=== PATIENT | female | born 1960 | race Caucasian/White ===

== ENCOUNTER → 2017-03-08 11:37 | Day surgery (SDC) | payer MEDICARE, MEDICAID, SELFPAY ==
[2017-03-08 12:03] VITALS: BP 99/57; PULSE 83; RESP 18; TEMP 36.5; O2SAT 96
[2017-03-08 12:10] VITALS: BP 124/67; PULSE 81; RESP 18
[2017-03-08 12:12] VITALS: BP 135/95; PULSE 90; RESP 20
--- NOTE | 2017-03-08 12:16 | P.PCN_ITS ---
- Procedure Date: 03/08/17 Time: 12:14 Anesthesiologist:: Dada Harman CRNA Complications:: None Pre-procedure Diagnosis:: Bilateral sacroiliitis Post-procedure Diagnosis:: Same Indications for Procedure:: Very pleasant 56-year-old white female that comes to our procedure clinic today for bilateral SI joint injections. Patient has extreme point tenderness over the bilateral SI joints. She has responded well to these injections in the past Procedure Details:: Procedure: Bilateral sacroiliac joint injections under fluoroscopy Informed consent was obtained and the risks and benefits of the procedure were explained to the patient.~ The patient was taken to the procedure room and noninvasive monitors were placed including a noninvasive blood pressure cuff and pulse oximeter.~ The patient was placed prone on the procedure table. Both hips were cleansed using Betadine as a cleansing solution. C-arm fluoroscopy was used to view the right sacroiliac joint.~ The skin and subcutaneous tissues were anesthetized using lidocaine 1.5% and a 25-gauge needle.~ After this, a 22- gauge spinal needle was inserted under fluoroscopic guidance into the inferior aspect of the right sacroiliac joint.~ Omnipaque dye was injected and good spread was seen throughout the joint.~ After this, approximately 5 mL of bupivacaine, 0.25% and Depo-Medrol, 40 mg was incrementally injected into the right sacroiliac joint. We then moved to the left sacroiliac joint.~ The skin and subcutaneous tissues were anesthetized using lidocaine 1.5% and a 25-gauge needle.~ After this, a 22- gauge spinal needle was inserted under fluoroscopic guidance into the inferior aspect of the left sacroiliac joint.~ Omnipaque dye was injected and good spread was seen throughout the joint. After this, approximately 5 mL of bupivacaine, 0.25% and Depo-Medrol, 40 mg was incrementally injected into the left sacroiliac joint.~ The patient tolerated the procedure well with no complications. The patient was observed in the Pain Clinic and then was discharged home neurologically intact. Plan and Disposition:: Patient was reevaluated 10 minutes post procedure. She is doing very well. She will return to see us in the clinic for further evaluation.
[2017-03-08 12:21] VITALS: BP 110/64; PULSE 83; RESP 20
== END ==
PROVIDERS: Family Provider Nurse Practitioner Family; PCP Nurse Practitioner Family; Visit Provider Nurse Anesthetist, Certified Registered
DX: M46.1 Sacroiliitis, not elsewhere classified (principal)
CPT/HCPCS: 27096; G0260; J1040

== ENCOUNTER → 2017-04-25 10:08 | Outpatient (POV) | payer MEDICARE, MEDICAID, SELFPAY ==
[2017-04-25 10:21] VITALS: BP 120/55; PULSE 104; RESP 20; O2SAT 96; BMI 23.3
--- NOTE | 2017-04-25 12:39 | HMH.PAINSOAP ---
[facility] Pain Management SOAP Note Subjective:: Patient is a pleasant 56-year-old white female who we are treating in our pain clinic for chronic sacroiliitis bilaterally. Patient has done very well after her last injection. She reports 80-90% relief for several weeks. However she has recently had an increase in pain on the right side. She is also having piriformis pain. She is describes the pain as shocking and radiating down her leg to her knee. States that sitting or standing does relieve it somewhat. Patient has been less active due to this. Patient is interested in injective therapy to help with this situation. Patient has tried and failed anti-inflammatories, physical therapy, medications. ROS General: no recent weight change, no fever, no sleep disturbances Respiratory: no cough, no shortness of air, no recurring pulmonary infections Cardiovascular/Peripheral Vascular: No chest pain, No palpitations, no edema, no shortness of breath. Gastrointestinal: no incontinence, normal bowel movements reported Genitourinary: no incontinence Musculoskeletal: Lumbar back pain, bilateral sacroiliitis, right piriformis syndrome Psychiatric: normal mood/ affect, Neurological: [denies weakness in extremities], [denies balance issues] Objective:: Physical Exam General: Alert and oriented x3, no acute distress, pleasant and cooperative, [on room air] Lungs: Resps E/U, Symmetrical chest expansion, Eyes: PERRL Musculoskeletal: Flexion and extension of lumbar spine somewhat guarded secondary to pain, deep tendon reflexes normal, strength in upper and lower extremities [5/5], [abnormal gait noted], positive Rosa's test on the right side. Extreme point tenderness over the right SI and right piriformis. 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 twice daily for 5 days we will also give her 1 week worth of tramadol 50 mg p.o. twice daily. I discussed this with Dr. Mata and he has reviewed her chart and agrees. Her CAMILLE #[id number] reviewed. I discussed with the patient that this would be a one-time thing. We will also schedule a right SI joint injection along with a right piriformis injection. I believe given the efficacy of the injections in the past that this will be very beneficial for her. Patient has tried and failed anti-inflammatories, physical therapy, medications. This note was dictated using voice recognition software and may contain errors or omissions
--- NOTE | 2017-04-25 12:43 | P.CONS_ITS ---
[facility] Pain Management SOAP Note Subjective:: Patient is a pleasant 56-year-old white female who we are treating in our pain clinic for chronic sacroiliitis bilaterally. Patient has done very well after her last injection. She reports 80-90% relief for several weeks. However she has recently had an increase in pain on the right side. She is also having piriformis pain. She is describes the pain as shocking and radiating down her leg to her knee. States that sitting or standing does relieve it somewhat. Patient has been less active due to this. Patient is interested in injective therapy to help with this situation. Patient has tried and failed anti- inflammatories, physical therapy, medications. ROS General: no recent weight change, no fever, no sleep disturbances Respiratory: no cough, no shortness of air, no recurring pulmonary infections Cardiovascular/Peripheral Vascular: No chest pain, No palpitations, no edema, no shortness of breath. Gastrointestinal: no incontinence, normal bowel movements reported Genitourinary: no incontinence Musculoskeletal: Lumbar back pain, bilateral sacroiliitis, right piriformis syndrome Psychiatric: normal mood/ affect, Neurological: [denies weakness in extremities], [denies balance issues] Objective:: Physical Exam General: Alert and oriented x3, no acute distress, pleasant and cooperative, [ on room air] Lungs: Resps E/U, Symmetrical chest expansion, Eyes: PERRL Musculoskeletal: Flexion and extension of lumbar spine somewhat guarded secondary to pain, deep tendon reflexes normal, strength in upper and lower extremities [5/5], [abnormal gait noted], positive Rosa's test on the right side. Extreme point tenderness over the right SI and right piriformis. 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 twice daily for 5 days we will also give her 1 week worth of tramadol 50 mg p.o. twice daily. I discussed this with Dr. Mata and he has reviewed her chart and agrees. Her CAMILLE #[id number] reviewed. I discussed with the patient that this would be a one-time thing. We will also schedule a right SI joint injection along with a right piriformis injection. I believe given the efficacy of the injections in the past that this will be very beneficial for her. Patient has tried and failed anti-inflammatories, physical therapy, medications. This note was dictated using voice recognition software and may contain errors or omissions
--- NOTE | 2017-04-27 08:09 | PC.PHONENOTE ---
04/25/17-called in Rx for Prednisone 20mg BID x5 days and Tramadol 50mg TID x7 days to pt's pharmacy
== END ==
PROVIDERS: Family Provider Nurse Practitioner Family; PCP Nurse Practitioner Family; Visit Provider Clinical Nurse Specialist Family Health
DX: M46.1 Sacroiliitis, not elsewhere classified (principal)
CPT/HCPCS: 99212

== ENCOUNTER 2017-05-02 09:34 | Day surgery (SDC) | payer MEDICARE, MEDICAID, SELFPAY ==
[2017-04-26 15:18] VITALS: BMI 23.3
[2017-05-02] VITALS (7 sets, daily range): BP systolic 75–109; BP diastolic 49–75; PULSE 63–74; RESP 8–18; TEMP 36.5–36.6; O2SAT 92–98
--- NOTE | 2017-05-02 11:05 | P.PN_ITS ---
[facility] Anesthesia Checklist - Patient Identification Patient Identification: Arm Band, Verbal (Name & ) - Structural Data Admitted From: Home Planned Operative Procedure/s: colonoscopy Consent for Planned Operative Procedure(s) Verified: Yes Verified Documents: Surgical Consent - NPO Status Verified Time NPO: 00:00 - Additional verifications Patient : No Anesthesia Reactions: No Hx Blood Transfusions: No Blood Transfusion Reaction: No Cephalosporin Allergy: No Previous Colonoscopy: No - Cardiovascular Assessment Heart Sounds: S1 & S2 Pulse Strength: Baseline Pulse Rhythm: Regular Peripheral Edema: No - Airway Assessment C-Spine Mobility Assessed: Yes TMJ Mobility Assessed: Yes Dentition: Good Dentition - Neurological Assessment Level of Consciousness: Awake, Alert, Appropriate Hx Seizures: No Numbness or tingling in extremities: No - Anesthesia Plan Anesthesia Risk discussed: Yes Anesthesia Plan: Verified ASA Class: II Anesthesia Type: MAC [facility] Anesthesia HX I have reviewed the patient's past medical history: Yes Medical History: Reports:: Lung Disease (sleep apnea-does not use cpap) Denies:: Cancer, Diabetes Mellitus Type 1, Diabetes Mellitus Type 2, Internal Pacemaker, MRSA, Seizures Other Medical History: Reports: Arthritis, Fibromyalgia, Sinus Problems. Denies : Blood Transfusion Reaction Laterality Cases: Bilateral: Tonsillectomy Other Surgeries: Yes: Appendectomy. No: Pacemaker Amputation: No Fractures: No *Family Hx:: No significant family history
--- NOTE | 2017-05-02 12:00 | HMH.PROC ---
[facility] Procedure Note Procedure Note:: Colonoscopy Procedure Report: Colonoscopy with cold snare polypectomy Endoscopist: Mahad Quiñones II, MD Referring physician: Rosendo PADRON [facility] (obstetrics/gynecology) Date of Procedure: May 02, 2017 Equipment: Olympus 180 Variable Stiffness Pediatric Colonoscope Sedation: MAC sedation Indication: Mrs. Foreman is a 56-year-old female who is here for initial screening colonoscopy. She reports no abdominal pain, weight loss, change in her bowel habits or rectal bleeding. She reports no family history of colon cancer. Procedure: Prior to the procedure, a history and physical exam was performed, and patient's medications and allergies were reviewed. The risks, benefits and alternatives of the sedation and procedure were discussed with the patient. All questions were answered and informed consent was obtained. The patient was brought to the procedure room. Patient identification and proposed procedure were verified by the physician and the nurse. The patient was placed in a left lateral decubitus position and the scope was passed under direct vision. Throughout the procedure, the patient's blood pressure, pulse, and oxygen saturations were monitored continuously. The colonoscopy was accomplished without difficulty. The patient tolerated the procedure well. Findings: On digital rectal examination there was normal rectal tone. There were no external hemorrhoids. The colonoscope was introduced through the anal canal to the rectum and advanced to the cecum. The ileocecal valve and appendiceal orifice were identified. The scope was advanced a short distance into the ileum which appeared grossly normal. The scope was then withdrawn into the colon. The cecum, ascending and transverse colon and mucosa were grossly normal. There were scattered diverticuli throughout the descending and sigmoid colon (LEFT colon). There was a 7-8 mm polyp in the rectosigmoid removed via cold snare polypectomy. The rectum itself was normal. Upon retroflexion within the rectum there were grade 1 internal hemorrhoids. Impression: 1. Rectosigmoid polyp (7-8 mm) 2. Left-sided diverticulosis 3. Grade 1 internal hemorrhoids Plan: I will follow up the polyp pathology and recommend repeat colonoscopy again in 5 years based upon the polyp histology. I would encourage fiber supplementation on a long-term daily maintenance basis.
--- NOTE | 2017-05-02 12:05 | P.PCN_ITS ---
[facility] Procedure Note Procedure Note:: Colonoscopy Procedure Report: Colonoscopy with cold snare polypectomy Endoscopist: Mahad Quiñones II, MD Referring physician: Rosendo PADRON [facility] (obstetrics/ gynecology) Date of Procedure: May 02, 2017 Equipment: Olympus 180 Variable Stiffness Pediatric Colonoscope Sedation: MAC sedation Indication: Mrs. Foreman is a 56-year-old female who is here for initial screening colonoscopy. She reports no abdominal pain, weight loss, change in her bowel habits or rectal bleeding. She reports no family history of colon cancer. Procedure: Prior to the procedure, a history and physical exam was performed, and patient' s medications and allergies were reviewed. The risks, benefits and alternatives of the sedation and procedure were discussed with the patient. All questions were answered and informed consent was obtained. The patient was brought to the procedure room. Patient identification and proposed procedure were verified by the physician and the nurse. The patient was placed in a left lateral decubitus position and the scope was passed under direct vision. Throughout the procedure, the patient's blood pressure, pulse, and oxygen saturations were monitored continuously. The colonoscopy was accomplished without difficulty. The patient tolerated the procedure well. Findings: On digital rectal examination there was normal rectal tone. There were no external hemorrhoids. The colonoscope was introduced through the anal canal to the rectum and advanced to the cecum. The ileocecal valve and appendiceal orifice were identified. The scope was advanced a short distance into the ileum which appeared grossly normal. The scope was then withdrawn into the colon. The cecum, ascending and transverse colon and mucosa were grossly normal. There were scattered diverticuli throughout the descending and sigmoid colon (LEFT colon). There was a 7-8 mm polyp in the rectosigmoid removed via cold snare polypectomy. The rectum itself was normal. Upon retroflexion within the rectum there were grade 1 internal hemorrhoids. Impression: 1. Rectosigmoid polyp (7-8 mm) 2. Left-sided diverticulosis 3. Grade 1 internal hemorrhoids Plan: I will follow up the polyp pathology and recommend repeat colonoscopy again in 5 years based upon the polyp histology. I would encourage fiber supplementation on a long-term daily maintenance basis.
== END 2017-05-02 13:10 | disposition home or self-care (01) ==
LOC: OUTP 09:36
PROVIDERS: Family Provider Nurse Practitioner Family; PCP Nurse Practitioner Family; Visit Provider Internal Medicine Gastroenterology
PROC: 0DJD8ZZ Inspection of Lower Intestinal Tract, Via Natural or Artificial Opening Endoscopic (ICD-10-PCS; CPT 45378; principal; 2017-05-02 11:00)
DX: Z12.11 Encounter for screening for malignant neoplasm of colon (principal); K63.5 Polyp of colon; K57.30 Diverticulosis of large intestine without perforation or abscess without bleeding; K64.0 First degree hemorrhoids
CPT/HCPCS: 45380; 88305

== ENCOUNTER 2017-05-20 15:24 | Day surgery (SDC) | payer MEDICARE, MEDICAID, SELFPAY ==
[2017-05-20 16:11] VITALS: BP 96/56; PULSE 80; RESP 16; TEMP 36.8; O2SAT 98; BMI 23.0
[2017-05-20 16:39] VITALS: BP 127/58; PULSE 85; RESP 20
[2017-05-20 16:41] VITALS: BP 129/74; PULSE 95; RESP 20
--- NOTE | 2017-05-20 16:44 | HMH.PMPROC ---
- Procedure Date: 05/20/17 Time: 16:44 Anesthesiologist:: Yong Mata MD Complications:: None Pre-procedure Diagnosis:: Sacroiliitis and piriformis syndrome/sciatica Post-procedure Diagnosis:: Same Indications for Procedure:: Patient is a pleasant 56-year-old white female who we are treating for right sided hip pain. She is tender over the right SI joint. She has a positive Rosa's test on the right side. She also has right-sided sciatica and is tender over the right piriformis muscle. We will do a right SI joint injection and a right piriformis muscle/sciatic nerve block today. Procedure Details:: Right SI joint injection under fluoroscopy Informed consent was obtained and the risks and benefits of the procedure was going to the patient. Patient was taken to the procedure room. Patient was placed prone on the procedure table. The right hip was prepped using ChloraPrep. The skin and subcutaneous tissues were anesthetized using lidocaine. I placed a 22-gauge spinal needle into the inferior aspect of the right SI joint. Needle placement was confirmed with dye. After this we injected 5 mL bupivacaine 0.25% and Depo-Medrol 40 mg into the right SI joint. The patient tolerated the procedure well with no complication. Right piriformis muscle/sciatic nerve block The right buttock was prepped using ChloraPrep. A 25-gauge needle was used after palpation of the piriformis muscle. We injected 10 mL's of bupivacaine 0.25% and Depo-Medrol 40 mg into the area of the right piriformis muscle and sciatic nerve. Patient tolerated the procedure well with no complications. Plan and Disposition:: We will follow-up with this patient in 2 weeks. We will reevaluate her symptoms at this time
[2017-05-20 16:45] VITALS: BP 125/70; PULSE 91; RESP 18; O2SAT 98
== END 2017-05-20 16:50 | disposition home or self-care (01) ==
LOC: SC.PAINP 15:27
PROVIDERS: Family Provider Nurse Practitioner Family; PCP Nurse Practitioner Family; Visit Provider Anesthesiology
DX: M46.1 Sacroiliitis, not elsewhere classified (principal); M54.31 Sciatica, right side
CPT/HCPCS: 27096; 64445; G0260; J1030

== ENCOUNTER → 2017-06-13 13:31 | Outpatient (POV) | payer MEDICARE, SELFPAY ==
[2017-06-13 13:48] VITALS: BMI 23.0
--- NOTE | 2017-06-13 16:24 | HMH.PAINSOAP ---
[facility] Pain Management SOAP Note Subjective:: Patient is a pleasant 56-year-old white female who we are following up with after right piriformis nerve block and a right SI joint injection. Patient is doing much better however she is suffering from a sinus infection. Patient currently on a Z-Jackson, steroids, cough syrup. Patient states her piriformis pain is completely gone she does still have some bilateral SI joint pain. Patient is interested in doing a bilateral SI joint injection after her sinus infection heals. Patient rates her pain a 6 out of 10 today. ROS General: no recent weight change, no fever, no sleep disturbances Respiratory: no cough, no shortness of air, no recurring pulmonary infections Cardiovascular/Peripheral Vascular: No chest pain, No palpitations, no edema, no shortness of breath. Gastrointestinal: no incontinence, normal bowel movements reported Genitourinary: no incontinence Musculoskeletal: SI joint pain Psychiatric: normal mood/ affect Neurological: [denies weakness in extremities], [denies balance issues] Objective:: Physical Exam General: Alert and oriented x3, no acute distress, pleasant and cooperative, [on room air] Lungs: Resps E/U, Symmetrical chest expansion, Eyes: PERRL Musculoskeletal: Flexion and extension of lumbar spine somewhat guarded secondary to pain, deep tendon reflexes normal, strength in upper and lower extremities [5/5], slightly antalgic gait noted, positive Rosa's test bilaterally Neurological: speech clear, 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 Patient is still having relief from her previous injections. Patient's tried and failed medications, anti-inflammatories, physical therapy. Patient has had good relief with injections in the past and I believe that this would be beneficial in the future. This note was dictated using voice recognition software and may contain errors or omissions
--- NOTE | 2017-06-13 16:28 | P.CONS_ITS ---
[facility] Pain Management SOAP Note Subjective:: Patient is a pleasant 56-year-old white female who we are following up with after right piriformis nerve block and a right SI joint injection. Patient is doing much better however she is suffering from a sinus infection. Patient currently on a Z-Jackson, steroids, cough syrup. Patient states her piriformis pain is completely gone she does still have some bilateral SI joint pain. Patient is interested in doing a bilateral SI joint injection after her sinus infection heals. Patient rates her pain a 6 out of 10 today. ROS General: no recent weight change, no fever, no sleep disturbances Respiratory: no cough, no shortness of air, no recurring pulmonary infections Cardiovascular/Peripheral Vascular: No chest pain, No palpitations, no edema, no shortness of breath. Gastrointestinal: no incontinence, normal bowel movements reported Genitourinary: no incontinence Musculoskeletal: SI joint pain Psychiatric: normal mood/ affect Neurological: [denies weakness in extremities], [denies balance issues] Objective:: Physical Exam General: Alert and oriented x3, no acute distress, pleasant and cooperative, [ on room air] Lungs: Resps E/U, Symmetrical chest expansion, Eyes: PERRL Musculoskeletal: Flexion and extension of lumbar spine somewhat guarded secondary to pain, deep tendon reflexes normal, strength in upper and lower extremities [5/5], slightly antalgic gait noted, positive Rosa's test bilaterally Neurological: 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 Patient is still having relief from her previous injections. Patient's tried and failed medications, anti-inflammatories, physical therapy. Patient has had good relief with injections in the past and I believe that this would be beneficial in the future. This note was dictated using voice recognition software and may contain errors or omissions
== END ==
PROVIDERS: Family Provider Nurse Practitioner Family; PCP Nurse Practitioner Family; Visit Provider Clinical Nurse Specialist Family Health
DX: M46.1 Sacroiliitis, not elsewhere classified (principal)
CPT/HCPCS: 99212

== ENCOUNTER → 2017-09-08 09:49 | Outpatient (CLI) | payer MEDICARE, MEDICAID, SELFPAY ==
--- NOTE | 2017-09-08 09:53 | XR_ITS ---
XR DEXA axial skeleton HISTORY: ITS.REASON: POST MENOPAUSAL ORDERING PHYSICIAN: Radha ESTRADA Young PATIENT AGE: 56 years COMPARISON: None FINDINGS: The BMD measured at the left femoral neck is 0.595 g/cm squared with a T score of -3.2. This is considered Osteoporotic according to the World Health Organization criteria. Fracture risk is High. Treatment is advised. L1 L4 density has a T score of -2.1 IMPRESSION: Osteoporosis with high fracture risk. Pharmacological treatment suggested. Recommend follow-up exam August 2018
--- NOTE | 2017-09-08 09:54 | MM_ITS ---
MM Dig screening mamm BI w/CAD CAD Screening COMPARISON: Digital mammograms with CAD 08/17/2016 and follow-up additional views right breast 09/02/2016 INDICATION: There is a history of breast cancer patient maternal grandmother and maternal great-grandmother both after menopause. TECHNIQUE: Standard CC and MLO images were obtained. R2 CAD reviewed. FINDINGS: Scattered fibroglandular densities are seen in the central portions of both breasts and the findings are bilateral and symmetrical. There is no new or suspicious lesion in either breast and there are no suspicious microcalcifications. IMPRESSION: Fibrofatty parenchyma no suspicious lesion seen BI-RADS Category: 1 Negative RECOMMENDED FOLLOW-UP: 1YR - 1 YEAR FOLLOW-UP (A letter has been sent to the patient regarding results of the study.)
== END ==
PROVIDERS: Family Provider Nurse Practitioner Family; PCP Nurse Practitioner Family; Visit Provider Nurse Practitioner Family
DX: Z12.31 Encounter for screening mammogram for malignant neoplasm of breast (principal); Z78.0 Asymptomatic menopausal state
CPT/HCPCS: 77067; 77080

== ENCOUNTER → 2017-09-13 09:24 | Outpatient (POV) | payer MEDICARE, MEDICAID, SELFPAY ==
--- NOTE | 2017-09-13 09:40 | HMH.PAINSOAP ---
[facility] Pain Management SOAP Note Subjective:: She is a pleasant 56-year-old white female who presents today for follow-up after bilateral SI joint injections. Patient did have some relief right after however she did not have any long-term relief with it. Patient states that her pain is in her mid back at this time. She states that rotation makes the pain worse. Patient has no radicular symptoms. Patient rates her pain a 7 out of 10 today. Patient and failed medications anti-inflammatories and physical therapy. Patient is continuing to do home stretching regimen. Patient does have an MRI showing facet arthropathy at her L3-L4 L4-L5 levels. Patient has never had any kind of injection other than an SI joint injection. I believe a facet joint injection/medial branch block may be beneficial. ROS General: no recent weight change, no fever, no sleep disturbances Respiratory: no cough, no shortness of air, no recurring pulmonary infections Cardiovascular/Peripheral Vascular: No chest pain, No palpitations, no edema, no shortness of breath. Gastrointestinal: no incontinence, normal bowel movements reported Genitourinary: no incontinence Musculoskeletal: Back pain Psychiatric: normal mood/ affect Neurological: [denies weakness in extremities], [denies balance issues] Objective:: Physical Exam General: Alert and oriented x3, no acute distress, pleasant and cooperative, [on room air] Lungs: Resps E/U, Symmetrical chest expansion, Eyes: PERRL Musculoskeletal: Flexion and extension of lumbar spine somewhat guarded secondary to pain, deep tendon reflexes normal, strength in upper and lower extremities [5/5], slightly antalgic gait noted, positive at loading of the lumbar spine bilaterally. 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 I will follow-up with the patient 2 weeks after her injection. Patient's tried and failed other therapies along with her last set of SI joint injections. Patient is continuing to try to stay active. Patient is not on any anticoagulation therapy. I will also call in 2 weeks of tramadol 50 mg 1 p.o. twice daily. This will be a one-time prescription. This note was dictated using voice recognition software and may contain errors or omissions
[2017-09-13 09:41] VITALS: BP 107/55; PULSE 91; RESP 18; O2SAT 98; BMI 23.8
--- NOTE | 2017-09-13 09:44 | P.CONS_ITS ---
[facility] Pain Management SOAP Note Subjective:: She is a pleasant 56-year-old white female who presents today for follow-up after bilateral SI joint injections. Patient did have some relief right after however she did not have any long-term relief with it. Patient states that her pain is in her mid back at this time. She states that rotation makes the pain worse. Patient has no radicular symptoms. Patient rates her pain a 7 out of 10 today. Patient and failed medications anti-inflammatories and physical therapy. Patient is continuing to do home stretching regimen. Patient does have an MRI showing facet arthropathy at her L3-L4 L4-L5 levels. Patient has never had any kind of injection other than an SI joint injection. I believe a facet joint injection/medial branch block may be beneficial. ROS General: no recent weight change, no fever, no sleep disturbances Respiratory: no cough, no shortness of air, no recurring pulmonary infections Cardiovascular/Peripheral Vascular: No chest pain, No palpitations, no edema, no shortness of breath. Gastrointestinal: no incontinence, normal bowel movements reported Genitourinary: no incontinence Musculoskeletal: Back pain Psychiatric: normal mood/ affect Neurological: [denies weakness in extremities], [denies balance issues] Objective:: Physical Exam General: Alert and oriented x3, no acute distress, pleasant and cooperative, [ on room air] Lungs: Resps E/U, Symmetrical chest expansion, Eyes: PERRL Musculoskeletal: Flexion and extension of lumbar spine somewhat guarded secondary to pain, deep tendon reflexes normal, strength in upper and lower extremities [5/5], slightly antalgic gait noted, positive at loading of the lumbar spine bilaterally. Neurological: speech clear, label sewer equal, no gross sensory deficits Assessment:: Sacroiliitis, degenerative disc disease of the lumbar spine, facet arthropathy of the lumbar spine Plan:: We will schedule an L3-L4 L4-L5 lumbar facet joint injection/medial branch block. I will follow-up with the patient 2 weeks after her injection. Patient' s tried and failed other therapies along with her last set of SI joint injections. Patient is continuing to try to stay active. Patient is not on any anticoagulation therapy. I will also call in 2 weeks of tramadol 50 mg 1 p.o. twice daily. This will be a one-time prescription. This note was dictated using voice recognition software and may contain errors or omissions
== END ==
PROVIDERS: Family Provider Nurse Practitioner Family; PCP Nurse Practitioner Family; Visit Provider Clinical Nurse Specialist Family Health
DX: M46.1 Sacroiliitis, not elsewhere classified (principal)
CPT/HCPCS: 99212

== ENCOUNTER → 2017-10-18 09:05 | Outpatient (POV) | payer MEDICARE, SELFPAY ==
[2017-10-18 09:19] VITALS: BP 105/72; PULSE 90; RESP 18; O2SAT 98; BMI 23.3
--- NOTE | 2017-10-18 09:30 | HMH.PAINSOAP ---
[facility] Pain Management SOAP Note Subjective:: Patient is a pleasant 56-year-old white female who we are treating for back pain and lumbar spondylosis and facet arthropathy. Patient status post lumbar medial branch block. Patient did not get any relief from this. Patient states most of her pain is axial in nature and in her low back. Patient states she has been using a Lidoderm patch and that has been helpful for her. We also started her on a low dose of tramadol as needed. Patient denies side effects to this. Patient's CAMILLE #[id number] reviewed and appropriate. Patient and I had a discussion about neuro stimulation. Patient would like to take the information home and review it. ROS General: no recent weight change, no fever, no sleep disturbances Respiratory: no cough, no shortness of air, no recurring pulmonary infections Cardiovascular/Peripheral Vascular: No chest pain, No palpitations, no edema, no shortness of breath. Gastrointestinal: no incontinence, normal bowel movements reported Genitourinary: no incontinence Musculoskeletal: Back pain Psychiatric: normal mood/ affect Neurological: [denies weakness in extremities], [denies balance issues] Objective:: Physical Exam General: Alert and oriented x3, no acute distress, pleasant and cooperative, [on room air] Lungs: Resps E/U, Symmetrical chest expansion, Eyes: PERRL Musculoskeletal: Flexion and extension of lumbar spine somewhat guarded secondary to pain, deep tendon reflexes normal, strength in upper and lower extremities [5/5], slightly antalgic gait noted Neurological: 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 twice daily dispensing 60 for 1 month. We will also call in Lidoderm patches for the patient. If the patient does not get these approved for her insurance we will call in Lidoderm cream. Patient is continuing to work. I gave the patient information in regards to neuro stimulation. I will follow-up with the patient in 1 month. This note was dictated using voice recognition software and may contain errors or omissions
--- NOTE | 2017-10-18 09:33 | P.CONS_ITS ---
[facility] Pain Management SOAP Note Subjective:: Patient is a pleasant 56-year-old white female who we are treating for back pain and lumbar spondylosis and facet arthropathy. Patient status post lumbar medial branch block. Patient did not get any relief from this. Patient states most of her pain is axial in nature and in her low back. Patient states she has been using a Lidoderm patch and that has been helpful for her. We also started her on a low dose of tramadol as needed. Patient denies side effects to this. Patient's CAMILLE #[id number] reviewed and appropriate. Patient and I had a discussion about neuro stimulation. Patient would like to take the information home and review it. ROS General: no recent weight change, no fever, no sleep disturbances Respiratory: no cough, no shortness of air, no recurring pulmonary infections Cardiovascular/Peripheral Vascular: No chest pain, No palpitations, no edema, no shortness of breath. Gastrointestinal: no incontinence, normal bowel movements reported Genitourinary: no incontinence Musculoskeletal: Back pain Psychiatric: normal mood/ affect Neurological: [denies weakness in extremities], [denies balance issues] Objective:: Physical Exam General: Alert and oriented x3, no acute distress, pleasant and cooperative, [ on room air] Lungs: Resps E/U, Symmetrical chest expansion, Eyes: PERRL Musculoskeletal: Flexion and extension of lumbar spine somewhat guarded secondary to pain, deep tendon reflexes normal, strength in upper and lower extremities [5/5], slightly antalgic gait noted Neurological: speech clear, care partner equal, no gross sensory deficits Assessment:: Degenerative disc disease of lumbar spine with lumbar spondylosis and facet arthropathy Plan:: I will call in some tramadol 50 mg 1 p.o. twice daily dispensing 60 for 1 month. We will also call in Lidoderm patches for the patient. If the patient does not get these approved for her insurance we will call in Lidoderm cream. Patient is continuing to work. I gave the patient information in regards to neuro stimulation. I will follow-up with the patient in 1 month. This note was dictated using voice recognition software and may contain errors or omissions
== END ==
PROVIDERS: Family Provider Nurse Practitioner Family; PCP Nurse Practitioner Family; Visit Provider Clinical Nurse Specialist Family Health
DX: M47.896 Other spondylosis, lumbar region (principal); M51.36 Other intervertebral disc degeneration, lumbar region; M54.06 Panniculitis affecting regions of neck and back, lumbar region
CPT/HCPCS: 99213

== ENCOUNTER → 2017-11-07 14:32 | Outpatient (POV) | payer MEDICARE, SELFPAY ==
[2017-11-07 15:04] VITALS: BP 94/61; PULSE 86; RESP 18; O2SAT 98; BMI 23.3
--- NOTE | 2017-11-07 16:13 | HMH.PAINSOAP ---
[facility] Pain Management SOAP Note Subjective:: She is a pleasant 56-year-old white female who we are treating for low back pain and lumbar spondylosis with facet arthropathy. Patient has had medial branch blocks however she did not get any relief it months was her pain is axial in nature. Patient has been using a Lidoderm patch. Patient is here today to discuss using lidocaine cream. We started her on low-dose tramadol. Patient states that she does not have any pills left however she just filled her prescription 2 weeks ago. I called the pharmacy and they had record of her signing for the prescription on 10/21/2017. Patient states that she does not remember where she put the pills. I discussed with her that this is an issue. Patient would like to move forward with neuro stimulation. I do believe it would be beneficial for her. Patient has a psychological evaluation scheduled for the of this month. ROS General: no recent weight change, no fever, no sleep disturbances Respiratory: no cough, no shortness of air, no recurring pulmonary infections Cardiovascular/Peripheral Vascular: No chest pain, No palpitations, no edema, no shortness of breath. Gastrointestinal: no incontinence, normal bowel movements reported Genitourinary: no incontinence Musculoskeletal: Back pain Psychiatric: normal mood/ affect Neurological: [denies weakness in extremities], [denies balance issues] Objective:: Physical Exam General: Alert and oriented x3, no acute distress, pleasant and cooperative, [on room air] Lungs: Resps E/U, Symmetrical chest expansion, Eyes: PERRL Musculoskeletal: Flexion and extension of lumbar spine somewhat guarded secondary to pain, deep tendon reflexes normal, strength in upper and lower extremities [5/5], [abnormal gait noted] Neurological: speech clear, director investor relations equal, no gross sensory deficits Assessment:: Degenerative disc disease lumbar spine with lumbar spondylosis and facet arthropathy Plan:: We will call in some lidocaine cream for the patient. We will also move forward with neuro stimulation trial. Patient is scheduled for psychological evaluation. I also encouraged her to look for the medication that she feels that she must have misplaced. I discussed with her we would not be prescribing any more medication.. This note was dictated using voice recognition software and may contain errors or omissions
== END ==
PROVIDERS: Family Provider Nurse Practitioner Family; PCP Nurse Practitioner Family; Visit Provider Clinical Nurse Specialist Family Health
DX: M51.36 Other intervertebral disc degeneration, lumbar region (principal); M46.86 Other specified inflammatory spondylopathies, lumbar region
CPT/HCPCS: 99213

== ENCOUNTER → 2018-03-14 09:48 | Outpatient (POV) | payer MEDICARE, SELFPAY ==
[2018-03-14 10:11] VITALS: BP 105/66; PULSE 85; RESP 18; O2SAT 98; BMI 23.0
--- NOTE | 2018-03-14 10:41 | HMH.PAINSOAP ---
[facility] Pain Management SOAP Note Subjective:: Patient is a pleasant 57-year-old white female who presents today for follow-up. Patient is awaiting her neurostimulator implant. Patient states that during her trial she got up to 80% relief of her back pain. Patient states she was much more functional. Patient is currently taking tramadol 50 mg 1 p.o. twice daily. Patient would like to extend this for the duration of her wait time. She denies side effects the medication. [place] is appropriate. She rates her pain an 8 out of 10 today. ROS General: no recent weight change, no fever, no sleep disturbances Respiratory: no cough, no shortness of air, no recurring pulmonary infections Cardiovascular/Peripheral Vascular: No chest pain, No palpitations, no edema, no shortness of breath. Gastrointestinal: no incontinence, normal bowel movements reported Genitourinary: no incontinence Musculoskeletal: Back pain, leg pain Psychiatric: normal mood/ affect Neurological: [denies weakness in extremities], [denies balance issues] Objective:: Physical Exam General: Alert and oriented x3, no acute distress, pleasant and cooperative, [on room air] Lungs: Resps E/U, Symmetrical chest expansion, Eyes: PERRL Musculoskeletal: Flexion and extension of lumbar spine somewhat guarded secondary to pain, deep tendon reflexes normal, strength in upper and lower extremities [5/5], [abnormal gait noted] Neurological: speech clear, supervisor compounding and finishing equal, no gross sensory deficits Assessment:: Degenerative disc disease lumbar spine with lumbar radiculopathy symptoms, lumbar spondylosis and facet arthropathy Plan:: We will refill her tramadol 50 mg 1 p.o. twice daily give her 1 month with 1 refill. Patient is scheduled to have her neurostimulator implanted on the of this month. This note was dictated using voice recognition software and may contain errors or omissions
== END ==
PROVIDERS: PCP Nurse Practitioner Family; Visit Provider Clinical Nurse Specialist Family Health
DX: M51.16 Intervertebral disc disorders with radiculopathy, lumbar region (principal); M47.896 Other spondylosis, lumbar region; M54.06 Panniculitis affecting regions of neck and back, lumbar region
CPT/HCPCS: 99213

== ENCOUNTER → 2018-04-17 13:03 | Outpatient (POV) | payer MEDICARE, SELFPAY ==
[2018-04-17 13:24] VITALS: BP 124/82; PULSE 85; RESP 18; O2SAT 98; BMI 22.8
--- NOTE | 2018-04-17 13:37 | HMH.PAINSOAP ---
[facility] Pain Management SOAP Note Subjective:: Is a very pleasant 57-year-old white female who presents today for follow-up after her neurostimulator. Patient's neurostimulator battery is at this time she has not been able to charge it. We will help her with this today. Patient stitches have been removed the sites have healed she is got no sign symptoms of infection. Patient rates her pain a 2 out of 3. Patient states she was doing very well prior to her battery dying. ROS General: no recent weight change, no fever, no sleep disturbances Respiratory: no cough, no shortness of air, no recurring pulmonary infections Cardiovascular/Peripheral Vascular: No chest pain, No palpitations, no edema, no shortness of breath. Gastrointestinal: no incontinence, normal bowel movements reported Genitourinary: no incontinence Musculoskeletal: Back pain leg pain Psychiatric: normal mood/ affect Neurological: [denies weakness in extremities], [denies balance issues] Objective:: Physical Exam General: Alert and oriented x3, no acute distress, pleasant and cooperative, [on room air] Lungs: Resps E/U, Symmetrical chest expansion, Eyes: PERRL Musculoskeletal: Flexion and extension of lumbar spine somewhat guarded secondary to pain, deep tendon reflexes normal, strength in upper and lower extremities [5/5], antalgic gait noted Neurological: speech clear, household refrigerator mechanic equal, no gross sensory deficits Assessment:: Degenerative disc disease lumbar spine with lumbar radiculopathy and lumbar spondylosis Plan:: We will see the patient back in 1 month and reassess her symptoms at that time. Patient will be shown how to recharge her battery prior to leaving today. She is been instructed to call the office if she has any issues prior to her next appointment. Dr. Mata has reviewed this note and agrees with this plan of care. This note was dictated using voice recognition software and may contain errors or omissions
== END ==
PROVIDERS: PCP Nurse Practitioner Family; Visit Provider Clinical Nurse Specialist Family Health
DX: M51.16 Intervertebral disc disorders with radiculopathy, lumbar region (principal); M47.816 Spondylosis without myelopathy or radiculopathy, lumbar region
CPT/HCPCS: 99213

== ENCOUNTER → 2018-04-25 14:50 | Outpatient (CLI) | payer MEDICARE, SELFPAY ==
[2018-04-25 15:49] LABS: Basophils # 0.1 K/mm3 (0-0.2); Basophils % 0.6 % (0.1-2.0); Eosinophils # 0.3 K/mm3 (0.0-0.4); Eosinophils % 2.4 % (0.1-12.0); Hematocrit 40.7 % (37.0-47.0); Hemoglobin 13.3 g/dL (12.2-16.2); Lymphocytes # 4.1 K/mm3 (0.7-4.5); Mean Corpuscular HGB Conc 32.8 g/dL (31.8-35.4); Mean Corpuscular Hemoglobin 33.1 pg (27.0-31.2); Mean Platelet Volume 8.4 fl (7.4-10.4); Monocytes # 0.3 K/mm3 (0.1-1.0); Monocytes % 2.6 % (1.7-9.3); Neutrophils % 59.5 % (37.0-80.0); Platelet Count 282 K/mm3 (142-424); Red Blood Count 4.03 M/mm3 (4.20-5.40); Red Cell Distribution Width 13.5 % (11.5-17.5); White Blood Count 11.8 K/mm3 (4.8-10.8)
[2018-04-25 16:32] LABS: Alanine Aminotransferase 22 U/L (12-78); Albumin Level 3.6 gm/dL (3.4-5.0); Albumin/Globulin Ratio 1.2 (1.1-1.8); Alkaline Phosphatase 83 U/L (46-116); Amylase 55 U/L (25-115); Aspartate Amino Transferase 9 U/L (15-37); Bilirubin,Total 0.2 mg/dL (0.2-1.0); Blood Urea Nitrogen 8 mg/dL (7-18); Calcium 8.6 mg/dL (8.5-10.1); Carbon Dioxide 30 mmol/L (21.0-32.0); Chloride 106 mmol/L (98-107); Creatinine,Serum 0.84 mg/dL (0.55-1.02); Estimated Glomerular Filt Rate 70 ml/min (>60); GFR (African American) 85 ML/MIN (>60); Globulin 3.1 gm/dl (1.3-3.2); Glucose 69 mg/dL (74-106); Lipase 188 u/L (73-393); Sodium 142 mmol/L (136-145); Total Protein,Serum 6.7 gm/dL (6.4-8.2)
== END ==
PROVIDERS: Visit Provider Nurse Practitioner Family
DX: R11.0 Nausea (principal)
CPT/HCPCS: 36415; 80053; 82150; 83690; 85025

== ENCOUNTER → 2018-04-27 12:14 | Outpatient (CLI) | payer MEDICARE, SELFPAY ==
[2018-04-28 12:38] LABS: H. pylori Breath Test Negative (Negative)
== END ==
PROVIDERS: Visit Provider Nurse Practitioner Family
DX: R11.0 Nausea (principal)
CPT/HCPCS: 83013

== ENCOUNTER → 2018-05-04 08:46 | Outpatient (CLI) | payer MEDICARE, SELFPAY ==
--- NOTE | 2018-05-04 08:50 | CT_ITS ---
CT abdomen pelvis w con INDICATION: Mid Abdominal pain 3 months. Nodule .: ABD PAIN prior appendectomy ORDERING PHYSICIAN: Naya Goodwin PATIENT AGE: 57 years COMPARISON: No prior CT abdomen CT chest 05/08/2009 includes uppermost abdomen TECHNIQUE: 75 cc Optiray 350. Along with Redicat oral contrast Axial images obtained with sagittal and coronal reformats. All CT scans at the facility use one or more dose reduction, viz: automated exposure control, ma/kV adjustment per patient size (including targeted exams where dose is matched to indication, i.e. head), or iterative reconstruction technique. FINDINGS: Lung bases, no active disease. Abdomen/pelvis Liver, spleen, pancreas appears satisfactory. Unremarkable. Stable. Adrenals unremarkable Gallbladder. Upper normal wall thickness. Suspect partially calcified Gallstone posterior gallbladder on axial image 39 sagittal 29.. Suggest gallbladder ultrasound to further evaluate given these symptoms. No biliary ductal dilatation. Kidneys. TRACT . Right kidney. Extrarenal pelvis on right but no hydronephrosis. No dilatation ureter otherwise. Left kidney. Unremarkable. No calculi nor obstruction. Ureters unremarkable. PELVIS mild diffuse urinary bladder wall thickening. Warrants correlation urinalysis. Possible cystitis, UTI Small postmenopausal uterus, anteverted. Generous venous structures about the uterus. Reflect mild pelvic congestion but nonspecific. (Axial image 89.) No adnexal masses. Normal size ovaries. No free fluid abdomen or pelvis GI TRACT . Upper normal wall thickness at GE junction. Stomach unremarkable. Duodenal loop appears satisfactory. Upper normal wall thickness. Small bowel appears normal throughout. Terminal ileum unremarkable. Appendix removed. Large bowel. There is some liquid stool with air-fluid levels and contrast at the right colon, and transverse colon. Could partly be related to the oral contrast to reflect some developing loose stool, diarrhea. Correlation required. There are few diverticuli sigmoid colon but no good evidence of diverticulitis. Facet hypertrophy lower L-spine. Lumbar vertebral bodies intact. Mild grade 1 spinal listhesis of L4 on L5 at to manage hypertrophic facet changes at this level. . Stimulator device overlying the right back, with stimulator lead entering the thecal sac posteriorly at T11/12 level. IMPRESSION 1. No discrete acute findings abdomen nor pelvis 2. . Gallbladder. Suspect gallstone..- Suggest gallbladder ultrasound. Upper normal wall thickness gallbladder. . 3. Diffuse wall thickening at urinary bladder.-Possible cystitis.. Warrants correlation urinalysis 4. Extrarenal pelvis on right kidney but No hydronephrosis nor urinary tract obstruction. But no urinary tract calculi. 5. Diverticulosis sigmoid colon but no diverticulitis. 6. Trace degenerative anterolisthesis L4 on L5.- Mainly due to Prominent degenerative facet changes at this level. 7. Stimulator device overlying the lower back with lead entering at lower T-spine and passing superiorly
== END ==
PROVIDERS: PCP Nurse Practitioner Family; Visit Provider Nurse Practitioner Family
DX: R10.84 Generalized abdominal pain (principal)
CPT/HCPCS: 74177; Q9967

== ENCOUNTER 2018-05-06 12:02 | Observation (INO) ==
--- NOTE | 2018-05-06 12:23 | Emergency Department Note ---
ED Disposition Clinical Impression: Chronic pain syndrome, UTI (urinary tract infection), Cholelithiasis, Acute cholecystitis Disposition: Still a Patient Condition on Discharge: Fair - Critical Care Critical Care Time: No Attestation: On , the high probability of a clinically significant, sudden or life threatening deterioration of the following system(s) required my full and direct attention, intervention and personal management. The time I documented below is in addition to time spent performing reported procedures but includes the following listed in this critical care notation. Medical Decision Making - [place] Inquiry Pt receiving controlled substance: No [place] was queried for this patient: No Vital Signs: 05/06/18 12:30 05/06/18 14:22 05/06/18 14:30 Temperature 98.5 F Temperature Source Oral Pulse Rate [Left Radial] 94 H 86 84 Respiratory Rate 18 Blood Pressure [Right Arm] 112/66 121/58 L Blood Pressure Mean [Right Arm] 81 79 Blood Pressure Source [Right Arm] Automatic Cuff Blood Pressure Position [Right Arm] Sitting 02 Sat by Pulse Oximetry 97 98 97 Oxygen Delivery Method Room Air - Lab Data Lab Results 05/06/18 12:40: WBC 7.5, RBC 4.11 L, Hgb 13.6, Hct 40.4, MCV 98.3, MCH 33.1 H, MCHC 33.6, RDW 13.6, Plt Count 273, MPV 8.3, Neut % (Auto) 64.4, Lymph % (Auto) 28.2, [place] % (Auto) 4.2, Eos % (Auto) 2.4, Baso % (Auto) 0.7, Neut # (Auto) 4.8, Lymph # (Auto) 2.1, [place] # (Auto) 0.3, Eos # (Auto) 0.2, Baso # (Auto) 0.1 05/06/18 12:40: Sodium 145, Potassium 3.5, Chloride 107, Carbon Dioxide 29, Anion Gap 12.5, BUN 6 L, Creatinine 0.75, Estimated Creat Clear 73, Estimated GFR 80, Est GFR ( Amer) 97, Glucose 90, Calcium 8.9, Total Bilirubin 0.3, AST 8 L, ALT 18, Alkaline Phosphatase 84, Troponin I < 0.02, Total Protein 7.2, Albumin 3.4, Globulin 3.8 H, Albumin/Globulin Ratio 0.9 L, Lipase 119 05/06/18 12:43: Urine Color Yellow, Urine Appearance Clear, Urine pH 6.5, Ur Specific [place] <= 1.005, Urine Protein Negative, Urine Glucose (UA) Negative, Urine Ketones Negative, Urine Blood 1+, Urine Nitrate Negative, Urine Bilirubin Negative, Urine Urobilinogen 0.2, Ur Leukocyte Esterase 2+ A, Urine RBC Occasional, Urine WBC 10-20, Ur Squamous Epith Cells Occasional, Urine Bacteria Trace 05/06/18 12:43: Urine Opiates Screen Negative, Urine Methadone Screen Negative, Ur Barbituates Screen Negative, Ur Phencyclidine Scrn Negative, Ur Amphetamines Screen Negative, U Benzodiazepines Scrn Negative, Urine Cocaine Screen Negative, U Marijuana (THC) Screen Negative Result diagrams: 05/06/18 12:40 05/06/18 12:40 Orders (Tests/Meds): ED MEDICATIONS Discontinued Medications Generic Name Dose Route Start Last Admin Trade Name Freq PRN Reason Stop Dose Admin Famotidine 20 mg 05/06/18 12:28 05/06/18 14:13 Pepcid 20mg/2ml Vial IV 05/06/18 12:29 20 mg ONCE ONE Administration Ioversol 75 ml 05/06/18 14:23 05/06/18 14:25 Rad-Optiray 350 100ml Vial IV 05/06/18 14:24 75 ml ONCE ONE Administration Ketorolac Tromethamine 30 mg 05/06/18 12:28 05/06/18 14:13 Toradol 30mg/Ml Vial IV 05/06/18 12:29 30 mg ONCE ONE Administration Promethazine HCl 12.5 mg 05/06/18 12:28 05/06/18 14:13 Phenergan 25mg/Ml 1ml Vial IV 05/06/18 12:29 12.5 mg ONCE ONE Administration Sodium Chloride 25 ml 05/06/18 12:28 05/06/18 14:13 Sod Chlor 0.9% 25ml Bag IV 05/06/18 12:29 25 ml ONCE ONE Administration Sodium Chloride 10 ml 05/06/18 14:23 05/06/18 14:25 Rad-Saline Flush 10ml Syringe IV 05/06/18 14:24 10 ml ONCE ONE Administration ORDERS Category Date Time Status Urine Culture Stat Micro 05/06/18 12:43 Received - CT Data CT Scan: Abdomen, Pelvis Time Received: 15:[address] Reviewed: Yes: I have viewed the radiologist's interpretation Preliminary Findings: Abnormal Findings Narrative: MPRESSION: 1. Gallstones again noted-within nondilated noninflamed appearing gallbladder . No biliary ductal dilatation. & No stones within the common duct evident by CT. 2.. Diffuse wall thickening urinary bladder. Warrants correlation with urinalysis. Could reflect cystitis 3. On today's study note slight increased fluid with scattered small air-fluid levels throughout small bowel.-Very nonspecific, & unimpressive but could reflect reflect Mild ileus, or early enteritis possibly Also upper normal low-density wall thickness seen throughout the colon nonspecific.. More likely reflecting some mild chronic changes and lack of distention. Less likely Early colitis.. Colonic diverticulosis most evident sigmoid colon. No diverticulitis - US Data US Images: Gallbladder ED US Reviewed: Yes: I have viewed radiologist's interpretation Findings Narrative: MPRESSION: ......... 1. Gallstones.. Borderline gallbladder wall thickening 2. Common duct normal. 3. Liver, pancreas, and right kidney otherwise unremarkable. Medical Decision Narrative: The patient's ultrasound was positive for gallbladder stones, common bile duct was upper limit of normal of 4.5 mm. I spoke with Dr. Alfredo who agreed to see her in consultation. I contacted Dr. Bass for admission. MPRESSION: 1. Gallstones again noted-within nondilated noninflamed appearing gallbladder . No biliary ductal dilatation. & No stones within the common duct evident by CT. 2.. Diffuse wall thickening urinary bladder. Warrants correlation with urinalysis. Could reflect cystitis 3. On today's study note slight increased fluid with scattered small air-fluid levels throughout small bowel.-Very nonspecific, & unimpressive but could reflect reflect Mild ileus, or early enteritis possibly Also upper normal low-density wall thickness seen throughout the colon nonspecific.. More likely reflecting some mild chronic changes and lack of distention. Less likely Early colitis.. Colonic diverticulosis most evident sigmoid colon. No diverticulitis Abdominal Pain HPI - General Stated Complaint: sick at stomach,weakness Time Seen by Provider: 05/06/18 12:21 - History of Present Illness HPI narrative: 57 years old white female status post appendectomy. For the past 3-week she has been experiencing right upper quadrant pain seen by her primary care physician underwent a CT scan with p.o. and IV contrast with the finding of enlarged gallbladder. She underwent a breath urea test that was negative for H. pylori. The patient is unable to tolerate food including broth with a loss of 8 pounds. The patient presents to the ED today with an ongoing right upper quadrant pain that is rated a 7/10 sharp/crampy radiating to the epigastric region with no hematemesis coffee-ground emesis melanotic stool or bleeding per rectum. The patient denies having dysuria hematuria or frequency. The patient is a status post pain stimulator placement on March [address] Mata. I was informed by her daughter was in the bedside that she continues a nonprescription pain medication MD complaint: abdominal pain Onset (ago): week(s) (3 weeks.) Location: RUQ Severity: moderate Severity scale (1-10): 7 Quality: cramping Radiation: epigastric Relieving factors: nothing Exacerbating factors: eating Associated symptoms: nausea - Related Data Home Medications Medication Instructions Recorded Confirmed Cyclobenzaprine HCl 10 mg PO NEEDED PRN 04/26/17 03/29/18 [Cyclobenzaprine 10mg Tab] Diclofenac Potassium [Diclofenac 50 mg PO DAILY 04/26/17 03/29/18 50mg Tab] Pregabalin [Lyrica 150mg Cap] 3 tab PO DAILY 04/26/17 03/29/18 Tramadol HCl [Ultram] 50 mg PO BID 04/26/17 03/29/18 clonazePAM [Klonopin 0.5mg tablet] 0.5 mg PO NEEDED PRN 04/26/17 03/29/18 bupropion HCl XL 300 mg 24 hr 300 mg PO DAILY 30 Days 06/11/17 03/29/18 tablet, extended release Loratadine [Allergy Relief] 10 mg PO ONCE 08/23/17 03/29/18 Allergies Allergy/AdvReac Type Severity Reaction Status Date / Time Penicillins [PENICILLINS] Allergy Unknown Verified 06/11/17 16:49 sulfamethoxazole AdvReac Verified 03/30/18 09:51 [From Bactrim] trimethoprim [From Bactrim] AdvReac Verified 03/30/18 09:51 [facility] History - Hepatitis A Screen Attestation statement:: This patient has been screened for Hepatitis A risk factors. I have reviewed the patient's past medical history: Yes Medical History: Reports:: Depression Denies:: Cancer, Diabetes Mellitus Type 1, Diabetes Mellitus Type 2, Internal Pacemaker, MRSA, Seizures Other Medical History: Reports: Arthritis, Fibromyalgia, Sinus Problems. Denies: Blood Transfusion Reaction Comment: Illnesses-chronic back pain, depression, neuropathy, cigarette smoking Laterality Cases: Bilateral: Tonsillectomy Other Surgeries: Yes: Appendectomy, Other (Dental extraction). No: Pacemaker Amputation: No Fractures: No Comment: Operations-appendectomy TNA, tooth extraction - Social History Smoking Status: Current every day smoker Tobacco Type: cigarettes # Packs/Day (cigarettes): 1 Alcohol Intake: never Occupational Status: disabled Housing: house Household Members: significant other - Psychiatric History Pschychiatric History:: Reports:: Depression Family Hx:: Cancer, Coronary Artery Disease, Diabetes, Thyroid Disorder ROS Obtained: Yes All systems reviewed & no additional complaints Physical Exam - General General appearance: alert, in no apparent distress - Head Head exam: atraumatic, normocephalic, normal inspection - Eye Eye exam: Present: normal appearance, PERRL, EOMI. Absent: scleral icterus, ny stagmus - ENT ENT exam: Present: normal exam, normal oropharynx, mucous membranes moist, TM's normal bilaterally, normal external ear exam - Neck Neck exam: Present: normal inspection, full ROM, trachea midline. Absent: t enderness, meningismus, lymphadenopathy - Chest Chest inspection: Present: normal inspection, symmetric chest wall rise. Absent: tenderness - Respiratory Respiratory exam: Present: normal lung sounds bilaterally. Absent: respiratory distress, wheezes - Cardiovascular Cardiovascular exam: Present: regular rate, normal rhythm, normal heart sounds. Absent: JVD - Abdominal Exam Abdominal exam: Present: soft, tenderness, normal bowel sounds, Segovia's sign. Absent: distention, guarding, rebound, rigidity, tenderness at McBurney's Point Abdominal tenderness: Present: RUQ - External exam: Present: normal external exam - Extremities Exam Extremities exam: Present: normal inspection, full ROM, normal capillary refill, other (Equal bilateral femoral pulse. ). Absent: tenderness, pedal edema, joint swelling, calf tenderness - Back Exam Back exam: Present: normal inspection, other (We will healed incision for back pain stimulator on the left lumbar region. ). Absent: full ROM, tenderness, CVA tenderness (R), CVA tenderness (L), paraspinal tenderness, vertebral tenderness - Neurological Exam Neurological exam: Present: alert, oriented X3, CN II-XII intact, motor sensory deficit, reflexes normal - Psychiatric Psychiatric exam: Present: normal affect, normal mood - Skin Skin exam: Present: warm, dry, intact, normal color - Lymphatic Lymphatic Findings: no adenopathy
[2018-05-06 12:56] LABS: Microscopic, Urine URINE MICROSCOPIC (MICROSCOPIC)
[2018-05-06 13:04] LABS: Appearance,Urine CLEAR (Clear); Bilirubin,Urine Negative (Negative); Blood, Urine 1+ (Negative); Color,Urine YELLOW (Yellow); Glucose,Urine (UA) Negative (Negative); Ketones,Urine Negative (Negative); Leukocyte Esterase,Urine 2+ (Negative); PH,Urine 6.5 (5.0-8.5); Protein,Urine Negative (Negative); Specific Gravity, Urine <= 1.005 (1.005-1.030); Urobilinogen,Urine 0.2 EU/dl (0.2)
[2018-05-06 13:08] LABS: Basophils # 0.1 K/mm3 (0-0.2); Basophils % 0.7 % (0.1-2.0); Eosinophils # 0.2 K/mm3 (0.0-0.4); Eosinophils % 2.4 % (0.1-12.0); Hematocrit 40.4 % (37.0-47.0); Hemoglobin 13.6 g/dL (12.2-16.2); Lymphocytes # 2.1 K/mm3 (0.7-4.5); Lymphocytes % 28.2 % (10-50); Mean Corpuscular HGB Conc 33.6 g/dL (31.8-35.4); Mean Corpuscular Hemoglobin 33.1 pg (27.0-31.2); Mean Corpuscular Volume 98.3 fl (81-99); Mean Platelet Volume 8.3 fl (7.4-10.4); Monocytes # 0.3 K/mm3 (0.1-1.0); Monocytes % 4.2 % (1.7-9.3); Neutrophils # 4.8 K/mm3 (1.8-7.8); Neutrophils % 64.4 % (37.0-80.0); Platelet Count 273 K/mm3 (142-424); Red Blood Count 4.11 M/mm3 (4.20-5.40); Red Cell Distribution Width 13.6 % (11.5-17.5); White Blood Count 7.5 K/mm3 (4.8-10.8)
[2018-05-06 13:12] LABS: Bacteria,Urine Trace /lpf; RBC,Urine Occasional #/hpf (0-3); Squamous Epithelial Cell,Urine Occasional #/hpf (0-5)
[2018-05-06 13:13] LABS: Amphetamine/Metha Screen,Urine Negative ng/mL (<1000); Barbiturates Screen,Urine Negative ng/mL (<200); Benzodiazepines Screen,Urine Negative ng/mL (<200); Cannabinoid Screen,Urine Negative ng/mL (<50); Cocaine Screen,Urine Negative ng/mL (<300); Methadone Screen,Urine Negative ng/mL (<300); Opiate Screen,Urine Negative ng/mL (<300); Phencyclidine Screen,Urine Negative ng/mL (<25)
[2018-05-06 13:32] LABS: Alanine Aminotransferase 18 U/L (12-78); Albumin Level 3.4 gm/dL (3.4-5.0); Albumin/Globulin Ratio 0.9 (1.1-1.8); Alkaline Phosphatase 84 U/L (46-116); Anion Gap 12.5 mEq/L (5-15); Aspartate Amino Transferase 8 U/L (15-37); Bilirubin,Total 0.3 mg/dL (0.2-1.0); Blood Urea Nitrogen 6 mg/dL (7-18); Calcium 8.9 mg/dL (8.5-10.1); Carbon Dioxide 29 mmol/L (21.0-32.0); Chloride 107 mmol/L (98-107); Globulin 3.8 gm/dl (1.3-3.2); Glucose 90 mg/dL (74-106); Lipase 119 u/L (73-393); Potassium 3.5 mmoL/L (3.5-5.1); Sodium 145 mmol/L (136-145); Total Protein,Serum 7.2 gm/dL (6.4-8.2)
--- NOTE | 2018-05-06 16:52 | History & Physical Report ---
*Admission Date: 05/06/18 *Chief complaint: Abdominal pain *History of present illness: This 57-year-old white female was admitted to the emergency room with abdominal pain. she had a CT scan that revealed gallstones. She has had GI distress for 3 weeks. She has had pain and nausea. She has not had vomiting. She is a patient of NATALIE Goodwin. She was seen in the emergency room at [facility] and admitted. Dr. ahuja spoke to Dr. Alfredo who will be seeing her in consultation for possible cholecystectomy. Significant in the family history is gallbladder disease in her father. Also significant in the past history is chronic back pain for which she has received a spinal cord stimulator that was placed March 29, [address] Mata at [facility]. [facility] History Medical History: Reports:: Depression (Has received bupropion) Denies:: Cancer, Diabetes Mellitus Type 1, Diabetes Mellitus Type 2, Internal Pacemaker, MRSA, Seizures *Have you ever received a pneumonia vaccine?: No *Have you received a flu vaccine this season?: Yes ( Current flu shot. Hepatitis A vacc. No pneumonia vacc.) Other Medical History: Reports: Arthritis, Fibromyalgia, Sinus Problems. Denies: Blood Transfusion Reaction Comment:: No travel outside [facility] Laterality Cases: Bilateral: Tonsillectomy, Other (Dental surgery. Nasal surgery) Other Surgeries: Yes: Appendectomy, Other (Dental extraction). No: Pacemaker Amputation: No Fractures: No - *Social History Educational Level: Completed High School Smoking Status: Current every day smoker Tobacco Type: cigarettes # Packs/Day (cigarettes): 1 Alcohol Intake: never Alcohol Intake Frequency:: holidays/special occasions only *Occupational Status:: disabled Housing: house Household Members: significant other *Travel in the last 8 weeks: None - Psychiatric History Expresses thoughts of harming self/others: None Suicide Plan Description: No Plan Pschychiatric History:: Reports:: Depression Family Hx:: Cancer, Coronary Artery Disease, Diabetes, Thyroid Disorder Comment: Her father had gallbladder disease. Her mother was diabetic and had heart disease lung disease and high blood pressure. Patient has no siblings. She has 1 son and 1 daughter and 1 stepdaughter. Her stepdaughter has 3 children. : 2 Para: 2 LMP comments: post menopausal Review of Systems - Constitutional Denies body ache(s), Denies chills - Eyes Denies loss of vision - *Cardiovascular Denies chest pain, Denies chest pain with activity, Denies shortness of breath, Denies irregular heart rhythm - *Respiratory Denies chest congestion - *Gastrointestinal Reports abdominal pain, Reports cramping, Reports loose stools (After her first CT scan) - *Genitourinary Denies abnormal vaginal bleeding - *Musculoskeletal Reports back pain, Denies joint pain - Integumentary/Breasts Denies bleeding lesions, Denies unusual bruising - *Neurologic Denies memory loss, Denies other visual disturbances, Denies seizure-like activity - Psychiatric Reports depression - Hematologic/Lymphatic Denies easy bleeding Meds Home Medications Medication Instructions Recorded Confirmed Type Cyclobenzaprine HCl 10 mg PO NEEDED PRN 04/26/17 03/29/18 History [Cyclobenzaprine 10mg Tab] Diclofenac Potassium [Diclofenac 50 mg PO DAILY 04/26/17 03/29/18 History 50mg Tab] Pregabalin [Lyrica 150mg Cap] 3 tab PO DAILY 04/26/17 03/29/18 History Tramadol HCl [Ultram] 50 mg PO BID 04/26/17 03/29/18 History clonazePAM [Klonopin 0.5mg tablet] 0.5 mg PO NEEDED PRN 04/26/17 03/29/18 History bupropion HCl XL 300 mg 24 hr 300 mg PO DAILY 30 Days 06/11/17 03/29/18 History tablet, extended release Loratadine [Allergy Relief] 10 mg PO ONCE 08/23/17 03/29/18 History Allergies Allergy/AdvReac Type Severity Reaction Status Date / Time Penicillins [PENICILLINS] Allergy Unknown Verified 06/11/17 16:49 sulfamethoxazole AdvReac Verified 03/30/18 09:51 [From Bactrim] trimethoprim [From Bactrim] AdvReac Verified 03/30/18 09:51 Exam Vital signs and Labs for Last 24 Hours: Temp Pulse Resp BP Pulse Ox 98.3 F 76 16 103/68 L 95 05/06/18 16:25 05/06/18 16:25 05/06/18 16:25 05/06/18 16:25 05/06/18 16:25 Laboratory Results - last 24 hr 05/06/18 12:40: WBC 7.5, RBC 4.11 L, Hgb 13.6, Hct 40.4, MCV 98.3, MCH 33.1 H, MCHC 33.6, RDW 13.6, Plt Count 273, MPV 8.3, Neut % (Auto) 64.4, Lymph % (Auto) 28.2, [place] % (Auto) 4.2, Eos % (Auto) 2.4, Baso % (Auto) 0.7, Neut # (Auto) 4.8, Lymph # (Auto) 2.1, [place] # (Auto) 0.3, Eos # (Auto) 0.2, Baso # (Auto) 0.1 05/06/18 12:40: Sodium 145, Potassium 3.5, Chloride 107, Carbon Dioxide 29, Anion Gap 12.5, BUN 6 L, Creatinine 0.75, Estimated Creat Clear 73, Estimated GFR 80, Est GFR ( Amer) 97, Glucose 90, Calcium 8.9, Total Bilirubin 0.3, AST 8 L, ALT 18, Alkaline Phosphatase 84, Troponin I < 0.02, Total Protein 7.2, Albumin 3.4, Globulin 3.8 H, Albumin/Globulin Ratio 0.9 L, Lipase 119 05/06/18 12:43: Urine Color Yellow, Urine Appearance Clear, Urine pH 6.5, Ur Specific [place] <= 1.005, Urine Protein Negative, Urine Glucose (UA) Negative, Urine Ketones Negative, Urine Blood 1+, Urine Nitrate Negative, Urine Bilirubin Negative, Urine Urobilinogen 0.2, Ur Leukocyte Esterase 2+ A, Urine RBC Occasional, Urine WBC 10-20, Ur Squamous Epith Cells Occasional, Urine Bacteria Trace 05/06/18 12:43: Urine Opiates Screen Negative, Urine Methadone Screen Negative, Ur Barbituates Screen Negative, Ur Phencyclidine Scrn Negative, Ur Amphetamines Screen Negative, U Benzodiazepines Scrn Negative, Urine Cocaine Screen Negative, U Marijuana (THC) Screen Negative I & O for Last 24 hours: Intake & Output 05/04/18 05/05/18 05/06/18 05/07/18 11:59 11:59 11:59 12:59 Weight 133 lb 4.989 oz - Constitutional no acute distress - *Routine HEENT Exam Head: Present: normocephalic Eye: Present: PERRL ENT: Present: mucous membranes dry, external ear normal. Absent: dentition normal (Edentulous at maxilla) - *Routine Neck Exam Present: full ROM - Routine Chest/Breast/Axilla Exam Chest wall: Absent: tenderness - *Routine Respiratory Exam Present: decreased breath sounds, rales (Fine rales at the left base more than the right) - *Routine Cardiovascular Exam Present: RRR - *Routine Abdominal Exam Present: soft, tenderness (Right upper quadrant) - *Routine Rectal Exam Comments: Not performed - *Routine Extremities Exam Absent: edema - *Routine Skin Exam Present: intact, dry - *Routine Neurological Exam Present: alert, oriented X3. Absent: motor deficit, altered mental status Assessment and Plan (1) Acute cholecystitis Current visit: Yes Status: Acute Category: Medical Code(s): K81.0 - Acute cholecystitis (2) Ileus, gallstone Current visit: Yes Status: Acute Category: Medical Code(s): K56.3 - Gallstone ileus (3) Cholelithiasis Current visit: Yes Status: Acute Category: Medical Code(s): K80.20 - Calculus of gallbladder without cholecystitis without obstruction (4) Tobacco abuse Current visit: Yes Status: Acute Category: Medical Code(s): Z72.0 - Tobacco use (5) Lumbosacral disc disease Current visit: Yes Status: Acute Category: Medical Code(s): M51.9 - Unspecified thoracic, thoracolumbar and lumbosacral intervertebral disc disorder - Assessment and plan all Dx Assessment and Plan for all problems:: See orders. Surgical consultation has been requested.
--- NOTE | 2018-05-06 18:57 | History & Physical Report ---
HPI HPI: Ms. Foreman is a 57-year-old female that presents to [facility] with abdominal pain. Secondary onset of nausea and emesis. Difficulty with oral intake. Patient reports that she has not felt well for approximately 3 weeks. Has had nausea with oral intake. Occasional vomiting. Pain has been located in the right midabdomen without radiation. No alleviating or aggravating factors. Presents without prior episode. Most recently had spinal cord stimulator placed on March 29, 2018. No other significant events in the past 3-6 months. Presented to [facility] based on persistent pain. No fever or chills. No weight loss. [facility] History I have reviewed the patient's past medical history: Yes Medical History: Reports:: Depression Denies:: Cancer, Diabetes Mellitus Type 1, Diabetes Mellitus Type 2, Internal Pacemaker, MRSA, Seizures *Have you ever received a pneumonia vaccine?: No *Have you received a flu vaccine this season?: Yes ( Current flu shot. Hepatitis A vacc. No pneumonia vacc.) Other Medical History: Reports: Arthritis, Fibromyalgia, Sinus Problems. Denies: Blood Transfusion Reaction Laterality Cases: Bilateral: Tonsillectomy, Other (Dental surgery. Nasal surgery) Other Surgeries: Yes: Appendectomy, Other (Dental extraction). No: Pacemaker Amputation: No Fractures: No - *Social History Educational Level: Completed High School Smoking Status: Current every day smoker Tobacco Type: cigarettes # Packs/Day (cigarettes): 1 Alcohol Intake: never Alcohol Intake Frequency:: holidays/special occasions only *Occupational Status:: disabled Housing: house Household Members: significant other *Travel in the last 8 weeks: None - Psychiatric History Expresses thoughts of harming self/others: None Suicide Plan Description: No Plan Pschychiatric History:: Reports:: Depression Family Hx:: Cancer, Coronary Artery Disease, Diabetes, Thyroid Disorder Para: 2 LMP comments: post menopausal Review of Systems - Review of Systems Review of systems:: pertinent systems reviewed and negative unless documented below - *Neurologic Denies loss of vision, Denies memory loss, Denies other visual disturbances, Denies seizure-like activity Meds Home Medications Medication Instructions Recorded Confirmed Type Cyclobenzaprine HCl 10 mg PO NEEDED PRN 04/26/17 05/06/18 History [Cyclobenzaprine 10mg Tab] Diclofenac Potassium [Diclofenac 50 mg PO DAILY 04/26/17 05/06/18 History 50mg Tab] Pregabalin [Lyrica 150mg Cap] 3 tab PO DAILY 04/26/17 05/06/18 History Tramadol HCl [Ultram] 50 mg PO BID 04/26/17 05/06/18 History clonazePAM [Klonopin 0.5mg tablet] 0.5 mg PO NEEDED PRN 04/26/17 05/06/18 History bupropion HCl XL 300 mg 24 hr 300 mg PO DAILY 30 Days 06/11/17 05/06/18 History tablet, extended release Loratadine [Allergy Relief] 10 mg PO ONCE 08/23/17 05/06/18 History Allergies Allergy/AdvReac Type Severity Reaction Status Date / Time Penicillins [PENICILLINS] Allergy Unknown Verified 06/11/17 16:49 sulfamethoxazole AdvReac Verified 03/30/18 09:51 [From Bactrim] trimethoprim [From Bactrim] AdvReac Verified 03/30/18 09:51 Exam Vital signs and Labs for Last 24 Hours: Temp Pulse Resp BP Pulse Ox 98.3 F 76 16 103/68 L 95 05/06/18 16:25 05/06/18 16:25 05/06/18 16:25 05/06/18 16:25 05/06/18 16:25 Laboratory Results - last 24 hr 05/06/18 12:40: WBC 7.5, RBC 4.11 L, Hgb 13.6, Hct 40.4, MCV 98.3, MCH 33.1 H, MCHC 33.6, RDW 13.6, Plt Count 273, MPV 8.3, Neut % (Auto) 64.4, Lymph % (Auto) 28.2, [place] % (Auto) 4.2, Eos % (Auto) 2.4, Baso % (Auto) 0.7, Neut # (Auto) 4.8, Lymph # (Auto) 2.1, [place] # (Auto) 0.3, Eos # (Auto) 0.2, Baso # (Auto) 0.1 05/06/18 12:40: Sodium 145, Potassium 3.5, Chloride 107, Carbon Dioxide 29, Anion Gap 12.5, BUN 6 L, Creatinine 0.75, Estimated Creat Clear 73, Estimated GFR 80, Est GFR ( Amer) 97, Glucose 90, Calcium 8.9, Total Bilirubin 0.3, AST 8 L, ALT 18, Alkaline Phosphatase 84, Troponin I < 0.02, Total Protein 7.2, Albumin 3.4, Globulin 3.8 H, Albumin/Globulin Ratio 0.9 L, Lipase 119 05/06/18 12:43: Urine Color Yellow, Urine Appearance Clear, Urine pH 6.5, Ur Specific [place] <= 1.005, Urine Protein Negative, Urine Glucose (UA) Negative, Urine Ketones Negative, Urine Blood 1+, Urine Nitrate Negative, Urine Bilirubin Negative, Urine Urobilinogen 0.2, Ur Leukocyte Esterase 2+ A, Urine RBC Occasional, Urine WBC 10-20, Ur Squamous Epith Cells Occasional, Urine Bacteria Trace 05/06/18 12:43: Urine Opiates Screen Negative, Urine Methadone Screen Negative, Ur Barbituates Screen Negative, Ur Phencyclidine Scrn Negative, Ur Amphetamines Screen Negative, U Benzodiazepines Scrn Negative, Urine Cocaine Screen Negative, U Marijuana (THC) Screen Negative I & O for Last 24 hours: Intake & Output 05/04/18 05/05/18 05/06/18 05/07/18 11:59 11:59 11:59 12:59 Weight 60.469 kg - Constitutional no acute distress, average body habitus - *Routine Neck Exam Present: supple - *Routine Respiratory Exam Present: CTA bilaterally - *Routine Cardiovascular Exam Present: RRR - *Routine Abdominal Exam Present: soft, tenderness. Absent: distended Comments: Tender right mid abdomen. No peritonitis. No guarding. Results - Results Lab Results Last 24 Hours:: Laboratory Results - last 24 hr 05/06/18 12:40: WBC 7.5, RBC 4.11 L, Hgb 13.6, Hct 40.4, MCV 98.3, MCH 33.1 H, MCHC 33.6, RDW 13.6, Plt Count 273, MPV 8.3, Neut % (Auto) 64.4, Lymph % (Auto) 28.2, [place] % (Auto) 4.2, Eos % (Auto) 2.4, Baso % (Auto) 0.7, Neut # (Auto) 4.8, Lymph # (Auto) 2.1, [place] # (Auto) 0.3, Eos # (Auto) 0.2, Baso # (Auto) 0.1 05/06/18 12:40: Sodium 145, Potassium 3.5, Chloride 107, Carbon Dioxide 29, Anion Gap 12.5, BUN 6 L, Creatinine 0.75, Estimated Creat Clear 73, Estimated GFR 80, Est GFR ( Amer) 97, Glucose 90, Calcium 8.9, Total Bilirubin 0.3, AST 8 L, ALT 18, Alkaline Phosphatase 84, Troponin I < 0.02, Total Protein 7.2, Albumin 3.4, Globulin 3.8 H, Albumin/Globulin Ratio 0.9 L, Lipase 119 05/06/18 12:43: Urine Color Yellow, Urine Appearance Clear, Urine pH 6.5, Ur Specific [place] <= 1.005, Urine Protein Negative, Urine Glucose (UA) Negative, Urine Ketones Negative, Urine Blood 1+, Urine Nitrate Negative, Urine Bilirubin Negative, Urine Urobilinogen 0.2, Ur Leukocyte Esterase 2+ A, Urine RBC Occasional, Urine WBC 10-20, Ur Squamous Epith Cells Occasional, Urine Bacteria Trace 05/06/18 12:43: Urine Opiates Screen Negative, Urine Methadone Screen Negative, Ur Barbituates Screen Negative, Ur Phencyclidine Scrn Negative, Ur Amphetamines Screen Negative, U Benzodiazepines Scrn Negative, Urine Cocaine Screen Negative, U Marijuana (THC) Screen Negative CT scan - abdomen: report reviewed, image reviewed CT scan - pelvis: report reviewed, image reviewed US - abdomen: report reviewed, image reviewed Assessment and Plan (1) Acute cholecystitis Current visit: Yes Status: Acute Category: Medical Code(s): K81.0 - Acute cholecystitis (2) Ileus, gallstone Current visit: Yes Status: Acute Category: Medical Code(s): K56.3 - Gallstone ileus (3) Cholelithiasis Current visit: Yes Status: Acute Category: Medical Code(s): K80.20 - Calculus of gallbladder without cholecystitis without obstruction (4) Tobacco abuse Current visit: Yes Status: Acute Category: Medical Code(s): Z72.0 - Tobacco use (5) Lumbosacral disc disease Current visit: Yes Status: Acute Category: Medical Code(s): M51.9 - Unspecified thoracic, thoracolumbar and lumbosacral intervertebral disc disorder - Assessment and plan all Dx Assessment and Plan for all problems:: Ms. Foreman presents with right mid abdominal pain and CT/ultrasound findings consistent with gallstones. No gallbladder wall thickening. No pericholecystic fluid. Gallbladder does not appear inflamed. Multiple small stones are noted without ductal dilation. Pain has been persistent for over 3 weeks. Associated with nausea and occasional emesis. Patient reports that she was evaluated for peptic ulcer disease earlier this year; reportedly normal. Findings are not consistent with acute cholecystitis. WBC normal. LFTs normal. Lipase normal. Perhaps has symptomatic cholelithiasis. Clinical abdominal examination without significant abnormality although mild tenderness is noted in the right upper quadrant. Recommend brief office observation with attempt at oral diet. IV fluids. Pain control. If pain improves and diet is tolerated, plan for 23-hour observation and follow-up as outpatient. If pain is precipitated with oral intake or not well controlled with current medication regimen, continue inpatient admission and proceed with cholecystectomy on May 08, 2018. HIDA scan may be requested, although low utility in consideration of clinical history and findings of gallstones on imaging.
[2018-05-07 06:13] LABS: Basophils # 0.1 K/mm3 (0-0.2); Basophils % 0.8 % (0.1-2.0); Eosinophils # 0.2 K/mm3 (0.0-0.4); Hematocrit 34.3 % (37.0-47.0); Lymphocytes # 2.6 K/mm3 (0.7-4.5); Lymphocytes % 48.2 % (10-50); Mean Corpuscular HGB Conc 33.2 g/dL (31.8-35.4); Mean Corpuscular Hemoglobin 33.1 pg (27.0-31.2); Mean Corpuscular Volume 99.9 fl (81-99); Mean Platelet Volume 8.5 fl (7.4-10.4); Monocytes # 0.3 K/mm3 (0.1-1.0); Monocytes % 5.4 % (1.7-9.3); Neutrophils # 2.3 K/mm3 (1.8-7.8); Neutrophils % 41.6 % (37.0-80.0); Platelet Count 226 K/mm3 (142-424); Red Blood Count 3.44 M/mm3 (4.20-5.40); Red Cell Distribution Width 13.7 % (11.5-17.5); White Blood Count 5.4 K/mm3 (4.8-10.8)
[2018-05-07 06:24] LABS: Hemoglobin 11.4 g/dL (12.2-16.2)
[2018-05-07 06:25] LABS: Anion Gap 10.5 mEq/L (5-15); Calcium 8.3 mg/dL (8.5-10.1); Potassium 3.5 mmoL/L (3.5-5.1)
--- NOTE | 2018-05-07 11:13 | Progress Note ---
Subjective Narrative: Ms. Foreman is a 57-year-old female admitted for symptomatic cholelithiasis. Attempted diet last evening. Followed by nausea. Continued pain this morning. Nontoxic. Nonseptic. No emesis over the past 24 hours. Laboratory evaluation today shows continued normal WBC. Mild anemia is noted; unexplained. Exam Vital signs and Labs for Last 24 Hours: Temp Pulse Resp BP Pulse Ox 97.8 F 62 18 83/42 L 94 L 05/07/18 08:00 05/07/18 08:00 05/07/18 08:00 05/07/18 08:00 05/07/18 08:00 Laboratory Results - last 24 hr 05/06/18 12:40: WBC 7.5, RBC 4.11 L, Hgb 13.6, Hct 40.4, MCV 98.3, MCH 33.1 H, MCHC 33.6, RDW 13.6, Plt Count 273, MPV 8.3, Neut % (Auto) 64.4, Lymph % (Auto) 28.2, [place] % (Auto) 4.2, Eos % (Auto) 2.4, Baso % (Auto) 0.7, Neut # (Auto) 4.8, Lymph # (Auto) 2.1, [place] # (Auto) 0.3, Eos # (Auto) 0.2, Baso # (Auto) 0.1 05/06/18 12:40: Sodium 145, Potassium 3.5, Chloride 107, Carbon Dioxide 29, Anion Gap 12.5, BUN 6 L, Creatinine 0.75, Estimated Creat Clear 73, Estimated GFR 80, Est GFR ( Amer) 97, Glucose 90, Calcium 8.9, Total Bilirubin 0.3, AST 8 L, ALT 18, Alkaline Phosphatase 84, Troponin I < 0.02, Total Protein 7.2, Albumin 3.4, Globulin 3.8 H, Albumin/Globulin Ratio 0.9 L, Lipase 119 05/06/18 12:43: Urine Color Yellow, Urine Appearance Clear, Urine pH 6.5, Ur Specific [place] <= 1.005, Urine Protein Negative, Urine Glucose (UA) Negative, Urine Ketones Negative, Urine Blood 1+, Urine Nitrate Negative, Urine Bilirubin Negative, Urine Urobilinogen 0.2, Ur Leukocyte Esterase 2+ A, Urine RBC Occasional, Urine WBC 10-20, Ur Squamous Epith Cells Occasional, Urine Bacteria Trace 05/06/18 12:43: Urine Opiates Screen Negative, Urine Methadone Screen Negative, Ur Barbituates Screen Negative, Ur Phencyclidine Scrn Negative, Ur Amphetamines Screen Negative, U Benzodiazepines Scrn Negative, Urine Cocaine Screen Negative, U Marijuana (THC) Screen Negative 05/06/18 18:40: Lactate 0.6 05/07/18 05:50: WBC 5.4 D, RBC 3.44 L, Hgb 11.4 L D, Hct 34.3 L, MCV 99.9 H, MCH 33.1 H, MCHC 33.2, RDW 13.7, Plt Count 226, MPV 8.5, Neut % (Auto) 41.6, Lymph % (Auto) 48.2, [place] % (Auto) 5.4, Eos % (Auto) 4.0, Baso % (Auto) 0.8, Neut # (Auto) 2.3, Lymph # (Auto) 2.6, [place] # (Auto) 0.3, Eos # (Auto) 0.2, Baso # (Auto) 0.1 05/07/18 05:50: Sodium 144, Potassium 3.5, Chloride 107, Carbon Dioxide 30, Anion Gap 10.5, BUN 10 D, Creatinine 0.87, Estimated Creat Clear 70, Estimated GFR 68, Est GFR ( Amer) 82, Glucose 110 H D, Calcium 8.3 L I & O for Last 24 hours: Intake & Output 05/04/18 05/05/18 05/06/18 05/07/18 11:59 11:59 11:59 12:59 Intake Total 580 / 580 Balance 580 / 580 Weight 60.469 kg - Constitutional Comments: No acute distress. Nontoxic. Nonseptic. - *Routine Abdominal Exam Comments: Soft. Nondistended. Tender right upper quadrant. Progress Note: A&P (1) Acute cholecystitis Status: Acute Current Visit: Yes (2) Ileus, gallstone Status: Acute Current Visit: Yes (3) Cholelithiasis Status: Acute Current Visit: Yes (4) Tobacco abuse Status: Acute Current Visit: Yes (5) Lumbosacral disc disease Status: Acute Current Visit: Yes Assessment and Plan for All Diagnoses:: Symptomatic cholelithiasis. Gallstone(s) noted on CT imaging and ultrasound. Attempted diet was relatively unsuccessful. Continued pain. Reduce diet to clear liquids only today. Continue antibiotics; prophylactic. Endoscopy and HIDA scan considered though thought to be of low utility at this point with assistance of right upper quadrant abdominal pain and clinical history. NPO after midnight.
--- NOTE | 2018-05-07 14:15 | Pharmacy Consult Notes ---
[facility] Pharmacy VTE Monitoring - Patient Demographics Admission date: 05/07/18 Report Date: 05/07/18 Time: 14:15 Allergies/Adverse Reactions: Patient Allergies Penicillins [PENICILLINS] Allergy (Unknown, Verified 06/11/17 16:49) sulfamethoxazole [From Bactrim] Adverse Reaction (Verified 03/30/18 09:51) trimethoprim [From Bactrim] Adverse Reaction (Verified 03/30/18 09:51) Height: 1.57 m Weight: 60.469 kg Patient Problems: Current Active Problems Chronic pain syndrome (Acute) UTI (urinary tract infection) (Acute) Cholelithiasis (Acute) Acute cholecystitis (Acute) Ileus, gallstone (Acute) Lumbosacral disc disease (Acute) Tobacco abuse (Acute) - VTE Risk Labs: VTE Related Lab Results Hgb 11.4 g/dL (12.2-16.2) L D 05/07/18 05:50 Hct 34.3 % (37.0-47.0) L 05/07/18 05:50 Plt Count 226 K/mm3 (142-424) 05/07/18 05:50 BUN 10 mg/dL (7-18) D 05/07/18 05:50 Creatinine 0.87 mg/dL (0.55-1.02) 05/07/18 05:50 Estimated Creat Clear 70 mL/min (50-200) 05/07/18 05:50 VTE Score: 1 - Prophylaxis Types of VTE Prophylaxis: TEDS Knee High (BRITTANY HOSE ORDER PLACED)
--- NOTE | 2018-05-08 08:06 | Progress Note ---
Subjective Narrative: Patient is a 57-year-old white female from [place]. She has chronic pain and had a pain pump placed at the end of February. She states that for about 3 weeks she has been "sick". She describes ongoing nausea. She has had some general abdominal bloating. She denies any focal significant abdominal pain but some generalized abdominal discomfort. She was undergoing outpatient workup and had a CT scan as an outpatient last week. She presented to the emergency department this weekend due to ongoing symptoms and was admitted to the general surgical service. She had a gallbladder ultrasound done yesterday which revealed gallstones without any sonographic evidence of acute cholecystitis. Patient states that she still feels nauseated and bloated. She has upper abdominal pain. Exam Vital signs and Labs for Last 24 Hours: Temp Pulse Resp BP Pulse Ox 97.9 F 73 19 98/52 L 90 L 05/08/18 04:00 05/08/18 04:00 05/08/18 04:00 05/08/18 04:00 05/08/18 04:00 I & O for Last 24 hours: Intake & Output 05/05/18 05/06/18 05/07/18 05/08/18 10:59 10:59 11:59 11:59 Intake Total 1976 Balance 1976 Weight 133 lb 4.989 oz Microbiology Reports for the Last 24 Hours: Microbiology 05/06/18 12:43 Urine,Clean Catch Urine Culture - Final Multiple organisms, suggests contamination. - Constitutional no acute distress - *Routine Abdominal Exam Present: soft Comments: Minimal abdominal discomfort Progress Note: A&P (1) Acute cholecystitis Status: Acute Current Visit: Yes (2) Ileus, gallstone Status: Acute Current Visit: Yes (3) Cholelithiasis Status: Acute Current Visit: Yes (4) Tobacco abuse Status: Acute Current Visit: Yes (5) Lumbosacral disc disease Status: Acute Current Visit: Yes Assessment and Plan for All Diagnoses:: Probable symptomatic gallstones with cholecystitis refractory to outpatient management. Likely will need cholecystectomy during this admission.
[2018-05-08 09:19] LABS: Albumin Level 2.6 gm/dL (3.4-5.0); Albumin/Globulin Ratio 0.9 (1.1-1.8); Anion Gap 9.6 mEq/L (5-15); Bilirubin,Total 0.2 mg/dL (0.2-1.0); Calcium 7.9 mg/dL (8.5-10.1); Globulin 2.8 gm/dl (1.3-3.2); Potassium 3.6 mmoL/L (3.5-5.1); Total Protein,Serum 5.4 gm/dL (6.4-8.2)
--- NOTE | 2018-05-08 09:38 | Progress Note ---
Internal Medicine - PN: Subj Interval history: Patient states she just wants her gallbladder out. She is only been able to tolerate liquids. She has persistent nausea. She has not vomited. Bowels moved a few days ago. She would like something for her hemorrhoids. She has been seen by Dr. Mcclelland with plans for cholecystectomy Exam Vital signs and Labs for Last 24 Hours: Temp Pulse Resp BP Pulse Ox 98.5 F 79 18 86/50 L 90 L 05/08/18 08:00 05/08/18 08:00 05/08/18 08:00 05/08/18 08:00 05/08/18 08:00 Laboratory Results - last 24 hr 05/08/18 08:58: Sodium 147 H, Potassium 3.6, Chloride 112 H, Carbon Dioxide 29, Anion Gap 9.6, BUN 7 D, Creatinine 0.73, Estimated Creat Clear 83, Estimated GFR 83, Est GFR ( Amer) 100 D, Glucose 86, Calcium 7.9 L, Total Bilirubin 0.2, AST 10 L, ALT 13 D, Alkaline Phosphatase 60, Total Protein 5.4 L , Albumin 2.6 L, Globulin 2.8, Albumin/Globulin Ratio 0.9 L, Amylase 35 I & O for Last 24 hours: Intake & Output 05/05/18 05/06/18 05/07/18 05/08/18 10:59 10:59 11:59 11:59 Intake Total 2076 Balance 2076 Weight 133 lb 4.989 oz Microbiology Reports for the Last 24 Hours: Microbiology 05/06/18 12:43 Urine,Clean Catch Urine Culture - Final Multiple organisms, suggests contamination. - Constitutional no acute distress - *Routine Respiratory Exam Present: CTA bilaterally (Anteriorly and posteriorly) - *Routine Cardiovascular Exam Present: RRR - *Routine Abdominal Exam Present: soft, normoactive bowel sounds, tenderness (Positive Segovia's). Absent: distended - *Routine Extremities Exam Absent: edema, calf tenderness - *Routine Neurological Exam Present: alert, oriented X3 Assessment and Plan (1) Acute cholecystitis Current visit: Yes Status: Acute Category: Medical Code(s): K81.0 - Acute cholecystitis (2) Ileus, gallstone Current visit: Yes Status: Acute Category: Medical Code(s): K56.3 - Gallstone ileus (3) Cholelithiasis Current visit: Yes Status: Acute Category: Medical Code(s): K80.20 - Calculus of gallbladder without cholecystitis without obstruction (4) Tobacco abuse Current visit: Yes Status: Acute Category: Medical Code(s): Z72.0 - Tobacco use (5) Lumbosacral disc disease Current visit: Yes Status: Acute Category: Medical Code(s): M51.9 - Unspecified thoracic, thoracolumbar and lumbosacral intervertebral disc disorder - Assessment and plan all Dx Assessment and Plan for all problems:: To have cholecystectomy.
--- NOTE | 2018-05-08 10:20 | Progress Note ---
[facility] Anesthesia Checklist - Patient Identification Patient Identification: Arm Band - Structural Data Admitted From: Inpatient Planned Operative Procedure/s: lap buddy Consent for Planned Operative Procedure(s) Verified: Yes Verified Documents: Surgical Consent, History and Physical - NPO Status Verified Time NPO: 00:00 - Additional verifications Anesthesia Reactions: No - Airway Assessment C-Spine Mobility Assessed: Yes (mp2) TMJ Mobility Assessed: Yes Dentition: Poor Dentition (very few teeth left, only on bottom. Dental risks explained. Pt agrees) - Neurological Assessment Level of Consciousness: Awake, Alert - Anesthesia Plan Anesthesia Risk discussed: Yes Anesthesia Plan: Verified ASA Class: II Anesthesia Type: General [facility] History I have reviewed the patient's past medical history: Yes Medical History: Reports:: Anxiety, Depression, Gastroesophageal Reflux Disease(GERD) Denies:: Cancer, Diabetes Mellitus Type 1, Diabetes Mellitus Type 2, Internal Pacemaker, MRSA, Seizures *Have you ever received a pneumonia vaccine?: No *Have you received a flu vaccine this season?: Yes ( Current flu shot. Hepatitis A vacc. No pneumonia vacc.) Other Medical History: Reports: Arthritis, Fibromyalgia, Sinus Problems, Other (questionable JODI). Denies: Blood Transfusion Reaction Laterality Cases: Bilateral: Tonsillectomy, Other (Dental surgery. Nasal surgery) Other Surgeries: Yes: Appendectomy, Other (Dental extraction). No: Pacemaker Amputation: No Fractures: No - *Social History Educational Level: Completed High School Smoking Status: Current every day smoker Tobacco Type: cigarettes # Packs/Day (cigarettes): 1 Alcohol Intake: never Alcohol Intake Frequency:: holidays/special occasions only *Occupational Status:: disabled Housing: house Household Members: significant other *Travel in the last 8 weeks: None - Psychiatric History Expresses thoughts of harming self/others: None Suicide Plan Description: No Plan Pschychiatric History:: Reports:: Depression Family Hx:: Cancer, Coronary Artery Disease, Diabetes, Thyroid Disorder Para: 2 LMP comments: post menopausal
[2018-05-08 10:27] LABS: Basophils % 0.6 % (0.1-2.0); Eosinophils # 0.2 K/mm3 (0.0-0.4); Eosinophils % 3.5 % (0.1-12.0); Hematocrit 32.7 % (37.0-47.0); Hemoglobin 10.8 g/dL (12.2-16.2); Lymphocytes # 2.6 K/mm3 (0.7-4.5); Lymphocytes % 47.8 % (10-50); Mean Corpuscular HGB Conc 32.9 g/dL (31.8-35.4); Mean Corpuscular Hemoglobin 32.8 pg (27.0-31.2); Mean Corpuscular Volume 99.8 fl (81-99); Mean Platelet Volume 8.3 fl (7.4-10.4); Monocytes # 0.2 K/mm3 (0.1-1.0); Monocytes % 3.8 % (1.7-9.3); Neutrophils # 2.4 K/mm3 (1.8-7.8); Neutrophils % 44.2 % (37.0-80.0); Platelet Count 209 K/mm3 (142-424); Red Blood Count 3.28 M/mm3 (4.20-5.40); Red Cell Distribution Width 13.7 % (11.5-17.5); White Blood Count 5.4 K/mm3 (4.8-10.8)
--- NOTE | 2018-05-08 12:34 | Operative Note ---
Date of procedure: 05/08/18 Pre-op Diagnosis:: Cholelithiasis Post-op Diagnosis:: Same Liver cyst Procedure performed:: 1. Laparoscopic cholecystectomy 2. Biopsy of liver cyst Surgeon:: Marc Mcclelland MD DIST[employer]BUTION [employer]PERATION SUPERVISOR:: Cricket [employer] Anesthesia: GETTad Estimated blood loss (mL): 15 Clinical Note:: Patient is a 57-year-old white female with a 3-week history of nausea. She has had some diffuse somewhat nondescript abdominal pain. She had been undergoing outpatient workup. Her symptoms have been progressive and persistent and she presented this weekend to [facility] emergency department. She had a noncontrast CT scan performed which was suggestive of possible gallbladder disease. She had an ultrasound revealing gallstones. Patient's symptoms persisted and therefore plan was made to proceed with cholecystectomy. Operative findings:: She had a somewhat distended gallbladder. Adjacent to the gallbladder there is a benign-appearing hepatic cyst which was biopsied. Operative note:: Consent was obtained and patient was taken to the operating room. She was positioned in a supine position. General anesthesia was induced. Her abdomen was prepped and draped in the standard surgical fashion. Infraumbilical skin incision was made and dissection was carried down to the fascia. While performing abdominal wall lift Veress needle was inserted. CO2 pneumoperitoneum was achieved to 15 mmHg. 11 mm optical trocar was inserted the umbilicus and intraperitoneal contents were visualized. She was positioned in a reverse Trendelenburg left side down position. A couple of 5 mm trochars were inserted in the right upper abdomen. 10 mm trocar was inserted in the epigastrium. Ga llbladder was grasped retracted anteriorly and superiorly over the dome of the liver. There were a few adhesions of omentum and duodenum to the gallbladder which was dissected free. Infundibulum/Love's pouch of the gallbladder was retracted anterior laterally. Visceral peritoneum was incised using electrocautery along the right lateral edge and the cystic structures were dissected free. Cystic duct and cystic artery were clearly identified and isolated. Cystic duct was multiply clipped and then divided. Cystic artery was carefully coagulated with DWAYNE ultrasonic harmonic kelly and divided. The gallbladder was dissected free from the liver in a retrograde fashion using DWAYNE ultrasonic harmonic kelly. The gallbladder was placed within an Endo Catch retrieval device and removed from the peritoneal cavity via the umbilical trocar site. There was noted to be a small benign-appearing liver cyst adjacent to the gallbladder measuring about 8 mm. This was grasped and the cyst wall was excised using blunt dissection and sent off as liver cyst biopsy. Limited use of electrocautery was used at this biopsy site and on the liver for good hemostasis. Irrigation of the gallbladder fossa and perihepatic space was performed and aspirated until clear. Trochars were removed and CO2 pneumoperitoneum was evacuated. Fascia at the umbilicus was closed with 0 Vicryl [id number] suture. Local anesthetic was infiltrated. Skin incisions were closed with 4-0 Monocryl in a subcuticular fashion. Steri-Strips and dressings were applied. Condition: stable Disposition: PACU Specimens:: GallBladder Liver cyst Complications:: None immediately apparent
--- NOTE | 2018-05-08 12:41 | Progress Note ---
[facility] Anesthesia Record Part II Discharge Time: 13:05 Destination: 2nd floor PACU nurse assessment reviewed?: Yes Patient Condition:: Good Anesthesia Complications:: None Swallowing reflex intact?: Yes Cyanosis?: No
--- NOTE | 2018-05-08 12:41 | Progress Note ---
[facility] Anesthesia Record Part I Intake, IV Amount: 700 Estimated blood loss (mL): 10 Urine output (mL): 0 Blood Pressure: 92/55 SaO2: 95 Pulse Rate: 72 Respiratory Rate: 16 Temperature: 98 F Patient is:: Drowsy, Stable Stable to PACU at:: 12:35
--- NOTE | 2018-05-09 07:13 | Progress Note ---
Subjective Narrative: Resting Exam Vital signs and Labs for Last 24 Hours: Temp Pulse Resp BP Pulse Ox 97.9 F 79 18 106/54 L 95 05/09/18 04:00 05/09/18 04:00 05/09/18 04:00 05/09/18 04:00 05/09/18 04:00 Laboratory Results - last 24 hr 05/08/18 08:58: WBC 5.4, RBC 3.28 L, Hgb 10.8 L, Hct 32.7 L, MCV 99.8 H, MCH 32.8 H, MCHC 32.9, RDW 13.7, Plt Count 209, MPV 8.3, Neut % (Auto) 44.2, Lymph % (Auto) 47.8, [place] % (Auto) 3.8, Eos % (Auto) 3.5, Baso % (Auto) 0.6, Neut # (Auto) 2.4, Lymph # (Auto) 2.6, [place] # (Auto) 0.2, Eos # (Auto) 0.2, Baso # (Auto) 0.0 05/08/18 08:58: Sodium 147 H, Potassium 3.6, Chloride 112 H, Carbon Dioxide 29, Anion Gap 9.6, BUN 7 D, Creatinine 0.73, Estimated Creat Clear 83, Estimated GFR 83, Est GFR ( Amer) 100 D, Glucose 86, Calcium 7.9 L, Total Bilirubin 0.2, AST 10 L, ALT 13 D, Alkaline Phosphatase 60, Total Protein 5.4 L , Albumin 2.6 L, Globulin 2.8, Albumin/Globulin Ratio 0.9 L, Amylase 35 05/08/18 08:58: Lipase 93 I & O for Last 24 hours: Intake & Output 05/06/18 05/07/18 05/08/18 05/09/18 10:59 11:59 11:59 11:59 Intake Total 2327 / 2327 1040 / 1040 Balance 2327 / 2327 1040 / 1040 Weight 133 lb 4.989 oz Microbiology Reports for the Last 24 Hours: Microbiology 05/06/18 18:40 Blood Blood Culture - Preliminary NO GROWTH AFTER 48 HOURS 05/06/18 18:49 Blood Blood Culture - Preliminary NO GROWTH AFTER 48 HOURS 05/06/18 12:43 Urine,Clean Catch Urine Culture - Final Multiple organisms, suggests contamination. - Constitutional no acute distress Progress Note: A&P (1) Acute cholecystitis Status: Acute Current Visit: Yes (2) Ileus, gallstone Status: Acute Current Visit: Yes (3) Cholelithiasis Status: Acute Current Visit: Yes (4) Tobacco abuse Status: Acute Current Visit: Yes (5) Lumbosacral disc disease Status: Acute Current Visit: Yes Assessment and Plan for All Diagnoses:: Probable discharge.
--- NOTE | 2018-05-09 09:11 | Progress Note ---
Internal Medicine - PN: Subj *Date: 05/09/18 *Time: 09:02 Interval history: Patient is ready to go home. She states she feels well. She is ambulated in the hallway. She has tolerated food. Bowels have not moved. She is voiding QS. She denies chest pain and shortness of breath. She has had some right upper quadrant discomfort relieved with heat. Exam Vital signs and Labs for Last 24 Hours: Temp Pulse Resp BP Pulse Ox 98.7 F 85 17 124/58 L 92 L 05/09/18 08:00 05/09/18 08:00 05/09/18 08:00 05/09/18 08:00 05/09/18 08:00 Laboratory Results - last 24 hr 05/08/18 08:58: WBC 5.4, RBC 3.28 L, Hgb 10.8 L, Hct 32.7 L, MCV 99.8 H, MCH 32.8 H, MCHC 32.9, RDW 13.7, Plt Count 209, MPV 8.3, Neut % (Auto) 44.2, Lymph % (Auto) 47.8, [place] % (Auto) 3.8, Eos % (Auto) 3.5, Baso % (Auto) 0.6, Neut # (Auto) 2.4, Lymph # (Auto) 2.6, [place] # (Auto) 0.2, Eos # (Auto) 0.2, Baso # (Auto) 0.0 05/08/18 08:58: Sodium 147 H, Potassium 3.6, Chloride 112 H, Carbon Dioxide 29, Anion Gap 9.6, BUN 7 D, Creatinine 0.73, Estimated Creat Clear 83, Estimated GFR 83, Est GFR ( Amer) 100 D, Glucose 86, Calcium 7.9 L, Total Bilirubin 0.2, AST 10 L, ALT 13 D, Alkaline Phosphatase 60, Total Protein 5.4 L , Albumin 2.6 L, Globulin 2.8, Albumin/Globulin Ratio 0.9 L, Amylase 35 05/08/18 08:58: Lipase 93 I & O for Last 24 hours: Intake & Output 05/06/18 05/07/18 05/08/18 05/09/18 10:59 11:59 11:59 11:59 Intake Total 2327 / 2327 1640 / 1640 Balance 2327 / 2327 1640 / 1640 Weight 133 lb 4.989 oz Microbiology Reports for the Last 24 Hours: Microbiology 05/06/18 18:40 Blood Blood Culture - Preliminary NO GROWTH AFTER 48 HOURS 05/06/18 18:49 Blood Blood Culture - Preliminary NO GROWTH AFTER 48 HOURS 05/06/18 12:43 Urine,Clean Catch Urine Culture - Final Multiple organisms, suggests contamination. - Constitutional no acute distress Comments: Sitting up in the chair at the bedside and appears very comfortable. - *Routine Respiratory Exam Present: CTA bilaterally (Anteriorly and posteriorly) - *Routine Cardiovascular Exam Present: RRR - *Routine Abdominal Exam Present: soft, normoactive bowel sounds, distended (Slightly) Comments: Abdominal dressings are clean and dry.. Postop tenderness - *Routine Extremities Exam Absent: edema, calf tenderness - *Routine Neurological Exam Present: alert, oriented X3 Assessment and Plan (1) Acute cholecystitis Current visit: Yes Status: Acute Category: Medical Code(s): K81.0 - Acute cholecystitis (2) Ileus, gallstone Current visit: Yes Status: Acute Category: Medical Code(s): K56.3 - Gallstone ileus (3) Cholelithiasis Current visit: Yes Status: Acute Category: Medical Code(s): K80.20 - Calculus of gallbladder without cholecystitis without obstruction (4) Tobacco abuse Current visit: Yes Status: Acute Category: Medical Code(s): Z72.0 - Tobacco use (5) Lumbosacral disc disease Current visit: Yes Status: Acute Category: Medical Code(s): M51.9 - Unspecified thoracic, thoracolumbar and lumbosacral intervertebral disc disorder - Assessment and plan all Dx Assessment and Plan for all problems:: Patient will be discharged home after being seen by Dr. Mcclelland and Dr. Kang.
--- NOTE | 2018-05-09 09:58 | Progress Note ---
Subjective Narrative: Patient is alert and awake at this time. She has been tolerating a diet without difficulty. She has been ambulating. Exam Vital signs and Labs for Last 24 Hours: Temp Pulse Resp BP Pulse Ox 98.7 F 85 17 124/58 L 92 L 05/09/18 08:00 05/09/18 08:00 05/09/18 08:00 05/09/18 08:00 05/09/18 08:00 Laboratory Results - last 24 hr 05/08/18 08:58: WBC 5.4, RBC 3.28 L, Hgb 10.8 L, Hct 32.7 L, MCV 99.8 H, MCH 32.8 H, MCHC 32.9, RDW 13.7, Plt Count 209, MPV 8.3, Neut % (Auto) 44.2, Lymph % (Auto) 47.8, [place] % (Auto) 3.8, Eos % (Auto) 3.5, Baso % (Auto) 0.6, Neut # (Auto) 2.4, Lymph # (Auto) 2.6, [place] # (Auto) 0.2, Eos # (Auto) 0.2, Baso # (Auto) 0.0 05/08/18 08:58: Lipase 93 I & O for Last 24 hours: Intake & Output 05/06/18 05/07/18 05/08/18 05/09/18 10:59 11:59 11:59 11:59 Intake Total 2327 / 2327 1740 / 1740 Balance 2327 / 2327 1740 / 1740 Weight 133 lb 4.989 oz Microbiology Reports for the Last 24 Hours: Microbiology 05/06/18 18:40 Blood Blood Culture - Preliminary NO GROWTH AFTER 48 HOURS 05/06/18 18:49 Blood Blood Culture - Preliminary NO GROWTH AFTER 48 HOURS 05/06/18 12:43 Urine,Clean Catch Urine Culture - Final Multiple organisms, suggests contamination. - *Routine Abdominal Exam Present: soft. Absent: tenderness Progress Note: A&P (1) Acute cholecystitis Status: Acute Current Visit: Yes (2) Ileus, gallstone Status: Acute Current Visit: Yes (3) Cholelithiasis Status: Acute Current Visit: Yes (4) Tobacco abuse Status: Acute Current Visit: Yes (5) Lumbosacral disc disease Status: Acute Current Visit: Yes Assessment and Plan for All Diagnoses:: Plan for discharge today. I will give a prescription for a few hydrocodone for immediate postoperative pain. I will see her in the office in about 2 weeks.
--- NOTE | 2018-05-09 21:39 | Discharge Summary ---
General - General Admission date:: 05/06/18 Discharge date: 05/09/18 HPI HPI: This 57-year-old white female was admitted to the emergency room with abdominal pain. she had a CT scan that revealed gallstones. She has had GI distress for 3 weeks. She has had pain and nausea. She has not had vomiting. She is a patient of NATALIE Goodwin. She was seen in the emergency room at [facility] and admitted. Dr. Grace spoke to Dr. Alfredo who will be seeing her in consultation for possible cholecystectomy. Significant in the family history is gallbladder disease in her father. Also significant in the past history is chronic back pain for which she has received a spinal cord stimulator that was placed March 29, [address] Mata at [facility]. Hospital Course Hospital Course: The patient's abdominal CT showed gallstones but no biliary ductal dilatation. There was diffuse wall thickening of the urinary bladder which was possibly reflective of cystitis. Her urine culture showed mixed organisms. There was also some scattered air-fluid levels throughout the small bowel suggesting a mild ileus or early enteritis. She had a gallbladder ultrasound showing gallstones and borderline gallbladder wall thickening. Dr. Alfredo was consulted. He did not feel the patient had acute cholecystitis but did feel she had symptomatic cholelithiasis. He recommended brief observation with an attempted at an oral diet as well as IV fluids and pain control. He felt if her pain improved and a diet was tolerated, she could be followed up as an outpatient. If the pain was precipitated with oral intake, then he would proceed with cholecystectomy. The patient attempted to eat a diet and this was followed by nausea and continued pain. She was continued on antibiotics prophylactically. Dr. Mcclelland saw the patient and performed a laparoscopic cholecystectomy. The patient tolerated the procedure well and was able to tolerate a diet and ambulate in the hallway. Dr. Mcclelland felt she could be discharged and he wrote a prescription for a few hydrocodone for immediate postoperative pain. He will follow up with her in the office in 2 weeks. Objective Vital signs: Temp Pulse Resp BP Pulse Ox 98.7 F 85 17 124/58 L 92 L 05/09/18 08:00 05/09/18 08:00 05/09/18 08:00 05/09/18 08:00 05/09/18 08:00 Narrative: - Constitutional no acute distress - *Routine HEENT Exam Head: Present: normocephalic Eye: Present: PERRL ENT: Present: mucous membranes dry, external ear normal. Absent: dentition normal (Edentulous at maxilla) - *Routine Neck Exam Present: full ROM - Routine Chest/Breast/Axilla Exam Chest wall: Absent: tenderness - *Routine Respiratory Exam Present: decreased breath sounds, rales (Fine rales at the left base more than the right) - *Routine Cardiovascular Exam Present: RRR - *Routine Abdominal Exam Present: soft, tenderness (Right upper quadrant) - *Routine Rectal Exam Comments: Not performed - *Routine Extremities Exam Absent: edema - *Routine Skin Exam Present: intact, dry - *Routine Neurological Exam Present: alert, oriented X3. Absent: motor deficit, altered mental status Results Labs on day of discharge: Preliminary micro results at discharge 05/06/18 18:40 Blood Culture - Preliminary Blood NO GROWTH AFTER 48 HOURS 05/06/18 18:49 Blood Culture - Preliminary Blood NO GROWTH AFTER 48 HOURS DS: Diagnosis - Discharge Diagnosis (1) Acute cholecystitis Status: Acute (2) Ileus, gallstone Status: Acute (3) Cholelithiasis Status: Acute (4) Tobacco abuse Status: Acute (5) Lumbosacral disc disease Status: Acute Discharge Plan - Patient Discharge Instructions ACTIVITY: Limited activity DIET: low fat, low cholesterol Patient Instructions: DI for Gallstones, DI for Urinary Tract Infection (UTI), DI for Acute Abdomen, DI for Cholecystitis - Follow up Plan Follow up with: Marc Mcclelland MD [Staff Physician] - Lolly Kang MD [Staff Physician] - 2 weeks Disposition: Home, Self-Nursing Home Medications: Home Medications Medication Instructions Recorded Confirmed Type Diclofenac Potassium [Diclofenac 50 mg PO DAILY 04/26/17 05/06/18 History 50mg Tab] Pregabalin [Lyrica 150mg Cap] 1 tab PO TID 04/26/17 05/07/18 History clonazePAM [Klonopin 0.5mg tablet] 0.5 mg PO BIDP PRN 04/26/17 05/07/18 History bupropion HCl XL 300 mg 24 hr 300 mg PO DAILY 30 Days 06/11/17 05/06/18 History tablet, extended release Loratadine [Allergy Relief] 10 mg PO ONCE 08/23/17 05/06/18 History Pantoprazole Sodium [Protonix 40mg 40 mg PO HS 05/07/18 05/07/18 History tablet] Tramadol HCl [Tramadol 50mg 50 mg PO BID 05/07/18 05/07/18 History Tab] Hydrocod/Acet 5/325 mg [[place] 1 - 2 tab PO Q6HP PRN #17 tab 05/09/18 Rx 5/325mg tablet] Hyoscyamine Sulfate [Levsin 0.125 mg PO QIDP PRN #60 tab.rapdis 05/09/18 Rx 0.125mg tablet] Prescriptions/Medication Reconciliation: New Hyoscyamine Sulfate [Levsin 0.125mg tablet] 0.125 mg PO QIDP PRN #60 tab.rapdis PRN Reason: Cramping Hydrocod/Acet 5/325 mg [[place] 5/325mg tablet] 1 - 2 tab PO Q6HP PRN #17 tab PRN Reason: Moderate Pain Continue bupropion HCl XL 300 mg 24 hr tablet, extended release 300 mg PO DAILY 30 Days Pregabalin [Lyrica 150mg Cap] 1 tab PO TID Diclofenac Potassium [Diclofenac 50mg Tab] 50 mg PO DAILY clonazePAM [Klonopin 0.5mg tablet] 0.5 mg PO BIDP PRN PRN Reason: Anxiety Loratadine [Allergy Relief] 10 mg PO ONCE Tramadol HCl [Tramadol 50mg Tab] 50 mg PO BID Pantoprazole Sodium [Protonix 40mg tablet] 40 mg PO HS
== END 2018-05-09 10:50 | disposition home or self-care (01) ==
LOC: 2ND 12:02 → ER 12:02 → 2ND 15:59
PROVIDERS: ADMIT Family Medicine; ATTEND Family Medicine
DX: Z88.8 Allergy status to other drugs, medicaments and biological substances; Z72.0 Tobacco use; K80.00 Calculus of gallbladder with acute cholecystitis without obstruction; Z88.0 Allergy status to penicillin; N95.9 Unspecified menopausal and perimenopausal disorder; Z79.899 Other long term (current) drug therapy; M51.9 Unspecified thoracic, thoracolumbar and lumbosacral intervertebral disc disorder; Z98.890 Other specified postprocedural states; R53.1 Weakness; N39.0 Urinary tract infection, site not specified; Z88.2 Allergy status to sulfonamides; K66.0 Peritoneal adhesions (postprocedural) (postinfection); R69 Illness, unspecified; G89.4 Chronic pain syndrome
CPT/HCPCS: 36415; 74177; 76705; 80048; 80053; 80305; 81001; 82150; 83605; 83690; 84484; 85025; 87040; 87086; 88304; 88307; 88313; 99282; G0378; J1956; J2405; J2710; Q9967; S0077

== ENCOUNTER → 2018-05-22 10:32 | Outpatient (POV) | payer MEDICARE, SELFPAY ==
[2018-05-22 11:07] VITALS: BP 107/56; PULSE 104; RESP 18; O2SAT 98; BMI 23.3
--- NOTE | 2018-05-23 08:48 | HMH.PAINSOAP ---
[facility] [place] Pain Management SOAP Note Subjective:: Is a pleasant 57-year-old white female who presents today for follow-up. Patient has a neurostimulator and is doing extremely well. She did have her gallbladder taken out recently and she is having some illness secondary to that however she states that she is not having any back pain and is able to do her activities of daily living. ROS General: no recent weight change, no fever, no sleep disturbances Respiratory: no cough, no shortness of air, no recurring pulmonary infections Cardiovascular/Peripheral Vascular: No chest pain, No palpitations, no edema, no shortness of breath. Gastrointestinal: no incontinence, normal bowel movements reported Genitourinary: no incontinence Musculoskeletal: Back pain, leg pain Psychiatric: normal mood/ affect Neurological: [denies weakness in extremities], [denies balance issues] Objective:: Physical Exam General: Alert and oriented x3, no acute distress, pleasant and cooperative, [on room air] Lungs: Resps E/U, Symmetrical chest expansion, Eyes: PERRL Musculoskeletal: Flexion and extension of lumbar spine somewhat guarded secondary to pain, deep tendon reflexes normal, strength in upper and lower extremities [5/5], slightly antalgic gait noted Neurological: speech clear, livestock counter equal, no gross sensory deficits Assessment:: 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 She is been instructed to call the office if she has any issues prior to her next appointment. Dr. Mata has reviewed this note and agrees with this plan of care. This note was dictated using voice recognition software and may contain errors or omissions
== END ==
PROVIDERS: PCP Nurse Practitioner Family; Visit Provider Clinical Nurse Specialist Family Health
DX: M47.896 Other spondylosis, lumbar region (principal); M51.16 Intervertebral disc disorders with radiculopathy, lumbar region
CPT/HCPCS: 99213

== ENCOUNTER → 2018-08-27 15:30 | Outpatient (CLI) | payer MEDICARE, SELFPAY ==
[2018-08-27 16:04] LABS: Adenovirus F 40/41, stool Not Detected (NotDetected); Astrovirus Not Detected (NotDetected); Campylobacter Not Detected (NotDetected); Clostridium Difficile A/B, PCR Not Detected (NotDetected); Cryptosporidium Not Detected (NotDetected); Cyclospora Cayetanesis Not Detected (NotDetected); Entamoeba histolytica Not Detected (NotDetected); Enteroaggregative E coli Not Detected (NotDetected); Enteropathogenic E coli Not Detected (NotDetected); Enterotoxigenic E coli Not Detected (NotDetected); Giardia lamblia Not Detected (NotDetected); Norovirus Not Detected (NotDetected); Plesimonas Shigalloides, PCR Not Detected (NotDetected); Rotavirus A Not Detected (NotDetected); Salmonella, PCR Not Detected (NotDetected); Sapovirus Not Detected (NotDetected); Shiga-like toxin E coli Not Detected (NotDetected); Shigella Enterovasive E coli Not Detected (NotDetected); Vibrio Cholerae Not Detected (NotDetected); Vibrio, PCR Not Detected (NotDetected); Yersinia Entercolitica, PCR Not Detected (NotDetected)
== END ==
PROVIDERS: PCP Nurse Practitioner Family; Visit Provider Emergency Medicine
DX: R19.7 Diarrhea, unspecified (principal)
CPT/HCPCS: 87507

== ENCOUNTER → 2018-09-18 14:24 | Outpatient (POV) | payer MEDICARE, SELFPAY ==
--- NOTE | 2018-09-18 14:49 | HMH.PAINSOAP ---
[facility] Pain Management SOAP Note Subjective:: Patient is an extremely pleasant 57-year-old white female who presents today for follow-up. Patient is doing extremely well with her neurostimulator and is not having any pain today. Patient would like to just follow-up in 6 months to be reassessed then. Patient understands that if she needs anything or any additional screening to call our office or the claims representative. ROS General: no recent weight change, no fever, no sleep disturbances Respiratory: no cough, no shortness of air, no recurring pulmonary infections Cardiovascular/Peripheral Vascular: No chest pain, No palpitations, no edema, no shortness of breath. Gastrointestinal: no incontinence, normal bowel movements reported Genitourinary: no incontinence Musculoskeletal: Back pain and leg pain at times Psychiatric: normal mood/ affect, [denies depression], [denies anxiety] Neurological: [denies weakness in extremities], [denies balance issues] Objective:: Physical Exam General: Alert and oriented x3, no acute distress, pleasant and cooperative, [on room air] Lungs: Resps E/U, Symmetrical chest expansion, Eyes: PERRL Musculoskeletal: Flexion and extension of lumbar spine somewhat guarded secondary to pain, deep tendon reflexes normal, strength in upper and lower extremities [5/5], slightly antalgic gait noted Neurological: speech clear, trademark paralegal equal, no gross sensory deficits Assessment:: Degenerative disc disease lumbar spine with lumbar radiculopathy and lumbar spondylosis Plan:: We will see the patient back in 6 months unless she needs us prior to that. She is been instructed to call our office if any issue arises she needs to be seen for prior to her next appointment. Overall patient is doing well. Dr. Mata has reviewed this note and agrees with this plan of care. This note was dictated using voice recognition software and may contain errors or omissions
--- NOTE | 2018-09-18 14:52 | P.CONS_ITS ---
[facility] Pain Management SOAP Note Subjective:: Patient is an extremely pleasant 57-year-old white female who presents today for follow-up. Patient is doing extremely well with her neurostimulator and is not having any pain today. Patient would like to just follow-up in 6 months to be reassessed then. Patient understands that if she needs anything or any additional screening to call our office or the volunteer patient representative. ROS General: no recent weight change, no fever, no sleep disturbances Respiratory: no cough, no shortness of air, no recurring pulmonary infections Cardiovascular/Peripheral Vascular: No chest pain, No palpitations, no edema, no shortness of breath. Gastrointestinal: no incontinence, normal bowel movements reported Genitourinary: no incontinence Musculoskeletal: Back pain and leg pain at times Psychiatric: normal mood/ affect, [denies depression], [denies anxiety] Neurological: [denies weakness in extremities], [denies balance issues] Objective:: Physical Exam General: Alert and oriented x3, no acute distress, pleasant and cooperative, [on room air] Lungs: Resps E/U, Symmetrical chest expansion, Eyes: PERRL Musculoskeletal: Flexion and extension of lumbar spine somewhat guarded secondary to pain, deep tendon reflexes normal, strength in upper and lower extremities [5/5], slightly antalgic gait noted Neurological: speech clear, graphic design teacher equal, no gross sensory deficits Assessment:: Degenerative disc disease lumbar spine with lumbar radiculopathy and lumbar spondylosis Plan:: We will see the patient back in 6 months unless she needs us prior to that. She is been instructed to call our office if any issue arises she needs to be seen for prior to her next appointment. Overall patient is doing well. Dr. Mata has reviewed this note and agrees with this plan of care. This note was dictated using voice recognition software and may contain errors or omissions
[2018-09-18 14:59] VITALS: BP 91/55; PULSE 92; RESP 18; O2SAT 98; BMI 23.3
== END ==
PROVIDERS: PCP Nurse Practitioner Family; Visit Provider Clinical Nurse Specialist Family Health
DX: M51.16 Intervertebral disc disorders with radiculopathy, lumbar region (principal); M47.816 Spondylosis without myelopathy or radiculopathy, lumbar region
CPT/HCPCS: 99212

== ENCOUNTER → 2018-09-18 16:26 | Outpatient (POV) | payer MEDICARE, SELFPAY | PROVIDERS: PCP Nurse Practitioner Family; Referring Provider Nurse Practitioner Family; Visit Provider Nurse Practitioner Family | DX: Z00.00 Encounter for general adult medical examination without abnormal findings (principal) ==

== ENCOUNTER → 2018-10-04 10:18 | Outpatient (CLI) | payer MEDICARE, SELFPAY ==
--- NOTE | 2018-10-04 10:20 | MM_ITS ---
MM Dig screening mamm BI w/CAD CAD Screening COMPARISON: Digital mammograms with CAD 09/08/2017 and 08/17/2016 INDICATION: There is a history of breast cancer patient maternal grandmother and maternal great grandmother both after menopause. TECHNIQUE: Standard CC and MLO images were obtained. R2 CAD reviewed. FINDINGS: Moderate scattered fibroglandular densities are seen throughout both breasts. There are few benign-appearing microcalcifications just deep to the nipple left breast. There is no suspicious lesion and there are no suspicious microcalcifications. IMPRESSION: Fibrofatty parenchyma with no suspicious lesion seen BI-RADS Category: 2 Benign Finding(s) RECOMMENDED FOLLOW-UP: 1YR - 1 YEAR FOLLOW-UP (A letter has been sent to the patient regarding results of the study.)
== END ==
PROVIDERS: PCP Nurse Practitioner Family; Visit Provider Nurse Practitioner Family
DX: Z12.31 Encounter for screening mammogram for malignant neoplasm of breast (principal)
CPT/HCPCS: 77067

== ENCOUNTER → 2018-10-16 08:35 | Outpatient (POV) | payer MEDICARE, SELFPAY | PROVIDERS: PCP Nurse Practitioner Family; Visit Provider Nurse Practitioner Family | DX: Z00.00 Encounter for general adult medical examination without abnormal findings (principal) ==

== ENCOUNTER → 2019-01-08 14:59 | Outpatient (POV) | payer MEDICARE, SELFPAY ==
[2019-01-08 15:24] VITALS: BP 114/60; PULSE 79; RESP 18; O2SAT 98; BMI 23.8
--- NOTE | 2019-01-09 08:25 | HMH.PAINSOAP ---
[facility] Pain Management SOAP Note Subjective:: Patient is a pleasant 58-year-old white female who presents today for follow-up. Patient had a SI joint injection which was beneficial however her pain is beginning to return. She would like to repeat this. She rates her pain a 8 out of 10. Patient is not on any anti-inflammatories at this time. Patient is continuing a home stretching program. She has a neurostimulator which is working well for her back and leg pain. Patient has a positive Jaxson sign Dada sign and SI joint compression on the left side ROS General: no recent weight change, no fever, no sleep disturbances Respiratory: no cough, no shortness of air, no recurring pulmonary infections Cardiovascular/Peripheral Vascular: No chest pain, No palpitations, no edema, no shortness of breath. Gastrointestinal: no new onset incontinence, normal bowel movements reported Genitourinary: no new onset incontinence Musculoskeletal: SI joint pain Psychiatric: normal mood/ affect Neurological: [denies new onset weakness in extremities], [denies new onset balance issues] Objective:: Physical Exam General: Alert and oriented x3, no acute distress, pleasant and cooperative, [on room air] Lungs: Resps E/U, Symmetrical chest expansion, Eyes: PERRL Musculoskeletal: Flexion and extension of lumbar spine somewhat guarded secondary to pain, deep tendon reflexes normal, strength in upper and lower extremities [5/5], [abnormal gait noted] Neurological: speech clear, household manager equal, no gross sensory deficits Assessment:: Sacroiliitis Plan:: We will schedule left SI joint injection repeat for the patient. I believe it would be beneficial given the symptomology. We will also start her on diclofenac 75 mg 1 p.o. twice daily. Follow-up with her after injection reassess her symptoms at that time she is been instructed to call the office if she has any issues prior to her next appointment. Dr. Mata has reviewed this note and agrees with this plan of care. This note was dictated using voice recognition software and may contain errors or omissions [facility] History I have reviewed the patient's past medical history: Yes Medical History: Reports:: Anxiety, Depression, Gastroesophageal Reflux Disease(GERD), Lung Disease (sleep apnea-does not use cpap) Denies:: Cancer, Diabetes Mellitus Type 1, Diabetes Mellitus Type 2, Internal Pacemaker, MRSA, Seizures *Have you ever received a pneumonia vaccine?: Yes *Have you received a flu vaccine this season?: Yes Other Medical History: Reports: Arthritis, Fibromyalgia, Sinus Problems, Other. Denies: Blood Transfusion Reaction Laterality Cases: Bilateral: Tonsillectomy, Other Other Surgeries: Yes: Appendectomy, Other (Dental extraction). No: Pacemaker Amputation: No Fractures: No - *Social History Smoking Status: Current every day smoker Tobacco Type: cigarettes # Packs/Day (cigarettes): 1 Alcohol Intake: never Alcohol Intake Frequency:: holidays/special occasions only *Occupational Status:: other Housing: house Household Members: significant other *Travel in the last 8 weeks: None - Psychiatric History Pschychiatric History:: Reports:: Anxiety, Depression Family Hx:: Cancer, Coronary Artery Disease, Diabetes, Thyroid Disorder
--- NOTE | 2019-01-09 08:28 | P.CONS_ITS ---
[facility] Pain Management SOAP Note Subjective:: Patient is a pleasant 58-year-old white female who presents today for follow-up. Patient had a SI joint injection which was beneficial however her pain is beginning to return. She would like to repeat this. She rates her pain a 8 out of 10. Patient is not on any anti-inflammatories at this time. Patient is continuing a home stretching program. She has a neurostimulator which is working well for her back and leg pain. Patient has a positive Jaxson sign Dada sign and SI joint compression on the left side ROS General: no recent weight change, no fever, no sleep disturbances Respiratory: no cough, no shortness of air, no recurring pulmonary infections Cardiovascular/Peripheral Vascular: No chest pain, No palpitations, no edema, no shortness of breath. Gastrointestinal: no new onset incontinence, normal bowel movements reported Genitourinary: no new onset incontinence Musculoskeletal: SI joint pain Psychiatric: normal mood/ affect Neurological: [denies new onset weakness in extremities], [denies new onset balance issues] Objective:: Physical Exam General: Alert and oriented x3, no acute distress, pleasant and cooperative, [on room air] Lungs: Resps E/U, Symmetrical chest expansion, Eyes: PERRL Musculoskeletal: Flexion and extension of lumbar spine somewhat guarded secondary to pain, deep tendon reflexes normal, strength in upper and lower extremities [5/5], [abnormal gait noted] Neurological: speech clear, baby counselor equal, no gross sensory deficits Assessment:: Sacroiliitis Plan:: We will schedule left SI joint injection repeat for the patient. I believe it would be beneficial given the symptomology. We will also start her on diclofenac 75 mg 1 p.o. twice daily. Follow-up with her after injection reassess her symptoms at that time she is been instructed to call the office if she has any issues prior to her next appointment. Dr. Mata has reviewed this note and agrees with this plan of care. This note was dictated using voice recognition software and may contain errors or omissions [facility] History I have reviewed the patient's past medical history: Yes Medical History: Reports:: Anxiety, Depression, Gastroesophageal Reflux Disease(GERD), Lung Disease (sleep apnea-does not use cpap) Denies:: Cancer, Diabetes Mellitus Type 1, Diabetes Mellitus Type 2, Internal Pacemaker, MRSA, Seizures *Have you ever received a pneumonia vaccine?: Yes *Have you received a flu vaccine this season?: Yes Other Medical History: Reports: Arthritis, Fibromyalgia, Sinus Problems, Other. Denies: Blood Transfusion Reaction Laterality Cases: Bilateral: Tonsillectomy, Other Other Surgeries: Yes: Appendectomy, Other (Dental extraction). No: Pacemaker Amputation: No Fractures: No - *Social History Smoking Status: Current every day smoker Tobacco Type: cigarettes # Packs/Day (cigarettes): 1 Alcohol Intake: never Alcohol Intake Frequency:: holidays/special occasions only *Occupational Status:: other Housing: house Household Members: significant other *Travel in the last 8 weeks: None - Psychiatric History Pschychiatric History:: Reports:: Anxiety, Depression Family Hx:: Cancer, Coronary Artery Disease, Diabetes, Thyroid Disorder
== END ==
PROVIDERS: PCP Nurse Practitioner Family; Visit Provider Clinical Nurse Specialist Family Health
DX: M46.1 Sacroiliitis, not elsewhere classified (principal)
CPT/HCPCS: 99212

== ENCOUNTER → 2019-02-19 12:19 | Outpatient (POV) | payer MEDICARE, SELFPAY ==
[2019-02-19 13:21] VITALS: BP 109/62; PULSE 91; RESP 18; O2SAT 99; BMI 23.3
--- NOTE | 2019-02-21 12:38 | HMH.PAINSOAP ---
[facility] Pain Management SOAP Note Subjective:: Patient is a very pleasant 58-year-old white female who presents today for follow-up after SI joint injection. Patient is still having quite a bit of pain rating it a 7 out of 10 mostly in her low back it is now radiating all down her leg. Patient does have a neurostimulator which is beneficial and states that it is still working however this is an increased flare in her pain. Patient and I discussed an epidural injection she would like to move forward with this. Patient's pain is mainly in her low back radiating in her bilateral legs. Patient is not on any anticoagulation therapy. She is continuing her anti-inflammatories. ROS General: no recent weight change, no fever, no sleep disturbances Respiratory: no cough, no shortness of air, no recurring pulmonary infections Cardiovascular/Peripheral Vascular: No chest pain, No palpitations, no edema, no shortness of breath. Gastrointestinal: no new onset incontinence, normal bowel movements reported Genitourinary: no new onset incontinence Musculoskeletal: Back pain, leg pain Psychiatric: normal mood/ affect Neurological: [denies new onset weakness in extremities], [denies new onset balance issues] Objective:: Physical Exam General: Alert and oriented x3, no acute distress, pleasant and cooperative, [on room air] Lungs: Resps E/U, Symmetrical chest expansion, Eyes: PERRL Musculoskeletal: Flexion and extension of lumbar spine somewhat guarded secondary to pain, deep tendon reflexes normal, strength in upper and lower extremities [5/5], [abnormal gait noted] Neurological: speech clear, heat treat puller equal, no gross sensory deficits Assessment:: Degenerative disc disease lumbar spine with lumbar radiculopathy Plan:: We will schedule an L4-L5 lumbar epidural steroid injection to see if this is beneficial for the patient. I do believe that she is just having an exacerbation of her typical pain. Patient is still doing all right with her neurostimulator. I will follow-up with her after this reassess her symptoms at that time she is been instructed to call the office if she has any issues prior to her next appointment. Patient is continuing a home stretching program and is not on any anticoagulation therapy. Dr. Mata has reviewed this note and agrees with this plan of care. This note was dictated using voice recognition software and may contain errors or omissions [facility] History I have reviewed the patient's past medical history: Yes Medical History: Reports:: Anxiety, Depression, Gastroesophageal Reflux Disease(GERD), Lung Disease (sleep apnea-does not use cpap) Denies:: Cancer, Diabetes Mellitus Type 1, Diabetes Mellitus Type 2, Internal Pacemaker, MRSA, Seizures *Have you ever received a pneumonia vaccine?: Yes *Have you received a flu vaccine this season?: Yes Other Medical History: Reports: Arthritis, Fibromyalgia, Sinus Problems, Other. Denies: Blood Transfusion Reaction Laterality Cases: Bilateral: Tonsillectomy, Other Other Surgeries: Yes: Appendectomy, Cholecystectomy, Other (Dental extraction). No: Pacemaker Amputation: No Fractures: No - *Social History Smoking Status: Current every day smoker Tobacco Type: cigarettes # Packs/Day (cigarettes): 1 Alcohol Intake: never Alcohol Intake Frequency:: holidays/special occasions only *Occupational Status:: other Housing: house Household Members: none *Travel in the last 8 weeks: None - Psychiatric History Pschychiatric History:: Reports:: Anxiety, Depression Family Hx:: Cancer
== END ==
PROVIDERS: PCP Nurse Practitioner Family; Visit Provider Clinical Nurse Specialist Family Health
DX: M51.16 Intervertebral disc disorders with radiculopathy, lumbar region (principal)
CPT/HCPCS: 99212

== ENCOUNTER → 2019-03-13 10:50 | Outpatient (POV) | payer MEDICARE, SELFPAY ==
--- NOTE | 2019-03-13 11:32 | P.CONS_ITS ---
[facility] Pain Management SOAP Note Subjective:: Patient is a pleasant 58-year-old white female who presents today for follow-up after lumbar epidural steroid injection. She did get some relief with this. Patient rates her pain today a 6 out of 10. Patient has a new Vectra stimulator and is unable to have an MRI so we will order a CT scan of her lumbar spine. Patient is having worsening pain. I would like to send her to Dr. Watters however we cannot do this until we get some diagnostic imaging of her lower lumbar spine. Patient's had pain for over 6 months. She is tried and failed injection therapy along with medications. She is currently on tramadol 50 mg 1 p.o. 3 times daily. She denies side effects to this. ROS General: no recent weight change, no fever, no sleep disturbances Respiratory: no cough, no shortness of air, no recurring pulmonary infections Cardiovascular/Peripheral Vascular: No chest pain, No palpitations, no edema, no shortness of breath. Gastrointestinal: no new onset incontinence, normal bowel movements reported Genitourinary: no new onset incontinence Musculoskeletal: Back pain, leg pain Psychiatric: normal mood/ affect Neurological: [denies new onset weakness in extremities], [denies new onset balance issues] Objective:: Physical Exam General: Alert and oriented x3, no acute distress, pleasant and cooperative, [on room air] Lungs: Resps E/U, Symmetrical chest expansion, Eyes: PERRL Musculoskeletal: Flexion and extension of lumbar spine somewhat guarded s econdary to pain, deep tendon reflexes normal, strength in upper and lower extremities [5/5], [abnormal gait noted] Neurological: speech clear, hand buffer equal, no gross sensory deficits Assessment:: Degenerative disc disease lumbar spine with lumbar radiculopathy Plan:: We will refill her tramadol 50 mg 1 p.o. 3 times daily will give herWe will get a CT scan of her lumbar spine and send her to Dr. Watters for evaluation. She is been instructed to call the office if she has any issues prior to her next appointment. Dr. Mata has reviewed this note and agrees with this plan of care. This note was dictated using voice recognition software and may contain errors or omissions [facility] History I have reviewed the patient's past medical history: Yes Medical History: Reports:: Anxiety, Depression, Gastroesophageal Reflux Disease(GERD), Lung Disease (sleep apnea-does not use cpap) Denies:: Cancer, Diabetes Mellitus Type 1, Diabetes Mellitus Type 2, Internal Pacemaker, MRSA, Seizures *Have you ever received a pneumonia vaccine?: No *Have you received a flu vaccine this season?: No Other Medical History: Reports: Arthritis, Fibromyalgia, Sinus Problems, Other. Denies: Blood Transfusion Reaction Laterality Cases: Bilateral: Tonsillectomy, Other Other Surgeries: Yes: Appendectomy, Cholecystectomy, Other (Dental extraction). No: Pacemaker Amputation: No Fractures: No - *Social History Smoking Status: Current every day smoker Tobacco Type: cigarettes # Packs/Day (cigarettes): 1 Alcohol Intake: never Alcohol Intake Frequency:: holidays/special occasions only *Occupational Status:: other Housing: house Household Members: none *Travel in the last 8 weeks: None - Psychiatric History Pschychiatric History:: Reports:: Anxiety, Depression Family Hx:: Cancer
[2019-03-13 12:14] VITALS: BP 98/59; PULSE 89; RESP 18; O2SAT 99; BMI 23.3
== END ==
PROVIDERS: PCP Nurse Practitioner Family; Visit Provider Clinical Nurse Specialist Family Health
DX: M51.16 Intervertebral disc disorders with radiculopathy, lumbar region (principal); F32.9 Major depressive disorder, single episode, unspecified; F41.9 Anxiety disorder, unspecified; K21.9 Gastro-esophageal reflux disease without esophagitis; M19.90 Unspecified osteoarthritis, unspecified site; Z72.0 Tobacco use
CPT/HCPCS: 99212

== ENCOUNTER → 2019-03-21 13:35 | Outpatient (CLI) | payer MEDICARE, SELFPAY ==
--- NOTE | 2019-03-21 13:39 | CT_ITS ---
PROCEDURE: CT LUMBAR SPINE WO CON CLINICAL HISTORY: BACK PAIN COMPARISON: No exams were available for comparison TECHNIQUE: Axial images obtained with sagittal and coronal reformats. All CT scans at the facility use one or more dose reduction, viz: automated exposure control, ma/kV adjustment per patient size (including targeted exams where dose is matched to indication, i.e. head), or iterative reconstruction technique. FINDINGS: Spinal stimulator apparatus is noted with electrodes entering the posterior central spinal canal at the T12 level traveling superiorly along the posterior central spinal canal projecting off of the field of view. There is no acute fracture dislocation or destructive lesion. There is approximately 3 millimeters anterior subluxation of L4 on L5. There is no other malalignment. At T12-L1 there is right paracentral disc bulge containing some dystrophic calcification. Minimal mass effect on the thecal sac is apparent. At L1-2 there is disc bulge eccentric to the right of midline with some dystrophic calcification. At L2-3 there is mild disc bulge with mild mass effect on the thecal sac. At L3-4 there is hypertrophic facet disease without significant degenerative disc disease. At L4-5 there is moderate hypertrophic facet disease with disc bulge and marginal osteophyte with central spinal canal stenosis and bilateral foraminal stenosis. Impingement of bilateral L4 nerve root sleeve should be considered clinically. At L5-S1 there is hypertrophic facet disease not appearing to contribute significantly to neural impingement. Mild sclerosis of both sacroiliac joints without ankylosis compatible with bilateral sacroiliitis is noted. IMPRESSION: Multilevel degenerative disc and facet disease as described with greatest neural impingement appearing to be central canal stenosis and bilateral foraminal stenosis L4-5 where there is anterior subluxation of L4 on L5. Bilateral sacroiliitis. Spinal stimulator apparatus is noted. Dictated by: Sterling Ramirez 03/21/2019 14:19 Electronically signed by Sterling Ramirez in [place] 03/21/2019 14:19
== END ==
PROVIDERS: PCP Nurse Practitioner Family; Visit Provider Clinical Nurse Specialist Family Health
DX: M54.5 Low back pain (principal)
CPT/HCPCS: 72131

== ENCOUNTER → 2019-04-10 10:12 | Outpatient (POV) | payer MEDICARE, SELFPAY ==
[2019-04-10 10:20] VITALS: BP 101/55; PULSE 80; RESP 18; O2SAT 98; BMI 23.0
--- NOTE | 2019-04-10 10:37 | P.CONS_ITS ---
[facility] Pain Management SOAP Note Subjective:: Patient is a pleasant 58-year-old white female who presents today for follow-up. She rates her pain a 4 out of 10. However again last week it was excruciating. Patient had a recent CT scan done due to the fact that she has an implantable neurostimulator and is unable to do an MRI. Patient has an L4-L5 bilateral impingement on her nerve root. Patient would like to try epidural injections prior to making any decisions in regards to surgical consultation. He is not on any anticoagulation therapy. She is continuing anti-inflammatories. ROS General: no recent weight change, no fever, no sleep disturbances Respiratory: no cough, no shortness of air, no recurring pulmonary infections Cardiovascular/Peripheral Vascular: No chest pain, No palpitations, no edema, no shortness of breath. Gastrointestinal: no new onset incontinence, normal bowel movements reported Genitourinary: no new onset incontinence Musculoskeletal: Leg pain, back pain Psychiatric: normal mood/ affect Neurological: [denies new onset weakness in extremities], [denies new onset balance issues] Objective:: Physical Exam General: Alert and oriented x3, no acute distress, pleasant and cooperative, [on room air] Lungs: Resps E/U, Symmetrical chest expansion, Eyes: PERRL Musculoskeletal: Flexion and extension of lumbar spine somewhat guarded secondary to pain, deep tendon reflexes normal, strength in upper and lower extremities [5/5], slightly antalgic gait noted Neurological: speech clear, cold roll inspector equal, no gross sensory deficits Assessment:: Degenerative disc disease lumbar spine with lumbar radiculopathy along with nerve impingement of the L4 nerve root Plan:: We will set her up for a series of 3 epidural steroid injections all 2 weeks apart. I will follow-up with her after the third 1 reassess her symptoms at that time she has been instructed to call the office if she has any issues prior to her next appointment. At that time depending on her success with her epidurals we will determine if she needs to go for a surgical consultation. Dr. Mata has reviewed this note and agrees with this plan of care. This note was dictated using voice recognition software and may contain errors or omissions [facility] History I have reviewed the patient's past medical history: Yes Medical History: Reports:: Anxiety, Depression, Gastroesophageal Reflux Dis ease(GERD), Lung Disease (sleep apnea-does not use cpap) Denies:: Cancer, Diabetes Mellitus Type 1, Diabetes Mellitus Type 2, Internal Pacemaker, MRSA, Seizures *Have you ever received a pneumonia vaccine?: Yes *Have you received a flu vaccine this season?: Yes Other Medical History: Reports: Arthritis, Fibromyalgia, Sinus Problems, Other. Denies: Blood Transfusion Reaction Laterality Cases: Bilateral: Tonsillectomy, Other Other Surgeries: Yes: Appendectomy, Cholecystectomy, Other (Dental extraction). No: Pacemaker Amputation: No Fractures: No - *Social History Smoking Status: Current every day smoker Tobacco Type: cigarettes # Packs/Day (cigarettes): 1 Alcohol Intake: never Alcohol Intake Frequency:: holidays/special occasions only *Occupational Status:: other Housing: house Household Members: none *Travel in the last 8 weeks: None - Psychiatric History Pschychiatric History:: Reports:: Anxiety, Depression Family Hx:: Cancer
== END ==
PROVIDERS: PCP Nurse Practitioner Family; Visit Provider Clinical Nurse Specialist Family Health
DX: M51.16 Intervertebral disc disorders with radiculopathy, lumbar region (principal); M25.80 Other specified joint disorders, unspecified joint
CPT/HCPCS: 99212

== ENCOUNTER → 2019-07-04 10:31 | Outpatient (CLI) | payer MEDICARE, SELFPAY ==
[2019-07-05 14:59] LABS: Covid-19 Nasal PCR Sendout Lex NOT DETECTED
== END ==
PROVIDERS: Visit Provider Internal Medicine Gastroenterology
DX: Z03.818 Encounter for observation for suspected exposure to other biological agents ruled out (principal)
CPT/HCPCS: U0003

== ENCOUNTER 2019-07-06 07:49 | Day surgery (SDC) | payer MEDICARE, SELFPAY ==
--- NOTE | 2019-07-03 10:50 | SUR.PREOP ---
07/03/19 @ 1050--PHONE CALL MADE TO PATIENT. PATIENT UNDERSTANDS THAT LAB WORK AND COVID TESTING NEEDS TO BE COMPLETED @ 1030 ON 07/04/19. PATIENT UNDERSTANDS IF LAB WORK AND COVID-19 TESTS ARE NOT COMPLETED BY 12PM ON THAT DATE, THE SURGERY SCHEDULED WILL BE CANCELLED AND RESCHEDULED FOR ANOTHER TIME.
[2019-07-03 12:15] VITALS: BMI 23.3
[2019-07-06] VITALS (8 sets, daily range): BP systolic 95–118; BP diastolic 51–69; PULSE 62–72; RESP 16–18; TEMP 36.6–36.7; O2SAT 95–98
--- NOTE | 2019-07-06 09:40 | HMH.ANESCL ---
[facility] Anesthesia Checklist - Structural Data Admitted From: Home Planned Operative Procedure/s: egd Consent for Planned Operative Procedure(s) Verified: Yes - Additional verifications Anesthesia Reactions: No Hx Blood Transfusions: No Blood Transfusion Reaction: No - Airway Assessment C-Spine Mobility Assessed: Yes TMJ Mobility Assessed: Yes Dentition: Poor Dentition - Neurological Assessment Level of Consciousness: Awake, Alert, Appropriate - Anesthesia Plan Anesthesia Risk discussed: Yes Anesthesia Plan: Verified ASA Class: III Anesthesia Type: MAC [facility] History I have reviewed the patient's past medical history: Yes Medical History: Reports:: Anxiety, Depression, Gastroesophageal Reflux Disease(GERD), Lung Disease (sleep apnea-does not use cpap) Denies:: Cancer, Diabetes Mellitus Type 1, Diabetes Mellitus Type 2, Internal Pacemaker, MRSA, Seizures *Have you ever received a pneumonia vaccine?: Yes *Have you received a flu vaccine this season?: Yes Other Medical History: Reports: Arthritis, Fibromyalgia, Sinus Problems, Other. Denies: Blood Transfusion Reaction Anesthesia experience/problems:: none Laterality Cases: Bilateral: Tonsillectomy, Other Other Surgeries: Yes: Appendectomy, Cholecystectomy, Other (Dental extraction). No: Pacemaker Amputation: No Fractures: No - *Social History Educational Level: Attended College Smoking Status: Current every day smoker Tobacco Type: cigarettes # Packs/Day (cigarettes): 1 Alcohol Intake: never Alcohol Intake Frequency:: holidays/special occasions only Substance Use Type: denies use *Occupational Status:: employed Housing: house Household Members: none *Travel in the last 8 weeks: None - Psychiatric History Pschychiatric History:: Reports:: Anxiety, Depression Family Hx:: Cancer, Diabetes, Hypertension, Stroke
--- NOTE | 2019-07-06 09:48 | P.PCN_ITS ---
[facility] Procedure Note Procedure Note:: Upper Endoscopy Procedure Report: Esophagogastroduodenoscopy with cold biopsies and TTS balloon dilation Endoscopost: Mahad Quiñones II, MD Referring Physician: NEREIDA Bergman Date of Procedure: July 06, 2019 Equipment: Olympus GIF 180 standard upper endoscope Sedation: MAC sedation Indications: Mrs. Foreman is a 58-year-old female with a history of chronic dyspepsia. The patient does report some epigastric abdominal pain and nausea. She has had bloating and some belching. She reports some early satiety and intermittent globus sensation. She has had prior laparoscopic cholecystectomy. She was an inpatient in April 2018 at which time she had gallbladder removal. At that time she had a CAT scan of the abdomen and pelvis that showed some colonic wall thickening and possibly early colitis. Her colonoscopy with me in April 2017 showed a single tubular adenoma and left-sided diverticulosis. The patient has used Xifaxan in the past. This is her first upper endoscopy. Procedure: Prior to the procedure, a history and physical exam was performed, and patient's medications and allergies were reviewed. The risks, benefits and alternatives of the sedation and procedure were discussed with the patient. All questions were answered and informed consent was obtained. The patient was brought to the procedure room. Patient identification and proposed procedure were verified by the physician and the nurse. The patient was placed in a left lateral decubitus position and the scope was passed under direct vision. Throughout the procedure, the patient's blood pressure, pulse, and oxygen saturations were monitored continuously. The upper GI endoscopy was accomplished without difficu lty. The patient tolerated the procedure well. Findings: The scope was passed directly into the upper esophagus and advanced to the third portion of the duodenum. The post bulbar duodenum and duodenal bulb were normal with normal mucosa and conniventes. Cold biopsies were taken from the post bulbar duodenum to rule out celiac disease. The scope was withdrawn through a normal duodenal bulb and pylorus into the stomach. There was moderate bile reflux with moderate linear reactive gastropathy of the antrum and body of the stomach. The remainder of the antrum, body and fundus of the stomach were grossly normal. Upon retroflexion there was no hiatal hernia. 2 biopsies were taken in the antrum and along the lesser curvature for histology to rule out gastritis and/or H pylori. The scope was then withdrawn into the esophagus. There was a single island of (2 mm) salmon-colored mucosa that was biopsied at the GE junction to rule out short segment Terrazas's. There were tertiary contractions and evidence of mild dysmotility. There was no evidence of reflux esophagitis or Schatzki's ring. The entire esophagus was dilated to 60 Portuguese/20 mm with a TTS hydrostatic balloon. There was mild resistance at the cricopharyngeus. The remainder of the esophageal mucosa was normal. Impression: 1. Nonerosive GERD with mild esophageal dysmotility 2. Bile reflux with moderate linear reactive gastropathy Plan: I will follow-up the biopsies. We will discuss additional dietary measures and treatment options for her functional dyspepsia and nausea.
== END 2019-07-06 10:50 | disposition home or self-care (01) ==
LOC: OUTP 07:50
PROVIDERS: PCP Nurse Practitioner Family; Visit Provider Internal Medicine Gastroenterology
PROC: 0DJ08ZZ Inspection of Upper Intestinal Tract, Via Natural or Artificial Opening Endoscopic (ICD-10-PCS; CPT 43235; principal; 2019-07-06 09:00)
DX: R10.13 Epigastric pain (principal); K22.2 Esophageal obstruction; K21.9 Gastro-esophageal reflux disease without esophagitis; K31.9 Disease of stomach and duodenum, unspecified; Z79.899 Other long term (current) drug therapy; Z88.1 Allergy status to other antibiotic agents
CPT/HCPCS: 43239; 43249; 88305; C1726

== ENCOUNTER → 2019-09-20 09:49 | Outpatient (POV) | payer MEDICARE, SELFPAY ==
--- NOTE | 2019-09-20 10:24 | HMH.PAINSOAP ---
[facility] Pain Management SOAP Note Subjective:: Patient is a 58-year-old white female who presents today for low back pain. Patient says that she underwent a lumbar epidural steroid injection at L4-L5. Patient reports when coronavirus increased, she was reluctant to come into the clinic. She says that she also underwent surgery for HPV. She says that she has been of antibiotics for greater than a month now. She also has a new Vectra spinal cord stimulator in place. It is working well at this point. Most of her pain is in her low back radiating into her left leg. Her pain a 5 out of 10. She has tried physical therapy in the past along with a continued home stretching program and anti-inflammatories. The patient is not on any anticoagulation therapy. Review of Systems General: No recent weight changes, no fever, no sleep disturbances Respiratory: No cough, no shortness of air, no recurring pulmonary infections Cardiovascular/peripheral vascular: No chest pain, no palpitations, no edema, no shortness of breath Gastrointestinal: No new onset incontinence, normal bowel movements reported Genitourinary: No new onset incontinence Musculoskeletal: Low back pain, left leg and left hip pain Psychiatric: Normal mood/affect Neurological: [Denies weakness in extremities], [denies balance issues] Objective:: Physical exam General: Alert and oriented x3, no acute distress, pleasant and cooperative, [on room air] Lungs: Respirations even and unlabored, symmetrical chest expansion Eyes: PERRL Musculoskeletal: Flexion and extension of lumbar spine somewhat guarded secondary to pain, deep tendon reflexes normal, strength in upper and lower extremities [5/5], [abnormal gait noted] Neurological: Speech clear, executive officer equal, no gross sensory deficit Assessment:: Degenerative disc disease lumbar spine with lumbar radiculopathy symptoms Plan:: We will schedule the patient for repeat lumbar epidural steroid injection at L4-L5. The patient did get up to 80% relief with her previous injection for approximately 2 months. We will see her back in the clinic after her injection to reassess her symptoms. She is not on anticoagulation therapy. She has been instructed to contact the clinic if she has any concerns before her next appointment. The patient and I specifically discussed risk factors for COVID19. These risks include, but are not limited to age greater than 60, heart or lung disease, diabetes, immunosuppression, and travel. We also discussed NSAIDs may worsen COVID19 infection or symptoms. Patient should not use NSAIDs to treat COVID19 signs or symptoms. Patient was also informed that any type of corticosteroid of any form (oral or injection) will decrease the patient's immune system response and may increase the likelihood of COVID19 infection [address] symptoms[address]. Mata has reviewed this note and agrees with this plan of care. This note was dictated using voice recognition software and make contain errors or omissions. [facility] History Medical History: Reports:: Anxiety, Depression, Gastroesophageal Reflux Disease(GERD), Lung Disease (sleep apnea-does not use cpap) Denies:: Cancer, Diabetes Mellitus Type 1, Diabetes Mellitus Type 2, Internal Pacemaker, MRSA, Seizures *Have you ever received a pneumonia vaccine?: Yes *Have you received a flu vaccine this season?: Yes Other Medical History: Reports: Arthritis, Fibromyalgia, Sinus Problems, Other. Denies: Blood Transfusion Reaction Laterality Cases: Bilateral: Tonsillectomy, Other Other Surgeries: Yes: Appendectomy, Cholecystectomy, Other (Dental extraction). No: Pacemaker Amputation: No Fractures: No - *Social History Smoking Status: Current every day smoker Tobacco Type: cigarettes # Packs/Day (cigarettes): 1 Alcohol Intake: never Alcohol Intake Frequency:: holidays/special occasions only Substance Use Type: denies use *Occupational Status:: employed Housing: house Household Members: none *T
[2019-09-20 10:34] VITALS: BP 132/85; PULSE 88; RESP 18; TEMP 36.6; O2SAT 99; BMI 23.3
== END ==
PROVIDERS: PCP Nurse Practitioner Family; Visit Provider Clinical Nurse Specialist Family Health
DX: M51.16 Intervertebral disc disorders with radiculopathy, lumbar region (principal)
CPT/HCPCS: 99212

== ENCOUNTER 2019-09-28 13:35 | Day surgery (SDC) | payer MEDICARE, SELFPAY ==
[2019-09-28 13:55] VITALS: BP 102/40; PULSE 88; RESP 18; TEMP 37; O2SAT 98; BMI 23.3
[2019-09-28 14:19] VITALS: BP 142/89; PULSE 85; RESP 18; O2SAT 98
[2019-09-28 14:20] VITALS: BP 148/88; PULSE 89; RESP 18; O2SAT 98
--- NOTE | 2019-09-28 14:24 | P.PCN_ITS ---
- Procedure Date: 09/28/19 Time: 14:24 Anesthesiologist:: Yong Mata MD Complications:: None Pre-procedure Diagnosis:: Degenerative disc disease of lumbar spine with lumbar radiculopathy symptoms Post-procedure Diagnosis:: Same Indications for Procedure:: This patient is a pleasant 58-year-old white female who we have been treating for low back pain with lumbar radiculopathy symptoms. She does have a Nuvectra core stimulator in place. Her stimulator is working very well. He does have some pain in her back and down her legs. We will do a lumbar epidural steroid injection today to help with her pain symptoms. Procedure Details:: Lumbar epidural steroid injection under fluoroscopy Informed consent was obtained and the risk and benefits of the procedure was explained to the patient. The patient was taken to the procedure room. The patient was placed prone on the procedure table. The patient was prepped and draped in sterile fashion. C-arm fluoroscopy was used to view the lumbar spine. Skin and subcutaneous tissues were anesthetized using lidocaine. I placed an 18-gauge epidural needle and advanced into the L4-L5 interspace using fluoros copic guidance and [id number] to air. After confirmation of needle placement in the epidural space with dye I injected 2 mL of lidocaine 1.5% with Depo-Medrol 80 mg. Patient tolerated the procedure well with no complications. Plan and Disposition:: We will follow-up with her in 2 weeks. Will reevaluate her symptoms and plan on repeat lumbar epidural steroid injection under fluoroscopy if needed.
[2019-09-28 14:40] VITALS: BP 102/51; PULSE 85; RESP 18; O2SAT 98
== END 2019-09-28 14:40 | disposition home or self-care (01) ==
LOC: SC.PAINP 13:35
PROVIDERS: PCP Nurse Practitioner Family; Visit Provider Anesthesiology
DX: M51.16 Intervertebral disc disorders with radiculopathy, lumbar region (principal); Z82.49 Family history of ischemic heart disease and other diseases of the circulatory system; G43.909 Migraine, unspecified, not intractable, without status migrainosus; Z90.89 Acquired absence of other organs; Z96.82 Presence of neurostimulator; Z88.0 Allergy status to penicillin; Z88.1 Allergy status to other antibiotic agents; Z79.899 Other long term (current) drug therapy; Z72.0 Tobacco use
CPT/HCPCS: 62323; J1040; Q9966

== ENCOUNTER → 2019-10-08 15:30 | Outpatient (CLI) | payer MEDICARE, SELFPAY ==
--- NOTE | 2019-10-08 15:37 | MM_ITS ---
PROCEDURE: MM DIG SCREENING MAMM BI W/CAD Digital Breast Tomosynthesis Included CLINICAL INDICATION: SCREENING There is a history of breast cancer patient's maternal grandmother and maternal great grandmother. COMPARISON: MG [id number] DIG MAMM-DX UNI A/VW-RT W/CAD from 09/02/2016 MG SCBI MM Dig screening mamm BI w/CAD from 09/08/2017 MG DIG MAMM-SCREEN LETTY from 10/04/2018 TECHNIQUE: Standard CC and MLO images and 3D Tomosynthesis was obtained. R2 CAD reviewed. FINDINGS: Moderate diffuse fibroglandular densities are seen throughout both breasts and the findings are fairly symmetrical bilaterally. There is no suspicious lesion in either breast and no suspicious microcalcifications. IMPRESSION: Fibrofatty parenchyma with no suspicious lesions seen BI-RAD Category: 1 Negative FOLLOW-UP: 1YR 1 Year Follow-up (A letter has been sent to the patient regarding results of the study.) Dictated Dr. Sergio Huff MD 10/09/2019 11:52 Dr. Sergio Hylton MD in [place] 10/09/2019 11:52
== END ==
PROVIDERS: PCP Nurse Practitioner Family; Visit Provider Nurse Practitioner Family
DX: Z12.31 Encounter for screening mammogram for malignant neoplasm of breast (principal)
CPT/HCPCS: 77063; 77067

== ENCOUNTER 2019-10-12 14:43 | Day surgery (SDC) | payer MEDICARE, MEDICAID, SELFPAY ==
[2019-10-12 15:15] VITALS: BP 94/54; PULSE 73; RESP 18; TEMP 36.7; O2SAT 97; BMI 23.3
--- NOTE | 2019-10-12 15:54 | HMH.PMPROC ---
- Procedure Date: 10/12/19 Time: 15:54 Anesthesiologist:: Yong Mata MD Complications:: None Pre-procedure Diagnosis:: Degenerative disc disease of lumbar spine with lumbar radiculopathy symptoms Post-procedure Diagnosis:: Same Indications for Procedure:: Patient is a pleasant 58-year-old white female who been treating for low back pain with lumbar radiculopathy symptoms. She did well with her last lumbar epidural steroid injection she did have some increasing pain down her left leg after the injection which lasted a few days. Overall though she is better we will do a repeat lumbar epidural steroid injection today to help her with her pain symptoms. Procedure Details:: Lumbar epidural steroid injection under fluoroscopy Informed consent was obtained and the risk and benefits of the procedure was explained to the patient. The patient was taken to the procedure room. The patient was placed prone on the procedure table. The patient was prepped and draped in sterile fashion. C-arm fluoroscopy was used to view the lumbar spine. Skin and subcutaneous tissues were anesthetized using lidocaine. I placed an 18-gauge epidural needle and advanced into the L4-L5 interspace using fluoroscopic guidance and [id number] to air. After confirmation of needle placement in the epidural space with dye I injected 2 mL of lidocaine 1.5% with Depo-Medrol 80 mg. Patient tolerated the procedure well with no complications. Plan and Disposition:: We will follow-up with her in 2 weeks. Will reevaluate symptoms at that time.
[2019-10-12 15:55] VITALS: BP 118/78; PULSE 89; RESP 18; O2SAT 99
[2019-10-12 15:57] VITALS: BP 120/78; PULSE 85; RESP 18; O2SAT 98
[2019-10-12 16:04] VITALS: BP 103/59; PULSE 75; RESP 18; O2SAT 97
== END 2019-10-12 16:04 | disposition home or self-care (01) ==
LOC: SC.PAINP 14:45
PROVIDERS: PCP Nurse Practitioner Family; Visit Provider Anesthesiology
DX: M51.16 Intervertebral disc disorders with radiculopathy, lumbar region (principal); G62.9 Polyneuropathy, unspecified; F41.9 Anxiety disorder, unspecified; F32.9 Major depressive disorder, single episode, unspecified; Z90.89 Acquired absence of other organs; Z88.2 Allergy status to sulfonamides; Z88.0 Allergy status to penicillin; Z79.899 Other long term (current) drug therapy; Z96.82 Presence of neurostimulator
CPT/HCPCS: 62323; J1040; Q9966

== ENCOUNTER → 2019-10-15 13:56 | Outpatient (POV) | payer MEDICARE, MEDICAID, SELFPAY | PROVIDERS: Visit Provider Nurse Practitioner Family | DX: Z00.00 Encounter for general adult medical examination without abnormal findings (principal) ==

== ENCOUNTER → 2019-10-29 09:38 | Outpatient (POV) | payer MEDICARE, MEDICAID, SELFPAY ==
[2019-10-29 09:50] VITALS: BP 122/74; PULSE 74; RESP 18; O2SAT 98; BMI 23.0
--- NOTE | 2019-10-29 09:53 | HMH.PAINSOAP ---
[facility] Pain Management SOAP Note Subjective:: Very pleasant 58-year-old white female who presents today for follow-up after lumbar epidural steroid injections. Patient is doing much better. Patient rates her pain a 4-10. Her symptomology is improved 80%. Her only complaint is right-sided radicular pain. Patient does have numbness tingling and pain shooting down through her right side down her leg into her ankle. Patient states that this is constant. Patient I discussed a right transforaminal epidural steroid injection. She like to move forward with this. She is still active continuing a home stretching program. She is also on anti-inflammatories. She is not on any anticoagulation therapy. She still has a neurostimulator which is very beneficial for her. Patient utilizes this regularly. ROS General: no recent weight change, no fever, no sleep disturbances Respiratory: no cough, no shortness of air, no recurring pulmonary infections Cardiovascular/Peripheral Vascular: No chest pain, No palpitations, no edema, no shortness of breath. Gastrointestinal: no new onset incontinence, normal bowel movements reported Genitourinary: no new onset incontinence Musculoskeletal: Back pain, right leg pain Psychiatric: normal mood/ affect Neurological: [denies new onset weakness in extremities], [denies new onset balance issues] Objective:: Physical Exam General: Alert and oriented x3, no acute distress, pleasant and cooperative, [on room air] Lungs: Resps E/U, Symmetrical chest expansion, Eyes: PERRL Musculoskeletal: Flexion and extension of lumbar spine somewhat guarded secondary to pain, deep tendon reflexes normal, strength in upper and lower extremities [5/5], slightly antalgic gait noted Neurological: speech clear, tool and die manager equal, no gross sensory deficits Assessment:: Degenerative disc disease lumbar spine lumbar radiculopathy Plan:: A right transforaminal L4-L5 lumbar epidural steroid injection. I will follow-up with her afterwards reassess her symptoms at that time she has been instructed to call the office if she has any issues prior to her next appointment. Dr. Mata has reviewed this note and agrees with this plan of care. This note was dictated using voice recognition software and may contain errors or omissions [facility] History I have reviewed the patient's past medical history: Yes Medical History: Reports:: Anxiety, Depression, Gastroesophageal Reflux Disease(GERD), Lung Disease (sleep apnea-does not use cpap) Denies:: Cancer, Diabetes Mellitus Type 1, Diabetes Mellitus Type 2, Internal Pacemaker, MRSA, Seizures *Have you ever received a pneumonia vaccine?: Yes *Have you received a flu vaccine this season?: Yes Other Medical History: Reports: Arthritis, Fibromyalgia, Sinus Problems, Other. Denies: Blood Transfusion Reaction Laterality Cases: Bilateral: Tonsillectomy, Other Other Surgeries: Yes: Appendectomy, Cholecystectomy, Other (Dental extraction). No: Pacemaker Amputation: No Fractures: No - *Social History Smoking Status: Current every day smoker Tobacco Type: cigarettes # Packs/Day (cigarettes): 1 Alcohol Intake: never Alcohol Intake Frequency:: holidays/special occasions only Substance Use Type: denies use *Occupational Status:: other Housing: house Household Members: none *Travel in the last 8 weeks: None - Psychiatric History Pschychiatric History:: Reports:: Anxiety, Depression Family Hx:: Cancer, Diabetes, Hypertension, Stroke
== END ==
PROVIDERS: PCP Nurse Practitioner Family; Visit Provider Clinical Nurse Specialist Family Health
DX: M51.16 Intervertebral disc disorders with radiculopathy, lumbar region (principal)
CPT/HCPCS: 99212

== ENCOUNTER → 2019-12-10 09:25 | Outpatient (POV) | payer MEDICARE, MEDICAID, SELFPAY ==
[2019-12-10 09:31] VITALS: BP 125/74; PULSE 74; RESP 18; TEMP 36.8; O2SAT 98; BMI 23.0
--- NOTE | 2019-12-10 09:48 | HMH.PAINSOAP ---
[facility] Pain Management SOAP Note Subjective:: Patient is a pleasant 59-year-old white female who presents today for follow-up. Patient currently rating her pain a 4 out of 10 mostly in her back and down her legs. Patient has pain radiating down her left leg. Patient's not on any anticoagulation therapy. Patient does well with epidural steroid injections getting up to 80% relief for 3 months. Patient is interested in repeating this given the efficacy of it. Patient still active continuing a home stretching program. She is also on anti-inflammatories. Patient has a neurostimulator which is very beneficial for her and she utilizes it regularly. ROS General: no recent weight change, no fever, no sleep disturbances Respiratory: no cough, no shortness of air, no recurring pulmonary infections Cardiovascular/Peripheral Vascular: No chest pain, No palpitations, no edema, no shortness of breath. Gastrointestinal: no new onset incontinence, normal bowel movements reported Genitourinary: no new onset incontinence Musculoskeletal: Back pain, leg pain Psychiatric: normal mood/ affect Neurological: [denies new onset weakness in extremities], [denies new onset balance issues] Objective:: Physical Exam General: Alert and oriented x3, no acute distress, pleasant and cooperative, [on room air] Lungs: Resps E/U, Symmetrical chest expansion, Eyes: PERRL Musculoskeletal: Flexion and extension of lumbar spine somewhat guarded secondary to pain, deep tendon reflexes normal, strength in upper and lower extremities [5/5], slightly antalgic gait noted Neurological: speech clear, river crossing supervisor equal, no gross sensory deficits Assessment:: Degenerative disc disease lumbar spine with lumbar radiculopathy Plan:: We will set her up for L4-L5 lumbar epidural steroid injection given the efficacy of this in the past I do believe it would benefit her. I will follow-up with her after her injection reassess her symptoms at that time she has been instructed to call the office if she has any issues prior to her next appointment. Dr. Mata has reviewed this note and agrees with this plan of care. This note was dictated using voice recognition software and may contain errors or omissions [facility] History I have reviewed the patient's past medical history: Yes Medical History: Reports:: Anxiety, Depression, Gastroesophageal Reflux Disease(GERD), Lung Disease (sleep apnea-does not use cpap) Denies:: Cancer, Diabetes Mellitus Type 1, Diabetes Mellitus Type 2, Internal Pacemaker, MRSA, Seizures *Have you ever received a pneumonia vaccine?: Yes *Have you received a flu vaccine this season?: Yes Other Medical History: Reports: Arthritis, Fibromyalgia, Sinus Problems, Other. Denies: Blood Transfusion Reaction Laterality Cases: Bilateral: Tonsillectomy, Other Other Surgeries: Yes: Appendectomy, Cholecystectomy, Other (Dental extraction). No: Pacemaker Amputation: No Fractures: No - *Social History Smoking Status: Current every day smoker Tobacco Type: cigarettes # Packs/Day (cigarettes): 1 Alcohol Intake: never Alcohol Intake Frequency:: holidays/special occasions only Substance Use Type: denies use *Occupational Status:: other Housing: house Household Members: none *Travel in the last 8 weeks: None - Psychiatric History Pschychiatric History:: Reports:: Anxiety, Depression Family Hx:: Cancer, Diabetes, Hypertension, Stroke
== END ==
PROVIDERS: PCP Nurse Practitioner Family; Visit Provider Clinical Nurse Specialist Family Health
DX: M51.16 Intervertebral disc disorders with radiculopathy, lumbar region (principal)
CPT/HCPCS: 99212

== ENCOUNTER 2019-12-21 14:05 | Day surgery (SDC) | payer MEDICARE, MEDICAID, SELFPAY ==
[2019-12-21 15:54] VITALS: BP 113/40; PULSE 77; RESP 18; TEMP 36.4; O2SAT 99; BMI 23.3
[2019-12-21 16:09] VITALS: BP 135/85; PULSE 85; RESP 18; O2SAT 98
[2019-12-21 16:10] VITALS: BP 139/74; PULSE 85; RESP 18; O2SAT 98
[2019-12-21 16:20] VITALS: BP 120/72; PULSE 79; RESP 18; O2SAT 99
--- NOTE | 2019-12-21 16:37 | HMH.PMPROC ---
- Procedure Date: 12/21/19 Time: 16:38 Anesthesiologist:: Yong Mata MD Complications:: None Pre-procedure Diagnosis:: Degenerative disease of lumbar spine with lumbar radiculopathy symptoms Post-procedure Diagnosis:: Same Indications for Procedure:: Patient is a pleasant 59-year-old white female who we are treating for low back pain with lumbar radiculopathy symptoms. She has increasing pain in her back and down her legs. She does have increasing pain in her back. She does have a spinal cord stimulator in place this is helping with her leg pain. She has gotten good benefit from injections in the past. We will do repeat lumbar pleural steroid injection under fluoroscopy today. Procedure Details:: Lumbar epidural steroid injection under fluoroscopy Informed consent was obtained and the risk and benefits of the procedure was explained to the patient. The patient was taken to the procedure room. The patient was placed prone on the procedure table. The patient was prepped and draped in sterile fashion. C-arm fluoroscopy was used to view the lumbar spine. Skin and subcutaneous tissues were anesthetized using lidocaine. I placed an 18-gauge epidural needle and advanced into the L4-L5 interspace using fluoroscopic guidance and [id number] to air. After confirmation of needle placement in the epidural space with dye I injected 2 mL of lidocaine 1.5% with Depo-Medrol 80 mg. Patient tolerated the procedure well with no complications. Plan and Disposition:: We will follow-up with her in 2 weeks. Will reevaluate symptoms at that time.
== END 2019-12-21 16:21 | disposition home or self-care (01) ==
LOC: SC.PAINP 14:06
PROVIDERS: PCP Nurse Practitioner Family; Visit Provider Anesthesiology
DX: M51.16 Intervertebral disc disorders with radiculopathy, lumbar region (principal); K21.9 Gastro-esophageal reflux disease without esophagitis; F32.9 Major depressive disorder, single episode, unspecified; Z72.0 Tobacco use; F41.9 Anxiety disorder, unspecified
CPT/HCPCS: 62323; J1040; Q9966

== ENCOUNTER → 2020-01-17 14:30 | Outpatient (POV) | payer MEDICARE, MEDICAID, SELFPAY ==
[2020-01-17 14:39] VITALS: BP 121/87; PULSE 85; RESP 18; TEMP 36.4; O2SAT 98; BMI 23.3
--- NOTE | 2020-01-17 14:55 | HMH.PAINSOAP ---
[facility] Pain Management SOAP Note Subjective:: You can patient is a 59-year-old white female who presents today for follow-up after a lumbar epidural steroid injection. She has been treated for chronic low back pain with lumbar radiculopathy symptoms. Patient recently underwent an injection and says that she got about 80% relief. Her pain is a 2 out of 10 today. She also has a spinal cord stimulator in place. Patient says she is having pain around the incision site. She also gets tramadol. She says she does not take it daily, however, she takes it as needed. She would like a refill on her medication today. She would also like some medication for the incisional pain. Review of Systems General: No recent weight changes, no fever, no sleep disturbances Respiratory: No cough, no shortness of air, no recurring pulmonary infections Cardiovascular/peripheral vascular: No chest pain, no palpitations, no edema, no shortness of breath Gastrointestinal: No new onset incontinence, normal bowel movements reported Genitourinary: No new onset incontinence Musculoskeletal: Low back pain Psychiatric: Normal mood/affect Neurological: [Denies weakness in extremities], [denies balance issues] Objective:: Physical exam General: Alert and oriented x3, no acute distress, pleasant and cooperative, [on room air] Lungs: Respirations even and unlabored, symmetrical chest expansion Eyes: PERRL Musculoskeletal: Flexion and extension of lumbar spine somewhat guarded secondary to pain, deep tendon reflexes normal, strength in upper and lower extremities [5/5], [abnormal gait noted] Neurological: Speech clear, mold designer equal, no gross sensory deficit Assessment:: Degenerative disc disease lumbar spine with lumbar radiculopathy symptoms Plan:: We will refill the patient's tramadol 50 mg 1 tablet p.o. 3 times daily. We will give her 3 months of medication. We will also order the patient compounding cream for her incisional pain. We will plan to see her back in 3 months to reassess her symptoms. She has been instructed to contact clinic if she has any concerns before next appointment. The patient and I specifically discussed risk factors for COVID19. These risks include, but are not limited to age greater than 60, heart or lung disease, diabetes, immunosuppression, and travel. We also discussed NSAIDs may worsen COVID19 infection or symptoms. Patient should not use NSAIDs to treat COVID19 signs or symptoms. Patient was also informed that any type of corticosteroid of any form (oral or injection) will decrease the patient's immune system response and may increase the likelihood of COVID19 infection [address] Mata has reviewed this note and agrees with this plan of care. This note was dictated using voice recognition software and make contain errors or omissions. Patient has been prescribed a controlled substance after being counseled on the medication, medication safety, and possible side effects. [facility] report has been obtained and reviewed prior to prescription and found to be appropriate. Opioid contract was reviewed and signed by the patient, and that they have agreed to all of the terms set forth by our compliance program. [facility] History I have reviewed the patient's past medical history: Yes Medical History: Reports:: Anxiety, Depression, Gastroesophageal Reflux Disease(GERD), Lung Disease (sleep apnea-does not use cpap) Denies:: Cancer, Diabetes Mellitus Type 1, Diabetes Mellitus Type 2, Internal Pacemaker, MRSA, Seizures *Have you ever received a pneumonia vaccine?: Yes *Have you received a flu vaccine this season?: Yes Other Medical History: Reports: Arthritis, Fibromyalgia, Sinus Problems, Other. Denies: Blood Transfusion Reaction Laterality Cases: Bilateral: Tonsillectomy, Other Other Surgeries: Yes: Appendectomy, Cholecystectomy, Colostomy, Sinus Surgery, Other (Dental extraction). No: Pacemaker Amputation: No Fractures: No - *Social
== END ==
PROVIDERS: PCP Nurse Practitioner Family; Visit Provider Clinical Nurse Specialist Family Health
DX: M51.16 Intervertebral disc disorders with radiculopathy, lumbar region (principal)
CPT/HCPCS: 99212

== ENCOUNTER → 2020-05-08 11:22 | Outpatient (POV) | payer MEDICARE, MEDICAID, SELFPAY ==
[2020-05-08 12:05] VITALS: BP 125/71; PULSE 88; RESP 18; O2SAT 98; BMI 23.0
--- NOTE | 2020-05-08 12:34 | HMH.PAINSOAP ---
[facility] Pain Management SOAP Note Subjective:: Is a pleasant 59-year-old white female who presents today for follow-up. Patient is requesting a lumbar epidural steroid injection. She had one several months ago. She gets 80% relief up to 3 months with these injection she would like to repeat this her pain is beginning to return she rates it a 7 out of 10. She is also on tramadol 50 mg 1 p.o. 3 times daily. She denies any side effects to this. She she takes it only as needed. [facility] #[id number] reviewed and appropriate. Patient's not on any anticoagulation therapy. ROS General: no recent weight change, no fever, no sleep disturbances Respiratory: no cough, no shortness of air, no recurring pulmonary infections Cardiovascular/Peripheral Vascular: No chest pain, No palpitations, no edema, no shortness of breath. Gastrointestinal: no new onset incontinence, normal bowel movements reported Genitourinary: no new onset incontinence Musculoskeletal: Back pain, leg pain Psychiatric: normal mood/ affect, Neurological: [denies new onset weakness in extremities], [denies new onset balance issues] Objective:: Physical Exam General: Alert and oriented x3, no acute distress, pleasant and cooperative, [on room air] Lungs: Resps E/U, Symmetrical chest expansion, Eyes: PERRL Musculoskeletal: Flexion and extension of lumbar spine somewhat guarded secondary to pain, deep tendon reflexes normal, strength in upper and lower extremities [5/5], [abnormal gait noted] Neurological: speech clear, iron melter equal, no gross sensory deficits Assessment:: Degenerative disc disease lumbar spine lumbar radiculopathy, back pain Plan:: We will set the patient up for an L4-L5 lumbar epidural steroid injection given the efficacy of this in the past I do believe it would benefit her. I will follow-up with her reassess her symptoms after this. She has been instructed to call the office if she has any issues prior to her next appointment we will continue her tramadol 50 mg 1 p.o. [address] times daily as needed. Dr. Mata has reviewed this note and agrees with this plan of care. This note was dictated using voice recognition software and may contain errors or omissions [facility] History I have reviewed the patient's past medical history: Yes Medical History: Reports:: Anxiety, Depression, Gastroesophageal Reflux Disease(GERD), Lung Disease (sleep apnea-does not use cpap) Denies:: Cancer, Diabetes Mellitus Type 1, Diabetes Mellitus Type 2, Internal Pacemaker, MRSA, Seizures *Have you ever received a pneumonia vaccine?: Yes *Have you received a flu vaccine this season?: Yes Other Medical History: Reports: Arthritis, Fibromyalgia, Sinus Problems, Other. Denies: Blood Transfusion Reaction Laterality Cases: Bilateral: Tonsillectomy, Other Other Surgeries: Yes: Appendectomy, Cholecystectomy, Colostomy, Sinus Surgery, Other (Dental extraction). No: Pacemaker Amputation: No Fractures: No - *Social History Smoking Status: Current every day smoker Tobacco Type: cigarettes # Packs/Day (cigarettes): 1 Alcohol Intake: never Alcohol Intake Frequency:: holidays/special occasions only Substance Use Type: denies use *Occupational Status:: other Housing: house Household Members: none *Travel in the last 8 weeks: None - Psychiatric History Pschychiatric History:: Reports:: Anxiety, Depression Family Hx:: Cancer, Diabetes, Hypertension, Stroke
== END ==
PROVIDERS: PCP Nurse Practitioner Family; Visit Provider Clinical Nurse Specialist Family Health
DX: M51.16 Intervertebral disc disorders with radiculopathy, lumbar region (principal)
CPT/HCPCS: 99212; G0463

== ENCOUNTER 2020-05-16 10:16 | Day surgery (SDC) | payer MEDICARE, MEDICAID, SELFPAY ==
[2020-05-16 10:48] VITALS: BP 124/39; PULSE 80; RESP 18; TEMP 36.6; O2SAT 98; BMI 23.0
[2020-05-16 11:45] VITALS: BP 122/78; PULSE 79; RESP 18
[2020-05-16 11:46] VITALS: BP 125/79; PULSE 89; RESP 18; O2SAT 99
--- NOTE | 2020-05-16 11:52 | HMH.PMPROC ---
- Procedure Date: 05/16/20 Time: 11:52 Anesthesiologist:: Yong Mata MD Complications:: None Pre-procedure Diagnosis:: Degenerative disc disease of lumbar spine with lumbar radiculopathy symptoms Post-procedure Diagnosis:: Same Indications for Procedure:: This patient is a pleasant 59-year-old white female who we are treating for low back pain with lumbar radiculopathy symptoms. She is done very well with previous lumbar epidural steroid injections. She is doing well with her spinal cord stimulator. Her last injection was approximately 5 months ago. Pain is just now starting to return in her back and legs. She presents for lumbar epidural steroid injection today. Procedure Details:: Lumbar epidural steroid injection under fluoroscopy Informed consent was obtained and the risk and benefits of the procedure was explained to the patient. The patient was taken to the procedure room. The patient was placed prone on the procedure table. The patient was prepped and draped in sterile fashion. C-arm fluoroscopy was used to view the lumbar spine. Skin and subcutaneous tissues were anesthetized using lidocaine. I placed an 18-gauge epidural needle and advanced into the L4-L5 interspace using fluoroscopic guidance and [id number] to air. After confirmation of needle placement in the epidural space with dye I injected 2 mL of lidocaine 1.5% with Depo-Medrol 80 mg. Patient tolerated the procedure well with no complications. Plan and Disposition:: We will follow-up with her in 2 weeks. Will reevaluate symptoms at that time.
[2020-05-16 12:01] VITALS: BP 120/40; PULSE 75; RESP 18; O2SAT 98
== END 2020-05-16 12:07 | disposition home or self-care (01) ==
LOC: SC.PAINP 10:17
PROVIDERS: PCP Nurse Practitioner Family; Visit Provider Anesthesiology
DX: M51.16 Intervertebral disc disorders with radiculopathy, lumbar region (principal); I10 Essential (primary) hypertension; Z88.0 Allergy status to penicillin; Z88.2 Allergy status to sulfonamides; K21.9 Gastro-esophageal reflux disease without esophagitis; F41.9 Anxiety disorder, unspecified; F32.9 Major depressive disorder, single episode, unspecified; G43.909 Migraine, unspecified, not intractable, without status migrainosus
CPT/HCPCS: 62323; J1040; Q9966

== ENCOUNTER → 2020-06-12 11:27 | Outpatient (POV) | payer MEDICARE, MEDICAID, SELFPAY ==
[2020-06-12 11:55] VITALS: BP 121/62; PULSE 62; RESP 18; O2SAT 98; BMI 23.0
--- NOTE | 2020-06-12 12:31 | P.CONS_ITS ---
[facility] Pain Management SOAP Note Subjective:: Patient is a pleasant 59-year-old white female who presents today for follow-up after lumbar epidural steroid injection she is gotten over 80% relief of her symptomology overall doing well. Patient has about 3 months relief with these injections. She would like to repeat this in July. She rates her pain today a 2 out of 10. ROS General: no recent weight change, no fever, no sleep disturbances Respiratory: no cough, no shortness of air, no recurring pulmonary infections Cardiovascular/Peripheral Vascular: No chest pain, No palpitations, no edema, no shortness of breath. Gastrointestinal: no new onset incontinence, normal bowel movements reported Genitourinary: no new onset incontinence Musculoskeletal: Back pain, leg pain Psychiatric: normal mood/ affect Neurological: [denies new onset weakness in extremities], [denies new onset balance issues] Objective:: Physical Exam General: Alert and oriented x3, no acute distress, pleasant and cooperative, [on room air] Lungs: Resps E/U, Symmetrical chest expansion, Eyes: PERRL Musculoskeletal: Flexion and extension of lumbar spine somewhat guarded secondary to pain, deep tendon reflexes normal, strength in upper and lower extremities [5/5], slightly antalgic gait noted Neurological: speech clear, building and construction manager equal, no gross sensory deficits Assessment:: Degenerative disc disease lumbar spine lumbar radiculopathy, back pain Plan:: we will schedule the patient for another L4-L5 lumbar epidural steroid injection in several months. She has been instructed to call the office if she has any issues prior to her next appointment.Dr. Mata has reviewed this note and agrees with this plan of care. This note was dictated using voice recognition software and may contain errors or omissions [facility] History I have reviewed the patient's past medical history: Yes Medical History: Reports:: Anxiety, Depression, Gastroesophageal Reflux Disease(GERD), Lung Disease (sleep apnea-does not use cpap) Denies:: Cancer, Diabetes Mellitus Type 1, Diabetes Mellitus Type 2, Internal Pacemaker, MRSA, Seizures *Have you ever received a pneumonia vaccine?: Yes *Have you received a flu vaccine this season?: Yes Other Medical History: Reports: Arthritis, Fibromyalgia, Sinus Problems, Other. Denies: Blood Transfusion Reaction Laterality Cases: Bilateral: Tonsillectomy, Other Other Surgeries: Yes: Appendectomy, Cholecystectomy, Colostomy, Hysterectomy- Total, Sinus Surgery, Other (Dental extraction). No: Pacemaker Amputation: No Fractures: No - *Social History Smoking Status: Former smoker Tobacco Type: cigarettes # Packs/Day (cigarettes): 1 Alcohol Intake: never Alcohol Intake Frequency:: holidays/special occasions only Substance Use Type: denies use *Occupational Status:: other Housing: house Household Members: none *Travel in the last 8 weeks: None - Psychiatric History Pschychiatric History:: Reports:: Anxiety, Depression Family Hx:: Cancer, Diabetes, Hypertension, Stroke
== END ==
PROVIDERS: PCP Nurse Practitioner Family; Visit Provider Clinical Nurse Specialist Family Health
DX: M51.16 Intervertebral disc disorders with radiculopathy, lumbar region (principal)
CPT/HCPCS: 99212; G0463

== ENCOUNTER 2020-07-15 15:53 | Emergency (ER) | payer MEDICARE, MEDICAID, SELFPAY ==
[2020-07-15 15:54] VITALS: BP 119/83; PULSE 107; RESP 18; TEMP 36.5; O2SAT 96; BMI 23.0
--- NOTE | 2020-07-15 15:57 | HMH.EDGENADL ---
ED Disposition Clinical Impression: Acute exacerbation of chronic low back pain, Lumbar back pain Disposition: Home, Self-Care Condition on Discharge: Fair Additional Instructions: You have been evaluated for back pain. Please take your home medications as prescribed. Take Robaxin for muscle spasms, you cannot drive when using this medication. Take prednisone. Try MiraLAX or fiber for constipation. Follow-up with Dr. Mata in 2 days as scheduled. Return to the emergency department at once if you have any new or worsening pain, fevers, vomiting, dysuria. Prescriptions: methocarbamoL [Methocarbamol] 500 mg PO Q8 PRN 4 Days #12 tab PRN Reason: Muscle Spasm Transmission Status: Pending to [facility] predniSONE [Prednisone 20mg Tab] 20 mg PO DAILY #5 tab Transmission Status: Pending to [facility] Referrals: Naya Goodwin [Primary Care Provider] - Time of Disposition: 16:14 - Critical Care Critical Care Time: No Attestation: On , the high probability of a clinically significant, sudden or life threatening deterioration of the following system(s) required my full and direct attention, intervention and personal management. The time I documented below is in addition to time spent performing reported procedures but includes the following listed in this critical care notation. Medical Decision Making - Medical Records Medical records reviewed: Yes: I reviewed the patient's medical records. - [place] Inquiry Pt receiving controlled substance: No Orders (Tests/Meds): ED MEDICATIONS Discontinued Medications Generic Name Dose Route Start Last Admin Trade Name Freq PRN Reason Stop Dose Admin Methocarbamol 500 mg 07/15/20 16:04 Methocarbamol 500mg Tablet PO 07/15/20 16:05 ONCE ONE Oxycodone HCl 5 mg 07/15/20 16:04 Oxycodone 5mg Immediate Release Tablet PO 07/15/20 16:05 ONCE ONE Medical Decision Narrative: In summary this is a 59-year-old female with history of severe lumbar disc disease presenting to the emergency department with back pain. Patient clinically stable on arrival. Vital signs within normal limits. She is very reasonable. Simply states her back feels so stiff that it is difficult to walk, sit, lie down with comfort. No red flag symptoms for cord compression like urinary symptoms or numbness in the genital area. Plan to treat her symptoms in the emergency department. Patient given 500 mg Robaxin [address] 02/2019 IMPRESSION: Multilevel degenerative disc and facet disease as described with greatest neural impingement appearing to be central canal stenosis and bilateral foraminal stenosis L4-5 where there is anterior subluxation of L4 on L5. Bilateral sacroiliitis. Spinal stimulator apparatus is noted. On reassessment, after medication she was feeling somewhat better. Continued to have pain, but not nearly as bad as when she presented. Counseled her that I do not think that a narcotic prescription is the best idea at this time. She has a pain contract, I worry that she will be fired from a contract. She was agreeable with plan for prescriptions for Robaxin and 5 days of prednisone. She will follow-up in [address] Mata. Given strict return precautions. Stable for discharge. General Adult HPI - General Stated complaint: back pain Time Seen by Provider: 07/15/20 16:07 - History of Present Illness HPI narrative: 59-year-old female presenting to the emergency department with back pain. Pain is located in the mid low lumbar spine. It is described as a tightness, squeezing sensation. Feels like her low back is frozen. She having difficulty bending and twisting. Has been constipated. Has not had a bowel movement since Tuesday. This is abnormal for her. No fevers or chills. No numbness, weakness, tingling in her genital area. No lower extremity numbness or weakness. She suffers from left-sided sciatica. This is the same
[2020-07-15 16:11] VITALS: PULSE 92; O2SAT 96
[2020-07-15 16:30] VITALS: BP 106/77; PULSE 99; RESP 18; O2SAT 96
[2020-07-15 16:56] VITALS: BP 97/73; PULSE 89; O2SAT 96
[2020-07-15 18:03] VITALS: BP 111/71; PULSE 86; RESP 16; TEMP 37.1; O2SAT 96
== END 2020-07-15 18:06 | disposition home or self-care (01) ==
PROVIDERS: Emergency Provider Emergency Medicine; PCP Nurse Practitioner Family
DX: M54.5 Low back pain (principal); K21.9 Gastro-esophageal reflux disease without esophagitis; M79.7 Fibromyalgia; Z87.891 Personal history of nicotine dependence; Z79.899 Other long term (current) drug therapy
CPT/HCPCS: 99281

== ENCOUNTER → 2020-07-17 10:34 | Outpatient (POV) | payer MEDICARE, MEDICAID, SELFPAY ==
--- NOTE | 2020-07-17 12:44 | P.CONS_ITS ---
[facility] Pain Management SOAP Note Subjective:: Patient is a pleasant 59-year-old white female who presents today for follow-up. Patient is having a flare in her pain rating it a 10 out of 10. She did have to go to the emergency room where she received prednisone 20 mg daily and methocarbamol this has not helped. Patient states her pain is in her low back she is mostly complaining of pain on the left side. ROS General: no recent weight change, no fever, no sleep disturbances Respiratory: no cough, no shortness of air, no recurring pulmonary infections Cardiovascular/Peripheral Vascular: No chest pain, No palpitations, no edema, no shortness of breath. Gastrointestinal: no new onset incontinence, normal bowel movements reported Genitourinary: no new onset incontinence Musculoskeletal: Back pain Psychiatric: normal mood/ affect Neurological: [denies new onset weakness in extremities], [denies new onset balance issues] Objective:: Physical Exam General: Alert and oriented x3, no acute distress, pleasant and cooperative, [on room air] Lungs: Resps E/U, Symmetrical chest expansion, [CTA bilateral] Eyes: PERRL Musculoskeletal: Flexion and extension of lumbar spine somewhat guarded secondary to pain, deep tendon reflexes normal, strength in upper and lower extremities [5/5], [abnormal gait noted] Neurological: speech clear, manufacturer's representative equal, no gross sensory deficits Assessment:: Degenerative disc disease lumbar spine lumbar radiculopathy and back pain Plan:: We will follow up with the patient on Tuesday and reassess her symptoms at that time we will increase her prednisone to 40 mg/day. We will also prescribe her [place] 5 mg 1 p.o. 3 times daily as needed 20 pills. She has been instructed to call the office if she has any issues prior to her next appointment. Dr. Mata has reviewed this note and agrees with this plan of care. This note was dictated using voice recognition software and may contain errors or omissions dispensing [facility] History I have reviewed the patient's past medical history: Yes Medical History: Reports:: Anxiety, Depression, Gastroesophageal Reflux Disease(GERD), Lung Disease (sleep apnea-does not use cpap) Denies:: Cancer, Diabetes Mellitus Type 1, Diabetes Mellitus Type 2, Internal Pacemaker, MRSA, Seizures *Have you ever received a pneumonia vaccine?: No *Have you received a flu vaccine this season?: No Other Medical History: Reports: Arthritis, Fibromyalgia, Sinus Problems, Other. Denies: Blood Transfusion Reaction Laterality Cases: Bilateral: Tonsillectomy, Other Other Surgeries: Yes: Appendectomy, Cholecystectomy, Colostomy, Hysterectomy- Total, Sinus Surgery, Other (Dental extraction). No: Pacemaker Amputation: No Fractures: No - *Social History Smoking Status: Former smoker Tobacco Type: cigarettes # Packs/Day (cigarettes): 1 Alcohol Intake: never Alcohol Intake Frequency:: holidays/special occasions only Substance Use Type: denies use *Occupational Status:: other Housing: house Household Members: none *Travel in the last 8 weeks: None - Psychiatric History Pschychiatric History:: Reports:: Anxiety, Depression Family Hx:: Cancer, Diabetes, Hypertension, Stroke
== END ==
PROVIDERS: Visit Provider Clinical Nurse Specialist Family Health
DX: M51.16 Intervertebral disc disorders with radiculopathy, lumbar region (principal)
CPT/HCPCS: 99212; G0463

== ENCOUNTER → 2020-07-21 09:13 | Outpatient (POV) | payer MEDICARE, MEDICAID, SELFPAY ==
[2020-07-21 09:20] VITALS: BP 137/73; PULSE 94; RESP 18; O2SAT 97; BMI 23.0
--- NOTE | 2020-07-21 09:28 | HMH.PAINSOAP ---
[facility] Pain Management SOAP Note Subjective:: Is a pleasant 59-year-old white female who presents today for follow-up. Patient is doing better at this time rating her pain a 4 out of 10. She still having low back and leg pain. She is interested in an epidural steroid injection she has had these in the past with good relief. Patient gets up to 80% relief for 3 months. She would like to repeat that she is not on any anticoagulation therapy. ROS General: no recent weight change, no fever, no sleep disturbances Respiratory: no cough, no shortness of air, no recurring pulmonary infections Cardiovascular/Peripheral Vascular: No chest pain, No palpitations, no edema, no shortness of breath. Gastrointestinal: no new onset incontinence, normal bowel movements reported Genitourinary: no new onset incontinence Musculoskeletal: Back pain, leg pain Psychiatric: normal mood/ affect Neurological: [denies new onset weakness in extremities], [denies new onset balance issues] Objective:: Physical Exam General: Alert and oriented x3, no acute distress, pleasant and cooperative, [on room air] Lungs: Resps E/U, Symmetrical chest expansion, Eyes: PERRL Musculoskeletal: Flexion and extension of lumbar spine somewhat guarded secondary to pain, deep tendon reflexes normal, strength in upper and lower extremities [5/5], antalgic gait noted Neurological: speech clear, agent equal, no gross sensory deficits Assessment:: Degenerative disc disease lumbar spine lumbar radiculopathy and back pain Plan:: We will follow up with the patient and set her up for an L4-L5 lumbar epidural steroid injection. Patient's been instructed to call the office if she has any issues prior to her next appointment. I will follow up with her afterwards reassess her symptoms at that time. Dr. Mata has reviewed this note and agrees with this plan of care. This note was dictated using voice recognition software and may contain errors or omissions [facility] History I have reviewed the patient's past medical history: Yes Medical History: Reports:: Anxiety, Depression, Gastroesophageal Reflux Disease(GERD), Lung Disease (sleep apnea-does not use cpap) Denies:: Cancer, Diabetes Mellitus Type 1, Diabetes Mellitus Type 2, Internal Pacemaker, MRSA, Seizures *Have you ever received a pneumonia vaccine?: No *Have you received a flu vaccine this season?: Yes Other Medical History: Reports: Arthritis, Fibromyalgia, Sinus Problems, Other. Denies: Blood Transfusion Reaction Laterality Cases: Bilateral: Tonsillectomy, Other Other Surgeries: Yes: Appendectomy, Cholecystectomy, Colostomy, Hysterectomy-Total, Sinus Surgery, Other (Dental extraction). No: Pacemaker Amputation: No Fractures: No - *Social History Smoking Status: Former smoker Tobacco Type: cigarettes # Packs/Day (cigarettes): 1 Alcohol Intake: never Alcohol Intake Frequency:: holidays/special occasions only Substance Use Type: denies use *Occupational Status:: employed Housing: house Household Members: none *Travel in the last 8 weeks: None - Psychiatric History Pschychiatric History:: Reports:: Anxiety, Depression Family Hx:: Cancer, Diabetes, Hypertension, Stroke
== END ==
PROVIDERS: Visit Provider Clinical Nurse Specialist Family Health
DX: M51.16 Intervertebral disc disorders with radiculopathy, lumbar region (principal)
CPT/HCPCS: 99212; G0463

== ENCOUNTER → 2020-08-01 14:07 | Outpatient (POV) | payer MEDICARE, MEDICAID, SELFPAY ==
[2020-08-01 14:23] VITALS: BP 113/65; PULSE 84; RESP 18; O2SAT 98; BMI 23.8
--- NOTE | 2020-08-01 14:43 | HMH.PAINSOAP ---
[facility] Pain Management SOAP Note Subjective:: Patient is a pleasant 59-year-old white female who we are treating for low back pain with lumbar radicular symptoms. She has been denied for lumbar epidural steroid injection. She has had 4 in the last 12 months. They have given her at least 2 to 3 months relief. Her pain is back now. Most of her pain is in the back. She has primarily axial pain. She does not have much in the way of radicular symptoms. She is currently on [place] 5 mg 1 tablet 3 times a day. This is helping significantly however is not long-lasting. She has failed all previous conservative therapy to give her long-term relief including injections, oral medications and physical therapy. I do believe she would be a good candidate for intrathecal therapy. We will seek approval for intrathecal pump trial. We will also get her an appointment with Dr. Moraes for neurosurgical evaluation. Objective:: Alert and oriented x3 no acute distress. Patient does have an antalgic gait. Motor strength of lower extremities is 5/5. There is no gross sensory deficit. She has tenderness over the lower lumbar spine. Assessment:: Degenerative disc disease of lumbar spine with lumbar radiculopathy symptoms Plan:: We will have her see Dr. Moraes for neurosurgical evaluation. We will keep her on her [place] 5 mg 1 tablet 3 times a day. This will be temporary until we get definitive injective treatment. We will seek approval for intrathecal pump trial. Prior to pump trial we will wean her off her [place]. [facility] History Medical History: Reports:: Anxiety, Depression, Gastroesophageal Reflux Disease(GERD), Lung Disease (sleep apnea-does not use cpap) Denies:: Cancer, Diabetes Mellitus Type 1, Diabetes Mellitus Type 2, Internal Pacemaker, MRSA, Seizures *Have you ever received a pneumonia vaccine?: No *Have you received a flu vaccine this season?: Yes Other Medical History: Reports: Arthritis, Fibromyalgia, Sinus Problems, Other. Denies: Blood Transfusion Reaction Laterality Cases: Bilateral: Tonsillectomy, Other Other Surgeries: Yes: Appendectomy, Cholecystectomy, Colostomy, Hysterectomy-Total, Sinus Surgery, Other (Dental extraction). No: Pacemaker Amputation: No Fractures: No - *Social History Smoking Status: Former smoker Tobacco Type: cigarettes # Packs/Day (cigarettes): 1 Alcohol Intake: never Alcohol Intake Frequency:: holidays/special occasions only Substance Use Type: denies use *Occupational Status:: other Housing: house Household Members: none *Travel in the last 8 weeks: None - Psychiatric History Pschychiatric History:: Reports:: Anxiety, Depression Family Hx:: Cancer, Diabetes, Hypertension, Stroke
== END ==
PROVIDERS: PCP Nurse Practitioner Family; Visit Provider Anesthesiology
DX: M51.16 Intervertebral disc disorders with radiculopathy, lumbar region (principal)
CPT/HCPCS: 99212; G0463

== ENCOUNTER → 2020-09-25 11:48 | Outpatient (POV) | payer MEDICARE, MEDICAID, SELFPAY ==
[2020-09-25 12:02] VITALS: BP 105/56; PULSE 74; RESP 18; O2SAT 98; BMI 22.8
--- NOTE | 2020-09-25 12:12 | HMH.PAINSOAP ---
[facility] Pain Management SOAP Note Subjective:: Patient is a pleasant 59-year-old white female who presents today for follow-up. The patient is seen in our clinic for degenerative disc disease lumbar spine with lumbar radiculopathy symptoms. She does have a history of bulging disks. She has undergone injective therapy in our clinic in the past with lumbar epidural steroid injections and gets between 3 to 4 months of relief. The patient also has a spinal cord stimulator for her radicular pain. She is having pain in her low back area with radiation into her lower extremities. The pain is worse with sitting and standing. Patient is doing home stretching with little to no relief. She is also trying anti-inflammatories and has undergone physical therapy for greater than 6 weeks in the past. She has not gotten any significant relief. Her injections are primarily performed at the L4-L5 area. Her pain has changed somewhat. Her pain has now lower in near her coccygeal area. She says that this pain is somewhat different. She does have radicular pain into her posterior thigh area. She is also having pain in her calf area. We discussed undergoing a lumbar epidural steroid injection at L5-S1 area. She gets excellent relief from a 10 out of 10 pain to a 0 out of 10 pain for 3 to 4 months in conjunction with her epidural and her spinal cord stimulator. Her spinal cord stimulator has been reprogrammed. She is not on any anticoagulation therapy. Review of Systems General: No recent weight changes, no fever, no sleep disturbances Respiratory: No cough, no shortness of air, no recurring pulmonary infections Cardiovascular/peripheral vascular: No chest pain, no palpitations, [no edema], no shortness of breath Gastrointestinal: No new onset incontinence, normal bowel movements reported Genitourinary: No new onset incontinence Musculoskeletal: [] Low back pain with radiation into legs and calves, coccygeal pain Psychiatric: [Normal mood/affect] Neurological: [Denies weakness in extremities], [denies balance issues] Objective:: Physical exam General: Alert and oriented x3, no acute distress, pleasant and cooperative, [on room air] Lungs: Respirations even and unlabored, symmetrical chest expansion Eyes: PERRL Musculoskeletal: Flexion and extension of [] lumbar [spine] and coccyx somewhat guarded secondary to pain, strength in upper and lower extremities [5/5], [antalgic gait noted] Neurological: Speech clear, [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 Her previous injections were performed at the L4-L5 area. Her pain is changed somewhat. Her pain has radiated into the coccygeal area as well as into her calves. She is continue with home stretching and anti-inflammatories. She is not on any anticoagulation therapy. We will see her back in the clinic after her injection for reevaluation of symptoms. Patient has been instructed to contact clinic if she has any concerns before next appointment. Risks and benefits of the procedure have been explained to the patient. Patient would like to proceed with the procedure. Possible side effects of corticosteroids have been discussed with the patient. Patient has been instructed to contact the clinic with any concerns before the next appointment. Dr. Mata has reviewed this note and agrees with this plan of care. This note was dictated using voice recognition software and make contain errors or omissions. [facility] History I have reviewed the patient's past medical history: Yes Medical History: Reports:: Anxiety, Depression, Gastroesophageal Reflux Disease(GERD), Lung Disease (sleep apnea-does not use cpap) Denies:: Cancer, Diabetes Mellitus Type 1, Diabetes Mellitus Type 2, Internal Pacemaker, MRSA, Seizures *Have you
== END ==
PROVIDERS: PCP Nurse Practitioner Family; Visit Provider Clinical Nurse Specialist Family Health
DX: M51.16 Intervertebral disc disorders with radiculopathy, lumbar region (principal); M53.3 Sacrococcygeal disorders, not elsewhere classified
CPT/HCPCS: 99212; G0463

== ENCOUNTER → 2020-10-08 13:00 | Outpatient (CLI) | payer MEDICARE, MEDICAID, SELFPAY ==
--- NOTE | 2020-10-08 13:04 | MM_ITS ---
PROCEDURE: MM DIG SCREENING MAMM BI W/CAD Digital Breast Tomosynthesis Included CLINICAL INDICATION: SCREENING COMPARISON: [facility] MM Dig screening mamm BI w/CAD from 09/08/2017 MG MM DIG SCREENING MAMM BI W/CAD from 10/04/2018 MG MM DIG SCREENING MAMM BI W/CAD from 10/08/2019 TECHNIQUE: Standard CC and MLO images and 3D Tomosynthesis was obtained. R2 CAD reviewed. FINDINGS: Average fibroglandular tissue. No suspicious appearing mass, malignant-appearing microcalcification, architectural distortion, or skin thickening. No significant change IMPRESSION: Negative BI-RAD Category: 1 Negative FOLLOW-UP: 1 YR 1 Year Follow-up (A letter has been sent to the patient regarding results of the study.) Dictated by: Magdaleno Buchanan MD 10/15/2020 19:20 Magdaleno Buchanan MD in [place] 10/15/2020 19:20
== END ==
PROVIDERS: PCP Nurse Practitioner Family; Visit Provider Nurse Practitioner Family
DX: Z12.31 Encounter for screening mammogram for malignant neoplasm of breast (principal)
CPT/HCPCS: 77063; 77067

== ENCOUNTER 2020-10-10 10:10 | Day surgery (SDC) | payer MEDICARE, MEDICAID, SELFPAY ==
[2020-10-10 10:32] VITALS: BP 116/38; PULSE 79; RESP 18; TEMP 36.3; O2SAT 98; BMI 23.3
[2020-10-10 10:44] VITALS: BP 130/63; PULSE 72; RESP 18; O2SAT 98
[2020-10-10 10:47] VITALS: BP 134/68; PULSE 83; RESP 18; O2SAT 96
[2020-10-10 10:56] VITALS: BP 117/70; PULSE 71; RESP 18; O2SAT 98
--- NOTE | 2020-10-10 11:06 | HMH.PMPROC ---
- Procedure Date: 10/10/20 Time: 11:06 Anesthesiologist:: Yong Mata MD Complications:: None Pre-procedure Diagnosis:: Degenerative disc disease of lumbar spine with lumbar radiculopathy symptoms Post-procedure Diagnosis:: Same Indications for Procedure:: This patient is a pleasant 59-year-old white female who we are treating for low back pain with lumbar radiculopathy symptoms. She has some increasing pain in her back rating down both legs. She has benefited from these injections prior which have given her several months pain relief. Pain is now back so we will do a repeat lumbar epidural steroid injection under fluoroscopy. Procedure Details:: Informed consent was obtained and the risk and benefits of the procedure was explained to the patient. The patient was taken to the procedure room. The patient was placed prone on the procedure table. The patient was prepped and draped in sterile fashion. C-arm fluoroscopy was used to view the lumbar spine. Skin and subcutaneous tissues were anesthetized using lidocaine. I placed an 18-gauge epidural needle and advanced into the L4-L5 interspace using fluoroscopic guidance and [id number] to air. After confirmation of needle placement in the epidural space with dye I injected 2 mL of lidocaine 1.5% with Depo-Medrol 80 mg. Patient tolerated the procedure well with no complications. Plan and Disposition:: Follow-up with her in 2 weeks. Will reevaluate her symptoms at that time.
== END 2020-10-10 10:57 | disposition home or self-care (01) ==
LOC: SC.PAINP 10:12
PROVIDERS: PCP Nurse Practitioner Family; Visit Provider Anesthesiology
DX: M51.16 Intervertebral disc disorders with radiculopathy, lumbar region (principal); G47.33 Obstructive sleep apnea (adult) (pediatric); K21.9 Gastro-esophageal reflux disease without esophagitis; M79.18 Myalgia, other site; M19.90 Unspecified osteoarthritis, unspecified site; F41.9 Anxiety disorder, unspecified; F32.9 Major depressive disorder, single episode, unspecified; Z88.0 Allergy status to penicillin; Z88.8 Allergy status to other drugs, medicaments and biological substances
CPT/HCPCS: 62323; J1040; Q9966

== ENCOUNTER → 2020-10-31 06:46 | Outpatient (CLI) | payer MEDICARE, MEDICAID, SELFPAY ==
--- NOTE | 2020-10-31 06:53 | CT_ITS ---
PROCEDURE: CT LUMBAR SPINE WO CON CLINICAL HISTORY: BACK PAIN And left leg pain COMPARISON: [facility] [employer]/O MRI-L-SPINE W/O from 12/13/[address] LUMBAR SPINE WO CON from 03/21/2019 TECHNIQUE: Axial images obtained with sagittal and coronal reformats. All CT scans at the facility use one or more dose reduction, viz: automated exposure control, ma/kV adjustment per patient size (including targeted exams where dose is matched to indication, i.e. head), or iterative reconstruction technique. FINDINGS: Overall curvature and alignment appears normal except for minor 2-3 mm anterior listhesis L4 on L5 and this was noted previously. There is mild generalized osteopenia. There are moderate hypertrophic facet changes at L4-5 and L5-S1. Willard device again seen just to the right the L1 level with electrode extending superiorly at least to midthoracic spine but off of the field of view on this exam. Three 4 level causing mild neural foraminal compromise the left side at this level. There is a broad-based partially calcified disc bulge the L4-5 causing prominent neural foraminal narrowing bilaterally compounded by the fact that there is hypertrophic facet changes at this level. There is a central left paracentral disc protrusion L5-S1 almost totally occluding the left neural foramen that this level. IMPRESSION: Multilevel disc protrusions and prominent hypertrophic facet changes at L 4 5 and L5-S1 all likely the cause of the patient's current symptoms, no significant interval progression of the changes since the previous exam 03/21/2019 Dictated by: Dr. Sergio Hylton MD 10/31/2020 08:01 Dr. Sergio Hylton MD in [place] 10/31/2020 08:01
== END ==
PROVIDERS: PCP Nurse Practitioner Family; Visit Provider Clinical Nurse Specialist Family Health
DX: M54.5 Low back pain (principal)
CPT/HCPCS: 72131

== ENCOUNTER → 2020-11-14 08:52 | Day surgery (SDC) | payer MEDICARE, MEDICAID, SELFPAY ==
[2020-11-14 09:15] VITALS: BP 106/63; PULSE 65; RESP 20; O2SAT 95; BMI 23.6
--- NOTE | 2020-11-14 09:26 | HMH.PAINSOAP ---
[facility] Pain Management SOAP Note Subjective:: This patient is a pleasant 59-year-old white female who been treating for low back pain with lumbar radiculopathy symptoms. She does have increasing pain radiating down both legs. She does get 50 to 60% relief for 2 to 3 months after epidural steroid injections. She is taking a trip and has had one lumbar epidural steroid injection she is 60 to 70% better. She still has some residual pain. We are seeking approval for repeat lumbar epidural steroid injection prior to her trip. Objective:: Alert and oriented x3 no acute distress. Patient is an antalgic gait. Motor strength of lower extremities is 5/5. There is no gross sensory deficit. Assessment:: Degenerative disc disease of lumbar spine with lumbar radiculopathy symptoms with bulging disc and facet hypertrophy throughout Plan:: We will seek approval for a repeat lumbar epidural steroid injection. She is 60 to 70% better and usually gets 50 to 60% relief for 2 to 3 months. She has residual pain and is taking a trip in November. We are seeking approval for repeat lumbar epidural steroid injection under fluoroscopy prior to her trip. [facility] History Medical History: Reports:: Anxiety, Depression, Gastroesophageal Reflux Disease(GERD), Lung Disease (sleep apnea-does not use cpap) Denies:: Cancer, Diabetes Mellitus Type 1, Diabetes Mellitus Type 2, Internal Pacemaker, MRSA, Seizures *Have you ever received a pneumonia vaccine?: No *Have you received a flu vaccine this season?: Yes Other Medical History: Reports: Arthritis, Fibromyalgia, Sinus Problems, Other. Denies: Blood Transfusion Reaction Laterality Cases: Bilateral: Tonsillectomy, Other Other Surgeries: Yes: Appendectomy, Cholecystectomy, Colostomy, Hysterectomy-Total, Sinus Surgery, Other (Dental extraction). No: Pacemaker Amputation: No Fractures: No - *Social History Smoking Status: Former smoker Tobacco Type: cigarettes # Packs/Day (cigarettes): 1 Alcohol Intake: never Alcohol Intake Frequency:: holidays/special occasions only Substance Use Type: denies use *Occupational Status:: disabled Housing: house Household Members: none *Travel in the last 8 weeks: None - Psychiatric History Pschychiatric History:: Reports:: Anxiety, Depression Family Hx:: Cancer, Diabetes, Hypertension, Stroke
== END ==
PROVIDERS: PCP Nurse Practitioner Family; Visit Provider Anesthesiology
DX: M51.16 Intervertebral disc disorders with radiculopathy, lumbar region (principal); M24.28 Disorder of ligament, vertebrae
CPT/HCPCS: 99212; G0463

== ENCOUNTER 2021-01-30 12:29 | Day surgery (SDC) | payer MEDICARE, MEDICAID, SELFPAY ==
[2021-01-30 12:36] VITALS: BP 114/53; PULSE 80; RESP 18; TEMP 36.6; O2SAT 99; BMI 23.3
[2021-01-30 12:46] VITALS: BP 128/97; PULSE 95; RESP 18; O2SAT 98
[2021-01-30 12:48] VITALS: PULSE 88; RESP 18; O2SAT 99
[2021-01-30 13:07] VITALS: BP 125/68; PULSE 68; RESP 20; O2SAT 97
--- NOTE | 2021-02-06 13:14 | P.PCN_ITS ---
- Procedure Date: 01/30/21 Time: 13:30 Anesthesiologist:: Yong Mata MD Complications:: None Pre-procedure Diagnosis:: Degenerative disc disease of lumbar spine with lumbar radiculopathy symptoms Post-procedure Diagnosis:: Same Indications for Procedure:: Patient is a pleasant 60-year-old white female who we are treating for low back pain with lumbar radiculopathy symptoms. She does have a nonfunctional spinal cord stimulator system in place. She does have increasing back pain and leg pain. We will plan on lumbar epidural steroid injection today to see if this helps with her pain symptoms. Procedure Details:: Informed consent was obtained and the risk and benefits of the procedure was explained to the patient. The patient was taken to the procedure room. The patient was placed prone on the procedure table. The patient was prepped and draped in sterile fashion. C-arm fluoroscopy was used to view the lumbar spine. Skin and subcutaneous tissues were anesthetized using lidocaine. I placed an 18-gauge epidural needle and advanced into the L4-L5 interspace using fluoroscopic guidance and [id number] to air. After confirmation of ne edle placement in the epidural space with dye I injected 2 mL of lidocaine 1.5% with Depo-Medrol 80 mg. Patient tolerated the procedure well with no complications. Plan and Disposition:: We will follow-up with her in 2 weeks. Will reevaluate symptoms at that time. We will also seek approval for changing of her nonfunctional Nuvectra spinal cord stimulator system to a [employer] spinal cord stimulator system. Her battery in the Nuvectra system is currently .
== END 2021-01-30 13:08 | disposition home or self-care (01) ==
LOC: SC.PAINP 12:30
PROVIDERS: PCP Nurse Practitioner Family; Visit Provider Anesthesiology
DX: M51.16 Intervertebral disc disorders with radiculopathy, lumbar region (principal); T85.192D Other mechanical complication of implanted electronic neurostimulator of spinal cord electrode (lead), subsequent encounter; G47.33 Obstructive sleep apnea (adult) (pediatric); K21.9 Gastro-esophageal reflux disease without esophagitis; M79.7 Fibromyalgia; M19.90 Unspecified osteoarthritis, unspecified site; F41.9 Anxiety disorder, unspecified; F32.A Depression, unspecified; Z87.891 Personal history of nicotine dependence; G43.909 Migraine, unspecified, not intractable, without status migrainosus; Z90.49 Acquired absence of other specified parts of digestive tract; Z88.0 Allergy status to penicillin; Z88.2 Allergy status to sulfonamides
CPT/HCPCS: 62323; J1040; Q9966

== ENCOUNTER → 2021-02-23 09:12 | Outpatient (POV) | payer MEDICARE, MEDICAID, SELFPAY ==
[2021-02-23 09:26] VITALS: BP 137/72; PULSE 74; RESP 18; O2SAT 97; BMI 23.3
--- NOTE | 2021-02-23 09:55 | HMH.PAINSOAP ---
[facility] Pain Management SOAP Note Subjective:: Patient is a pleasant 52-year-old female who comes in today for follow-up after a lumbar epidural steroid injection on 01/30/2021. Patient is currently being treated for degenerative disc disease of the lumbar spine with lumbar radiculopathy symptoms. After the procedure, patient states that she had about 80 to 90% relief. Patient has had success of this procedure before and she was getting it almost every 3 months but she is now limited by insurance. Patient denies any issues after these procedures. Patient would like to schedule another injection in February since she has been having increasing pain. We have discussed previously that she is a good candidate for a change up of her [employer] stimulator to [employer]. We will get a scheduled this change in February. However, the patient wants to see a back surgeon first in March 04, 2021 to see other options. We will schedule the patient for a lumbar epidural steroid injection after March 04. Then, we will discuss if the patient is wanting to move forward with the change in March. Patient says that she has a trip in the first week of March, she would like to hold off any surgeries until after then. Her Zion number is [phone] with an active morphine equivalent of 0. Drug screens have been appropriate. General: No recent weight changes, no fever, no sleep disturbances Respiratory: No cough, no shortness of air, no recurring pulmonary infections Cardiovascular/peripheral vascular: No chest pain, no palpitations, no edema, no shortness of breath Gastrointestinal: No new onset incontinence, normal bowel movements reported Genitourinary: No new onset incontinence Musculoskeletal: low back pain Psychiatric: [Normal mood/affect] Neurological: [Denies weakness in extremities], [denies balance issues] Objective:: General: Alert and oriented x3, no acute distress, pleasant and cooperative, [on room air] Lungs: Respirations even and unlabored, symmetrical chest expansion Eyes: PERRL Musculoskeletal: Flexion and extension of [lumbar] [spine] somewhat guarded secondary to pain, [antalgic gait noted] Neurological: Speech clear, no gross sensory deficit Assessment:: Degenerative disease of the lumbar spine with lumbosacral of the symptoms Plan:: Patient has tried and failed conservative therapy such as oral medication, physical therapy, and at home exercise return in 6 weeks. We will schedule the patient for a lumbar epidural steroid injection level of L4-L5. Risks and benefits of the procedure have been explained to the patient. Patient would like to proceed with the procedure. During the lumbar epidural steroid injection in February, we will discuss with the patient if she is wanting to move forward breathing change to [employer] stimulator. Patient has been instructed to contact the clinic with any concerns before the next appointment. Dr. Mata has reviewed this note and agrees with this plan of care. This note was dictated using voice recognition software and make contain errors or omissions. [facility] History Medical History: Reports:: Anxiety, Depression, Gastroesophageal Reflux Disease(GERD), Lung Disease (sleep apnea-does not use cpap) Denies:: Cancer, Diabetes Mellitus Type 1, Diabetes Mellitus Type 2, Internal Pacemaker, MRSA, Seizures *Have you ever received a pneumonia vaccine?: Yes *Have you received a flu vaccine this season?: Yes Other Medical History: Reports: Arthritis, Fibromyalgia, Sinus Problems, Other. Denies: Blood Transfusion Reaction Laterality Cases: Bilateral: Tonsillectomy, Other Other Surgeries: Yes: Appendectomy, Cholecystectomy, Colostomy, Hysterectomy-Total, Sinus Surgery, Other (Dental extraction). No: Pacemaker Amputation: No Fractures: No - *Social History Smoking Status: Former smoker Tobacco Type: cigarettes # Packs/Day (cigarettes): 1 Alcohol Intake: never Alcohol Intake Philip
== END ==
PROVIDERS: Visit Provider Family Medicine
DX: M51.16 Intervertebral disc disorders with radiculopathy, lumbar region (principal)
CPT/HCPCS: 99212; G0463

== ENCOUNTER → 2021-04-17 07:16 | Outpatient (CLI) | payer MEDICARE, MEDICAID, SELFPAY ==
--- NOTE | 2021-04-17 07:22 | CT_ITS ---
FINAL REPORT CLINICAL HISTORY: DIZZINESS AND GIDDINESS FINDINGS: Axial images of the head were obtained without contrast. Coronal reformatted images were also obtained.This study was performed with techniques to keep radiation doses as low as reasonably achievable (ALARA). Individualized dose reduction techniques using automated exposure control or adjustment of mA and/or kV according to the patient's size were employed. There is no evidence of intracranial hemorrhage or mass. The ventricular size is within normal limits. There is no evidence of shift of the midline structures. No abnormal extra axial fluid collection is identified. No skull abnormality is seen on the bone window images. There is postoperative change of the sinuses. IMPRESSION: No acute intracranial abnormality. Reviewed, Interpreted and Dictated by Marc Shin III, MD Transcribed by Ezequiel Ellison Authenticated by Marc Shin III, MD on 04/17/2021 08:27:40 AM [facility]
== END ==
PROVIDERS: PCP Nurse Practitioner Family; Visit Provider Nurse Practitioner Family
DX: R42 Dizziness and giddiness (principal)
CPT/HCPCS: 70450

== ENCOUNTER 2021-06-29 08:00 | Outpatient (RCR) | payer MEDICARE, MEDICAID, SELFPAY | END 2021-06-30 09:44 | disposition home or self-care (01) | LOC: PT.CARL 08:00 | PROVIDERS: PCP Nurse Practitioner Family; Visit Provider Registered Nurse Critical Care Medicine | DX: M51.26 Other intervertebral disc displacement, lumbar region (principal); M54.42 Lumbago with sciatica, left side; G89.29 Other chronic pain | CPT/HCPCS: 20561; 97010; 97014; 97110; 97140; 97163; 97164; G0283 ==

== ENCOUNTER 2021-08-01 12:38 | Emergency (ER) | payer MEDICARE, MEDICAID, SELFPAY ==
[2021-08-01] VITALS (10 sets, daily range): BP systolic 91–114; BP diastolic 54–70; PULSE 74–95; RESP 15–16; TEMP 36.6–37.2; O2SAT 94–98; BMI 24.1
--- NOTE | 2021-08-01 12:46 | HMH.EDGENADL ---
ED Disposition Clinical Impression: Epigastric abdominal pain Disposition: Home, Self-Care Condition on Discharge: Good Additional Instructions: Recommend bland diet with no spicy or fatty foods and use the Carafate as instructed as well as starting acid reduction therapy with either famotidine or omeprazole. Prescriptions: Sucralfate [Carafate 1gm Tab] 1 gm PO TID #15 tab Transmission Status: Pending to [facility] Referrals: Naya Goodwin [Primary Care Provider] - Time of Disposition: 15:35 - Critical Care Critical Care Time: No Attestation: On , the high probability of a clinically significant, sudden or life threatening deterioration of the following system(s) required my full and direct attention, intervention and personal management. The time I documented below is in addition to time spent performing reported procedures but includes the following listed in this critical care notation. Medical Decision Making - Medical Records Medical records reviewed: Yes: I reviewed the patient's medical records. - Zion Inquiry Pt receiving controlled substance: No Vital Signs: 08/01/21 12:41 08/01/21 12:59 08/01/21 13:19 Temperature 99 F Temperature Source Oral Pulse Rate 93 H 82 Pulse Rate [Radial] 74 Respiratory Rate 16 16 15 Blood Pressure 114/67 110/66 Blood Pressure [Right Arm] 100/70 L Blood Pressure Mean 77 80 Blood Pressure Mean [Right Arm] 80 Blood Pressure Position [Right Arm] Sitting 02 Sat by Pulse Oximetry 98 98 96 Oxygen Delivery Method Room Air Room Air 08/01/21 13:29 08/01/21 13:49 08/01/21 14:09 Temperature Temperature Source Pulse Rate 89 89 89 Pulse Rate [Radial] Respiratory Rate 16 15 16 Blood Pressure 104/68 L 91/61 L 107/56 L Blood Pressure [Right Arm] Blood Pressure Mean 77 68 67 Blood Pressure Mean [Right Arm] Blood Pressure Position [Right Arm] 02 Sat by Pulse Oximetry 96 96 96 Oxygen Delivery Method 08/01/21 14:19 08/01/21 14:29 08/01/21 14:39 Temperature Temperature Source Pulse Rate 89 95 H 93 H Pulse Rate [Radial] Respiratory Rate 15 Blood Pressure 91/56 L 97/54 L 104/64 L Blood Pressure [Right Arm] Blood Pressure Mean 62 Blood Pressure Mean [Right Arm] Blood Pressure Position [Right Arm] 02 Sat by Pulse Oximetry 97 95 94 L Oxygen Delivery Method - Lab Data Lab results reviewed: Yes: I reviewed the patient's lab results. Lab Results 08/01/21 13:52: Troponin I < 0.01 08/01/21 13:52: WBC 3.3 L, RBC 3.84 L, Hgb 12.7, Hct 37.8, MCV 98.3, MCH 33.0 H, MCHC 33.5, RDW 13.2, Plt Count 114 L, MPV 10.2, Neut % (Auto) 71.6, Lymph % (Auto) 24.2, [place]as % (Auto) 2.8, Eos % (Auto) 0.1, Baso % (Auto) 1.4, Neut # (Auto) 2.3, Lymph # (Auto) 0.8, [place] # (Auto) 0.1, Eos # (Auto) 0.0, Baso # (Auto) 0.0 08/01/21 13:52: Sodium 135 L, Potassium 3.4 L, Chloride 104, Carbon Dioxide 25, Anion Gap 9.4, BUN 10, Creatinine 0.70, Estimated Creat Clear 83, Estimated GFR 86, Est GFR ( Amer) 104, Glucose 102 H, Calcium 8.3 L, Total Bilirubin 0.6, AST 185 H, ALT 237 H, Alkaline Phosphatase 208 H, Total Protein 5.9 L, Albumin 3.3 L, Globulin 2.6, Albumin/Globulin Ratio 1.3, Lipase 82 08/01/21 14:50: Urine Color Yellow, Urine Appearance Clear, Urine pH 5.5, Ur Specific Grant >= 1.030, Urine Protein 1+, Urine Glucose (UA) Negative, Urine Ketones 2+, Urine Blood 3+, Urine Nitrate Negative, Urine Bilirubin 1+ A, Urine Urobilinogen 1.0, Ur Leukocyte Esterase Negative Result diagrams: 08/01/21 13:52 08/01/21 13:52 Orders (Tests/Meds): ED MEDICATIONS Discontinued Medications Generic Name Dose Route Start Last Admin Trade Name Freq PRN Reason Stop Dose Admin Belladonna Alkaloids 60 ml 08/01/21 12:52 08/01/21 13:06 Gi Cocktail 60ml Udc PO 08/01/21 12:53 60 ml ONCE ONE Administration Dicyclomine HCl 20 mg 08/01/21 12:52 08/01/21 13:07 Dicyclomine 10mg Capsule PO 08/01/21 12:53 20 mg ONC
--- NOTE | 2021-08-01 12:47 | ECG_ITS ---
APPROVED REPORT Exam: Resting ECG HR:82 bpm ECG Measurements Heart Rate 82 AXES SD 159 P 76 QRSd 88 QRS 62 QT 361 T 46 QTc 399 Conclusion SINUS RHYTHM POSSIBLE RIGHT VENTRICULAR CONDUCTION DELAY [RSR (QR) IN V1/V2] BORDERLINE ECG UNCONFIRMED REPORT Electronically signed by : Nixon Avelar MD 08/01/2021 17:22:33
--- NOTE | 2021-08-01 12:52 | XR_ITS ---
PROCEDURE INFORMATION: Exam: XR Chest Exam date and time: 08/01/2021 1:02 PM Age: 60 years old Clinical indication: Pain; Other: Epigastric; Additional info: Epigastric lower chest pain TECHNIQUE: Imaging protocol: XR of the chest. Views: 1 view. COMPARISON: CR CXR CHEST(2 VIEWS-NOT PORTABLE) 09/11/2015 1:09 PM FINDINGS: Tubes, catheters and devices: An intraspinal neurostimulator device is now demonstrated . The leads are at different positions. Left lead extending into the cervical spine. Right lead at the level of the T8-9 disc space. Clinically correlate. Lungs: See Heart/Mediastinum finding. Pleural spaces: Unremarkable. No pleural effusion. No pneumothorax. Heart/Mediastinum: Calcified left perihilar lymph node. Bones/joints: See Tubes, catheters and devices finding. IMPRESSION: 1. No evidence of acute cardiopulmonary disease. 2. Evidence of prior granulomatous disease. 3. Clinically correlate regarding neurostimulator device placement.
--- NOTE | 2021-08-01 13:11 | PC.NURSE ---
radiology bedside doing chest x-ray.
[2021-08-01 14:06] LABS: Basophils % 1.4 % (0.1-2.0); Eosinophils % 0.1 % (0.1-12.0); Hematocrit 37.8 % (37.0-47.0); Hemoglobin 12.7 g/dL (12.2-16.2); Lymphocytes # 0.8 K/mm3 (0.7-4.5); Lymphocytes % 24.2 % (10-50); Mean Corpuscular HGB Conc 33.5 g/dL (31.8-35.4); Mean Corpuscular Volume 98.3 fl (81-99); Mean Platelet Volume 10.2 fl (7.4-10.4); Monocytes # 0.1 K/mm3 (0.1-1.0); Monocytes % 2.8 % (1.7-9.3); Neutrophils # 2.3 K/mm3 (1.8-7.8); Neutrophils % 71.6 % (37.0-80.0); Platelet Count 114 K/mm3 (142-424); Red Blood Count 3.84 M/mm3 (4.20-5.40); Red Cell Distribution Width 13.2 % (11.5-17.5); White Blood Count 3.3 K/mm3 (4.8-10.8)
[2021-08-01 14:08] LABS: Chloride 104 mmol/L (98-107); Potassium 3.4 mmoL/L (3.5-5.1); Sodium 135 mmol/L (136-145)
[2021-08-01 14:10] LABS: Alanine Aminotransferase 237 U/L (12-78); Alkaline Phosphatase 208 U/L (38-126); Aspartate Amino Transferase 185 U/L (14-36); Bilirubin,Total 0.6 mg/dl (0.2-1.3); Blood Urea Nitrogen 10 mg/dl (7-17); Creatinine Clearance Estimated 83 mL/min (50-200); Estimated Glomerular Filt Rate 86 ml/min (>60); GFR (African American) 104 ML/MIN (>60)
[2021-08-01 14:11] LABS: Albumin Level 3.3 g/dl (3.5-5.0); Albumin/Globulin Ratio 1.3 (1.1-1.8); Anion Gap 9.4 mEq/L (5-15); Calcium 8.3 mg/dl (8.4-10.2); Carbon Dioxide 25 mmol/L (22.0-30.0); Globulin 2.6 g/dL (1.3-3.2); Glucose 102 mg/dl (74-100); Lipase 82 U/L (23-300); Total Protein,Serum 5.9 g/dl (6.3-8.2)
[2021-08-01 14:26] LABS: Troponin I < 0.01 ng/ml (0.00-0.034)
[2021-08-01 15:08] LABS: Microscopic, Urine URINE MICROSCOPIC (MICROSCOPIC)
[2021-08-01 15:11] LABS: Appearance,Urine CLEAR (Clear); Blood, Urine 3+ (Negative); Color,Urine YELLOW (Yellow); Glucose,Urine (UA) Negative (Negative); Ketones,Urine 2+ (Negative); Leukocyte Esterase,Urine Negative (Negative); Nitrate,Urine Negative (Negative); PH,Urine 5.5 (5.0-8.5); Protein,Urine 1+ (Negative); Specific Gravity, Urine >= 1.030 (1.005-1.030)
[2021-08-01 15:16] LABS: Bilirubin,Urine 1+ (Negative)
[2021-08-01 15:27] LABS: Bacteria,Urine Trace /lpf; WBC,Urine Occasional #/hpf (0-3)
[2021-08-01 16:10] LABS: Troponin I < 0.01 ng/ml (0.00-0.034)
== END 2021-08-01 17:34 | disposition home or self-care (01) ==
PROVIDERS: Emergency Provider Student in an Organized Health Care Education/Training Program; PCP Nurse Practitioner Family
DX: R10.13 Epigastric pain (principal); Z88.0 Allergy status to penicillin; Z88.2 Allergy status to sulfonamides; F41.9 Anxiety disorder, unspecified; F32.A Depression, unspecified; K21.9 Gastro-esophageal reflux disease without esophagitis; G47.33 Obstructive sleep apnea (adult) (pediatric); M19.90 Unspecified osteoarthritis, unspecified site; Z87.891 Personal history of nicotine dependence
CPT/HCPCS: 36415; 71045; 80053; 81001; 83690; 84484; 85025; 99283; J2405

== ENCOUNTER 2021-08-04 23:19 | Emergency (ER) | payer MEDICARE, MEDICAID, SELFPAY ==
[2021-08-05] VITALS (8 sets, daily range): BP systolic 91–114; BP diastolic 42–64; PULSE 70–111; RESP 16; TEMP 37.1–38.8; O2SAT 93–98; BMI 23.8
--- NOTE | 2021-08-05 01:24 | CT_ITS ---
PROCEDURE INFORMATION: Exam: CT Abdomen And Pelvis Without Contrast Exam date and time: 08/05/2021 1:36 AM Age: 60 years old Clinical indication: Abdominal pain; Localized; Upper; Prior surgery; Surgery date: 6+ months; Surgery type: Cholecystectomy TECHNIQUE: Imaging protocol: Computed tomography of the abdomen and pelvis without contrast. Radiation optimization: All CT scans at this facility use at least one of these dose optimization techniques: automated exposure control; mA and/or kV adjustment per patient size (includes targeted exams where dose is matched to clinical indication); or iterative reconstruction. COMPARISON: ABDPELW CT abdomen pelvis w con 08/25/2018 2:46 PM FINDINGS: Tubes, catheters and devices: Right posterior flank generator noted with spinal electrodes extending superiorly. Liver: Normal. No mass. Gallbladder and bile ducts: Exam demonstrates features of prior cholecystectomy. No biliary tree dilation or high-density retained stones appreciated. Pancreas: Normal. No ductal dilation. Spleen: Normal. No splenomegaly. Adrenal glands: Normal. No mass. Kidneys and ureters: Kidneys are symmetric without evidence of obstruction. Stomach and bowel: Postprandial stomach. Normal caliber small bowel. Distal colonic diverticulosis without evidence of acute diverticulitis. Appendix: No evidence of appendicitis. Intraperitoneal space: Unremarkable. No free air. No significant fluid collection. Vasculature: Unremarkable. No abdominal aortic aneurysm. Lymph nodes: Unremarkable. No enlarged lymph nodes. Urinary bladder: Unremarkable as visualized. Reproductive: Features of prior hysterectomy noted. No evidence of vaginal cuff or adnexal mass. Bones/joints: Moderate lower lumbar facet arthropathy. There is mild degenerative anterolisthesis of L4 on L5 with mild canal and bilateral neural foraminal stenosis. Minimal sacroiliac osteoarthritis. Soft tissues: There is a tiny fat containing supraumbilical ventral hernia. No regional inflammation appreciated. IMPRESSION: No acute abnormality identified to explain patient's upper abdomen pain.
[2021-08-05 01:46] LABS: Microscopic, Urine URINE MICROSCOPIC (MICROSCOPIC)
[2021-08-05 01:47] LABS: Appearance,Urine CLEAR (Clear); Bilirubin,Urine Negative (Negative); Blood, Urine TRACE-I (Negative); Color,Urine YELLOW (Yellow); Glucose,Urine (UA) Negative (Negative); Ketones,Urine Negative (Negative); Leukocyte Esterase,Urine Negative (Negative); Nitrate,Urine Negative (Negative); Protein,Urine Negative (Negative); Specific Gravity, Urine <= 1.005 (1.005-1.030)
[2021-08-05 02:03] LABS: Basophils # 0.1 K/mm3 (0-0.2); Basophils % 1.5 % (0.1-2.0); Eosinophils % 0.3 % (0.1-12.0); Hematocrit 39.2 % (37.0-47.0); Hemoglobin 12.7 g/dL (12.2-16.2); Lymphocytes # 1.6 K/mm3 (0.7-4.5); Lymphocytes % 17.5 % (10-50); Mean Corpuscular HGB Conc 32.3 g/dL (31.8-35.4); Mean Corpuscular Hemoglobin 31.9 pg (27.0-31.2); Mean Corpuscular Volume 98.6 fl (81-99); Mean Platelet Volume 9.9 fl (7.4-10.4); Monocytes # 0.2 K/mm3 (0.1-1.0); Monocytes % 2.1 % (1.7-9.3); Neutrophils # 7.2 K/mm3 (1.8-7.8); Neutrophils % 78.7 % (37.0-80.0); Platelet Count 192 K/mm3 (142-424); Red Blood Count 3.98 M/mm3 (4.20-5.40); Red Cell Distribution Width 13.4 % (11.5-17.5); White Blood Count 9.1 K/mm3 (4.8-10.8)
[2021-08-05 02:10] LABS: Coronavirus 19, PCR Not Detected (NotDetected); Influenza A, PCR Not Detected (NotDetected); Influenza B, PCR Not Detected (NotDetected)
[2021-08-05 02:16] LABS: Alanine Aminotransferase 88 U/L (12-78); Albumin Level 3.4 g/dl (3.5-5.0); Albumin/Globulin Ratio 1.1 (1.1-1.8); Alkaline Phosphatase 148 U/L (38-126); Amylase 53 U/L (30-110); Anion Gap 6.3 mEq/L (5-15); Aspartate Amino Transferase 47 U/L (14-36); Bilirubin,Total 0.4 mg/dl (0.2-1.3); Blood Urea Nitrogen 9 mg/dl (7-17); Calcium 8.4 mg/dl (8.4-10.2); Carbon Dioxide 36 mmol/L (22.0-30.0); Chloride 97 mmol/L (98-107); Creatinine Clearance Estimated 71 mL/min (50-200); Estimated Glomerular Filt Rate 74 ml/min (>60); GFR (African American) 89 ML/MIN (>60); Globulin 3.1 g/dL (1.3-3.2); Glucose 106 mg/dl (74-100); Lipase 92 U/L (23-300); Potassium 3.3 mmoL/L (3.5-5.1); Sodium 136 mmol/L (136-145); Total Protein,Serum 6.5 g/dl (6.3-8.2)
[2021-08-05 02:21] LABS: C-Reactive Protein 215.6 mg/L (0-4)
--- NOTE | 2021-08-05 02:41 | PC.NURSE ---
pt resting in bed. Updated on POC. No new needs
[2021-08-05 03:05] LABS: Erythrocyte Sedimentation Rate 120 mm/hr (0-30)
--- NOTE | 2021-08-05 03:14 | HMH.EDFEV ---
ED Disposition Clinical Impression: Acute febrile illness, Elevated erythrocyte sedimentation rate, Elevated C-reactive protein (CRP) Disposition: Home, Self-Care Condition on Discharge: Good Instructions: DI for Fever (Symptom) -- Adult Additional Instructions: fluids and see pcp for follow up this week Referrals: Naya Goodwin [Primary Care Provider] - - Critical Care Critical Care Time: No Attestation: On 08/04/21, the high probability of a clinically significant, sudden or life threatening deterioration of the following system(s) required my full and direct attention, intervention and personal management. The time I documented below is in addition to time spent performing reported procedures but includes the following listed in this critical care notation. Medical Decision Making - Medical Records Medical records reviewed: Yes: I reviewed the patient's medical records. - [place] Inquiry Pt receiving controlled substance: No Vital Signs: 08/05/21 01:15 08/05/21 02:42 08/05/21 03:40 Temperature 100.3 F H Temperature Source Oral Pulse Rate 70 108 H Pulse Rate [Right Brachial] 88 Respiratory Rate 16 16 Blood Pressure 111/55 L 114/63 Blood Pressure [Right Arm] 91/42 L Blood Pressure Mean [Right Arm] 58 Blood Pressure Source Automatic Cuff Blood Pressure Source [Right Arm] Manual Cuff/ Doppler Blood Pressure Position Sitting Blood Pressure Position [Right Arm] Sitting 02 Sat by Pulse Oximetry 97 95 97 Oxygen Delivery Method Room Air Room Air Room Air 08/05/21 03:45 08/05/21 04:00 08/05/21 06:09 Temperature 101.9 F H 99.5 F Temperature Source Oral Pulse Rate 111 H 107 H 96 H Pulse Rate [Right Brachial] Respiratory Rate 16 Blood Pressure 114/63 97/58 L 93/57 L Blood Pressure [Right Arm] Blood Pressure Mean [Right Arm] Blood Pressure Source Automatic Cuff Blood Pressure Source [Right Arm] Blood Pressure Position Sitting Blood Pressure Position [Right Arm] 02 Sat by Pulse Oximetry 96 95 93 L Oxygen Delivery Method Room Air Room Air Room Air 08/05/21 06:38 Temperature Temperature Source Pulse Rate 80 Pulse Rate [Right Brachial] Respiratory Rate 16 Blood Pressure 93/54 L Blood Pressure [Right Arm] Blood Pressure Mean [Right Arm] Blood Pressure Source Automatic Cuff Blood Pressure Source [Right Arm] Blood Pressure Position Sitting Blood Pressure Position [Right Arm] 02 Sat by Pulse Oximetry 95 Oxygen Delivery Method Room Air - Lab Data Lab results reviewed: Yes: I reviewed the patient's lab results. Lab Results 08/05/21 01:35: Urine Color Yellow, Urine Appearance Clear, Urine pH 6.0, Ur Specific [place] <= 1.005, Urine Protein Negative, Urine Glucose (UA) Negative, Urine Ketones Negative, Urine Blood Trace-i, Urine Nitrate Negative, Urine Bilirubin Negative, Urine Urobilinogen 1.0, Ur Leukocyte Esterase Negative, Urine RBC 5-10, Urine WBC 3-5, Ur Squamous Epith Cells 5-10, Urine Bacteria None 08/05/21 01:35: WBC 9.1, RBC 3.98 L, Hgb 12.7, Hct 39.2, MCV 98.6, MCH 31.9 H, MCHC 32.3, RDW 13.4, Plt Count 192 D, MPV 9.9, Neut % (Auto) 78.7, Lymph % (Auto) 17.5, [place] % (Auto) 2.1, Eos % (Auto) 0.3, Baso % (Auto) 1.5, Neut # (Auto) 7.2, Lymph # (Auto) 1.6, [place] # (Auto) 0.2, Eos # (Auto) 0.0, Baso # (Auto) 0.1, ESR 120 H 08/05/21 01:35: Sodium 136, Potassium 3.3 L, Chloride 97 L, Carbon Dioxide 36 H, Anion Gap 6.3, BUN 9, Creatinine 0.80, Estimated Creat Clear 71, Estimated GFR 74, Est GFR ( Amer) 89, Glucose 106 H, Calcium 8.4, Total Bilirubin 0.4, AST 47 H, ALT 88 H, Alkaline Phosphatase 148 H, C-Reactive Protein 215.6 H, Total Protein 6.5, Albumin 3.4 L, Globulin 3.1, Albumin/Globulin Ratio 1.1, Amylase 53, Lipase 92 08/05/21 01:35: Lactate 1.0 08/05/21 02:00: SARS-CoV-2 (PCR) Not detected, Influenza A Untype (PCR) Not detected, Influenza Type B (PCR) Not detected Result diagrams: 08/05/21 01:35 08/05/21 01:35 Orders (Tests/Meds): ED Alina
--- NOTE | 2021-08-05 04:00 | PC.NURSE ---
pt sleeping. no new needs
--- NOTE | 2021-08-05 04:28 | XR_ITS ---
PROCEDURE INFORMATION: Exam: XR Chest Exam date and time: 08/05/2021 4:27 AM Age: 60 years old Clinical indication: Fever; Prior surgery TECHNIQUE: Imaging protocol: XR of the chest. Views: 2 views. COMPARISON: CR XR CHEST PORTABLE 08/01/2021 1:02 PM FINDINGS: Tubes, catheters and devices: Spinal electrodes are in place. Lungs: Left upper lung calcified granuloma. Pleural spaces: Unremarkable. No pleural effusion. No pneumothorax. Heart/Mediastinum: Unremarkable. No cardiomegaly. Bones/joints: Unremarkable. IMPRESSION: No acute cardiopulmonary abnormality.
--- NOTE | 2021-08-05 06:14 | PC.NURSE ---
pt resting in bed, A&O times 3. Updated on POC. Provided drink at this time. PT had no other needs
[2021-08-16 20:45] LABS: Hep A Ab, IgM NEGATIVE; Hepatitis B Core Antibody IgM NEGATIVE; Hepatitis B Surface Antigen NEGATIVE; Hepatitis C Antibody <0.1
== END 2021-08-05 08:14 | disposition home or self-care (01) ==
PROVIDERS: Emergency Provider Emergency Medicine; PCP Nurse Practitioner Family
DX: R50.9 Fever, unspecified (principal); R70.0 Elevated erythrocyte sedimentation rate; R79.82 Elevated C-reactive protein (CRP); F41.9 Anxiety disorder, unspecified; F32.A Depression, unspecified; Z88.0 Allergy status to penicillin; Z88.2 Allergy status to sulfonamides; Z80.9 Family history of malignant neoplasm, unspecified; Z83.3 Family history of diabetes mellitus; Z82.3 Family history of stroke; Z82.49 Family history of ischemic heart disease and other diseases of the circulatory system
CPT/HCPCS: 71046; 74176; 80053; 80074; 81001; 82150; 83605; 83690; 85025; 85651; 86140; 87040; 96365; 96375; 99284; C9803; J2405; U0003; U0005

== ENCOUNTER → 2021-08-24 09:36 | Outpatient (POV) | payer MEDICARE, MEDICAID, SELFPAY ==
[2021-08-24 11:15] VITALS: BP 93/41; PULSE 77; RESP 17; TEMP 36.6; O2SAT 97; BMI 23.8
--- NOTE | 2021-08-24 12:38 | HMH.PAINSOAP ---
[facility] Pain Management SOAP Note Subjective:: Patient is a pleasant 52-year-old female who presents today for follow-up. Patient is coming treated for degenerative disc disease of lumbar spine with lumbar radiculopathy symptoms. We have been managing this patient with injective therapy. She typically gets more than 3 months of relief after each lumbar epidural steroid injection. Her last epidural injection was on January 30, 2021. Today, patient states that she has been having worsening low back pain that radiates to bilateral lower extremities. She had tried to go to get a repeat lumbar epidural steroid injection in the last 2 to 3 months however this was denied by insurance. She is wanting to know if we can try to get her scheduled again. Denies any recent falls or traumas. Patient did state that she was just at recently for a week for a Tick related issue. Patient is also being managed with a NuUbitricitytra stimulator that is still working. Rates her pain today as 6 out of 10. Review of Systems: General: No recent weight changes, no fever, no sleep disturbances Respiratory: No cough, no shortness of air, no recurring pulmonary infections Cardiovascular/peripheral vascular: No chest pain, no palpitations, no edema, no shortness of breath Gastrointestinal: No new onset incontinence, normal bowel movements reported Genitourinary: No new onset incontinence Musculoskeletal: Low back pain Psychiatric: [Normal mood/affect] Neurological: [Denies weakness in extremities], [denies balance issues] Objective:: Physical Exam: General: Alert and oriented x3, no acute distress, pleasant and cooperative Lungs: Respirations even and unlabored, symmetrical chest expansion Eyes: PERRL Musculoskeletal: Flexion and extension of lumbar [spine] somewhat guarded secondary to pain, [antalgic gait noted] Neurological: Speech clear, no gross sensory deficit Assessment:: Degenerative disc disease of lumbar spine with lumbar radiculopathy symptoms Plan:: Patient presents today with worsening low back pain that radiates to bilateral lower extremities. She typically gets lumbar epidural steroid injection for this. She gets more than 3 months of relief after each epidural steroid injection. She is wanting to reschedule a repeat injection. Patient has tried and failed conservative therapy such as oral medication, physical therapy, and home exercises for her in 6 weeks. We will schedule the patient for a lumbar epidural steroid injection at L4-L5. Risk and benefits have been discussed with the patient. Patient would like to proceed with this procedure. Patient is not on any blood thinners. Patient has been instructed to contact the clinic with any concerns before the next appointment. Dr. Mata has reviewed this note and agrees with this plan of care. This note was dictated using voice recognition software and make contain errors or omissions. [facility] History Medical History: Reports:: Anxiety, Depression, Gastroesophageal Reflux Disease(GERD), Lung Disease (sleep apnea-does not use cpap) Denies:: Cancer, Diabetes Mellitus Type 1, Diabetes Mellitus Type 2, Internal Pacemaker, MRSA, Seizures *Have you ever received a pneumonia vaccine?: No *Have you received a flu vaccine this season?: Yes Other Medical History: Reports: Arthritis, Fibromyalgia, Sinus Problems, Other. Denies: Blood Transfusion Reaction Laterality Cases: Bilateral: Tonsillectomy, Other Other Surgeries: Yes: Appendectomy, Cholecystectomy, Colostomy, Hysterectomy-Total, Sinus Surgery, Other (Dental extraction). No: Pacemaker Amputation: No Fractures: No - *Social History Smoking Status: Former smoker Tobacco Type: cigarettes # Packs/Day (cigarettes): 1 Alcohol Intake: never Alcohol Intake Frequency:: holidays/special occasions only Substance Use Type: denies use *Occupational Status:: other Housing: house Household Members: none *Travel in the last 8 weeks: None - Psychiatric History Pschychiatric
== END ==
PROVIDERS: Visit Provider Student in an Organized Health Care Education/Training Program
DX: M51.16 Intervertebral disc disorders with radiculopathy, lumbar region (principal)
CPT/HCPCS: 99212; G0463

== ENCOUNTER → 2021-10-16 07:55 | Outpatient (CLI) | payer MEDICARE, MEDICAID, SELFPAY ==
--- NOTE | 2021-10-16 07:58 | MM_ITS ---
PROCEDURE INFORMATION: Exam: MG Bilateral Screening 3D Mammography Exam date and time: 10/16/2021 7:53 AM Age: 60 years old Clinical indication: Screening examination TECHNIQUE: Imaging protocol: Bilateral Screening tomosynthesis and 2D mammography including computer-aided detection (CAD) when performed. COMPARISON: 1. MG MM DIG SCREENING MAMM BI W/CAD 10/08/2020 1:01 PM 2. MG MM DIG SCREENING MAMM BI W/CAD 10/08/2019 4:01 PM FINDINGS: MAMMOGRAPHY: Breast composition: There are scattered areas of fibroglandular density. Mass: None. Architectural distortion: None. Calcifications: No suspicious calcifications. Asymmetric density: None. Skin thickening: None. Axillary adenopathy: None. IMPRESSION: No mammographic evidence of malignancy. Annual screening is recommended unless otherwise clinically indicated. ASSESSMENT: BI-RADS Category 1: Negative
== END ==
PROVIDERS: PCP Nurse Practitioner Family; Visit Provider Nurse Practitioner Family
DX: Z12.31 Encounter for screening mammogram for malignant neoplasm of breast (principal)
CPT/HCPCS: 77063; 77067

== ENCOUNTER 2021-11-14 11:12 | Emergency (ER) | payer MEDICARE, MEDICAID, SELFPAY ==
[2021-11-14 11:13] VITALS: BP 122/63; PULSE 78; RESP 16; TEMP 37.1; O2SAT 98; BMI 23.0
[2021-11-14 11:30] VITALS: BP 125/53; PULSE 94; O2SAT 95
[2021-11-14 11:36] LABS: Microscopic, Urine URINE MICROSCOPIC (MICROSCOPIC)
[2021-11-14 11:37] LABS: Appearance,Urine CLEAR (Clear); Blood, Urine 3+ (Negative); Color,Urine YELLOW (Yellow); Glucose,Urine (UA) Negative (Negative); Ketones,Urine 1+ (Negative); Leukocyte Esterase,Urine Negative (Negative); Nitrate,Urine Negative (Negative); Protein,Urine 1+ (Negative); Specific Gravity, Urine >= 1.030 (1.005-1.030); Urobilinogen,Urine 0.2 EU/dl (0.2)
[2021-11-14 11:40] LABS: Bilirubin,Urine 1+ (Negative)
--- NOTE | 2021-11-14 11:40 | HMH.EDGENADL ---
Discharge Plan Disposition Patient Disposition: Home, Self-Care Condition: Good Prescriptions Prescriptions: New ondansetron 4 mg tablet,disintegrating 4 mg PO Q6HP PRN (Reason: nausea and vomiting) Qty: 12 0RF No Action loratadine 10 MG tablet 20 mg PO ONCE tramadol 50 MG tablet 50 mg PO TIDP PRN (Reason: PAIN) buspirone 10 MG tablet 10 mg PO BID methocarbamol 500 MG tablet 500 mg PO Q8 PRN (Reason: Muscle Spasm) 4 Days Qty: 12 0RF pregabalin 150 MG capsule 1 tab PO TID Label Comments: L.acidoph, paracasei,B. lactis 1 EACH capsule 1 each PO DAILY pantoprazole 40 MG tablet,delayed release (DR/EC) 40 mg PO DAILY colestipol 5 GM packet 5 gm PO NEEDED PRN (Reason: bloating) hydrocodone-acetaminophen 1 TAB tablet 1 tab PO BID ondansetron 4 MG tablet,disintegrating 4 mg PO TIDP PRN (Reason: Nausea) 3 Days Qty: 9 0RF sucralfate 1 GM tablet 1 gm PO TID Referrals Follow up/Referrals: Naya Goodwin [Primary Care Provider] - See instructions Activity Restrictions/Add. Instructions Additional Instructions/Restrictions: Take Zofran as prescribed. If you have any other concerning signs or symptoms, return to the emergency department or your primary care doctor for further evaluation. Clinical Impressions Clinical Impression: Gastritis Instructions Patient Instructions: DI for Diarrhea and Traveler's Diarrhea -- Adult, DI for Diarrhea and Traveler's Diarrhea -- Child, DI for Nausea -- Adult, DI for Nausea -- Child Discharge ED Provider: Kalyan Nance General Adult HPI General Chief complaint: Nausea/Vomiting/Diarrhea Stated complaint: Vomitting, weakness, BA, Chills Time Seen by Provider: 11/14/21 11:20 Mode of Arrival: Wheelchair Source of Information: Patient Limitations: No Limitations Description of Symptoms (Recalled from ER Triage Doc. by RN): to ed per pvt car with c/o nausea, vomiting, abd pain starting lastnight. pt denies fever,chills, diarrhea. History of Present Illness HPI narrative: This is a 60-year-old female with history of gastritis presenting with vomiting. Patient states that she has acute on chronic back pain, was taking her tramadol in 1 day prior to arrival began vomiting. She tried taking home Phenergan, but vomited that up as well. Vomiting is nonbloody, nonbilious and she is thrown up 2-3 times since 11/13 evening. Nothing in particular makes the vomiting worse. Vomiting is associated with fevers and chills, but denies rash, recent travel, diarrhea, abdominal pain, dysuria, hematuria, cough, shortness of breath, chest pain, or any other concerning history. Related Data Home Medications Medication Instructions Recorded Confirmed pregabalin 150 mg capsule 1 tab PO TID NEUROPATHIC PAIN 04/26/17 08/24/21 loratadine 10 mg tablet 20 mg PO ONCE allergies 08/23/17 08/24/21 L.acidoph, paracraouliB. lactis 10 1 each PO DAILY bowel health 12/08/18 08/24/21 billion cell capsule tramadol 50 mg tablet 50 mg PO TIDP PRN PAIN 05/04/19 08/24/21 pantoprazole 40 mg tablet,delayed 40 mg PO DAILY stomach 07/03/19 08/24/21 release colestipol 5 gram oral packet 5 gm PO NEEDED PRN bloating 07/06/19 08/24/21 buspirone 10 mg tablet 10 mg PO BID stomach 09/28/19 08/24/21 hydrocodone 5 mg-acetaminophen 325 1 tab PO BID Pain 01/30/21 08/24/21 mg tablet sucralfate 1 gram tablet 1 gm PO TID . 08/24/21 08/24/21 Previous Rx's Medication Instructions Recorded methocarbamol 500 mg tablet 500 mg PO Q8 PRN Muscle Spasm 4 07/15/20 days #12 tabs ondansetron 4 mg disintegrating 4 mg PO TIDP PRN Nausea 3 days #9 08/01/21 tablet tabs ondansetron 4 mg disintegrating 4 mg PO Q6HP PRN nausea and 11/14/21 tablet vomiting #12 tabs Allergies Allergy/AdvReac Type Severity Reaction Status Date / Time Penicillins [PENICILLINS] Allergy Unknown Verified 01/30/21 12:42 sulfamethoxazole AdvReac Verified 01/30/21 12:42 [From B
[2021-11-14 11:50] LABS: RBC,Urine 20-50 #/hpf (0-3)
[2021-11-14 11:57] LABS: Basophils # 0.1 K/mm3 (0-0.2); Eosinophils % 0.2 % (0.1-12.0); Hematocrit 46.7 % (37.0-47.0); Hemoglobin 15.6 g/dL (12.2-16.2); Lymphocytes # 1.1 K/mm3 (0.7-4.5); Lymphocytes % 13.8 % (10-50); Mean Corpuscular HGB Conc 33.5 g/dL (31.8-35.4); Mean Corpuscular Hemoglobin 32.6 pg (27.0-31.2); Mean Corpuscular Volume 97.2 fl (81-99); Mean Platelet Volume 8.7 fl (7.4-10.4); Monocytes # 0.3 K/mm3 (0.1-1.0); Monocytes % 3.9 % (1.7-9.3); Neutrophils # 6.5 K/mm3 (1.8-7.8); Neutrophils % 81.1 % (37.0-80.0); Platelet Count 248 K/mm3 (142-424); Red Cell Distribution Width 14.1 % (11.5-17.5)
[2021-11-14 12:00] VITALS: BP 132/54; PULSE 91; O2SAT 97
[2021-11-14 12:02] LABS: Chloride 100 mmol/L (98-107)
[2021-11-14 12:03] LABS: Potassium 4.1 mmoL/L (3.5-5.1); Sodium 143 mmol/L (136-145)
[2021-11-14 12:05] LABS: Alanine Aminotransferase 29 U/L (12-78); Aspartate Amino Transferase 32 U/L (14-36); Blood Urea Nitrogen 10 mg/dl (7-17); Creatinine Clearance Estimated 82 mL/min (50-200); Estimated Glomerular Filt Rate 86 ml/min (>60); GFR (African American) 104 ML/MIN (>60); Lipase 68 U/L (23-300)
[2021-11-14 12:06] LABS: Albumin Level 4.7 g/dl (3.5-5.0); Albumin/Globulin Ratio 1.4 (1.1-1.8); Alkaline Phosphatase 143 U/L (38-126); Anion Gap 17.1 mEq/L (5-15); Bilirubin,Total 0.6 mg/dl (0.2-1.3); Calcium 9.4 mg/dl (8.4-10.2); Carbon Dioxide 30 mmol/L (22.0-30.0); Globulin 3.3 g/dL (1.3-3.2); Glucose 119 mg/dl (74-100)
[2021-11-14 12:30] VITALS: BP 125/67; PULSE 102; RESP 18; O2SAT 98
[2021-11-14 13:01] VITALS: BP 119/66; PULSE 99; RESP 20; O2SAT 98
[2021-11-14 13:02] LABS: Coronavirus 19, PCR Not Detected (NotDetected); Influenza A, PCR Not Detected (NotDetected); Influenza B, PCR Not Detected (NotDetected)
[2021-11-14 16:26] VITALS: BP 132/74; PULSE 78; RESP 16; TEMP 36.6; O2SAT 98
== END 2021-11-14 16:29 | disposition home or self-care (01) ==
PROVIDERS: Emergency Provider Emergency Medicine; PCP Nurse Practitioner Family
DX: K29.70 Gastritis, unspecified, without bleeding (principal); R53.1 Weakness; M54.9 Dorsalgia, unspecified; G89.29 Other chronic pain; Z20.822 Contact with and (suspected) exposure to COVID-19; Z79.1 Long term (current) use of non-steroidal anti-inflammatories (NSAID); Z79.899 Other long term (current) drug therapy; Z88.0 Allergy status to penicillin; Z88.5 Allergy status to narcotic agent; Z88.8 Allergy status to other drugs, medicaments and biological substances
CPT/HCPCS: 80053; 81001; 83690; 85025; 96360; 99284; C9803; J2405; U0003; U0005

== ENCOUNTER → 2021-11-18 12:26 | Outpatient (CLI) | payer MEDICARE, MEDICAID, SELFPAY ==
--- NOTE | 2021-11-18 12:40 | CT_ITS ---
FINAL REPORT TECHNIQUE: After the administration of intravenous contrast, axial images were obtained through the abdomen and pelvis by computed tomography. This study was performed with technique to keep radiation doses as low as reasonably achievable, (ALARA). Individualized dose reduction techniques using automated exposure control or adjustment of the MA and/or KV according to the patient's size were employed. CLINICAL HISTORY: ABD PAIN,LT LOWER QUAD PAIN COMPARISON: 08/05/2021 FINDINGS: Abdomen: The lung bases are clear. The liver is normal in size and attenuation. Patient is status post cholecystectomy. The spleen is unremarkable. The adrenals are normal. The pancreas is unremarkable. The kidneys enhance appropriately. The aorta is normal in caliber. There is no free fluid or adenopathy. Pelvis: There is streak artifact arising from spinal stimulator. There is moderate diverticulosis. Abnormal mucosal thickening is seen throughout the distal descending and sigmoid colon with pericolonic inflammation. Findings could be related to acute or infectious descending and sigmoid colitis. The appendix is not identified. The urinary bladder is unremarkable. There is no free fluid or adenopathy. IMPRESSION: Moderate diverticulosis with abnormal mucosal thickening throughout the distal descending and sigmoid colon and pericolonic inflammation. Findings could be related to acute or infectious descending and sigmoid colitis. Reviewed, Interpreted and Dictated by Agustin Hood MD Transcribed by Glory Jnoes Authenticated and [facility]
== END ==
PROVIDERS: PCP Nurse Practitioner Family; Visit Provider Nurse Practitioner Family
DX: R10.32 Left lower quadrant pain (principal)
CPT/HCPCS: 74177; Q9967

== ENCOUNTER 2021-12-01 19:38 | Emergency (ER) | payer MEDICARE, MEDICAID, SELFPAY ==
[2021-12-01] VITALS (9 sets, daily range): BP systolic 114–128; BP diastolic 48–65; PULSE 85–98; RESP 16; TEMP 36.6–36.9; O2SAT 94–99; BMI 23.3
--- NOTE | 2021-12-01 20:08 | PC.NURSE ---
Step daughter Shawna called and requests that we call when we know if she will be discharged since stepdaughter lives one hour away and will be responsible for driving her home. [phone].
--- NOTE | 2021-12-01 20:40 | CT_ITS ---
PROCEDURE INFORMATION: Exam: CT Abdomen And Pelvis With Contrast Exam date and time: 12/01/2021 9:28 PM Age: 61 years old Clinical indication: Abdominal pain; Localized; Left lower quadrant (llq); Additional info: Llq abd pain TECHNIQUE: Imaging protocol: Computed tomography of the abdomen and pelvis with contrast. Radiation optimization: All CT scans at this facility use at least one of these dose optimization techniques: automated exposure control; mA and/or kV adjustment per patient size (includes targeted exams where dose is matched to clinical indication); or iterative reconstruction. Contrast material: ISOVUE; Contrast volume: 75 ml; Contrast route: IV; COMPARISON: CT ABDOMEN PELVIS W CON 11/18/2021 12:55 PM FINDINGS: Tubes, catheters and devices: Thoracic spinal device. Liver: Mild fatty infiltration of the liver along the falciform ligament. Gallbladder and bile ducts: Mild post cholecystectomy ectasia. Gallbladder is absent. Pancreas: Normal. No ductal dilation. Spleen: Normal. No splenomegaly. Adrenal glands: Normal. No mass. Kidneys and ureters: Normal. No hydronephrosis. Stomach and bowel: Moderate sigmoid diverticulosis without diverticulitis. Duodenal diverticula. Small gastric varices. Appendix: No evidence of appendicitis. Intraperitoneal space: Unremarkable. No free air. No significant fluid collection. Vasculature: The arteries demonstrate moderate atherosclerotic disease. Lymph nodes: Unremarkable. No enlarged lymph nodes. Urinary bladder: Unremarkable as visualized. Reproductive: Status post hysterectomy. Bones/joints: Unremarkable. No acute fracture. Soft tissues: Tiny fat containing umbilical hernia. IMPRESSION: No acute findings.
[2021-12-01 20:49] LABS: Basophils # 0.1 K/mm3 (0-0.2); Basophils % 1.5 % (0.1-2.0); Eosinophils # 0.1 K/mm3 (0.0-0.4); Eosinophils % 1.8 % (0.1-12.0); Hematocrit 45.5 % (37.0-47.0); Hemoglobin 14.6 g/dL (12.2-16.2); Lymphocytes # 2.6 K/mm3 (0.7-4.5); Lymphocytes % 33.1 % (10-50); Mean Corpuscular HGB Conc 32.1 g/dL (31.8-35.4); Mean Corpuscular Hemoglobin 32.1 pg (27.0-31.2); Mean Platelet Volume 8.7 fl (7.4-10.4); Monocytes # 0.4 K/mm3 (0.1-1.0); Monocytes % 4.9 % (1.7-9.3); Neutrophils # 4.7 K/mm3 (1.8-7.8); Neutrophils % 58.7 % (37.0-80.0); Platelet Count 295 K/mm3 (142-424); Red Blood Count 4.55 M/mm3 (4.20-5.40); Red Cell Distribution Width 14.1 % (11.5-17.5)
[2021-12-01 20:53] LABS: Alanine Aminotransferase 21 U/L (12-78); Albumin Level 3.8 g/dl (3.5-5.0); Albumin/Globulin Ratio 1.2 (1.1-1.8); Alkaline Phosphatase 89 U/L (38-126); Aspartate Amino Transferase 28 U/L (14-36); Bilirubin,Total 0.2 mg/dl (0.2-1.3); Blood Urea Nitrogen 9 mg/dl (7-17); Calcium 8.8 mg/dl (8.4-10.2); Carbon Dioxide 30 mmol/L (22.0-30.0); Chloride 104 mmol/L (98-107); Creatinine Clearance Estimated 93 mL/min (50-200); Estimated Glomerular Filt Rate 102 ml/min (>60); GFR (African American) 124 ML/MIN (>60); Globulin 3.1 g/dL (1.3-3.2); Glucose 100 mg/dl (74-100); Sodium 139 mmol/L (136-145); Total Protein,Serum 6.9 g/dl (6.3-8.2)
--- NOTE | 2021-12-01 21:04 | HMH.EDABDPAI ---
Discharge Plan Disposition Patient Disposition: Home, Self-Care Chief Complaint: Abdominal Pain Prescriptions Prescriptions: No Action loratadine 10 MG tablet 20 mg PO ONCE buspirone 10 MG tablet 10 mg PO BID methocarbamol 500 MG tablet 500 mg PO Q8 PRN (Reason: Muscle Spasm) 4 Days Qty: 12 0RF pregabalin 150 MG capsule 1 tab PO TID Label Comments: Marcy paracasei,B. lactis 1 EACH capsule 1 each PO DAILY pantoprazole 40 MG tablet,delayed release (DR/EC) 40 mg PO DAILY ondansetron 4 mg tablet,disintegrating 4 mg PO Q6HP PRN (Reason: nausea and vomiting) Qty: 12 0RF Referrals Follow up/Referrals: Naya Goodwin [Primary Care Provider] - See instructions Clinical Impressions Clinical Impression: Abdominal pain Instructions Patient Instructions: DI for Acute Abdominal Pain Discharge ED Provider: Mejia Vinson Abdominal Pain HPI General Chief Complaint: Abdominal Pain Stated Complaint: V&D Abd Pain Time Seen by Provider: 12/01/21 21:04 Mode of Arrival: Ambulatory Source of Information: Patient and Medical Record Limitations: No Limitations Description of Symptoms (Recalled from ER Triage Doc. by RN): PT DX WITH DIVERTICULITIS VS COLITIS. PT STATES SHE COMPLETED HER ANTIBIOTICS TODAY BUT CONTINUES TO HAVE ABDOMINAL PAIN IN LEFT LOWER QUAD. PT ALSO REPORTS N/V/D. History of Present Illness HPI narrative: this is a pt who has crampy abd pain with diarrhea who reports being treated for colitis and has finished abx - no blood in stool - no fever MD complaint: abdominal pain Onset (ago): day(s) Consistency: intermittent Location: LLQ Severity: moderate Quality: aching Radiation: LLQ Context: history of similar episodes Related Data Home Medications Medication Instructions Recorded Confirmed pregabalin 150 mg capsule 1 tab PO TID NEUROPATHIC PAIN 04/26/17 12/01/21 loratadine 10 mg tablet 20 mg PO ONCE allergies 08/23/17 12/01/21 LYosefacidoph, paracasei,B. lactis 10 1 each PO DAILY bowel health 12/08/18 12/01/21 billion cell capsule pantoprazole 40 mg tablet,delayed 40 mg PO DAILY stomach 07/03/19 12/01/21 release buspirone 10 mg tablet 10 mg PO BID stomach 09/28/19 12/01/21 Previous Rx's Medication Instructions Recorded methocarbamol 500 mg tablet 500 mg PO Q8 PRN Muscle Spasm 4 07/15/20 days #12 tabs ondansetron 4 mg disintegrating 4 mg PO Q6HP PRN nausea and 11/14/21 tablet vomiting #12 tabs Allergies Allergy/AdvReac Type Severity Reaction Status Date / Time Penicillins [PENICILLINS] Allergy Unknown Verified 01/30/21 12:42 sulfamethoxazole AdvReac Verified 01/30/21 12:42 [From Bactrim] trimethoprim [From Bactrim] AdvReac Verified 01/30/21 12:42 PFSH PFSH Social History Smoking Status: Former smoker second hand exposure: Yes alcohol intake: never substance use type: denies use current occupational status: other Travel in the last 8 weeks: None household members: none housing: house current occupational exposures/hazards: No caffeine: Yes ROS Obtained: Yes All systems reviewed & no additional complaints except as documented Physical Exam General General appearance: alert Head Head exam: normocephalic Eye Eye exam: Present PERRL and EOMI ENT ENT exam: Present mucous membranes moist Neck Neck exam: Present trachea midline Respiratory Respiratory exam: Absent respiratory distress Cardiovascular Cardiovascular exam: Present regular rate Abdominal Exam Abdominal exam: Present soft and tenderness; Absent guarding, rebound or rigidity Abdominal tenderness: Present LLQ and moderate Extremities Exam Extremities exam: Present full ROM Neurological Exam Neurological exam: Present alert, oriented X3 and CN II-XII intact Psychiatric Psychiatric exam: Present normal affect Skin Skin exam: Absent rash Medical Decision Making Medical Records Medical records reviewed: Yes I reviewed the
[2021-12-01 21:26] LABS: Erythrocyte Sedimentation Rate 20 mm/hr (0-30)
[2021-12-01 21:27] LABS: Anion Gap 8.8 mEq/L (5-15); Lipase 90 U/L (23-300); Potassium 3.8 mmoL/L (3.5-5.1)
--- NOTE | 2021-12-01 21:31 | PC.NURSE ---
PT GOING TO CT
--- NOTE | 2021-12-01 22:01 | PC.NURSE ---
PT AMBULATED TO BATHROOM. URINE COLLECTED. NO COMPLAINTS VOICED. NO ACUTE DISTRESS NOTED.
[2021-12-01 22:08] LABS: Microscopic, Urine URINE MICROSCOPIC (MICROSCOPIC)
[2021-12-01 22:09] LABS: Appearance,Urine CLEAR (Clear); Bilirubin,Urine Negative (Negative); Blood, Urine Negative (Negative); Color,Urine YELLOW (Yellow); Glucose,Urine (UA) Negative (Negative); Ketones,Urine Negative (Negative); Leukocyte Esterase,Urine Negative (Negative); Nitrate,Urine Negative (Negative); PH,Urine 6.5 (5.0-8.5); Protein,Urine Negative (Negative); Urobilinogen,Urine 0.2 EU/dl (0.2)
[2021-12-01 22:30] LABS: WBC,Urine Occasional #/hpf (0-3)
[2021-12-01 22:31] LABS: Bacteria,Urine Trace /lpf
--- NOTE | 2021-12-01 22:46 | PC.NURSE ---
Notified Shawna, stepdaughter, that mother will be discharged home and she can make her way to the hospital.
--- NOTE | 2021-12-01 23:36 | PC.NURSE ---
ordered outpatient diarrhea panel for patient. Patient and family were given order form, collection container for toilet and a specimen cup with instructions on how to return the specimen. Patient and family were also advised to use soap and water to wash their hands and to use bleach wipes for cleaning up until her specimen results.
== END 2021-12-01 23:31 | disposition home or self-care (01) ==
PROVIDERS: Emergency Provider Emergency Medicine; PCP Nurse Practitioner Family
DX: R10.9 Unspecified abdominal pain (principal); Z79.899 Other long term (current) drug therapy; Z88.0 Allergy status to penicillin; Z88.1 Allergy status to other antibiotic agents; Z87.891 Personal history of nicotine dependence; Z87.19 Personal history of other diseases of the digestive system
CPT/HCPCS: 74177; 80053; 81001; 83690; 85025; 85651; 86140; 96365; 96375; 99284; J2405; Q9967

== ENCOUNTER → 2021-12-02 12:05 | Outpatient (CLI) | payer MEDICARE, MEDICAID, SELFPAY | PROVIDERS: Visit Provider Emergency Medicine | DX: R10.9 Unspecified abdominal pain (principal); R19.7 Diarrhea, unspecified ==

== ENCOUNTER → 2021-12-03 11:34 | Outpatient (CLI) | payer MEDICARE, MEDICAID, SELFPAY ==
[2021-12-03 11:40] LABS: Adenovirus F 40/41, stool Not Detected (NotDetected); Astrovirus Not Detected (NotDetected); Campylobacter Not Detected (NotDetected); Clostridium Difficile A/B, PCR Not Detected (NotDetected); Cryptosporidium Not Detected (NotDetected); Cyclospora Cayetanesis Not Detected (NotDetected); Entamoeba histolytica Not Detected (NotDetected); Enteroaggregative E coli Not Detected (NotDetected); Enteropathogenic E coli Not Detected (NotDetected); Enterotoxigenic E coli Not Detected (NotDetected); Giardia lamblia Not Detected (NotDetected); Norovirus Not Detected (NotDetected); Plesimonas Shigalloides, PCR Not Detected (NotDetected); Rotavirus A Not Detected (NotDetected); Salmonella, PCR Not Detected (NotDetected); Sapovirus Not Detected (NotDetected); Shiga-like toxin E coli Not Detected (NotDetected); Shigella Enterovasive E coli Not Detected (NotDetected); Vibrio Cholerae Not Detected (NotDetected); Vibrio, PCR Not Detected (NotDetected); Yersinia Entercolitica, PCR Not Detected (NotDetected)
== END ==
PROVIDERS: PCP Emergency Medicine; Visit Provider Emergency Medicine
DX: R19.7 Diarrhea, unspecified (principal); R10.9 Unspecified abdominal pain
CPT/HCPCS: 87506

== ENCOUNTER → 2022-01-04 08:03 | Outpatient (CLI) | payer MEDICARE, MEDICAID, SELFPAY ==
[2022-01-07 00:07] LABS: Pancreatic Elastase, Fecal 473 (>200)
== END ==
PROVIDERS: PCP Nurse Practitioner Family; Visit Provider Internal Medicine Gastroenterology
DX: R10.32 Left lower quadrant pain (principal); R14.0 Abdominal distension (gaseous); R11.0 Nausea; R15.2 Fecal urgency; K57.92 Diverticulitis of intestine, part unspecified, without perforation or abscess without bleeding
CPT/HCPCS: 82656

== ENCOUNTER → 2022-01-26 11:34 | Outpatient (CLI) | payer MEDICARE, MEDICAID, SELFPAY ==
[2022-01-26 13:45] VITALS: BMI 23.9
== END ==
PROVIDERS: PCP Nurse Practitioner Family; Visit Provider Nurse Practitioner Family
DX: Z71.3 Dietary counseling and surveillance (principal); K58.8 Other irritable bowel syndrome
CPT/HCPCS: 97802

== ENCOUNTER 2022-07-26 11:46 | Emergency (ER) | payer MEDICARE, MEDICAID, SELFPAY ==
[2022-07-26] VITALS (7 sets, daily range): BP systolic 96–131; BP diastolic 46–89; PULSE 64–91; RESP 16–17; TEMP 36.5; O2SAT 92–99; BMI 23.3
--- NOTE | 2022-07-26 12:08 | PC.NURSE ---
DR PITT AT BEDSIDE
--- NOTE | 2022-07-26 12:13 | CT_ITS ---
PROCEDURE INFORMATION: Exam: CT Abdomen And Pelvis With Contrast Exam date and time: 07/26/2022 1:10 PM Age: 61 years old Clinical indication: Abdominal pain; Generalized; Additional info: Abd pain TECHNIQUE: Imaging protocol: Computed tomography of the abdomen and pelvis with contrast. Radiation optimization: All CT scans at this facility use at least one of these dose optimization techniques: automated exposure control; mA and/or kV adjustment per patient size (includes targeted exams where dose is matched to clinical indication); or iterative reconstruction. Contrast material: ISOVUE; Contrast volume: 75 ml; Contrast route: IV; REPORTING DATA: Count of CT and Cardiac NM exams in prior 12 months: This patient has received 3 known CTs and 0 known cardiac nuclear medicine studies in the 12 months prior to the current study. COMPARISON: CT ABDOMEN PELVIS W CON 12/01/2021 9:28 PM FINDINGS: Tubes, catheters and devices: There is an electronic neural stimulatory device with the paddle implanted within the right posterior flank and electrode tips extending above the field of view within the thoracic spinal canal. Lungs: Mild hypoventilatory changes at the lung bases which are otherwise clear. Liver: Normal. No mass. Gallbladder and bile ducts: Gallbladder has been removed. There is mild-moderate dilatation of the bile ducts, stable. Pancreas: Pancreas is unremarkable. There is minimal dilatation of main pancreatic duct, stable in presumed longstanding. Spleen: Normal. No splenomegaly. Adrenal glands: Normal. No mass. Kidneys and ureters: Normal. No hydronephrosis. Stomach and bowel: 3 cm duodenal diverticulum arising from the 3rd portion duodenal sweep unchanged. Multiple diverticuli descending and sigmoid colon. No evidence of acute diverticulitis. Appendix: No evidence of appendicitis. Intraperitoneal space: Unremarkable. No free air. No significant fluid collection. Vasculature: Scattered atherosclerotic changes of the abdominal aorta and iliac vessels. No aortic aneurysm. Lymph nodes: Unremarkable. No enlarged lymph nodes. Urinary bladder: There is mild diffuse bladder wall thickening on the current study not evident previously that may in part be due to inadequate bladder distention but should be correlated for possible cystitis. Reproductive: Uterus has been removed. Bones/joints: Mild degenerative spondylolisthesis L4-L5 contributing to some degree of spinal stenosis. Soft tissues: Unremarkable. IMPRESSION: 1. Mild diffuse bladder wall thickening not evident previously. Please correlate for possible cystitis. 2. Multiple chronic findings as above.
--- NOTE | 2022-07-26 12:16 | HMH.EDGENADL ---
Discharge Plan Disposition Patient Disposition: Home, Self-Care Condition: Good Prescriptions Prescriptions: New cephalexin 500 mg capsule 500 mg PO Q6 3 Days Qty: 12 0RF No Action loratadine 10 MG tablet 20 mg PO ONCE buspirone 10 MG tablet 10 mg PO BID methocarbamol 500 MG tablet 500 mg PO Q8 PRN (Reason: Muscle Spasm) 4 Days Qty: 12 0RF pregabalin 150 MG capsule 1 tab PO TID Label Comments: L.acidoph, paracasei,B. lactis 1 EACH capsule 1 each PO DAILY pantoprazole 40 MG tablet,delayed release (DR/EC) 40 mg PO DAILY ondansetron 4 mg tablet,disintegrating 4 mg PO Q6HP PRN (Reason: nausea and vomiting) Qty: 12 0RF Referrals Follow up/Referrals: Naya Goodwin [Primary Care Provider] - See instructions Activity Restrictions/Add. 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 For the next 5 to 7 days increase your pantoprazole to twice daily. Clinical Impressions Clinical Impression: Gastritis, UTI (urinary tract infection) Instructions Patient Instructions: DI for Acute Abdominal Pain Discharge ED Provider: Kalyan Tong General Adult HPI General Chief complaint: Abdominal Pain Stated complaint: abd pain, diarrhea, nausea Time Seen by Provider: 07/26/22 12:08 Mode of Arrival: Ambulatory Limitations: No Limitations Description of Symptoms (Recalled from ER Triage Doc. by RN): PT WITH C/O GENERALIZED ABDOMINAL PAIN SINCE TUESDAY. PT C/O VOMITING THAT STARTED ON TUESDAY. History of Present Illness HPI narrative: Patient presents with 4 days of nausea vomiting diarrhea and abdominal discomfort. He had similar symptoms since having had her gallbladder removed few years ago but not of the severity. She denies fever today she presently describes the pain is in the upper abdomen and severe. Related Data Home Medications Medication Instructions Recorded Confirmed pregabalin 150 mg capsule 1 tab PO TID NEUROPATHIC PAIN 04/26/17 12/01/21 loratadine 10 mg tablet 20 mg PO ONCE allergies 08/23/17 12/01/21 L.acidoph, paracasei,B. lactis 10 1 each PO DAILY bowel health 12/08/18 12/01/21 billion cell capsule pantoprazole 40 mg tablet,delayed 40 mg PO DAILY stomach 07/03/19 12/01/21 release buspirone 10 mg tablet 10 mg PO BID stomach 09/28/19 12/01/21 Previous Rx's Medication Instructions Recorded methocarbamol 500 mg tablet 500 mg PO Q8 PRN Muscle Spasm 4 07/15/20 days #12 tabs ondansetron 4 mg disintegrating 4 mg PO Q6HP PRN nausea and 11/14/21 tablet vomiting #12 tabs cephalexin 500 mg capsule 500 mg PO Q6 3 days #12 caps 07/26/22 Allergies Allergy/AdvReac Type Severity Reaction Status Date / Time Penicillins [PENICILLINS] Allergy Unknown Verified 01/30/21 12:42 sulfamethoxazole AdvReac Verified 01/30/21 12:42 [From Bactrim] trimethoprim [From Bactrim] AdvReac Verified 01/30/21 12:42 PFSH PFS Disclaimer: The information contained in this section may have been updated after the patient was seen, as this information can be updated by other users. Social History Smoking Status: Former smoker second hand exposure: Yes alcohol intake: never substance use type: denies use current occupational status: other Travel in the last 8 weeks: None household members: none housing: house current occupational exposures/hazards: No caffeine: Yes ROS Obtained: Yes All systems reviewed & no additional complaints except as documented Physical Exam General General appearance: alert and in no apparent distress Head Head exam: atraumatic, normocephalic and normal inspection Eye Eye exam: Present normal appearance, PERRL and EOMI ENT ENT exam: Present normal exam, normal oropharynx, mucous membranes moist, TM's normal bilaterally and normal external ear exam Ne
[2022-07-26 12:18] LABS: Microscopic, Urine URINE MICROSCOPIC (MICROSCOPIC)
[2022-07-26 12:20] LABS: Appearance,Urine CLEAR (Clear); Blood, Urine TRACE-I (Negative); Color,Urine YELLOW (Yellow); Glucose,Urine (UA) Negative (Negative); Ketones,Urine Negative (Negative); Leukocyte Esterase,Urine Negative (Negative); Nitrate,Urine Negative (Negative); Protein,Urine Negative (Negative); Specific Gravity, Urine 1.025 (1.005-1.030); Urobilinogen,Urine 0.2 EU/dl (0.2)
[2022-07-26 12:24] LABS: Bilirubin,Urine 1+ (Negative)
[2022-07-26 12:37] LABS: Bacteria,Urine Trace /lpf; RBC,Urine Occasional #/hpf (0-3); Squamous Epithelial Cell,Urine Occasional #/hpf (0-5)
[2022-07-26 12:39] LABS: Basophils # 0.1 K/mm3 (0-0.2); Basophils % 1.2 % (0.1-2.0); Eosinophils # 0.1 K/mm3 (0.0-0.4); Hematocrit 43.9 % (37.0-47.0); Hemoglobin 14.2 g/dL (12.2-16.2); Lymphocytes # 1.7 K/mm3 (0.7-4.5); Mean Corpuscular HGB Conc 32.3 g/dL (31.8-35.4); Mean Corpuscular Hemoglobin 31.7 pg (27.0-31.2); Mean Corpuscular Volume 98.1 fl (81-99); Mean Platelet Volume 8.8 fl (7.4-10.4); Monocytes # 0.3 K/mm3 (0.1-1.0); Monocytes % 5.1 % (1.7-9.3); Neutrophils # 4.1 K/mm3 (1.8-7.8); Neutrophils % 65.6 % (37.0-80.0); Platelet Count 229 K/mm3 (142-424); Red Blood Count 4.48 M/mm3 (4.20-5.40); White Blood Count 6.2 K/mm3 (4.8-10.8)
[2022-07-26 12:44] LABS: Chloride 105 mmol/L (98-107)
[2022-07-26 12:45] LABS: Potassium 3.2 mmoL/L (3.5-5.1); Sodium 144 mmol/L (136-145)
--- NOTE | 2022-07-26 12:45 | PC.NURSE ---
PT REQUESTING PAIN MEDICATION, ED MD AT BEDSIDE
[2022-07-26 12:47] LABS: Alanine Aminotransferase 23 U/L (12-78); Alkaline Phosphatase 94 U/L (38-126); Anion Gap 9.2 mEq/L (5-15); Aspartate Amino Transferase 26 U/L (14-36); Bilirubin,Total 0.3 mg/dl (0.2-1.3); Blood Urea Nitrogen 7 mg/dl (7-17); Carbon Dioxide 33 mmol/L (22.0-30.0); Creatinine Clearance Estimated 79 mL/min (50-200); Estimated Glomerular Filt Rate 86 ml/min (>60); GFR (African American) 104 ML/MIN (>60); Lipase 66 U/L (23-300)
[2022-07-26 12:48] LABS: Albumin Level 3.8 g/dl (3.5-5.0); Albumin/Globulin Ratio 1.4 (1.1-1.8); Calcium 8.8 mg/dl (8.4-10.2); Globulin 2.7 g/dL (1.3-3.2); Glucose 91 mg/dl (74-100); Total Protein,Serum 6.5 g/dl (6.3-8.2)
--- NOTE | 2022-07-26 13:05 | PC.NURSE ---
pt to CT via wheelchair
--- NOTE | 2022-07-26 13:06 | PC.NURSE ---
PT TO CT
--- NOTE | 2022-07-26 14:40 | PC.NURSE ---
dr goldstein at bedside to update pt and family
--- NOTE | 2022-07-26 14:44 | PC.NURSE ---
rounded on room. Pt ahd no needs at this time
== END 2022-07-26 15:12 | disposition home or self-care (01) ==
PROVIDERS: Emergency Provider Emergency Medicine; PCP Nurse Practitioner Family
DX: K29.70 Gastritis, unspecified, without bleeding (principal); N39.0 Urinary tract infection, site not specified; Z87.891 Personal history of nicotine dependence
CPT/HCPCS: 74177; 80053; 81001; 83690; 85025; 96361; 96374; 96375; 99285; J2405; Q9967

== ENCOUNTER 2022-09-16 11:57 | Emergency (ER) | payer MEDICARE, MEDICAID, SELFPAY ==
[2022-09-16] VITALS (8 sets, daily range): BP systolic 84–125; BP diastolic 31–85; PULSE 76–110; RESP 18–19; TEMP 36.6–36.7; O2SAT 95–96; BMI 23.3
--- NOTE | 2022-09-16 12:06 | HMH.EDGENADL ---
Discharge Plan Disposition Patient Disposition: Home, Self-Care Condition: Good Prescriptions Prescriptions: New naproxen 500 mg tablet 500 mg PO BID 5 Days Qty: 10 0RF oxycodone 5 mg tablet 5 mg PO Q8H PRN (Reason: pain) Qty: 12 0RF ondansetron 4 mg tablet,disintegrating 4 mg PO Q8H PRN (Reason: nausea and vomiting) 4 Days Qty: 12 0RF No Action loratadine 10 MG tablet 20 mg PO ONCE buspirone 10 MG tablet 10 mg PO BID methocarbamol 500 MG tablet 500 mg PO Q8 PRN (Reason: Muscle Spasm) 4 Days Qty: 12 0RF cephalexin 500 mg capsule 500 mg PO Q6 3 Days Qty: 12 0RF pregabalin 150 MG capsule 1 tab PO TID Patient Comments: L.acidoph, paracaseiB. lactis 1 EACH capsule 1 each PO DAILY pantoprazole 40 MG tablet,delayed release (DR/EC) 40 mg PO DAILY ondansetron 4 mg tablet,disintegrating 4 mg PO Q6HP PRN (Reason: nausea and vomiting) Qty: 12 0RF Referrals Follow up/Referrals: Naya Goodwin [Primary Care Provider] - See instructions Activity Restrictions/Add. Instructions Additional Instructions/Restrictions: You were evaluated in the emergency department today. Please shrimp picker your prescriptions to the pharmacy. Take them as prescribed. Follow-up with your primary care provider over the next 48 hours for reassessment. Return to the emergency department for any new or worsening symptoms. Encourage liquid diet and bowel rest is much as possible until your symptoms have resolved. Clinical Impressions Clinical Impression: Colitis, Acute epigastric pain Instructions Patient Instructions: Acute Abdominal Pain, DI for Colitis Discharge ED Provider: Ilana Oglesby General Adult HPI <Justus Martin MD - Last Filed: 09/16/22 15:06> General Chief complaint: Abdominal Pain Stated complaint: Nausea, vomiting, poss dehydration, upper abd pain Time Seen by Provider: 09/16/22 12:00 History of Present Illness HPI narrative: Patient is a 61-year-old female with past medical history of previous diverticulitis, previous cholecystectomy, previous appendectomy who presents emergency department for evaluation of epigastric pain. History is obtained by patient at bedside. Over the last few days patient has been tearing out a house where she presented to PCP with increased stuffiness and was diagnosed with sinusitis and discharged with a course of azithromycin for which she has taken 2 doses. 40 this morning patient had epigastric pain that is moderate to severe in intensity, associated nausea, no vomiting. Due to persistent symptoms she presents here for continued evaluation. Patient denies significant cough, dysuria. No other acute complaints at this time. Related Data Home Medications Medication Instructions Recorded Confirmed pregabalin 150 mg capsule 1 tab PO TID NEUROPATHIC PAIN 04/26/17 12/01/21 loratadine 10 mg tablet 20 mg PO ONCE allergies 08/23/17 12/01/21 L.acidoph, paracasei,B. lactis 10 1 each PO DAILY bowel health 12/08/18 12/01/21 billion cell capsule pantoprazole 40 mg tablet,delayed 40 mg PO DAILY stomach 07/03/19 12/01/21 release buspirone 10 mg tablet 10 mg PO BID stomach 09/28/19 12/01/21 Previous Rx's Medication Instructions Recorded methocarbamol 500 mg tablet 500 mg PO Q8 PRN Muscle Spasm 4 07/15/20 days #12 tabs ondansetron 4 mg disintegrating 4 mg PO Q6HP PRN nausea and 11/14/21 tablet vomiting #12 tabs cephalexin 500 mg capsule 500 mg PO Q6 3 days #12 caps 07/26/22 naproxen 500 mg tablet 500 mg PO BID 5 days #10 tabs 09/16/22 ondansetron 4 mg disintegrating 4 mg PO Q8H PRN nausea and 09/16/22 tablet vomiting 4 days #12 tabs oxycodone 5 mg tablet 5 mg PO Q8H PRN pain #12 tabs 09/16/22 Allergies Allergy/AdvReac Type Severity Reaction Status Date / Time Penicillins [PENICILLINS] Allergy Unknown Verified 01/30/21 12:42 sulfamethoxazole AdvReac Verified 01/30/21 12:42 [From Bactrim] trimethoprim [From Ba
--- NOTE | 2022-09-16 12:07 | CT_ITS ---
FINAL REPORT TECHNIQUE: Thin section axial images are obtained through the abdomen and pelvis after intravenous contrast. Reconstruction images were obtained from the axial data. Exam was performed using dose reduction techniques. CLINICAL HISTORY: LUQ epigastric pain COMPARISON: 07/26/2022 FINDINGS: LUNG BASES: Lung bases are clear. Heart size is normal. LIVER: Homogeneous. No focal lesion. GALLBLADDER/BILIARY SYSTEM: The gallbladder is surgically absent. No biliary dilatation. SPLEEN: Unremarkable. PANCREAS: Unremarkable. ADRENALS: Unremarkable. SYSTEM: No hydronephrosis, renal mass, or renal stone. Unremarkable urinary bladder. Pelvic organs are unremarkable for age. GI TRACT: There is a large duodenal diverticula once again seen and unchanged in appearance since the prior exam. The appendix is not well visualized. There are no secondary signs of appendicitis. There is a long segment of distal colonic wall thickening with mild pericolonic inflammatory change consistent with colitis. There is diverticulosis of the sigmoid colon without evidence of diverticulitis. LYMPH NODES/RETROPERITONEUM/MESENTERY: No lymphadenopathy. No abdominal aortic aneurysm. OTHER: No ascites. Remaining soft tissues without acute abnormality. The uterus has been surgically removed. BONES: No acute osseous abnormality. IMPRESSION: Long segment distal colonic wall thickening with mild pericolic inflammatory change consistent with colitis. Sigmoid diverticulosis without diverticulitis. Large duodenal diverticulum unchanged since prior exam. Reviewed, Interpreted and Dictated by Dena Morocho MD Transcribed by Elida Dallas Authenticated and . [facility]
--- NOTE | 2022-09-16 12:24 | ECG_ITS ---
APPROVED REPORT Exam: Resting ECG HR:100 bpm ECG Measurements Heart Rate 100 AXES AK 161 P 83 QRSd 82 QRS 71 QT 345 T 70 QTc 402 Conclusion SINUS TACHYCARDIA POSSIBLE RIGHT ATRIAL ENLARGEMENT [0.25mV P-WAVE] ABNORMAL RHYTHM ECG UNCONFIRMED REPORT Electronically signed by : Nixon Avelar MD 09/16/2022 21:23:15
[2022-09-16 12:33] LABS: Alanine Aminotransferase 26 U/L (12-78); Albumin Level 4.5 g/dl (3.5-5.0); Albumin/Globulin Ratio 1.6 (1.1-1.8); Alkaline Phosphatase 127 U/L (38-126); Aspartate Amino Transferase 29 U/L (14-36); Bilirubin,Total 0.6 mg/dl (0.2-1.3); Blood Urea Nitrogen 12 mg/dl (7-17); Calcium 9.4 mg/dl (8.4-10.2); Carbon Dioxide 29 mmol/L (22.0-30.0); Chloride 105 mmol/L (98-107); Creatinine Clearance Estimated 62 mL/min (50-200); Estimated Glomerular Filt Rate 64 ml/min (>60); GFR (African American) 78 ML/MIN (>60); Globulin 2.9 g/dL (1.3-3.2); Glucose 109 mg/dl (74-100); Lipase 78 U/L (23-300); Sodium 142 mmol/L (136-145); Total Protein,Serum 7.4 g/dl (6.3-8.2)
--- NOTE | 2022-09-16 12:41 | PC.NURSE ---
PT TO CT
--- NOTE | 2022-09-16 12:46 | PC.NURSE ---
PT RETURNED FROM CT
[2022-09-16 12:47] LABS: Troponin I < 0.01 ng/ml (0.00-0.034)
--- NOTE | 2022-09-16 12:58 | PC.NURSE ---
rounded on patient, no needs at this time
--- NOTE | 2022-09-16 13:21 | PC.NURSE ---
Pt requesting PO fluids. Okay by . Ice water provided.
--- NOTE | 2022-09-16 13:42 | ECG_ITS ---
APPROVED REPORT Exam: Resting ECG HR:65 bpm ECG Measurements Heart Rate 65 AXES MA 167 P 83 QRSd 85 QRS 74 QT 402 T 72 QTc 413 Conclusion SINUS RHYTHM NORMAL ECG UNCONFIRMED REPORT Electronically signed by : Nixon Avelar MD 09/16/2022 21:23:08
--- NOTE | 2022-09-16 13:49 | PC.NURSE ---
DR STRINGER AT BEDSIDE, PT C/O INCREASED CHEST PAIN
[2022-09-16 14:59] LABS: White Blood Count 7.3 K/mm3 (4.8-10.8)
[2022-09-16 15:00] LABS: Hematocrit 42.6 % (37.0-47.0); Hemoglobin 14.3 g/dL (12.2-16.2); Mean Corpuscular HGB Conc 33.6 g/dL (31.8-35.4); Mean Corpuscular Hemoglobin 32.2 pg (27.0-31.2); Mean Corpuscular Volume 95.9 fl (81-99); Mean Platelet Volume 11.9 fl (7.4-10.4); Platelet Count 226 K/mm3 (142-424); Red Blood Count 4.44 M/mm3 (4.20-5.40); Red Cell Distribution Width 12.5 % (11.5-17.5)
[2022-09-16 15:01] LABS: Basophils % 0.5 % (0.1-2.0); Eosinophils % 0.3 % (0.1-12.0); Lymphocytes # 1.7 K/mm3 (0.7-4.5); Lymphocytes % 23.4 % (10-50); Monocytes # 0.2 K/mm3 (0.1-1.0); Neutrophils # 5.3 K/mm3 (1.8-7.8); Neutrophils % 72.8 % (37.0-80.0)
== END 2022-09-16 17:04 | disposition home or self-care (01) ==
PROVIDERS: Emergency Medicine; Emergency Provider Emergency Medicine; PCP Nurse Practitioner Family
DX: R10.13 Epigastric pain (principal); Z87.891 Personal history of nicotine dependence
CPT/HCPCS: 74177; 80053; 83690; 84484; 85025; 93005; 96361; 96374; 96375; 99285; J2405; Q9967

== ENCOUNTER 2022-11-07 09:23 | Emergency (ER) | payer MEDICARE, MEDICAID, SELFPAY ==
[2022-11-07 09:45] VITALS: BP 132/72; PULSE 79; RESP 18; TEMP 36.7; O2SAT 95; BMI 23.3
[2022-11-07 09:50] LABS: Microscopic, Urine URINE MICROSCOPIC (MICROSCOPIC)
[2022-11-07 09:53] LABS: Appearance,Urine SL CLOUDY (Clear); Blood, Urine TRACE-I (Negative); Color,Urine ORANGE (Yellow); Glucose,Urine (UA) 1+ (Negative); Ketones,Urine TRACE (Negative); Leukocyte Esterase,Urine 3+ (Negative); Nitrate,Urine POSITIVE (Negative); PH,Urine 6.5 (5.0-8.5); Protein,Urine 2+ (Negative); Specific Gravity, Urine 1.015 (1.005-1.030); Urobilinogen,Urine >=8.0 EU/dl (0.2)
[2022-11-07 09:55] LABS: Bilirubin,Urine 2+ (Negative)
--- NOTE | 2022-11-07 10:01 | EXP.UTC ---
Discharge Plan Disposition Patient Disposition: Home, Self-Care Condition: Good Prescriptions Prescriptions: New phenazopyridine [Pyridium] 200 mg tablet 200 mg PO Q8H 2 Days Qty: 6 0RF ciprofloxacin HCl [Cipro] 500 mg tablet 500 mg PO BID 7 Days Qty: 14 0RF ondansetron 4 mg Tablet,Disintegrating 4 mg PO Q8H PRN (Reason: Nausea) Qty: 12 0RF No Action loratadine 10 MG tablet 20 mg PO ONCE buspirone 10 MG tablet 10 mg PO BID methocarbamol 500 MG tablet 500 mg PO Q8 PRN (Reason: Muscle Spasm) 4 Days Qty: 12 0RF pregabalin 150 MG capsule 1 tab PO TID Patient Comments: L.acidoph, paracasei,B. lactis 1 EACH capsule 1 each PO DAILY pantoprazole 40 MG tablet,delayed release (DR/EC) 40 mg PO DAILY naproxen 500 mg tablet 500 mg PO BID 5 Days Qty: 10 0RF oxycodone 5 mg tablet 5 mg PO Q8H PRN (Reason: pain) Qty: 12 0RF Referrals Follow up/Referrals: Naya Goodwin [Primary Care Provider] - See instructions Activity Restrictions/Add. Instructions Additional Instructions/Restrictions: Drink plenty of fluids. Take tylenol or ibuprofen for pain or fever. Take the medications as directed. Follow up with your regular doctor. GO TO THE ER FOR ANY WORSENING SYMPTOMS The pyridium will make your urine turn orange, this is an expected side effect. It will stain your clothes if it comes into contact with them. We will culture the urine. That will tell what bacteria is causing your infection and which antibiotics will treat it best. Sometimes the first antibiotic we prescribe turns out to not work against different bacteria. So, make sure you follow up within 3 days if you are not getting better. Clinical Impressions Clinical Impression: UTI (urinary tract infection) Instructions Patient Instructions: Urinary Tract Infection, Urine Culture, DI for Urinary Tract Infection (UTI), Phenazopyridine Discharge ED Provider: Avni José [facility] General Stated complaint: jiang when urinates Mode of Arrival: Ambulatory Source of Information: Patient Limitations: No Limitations Time Seen by Provider: 11/07/22 10:01 Description of Symptoms (Recalled from Triage Doc. by RN): Pt states that 11/06/2022 started with burning when she urinates, and feels pressure. HEENT Symptoms (Recalled from RN notes): No Resp Symptoms (Recalled from RN notes): No Skin Symptoms (Recalled from RN notes): No MS Symptoms (Recalled from RN notes): No Functional Status (Recalled from RN notes): n/a History of Present Illness Provider Complaint: She states that for the past 2 days she has had low back pain and dysuria. Related Data Home Medications Medication Instructions Recorded Confirmed pregabalin 150 mg capsule 1 tab PO TID NEUROPATHIC PAIN 04/26/17 11/07/22 loratadine 10 mg tablet 20 mg PO ONCE allergies 08/23/17 12/01/21 L.acidoph, paracasei,B. lactis 10 1 each PO DAILY bowel health 12/08/18 12/01/21 billion cell capsule pantoprazole 40 mg tablet,delayed 40 mg PO DAILY stomach 07/03/19 11/07/22 release buspirone 10 mg tablet 10 mg PO BID stomach 09/28/19 12/01/21 Previous Rx's Medication Instructions Recorded methocarbamol 500 mg tablet 500 mg PO Q8 PRN Muscle Spasm 4 07/15/20 days #12 tabs naproxen 500 mg tablet 500 mg PO BID 5 days #10 tabs 09/16/22 oxycodone 5 mg tablet 5 mg PO Q8H PRN pain #12 tabs 09/16/22 ciprofloxacin HCl 500 mg tablet 500 mg PO BID 7 days #14 tabs 11/07/22 (Cipro) ondansetron 4 mg disintegrating 4 mg PO Q8H PRN Nausea #12 tabs 11/07/22 tablet phenazopyridine 200 mg tablet 200 mg PO Q8H 2 days #6 tabs 11/07/22 (Pyridium) Allergies Allergy/AdvReac Type Severity Reaction Status Date / Time Penicillins [PENICILLINS] Allergy Unknown Verified 11/07/22 10:01 Sulfa (Sulfonamide AdvReac Verified 11/07/22 10:04 Antibiotics) sulfamethoxazole AdvReac Verified 11/07/22 10:01 [From Bactrim] trimethoprim [Fro
[2022-11-07 10:06] LABS: WBC,Urine 50-100 #/hpf (0-3)
[2022-11-07 10:07] LABS: Bacteria,Urine 2+ /lpf
[2022-11-07 10:44] VITALS: BP 132/72; PULSE 79; RESP 18; TEMP 36.7; O2SAT 95
== END 2022-11-07 10:44 | disposition home or self-care (01) ==
PROVIDERS: Emergency Provider Nurse Practitioner Family; PCP Nurse Practitioner Family
DX: N39.0 Urinary tract infection, site not specified (principal); B96.89 Other specified bacterial agents as the cause of diseases classified elsewhere; M54.59 Other low back pain; Z87.891 Personal history of nicotine dependence
CPT/HCPCS: 81001; 87086; 87088; 87186; 99204; 99212; G0463

== ENCOUNTER → 2022-12-31 14:27 | Outpatient (CLI) | payer MEDICARE, MEDICAID, SELFPAY ==
--- NOTE | 2022-12-31 14:32 | XR_ITS ---
FINAL REPORT TECHNIQUE: Right hip 2 views CLINICAL HISTORY: INFLAMMATION OF SI JOINTS COMPARISON: None FINDINGS: RIGHT HIP: No evidence of fracture or dislocation is identified. There is mild degenerative change identified in both hips as well as the sacroiliac joints. No acute bony abnormality is present. IMPRESSION: Mild degenerative change in both hips as well as the sacroiliac joints. Reviewed, Interpreted and Dictated by Marc Shin III, MD Transcribed by Elida Dallas Authenticated and [facility]
--- NOTE | 2022-12-31 14:32 | XR_ITS ---
FINAL REPORT TECHNIQUE: Left hip 2 views CLINICAL HISTORY: INFLAMMATION OF SI JOINTS COMPARISON: None FINDINGS: LEFT HIP: 2 views of the left hip failed to reveal any evidence of fracture or dislocation. There is mild degenerative change of both hips noted on the pelvic film, as well as the sacroiliac joints. No acute bony abnormality is identified. IMPRESSION: Mild degenerative change bilateral hips and sacroiliac joints. Reviewed, Interpreted and Dictated by Lolly Navarrete MD Transcribed by Elida Dallas Authenticated and [facility]
== END ==
PROVIDERS: PCP Nurse Practitioner Family; Visit Provider Anesthesiology
DX: M46.1 Sacroiliitis, not elsewhere classified (principal)
CPT/HCPCS: 73502

== ENCOUNTER 2023-03-06 11:16 | Emergency (ER) | payer MEDICARE, MEDICAID, SELFPAY ==
[2023-03-06 12:35] VITALS: BP 121/86; PULSE 90; RESP 19; TEMP 37; O2SAT 100; BMI 20.6
--- NOTE | 2023-03-06 12:59 | ED_ITS ---
Discharge Plan Disposition Patient Disposition: Home, Self-Care Condition: Good Prescriptions Prescriptions: New doxycycline hyclate 100 mg capsule 100 mg PO BID 7 Days Qty: 14 0RF prednisone [prednisone] 20 mg tablet 20 mg PO BID 5 Days Qty: 10 0RF No Action famotidine 40 mg tablet 40 mg PO DAILY Patient Comments: Take 1 tablet every day by oral route. hydrocodone-acetaminophen 7.5-325 mg tablet 1 tab PO DAILY buspirone 10 mg tablet 10 mg PO DAILY lorazepam 1 mg tablet 1 mg PO DAILY fluticasone propionate 50 mcg/actuation spray,suspension 2 spray INTRANASAL DAILY Patient Comments: inhale 1 spray (50 mcg) in each nostril by intranasal route 2 times per day Referrals Follow up/Referrals: Naya Goodwin [Primary Care Provider] - See instructions Activity Restrictions/Add. Instructions Additional Instructions/Restrictions: Take medication as prescribed Follow up with your Family Doctor if no improvement or any worsening of symptoms Taking a probiotic may help to keep the medication from upsetting your stomach Straight to ER if any life threatening sympotms Clinical Impressions Clinical Impression: Sinusitis Qualifiers: Sinusitis location: unspecified location Chronicity: unspecified Qualified Code(s): J32.9 - Chronic sinusitis, unspecified Instructions Patient Instructions: DI for Sinusitis, Sinusitis, DI for Ear Pain-Adult Discharge ED Provider: Gwendolyn Noe [facility] General Stated complaint: right ear ache and body aches Mode of Arrival: Ambulatory Source of Information: Patient Limitations: No Limitations Time Seen by Provider: 03/06/23 12:59 Description of Symptoms (Recalled from Triage Doc. by RN): PATIENT C/O RIGHT EAR PAIN AND BODY ACHES X 1 WEEK HEENT Symptoms (Recalled from RN notes): Yes Resp Symptoms (Recalled from RN notes): No Skin Symptoms (Recalled from RN notes): No MS Symptoms (Recalled from RN notes): No Functional Status (Recalled from RN notes): WNL History of Present Illness Provider Complaint: Patient states that for the last week she has been having sinus congestion and pressure and pain in her right ear for well over a week States that she has tried OTC medication but nothing has helped States that she has to be careful of what she takes because she has a bad stomach so she came in to get checked Related Data Home Medications Medication Instructions Recorded Confirmed buspirone 10 mg tablet 10 mg PO DAILY 03/06/23 03/06/23 famotidine 40 mg tablet 40 mg PO DAILY 03/06/23 03/06/23 fluticasone propionate 50 2 spray intranasal DAILY 03/06/23 03/06/23 mcg/actuation nasal spray,suspension hydrocodone 7.5 mg-acetaminophen 1 tab PO DAILY 03/06/23 03/06/23 325 mg tablet lorazepam 1 mg tablet 1 mg PO DAILY 03/06/23 03/06/23 Previous Rx's Medication Instructions Recorded doxycycline hyclate 100 mg capsule 100 mg PO BID 7 days #14 caps 03/06/23 prednisone 20 mg tablet 20 mg PO BID 5 days #10 tabs 03/06/23 Allergies Allergy/AdvReac Type Severity Reaction Status Date / Time Penicillins [PENICILLINS] Allergy Unknown Verified 11/07/22 10:01 Sulfa (Sulfonamide AdvReac Verified 11/07/22 10:04 Antibiotics) sulfamethoxazole AdvReac Verified 11/07/22 10:01 [From Bactrim] trimethoprim [From Bactrim] AdvReac Verified 11/07/22 10:01 Worker's Comp Is this a Worker's Comp case?: No [facility] Disclaimer: The information contained in this section may have been updated after the patient was seen, as this information can be updated by other users. Social History Smoking Status: Former smoker tobacco type: cigarettes packs per day: 1 second hand exposure: Yes alcohol intake: never substance use type: denies use current occupational status: other Travel in the last 8 weeks: None household members: none housing: house current occupational exposures/hazards: No caffeine: Yes ROS Obtained: Yes All systems reviewed & no additional complaints except as documented and Yes Systems reviewed as appropriate & no additional complaints except as documented Constitutional Constitutional: Reports system reviewed and no additional complaints, except as documented, Reports as per HPI and Reports headache(s) ENT Ears, Nose, Mouth, and Throat: Reports system reviewed and no additional complaints, except as documented, Reports as per HPI, Reports otalgia, Reports headache(s), Reports sinus pain and Reports sinus pressure Cardiovascular Cardiovascular: Reports system reviewed and no additional complaints, except as documented and Reports as per HPI Respiratory Respiratory: Reports system reviewed and no additional complaints, except as documented and Reports as per HPI Gastrointestinal Gastrointestingal: Reports system reviewed and no additional complaints, except as documented and as per HPI Neurologic Neurologic: Reports headache(s) Physical Exam General General appearance: alert and in no apparent distress ENT ENT exam: Present mucous membranes moist Expanded ENT Exam TM/Canal exam: Bilateral TM: bulging (mild redness noted) Nose exam: Present sinus tenderness Respiratory Respiratory exam: Present normal lung sounds bilaterally; Absent respiratory distress or wheezes Cardiovascular Cardiovascular exam: Present regular rate, normal rhythm and normal heart sounds Neurological Exam Neurological exam: Present alert, oriented X3 and normal gait Medical Decision Making Zion Inquiry Pt receiving controlled substance: No Zion was queried for this patient: No Vital Signs: 03/06/23 12:35 Temperature 98.6 F Temperature Source Oral Pulse Rate [Left Brachial] 90 Respiratory Rate 19 Blood Pressure [Left Arm] 121/86 Blood Pressure Mean [Left Arm] 97 Blood Pressure Source [Left Arm] Automatic Cuff Blood Pressure Position [Left Arm] Sitting 02 Sat by Pulse Oximetry 100 Oxygen Delivery Method Room Air Medical Decision Narrative: Medication discussed with pharmacy
[2023-03-06 13:13] VITALS: BP 121/86; PULSE 90; RESP 19; TEMP 37; O2SAT 100
== END 2023-03-06 13:16 | disposition home or self-care (01) ==
PROVIDERS: Emergency Provider Nurse Practitioner; PCP Nurse Practitioner Family
DX: J01.90 Acute sinusitis, unspecified (principal); R51.9 Headache, unspecified; H92.01 Otalgia, right ear; R09.81 Nasal congestion; M79.18 Myalgia, other site
CPT/HCPCS: 99212; 99214; G0463

== ENCOUNTER 2023-04-02 16:39 | Emergency (ER) | payer MEDICARE, MEDICAID, SELFPAY ==
[2023-04-02 16:41] VITALS: BP 108/55; PULSE 94; RESP 15; TEMP 36.7; O2SAT 98; BMI 21.9
[2023-04-02 17:33] LABS: Microscopic, Urine URINE MICROSCOPIC (MICROSCOPIC)
--- NOTE | 2023-04-02 17:38 | HMH.EDGENADL ---
Discharge Plan Disposition Patient Disposition: Home, Self-Care Prescriptions Prescriptions: New cefdinir 300 mg capsule 300 mg PO BID 7 Days Qty: 14 0RF fluconazole 150 mg tablet 150 mg PO Q3D Qty: 2 0RF estradiol 10 mcg tablet 10 mcg vaginal DAILY 14 Days Qty: 14 0RF No Action famotidine 40 mg tablet 40 mg PO DAILY Patient Comments: Take 1 tablet every day by oral route. hydrocodone-acetaminophen 7.5-325 mg tablet 1 tab PO DAILY buspirone 10 mg tablet 10 mg PO DAILY lorazepam 1 mg tablet 1 mg PO DAILY fluticasone propionate 50 mcg/actuation spray,suspension 2 spray INTRANASAL DAILY Patient Comments: inhale 1 spray (50 mcg) in each nostril by intranasal route 2 times per day doxycycline hyclate 100 mg capsule 100 mg PO BID 7 Days Qty: 14 0RF prednisone [prednisone] 20 mg tablet 20 mg PO BID 5 Days Qty: 10 0RF Referrals Follow up/Referrals: Naya Goodwin [Primary Care Provider] - See instructions Activity Restrictions/Add. Instructions Additional Instructions/Restrictions: Call your family doctor to establish care for this visit to the emergency department and schedule follow-up within 48 hours to ensure improvement. If you have any worsening of your condition or any other concerning signs or symptoms, return to the emergency department or your primary care doctor for further evaluation. Antibiotic twice daily for 7 days. Vaginal estrogen tablet every night just before bed for 2 weeks. Diflucan has been sent to the pharmacy in case you develop yeast infection. Clinical Impressions Clinical Impression: UTI (urinary tract infection), Vaginal burning, Vaginal candidiasis Instructions Patient Instructions: DI for Urinary Tract Infection (UTI), DI for Urinary Tract Infection in Children Discharge ED Provider: Kalyan Nance General Adult HPI General Chief complaint: Urogenital-Female Stated complaint: vaginal burning Time Seen by Provider: 04/02/23 16:45 Mode of Arrival: Ambulatory Source of Information: Patient Limitations: No Limitations Description of Symptoms (Recalled from ER Triage Doc. by RN): pt presents to ED with c/o dsyuria. symptoms began . History of Present Illness HPI narrative: 62-year-old female history of chronic UTIs, antibiotic induced vaginal candidiasis presenting with lower abdominal pain. Patient states she has been having burning and lower abdominal cramping for the past couple of days, getting worsening to the point where she is constantly in pain, worse when she is urinating. Denies hematuria, diarrhea or constipation, but patient is having whitish/yellow thick vaginal discharge. She has recently been on antibiotic for UTI, developed the symptoms since that point. Has not been on Diflucan since. Related Data Home Medications Medication Instructions Recorded Confirmed buspirone 10 mg tablet 10 mg PO DAILY 03/06/23 03/06/23 famotidine 40 mg tablet 40 mg PO DAILY 03/06/23 03/06/23 fluticasone propionate 50 2 spray intranasal DAILY 03/06/23 03/06/23 mcg/actuation nasal spray,suspension hydrocodone 7.5 mg-acetaminophen 1 tab PO DAILY 03/06/23 03/06/23 325 mg tablet lorazepam 1 mg tablet 1 mg PO DAILY 03/06/23 03/06/23 Previous Rx's Medication Instructions Recorded doxycycline hyclate 100 mg capsule 100 mg PO BID 7 days #14 caps 03/06/23 prednisone 20 mg tablet 20 mg PO BID 5 days #10 tabs 03/06/23 cefdinir 300 mg capsule 300 mg PO BID 7 days #14 caps 04/02/23 estradiol 10 mcg vaginal tablet 10 mcg vaginal DAILY 2 weeks #14 04/02/23 tabs fluconazole 150 mg tablet 150 mg PO Q3D 2 doses #2 tabs 04/02/23 Allergies Allergy/AdvReac Type Severity Reaction Status Date / Time Penicillins [PENICILLINS] Allergy Unknown Verified 11/07/22 10:01 Sulfa (Sulfonamide AdvReac Verified 11/07/22 10:04 Antibiotics) sulfamethoxazole AdvReac Verified 11/07/22 10:01 [From Bactrim] trimethoprim [From Bactrim] AdvReac Verified 11/07/22 10:01 [facility] Disclaimer: The information contained in this section may have been updated after the patient was seen, as this information can be updated by other users. Social History Smoking Status: Former smoker tobacco type: cigarettes packs per day: 1 second hand exposure: Yes alcohol intake: never substance use type: denies use current occupational status: other Travel in the last 8 weeks: None household members: none housing: house current occupational exposures/hazards: No caffeine: Yes ROS Obtained: Yes All systems reviewed & no additional complaints except as documented Physical Exam General General appearance: alert and in no apparent distress Head Head exam: atraumatic and normocephalic Eye Eye exam: Present normal appearance, PERRL and EOMI ENT ENT exam: Present mucous membranes moist Neck Neck exam: Present normal inspection, full ROM and trachea midline Respiratory Respiratory exam: Absent respiratory distress, wheezes, stridor, accessory muscle use or prolonged expiratory phase Cardiovascular Cardiovascular exam: Present normal rhythm Abdominal Exam Abdominal exam: Present soft; Absent distention, tenderness, guarding, rebound or rigidity Extremities Exam Extremities exam: Absent edema Neurological Exam Neurological exam: Present alert, oriented X3, CN II-XII intact and normal gait; Absent motor sensory deficit Skin Skin exam: Present warm and dry; Absent diaphoresis or erythema Medical Decision Making Medical Records Medical records reviewed: Yes I reviewed the patient's medical records. Zion Inquiry Pt receiving controlled substance: No Zion was queried for this patient: No Vital Signs: 04/02/23 16:41 04/02/23 18:22 Temperature 98.0 F Temperature Source Oral Pulse Rate 85 Pulse Rate [Left Radial] 94 H Respiratory Rate 15 Blood Pressure 99/47 L Blood Pressure [Right Arm] 108/55 L Blood Pressure Mean [Right Arm] 72 02 Sat by Pulse Oximetry 98 95 Oxygen Delivery Method Room Air Room Air Lab Data Lab Results 04/02/23 16:57: Urine Color [place], Urine Appearance Clear, Urine pH 5.5, Ur Specific Delta 1.020, Urine Protein 1+, Urine Glucose (UA) Trace, Urine Ketones Trace, Urine Blood Negative, Urine Nitrate Positive, Urine Bilirubin 2+ A, Urine Urobilinogen 4.0, Ur Leukocyte Esterase Negative, Urine RBC None, Urine WBC None, Ur Squamous Epith Cells Occasional, Urine Bacteria 3+ Orders (Tests/Meds): ED MEDICATIONS Discontinued Medications Generic Name Dose Route Start Last Admin Trade Name Freq PRN Reason Stop Dose Admin Cefdinir 300 mg 04/02/23 18:07 04/02/23 18:17 Cefdinir 300mg Capsule PO 04/02/23 18:08 300 mg ONCE ONE Administration Fluconazole 200 mg 04/02/23 17:33 04/02/23 17:48 Fluconazole 200mg Tablet PO 04/02/23 17:34 200 mg ONCE ONE Administration ORDERS Category Date Time Status UA [Urinalysis and Microscopic] Stat Lab 04/02/23 16:57 Completed Urine Culture Stat Micro 04/02/23 16:57 Received Medical Decision Narrative: 62-year-old female history of chronic UTIs, antibiotic induced vaginal candidiasis presenting with lower abdominal pain. Patient states she has been having burning and lower abdominal cramping for the past couple of days, getting worsening to the point where she is constantly in pain, worse when she is urinating. Denies hematuria, diarrhea or constipation, but patient is having whitish/yellow thick vaginal discharge. She has recently been on antibiotic for UTI, developed the symptoms since that point. Has not been on Diflucan since. History was obtained via conversation with patient. On arrival, patient hemodynamically stable, alert, oriented x4, appropriate, GCS 15, moving all extremities spontaneously, pupils equal and reactive to light. Full physical exam performed and significant for well-appearing woman in no acute distress. Abdominal tenderness not elicited on my exam. No evidence of peritonitis. No flank tenderness. Differential includes vaginal candidiasis, UTI, among others. Patient was given Diflucan p.o. for symptomatic management and correction of underlying abnormalities. Workup independently interpreted and significant for urinary tract infection with bacteria, ketones, protein, nitrates. On reevaluation, patient given cefdinir.Given patient presentation, workup, history, this most likely represents urinary tract infection with concurrent yeast infection. Because patient at baseline without signs or symptoms of clinical decompensation, deemed appropriate for discharge. Results were relayed to patient who voiced understanding and were agreeable to outpatient management and follow up. At the time of discharge the patient was hemodynamically stable, tolerating PO, and mobilizing appropriately. Because patient taking Macrobid, but now has protein in her urine, she was changed from Macrobid to cefdinir. Patient was given 2 doses of Diflucan sent to pharmacy of choice in case she develops yeast infection in the future. She was told to stop taking Macrobid. Also given estrogen cream for intravaginal use for burning. Critical Care Critical Care Time Critical Care Time: No
[2023-04-02 17:46] LABS: Appearance,Urine CLEAR (Clear); Blood, Urine Negative (Negative); Color,Urine ORANGE (Yellow); Glucose,Urine (UA) TRACE (Negative); Ketones,Urine TRACE (Negative); Leukocyte Esterase,Urine Negative (Negative); Nitrate,Urine POSITIVE (Negative); PH,Urine 5.5 (5.0-8.5); Protein,Urine 1+ (Negative)
[2023-04-02] MEDS: FLUCONAZOLE 200MG TABLET 200 MG PO (17:48)
[2023-04-02 17:55] LABS: Bilirubin,Urine 2+ (Negative)
[2023-04-02 18:04] LABS: Bacteria,Urine 3+ /lpf; Squamous Epithelial Cell,Urine Occasional #/hpf (0-5)
[2023-04-02] MEDS: CEFDINIR 300MG CAPSULE 300 MG PO (18:17)
[2023-04-02 18:22] VITALS: BP 99/47; PULSE 85; O2SAT 95
[2023-04-02 18:40] VITALS: BP 120/80; PULSE 72; RESP 16; TEMP 36.7; O2SAT 97
== END 2023-04-02 18:41 | disposition home or self-care (01) ==
PROVIDERS: Emergency Provider Emergency Medicine; PCP Nurse Practitioner Family
DX: B37.31 Acute candidiasis of vulva and vagina (principal); N39.0 Urinary tract infection, site not specified; R10.30 Lower abdominal pain, unspecified; Z87.891 Personal history of nicotine dependence
CPT/HCPCS: 81001; 87086; 99283

== ENCOUNTER 2023-05-10 08:57 | Outpatient (CLI) | payer MEDICARE, MEDICAID, SELFPAY ==
--- NOTE | 2023-05-10 09:00 | XR_ITS ---
FINAL REPORT TECHNIQUE: Bone densitometry calculations of the lumbar spine and left hip were obtained. CLINICAL HISTORY: POST MENOPAUSAL COMPARISON: None FINDINGS: Using L1-4, the bone mineral density of the spine is 1.12 g/cm2, corresponding to T-score of 0.7. However, this may be artificially elevated by the severe facet osteoarthropathy and bony spurs at this level. Using the left hip, the bone mineral density of the femoral neck is 0.495 g/cm2, corresponding to a T-score of -3.2. NOTE: T-score: Standard deviation compared with peak bone mass of young adult mean. *Following the recommendations of the International Society of Bone Densitometry, classification of hip BMD is based on the lower of two T-scores; total hip or femoral neck. IMPRESSION: Osteoporosis: Lowest T-score is at or below -2.5. This patient's T-score meets the World Health Organization criteria for osteoporosis. Reviewed, Interpreted and Dictated by Marc Shin III, MD Transcribed by Elida Dallas Authenticated and [facility]
== END 2023-05-10 23:59 ==
LOC: RAD 08:58
PROVIDERS: PCP Nurse Practitioner Family; Visit Provider Orthopaedic Surgery Orthopaedic Surgery of the Spine
DX: Z78.0 Asymptomatic menopausal state (principal); Z13.820 Encounter for screening for osteoporosis
CPT/HCPCS: 77080

== ENCOUNTER 2023-06-03 10:40 | Outpatient (CLI) | payer MEDICARE, MEDICAID, SELFPAY ==
[2023-06-03 11:21] LABS: Collection Time,Urine 24 hours; Total Volume,Urine 1550 mL (600-1600)
[2023-06-03 11:25] LABS: Creatinine 24 Hour,Urine 930 mg/24hr (630-2500)
[2023-06-03 11:27] LABS: Creatinine,Urine Random 60 mg/dL (Not Estab.)
[2023-06-07 09:20] LABS: Calcium, Urine 5.2 mg/dL (Not Estab.); Calcium, Urine 24hr 78 mg/24 hr (0-320)
== END 2023-06-03 23:59 ==
LOC: LAB.DROPOF 10:41
PROVIDERS: PCP Nurse Practitioner Family; Visit Provider Nurse Practitioner
DX: R79.89 Other specified abnormal findings of blood chemistry (principal)
CPT/HCPCS: 82340; 82570

== ENCOUNTER 2023-06-22 13:36 | Outpatient (CLI) | payer MEDICARE, MEDICAID, SELFPAY ==
--- NOTE | 2023-06-22 13:41 | US_ITS ---
FINAL REPORT CLINICAL HISTORY: RECURRENT UTI COMPARISON: None FINDINGS: RENAL ULTRASOUND Ultrasound images of the kidneys were obtained. The right kidney measures 9.7 cm in length. There is a 1.2 cm hypoechoic focus in the right kidney which may represent a parapelvic cyst. There is no hydronephrosis. The left kidney measures 8.7 cm in length. There is a small echogenic shadowing focus in the collecting system probably due to small stones. There is no hydronephrosis. IMPRESSION: Right parapelvic cyst. Probable small stones on the left. No hydronephrosis. Reviewed, Interpreted and Dictated by Agustin Hood MD Transcribed by Krystyna Mendoza Authenticated and [facility]
== END 2023-06-22 23:59 | disposition home or self-care (01) ==
LOC: RAD 13:37
PROVIDERS: PCP Nurse Practitioner Family; Visit Provider Internal Medicine
DX: N39.0 Urinary tract infection, site not specified (principal); R39.89 Other symptoms and signs involving the genitourinary system
CPT/HCPCS: 76770

== ENCOUNTER 2023-08-29 13:07 | Outpatient (CLI) | payer MEDICARE, MEDICAID, SELFPAY ==
[2023-08-29] MEDS: ROMOSOZUMAB AQQG 210 MG/2.34 ML SQ (13:41)
[2023-08-29 13:57] VITALS: BP 130/67; PULSE 81; RESP 18; TEMP 36.7; O2SAT 97
== END 2023-08-29 13:57 | disposition home or self-care (01) ==
LOC: INF 13:08
PROVIDERS: PCP Nurse Practitioner Family; Visit Provider Internal Medicine
DX: M81.0 Age-related osteoporosis without current pathological fracture (principal); Z79.899 Other long term (current) drug therapy
CPT/HCPCS: 96372; J3111

== ENCOUNTER 2023-11-01 14:42 | Outpatient (CLI) | payer MEDICARE, MEDICAID, SELFPAY ==
--- NOTE | 2023-11-01 14:47 | MM_ITS ---
PROCEDURE INFORMATION: Exam: MG Bilateral Screening 3D Mammography Exam date and time: 11/01/2023 2:49 PM Age: 62 years old Clinical indication: Screening examination TECHNIQUE: Imaging protocol: Bilateral Screening tomosynthesis and 2D mammography including computer-aided detection (CAD) when performed. COMPARISON: 1. MG MM DIG SCREENING MAMM BI W/CAD 10/16/2021 7:53 AM 2. MG MM DIG SCREENING MAMM BI W/CAD 10/08/2020 1:01 PM FINDINGS: MAMMOGRAPHY: Breast composition: There are scattered areas of fibroglandular density. Mass: None. Architectural distortion: None. Calcifications: No suspicious calcifications. Asymmetric density: None. Skin thickening: None. Axillary adenopathy: None. IMPRESSION: No mammographic evidence of malignancy. Annual screening is recommended unless otherwise clinically indicated. ASSESSMENT: BI-RADS Category 1: Negative
== END 2023-11-01 23:59 | disposition home or self-care (01) ==
LOC: RAD 14:43
PROVIDERS: PCP Nurse Practitioner Family; Visit Provider Nurse Practitioner Family
DX: Z12.31 Encounter for screening mammogram for malignant neoplasm of breast (principal)
CPT/HCPCS: 77063; 77067

== ENCOUNTER 2023-11-21 14:02 | Outpatient (CLI) | payer MEDICARE, MEDICAID, SELFPAY ==
[2023-11-21 14:19] VITALS: BP 126/67; PULSE 88; RESP 16; TEMP 36.6; O2SAT 99
[2023-11-21] MEDS: ROMOSOZUMAB AQQG 210 MG/2.34 ML SQ (14:19)
[2023-11-21 14:35] VITALS: BP 122/63; PULSE 85; RESP 16; TEMP 36.6; O2SAT 98
== END 2023-11-21 14:40 | disposition home or self-care (01) ==
LOC: INF 14:03
PROVIDERS: PCP Nurse Practitioner Family; Visit Provider Internal Medicine
DX: M81.0 Age-related osteoporosis without current pathological fracture (principal)
CPT/HCPCS: 96372; J3111

== ENCOUNTER 2023-12-22 13:42 | Outpatient (CLI) | payer MEDICARE, MEDICAID, SELFPAY ==
[2023-12-22 13:56] VITALS: BP 138/75; PULSE 88; RESP 18; O2SAT 97
[2023-12-22] MEDS: ROMOSOZUMAB AQQG 210 MG/2.34 ML SUBCUT (13:56)
== END 2023-12-22 13:58 | disposition home or self-care (01) ==
LOC: INF 13:42
PROVIDERS: PCP Nurse Practitioner Family; Visit Provider Internal Medicine
DX: M81.0 Age-related osteoporosis without current pathological fracture (principal)
CPT/HCPCS: 96372; J3111

== ENCOUNTER 2024-01-19 13:35 | Outpatient (CLI) | payer MEDICARE, MEDICAID, SELFPAY ==
[2024-01-19 13:46] VITALS: BP 122/65; PULSE 70; RESP 18; O2SAT 93
[2024-01-19] MEDS: ROMOSOZUMAB AQQG 210 MG/2.34 ML SUBCUT (14:00)
[2024-01-19 14:05] VITALS: BMI 21.9
[2024-01-19 14:24] LABS: Albumin Level 3.8 g/dl (3.5-5.0); Chloride 107 mmol/L (98-107); Sodium 140 mmol/L (136-145)
[2024-01-19 14:28] LABS: Blood Urea Nitrogen 10 mg/dl (7-17); Calcium 8.3 mg/dl (8.4-10.2); Carbon Dioxide 30 mmol/L (22.0-30.0); Creatinine Clearance Estimated 51 mL/min (50-200); Estimated Glomerular Filt Rate 64 ml/min (>60); GFR (African American) 77 ML/MIN (>60); Glucose 104 mg/dl (74-100); Phosphorous 2.9 mg/dl (2.5-4.5)
[2024-01-19 14:49] LABS: 25-OH Vitamin D, Total 39.6 ng/mL (30-100)
== END 2024-01-19 14:00 | disposition home or self-care (01) ==
LOC: INF 13:42
PROVIDERS: PCP Nurse Practitioner Family; Visit Provider Internal Medicine
DX: M81.8 Other osteoporosis without current pathological fracture (principal)
CPT/HCPCS: 36415; 80069; 82306; 82523; 84080; 96372; J3111

== ENCOUNTER 2024-02-16 14:33 | Outpatient (CLI) | payer MEDICARE, MEDICAID, SELFPAY ==
[2024-02-16] MEDS: ROMOSOZUMAB AQQG 210 MG/2.34 ML SUBCUT (14:49)
[2024-02-16 14:53] VITALS: BP 102/58; PULSE 72; RESP 18; TEMP 36.9; O2SAT 98
== END 2024-02-16 14:58 | disposition home or self-care (01) ==
LOC: INF 14:34
PROVIDERS: PCP Nurse Practitioner Family; Visit Provider Internal Medicine
DX: M81.0 Age-related osteoporosis without current pathological fracture (principal)
CPT/HCPCS: 96372; J3111

== ENCOUNTER 2024-03-16 13:51 | Outpatient (CLI) | payer MEDICARE, MEDICAID, SELFPAY ==
[2024-03-16 14:00] VITALS: BP 84/52; PULSE 59; RESP 20; TEMP 36.7; O2SAT 95
[2024-03-16] MEDS: ROMOSOZUMAB AQQG 210 MG/2.34 ML SUBCUT (14:00)
== END 2024-03-16 14:26 | disposition home or self-care (01) ==
LOC: INF 13:53
PROVIDERS: PCP Nurse Practitioner Family; Visit Provider Internal Medicine
DX: M81.0 Age-related osteoporosis without current pathological fracture (principal)
CPT/HCPCS: 96372; J3111

== ENCOUNTER 2024-04-19 13:47 | Outpatient (CLI) | payer MEDICARE, MEDICAID, SELFPAY ==
[2024-04-19 14:00] VITALS: BP 94/70; PULSE 83; RESP 17; O2SAT 96
[2024-04-19] MEDS: ROMOSOZUMAB AQQG 210 MG/2.34 ML SUBCUT (14:00)
== END 2024-04-19 14:15 | disposition home or self-care (01) ==
LOC: INF 13:48
PROVIDERS: PCP Nurse Practitioner Family; Visit Provider Internal Medicine
DX: M81.0 Age-related osteoporosis without current pathological fracture (principal)
CPT/HCPCS: 96372; J3111

== ENCOUNTER 2024-05-18 14:31 | Outpatient (CLI) | payer MEDICARE, MEDICAID, SELFPAY ==
[2024-05-18 14:50] VITALS: BP 109/75; PULSE 89; RESP 18; TEMP 36.8; O2SAT 95
[2024-05-18] MEDS: ROMOSOZUMAB AQQG 210 MG/2.34 ML SUBCUT (14:51)
== END 2024-05-18 14:50 | disposition home or self-care (01) ==
LOC: INF 14:32
PROVIDERS: PCP Nurse Practitioner Family; Visit Provider Internal Medicine
DX: K52.9 Noninfective gastroenteritis and colitis, unspecified (principal)
CPT/HCPCS: 96372; J3111

== ENCOUNTER 2024-05-24 13:30 | Outpatient (CLI) | payer MEDICARE, MEDICAID, SELFPAY ==
[2024-05-24 15:05] LABS: Albumin Level 4.1 g/dl (3.5-5.0); Alkaline Phosphatase 101 U/L (38-126); Anion Gap 11.1 mEq/L (5-15); Blood Urea Nitrogen 7 mg/dl (7-17); Carbon Dioxide 32 mmol/L (22.0-30.0); Chloride 101 mmol/L (98-107); Estimated Glomerular Filt Rate 73 ml/min (>60); GFR (African American) 88 ML/MIN (>60); Glucose 81 mg/dl (74-100); Phosphorous 3.5 mg/dl (2.5-4.5); Potassium 4.1 mmoL/L (3.5-5.1); Sodium 140 mmol/L (136-145)
[2024-05-24 15:08] LABS: Creatinine,Urine Random 69 mg/dL (Not Estab.)
[2024-05-24 15:16] LABS: Intact Parathyroid Hormone 164.1 pg/mL (7.5-53.5)
[2024-05-24 15:21] LABS: 25-OH Vitamin D, Total 42.9 ng/mL (30-100)
[2024-05-25 11:21] LABS: Calcium, Urine <0.8 mg/dL (Not Estab.)
[2024-05-30 14:11] LABS: Osteocalcin 44.8 ng/mL (5.0-29.5)
[2024-06-04 03:01] LABS: C-Telopeptide Serum 981 pg/mL (.)
[2024-06-08 17:10] LABS: Creatinine, Urine 64.8 mg/dL (Not Estab.); N-Telo/Creat. Ratio 53 (0-89); N-Telopeptide 303 nmol BCE (Not Estab.)
== END 2024-05-24 23:59 | disposition home or self-care (01) ==
LOC: LAB 13:32
PROVIDERS: PCP Nurse Practitioner Family; Visit Provider Internal Medicine
DX: M81.0 Age-related osteoporosis without current pathological fracture (principal)
CPT/HCPCS: 36415; 80069; 82306; 82340; 82523; 82570; 83937; 83970; 84075; 84080

== ENCOUNTER 2024-06-11 14:00 | Outpatient (CLI) | payer MEDICARE, MEDICAID, SELFPAY ==
[2024-06-11] MEDS: ROMOSOZUMAB AQQG 210 MG/2.34 ML SUBCUT (14:25)
[2024-06-11 14:30] VITALS: BP 125/73; PULSE 93; RESP 18; O2SAT 96
== END 2024-06-11 14:30 | disposition home or self-care (01) ==
LOC: INF 14:00
PROVIDERS: PCP Nurse Practitioner Family; Visit Provider Internal Medicine
DX: M81.0 Age-related osteoporosis without current pathological fracture (principal)
CPT/HCPCS: 96372; J3111

== ENCOUNTER 2024-06-26 13:47 | Outpatient (RCR) | payer MEDICARE, MEDICAID, SELFPAY | END 2024-06-26 23:59 | disposition home or self-care (01) | LOC: PT 13:47 | PROVIDERS: PCP Nurse Practitioner Family; Visit Provider Orthopaedic Surgery Orthopaedic Surgery of the Spine | DX: M43.26 Fusion of spine, lumbar region (principal) | CPT/HCPCS: 97163 ==

== ENCOUNTER 2024-07-16 14:56 | Outpatient (CLI) | payer MEDICARE, MEDICAID, SELFPAY ==
--- OUTSIDE RECORDS SUMMARY | 2024-07-16 14:59 | XMS_ITS | Continuity of Care Document ---
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 Today patient is rating her pain as 7 out of 10, this is no change from her last visit. Of note patient did undergo L4-L5 fusion performed by Dr. Sandie butts in March, she has been doing well following this intervention. She had restarted physical therapy and is having some increased pain with the weather changes. She describes her pain as axial in nature localized to the lumbar spine, the symptoms are aggravated with flexion, extension and twisting. She denies associated radicular symptoms. She did undergo RFA back in October with 80 to 90% pain relief for over 6 months. She is requesting to undergo repeat procedure. We are currently prescribing patient gabapentin 300 mg 3 times daily, oxycodone 7.5 mg 3 times daily and lidocaine 5% topical patches. Patient denies any side effects associate with these medications. She is requiring refills today. [facility] #[id number], drug screen from 03/07/2024 was reviewed and is appropriate. Imaging: Previous CT scan of the lumbar spine from 2021 reveals L2-3 mild right and trace left facet arthropathy mild flattening of the posterior lateral spinal canal likely from facet arthropathy and thickening of ligamentum flavum. L3-4 mild to moderate bilateral facet arthropathy no spinal or bony neural neural foraminal stenosis. L4-5 uncovering of the disc severe bilateral facet arthropathy. L5-S1 severe facet arthropathy no spinal canal or foraminal stenosis Plan: I am scheduling patient for lumbar radiofrequency ablation to bilateral L4-L5. Patient last underwent this procedure in September 2023, she did have 80 to 90% pain relief that lasted for over 6 months. Patient does complain of return of axial lumbar pain worse with flexion, extension and twisting of the lumbar spine with radicular symptoms. Patient does have CT findings of facet arthropathy at these levels. She does continue with the symptoms despite conservative measures including physical therapy, a physician guided home stretching exercise program, oral medications, heat/ice application and massage. Patient is not prescribed chronic anticoagulation. The risk benefits of the procedure were discussed Lyng with patient today and she is wishing move forward. This will be done at a continuous burn of 80 ??C under local anesthetic only with fluoroscopy guidance. I am also refilling patient's prescriptions for Percocet 7.5 mg 3 times daily, gabapentin 300 mg 3 times daily and lidocaine 5% patches. I will provide patient with a 1 month supply of these medications. We will see patient back in office for her RFA, patient was instructed to contact us if she had any further questions or concerns. Dr. Mata has reviewed this chart and agrees with this plan of care. This note was dictated with voice recognition software and may contain errors or omission this visit reflects the ongoing, longitudinal relationship and complexity of managing the patient's chronic pain condition, including continuous coordination of care, treatment planning, and monitoring over time as part of a comprehensive pain management strategy. [email or web address] Not available 07/12/2024 15:01:52 Plan of Treatment Reminders Order Date Submit Date Provider Last Modified By Organization Details Last Modified Time Details Appointments RFA 2024 01:20P Alina Mata MD Not available Not available Not available Lab None recorded. Referral None recorded. Procedures lumbar radiofreq uency ablation (PROC) 2024 025 [email or web address] Not available 07/13/2024 10:33:00 Surgeries None recorded. Imaging None recorded. Medication Orders lidocaine 5 % topical patch 2024 025 [facility], [address] [place], [address], 07/12/2024 16:52:54 gabapenti n 300 mg capsule 2024 025 [facility], [address] [place], [address], 07/13/2024 12:26:43 oxycodone -acetamin ophen 7.5 mg-325 mg tablet 2024 025 [place] [facility], [address] [place], [address], 07/13/2024 12:32:46 Patient TargetsNo targets recorded. Patient InstructionsNo instructions recorded. Reason for Referral None Reported. Problems Name Problem SNOMED Code Status Onset Date Resolution Date Notes Provider Name and Address Organization Details Recorded Time Lumbar spondylosis 568414424 Active 2023 Yong Mata MD [address] [facility],[address], [address], [place] [facility] 4 14:41:57 Arthropathy of lumbar facet joint 573063061 Active 2023 Yong Mata MD [address] [facility],[address], [address], [place] [facility] 4 14:41:58 Long-term drug therapy Active 2024 TIFFANY CHASE [address] [facility],[address], [address], [place] [facility] 5 10:10:41 Continuous opioid dependence 970233792 Active 2024 TIFFANY CHASE [address], [address], [place] [facility] 5 10:10:42 Degeneration of lumbar intervertebral disc 72793793 Active 2021 Yong Mata MD [address] [facility],[address], [address], [place] [facility] 2 14:44:06 Lumbar radiculopathy 121812404 Active 2021 Yong Mata MD [address] [facility],[address], [address], [place] [facility] 2 14:44:07 Inflammation of sacroiliac joint 27270183 Active 2022 Yong Mata MD [address], [address], [place] [facility] 3 18:31:00 Chronic pain syndrome 279255437 Active 2023 Ilana Bagley NP [address], [address], [place] [facility] 4 12:23:47 Problem Notes None recorded. Procedures Surgical History Date Name Laterality Status Provider Name and Address Organization Details Recorded Time 11/10/19 BILAT 1 level LUMBAR RFA completed Yong Mata MD [address], [address], [place] [facility] 11/10/2023 14:55:16 09/15/19 24 Diagnostic Lumbar MBB: 1 Level Bilateral completed Yong Mata MD [address] [facility],[address], [address], [place] [facility] 09/15/2023 16:58:24 07/14/19 24 Diagnostic Lumbar MBB: 1 Level Bilateral completed Yong Mata MD [address] [facility],[address], [address], [place] [facility] 07/14/2023 14:39:57 12/16/19 23 Diagnostic SI Joint Injection Under Fluoroscopy completed Yong Mata MD [address] [facility],[address], [address], [place] [facility] 12/15/2022 10:33:10 11/05/19 23 Diagnostic SI Joint Injection Under Fluoroscopy completed Yong Mata MD [address], [address], [place] [facility] 11/04/2022 17:01:56 10/09/19 Lumbar JULIAN: Interlaminar completed Yong Mata MD [address] [facility],[address], [address], [place] [facility] 10/09/2022 01:37:24 05/14/19 23 Lumbar JULIAN: Interlaminar completed Yong Mata MD [address] ,LETICIA [address] [place] [address], [address], [place] [facility] 05/13/2022 12:33:53 03/30/19 23 Lumbar JULIAN: Interlaminar completed Yong Mata MD [address] [facility] [address], [address], [place] [facility] 03/30/2022 16:32:14 02/03/20 22 Lumbar UJLIAN: Interlaminar completed Yong Mata MD [address], [address], [place] [facility] 02/11/2022 09:52:26 10/28/19 22 Lumbar JULIAN: Interlaminar completed Yong Mata MD [address] [facility],[address], [address], [place] [facility] 10/27/2021 14:42:25 Imaging Results None recorded. Procedure Notes None recorded. Medical Equipment None Reported. Allergies Allergen ID Allergen Name Allergen Category Reaction Reaction Severity Criticality Documentation Date Start Date Code Code System Note Provider Name and Address Organization Details Recorded Time 2174 Product containin g penicilli n (product) medicatio n Not available Not available Not available 01/19/2022 93883 8001 SNOMED Mackenzie paigeer null, [place] [facility] 2 08:42:19 2176 Substance with sulfonami de structure and antibacte rial mechanism of action (substanc e) medicatio n Not available Not available Not available 01/19/2022 24017 8003 SNOMED Mackenzie stamper null, [place] [facility] 2 08:42:23 Medications Name Sig Start Date Stop Date Status Note LastModified by Organization Details LastModified Time RX ALTERNATIVE S GENERAL PAIN CREAM 90 gm Apply 1 to 2 g to the affected area 3-4 times daily 2023 active Not Available Not Available Not Avai lable fluconazole 100 mg tablet TAKE 1 TABLET EVERY DAY BY ORAL ROUTE while taking antibioit ics active Not Available Not Available No t Available methocarbam ol 500 mg tablet active Not Available Not Available Not Available bupropion HCl SR 150 mg tablet,12 hr sustained-r elease 01/19 completed Not Available Not Available Not Available venlafaxine ER 75 mg capsule,ext ended release 24 hr 08/18 completed Not Available Not Available Not Available doxycycline hyclate 100 mg capsule TAKE 1 CAPSULE BY MOUTH TWICE DAILY FOR 7 DAYS 03/29 completed Not Available Not Available Not Available azithromyci n 250 mg tablet take 2 tablets (500 mg) by oral route once daily for 1 day then 1 tablet (250 mg) by oral route once daily for 4 days active Not Available Not Available No t Available fluconazole 150 mg tablet TAKE ONE TABLET BY MOUTH every week active Not Available Not Available No t Available fluconazole 200 mg tablet Take 1 tablet every day by mouth for 3 days. active Not Available Not Available No t Available sucralfate 1 gram tablet TAKE 1 TABLET BY MOUTH THREE TIMES DAILY 08/18 completed Not Available Not Available Not Available promethazin e 12.5 mg tablet TAKE ONE TABLET BY MOUTH EVERY 8 HOURS NEEDED FOR NAUSEA active Not Available Not Available No t Available phenazopyri dine 200 mg tablet Take 1 tablet 3 times a day by oral route as needed for 3 days. 04/20 completed Not Available Not Available Not Available ondansetron HCl 4 mg tablet 04/20 completed Not Available Not Available Not Available famotidine 40 mg tablet TAKE ONE TABLET BY MOUTH EVERY DAY active Not Available Not Available No t Available prednisone 20 mg tablet Take 1 tablet twice a day by oral route for 5 days. active Not Available Not Available No t Available clonazepam 0.5 mg tablet 12/14 completed Not Available Not Available Not Available midodrine 5 mg tablet 08/18 completed Not Available Not Available Not Available metronidazo le 500 mg tablet 01/19 completed Not Available Not Available Not Available tretinoin 0.05 % topical cream APPLY CREAM TOPICALLY TO AFFECTED AREA AT BEDTIME active Not Available Not Available No t Available ciprofloxac in 500 mg tablet Take 1 tablet twice a day by oral route for 10 days. 03/29 completed Not Available Not Available Not Available sulfamethox azole 800 mg-trimetho prim 160 mg tablet 01/19 completed Not Available Not Available Not Available tramadol 50 mg tablet active Not Available Not Available No t Available nystatin-tr iamcinolone 100,000 unit/gram-0 .1 % topical ointment active Not Available Not Available Not Available dicyclomine 20 mg tablet 08/18 completed Not Available Not Available Not Available phenazopyri dine 100 mg tablet Take 1 tablet 3 times a day by oral route for 2 days. 04/20 completed Not Available Not Available Not Available hydrocodone 7.5 mg-acetamin ophen 325 mg tablet Take 1 tablet 3 times a day by oral route for 30 days. 06/22 completed Not Available Not Available Not Available cephalexin 500 mg capsule 09/06 completed Not Available Not Available Not Available pantoprazol e 40 mg tablet,carlos yed release TAKE ONE TABLET BY MOUTH ONCE DAILY active Not Available Not Available No t Available nitrofurant oin macrocrysta l 100 mg capsule Take 1 capsule twice a day by oral route with meal(s) for 10 days, for UTI. active Not Available Not Available No t Available nystatin 100,000 unit/gram topical cream active Not Available Not Available Not Available buspirone 10 mg tablet TAKE 4 TABLETS BY MOUTH EVERY MORNING for IBS active Not Available Not Available No t Available clotrimazol e-betametha sone 1 %-0.05 % topical cream 08/18 completed Not Available Not Available Not Available lidocaine 5 % topical patch active Not Available Not Available Not Available promethazin e 25 mg tablet 09/06 completed Not Available Not Available Not Available ibuprofen 400 mg tablet active Not Available Not Available Not Available gabapentin 300 mg capsule Take 1 capsule 3 times a day by oral route. 2024 active Not Available Not Available Not Avai lable sertraline 25 mg tablet 08/18 completed Not Available Not Available Not Available diclofenac sodium 75 mg tablet,carlos yed release Take 1 tablet twice a day by oral route. 12/14 completed Not Available Not Available Not Available hydrocortis one 2.5 % topical cream active Not Available Not Available Not Available estradiol 0.5 mg tablet active Not Available Not Available Not Available lorazepam 1 mg tablet active Not Available Not Available No t Available ibuprofen 600 mg tablet 12/14 completed Not Available Not Available Not Available oxycodone-a cetaminophe n 7.5 mg-325 mg tablet TAKE 1 TABLET 3 TIMES A DAY BY ORAL ROUTE. 2024 active Not Available Not Available Not Avai lable methylpredn isolone 4 mg tablets in a dose pack TAKE BY ORAL ROUTE DIRECTED PER PACKAGE INSTRUCTI ONS 01/19 completed Not Available Not Available Not Available albuterol sulfate HFA 90 mcg/actuati on aerosol inhaler active Not Available Not Available Not Available ondansetron 4 mg disintegrat ing tablet 4 mg orally every 8 hours As Needed for nausea and vomiting for 4 days active Not Available Not Available No t Available cefdinir 300 mg capsule TAKE 1 CAPSULE BY MOUTH TWICE DAILY FOR 7 DAYS 04/20 completed Not Available Not Available Not Available fluticasone propionate 50 mcg/actuati on nasal spray,suspe nsion INSTILL ONE SPRAY IN EACH NOSTRIL TWICE DAILY active Not Available Not Available No t Available colestipol 1 gram tablet 08/18 completed Not Available Not Available Not Available doxycycline hyclate 100 mg tablet 08/18 completed Not Available Not Available Not Available calcitriol 0.25 mcg capsule active Not Available Not Available Not Available Tums 200 mg (as calcium carbonate 500 mg) chewable tablet Take by oral route. active Not Available Not Available No t Available naproxen 500 mg tablet 500 mg orally twice a day for 5 days 12/14 completed Not Available Not Available Not Available diazepam 5 mg tablet active Not Available Not Available No t Available oxycodone 5 mg tablet active Not Available Not Available No t Available hydroxyzine pamoate 25 mg capsule 08/18 completed Not Available Not Available Not Available escitalopra m 10 mg tablet Take 1 tablet every day by oral route. active Not Available Not Available No t Available escitalopra m 20 mg tablet TAKE ONE TABLET BY MOUTH ONCE DAILY active Not Available Not Available No t Available Premarin 0.625 mg/gram vaginal cream active Not Available Not Available Not Available nitrofurant oin monohydrate /macrocryst als 100 mg capsule Take 1 capsule every 12 hours by oral route for 7 days. 04/20 completed Not Available Not Available Not Available pregabalin 150 mg capsule take 1 capsule by mouth 3 times a day 04/20 completed Not Available Not Available Not Available Xifaxan 550 mg tablet Take 1 tablet 3 times a day by oral route for 14 days. 08/18 completed Not Available Not Available Not Available Suprep Bowel Prep Kit 17.5 gram-3.13 gram-1.6 gram oral solution 08/18 completed Not Available Not Available Not Available Glydo 2 % mucosal jelly in applicator INSERT 1 APPLICATI ON INTO THE URETHRA IF NEEDED FOR MILD PAIN. PLEASE USE FOR VULVAR DISCOMFOR T NEEDED. active Not Available Not Available No t Available Yuvafem 10 mcg vaginal tablet INSERT 1 TABLET VAGINALLY ONCE DAILY FOR 14 DAYS 04/20 completed Not Available Not Available Not Available Paxlovid 300 mg (150 mg x 2)-100 mg tablets in a dose pack TAKE THREE TABLETS BY MOUTH TWICE DAILY FOR 5 DAYS 01/19 completed Not Available Not Available Not Available Vitals Date Recorded Body height Body mass index (BMI) Body weight Heart rate Oxygen saturation Oxygen saturation in Arterial blood by Pulse oximetry Systolic blood pressure Diastolic blood pressure Provider Name and Address Organization Details Last Updated DateTime 5 157.48 cm 23.8 kg/m2 72870.0 1 g 86 /min 98 % 98 % 126 mm[Hg] 86 mm[Hg] GIL GUARDADO [place] [facility] 5 14:49:00 Social History Question Answer Notes LastModified by [employer] Details LastModified Time Tobacco Smoking Status Never Smoker Mackenzie tonia dunn [place] [facility] 01/19/2022 08:42:54 In The 14 Days Before Symptom Onset, Have You Had Close Contact With A Laboratory-confirm ed COVID-19 While That Case Was Ill? No [email or web address] Information n ot available 08/18/2022 In The 14 Days Before Symptom Onset, Have You Had Close Contact With A Person Who Is Under Investigation For COVID-19 While That Person Was Ill? No [email or web address] Information not available 08/18/2022 Have You Been To An Area Known To Be High Risk For COVID-19? No [email or web address] Information not available 08/18/2022 Sex: Unknown Functional Status Question Answer Note LastModified by [employer] Details LastModified Time Do you use any illicit or recreational drugs? No Information not available 01/19/2022 Do you or have you ever used any other forms of tobacco or nicotine? No Information not available 01/19/2022 What is your level of alcohol consumption? None [email or web address] Information not available 08/18/2022 Are you currently employed? No [email or web address] Information not available 12/20/2022 Mental Status None recorded. Family History Nothing Reported. Medical History Condition Response Coronary Artery Disease N Gout N Head Trauma/Injury N Hernia N Thyroid Problems N Depression N COPD N Anemia N Ulcers N Heart Attack (SC) N Diabetes N Anxiety Disorder N Bleeding Disorder N Arthritis N Tuberculosis N AIDS/HIV N Acid Reflux (GERD) N Cancer N Stroke N Asthma N Substance Abuse N Back Injury N High Cholesterol N Hepatitis N Liver Disease N Heart Disease N Fibromyalgia N Headaches N Hypertension N Osteoporosis N Kidney Disease N Gynecological HistoryNo gynecological history recorded. Obstetrics History GPAL:G 0 P 0 0 0 0 Past Encounters Encounter ID Performer Location Encounter Start Date Encounter Closed Date Diagnosis/Indication Diagnosis SNOMED-CT Code Diagnosis ICD10 Code Diagnosis Note [id number] Yong Mata MD [address] [place] [address] 06/14/2024 14:26:45 06/14/2024 15:19:36 Lumbar radiculopathy 408737379 M54.16 Continuous opioid dependence 451158906 F11.20 Lumbar spondylosis 79018 0009 M47.896 Degenerati on of lumbar intervertebral disc 26521290 M51.369 Long-term drug therapy 062700080 Z79.891 Chronic pain syndrome 37 7793036 G89.4 Chronic pain 80781383 G8 9.29 Arthropath y of lumbar facet joint 555117399 M47.816 Inflammati on of sacroiliac joint 48949493 M46.1 Myofascial pain 82340250 9 M79.18 [id number] [place] [address] 07/12/2024 14:30:09 07/12/2024 15:04:02 Lumbar radiculopathy 550871383 M54.16 Continuous opioid dependence 357672577 F11.20 Lumbar spondylosis 71907 0009 M47.896 Degenerati on of lumbar intervertebral disc 15229253 M51.369 Myofascial pain 99780263 9 M79.18 Polyneuropathy 05004645 G62.9 Health Concerns Section Related Observation LastModified by Organization Detai ls LastModified Time None Recorded Concern Status LastModified by Organization Details LastModified Time None Recorded Payers Encounter Date Sequence Insurance Name Policy Number Policy Rhodes Covered Member ID Rhodes Member ID Guarantor Name 07/12/2024 1 [place]MEDICARE REPLACEMENT REGIONAL PPO) [id number] Luna Tiffanie Kellen [id number] Lunamay[address] Foreman Notes Date Note Type Note Provider Name and Address Organization Details Recorded Time 07/12/2024 text/html Follow-up (meds & injections)Reporte d bypatient.Improvem ent:Pain is the same as compared to last visit. Pain Scores:Average pain- 7/10; Current pain- 8/10 Activities of Daily Living (ADL):Living independently.; Able to bathe/groom without assistance.; Able to complete transition coach.; Walking without assistance. Adverse Reactions:No nausea.; No vomiting.; No constipation.; No itching.; No sedation.; No respiratory depression.; No sexual dysfunction. Physical Therapy:Completed course in the past- Recent Injections:Epidura l steroid injection: 80%}}; Pain relief from injections- 80% lasting for ; 05/13/2022 (Thera) ILESI L4/5 85% pain relief TIFFANY CHASE [address], [address], [place] [facility] 07/13/2024 10:33:03 OBGyn Episode No OBEpisode recorded.
--- OUTSIDE RECORDS SUMMARY | 2024-07-16 14:59 | XMS_ITS | Continuity of Care Document ---
Author Organization [facility] KALEIGH Dawson [place] Address [address] [facility] [[email or web address] [address] Care Team Providers Care Asbestos Abatement Technician Name Role Phone LIDYADELLALALO Holden Pecan Sheller Assessment No assessment recorded. Plan of Treatment Reminders Order Date Submit Date Provider Last Modified By Organization Details Last Modified Time Details Appointments None recorded. Lab None recorded. Referral None recorded. Procedures None recorded. Surgeries None recorded. Imaging None recorded. Medication Orders Retin-A 0.05 % topical cream 025 025 [facility] #[id number], [address], [phone], 5 11:39:45 Patient TargetsNo targets recorded. Patient InstructionsNo instructions recorded. Reason for Referral None Reported. Procedures Surgical History Date Name Laterality Status Provider Name and Address Organization Details Recorded Time operation on vertebra completed Lanette Vargas [facility] 06/25/2024 11:24:36 Imaging Results None recorded. Procedure Notes None recorded. Medical Equipment None Reported. Allergies Allergen ID Allergen Name Allergen Category Reaction Reaction Severity Criticality Documentation Date Start Date Code Code System Note Provider Name and Address Organization Details Recorded Time 639798 Product containin g penicilli n (product) medicatio n Not available Not available Not available 01/23/20162012 93933 8001 SNOMED Comme nt: Creat ed By: Lidia Greenwood;Judy fountain Date: 2012 11:16 :28 AM; Not Available [facility] 6 03:21:26 Medications Name Sig Start Date Stop Date Status Note LastModified by Organization Details LastModified Time Retin-A 0.05 % topical cream APPLY TO THE AFFECTED AREA(S) BY TOPICAL ROUTE ONCE DAILY AT BEDTIME 2024 active pt requested different pharmacy Not Available Not Available Not Available Lidoderm 5 % topical patch active Medicatio n Descripti on: lidocaine topical; Route:top ical; refills:0 Not Available Not Available Not Available Prozac 10 mg tablet Daily active Frequency : daily;Med ication Descripti on: fluoxetin e; Dosage:1; Route:ora l; refills:0 ; Quantity: 30 Not Available Not Available Not Available Lortab 5 mg-500 mg tablet As Directed active Frequency : as direct.;A lt Frequency : prn;Medic ation Descripti on: acetamino phen-hydr ocodone; Dosage:1; Route:ora l; refills:0 ; Quantity: 45 tablet Not Available Not Available Not Available Lyrica 100 mg capsule Daily active Frequency : daily;Med ication Descripti on: pregabali n; Dosage:8; Route:ora l; refills:0 Not Available Not Available Not Available BuSpar active Not Available Not Availa ble Not Available gabapentin active Not Available Not Av ailable Not Available Vitals None Recorded Social History Question Answer Notes LastModified by Organizat ion Details LastModified Time Sunscreen Use? Yes [email or web address] Informatio n not available 06/25/2024 Tanning Bed Use No [email or web address] Informati on not available 06/25/2024 What Was The Date Of Your Most Recent Tobacco Screening? 06/25/2024 [email or web address] Information not available 06/25/2024 Sex: Unknown Functional Status None recorded. Mental Status None recorded. Family History Nothing Reported. Medical History No medical history recorded. Gynecological HistoryNo gynecological history recorded. Obstetrics History GPAL:G 0 P 0 0 0 0 Past Encounters Encounter ID Performer Location Encounter Start Date Encounter Closed Date Diagnosis/Indication Diagnosis SNOMED-CT Code Diagnosis ICD10 Code Diagnosis Note [id number] TIFFANY CARDOSO [address] [place] [address] 06/25/2024 11:13:34 06/25/2024 12:56:28 Multiple benign melanocytic nevi 524404108 L81.4 L82.1 The benign nature of keratoses and lentigines was discussed with the patient. Sun protection with SPF 30 broad spectrum sunscreen and protective gear discussed. Look for physical casey sunscreens with at least SPF 30 containing zinc oxide or titanium dioxide as active ingredient . Recommend monthly self examinatio ns and yearly full skin examinatio n with a dermatolog y provider. Recommend yearly eye exam. Recommend OTC Vitamin D supplement . Patient instructed to call if any suspicious lesions are noted. Wrinkled skin 351409337 L98.8 The nature of the diagnosis was discussed. Rx prescribed for Rx Retin-A 0.05% topical cream, QHS. SE reviewed.U se goodrx to pickling grader Rx. Seborrheic keratosis 394 610182 L82.1 The nature of the diagnosis was discussed. Benign appearing lesions.Si nce bothersome , will tx w/ LN2 (No charge).Le sions tx'ed today may persist. Milia 162800917 L72.0 The nature of the diagnosis was discussed. Benign clogged pore.Acne surgery performed. Hold off on retin-a for 1 wk. Health Concerns Section Related Observation LastModified by Organization Detai ls LastModified Time None Recorded Concern Status LastModified by Organization Details LastModified Time None Recorded Payers Encounter Date Sequence Insurance Name Policy Number Policy Rhodes Covered Member ID Rhodes Member ID Guarantor Name 06/25/2024 1 [place] BC[employer] OF [facility] MEDIBLUE PLUS (MEDICARE REPLACEMENT HMO) [id number] Luna Foreman [id number] Luna Foreman Notes Date Note Type Note Provider Name and Address Organization Details Recorded Time 06/25/2024 text/html face and neck ex amlast seen: 10/2022hx:nonereports: multiple concernsdeclined fbse TIFFANY CARDOSO [address], [place], [address], [place] [facility] 06/25/2024 12:12:32 OBGyn Episode No OBEpisode recorded.
--- OUTSIDE RECORDS SUMMARY | 2024-07-16 14:59 | XMS_ITS | Data Portability ---
Author Organization [facility] GAYATHRI Dawson LOVE[place] CLOSED Address [address] [place] [address] Care Team Providers Care Occupational Therapy Director Name Role Phone LALO REYNOLDS Portrait Consultant Assessment No assessment recorded. Plan of Treatment Reminders Order Date Submit Date Provider Last Modified By Organization Details Last Modified Time Details Appointments None recorded. Lab None recorded. Referral None recorded. Procedures None recorded. Surgeries None recorded. Imaging None recorded. Medication Orders Retin-A 0.05 % topical cream 025 025 [facility] #[id number], [address], [phone], 5 11:39:45 Patient TargetsNo targets recorded. Patient InstructionsNo instructions recorded. Reason for Referral None Reported. Procedures Surgical History Date Name Laterality Status Provider Name and Address Organization Details Recorded Time operation on vertebra completed Lanette Vargas [facility] 06/25/2024 11:24:36 Imaging Results None recorded. Procedure Notes None recorded. Medical Equipment None Reported. Allergies Allergen ID Allergen Name Allergen Category Reaction Reaction Severity Criticality Documentation Date Start Date Code Code System Note Provider Name and Address Organization Details Recorded Time 610091 Product containin g penicilli n (product) medicatio n Not available Not available Not available 01/23/20162012 39692 8001 SNOMED Comme nt: Creat ed By: [...] ion Details LastModified Time Sunscreen Use? Yes [email or web address] Informatio n not available 06/25/2024 Tanning Bed Use No [email or web address] Informati on not available 06/25/2024 What Was The Date Of Your Most Recent Tobacco Screening? 06/25/2024 [email or web address] Information not available 06/25/2024 Sex: Unknown Functional Status None recorded. Mental Status None recorded. Family History Nothing Reported. Medical History No medical history recorded. Gynecological HistoryNo gynecological history recorded. Obstetrics History GPAL:G 0 P 0 0 0 0 Past Encounters Encounter ID Performer Location Encounter Start Date Encounter Closed Date Diagnosis/Indication Diagnosis SNOMED-CT Code Diagnosis ICD10 Code Diagnosis Note [id number] TIFFANY CARDOSO [place] [address] [place] [address] 06/25/2024 11:13:34 06/25/2024 12:56:28 Multiple benign melanocytic nevi 038890116 L81.4 L82.1 The benign nature of keratoses [...] any suspicious lesions are noted. Wrinkled skin 063285246 L98.8 The nature of the diagnosis was discussed. Rx prescribed for Rx Retin-A 0.05% topical cream, QHS. SE reviewed.U se goodrx to pickler helper Rx. Seborrheic keratosis 394 024113 L82.1 The nature of the diagnosis was discussed. Benign appearing lesions.Si nce bothersome , will tx w/ LN2 (No charge).Le sions tx'ed today may persist. Milia 831593368 L72.0 The nature of the diagnosis was discussed. Benign clogged pore.Acne surgery performed. Hold off on retin-a for 1 wk. Health Concerns Section Related Observation LastModified by Organization Detai ls LastModified Time None Recorded Concern Status LastModified by Organization Details LastModified Time None Recorded Advance Directives Directive None Recorded Payers Insurance Date Sequence Insurance Name Policy Number Policy Rhodes Covered Member ID Rhodes Member ID Guarantor Name 06/25/2024 1 [place] (MEDICARE REPLACEMENT HMO) [id number] Luna Foreman [id number] Luna Foreman 06/25/2024 1 *SELF PAY* Ca romero Foreman Notes Date Note Type Note Provider Name and Address Organization Details Recorded Time 06/25/2024 text/html face and neck ex amlast seen: 10/2022hx:nonereports: multiple concernsdeclined fbse TIFFANY CARDOSO [address], [place], [address], [facility] 06/25/2024 12:12:32 OBGyn Episode No OBEpisode recorded.
--- OUTSIDE RECORDS SUMMARY | 2024-07-16 14:59 | XMS_ITS | Data Portability ---
Author Organization [facility] Address [address] [place] [address] Care Team Providers Care Programming Internship Name Role Phone ADRREN GUTIERREZ Primary Care Provider DARREN GUTIERREZ Referring Provider [phone] Assessment Encounter Date Assessment Date Assessment LastModified by Organization Details LastModified Time 03/07/2024 03/07/2024 This is a pleasant 63-year-old female that presents today for prescription refill and follow-up. We are currently treating her for degenerative disc disease of the lumbar spine with radiculopathy. Today patient is rating her pain a 9 out of 10, this is increased from her last visit with a pain level of 8 out of 10. During her last visit we did start patient on gabapentin, she states that this medication has been helpful in alleviating her radicular symptoms. She does share that she has a preoperative appointment on the 6 for her surgery on April [address] Hooper. She is requesting to see Dr. Mata during her next appointment as she has some questions regarding this procedure. We are currently prescribing her gabapentin 300 mg 3 times daily and Percocet 7.5 mg 3 times daily, patient denies any side effects associate with these medications. She is requiring refills today. [facility] #[id number], drug screen from 12/08/2023 was reviewed and was positive for THC. We will continue to monitor this. Urine drug screen is needed to verify patient's compliance with the pain contract, this will be ordered due to treatments of chronic pain with a potentially abused medication. Plan: I am refilling patient's prescription for gabapentin 300 mg 3 times daily and Percocet 7.5 mg 3 times daily, I will provide the patient with a 1 month supply of these medications. We will see her back in office in 1 month for prescription refill and follow-up, patient was instructed to contact us if she has any further questions or concerns. Dr. Mata has reviewed this chart and agrees with this plan of care. This note was dictated with voice recognition software and may contain errors or omission Not available 03/07/2024 15:09:06 04/05/2024 04/05/2024 This is a pleasant 63-year-old female that presents today for prescription refill. We are currently treating her for degenerative disc disease of the lumbar spine with radiculopathy. Today patient is rating her pain a 10 out of 10, this is increased from her last visit with a pain level of 10 out of 10. She does describe her pain is increased due to the weather changes and driving. She does have occasional radiation of pain down her left leg but a majority of her pain does stay in the lumbar spine. She does share that she is scheduled for L4-L5 fusion to be performed by Dr. Hooper at neurosurgery on April 23. Although she is not excited to have surgery she is looking forward to possible pain relief. Otherwise patient is doing very well with her current medication regimen, she denies changes to location or intensity of her pain. She denies any new injury or hospitalization. We are currently prescribing her gabapentin 300 mg 3 times daily and Percocet 7.5 mg 3 times daily, patient denies any side effects associated with these medications. Again she is requiring refills. [facility] #[id number], drug screen from 03/07/2024 was reviewed and was appropriate. Plan: I am refilling patient's prescriptions for gabapentin 300 mg 3 times daily and Percocet 7.5 mg 3 times daily. I will provide her with 1 month supply of this medication. I did discuss that if Dr. Hooper is going to prescribe her postoperative pain medications she must stop our oral medications until she completes her postoperative medications. She was understanding and agreement with this plan. We will see her back in office in 1 month for prescription refill follow-up, patient was instructed to contact us if she has any further questions or concerns. Dr. Mata has reviewed this chart and agrees with this plan of care. This note was dictated with voice recognition software and may contain errors or omission Not available 04/05/2024 16:52:48 05/08/2024 05/08/2024 This is a pleasant 63-year-old female who presents today for prescription refill and follow-up. We are currently treating patient for degenerative disc disease of the lumbar spine with radiculopathy. Today patient is rating her pain a 10 out of 10, no change from her last visit. Since we last saw patient she did undergo L4-L5 fusion performed by Dr. Ibarra at neurosurgery, patient has been doing very well following this intervention. She does complain of some postsurgical pain but is otherwise doing well. She is able to ambulate without a cane or walker. She has continued with walking as exercise. She did follow with today before her appointment here for a wound check, her surgical incision has been healing well. She is scheduled to follow back up with them next month. Otherwise patient is doing well, she is requesting we send in a prescription for lidocaine patches as she has been purchasing the [id number] patches with great relief in symptoms. We are currently managing her with gabapentin 300 mg 3 times daily and Percocet 7.5 mg 3 times daily. Patient denies any side effects associated with these medications, she is requiring refills today. [facility] #[id number], drug screen from 03/07/2024 was reviewed and is appropriate. Plan: I am refilling patient's prescriptions for gabapentin 300 mg 3 times daily and Percocet 7.5 mg 3 times daily, I will provide the patient with 1 month supply of these medications. I am also sending in a prescription for lidocaine 5% patches, I will provide her with 30 patches to be worn up to once every 12 hours. We will see patient back in office in 1 month for prescription refill and follow-up, patient was instructed to contact us if she has any further questions or concerns. Dr. Mata has reviewed this chart and agrees with this plan of care. This note was dictated with voice recognition software and may contain errors or omission Not available 05/08/2024 14:01:53 06/14/2024 06/14/2024 This is a pleasant 63-year-old female that presents today for prescription refill and follow-up. Since we last saw patient she did undergo L4-L5 fusion performed by Dr. Ibarra. Patient states she has been doing very well following this intervention, she has had some sciatic type pain. She was hoping to undergo an injection with our clinic, Dr. Hooper said she must wait longer since she is still in her postoperative period. Today patient is rating her pain a 7 out of 10, this is improvement from her last visit with a pain level of 10 out of 10. She continues with some surgical site soreness. She presents today for prescription refills. We are currently prescribing her Percocet 7.5 mg 3 times daily, gabapentin 300 mg 3 times daily and lidocaine 5% topical patches. Patient denies any side effects associated with these medications. She is requiring refills again. [facility] #[id number], drug screen from 03/07/2024 was reviewed and was appropriate. Plan: I am refilling patient's prescriptions for Percocet 7.5 mg 3 times daily, gabapentin 300 mg 3 times daily and lidocaine 5% topical patches. I will provide the patient with a 1 month supply of these medications. We will see patient back in office in 1 month for prescription refill and follow-up. At this time we may schedule her for an injection if her pain still persist. Dr. Mata has reviewed this chart and agrees with this plan of care. This note was dictated with voice recognition software and may contain errors or omission this visit reflects the ongoing, longitudinal relationship and complexity of managing the patient's chronic pain condition, including continuous coordination of care, treatment planning, and monitoring over time as part of a comprehensive pain management strategy. Not available 06/14/2024 16:00:28 07/12/2024 07/12/2024 This is a pleasant 63-year-old female that presents today for prescription refill and follow-up. Today patient is rating her pain as 7 out of 10, this is no change from her last visit. Of note patient did undergo L4-L5 fusion performed by Dr. Hooper back in March, she has been doing well [...] these medications. She is requiring refills today. [facility] #[id number], drug screen from 03/07/2024 was reviewed and [...] part of a comprehensive pain management strategy. Not available 07/12/2024 15:01:52 Plan of Treatment [...] 5 % topical patch 2024 025 [facility], [address], [place], [address], 07/12/2024 16:52:54 gabapenti n 300 mg capsule 2024 025 [facility], [address], [place], [address], 07/13/2024 12:26:43 oxycodone -acetamin ophen 7.5 mg-325 mg tablet 2024 025 [facility], [address] [place], [address], 07/13/2024 12:32:46 gabapenti n 300 mg capsule 2024 025 [facility], [address], [place], [address], 06/15/2024 12:04:10 lidocaine 5 % topical patch 2024 025 [facility], [address] [place], [address], 06/14/2024 22:16:21 oxycodone -acetamin ophen 7.5 mg-325 mg tablet 2024 025 [facility], [address] [place], [address], 06/15/2024 12:04:09 gabapenti n 300 mg capsule 2024 025 [facility], [address] [place], [address], 05/11/2024 11:37:22 oxycodone -acetamin ophen 7.5 mg-325 mg tablet 2024 025 [facility], [address], [place], [address], 05/11/2024 11:37:21 lidocaine 5 % topical patch 2024 025 [facility], [address], [place], [address], 05/08/2024 19:47:48 gabapenti n 300 mg capsule 2024 025 [employer] [facility], [address], [place], [address], 04/06/2024 08:52:37 oxycodone -acetamin ophen 7.5 mg-325 mg tablet 2024 025 [employer] [facility], [address], [place], [address], 04/06/2024 08:52:37 gabapenti n 300 mg capsule 2024 025 [facility], [address], [place], [address], 03/08/2024 13:03:30 oxycodone -acetamin ophen 7.5 mg-325 mg tablet 2024 025 [facility], [address] , [place], [address], 03/08/2024 13:03:32 Patient TargetsNo targets recorded. Patient InstructionsNo instructions recorded. Reason for Referral None Reported. Results Created Date Observation Date Name Description Value Unit Range Abnormal Flag Note LastModifiedBy Organization Detail LastModifiedTime Result Notes None recorded. Problems Name Problem SNOMED Code Status Onset Date Resolution Date Notes Provider Name and Address Organization Details Recorded Time Lumbar spondylosis 351902166 Active 2023 Yong Mata MD [address] [facility],[address], [address], [place] [facility] 4 14:41:57 Arthropathy of lumbar facet joint 155362566 Active 2023 Yong Mata MD [address], [address], [place] [facility] 4 14:41:58 Long-term drug therapy Active [address], [address], [place] [facility] 5 10:10:41 Continuous opioid dependence 066730135 Active 2024 [facility] [address], [address], [place] [facility] 5 10:10:42 Degeneration of lumbar intervertebral disc 91644464 Active 2021 Yong Mata MD [address], [address], [place] [facility] 2 14:44:06 Lumbar radiculopathy 253812675 Active 2021 Yong Mata MD [address] [place] [address], [address], [place] [facility] 2 14:44:07 Inflammation of sacroiliac joint 67706971 Active 2022 Yong Mata MD [address], [address], [place] [facility] 3 18:31:00 Chronic pain syndrome 680928912 Active 2023 Ilana Bagley NP [address], [address], [place] [facility] 4 12:23:47 Problem Notes None recorded. Procedures Surgical History Date Name Laterality Status Provider Name and Address Organization Details Recorded Time 11/10/19 24 BILAT 1 level LUMBAR RFA completed Yong Mata MD [address] [place] [address] [place], [address], [place] [facility] 11/10/2023 14:55:16 09/15/19 24 Diagnostic Lumbar MBB: 1 Level Bilateral completed Yong Mata MD [address],[place] [address] [place] [address], [address], [place] [facility] 09/15/2023 16:58:24 07/14/19 24 Diagnostic Lumbar MBB: 1 Level Bilateral completed Yong Mata MD [address], [address], [place] [facility] 07/14/2023 14:39:57 12/16/19 23 Diagnostic SI Joint Injection Under Fluoroscopy completed Yong Mata MD [address] [facility],[address], [address], [place] [facility] 12/15/2022 10:33:10 11/05/19 23 Diagnostic SI Joint Injection Under Fluoroscopy completed Yong Mata MD [address] [facility] [address], [address], [place] [facility] 11/04/2022 17:01:56 10/09/19 23 Lumbar JULIAN: Interlaminar completed Yong Mata MD [address], [address], [place] [facility] 10/09/2022 01:37:24 05/14/19 23 Lumbar JULIAN: Interlaminar completed Yong Mata MD [address], [address], [place] [facility] 05/13/2022 12:33:53 03/30/19 23 Lumbar JULIAN: Interlaminar completed Yong Mata MD [address], [address], [place] [facility] 03/30/2022 16:32:14 02/03/20 22 Lumbar JULIAN: Interlaminar completed Yong Mata MD [address],[place] [address] [place] [address], [address], [place] [facility] 02/11/2022 09:52:26 10/28/19 22 Lumbar JULIAN: Interlaminar completed Yong Mata MD [address] [facility], [place], [address], [place] [facility] 10/27/2021 14:42:25 Imaging Results None recorded. Procedure Notes None recorded. Medical Equipment None Reported. Allergies Allergen ID Allergen Name Allergen Category Reaction Reaction Severity Criticality Documentation Date Start Date Code Code System Note Provider Name and Address Organization Details Recorded Time 2174 Product containin g penicilli n (product) medicatio n Not available Not available Not available 01/19/2022 33368 8001 SNOMED Mackenzie stamper null, [place] - [facility] 2 08:42:19 2175 Substance with sulfonami de structure and antibacte rial mechanism of action (substanc e) medicatio n Not available Not available Not available 01/19/2022 15111 8003 SNOMED Mackenzie stamper null, [place] [facility] 08:42:23 Medications Name Sig Start Date Stop [...] height Body mass index (BMI) Body weight Oxygen saturation Oxygen saturation in Arterial blood by Pulse oximetry Heart rate Systolic blood pressure Diastolic blood pressure Provider Name and Address Organization Details Last Updated DateTime 5 157.48 cm 23.8 kg/m2 96922.0 1 g 98 % 98 % 88 /min 124 mm[Hg] 86 mm[Hg] GIL GUARDADO [place] [facility] 5 14:41:28 Date Recorded Body height Provider Name an d Address Organization Details Last Updated DateTime 04/05/2024 157.48 cm Radha Taylordonado [place] [facility] 04/05/2024 14:10:00 Date Recorded Body height Heart rate Respiratory rate Body mass index (BMI) Body weight Oxygen saturation Oxygen saturation in Arterial blood by Pulse oximetry Systolic blood pressure Diastolic blood pressure Provider Name and Address Organization Details Last Updated DateTime 5 157.48 cm 88 /min 18 /min 23.8 kg/m2 09314.0 1 g 98 % 98 % 124 mm[Hg] 86 mm[Hg] Madelyn Bautista [place] [facility] 5 13:38:28 Date Recorded Body height Heart rate Respiratory rate Body mass index (BMI) Body weight Heart rate Oxygen saturation Oxygen saturation in Arterial blood by Pulse oximetry Systolic blood pressure Diastolic blood pressure Provider Name and Address Organization Details Last Updated DateTime 5 157.48 cm 88 /min 18 /min 23.8 kg/m2 10935.0 1 g 90 /min 98 % 98 % 124 mm[Hg] 86 mm[Hg] Madelyn Bautista [place] [facility] 5 14:35:18 Date Recorded Body height Body mass index (BMI) Body weight Heart rate Oxygen saturation Oxygen saturation in Arterial blood by Pulse oximetry Systolic blood pressure Diastolic blood pressure Provider Name and Address Organization Details Last Updated DateTime 5 157.48 cm 23.8 kg/m2 38791.0 1 g 86 /min 98 % 98 % 126 mm[Hg] 86 mm[Hg] GIL GUARDADO [place] [facility] 5 14:49:00 Social History Question Answer Notes LastModified by Organizat ion Details LastModified Time Tobacco Smoking Status Never Smoker Mackenzie dunn [place] [facility] 01/19/2022 08:42:54 In The 14 Days Before Symptom Onset, Have You Had Close Contact With A Laboratory-confirm ed COVID-19 While That Case Was Ill? No [email or web address] Information n ot available 08/18/2022 In The 14 Days Before Symptom Onset, Have You Had Close Contact With A Person Who Is Under Investigation For COVID-19 While That Person Was Ill? No [email or web address] Information not available 08/18/2022 Have You Been To An Area Known To Be High Risk For COVID-19? No Information not available 08/18/2022 Sex: Unknown Functional Status Question Answer Note LastModified by Organizat ion Details LastModified Time Do you use any illicit or recreational drugs? No Information not available 01/19/2022 Do you or have you ever used any other forms of tobacco or nicotine? No Information not available 01/19/2022 What is your level of alcohol consumption? None [email or web address] Information not available 08/18/2022 Are you currently employed? No [email or web address] Information not available 12/20/2022 Mental Status None recorded. Family History Nothing Reported. Medical History Condition Response Coronary Artery Disease N Gout N Hernia N Head Trauma/Injury N Thyroid Problems N Depression N COPD N Anemia N Heart Attack (HI) N Ulcers N Diabetes N Anxiety Disorder N Bleeding Disorder N Arthritis N Tuberculosis N AIDS/HIV N Acid Reflux (GERD) N Cancer N Stroke N Asthma N Substance Abuse N Back Injury N High Cholesterol N Hepatitis N Liver Disease N Heart Disease N Headaches N Fibromyalgia N Hypertension N Osteoporosis N Kidney Disease N Gynecological HistoryNo gynecological history recorded. Obstetrics History GPAL:G 0 P 0 0 0 0 Past Encounters Encounter ID Performer Location Encounter Start Date Encounter Closed Date Diagnosis/Indication Diagnosis SNOMED-CT Code Diagnosis ICD10 Code Diagnosis Note [id number] Yong Mata MD [facility] [address] [facility] [address] [place] [address] 10/27/2021 13:06:17 10/27/2021 14:14:54 Degeneration of lumbar intervertebral disc 03380732 M51.36 Lumbar radiculopathy 128 391181 M54.16 [id number] Yong Mata MD [facility] [address] [facility] [address] [place] [address] 01/19/2022 08:33:14 01/19/2022 09:26:52 Degeneration of lumbar intervertebral disc 91926106 M51.36 Lumbar radiculopathy 128 016347 M54.16 [id number] Yong Mata MD [facility] [address] [place] [address],[place] [address] 02/02/2022 12:48:00 02/02/2022 13:28:11 Degeneration of lumbar intervertebral disc 92201495 M51.36 Lumbar radiculopathy 128 158079 M54.16 [id number] Yong Mata MD [facility] [address] [place] [address],[place] [address] 03/30/2022 14:26:17 03/30/2022 16:03:59 Degeneration of lumbar intervertebral disc 12995754 M51.36 Lumbar radiculopathy 128 589516 M54.16 [id number] Peter Christi [address] 6 04/27/2022 11:03:58 04/27/2022 11:27:12 Degeneration of lumbar intervertebral disc 42038994 M51.36 Lumbar radiculopathy 128 287444 M54.16 [id number] Yong Mata MD [facility] [place] [facility] [address] [place] [address],[place] [address] 05/13/2022 10:32:29 05/13/2022 11:14:06 Degeneration of lumbar intervertebral disc 20760337 M51.36 Lumbar radiculopathy 128 365968 M54.16 [id number],[place] [address] 06/03/2022 10:04:40 06/03/2022 10:21:21 Lumbar radiculopathy 176725192 M54.16 Degenerati on of lumbar intervertebral disc 86077778 M51.36 [id number] Yong Mata MD [address] [facility] [address] [place] [address] 10/08/2022 13:46:10 10/08/2022 15:08:50 Lumbar radiculopathy 216363264 M54.16 Degenerati on of lumbar intervertebral disc 61037629 M51.36 [id number] Peter Barraza [address] [place] [address] 3 09/06/2022 13:43:35 09/06/2022 14:19:34 Lumbar radiculopathy 601622391 M54.16 Degenerati on of lumbar intervertebral disc 53324763 M51.36 [id number] Yong Mata MD [address] [place] [address] 3 10/21/2022 15:02:03 10/21/2022 16:07:23 Lumbar radiculopathy 576848755 M54.16 Degenerati on of lumbar intervertebral disc 29747123 M51.36 Inflammati on of sacroiliac joint 30241287 M46.1 [id number] Yong Mata MD [address] [place] [address] 3 11/04/2022 14:13:12 11/04/2022 14:39:38 Degeneration of lumbar intervertebral disc 03034109 M51.36 Inflammati on of sacroiliac joint 31763330 M46.1 Lumbar radiculopathy 128 872612 M54.16 [id number] Yong Mata MD [address] [place] [address] 3 11/25/2022 14:27:36 11/25/2022 14:58:12 Degeneration of lumbar intervertebral disc 03950995 M51.36 Inflammati on of sacroiliac joint 83776193 M46.1 Lumbar radiculopathy 128 123570 M54.16 [id number] Yong Mata MD [address] [place] [address] 3 12/15/2022 09:31:04 12/15/2022 10:30:53 Low back pain 609940955 M54.50 Degenerati on of lumbar intervertebral disc 09414940 M51.36 Inflammati on of sacroiliac joint 52528582 M46.1 Lumbar radiculopathy 128 619553 M54.16 [id number] Ilana Bagley NP [address] [place] [address] 3 12/24/2022 13:44:17 12/24/2022 14:40:02 Lumbar radiculopathy 288708755 M54.16 Degenerati on of lumbar intervertebral disc 19823596 M51.36 Inflammati on of sacroiliac joint 03897771 M46.1 Pain in coccyx 38067104 M53.3 [id number] Yong Mata MD [address] [place] [address] 3 01/10/2023 13:28:15 01/10/2023 14:10:05 Degeneration of lumbar intervertebral disc 42937614 M51.36 Inflammati on of sacroiliac joint 20846060 M46.1 Lumbar radiculopathy 128 975485 M54.16 [id number] Yong Mata MD [address] [place] [address] 3 02/03/2023 13:37:47 02/04/2023 11:58:24 Degeneration of lumbar intervertebral disc 59265635 M51.36 Inflammati on of sacroiliac joint 54191017 M46.1 Lumbar radiculopathy 128 774486 M54.16 [id number] Ilana Bagley NP [address] [place] [address] 3 03/29/2023 11:05:58 03/29/2023 12:12:07 Lumbar radiculopathy 391307997 M54.16 Degenerati on of lumbar intervertebral disc 80528596 M51.36 Inflammati on of sacroiliac joint 44720623 M46.1 Chronic pain syndrome 37 5201889 G89.4 [id number] ROBERT BE NP [address] [place] [address] 3 04/21/2023 12:51:29 04/21/2023 14:33:35 Lumbar radiculopathy 285773703 M54.16 Degenerati on of lumbar intervertebral disc 84711269 M51.36 Chronic pain syndrome 37 1162360 G89.4 Inflammati on of sacroiliac joint 79414204 M46.1 Chronic pain 90246466 G8 9.29 [id number] Yong Mata MD [address] [place] [address] 05/19/2023 12:54:10 05/19/2023 14:08:28 Lumbar radiculopathy 614763431 M54.16 Chronic pain syndrome 37 6038184 G89.4 Degenerati on of lumbar intervertebral disc 04850706 M51.36 Inflammati on of sacroiliac joint 46806388 M46.1 [id number] Yong Mata MD [address] [place] [address] 06/23/2023 14:26:02 06/23/2023 15:23:27 Degeneration of lumbar intervertebral disc 28007993 M51.36 Chronic pain syndrome 37 3265697 G89.4 Inflammati on of sacroiliac joint 61298103 M46.1 Lumbar radiculopathy 128 646524 M54.16 Lumbar spondylosis 48231 0009 M47.896 Arthropath y of lumbar facet joint 072330776 M47.816 [id number] Yong Mata MD [address] [place] [address] 07/14/2023 13:35:47 07/14/2023 14:30:35 Lumbar radiculopathy 568346006 M54.16 Chronic pain syndrome 37 8109591 G89.4 Degenerati on of lumbar intervertebral disc 19254801 M51.36 Inflammati on of sacroiliac joint 61282235 M46.1 Lumbar spondylosis 85599 0009 M47.896 Arthropath y of lumbar facet joint 935363372 M47.816 [id number] Yong Mata MD [address] [place] [address] 08/18/2023 14:08:31 08/18/2023 14:58:34 Lumbar radiculopathy 741644770 M54.16 Arthropath y of lumbar facet joint 375262004 M47.816 Chronic pain syndrome 37 8003539 G89.4 Degenerati on of lumbar intervertebral disc 16076634 M51.36 Inflammati on of sacroiliac joint 25346258 M46.1 Lumbar spondylosis 72946 0009 M47.896 [id number] Yong Mata MD [address] [place] [address] 3 09/15/2023 14:37:31 09/15/2023 15:29:26 Lumbar radiculopathy 208919761 M54.16 Arthropath y of lumbar facet joint 150699795 M47.816 Chronic pain syndrome 37 0232402 G89.4 Degenerati on of lumbar intervertebral disc 82209802 M51.36 Inflammati on of sacroiliac joint 94780766 M46.1 Lumbar spondylosis 40342 0009 M47.896 [id number] ZI PARR NP [address] [place] [address] 3 10/13/2023 14:28:07 10/13/2023 15:04:25 Arthropathy of lumbar facet joint 185166309 M47.816 Degenerati on of lumbar intervertebral disc 42575427 M51.36 [id number] Yong Mata MD [address] [place] [address] 3 11/10/2023 13:04:07 11/10/2023 15:05:19 Lumbar radiculopathy 780865655 M54.16 Arthropath y of lumbar facet joint 182417867 M47.816 Degenerati on of lumbar intervertebral disc 02140080 M51.36 Inflammati on of sacroiliac joint 20971570 M46.1 Lumbar spondylosis 05931 0009 M47.896 Chronic pain syndrome 37 5818413 G89.4 38830 Yong Mata MD [address] [place] [address] 12/08/2023 13:35:01 12/08/2023 14:43:07 Lumbar radiculopathy 239297442 M54.16 Arthropath y of lumbar facet joint 193736162 M47.816 Chronic pain syndrome 37 0233821 G89.4 Degenerati on of lumbar intervertebral disc 30410013 M51.369 Inflammati on of sacroiliac joint 29661060 M46.1 Lumbar spondylosis 94665 0009 M47.896 Long-term current use of opiate analgesic drug 2627851118 30588 Z79.891 [id number] Yong Mata MD [address] [place] [address] 01/04/2024 12:50:53 01/04/2024 13:54:18 Lumbar radiculopathy 138772989 M54.16 Arthropath y of lumbar facet joint 480928988 M47.816 Chronic pain syndrome 37 2945213 G89.4 Degenerati on of lumbar intervertebral disc 11785604 M51.369 Inflammati on of sacroiliac joint 03088361 M46.1 Lumbar spondylosis 37440 0009 M47.896 14674 Yong Mata MD [address] [place] [address] 02/02/2024 12:41:08 02/02/2024 15:00:31 Lumbar radiculopathy 569952067 M54.16 Arthropath y of lumbar facet joint 230913086 M47.816 Chronic pain syndrome 37 8808876 G89.4 Degenerati on of lumbar intervertebral disc 09542813 M51.369 Inflammati on of sacroiliac joint 58386849 M46.1 Lumbar spondylosis 01788 0009 M47.896 [id number] Yong Mata MD [address] [place] [address] 03/07/2024 14:30:01 03/07/2024 15:03:31 Lumbar radiculopathy 071372319 M54.16 Lumbar spondylosis 41413 0009 M47.896 Degenerati on of lumbar intervertebral disc 52300659 M51.369 Arthropath y of lumbar facet joint 233101826 M47.816 Long-term drug therapy 966234667 Z79.891 Continuous opioid dependence 921961546 F11.20 28872 TIFFANY CHASE [address] [place] [address] 04/05/2024 13:56:21 04/05/2024 14:40:47 Lumbar radiculopathy 300316981 M54.16 Arthropath y of lumbar facet joint 241472888 M47.816 Chronic pain syndrome 37 2801037 G89.4 Degenerati on of lumbar intervertebral disc 73112212 M51.369 Inflammati on of sacroiliac joint 90177916 M46.1 Continuous opioid dependence 693327203 F11.20 Long-term drug therapy 012280282 Z79.891 Lumbar spondylosis 62496 0009 M47.896 80358 TIFFANY CHASE [address] [place] [address] 05/08/2024 13:35:21 05/08/2024 14:00:55 Lumbar radiculopathy 091007782 M54.16 Continuous opioid dependence 171806469 F11.20 Lumbar spondylosis 76509 0009 M47.896 Degenerati on of lumbar intervertebral disc 87011984 M51.369 [id number] Yong Mata MD [address] [place] [address] 06/14/2024 14:26:45 06/14/2024 15:19:36 Lumbar radiculopathy 582800378 M54.16 Continuous opioid dependence 451469330 F11.20 Lumbar spondylosis 09976 0009 M47.896 Degenerati on of lumbar intervertebral disc 09471928 M51.369 Long-term drug therapy 417413758 Z79.891 Chronic pain syndrome 37 5735243 G89.4 Chronic pain 77949937 G8 9.29 Arthropath y of lumbar facet joint 724007635 M47.816 Inflammati on of sacroiliac joint 92962307 M46.1 Myofascial pain 62828303 9 M79.18 [id number] TIFFANY CHASE [address] [place] [address] 07/12/2024 14:30:09 07/12/2024 15:04:02 Lumbar radiculopathy 640335244 M54.16 Continuous opioid dependence 182484424 F11.20 Lumbar spondylosis 07364 0009 M47.896 Degenerati on of lumbar intervertebral disc 66160273 M51.369 Myofascial pain 84795368 9 M79.18 Polyneuropathy 36629836 G62.9 Health Concerns Section Related Observation LastModified by Organization Detai ls LastModified Time None Recorded Concern Status LastModified by Organization Details LastModified Time None Recorded Advance Directives Directive None Recorded Payers Encounter Date Sequence Insurance Name Policy Number Policy Rhodes Covered Member ID Rhodes Member ID Guarantor Name 03/07/2024 1 [place]ACEMENT [place]IONAL PPO[place] [id number] Luna W Sweet [id number] Luna Sweet 04/05/2024 1 [place] [id number] Luna W Sweet [id number] Luna Sweet 05/08/2024 1 [place] [id number] Luna W Sweet [id number] Luna Sweet 06/14/2024 1 [place] [id number] Luna W Sweet [id number] Luna Sweet 07/12/2024 1 [place] [id number] Luna W Sweet [id number] Luna Sweet Notes Date Note Type Note Provider Name and Address Organization Details Recorded Time 03/07/2024 text/html Follow-up (meds & injections)Reporte d bypatient.Improvem ent:Pain is the same as compared to last visit. Pain Scores:Average pain- 9/10; Current pain- 8/10 Activities of Daily Living (ADL):Living independently.; Able to bathe/groom without assistance.; Able to complete able bodied seaman.; Walking without assistance. Adverse Reactions:No nausea.; No vomiting.; No constipation.; No itching.; No sedation.; No respiratory depression.; No sexual dysfunction. Physical Therapy:Completed course in the past- Recent Injections:Epidura l steroid injection: 80%}}; Pain relief from injections- 80% lasting for ; 05/13/2022 (Thera) ILESI L4/5 85% pain relief JAYY MELGARSALVESTIFFANY [address], [address], [place] [facility] 03/08/2024 10:10:48 04/05/2024 text/html Follow-up (meds & injections)Reporte d bypatient.Improvem ent:Pain is the same as compared to last visit. Pain Scores:Average pain- 9/10; Current pain- 8/10 Activities of Daily Living (ADL):Living independently.; Able to bathe/groom without assistance.; Able to complete able bodied seaman.; Walking without assistance. Adverse Reactions:No nausea.; No vomiting.; No constipation.; No itching.; No sedation.; No respiratory depression.; No sexual dysfunction. Physical Therapy:Completed course in the past- Recent Injections:Epidura l steroid injection: 80%}}; Pain relief from injections- 80% lasting for ; 05/13/2022 (Thera) ILESI L4/5 85% pain relief TIFFANY CHASE [address], [address], [place] [facility] 04/05/2024 16:53:54 05/08/2024 text/html Follow-up (meds & injections)Reporte d bypatient.Improvem ent:Pain is the same as compared to last visit. Pain Scores:Average pain- 9/10; Current pain- 8/10 Activities of Daily Living (ADL):Living independently.; Able to bathe/groom without assistance.; Able to complete able bodied seaman.; Walking without assistance. Adverse Reactions:No nausea.; No vomiting.; No constipation.; No itching.; No sedation.; No respiratory depression.; No sexual dysfunction. Physical Therapy:Completed course in the past- Recent Injections:Epidura l steroid injection: 80%}}; Pain relief from injections- 80% lasting for ; 05/13/2022 (Thera) ILESI L4/5 85% pain relief JAYY MELGARSALVES PA [address], [address], [place] [facility] 05/09/2024 09:10:31 06/14/2024 text/html Follow-up (meds & injections)Reporte d bypatient.Improvem ent:Pain is the same as compared to last visit. Pain Scores:Average pain- 7/10; Current pain- 8/10 Activities of Daily Living (ADL):Living independently.; Able to bathe/groom without assistance.; Able to complete able bodied seaman.; Walking without assistance. Adverse Reactions:No nausea.; No vomiting.; No constipation.; No itching.; No sedation.; No respiratory depression.; No sexual dysfunction. Physical Therapy:Completed course in the past- Recent Injections:Epidura l steroid injection: 80%}}; Pain relief from injections- 80% lasting for ; 05/13/2022 (Thera) ILESI L4/5 85% pain relief JAYY SALDAÑAVESTIFFANY [address], [address], [place] [facility] 06/15/2024 08:56:41 07/12/2024 text/html Follow-up (meds & injections)Reporte d bypatient.Improvem ent:Pain is the same as compared to last visit. Pain Scores:Average pain- 7/10; Current pain- 8/10 Activities of Daily Living (ADL):Living independently.; Able to bathe/groom without assistance.; Able to complete able bodied seaman.; Walking without assistance. Adverse Reactions:No nausea.; No vomiting.; No constipation.; No itching.; No sedation.; No respiratory depression.; No sexual dysfunction. Physical Therapy:Completed course in the past- Recent Injections:Epidura l steroid injection: 80%}}; Pain relief from injections- 80% lasting for ; 05/13/2022 (Thera) ILESI L4/5 85% pain relief JAYY SERGTIFFANY [address], [address], [place] [facility] 07/13/2024 10:33:03 OBGyn Episode No OBEpisode recorded.
[2024-07-16] MEDS: ROMOSOZUMAB AQQG 210 MG/2.34 ML SUBCUT (15:03)
[2024-07-16 15:06] VITALS: BP 93/58; PULSE 68; RESP 18; O2SAT 98
== END 2024-07-16 15:06 | disposition home or self-care (01) ==
LOC: INF 14:57
PROVIDERS: PCP Nurse Practitioner Family; Visit Provider Internal Medicine
DX: M81.0 Age-related osteoporosis without current pathological fracture (principal)
CPT/HCPCS: 96372; J3111

== ENCOUNTER 2024-07-17 13:00 | Outpatient (RCR) | payer MEDICARE, MEDICAID, SELFPAY | END 2024-07-17 23:59 | disposition home or self-care (01) | LOC: PT 13:00 | PROVIDERS: PCP Nurse Practitioner Family; Visit Provider Orthopaedic Surgery Orthopaedic Surgery of the Spine | DX: M43.26 Fusion of spine, lumbar region (principal) | CPT/HCPCS: 97110 ==

== ENCOUNTER 2024-08-21 09:00 | Outpatient (RCR) | payer MEDICARE, MEDICAID, SELFPAY | END 2024-08-21 23:59 | disposition home or self-care (01) | LOC: PT.CARL 09:00 | PROVIDERS: PCP Nurse Practitioner Family; Visit Provider Orthopaedic Surgery Orthopaedic Surgery of the Spine | DX: M43.26 Fusion of spine, lumbar region (principal) | CPT/HCPCS: 97110; 97530 ==

== ENCOUNTER 2024-08-28 10:00 | Outpatient (RCR) | payer MEDICARE, MEDICAID, SELFPAY | END 2024-08-28 23:59 | disposition home or self-care (01) | LOC: PT.CARL 10:00 | PROVIDERS: PCP Nurse Practitioner Family; Visit Provider Orthopaedic Surgery Orthopaedic Surgery of the Spine | DX: M43.26 Fusion of spine, lumbar region (principal) | CPT/HCPCS: 97110 ==

== ENCOUNTER 2024-09-21 12:59 | Outpatient (CLI) | payer MEDICARE, MEDICAID, SELFPAY ==
--- OUTSIDE RECORDS SUMMARY | 2024-08-14 12:46 | XMS_ITS | Encounter Summary ---
Author Organization [facility] Address [address] [place] [address] Care Team Providers Care Appliance Assembler Name Role Phone Naya Goodwin APRN Primary Care Provider [phone] Chelsey Mascorro Unavailable Yong Mata MD Unavailable Malena Burton APRN Unavailable [phone] Encounter Details Date Type Department Care Team (Latest Contact Info) Description 08/14/2024 12:46 PM EDT - 08/14/2024 11:59 PM EDT Hospital Encounter [facility] [address], [address] [place] [address] Age-related osteoporosis without current pathological fracture Discharge Disposition: Home or Self Care Social History Tobacco Use Types Packs/Day Years Used Date Smoking Tobacco: Former Cigarettes 1 35 0 04/1985 - 04/2020 Passive Smoke Exposure: Past Smokeless Tobacco: Never Alcohol Use Standard Drinks/Week Comments No 0 (1 standard drink = 0.6 oz pur e alcohol) PHQ-2 Answer Date Recorded Patient Health Questionnaire-2 Score 0 06/20/2024 PHQ-9 Answer Date Recorded Patient Health Questionnaire-9 Score 0 06/20/2024 PHQ-2A Answer Date Recorded Depression Risk 0 01/25/2024 Comments No Sex and Gender Information Value Date Recorded Sex Assigned at Female 03/05/2022 11:33 AM EST Legal Sex Female 7:47 PM EDT Gender Identity Female 03/05/2022 11:33 AM EST Sexual Orientation Not on file documented as of this encounter Medications at Time of Discharge acetaminophen (Tylenol) 500 MG tablet Take 2 tablets (1,000 mg) by mouth every 8 hours. 100 tablet 1 04/24/2024 busPIRone (Buspar) 10 MG tablet Take 1 tablet (10 mg) by mouth 4 (four) times a day. 12/22/2020 calcitriol (Rocaltrol) 0.25 MCG capsuleIndications: Secondary hyperparathyroidism , non-renal (CMS/HCC) Take 1 capsule (0.25 mcg) by mouth 1 (one) time each day. 30 capsule 5 01/25/2024 calcium carbonate (Tums) 500 MG chewable tabletIndications:O steoporosis without current pathological fracture, unspecified osteoporosis type Chew 1 tablet (500 mg) 3 (three) times a day with meals. 90 tablet 3 07/07/2023 cholecalciferol 25 MCG (1000 UT) tabletIndications:A ge-related osteoporosis without current pathological fracture Take 1 tablet by mouth daily. 30 tablet 11 08/14/2024 clobetasol (Temovate) 0.05 % cream Apply topically twice weekly. 30 g 06/20/2024 Docusate Sodium (DSS) 100 MG capsule Take 100 mg by mouth in the morning and 100 mg before bedtime. 28 capsule 05/08/2024 escitalopram (Lexapro) 20 MG tablet Take 1 tablet by mouth daily. fluticasone (Flonase) 50 MCG/ACT nasal spray Administer 1 spray into each nostril daily. 11/29/2020 gabapentin (Neurontin) 300 MG capsule Take 1 capsule (300 mg) by mouth 3 (three) times a day. lidocaine (Lidoderm) 5 % patch APPLY 1 PATCH BY TOPICAL ROUTE ONCE DAILY (MAY WEAR UP TO 12HOURS.) 08/02/2024 LORazepam (Ativan) 1 MG tablet Take 2 tablets (2 mg) by mouth nightly. methocarbamol (Robaxin) 500 MG tablet START BY TAKING 1 PILL BY MOUTH EVERY NIGHT. SLOWLY INCREASE TO 1 PILL 2X/DAY NEEDED, WITH A MAXIMUM OF 2 PILLS 3X/DAY. 180 tablet 10 08/13/2024 Misc. Devices (Sitz Bath) misc 1 kit 1 (one) time per week. 3 each 04/15/2023 naloxone (Narcan) 4 mg/0.1 mL nasal spray 1. Give 1 spray in nostril for no/slow breathing or cannot wake after opioid use 2. Call 911 3. Repeat in other nostril if symptoms continue 1 each 04/24/2024 nystatin (Mycostatin) creamIndications:Va ginal itching,Yeast infection of the vagina Apply to effected area twice daily or as needed to help with itching. 30 g 1 02/28/2024 ondansetron ODT (Zofran-ODT) 4 MG disintegrating tablet Take 1 tablet (4 mg) by mouth every 6 hours as needed for nausea or vomiting. 20 tablet 04/24/2024 oxyCODONE (Roxicodone) 5 MG immediate release tablet Take 1 tablet (5 mg) by mouth every 6 hours as needed for moderate pain. 20 tablet 04/24/2024 pantoprazole (Protonix) 40 MG EC tablet Take 1 tablet (40 mg) by mouth daily before breakfast. 01/07/2021 promethazine (Phenergan) 12.5 MG tablet Take 1 tablet (12.5 mg) by mouth every 8 hours as needed for nausea. 09/14/2023 Retin-A 0.05 % cream APPLY TO THE AFFECTED AREA(S) BY TOPICAL ROUTE ONCE DAILY AT BEDTIME 07/02/2024 documented as of this encounter Plan of Treatment Upcoming Encounters Date Type Department Care Team (Late st Contact Info) Description 09/26/2024 8:00 AM EDT Office Visit [facility] [address] [place] [address] Nevaeh Harrison, [employer] SALES MANAGER [address] [facility] [address] [place] [address] 10/18/2024 10:20 AM EDT Office Visit [facility] [address] [place] [id number] Malena Burton, [employer] SALES MANAGER [address] [place] [address] 12/25/2024 2:30 PM EDT Office Visit [facility] [address] [place] [address] Christy Nevaeh S, [employer] SALES MANAGER [address] [facility] [address] [place] [address] 03/06/2025 1:00 PM EST Clinical Support [facility] [address] [place] [address] 03/20/2025 11:20 AM EST Evaluation [facility] [address], [address] [place] [address] Neil Saldana, PharmD [address] [place] [address] 04/25/2025 1:30 PM EST Office Visit [facility] [address], [address] [place] [address] Arnav Ibarra MD [address] [facility] [address] [place] [address] documented as of this encounter Procedures Procedure Name Priority Date/Time Associated Diagnosis Comments DEXA BONE DENSITY Routine 08/14/2024 12: 46 PM EDT Age-related osteoporosis without current pathological fracture documented in this encounter Results * Dexa Bone Density (08/14/2024 12:46 PM EDT) Anatomical Region Laterality Modality L-spine Radiographic Mitra ging Narrative 08/18/2024 9:02 PM EDT [facility] [address], [place] [address] DXA Bone Densitometry Report: [08/14/2024] BMD test performed using the Lunar iDXA DXA System (analysis version: 14.10) manufactured by [employer]. REFERRING PROVIDER: Dr. Sana Strong MD CLINICAL INFORMATION: osteoporosis PATIENT NAME: Luna Foreman PATIENT AGE: 63 y.o. LEGAL SEX: female RADIOGRAPHIC VIEWS: Sites scanned: AP Spine, HIP Right , HIP Left, and TBS COMPARISON STUDY: DXA Axial Prior studies are not available for comparison and TBS Prior studies are not available for comparison FINDINGS: Based on WHO criteria (post-menopausal female) the diagnosis is Osteoporosis The lowest T- score is -2.9 in the LFN The presence of arthritic or degenerative joint changes in the spine could artefactually increase measured BMD. TBS: The TBS L1-3 of 1.305 indicates normal microarchitecture Spinal fusion hardware is present across L4-5 vertebrae; spinal cord stimulator noted TREATMENT RECOMMENDATIONS: Measured bone density crosses threshold for treatment of osteoporosis Specific anti-osteoporotic therapy remains indicated given high risk of future fracture Patient has received specific treatment for osteoporosis in the last year. Work up for secondary osteoporosis and metabolic bone disease could be considered based on clinical indications. Treatment decisions may be based on clinical considerations. Suggest general measures to optimize calcium and vitamin D status, fall prevention measures and reduce fracture risk. Consider repeating this study in 1 year(s) or as clinically indicated to assess bone density change or response to treatment (should be performed on the same DXA scanner to allow for direct comparison and calculation of change in BMD). Sana Strong MD IMG DXA PROCEDURES Final Resul t documented in this encounter Visit Diagnoses Diagnosis Age-related osteoporosis without current pathological fracture documented in this encounter Additional Health Concerns Assessment Noted Time PHQ-9 Depression Total Score: 0 06/21/19 25 2:21 PM EDT A fall risk assessment has been complete d for the patient 08/14/2024 1:54 PM EDT A Body Mass Index follow-up plan has been documented for the patient 08/14/2024 2:19 PM EDT documented as of this encounter Care Teams Appliance Assembler Relationship Specialty Start Date End Date Naya Goodwin APRN [address] [place] [address] PCP - General 07/11/20 Chelsey Mascorro [address] [place] [address] [place] [address] Referring Physician Gynecology 01/19/21 Yong Mata MD [facility] [address] [place] [id number] Surgeon Pain Medicine 05/12/21 Malena Burton APRN [address] [address] Nurse Practitioner Urology 06/09/23 documented as of this encounter
--- OUTSIDE RECORDS SUMMARY | 2024-08-14 14:00 | XMS_ITS | Encounter Summary ---
Author Organization [facility] Address [address] [place] [address] Care Team Providers Care Artificial Flowers Starcher Name Role Phone Naya Goodwin APRN Primary Care Provider [phone] Chelsey Mascorro Unavailable Yong Mata MD Unavailable Malena Burotn APRN Unavailable [phone] Reason for Referral * Consultation (Routine) - Authorized Specialty Diagnoses / Procedures Referred By Contac t Referred To Contact Diagnoses Age-related osteoporosis without current pathological fracture Sana Strong MD [address] [place] [id number] Phone: tel: fax: Referral ID Status Reason Start Date Expiration Date V isits Requested Visits Authorized [id number] Authorized 08/14/2024 02/13/2026 1 1 Reason for Visit * Reason Comments Follow-up Encounter Details Date Type Department Care Team (Late st Contact Info) Description 08/14/2024 2:00 PM EDT Office Visit [facility] [address] [place] [address] Sana Strong MD [address] [place] [address] Age-related osteoporosis without current pathological fracture (Primary Dx); Lumbar spondylosis; Spondylolisthesis at L4-L5 level; Secondary hyperparathyroidism, non-renal (CMS/HCC); Chronic obstructive pulmonary disease, unspecified COPD type (CMS/HCC); Gastroesophageal reflux disease with esophagitis without hemorrhage; Lumbar stenosis with neurogenic claudication Social History Tobacco Use Types Packs/Day Years Used Date Smoking Tobacco: Former Cigarettes 1 35 0 04/1985 - 04/2020 Passive Smoke Exposure: Past Smokeless Tobacco: Never Tobacco Cessation:Counseling Given: Not Answered Alcohol Use Standard Drinks/Week Comments No 0 [...] on file documented as of this encounter Last Filed Vital Signs Vital Sign Reading Time Taken Comments Blood Pressure 113/77 08/14/2024 1:48 PM EDT Pulse 72 08/14/2024 1:48 PM EDT Temperature 36.6 C (97.8 F) 08/14/2024 1:48 PM EDT Respiratory Rate - - Oxygen Saturation 97% 08/14/2024 1:48 PM EDT Inhaled Oxygen Concentration - - Weight 57.5 kg (126 lb 12.2 oz) 08/14/2024 1:48 PM EDT Height 159 cm (5' 2.6 ) 08/14/2024 1:48 PM EDT Body Mass Index 22.74 08/14/2024 1:48 PM EDT documented in this encounter Miscellaneous Notes * Progress Notes - Sana Strong MD - 08/14/2024 2:00 PM EDT Subjective Patient ID: Luna Foreman is a 63 y.o. female referred by Dr. Ibarra for consultation for osteoporosis. Patient is presenting for a follow-up visit today after starting bone anabolic rx with romosozumab/Evenity for monitoring of AEs and progress Rae started - July 2023; c/o local tenderness and aches lasting a few hrs - completed a year DXA showing improvement although diff machine Also has secondry hyperpth from malabsorption - takes calcitriol - 0.25 daily; tums 500 tid, vit D25 - 2000 daily She is currently vit D replete Serum ca borderline low (also cd be related to evenity) and she was encouraged compliance with Ca Underwent spinal fusion for L 4-[address] Ibarra Mar 2024 - doing better since Plan transition to prolia - labs stabe bone turnover markers trend See back in [facility] with labs 6 months after prolia Dt: Jul 2024 DXA: Lunar T scores LS: -0.8 LFN: -2.9 LTH: -2.3 RFN: -2.8 RTH: -2.4 TBS L1-3 of 1.305 indicates normal microarchitecture DXA 05/10/2023: L1-L4: 0.7, LFN: -3.2 She was seen by Juany Schwartz in bone clinic 05/24/23. Since that time, she was seen by general surgery and urology (recurrent UTIs). She continues to have a lot of stomach issues (IBS with constipation/diarrhea), and continues to take daily miralax and citropro (up to twice daily). She continues to have a modified diet because of stomach sensitivities and doesn't intake much protein. . She started calcium and vitamin d supplementation on 06/09/23 after seeing Valerie Stark in general surgery. She denies any falls since last seen in clinic. Interim history: Patient continues to take vitamin-D 2000 units daily along with calcium tablets daily. She is also taking the calcitriol which was started during the last visit. She takes Tums 3 times a day. Patient was started on Evenity and she has received 11 shots so far. Had surgery for the back in 03/2024. Last shot was . History was reviewed as below, and see added that she has a history of epidural steroid shots for back pain for several years until Fall 2022. Other PMHx includes recurrent UTIs, vulvar cancer, chronic back pain, GERD, anxiety and depression.Pt continues to have low back pain, previously had neurostimulator. Possibly will require lumbar fusion L4-L5 and recent w/up showed osteoporosis on DXA scan. Pt had DXA 05/10/2023 with T scores L1-L4: 0.7, LFN: -3.2. Previous DXA many years ago. Fracture history: coccyx fx in age 20's, nose fx in her 30's. Previous treatment: Naive to treatment therapy. Not taking calcium or Vit D. 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 Denies height loss that she is aware of. Continues to have chronic back pain which radiates in her L leg all the way down to her ankle. Had spinal stimulator placed ~5 years ago. No hx of radiation treatment No OH or CVA Exercise is minimal due to her back pain. She can barely clean the house. Pain is improved with rest. No hx of kidney stones. No family hx of osteoporosis Dental health - has upper dentures/partials. Diet - no dairy due to intolerance Long hx of smoking but has not smoked in ~3 years. Constitutional: Negative. No fever, fatigue, 12lb weight loss since Feb 2023 Cardiovascular: Negative. No chest pain or discomfort, denies palpitations. Respiratory: Negative. No shortness of breath at rest, cough, hemoptysis. Gastrointestinal: Hx of GERD, no issues at this time. Musculoskeletal: chronic back pain with radiation. Physical Exam: Constitutional: No acute distress. Well-developed and nourished. Body mass index is 22.74 kg/m??. Pulmonary: Normal effort of breathing; CTAB Cardiovascular: RRR w/o M/R/G. No peripheral edema present Musculoskeletal: Normal range of motion. Psychiatric: Orientated to person, place, and time: Normal Mood and affect LAB RESULTS Renal Panel: Lab Results Component Value Date GLUCOSE 93 08/14/2024 NA 143 08/14/2024 K 3.9 08/14/2024 CL 105 08/14/2024 CO2 29 08/14/2024 BUN 10 08/14/2024 CREATININE 0.95 08/14/2024 CREATININE 0.89 04/24/2024 CREATININE 0.84 04/05/2024 CREATININE 0.74 12/27/2023 EGFR 68.3 08/14/2024 CYSTATIN 0.97 07/06/2023 CALCIUM 9.4 08/14/2024 PHOS 3.7 08/14/2024 ALBUMIN 4.3 08/14/2024 MBD: Lab Results Component Value Date PTH 112 (H) 08/14/2024 PTH 91 (H) 08/05/2023 PTH 120 (H) 06/01/2023 PTH 122 (H) 05/24/2023 CALCIUM 9.4 08/14/2024 CALCIUM 8.6 (L) 04/24/2024 CALCIUM 8.7 (L) 04/05/2024 CALCIUM 8.3 (L) 12/27/2023 ICAS 5.1 08/14/2024 ICAS 5.1 08/05/2023 ICAS 5.1 06/01/2023 ICAS 5.1 05/24/2023 PHOS 3.7 08/14/2024 PHOS 2.9 10/12/2023 PHOS 2.7 09/15/2023 PHOS 2.5 08/05/2023 MG 2.0 05/19/2023 MG 1.9 03/20/2020 ALBUMIN 4.3 08/14/2024 ALBUMIN 4.0 11/02/2023 ALBUMIN 4.1 10/12/2023 ALBUMIN 4.3 09/15/2023 ALKPHOS 129 08/14/2024 ALKPHOS 101 11/02/2023 ALKPHOS 91 08/05/2023 ALKPHOS 88 06/01/2023 Nutritional: Lab Results Component Value Date PREALBUMIN 21.7 04/05/2024 Urine studies: Lab Results Component Value Date CALCIUMUR 3.4 08/14/2024 CREATUR 177 08/14/2024 CBC: Lab Results Component Value Date WBC 13.98 (H) 04/24/2024 RBC 3.36 (L) 04/24/2024 HGB 11.1 (L) 04/24/2024 HCT 33.5 (L) 04/24/2024 PLT 188 04/24/2024 MCV 100 (H) 04/24/2024 MCH 33.0 (H) 04/24/2024 MCHC 33.1 04/24/2024 RDW 12.5 04/24/2024 NRBC 0.0 04/24/2024 Iron studies: Lab Results Component Value Date FERRITIN 3,615 (H) 08/10/2021 Bone Turnover Markers: Lab Results Component Value Date BSAP 26.3 08/14/2024 BSAP 19.3 08/05/2023 BSAP 25.5 05/19/2023 CTELOX 519 08/14/2024 CTELOX 180 10/12/2023 CTELOX 249 05/19/2023 NTELOPEPTS 23.0 08/14/2024 NTELOPEPTS 11.2 05/19/2023 OSTEOCALCIN 47 (H) 08/14/2024 OSTEOCALCIN 51 (H) 10/12/2023 OSTEOCALCIN 39 (H) 05/19/2023 VITAMIN D 25 Lab Results Component Value Date VITD25 41.8 08/14/2024 VITD25 34.5 05/19/2023 VITAMIN D 1,25 Lab Results Component Value Date 25HYDRDT 64.8 05/24/2023 Paraproteinemia Labs: Lab Results Component Value Date PATHINTERP 05/19/2023 The total protein and serum protein electrophoretic fractions are within normal limits. KAPPALAMBDA 1.30 05/19/2023 Endocrine profile: Lab Results Component Value Date TSH 1.19 01/05/2023 C0QUJPK 117 05/19/2023 FREET4 1.3 01/05/2023 Assessment/Plan Pt is 62 yo female referred by Dr. Ibarra for consultation for osteoporosis. She was seen by Juany Schwartz in bone clinic 05/24/23, and referred for further work-up of elevated PTH and osteoporosis.Other PMHx includes recurrent UTIs, vulvar cancer, chronic back pain, GERD, anxiety and depression. Osteoporosis - DXA 05/10/2023: L1-L4: 0.7, LFN: -3.2 - Risk factors for OP include age, menopause, smoking hx, nutrition, chronic steroid injection use x years, into Fall 2022. - patient underwent spinal fusion in 03/2024 Labs 05/22 C telopeptide: 981 Osteocalcin: 44.8 (elevated) Continue with calcitriol, calcium and vitamin-D supplements as advised. 2. Hyperparathyroidism, concern for secondary - Given persistently normal Ca, with elevated PTH; concern for secondary HPT - Was referred to endorine surgery given elevated PTH, however surgery was deferred - patient currently on calcium, vitamin-D and calcitriol supplements. She also takes Tums three times a day. Intact PTH: 164 Calcium normal We will continue to monitor Continue evenity as above 3. Possible GI dis - ?? Malabsorption - req GI referral - but need not hold up anabolic rx if PTH axis tending to correction She was started on evenity in 07/2023, has completed a year - transition to prolia. We will start her on prolia; she has no active infection at present and no planned dental work. The schedule of administration, monitoring and side effects of Prolia were discussed. Prolia will be given by subcutaneous injection under supervision at the infusion center. The appropriate intervalbetween doses will be determined by monitoring markers, but it is usually administered every 6-12 months. She was advised to continue to take calcium and vitamin D supplements as instructed. She will need additional follow up blood tests 2 weeks after receiving the medication. Side effects of Prolia are increased risk of infections, low blood calcium, allergic reactions, mouth sores, bone, joint or muscle pain, bruising, jawbone problems, rarely pancreatitis, osteonecrosis of the jaw, atypical femur fracture, dermatitis and immunosuppression. She should contact us immediately in the event of any side effects or intolerance. See back 6 mths in [facility] after prolia shot. Continue calcitriol, vit D and Ca for secondary hyperpth Problem List Items Addressed This Visit Nervous Lumbar stenosis with neurogenic claudication Respiratory Chronic obstructive lung disease ([facility]) Overview Problem Code: 496; Problem Code Type: ICD-9; Digestive Gastro-esophageal reflux disease with esophagitis Overview Problem Code: K21.0; Problem Code Type: ICD-10; Musculoskeletal Age-related osteoporosis without current pathological fracture - Primary Relevant Medications cholecalciferol 25 MCG (1000 UT) tablet Other Relevant Orders Vitamin D 25 Hydroxy C-Telopeptide Renal Function Panel, Plasma Bone Specific Alkaline Phosphatase Osteocalcin by ECIA Follow Up Bone Mineral Metabolism Lumbar spondylosis Spondylolisthesis at L4-L5 level Endocrine/Metabolic Secondary hyperparathyroidism, non-renal (CMS/[facility]) MDM: - was based on the following: Labs reviewed renal panel, vit D, bone turnover markers Past imaging reviewed Old chart reviewed Imaging directly visualized and personally interpreted DXA scan Comorbidities complicating the care of the patient Gr 4-5 spondylolisthesis, secondary hyperpth, ? malabsorption. identified SDOH that significantly limit treatment Tobacco use and Distance traveled for medical care Medication monitoring for drug toxicity romosozumab (Evenity) Orders Placed This Encounter Procedures Vitamin D 25 Hydroxy Standing Status: Future Expected Date: 02/18/2025 Expiration Date: 02/15/2026 [facility]: Immediate [1] C-Telopeptide Standing Status: Future Expected Date: 02/18/2025 Expiration Date: 02/15/2026 [facility]: Immediate [1] Renal Function Panel, Plasma Standing Status: Future Expected Date: 02/18/2025 Expiration Date: 02/15/2026 Release to patient in MyChart: Immediate [1] Bone Specific Alkaline Phosphatase Standing Status: Future Expected Date: 02/18/2025 Expiration Date: 02/15/2026 [facility]: Immediate Osteocalcin by ECIA Standing Status: Future Expected Date: 02/18/2025 Expiration Date: 02/15/2026 [facility] to [facility]: Immediate [1] Follow Up Bone Mineral Metabolism Neil or follow with any provider - gianna/giovanni Standing Status: Future Expected Date: 03/11/2025 Expiration Date: 09/13/2025 Referral Priority: Routine Referral Type: Consultation Number of Visits Requested: 1 Sana Strong MD [facility] documented in this encounter Plan of Treatment Upcoming Encounters Date Type Department Care Team (Late st Contact Info) Description 09/26/2024 8:00 AM EDT Office Visit [facility] [address] [place] [address] Nevaeh Harrison, COMMUNITY ARTIST [address] [facility] [address] [place] [address] 10/18/2024 10:20 AM EDT Office Visit [place] [facility] [address] [place] [id number] Malena Burton, COMMUNITY ARTIST [address] [place] [address] 12/25/2024 2:30 PM EDT Office Visit [facility] [address] [place] [address] Nevaeh aHrrison S, COMMUNITY ARTIST [address] [facility] [address] [place] [address] 03/06/2025 1:00 PM EST Clinical Support [facility] [address] [facility] [place] [address] 03/20/2025 11:20 AM EST Evaluation [facility] [address], [address] [place] [address] Neil Saldana, PharmD [address] [facility] [address] [place] [address] 04/25/2025 1:30 PM EST Office Visit [facility] [address] [facility], [address] [place] [address] Arnav Ibarra MD [address] [facility] [address] [place] [address] Scheduled Orders Name Type Priority Associated Diagnoses Orde r Schedule Vitamin D 25 Hydroxy Lab Routine Age-related osteoporosis without current pathological fracture Expected: 02/18/2025 (Approximate), Expires: 02/15/2026 C-Telopeptide Lab Routine Age-related osteoporosis without current pathological fracture Expected: 02/18/2025 (Approximate), Expires: 02/15/2026 Renal Function Panel, Plasma Lab Routine Age-related osteoporosis without current pathological fracture Expected: 02/18/2025 (Approximate), Expires: 02/15/2026 Bone Specific Alkaline Phosphatase Lab Routine Age-related osteoporosis without current pathological fracture Expected: 02/18/2025 (Approximate), Expires: 02/15/2026 Osteocalcin by ECIA Lab Routine Age-related osteoporosis without current pathological fracture Expected: 02/18/2025 (Approximate), Expires: 02/15/2026 Scheduled Referrals Name Type Priority Associated Diagnoses Orde r Schedule Follow Up Bone Mineral Metabolism Outpatient Referral Routine Age-related osteoporosis without current pathological fracture Expected: 03/11/2025, Expires: 09/13/2025 documented as of this encounter Visit Diagnoses Diagnosis Age-related osteoporosis without current pathological fracture- Primary Lumbar spondylosis Lumbosacral spondylosis without myelopathy Spondylolisthesis at L4-L5 level Secondary hyperparathyroidism, non-renal (CMS/HCC) Secondary hyperparathyroidism, non-renal Chronic obstructive pulmonary disease, unspecified COPD type (CMS/HCC) Gastroesophageal reflux disease with esophagitis without hemorrhage Lumbar stenosis with neurogenic claudication documented in this encounter Additional Health Concerns Assessment Noted Time PHQ-9 Depression Total Score: 0 06/21/19 25 2:21 PM EDT A fall risk assessment has been complete d for the patient 08/14/2024 1:54 PM EDT A Body Mass Index follow-up plan has been documented for the patient 08/14/2024 2:19 PM EDT documented as of this encounter Care Teams Artificial Flowers Starcher Relationship Specialty Start Date End Date Naya Goodwin APRN [address] [place] [id number] PCP - General 07/11/20 Chelsey Mascorro [address] [place] [address] [place] [address] Referring Physician Gynecology 01/19/21 Yong Mata MD [facility] [address] [place] [address] Surgeon Pain Medicine 05/12/21 Malena Burton APRN [address] [facility] [place] [phone] Nurse Practitioner Urology 06/09/23 documented as of this encounter
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
--- OUTSIDE RECORDS SUMMARY | 2024-09-21 13:02 | XMS_ITS | Encounter Summary ---
Author Organization [facility] Address [address] [place] [address] Care Team Providers Care Rv Service Technician Name Role Phone Naya Goodwin RENDERER Primary Care Provider [phone] Chelsey Mascorro Unavailable Yong Mata MD Unavailable Malena Burton APRN Unavailable [phone] Encounter Details Date Type Department Care Team (Late st Contact Info) Description 08/06/2024 Telephone [facility] Bone & Mineral Metabolism [address] [facility] [address] [facility] [address] [facility] [place] [address] Betsy Soares Social History Tobacco Use Types Packs/Day Years [...] on file documented as of this encounter Miscellaneous Notes * Telephone Encounter - Betsy Soares - 08/06/2024 9:07 AM EDT Called patient to reschedule no showed lab appointment and confirm dexa and office visit with us for up coming appointment. Patient did not answer, I left a voicemail and call back number. documented in this encounter Plan of Treatment Upcoming Encounters Date Type Department Care Team (Late st Contact Info) Description 09/26/2024 8:00 AM EDT Office Visit [facility] Gynecology [address] [place] [address] Nevaeh Harrison S, RENDERER [address] [facility] [address] [place] [address] 10/18/2024 10:20 AM EDT Office Visit [facility] Urology [address] [place] [address] Malena Burton, RENDERER [address] [place] [address] 12/25/2024 2:30 PM EDT Office Visit [facility] Gynecology [address] [place] [address] Nevaeh Harrison S, RENDERER [address] [facility] [address] [place] [address] 03/06/2025 1:00 PM EST Clinical Support [facility] Laboratory Services [address] [facility] 1[address] [place] [address] 03/20/2025 11:20 AM EST Evaluation [facility] Bone & Mineral Metabolism [address] [facility], [address] [place] [address] Neil Saldana, PharmD [address] [facility] [address] [place] [address] 04/25/2025 1:30 PM EST Office Visit Medical Office Building Surgery Spine & Joint [address] [facility], [address] [place] [address] Arnav Ibarra MD [address] [place] [address] documented as of this encounter Visit Diagnoses Not on filedocumented in this encounter Additional Health Concerns Assessment Noted Time PHQ-9 Depression Total Score: 0 06/21/19 25 2:21 PM EDT A fall risk assessment has been complete d for the patient 06/20/2024 2:21 PM EDT A Body Mass Index follow-up plan has been documented for the patient 06/26/2024 11:51 PM EDT documented as of this encounter Care Teams Rv Service Technician Relationship Specialty Start Date End Date Naya Goodwin APRN [address] [place], [place] [id number] PCP - General 07/11/20 Chelsey Mascorro [address] [place] [address] [place] [address] Referring Physician Gynecology 01/19/21 Yong Mata MD [id number] [place], [place] [id number] Surgeon Pain Medicine 05/12/21 Malena Burton APRN [address] [place] [address] Nurse Practitioner Urology 06/09/23 documented as of this encounter
--- OUTSIDE RECORDS SUMMARY | 2024-09-21 13:02 | XMS_ITS | Continuity of Care Document ---
Author Organization [facility] [place] [facility] New Address [address] [place] [address] Care Team Providers Care Rolled Gold Plater Name Role Phone DARREN GUTIERREZ Primary Care Provider DARREN GUTIERREZ Referring Provider [phone] Assessment Encounter Date Assessment Date Assessment LastModified by Organization Details LastModified Time 08/02/2024 08/02/2024 This patient is recovering from her lumbar fusion which she had in April. We are continuing her gabapentin 300 mg 3 times a day, Percocet 7.5 mg 3 times a day, lidocaine patches. She is not due for these refills until the middle of the month. Today she did have bilateral lumbar RFA L4-L5. We did concentrate above her fusion. She is seeing Dr. Ibarra in the next couple weeks for follow-up of her surgery. We will see her back in 1 month we will assess efficacy of this lumbar RFA and follow-up on his notes. abux Not available 08/02/2024 17:47:17 Plan of Treatment Reminders Order Date Submit Date Provider Last Modified By Organization Details Last Modified Time Details Appointments Follow Up 2024 02:40P Alina Mata MD Not available Not available Not available Lab None recorded. Referral None recorded. Procedures None recorded. Surgeries None recorded. Imaging None recorded. Medication Orders lidocaine 5 % topical patch 2024 025 [facility], [address] [place], [address], 08/02/2024 17:49:51 gabapenti n 300 mg capsule 2024 025 [facility], [address] [place], [address], 08/13/2024 14:50:33 oxycodone -acetamin ophen 7.5 mg-325 mg tablet 2024 [facility], [address] [place], [address], 08/13/2024 14:50:33 Patient TargetsNo targets recorded. Patient InstructionsNo instructions recorded. Reason for Referral None Reported. Problems Name Problem SNOMED Code Status Onset Date Resolution Date Notes Provider Name and Address Organization Details Recorded Time Degeneratio n of lumbar interverteb ral disc 28144626 Active 2021 Yong Mata MD [address], [address], [place] [facility] 2 14:44:06 Lumbar radiculopat hy 997727354 Active 2021 Yong Mata MD [address], [address], [place] [facility] 2 14:44:07 Inflammatio n of sacroiliac joint 57652329 Active 2022 Yong Mata MD [address], [address], [place] [facility] 3 18:31:00 Chronic pain syndrome 162854568 Active 2023 Ilana Bagley NP [address] [facility],[address], [address], [place] [facility] 4 12:23:47 Lumbar spondylosis 949857483 Active 2023 Yong Mata MD [address], [address], [place] [facility] 4 14:41:57 Arthropathy of lumbar facet joint 130790921 Active 2023 Yong Mata MD [address] [facility],[address], [address], [place] [facility] 4 14:41:58 Long-term drug therapy Active 2024 TIFFANY CHASE [address],[place] [facility], [place], [address], [place] [facility] 10:10:41 Continuous opioid dependence 537581636 Active 2024 TIFFANY CHASE [address], [place], [address], [place] [facility] 10:10:42 History of lumbar fusion 6080705766471 6 Active 2024 Yong Mata MD [address], [place], [address], [place] [facility] 17:47:32 Problem Notes None recorded. Procedures Surgical History Date Name Laterality Status Provider Name and Address Organization Details Recorded Time 08/03/19 25 BILAT 1 level LUMBAR RFA completed Yong Mata MD [address],[place] [address] [place] [address], [address], [place] [facility] 08/02/2024 17:46:07 11/10/19 24 BILAT 1 level LUMBAR RFA completed Yong Mata MD [address],[place] [address] [place] [address], [address], [place] [facility] 11/10/2023 14:55:16 09/15/19 24 Diagnostic Lumbar MBB: 1 Level Bilateral completed Yong Mata MD [address],[place] [address] [place] [address], [address], [place] [facility] 09/15/2023 16:58:24 07/14/19 24 Diagnostic Lumbar MBB: 1 Level Bilateral completed Yong Mata MD [address],[place] [address] [place] [address], [address], [place] [facility] 07/14/2023 14:39:57 12/16/19 23 Diagnostic SI Joint Injection Under Fluoroscopy completed Yong Mata MD [address], [place], [address], [place] [facility] 12/15/2022 10:33:10 11/05/19 23 Diagnostic SI Joint Injection Under Fluoroscopy completed Yong Mata MD [address], [address], [place] [facility] 11/04/2022 17:01:56 10/09/19 23 Lumbar JULIAN: Interlaminar completed Yong Mata MD [address] [facility],[address], [address], [place] [facility] 10/09/2022 01:37:24 05/14/19 23 Lumbar JULIAN: Interlaminar completed Yong Mata MD [address] [facility],[address], [address], [place] [facility] 05/13/2022 12:33:53 03/30/19 23 Lumbar JULIAN: Interlaminar completed Yong Mata MD [address] [facility],[address], [address], [place] [facility] 03/30/2022 16:32:14 02/03/20 22 Lumbar JULIAN: Interlaminar completed Yong Mata MD [address] [facility],[address], [address], [place] [facility] 02/11/2022 09:52:26 10/28/19 22 Lumbar JULIAN: Interlaminar completed Yong Mata MD [address] [facility],[address], [address], [place] [facility] 10/27/2021 14:42:25 Imaging Results None recorded. Procedure Notes None recorded. Medical Equipment None Reported. Allergies Allergen ID Allergen Name Allergen Category Reaction Reaction Severity Criticality Documentation Date Start Date Code Code System Note Provider Name and Address Organization Details Recorded Time 2174 Product containin g penicilli n (product) medicatio n Not available Not available Not available 01/19/2022 71613 8001 SNOMED Mackenzie stamper null, [place] - [facility] 2 08:42:19 2175 Substance with sulfonami de structure and antibacte rial mechanism of action (substanc e) medicatio n Not available Not available Not available 01/19/2022 05136 8003 SNOMED Mackenzie stamper [place], [place] - [...] mg tablet TAKE ONE TABLET BY MOUTH now and again in 3 days active Not Available Not Available No [...] Not Available lidocaine 5 % topical patch APPLY 1 PATCH BY TOPICAL ROUTE ONCE DAILY (MAY WEAR UP TO 12HOURS.) 2024 active Not Available Not Available Not Avai lable promethazin e 25 mg tablet 09/06 completed Not Available Not Available Not Available ibuprofen 400 mg tablet active Not Available Not Available Not Available gabapentin 300 mg capsule Take 1 capsule 3 times a day by oral route. active Not Available Not Available No t Available sertraline 25 mg tablet 08/18 completed Not [...] 3 TIMES A DAY BY ORAL ROUTE. active Not Available Not Available No t Available methylpredn isolone 4 mg tablets in a [...] saturation in Arterial blood by Pulse oximetry Pain severity - 0-10 verbal numeric rating [Score] - Reported Systolic And Diastolic Provider Name and Address Organization Details Last Updated DateTime 5 157.48 cm 23.8 kg/m2 06170.0 1 g 86 /min 98 % 98 % 7 126/86 mm[Hg] GIL GUARDADO [place] - [facility] 5 13:31:18 Social History Question Answer Notes LastModified by Organizat ion Details LastModified Time Tobacco Smoking Status Never Smoker Mackenzie tonia dunn [place] - [facility] 01/19/2022 08:42:54 In The 14 Days Before Symptom Onset, Have You Had Close Contact With A Laboratory-confirm ed COVID-19 While That Case Was Ill? No [email or web address] Information n ot available 08/18/2022 In The 14 Days Before Symptom Onset, Have You Had Close Contact With A Person Who Is Under Investigation For COVID-19 While That Person Was Ill? No Information not available 08/18/2022 Have You Been To An Area Known To Be High Risk For COVID-19? No [email or web address] Information not available 08/18/2022 Sex: Unknown Functional Status Question Answer Note LastModified by Organizat ion Details LastModified Time Do you use any illicit or recreational drugs? No Information not available 01/19/2022 Do you or have you ever used any other forms of tobacco or nicotine? No Information not available 01/19/2022 What is your level of alcohol consumption? None [email or web address] Information not available 08/18/2022 Are you currently employed? No Information not available 12/20/2022 Mental Status None recorded. Family History Nothing Reported. Medical History Condition Response Coronary Artery Disease N Gout N Head Trauma/Injury N Depression N COPD N Anxiety Disorder N Arthritis N Acid Reflux (GERD) N Cancer N Stroke N Headaches N Fibromyalgia N Kidney Disease N Ulcers N Bleeding Disorder N Tuberculosis N AIDS/HIV N Asthma N Substance Abuse N Hepatitis N Hernia N Back Injury N High Cholesterol N Liver Disease N Thyroid Problems N Anemia N Heart Attack ([place]) N Diabetes N Heart Disease N Hypertension N Osteoporosis N Gynecological HistoryNo gynecological history recorded. Obstetrics History GPAL:G 0 P 0 0 0 0 Past Encounters Encounter ID Performer Location Encounter Start Date Encounter Closed Date Diagnosis/Indication Diagnosis SNOMED-CT Code Diagnosis ICD10 Code Diagnosis Note [id number] [address] [place] [address] 07/12/2024 14:30:09 07/12/2024 15:04:02 Lumbar radiculopathy 906152025 M54.16 Continuous opioid dependence 158434716 F11.20 Lumbar spondylosis 62261 0009 M47.896 Degenerati on of lumbar intervertebral disc 10303439 M51.369 Myofascial pain 67117655 9 M79.18 Polyneuropathy 28041181 G62.9 [id number] Yong Mata MD [address] [place] [address] 08/02/2024 13:23:41 08/02/2024 14:13:58 Lumbar radiculopathy 812260100 M54.16 Degenerati on of lumbar intervertebral disc 85019804 M51.369 Polyneuropathy 35187221 G62.9 History of lumbar fusion 6676611832 9106 Z98.1 Health Concerns Section Related Observation LastModified by Organization Detai ls LastModified Time None Recorded Concern Status LastModified by Organization Details LastModified Time None Recorded Payers Encounter Date Sequence Insurance Name Policy Number Policy Rhodes Covered Member ID Rhodes Member ID Guarantor Name 08/02/2024 1 [place]MEDICARE REPLACEMENT REGIONAL PPO) [id number] Luna Foreman [id number] Luna Foreman Notes Date Note Type Note Provider Name and Address Organization Details Recorded Time 08/02/2024 text/html Follow-up (meds & injections)Reported by PatientHPIFor improvement, patient reportspain is the same as compared to last visit.. For pain scores, patient reportsaverage pain- 7/10andcurrent pain- 8/10. For activities of daily living (adl), patient reportsliving independently.,able to bathe/groom without assistance.,able to complete rough rib grader., andwalking without assistance.. For adverse reactions, patient reportsno nausea.,no vomiting.,no constipation.,no itching.,no sedation.,no respiratory depression., andno sexual dysfunction.. For physical therapy, patient reportscompleted course in the past- ___. For recent injections, patient reportspain relief from injections- 80% lasting for __ __andepidural steroid injection: 80%}}(05/13/2022 (thera) ilesi l4/5 85% pain relief).ROS as noted in the HPI Yong Mata MD [address] [address], [place], [address], [place] [facility] 08/02/2024 17:48:41 OBGyn Episode No OBEpisode recorded.
--- OUTSIDE RECORDS SUMMARY | 2024-09-21 13:02 | XMS_ITS | Encounter Summary ---
Author Organization Healthcare Address [address] [place] [address] Care Team Providers Care Insurance Claims Examiner Name Role Phone GoodwinNaya morris Judy [employer]ST[employer]ER Primary Care Provider + [phone] Chelsey Mascorro Unavailable Yong Mata MD Unavailable Malena Burton [employer]ER[employer]OR INST[employer]ER Unavailable [phone] Encounter Details Date Type Department Care Team (Late Contact Info) Description 05/01/2021 Telephone [facility] Interventional Radiology [address] [place] [address] Erin Dolan RN [facility] Social History Tobacco Use Types Packs/Day Years Used Date Smoking Tobacco: Former Smokeless Tobacco: Never Alcohol Use Standard Drinks/Week Comments No 0 (1 standard drink = 0.6 oz pur e alcohol) Comments Unknown Sex and Gender Information Value Date Recorded Sex Assigned at Female 03/05/2022 11:33 AM EST Legal Sex Female 7:47 PM EDT Gender Identity Female 03/05/2022 11:33 AM EST Sexual Orientation Not on file documented as of this encounter Plan of Treatment Upcoming Encounters Date Type Department Care Team (Late st Contact Info) Description 09/26/2024 8:00 AM EDT Office Visit [facility] [address] [place] [address] Nevaeh Harrison, COMMERCIAL DOOR INSTALLER [address] [facility] [address] [place] [address] 10/18/2024 10:20 AM EDT Office Visit [place] [facility] [address] [place] [address] Malena Burton, COMMERCIAL DOOR INSTALLER [address] [place] [address] 12/25/2024 2:30 PM EDT Office Visit [facility] [address] [place] [address] Ferrer Comunidad, Nevaeh S, COMMERCIAL DOOR INSTALLER [address] [facility] [address] [place] [address] 03/06/2025 1:00 PM EST Clinical Support [facility] Laboratory Services [address] [facility] [place] [address] 03/20/2025 11:20 AM EST Evaluation [facility] Mineral Metabolism [address] [facility], [address] [place] [address] Neil Saldana, PharmD [address] [facility] [address] [place] [address] 04/25/2025 1:30 PM EST Office Visit Medical Office Building [facility] [address] [facility], [address] [place] [address] Arnav Ibarra MD [address] [facility] [address] [place] [address] documented as of this encounter Visit Diagnoses Not on filedocumented in this encounter Additional Health Concerns Infection Onset Date Last Indicated Resolved Time COVID-19 Rule-Out 08/08/2021 08/08/2021 08/08/2021 6:41 PM EDT Respiratory Rule-Out 08/09/2021 08/09/2021 022 11:31 AM EDT Assessment Noted Time A fall risk assessment has been complete d for the patient 03/04/2021 11:38 AM EST documented as of this encounter Care Teams Insurance Claims Examiner Relationship Specialty Start Date End Date Naya Goodwin APRN [facility] [place] [address] PCP - General 07/11/20 Chelsey Mascorro [address] [place] [address] [facility] [place] [place] [address] Referring Physician Gynecology 01/19/21 Yong Mata MD [facility] [address] [place] [address] Surgeon Pain Medicine 05/12/21 Malena Burton APRN [address] [facility] [address] [place] [address] Nurse Practitioner Urology 06/09/23 documented as of this encounter
--- OUTSIDE RECORDS SUMMARY | 2024-09-21 13:02 | XMS_ITS | Continuity of Care Document ---
Author Organization [facility] Office New Address [address] [place] [address] Care Team Providers Care Air Box Tester Name Role Phone DARREN GUTIERREZ Primary Care Provider DARREN GUTIERREZ Referring Provider [phone] Assessment Encounter Date Assessment Date Assessment LastModified by Organization Details LastModified Time 09/06/2024 09/06/2024 This patient continues to to recover from her lumbar fusion that she had in April. She has been cleared by Dr. Ibarra and she is recovering well. She also is 80% better from her lumbar RFA L4-L5 bilateral. This was above her fusion. She continues to do well pain score is an 8 out of 10. We will continue her gabapentin 300 mg 3 times a day, Percocet 7.5 mg 3 times a day and lidocaine patches. We will follow-up with her in 2 months. She is to call in 1 month for her prescriptions . She has been very compliant [place] and drug screen are all appropriate. abux Not available 09/06/2024 17:36:23 Plan of Treatment Reminders Order Date Submit Date Provider Last Modified By Organization Details Last Modified Time Details Appointments Follow Up 2024 02:40P Alina Mata MD Not available Not available Not available Lab None recorded. Referral None recorded. Procedures None recorded. Surgeries None recorded. Imaging None recorded. Medication Orders lidocaine 5 % topical patch 2024 025 [facility], [address] [place], [address], 09/06/2024 17:37:48 gabapenti n 300 mg capsule 2024 025 [facility], [address] [place], [address], 09/11/2024 11:50:53 oxycodone -acetamin ophen 7.5 mg-325 mg tablet 2024 025 [facility], [address] [place], [address], 09/11/2024 11:50:52 Patient TargetsNo targets recorded. Patient InstructionsNo instructions recorded. Reason for Referral None Reported. Problems Name Problem SNOMED Code Status Onset Date Resolution Date Notes Provider Name and Address Organization Details Recorded Time Degeneratio n of lumbar interverteb ral disc 22520785 Active 2021 Yong Mata MD [address] [place] [address], [address], [place] [facility] 2 14:44:06 Lumbar radiculopat hy 527781491 Active 2021 Yong Mata MD [address] [place] [address], [address], [place] [facility] 2 14:44:07 Inflammatio n of sacroiliac joint 55306321 Active 2022 Yong Mata MD [address] [place] [address], [address], [place] [facility] 3 18:31:00 Chronic pain syndrome 725874900 Active 2023 Ilana Bagley NP [address], [address], [place] [facility] 4 12:23:47 Lumbar spondylosis 748230920 Active 2023 Yong Mata MD [address] [place] [address], [address], [place] [facility] 4 14:41:57 Arthropathy of lumbar facet joint 866442749 Active 2023 Yong Mata MD [address], [address], [place] [facility] 4 14:41:58 Long-term drug therapy Active 2024 TIFFANY CHASE [address],[place] [facility], [place], [address], [place] [facility] 5 10:10:41 Continuous opioid dependence 827083637 Active 2024 TIFFANY CHASE [address],[place] [address] [place] [address], [address], [place] [facility] 5 10:10:42 History of lumbar fusion 3312200649611 6 Active 2024 Yong Mata MD [address],[place] [facility], [place], [address], [place] [facility] 5 17:47:32 Problem Notes None recorded. Procedures Surgical History Date Name Laterality Status Provider Name and Address Organization Details Recorded Time 08/03/19 25 BILAT 1 level LUMBAR RFA completed Yong Mata MD [address] [facility],[address], [address], [place] [facility] 08/02/2024 17:46:07 11/10/19 24 BILAT 1 level LUMBAR RFA completed Ynog Mata MD [address] [facility],[address], [address], [place] [facility] 11/10/2023 14:55:16 09/15/19 24 Diagnostic Lumbar MBB: 1 Level Bilateral completed Yong Mata MD [address], [address], [place] [facility] 09/15/2023 16:58:24 07/14/19 24 Diagnostic Lumbar MBB: 1 Level Bilateral completed Yong Mata MD [address],[place] [address] [place] [address], [address], [place] [facility] 07/14/2023 14:39:57 12/16/19 23 Diagnostic SI Joint Injection Under Fluoroscopy completed Yong Mata MD [address],[place] [address] [place] [address], [address], [place] [facility] 12/15/2022 10:33:10 11/05/19 23 Diagnostic SI Joint Injection Under Fluoroscopy completed Ynog Mata MD [address],[place] [facility], [place], [address], [place] [facility] 11/04/2022 17:01:56 10/09/19 23 Lumbar JULIAN: Interlaminar completed Yong Mata MD [address],[place] [facility], [place], [address], [place] [facility] 10/09/2022 01:37:24 05/14/19 23 Lumbar JULIAN: Interlaminar completed Yong Mata MD [address],[place] [address], [place], [address], [place] [facility] 05/13/2022 12:33:53 03/30/19 23 Lumbar JULIAN: Interlaminar completed Yong Mata MD [address],[place] [address], [place], [address], [place] [facility] 03/30/2022 16:32:14 02/03/20 22 Lumbar JULIAN: Interlaminar completed Yong Mata MD [address],[place] [address], [place], [address], [place] [facility] 02/11/2022 09:52:26 10/28/19 22 Lumbar JULIAN: Interlaminar completed Yong Mata MD [address] [facility],[address], [address], [place] [facility] 10/27/2021 14:42:25 Imaging Results None recorded. Procedure Notes None recorded. Medical Equipment None Reported. Allergies Allergen ID Allergen Name Allergen Category Reaction Reaction Severity Criticality Documentation Date Start Date Code Code System Note Provider Name and Address Organization Details Recorded Time 2174 Product containin g penicilli n (product) medicatio n Not available Not available Not available 01/19/2022 37352 8001 SNOMED Mackenzie randall null, [place] - [facility] 2 08:42:19 2175 Substance with sulfonami de structure and antibacte rial mechanism of action (substanc e) medicatio n Not available Not available Not available 01/19/2022 10379 8003 SNOMED Mackenzie paigeer null, [place] [facility] [...] No t Available sertraline 25 mg tablet 06/21 /2023 completed Not Available Not Available Not Available [...] Updated DateTime 5 157.48 cm 23.8 kg/m2 11879.0 1 g 86 /min 98 % 98 % 9 126/86 mm[Hg] GIL GUARDADO [place] - [facility] 5 14:22:22 Social History Question Answer Notes LastModified by Organizat ion Details LastModified Time Tobacco Smoking Status Never Smoker Mackenzie dunn [place] - [facility] 01/19/2022 08:42:54 In The 14 Days Before Symptom Onset, Have You Had Close Contact With A Laboratory-confirm ed COVID-19 While That Case Was Ill? No [email or web address] Information n ot available 08/18/2022 In The 14 Days Before Symptom Onset, Have You Had Close Contact With A Person Who Is Under Investigation For COVID-19 While That Person Was Ill? No [email or web address] Information not available 08/18/2022 Have You Been To An Area Known To Be High Risk For COVID-19? No [email or web address] Information not available 08/18/2022 Sex: Unknown Functional Status Question Answer Note LastModified by Organizat ion Details LastModified Time Do you use any illicit or recreational drugs? No Information not available 01/19/2022 Do you or have you ever used any other forms of tobacco or nicotine? No Information not available 01/19/2022 What is your level of alcohol consumption? None [email or web address] Information not available 08/18/2022 Are you currently employed? No [email or web address] Information not available 12/20/2022 Mental Status None recorded. Family History Nothing Reported. Medical History Condition Response Coronary Artery Disease N Gout N Head Trauma/Injury N Hernia N Thyroid Problems N Depression N COPD N Anemia N Ulcers N Heart Attack (GA) N Diabetes N Anxiety Disorder N Bleeding [...] SNOMED-CT Code Diagnosis ICD10 Code Diagnosis Note 05006 Yong Mata MD [address] [place] [address] 09/06/2024 14:13:19 09/06/2024 15:14:05 Lumbar radiculopathy 438345160 M54.16 Continuous opioid dependence 834030742 F11.20 Lumbar spondylosis 72321 0009 M47.896 Degenerati on of lumbar intervertebral disc 03764251 M51.369 Polyneuropathy 48926455 G62.9 Health Concerns Section Related Observation LastModified by Organization Detai ls LastModified Time None Recorded Concern Status LastModified by Organization Details LastModified Time None Recorded Payers Encounter Date Sequence Insurance Name Policy Number Policy Rhodes Covered Member ID Rhodes Member ID Guarantor Name 09/06/2024 1 MEHUL-SONJA: SHAUNNA CARVER OF [place] - [employer]ESS (MEDICARE REPLACEMENT REGIONAL O) [id number] Luna Foreman [id number] Luna Foreman Notes Date Note Type Note Provider Name and Address Organization Details Recorded Time 09/06/2024 text/html Follow-up (meds & injections)Reported by PatientHPIFor improvement, patient reportspain is the same as compared to last visit.. For pain scores, patient reportsaverage pain- 9/10andcurrent pain- 8/10. For activities of daily living (adl), patient reportsliving independently.,able to bathe/groom without assistance.,able to complete chief crew scheduler., andwalking without assistance.. For adverse reactions, patient reportsno nausea.,no vomiting.,no constipation.,no itching.,no sedation.,no respiratory depression., andno sexual dysfunction.. For physical therapy, patient reportscompleted course in the past- ___. For recent injections, patient reportspain relief from injections- 80% lasting for __ __andepidural steroid injection: 80%}}(05/13/2022 (thera) ilesi l4/5 85% pain relief).ROS as noted in the HPI Yong Mata MD [address] [address], [place], [address], [place] [facility] 09/06/2024 17:37:15 OBGyn Episode No OBEpisode recorded.
--- OUTSIDE RECORDS SUMMARY | 2024-09-21 13:03 | XMS_ITS | Clinical Summary ---
Author Organization [facility] Address [address] [place] [address] Care Team Providers Care Office Technologist Name Role Phone Naya Goodwin APRN Primary Care Provider [phone] Chelsey Mascorro Unavailable Yong Mata MD Unavailable Malena Burton APRN Unavailable [phone] Allergies Active Allergy Reactions Criticality Noted Date Comments Penicillin V Anaphylaxis High 11/19/2007 penicillin V potassium Penicillins Other - please docum ent in the comment field Low 12/24/2013 Nausea/Vomiting Sulfa Drugs Other - please docum ent in the comment field Low 08/08/2021 Nausea/vomiting Trimethoprim Nausea,Vomiting Low 01/30/2021 Varenicline Nausea,Vomiting Low 01/05/2023 Medications busPIRone (Buspar) 10 MG tablet Take 1 tablet (10 mg) by mouth 4 (four) times a day. 1 Active fluticasone (Flonase) 50 MCG/ACT nasal spray Administer 1 spray into each nostril daily. 1 Active pantoprazole (Protonix) 40 MG EC tablet Take 1 tablet (40 mg) by mouth daily before breakfast. 1 Active Misc. Devices (Sitz Bath) misc 1 kit 1 (one) time per week. 3 each 4 Active calcium carbonate (Tums) 500 MG chewable tabletIndications: Osteoporosis without current pathological fracture, unspecified osteoporosis type Chew 1 tablet (500 mg) 3 (three) times a day with meals. 90 tablet 3 4 Active calcitriol (Rocaltrol) 0.25 MCG capsuleIndications :Secondary hyperparathyroidis m, non-renal (CMS/HCC) Take 1 capsule (0.25 mcg) by mouth 1 (one) time each day. 30 capsule 5 4 Active nystatin (Mycostatin) creamIndications:V aginal itching,Yeast infection of the vagina Apply to effected area twice daily or as needed to help with itching. 30 g 1 4 Active gabapentin (Neurontin) 300 MG capsule Take 1 capsule (300 mg) by mouth 3 (three) times a day. Active promethazine (Phenergan) 12.5 MG tablet Take 1 tablet (12.5 mg) by mouth every 8 hours as needed for nausea. 4 Active LORazepam (Ativan) 1 MG tablet Take 2 tablets (2 mg) by mouth nightly. Active acetaminophen (Tylenol) 500 MG tablet Take 2 tablets (1,000 mg) by mouth every 8 hours. 100 tablet 1 5 Active naloxone (Narcan) 4 mg/0.1 mL nasal spray 1. Give 1 spray in nostril for no/slow breathing or cannot wake after opioid use 2. Call 911 3. Repeat in other nostril if symptoms continue 1 each 5 Active ondansetron ODT (Zofran-ODT) 4 MG disintegrating tablet Take 1 tablet (4 mg) by mouth every 6 hours as needed for nausea or vomiting. 20 tablet 5 Active oxyCODONE (Roxicodone) 5 MG immediate release tablet Take 1 tablet (5 mg) by mouth every 6 hours as needed for moderate pain. 20 tablet 5 Active Docusate Sodium (DSS) 100 MG capsule Take 100 mg by mouth in the morning and 100 mg before bedtime. 28 capsule 5 Active clobetasol (Temovate) 0.05 % cream Apply topically twice weekly. 30 g 5 Active methocarbamol (Robaxin) 500 MG tablet START BY TAKING 1 PILL BY MOUTH EVERY NIGHT. SLOWLY INCREASE TO 1 PILL 2X/DAY NEEDED, WITH A MAXIMUM OF 2 PILLS 3X/DAY. 180 tablet 10 5 Active escitalopram (Lexapro) 20 MG tablet Take 1 tablet by mouth daily. Active lidocaine (Lidoderm) 5 % patch APPLY 1 PATCH BY TOPICAL ROUTE ONCE DAILY (MAY WEAR UP TO 12HOURS.) 5 Active Retin-A 0.05 % cream APPLY TO THE AFFECTED AREA(S) BY TOPICAL ROUTE ONCE DAILY AT BEDTIME 5 Active cholecalciferol 25 MCG (1000 UT) tabletIndications: Age-related osteoporosis without current pathological fracture Take 1 tablet by mouth daily. 30 tablet 11 5 026 Active Active Problems Problem Noted Date Diagnosed Date Spondylolisthesis at L4-L5 level 04/23/2024 Lumbar stenosis with neurogenic claudication Lumbosacral spondylosis with radiculopathy 01/15 Lumbar spondylosis 07/14/2023 Weight loss 07/07/2023 Intestinal malabsorption 07/07/2023 Spondylolisthesis of lumbosacral region 07/07/19 24 Pelvic floor dysfunction 06/09/2023 Age-related osteoporosis wit hout current pathological fracture 05/25/2023 Secondary hyperparathyroidism, non-renal 024 Recurrent UTI 04/11/2023 Right upper quadrant abdominal pain 08/08/2021 Irritable bowel syndrome 09/16/2020 Overview (06/02/2023): Problem Code: K58.2; Problem Code Type: ICD-10; Tobacco dependence due to cigarettes 03/17/2020 Overview (07/07/2023): Problem Code: F17.210; Problem Code Type: ICD-10; Vitamin D deficiency 09/24/2019 Overview (06/02/2023): Problem Code: E55.9; Problem Code Type: ICD-10; Vulvar intraepithelial neoplasia (SANJEEV) grade 3 0 06/28/2019 Overview (07/07/2023): 07/13/2019 simple partial vulvectomy, final path high grade dyspalsi on the right and low grad donnie left. pos margins. advise quit smoking f/u 6-12 months Chronic pain syndrome 08/19/2017 Overview (06/02/2023): Problem Code: G89.4; Problem Code Type: ICD-10; Gastro-esophageal reflux disease with esophagiti s 05/19/2017 Overview (06/02/2023): Problem Code: K21.0; Problem Code Type: ICD-10; Major depression, single episode 11/22/2016 Overview (06/02/2023): Problem Code: F32.9; Problem Code Type: ICD-10; Chronic obstructive lung disease 11/22/2016 Overview (07/07/2023): Problem Code: 496; Problem Code Type: ICD-9; Sciatic neuropathy 02/03/2016 Resolved Problems Problem Noted Date Diagnosed Date Resolved Date Spondylolisthesis of lumbar region 01/16/2024 08/14/2024 Vulvar cancer 07/13/2019 08/08/2021 Overview (08/08/2021): Malignant neoplasm of vulva, unspecified DDD (degenerative disc disease), lumbar 03/07/2015 08/08/2021 Low back pain 01/20/2015 08/08/2021 Encounters Date Type Department Care Team Description 08/29/2024 Telephone [facility] [address] [facility] [address] [place] [address] Nevaeh Harrison APRN 08/22/2024 1:20 PM EDT Office Visit Medical Office Building [facility] [address], [address] [place] [address] Radha Hughes, PA Fusion of lumbar spine (Primary Dx); Lumbar spondylosis 08/22/2024 Travel 08/14/2024 2:00 PM EDT Office Visit [facility] [address], [address] [place] [address] Sana Strong MD Age-related osteoporosis without current pathological fracture (Primary Dx); Lumbar spondylosis; Spondylolisthesis at L4-L5 level; Secondary hyperparathyroidism, non-renal (CMS/HCC); Chronic obstructive pulmonary disease, unspecified COPD type (CMS/HCC); Gastroesophageal reflux disease with esophagitis without hemorrhage; Lumbar stenosis with neurogenic claudication 08/14/2024 12:46 PM EDT - 08/14/2024 11:59 PM EDT Hospital Encounter [facility] [address], [address] [place] [address] Age-related osteoporosis without current pathological fracture Discharge Disposition: Home or Self Care 08/14/2024 Travel 08/09/[address] [facility] [address] [place] [phone] Malena Burton, COMMERCIAL LINES ACCOUNT EXECUTIVE 08/06/2024 Telephone [facility] [address], [address] [place] [address] SoaresBarrington fosteryton E 08/06/2024 Telephone [facility] [address], [address] [place] [address] Soares, Betsy E 07/02/2024 Orders Only [facility] [address] [place] [address] Nevaeh Harrison S, COMMERCIAL LINES ACCOUNT EXECUTIVE History of abnormal cervical Pap smear 07/02/2024 Telephone [facility] [address] [place] [address] Nevaeh Harrison, COMMERCIAL LINES ACCOUNT EXECUTIVE 07/02/2024 Telephone [facility] [address] [place] [address] Nevaeh Harrison, COMMERCIAL LINES ACCOUNT EXECUTIVE 06/25/2024 Results Follow-Up [facility] [address] [place] [address] Nevaeh Harrison, COMMERCIAL LINES ACCOUNT EXECUTIVE from Last 3 Months Immunizations Immunization Administration Dates Next Due Hep A, Adult 2018,02/11/2018 Influenza, injectable, MDCK, preservative free, quadrivalent 12/29/2021 Influenza, injectable, quadrivalent 2018,1 ,02/03/2016 Influenza, injectable, quadr ivalent, preservative free 12/03/2022,12/22/2020,11/15/2019 Influenza, seasonal, injectable 2018,11/22 Influenza, seasonal, injecta ble, preservative free 12/12/2023 Family History Medical History Relation Name Comments Lung cancer Father Conversions - Other Mother pulmonar y edema Hypertension Mother Stroke Mother Anesthesia problems Neg Hx Malig Hyperthermia Neg Hx Relation Name Status Comments Father Mother Social History Tobacco Use Types Packs/Day Years [...] AM EST Sexual Orientation Not on file Last Filed Vital Signs Vital Sign Reading Time Taken Comments Blood Pressure 105/71 08/22/2024 1:14 PM EDT Pulse 82 08/22/2024 1:14 PM EDT Temperature 36.6 C (97.8 F) 08/14/2024 1:48 PM EDT Respiratory Rate 18 06/20/2024 2:18 PM EDT Oxygen Saturation 97% 08/22/2024 1:14 PM EDT Inhaled Oxygen Concentration - - Weight 57 kg (125 lb 10.6 oz) 08/22/2024 1:14 PM EDT Height 157.5 cm (5' 2 ) 08/22/2024 1:14 PM EDT Body Mass Index 22.98 08/22/2024 1:14 PM EDT Plan of Treatment Upcoming Encounters Date Type Department Care Team (Late st Contact Info) Description 09/26/2024 8:00 AM EDT Office Visit [facility] Gynecology [address] [place] [phone] Nevaeh Harrison S, COMMERCIAL LINES ACCOUNT EXECUTIVE [address] [facility] [address] [facility] [address] [place] [phone] 10/18/2024 10:20 AM EDT Office Visit [facility] [address] [place] [address] Malena Burton, COMMERCIAL LINES ACCOUNT EXECUTIVE [address] [place] [address] 12/25/2024 2:30 PM EDT Office Visit [facility] Gynecology [address] [facility] [address] [place] [phone] Nevaeh Harrison S, COMMERCIAL LINES ACCOUNT EXECUTIVE [address] [facility] [address] [facility] [address] [place] [phone] 03/06/2025 1:00 PM EST Clinical Support [facility] [address] 1[address] [place] [address] 03/20/2025 11:20 AM EST Evaluation [facility] [address], [address] [place] [address] Neil Saldana, PharmD [address] [place] [address] 04/25/2025 1:30 PM EST Office Visit Medical Office Building [facility] [address], [address] [place] [address] Arnav Ibarra MD [address] [facility] [address] [place] [address] Health Maintenance Due Date Last Done Comments [facility]-Medicare Annual Wellness (AWV) 1960 [facility]-Infant/Child/Adol SDOH Screenings 1960 [facility]- SDOH Screenings 1980 [facility]-Adult SDOH Screenings 1980 [facility]-DTaP,Tdap,and Td Vaccines (1 - Tdap) 1981 CT Colonography 11/25/2007 Colonoscopy 11/25/2007 FIT-DNA 11/25/2007 FIT 11/25/2007 FOBT 11/25/2007 Sigmoidoscopy 11/25/2007 [facility]-Colorectal Cancer Screening 11/25/2007 [facility]-Breast Cancer Screening 2012 [facility]-Pneumococcal Vaccine: 50+ Years (1 of 1 - PCV) 2012 [facility]-Zoster Vaccines (1 of 2) 2012 [facility]-VLECB-05 Vaccine (6 - season) 2023 03/16/2023, 10/09/2021, 02/25/2021, Additional history exists [facility]-Influenza Vaccine (#1) 10/29/202412/11, 12/03/2022, 12/29/2021, Additional history exists [facility]-Lung Cancer Screening 11/27/2024 11/28/2023, 01/2022 [facility]-Depression Screening 06/20/2025 025, 06/20/2024, 01/25/2024, Additional history exists [facility]-Bone Density Scan 08/14/2025 08/14/2024 , 05/10/2023, 05/10/2023 [facility]-RSV Vaccine: 60+ Years or (1 - 1-dose 75+ series) 2037 [facility]-Hepatitis A Vaccines Aged Out 2018, 01/28 No longer eligible based on patient's age to complete this topic [facility]-Hepatitis C Screening Completed 08/08/2021, 12/2021 [facility]-HIV Screening Completed 08/10/2021, 08/08/2021 HPV Vaccines Aged Out No longer eligi ble based on patient's age to complete this topic [facility]-HIB Vaccines Aged Out No longer e ligible based on patient's age to complete this topic [facility]-IPV Vaccines Aged Out No longer e ligible based on patient's age to complete this topic [facility]-Rotavirus Vaccines Aged Out No lo nger eligible based on patient's age to complete this topic Medical Devices Implanted Type Area Biomass Plant Manager Device Identifier Shelf Expiration Date Model / Serial / Lot Single Inner Setscrew - [id number] Implanted:Qty: 4 on 04/23/2024 by Arnav Ibarra MD at [facility] Screw N/A: Spine Lumbar DePuy Spine Sales [id number] / / N/A Screw 5.5mm Viper Ti Fen Crtcl Polyax 7mm X 40mm - [id number] Implanted:Qty: 2 on 04/23/2024 by Arnav Ibarra MD at [facility] Screw N/A: Spine Lumbar DeP[employer] Spine [employer] [id number] / / N/A Screw 5.5mm Viper Ti Fen Crtcl Polyax 6mm X 40mm - [id number] Implanted:Qty: 2 on 04/23/2024 by Arnav Ibarra MD at [facility] Screw N/A: Spine Lumbar DePuy Spine [employer] [id number] / / N/A Nerve Stimulator N/A: Back Matrix Fibergraft Bg Medium 6.25cc - [id number] Implanted:Qty: 1 on 04/23/2024 by Arnav Ibarra MD at [facility] N/A: Spine Lumbar De[employer]uy Spine [employer] [id number] 10/25/2026 [id number] / / [id number] Description:Surgeon uses the patients own blood to prepare Pre-Lordosed Terrance W/ Line 35mm - [id number] Implanted:Qty: 2 on 04/23/2024 by Arnav Ibarra MD at [facility] N/A: Spine Lumbar DePuy Spine Sales [id number] / / N/A Procedures Procedure Name Priority Date/Time Associated Diagnosis Comments CREATININE, RANDOM URINE Routine 08/14/2024 1:42 PM EDT Age-related osteoporosis without current pathological fracture CALCIUM, RANDOM URINE Routine 08/14/2024 1:42 PM EDT Age-related osteoporosis without current pathological fracture DEXA BONE DENSITY Routine 08/14/2024 12: 46 PM EDT Age-related osteoporosis without current pathological fracture IONIZED CALCIUM, SERUM Routine 12:42 PM EDT Age-related osteoporosis without current pathological fracture PTH INTACT TOTAL Routine 08/14/2024 12:4 2 PM EDT Age-related osteoporosis without current pathological fracture C-TELOPEPTIDE Routine 08/14/2024 12:42 PM EDT Age-related osteoporosis without current pathological fracture RENAL FUNCTION PANEL, PLASMA Routine 08/14/2024 12:42 PM EDT Age-related osteoporosis without current pathological fracture BONE SPECIFIC ALKALINE PHOSPHATASE Routine 08/14/2024 12:42 PM EDT Age-related osteoporosis without current pathological fracture ALKALINE PHOSPHATASE, PLASMA Routine 08/14/2024 12:42 PM EDT Age-related osteoporosis without current pathological fracture PTH PANEL 1 Routine 08/14/2024 12:42 PM EDT Age-related osteoporosis without current pathological fracture OSTEOCALCIN BY ECIA (SO) Routine 08/14/2024 12:42 PM EDT Age-related osteoporosis without current pathological fracture VITAMIN D 25 HYDROXY Routine 08/14/2024 12:42 PM EDT Age-related osteoporosis without current pathological fracture N TELOPEPTIDE, CROSS-LINKED, SERUM (SO) Routine 08/14/2024 12:42 PM EDT Age-related osteoporosis without current pathological fracture CT CHEST W IV CONTRAST Routine 3:37 PM EDT History of abnormal cervical Pap smear Vulvar dysplasia HIV 1/2 ANTIBODY/ANTIGEN SCREEN WITH REFLEX TO HIV I/II DIFFERENTIATION Routine 08/10/2021 3:31 AM EDT ACUTE HEPATITIS PANEL STAT 08/08/2021 4:28 PM EDT from Last 3 Months or Most Recently Relevant to Health Maintenance Results * Creatinine, Random, Urine (08/14/2024 1:42 PM EDT) Creatinine, Urine 177 mg/dL 08/14/2024 2:54 PM EDT [facility] Urine Urine specimen obtained by clean catch procedure / Unknown Non-blood Collection / Unknown 08/14/2024 1:42 PM EDT 08/14/2024 1:42 PM EDT Sana Strong MD LAB URINE ORDERABLES Final Res ult Performing Organization Address City/[facility]/ZIP Co de Phone Number [facility] [address] [place] [address] * Calcium, Random, Urine (08/14/2024 1:42 PM EDT) Calcium, Urine 3.4 mg/dL 08/14/2024 4:49 PM EDT [facility] Urine Urine specimen obtained by clean catch procedure / Unknown Non-blood Collection / Unknown 08/14/2024 1:42 PM EDT 08/14/2024 1:42 PM EDT Sana Strong MD LAB URINE ORDERABLES Final Res ult Performing Organization Address City/[facility]/ZIP Co de Phone Number [facility] [address] [place] [address] * Dexa Bone Density (08/14/2024 12:46 PM EDT) Anatomical Region Laterality Modality L-spine Radiographic Mitra ging Narrative 08/18/2024 9:02 PM EDT [facility] - [facility] [address] [place] [address] DXA Bone Densitometry Report: [08/14/2024] BMD test performed using the Lunar iDXA DXA System (analysis version: 14.10) manufactured by [employer]. REFERRING PROVIDER: Dr. Sana Strong MD CLINICAL [...] MD IMG DXA PROCEDURES Final Resul t * Bone Specific Alkaline Phosphatase (08/14/2024 12:42 PM EDT) [facility] Bone Specific Alkaline Phosphatase 26.3 ug/L 08/14/2024 4:33 PM EDT [facility] Comment: BSAP (Ostase) Reference Values, Female, age 18 years and up: Premenopausal: 4.5 to 16.9 ug/L Postmenopausal: 7.0 to 22.4 ug/L Blood Venous blood specimen / Unknown Venipuncture / Unknown 08/14/2024 12:42 PM EDT 08/14/2024 12:43 PM EDT Sana Strong MD LAB REF LAB BLOOD AND FLUID OR D Final Result [facility] [address] [place] [address] * Ionized calcium, serum (08/14/2024 12:42 PM EDT) Ionized Calcium, Serum 5.1 4.6 - 5.3 mg/dL LAB HEMATOLOGY METHOD 08/14/2024 2:31 PM EDT [facility] Blood Venous blood specimen / Unknown Venipuncture / Unknown 08/14/2024 12:42 PM EDT 08/14/2024 12:43 PM EDT Sana Strong MD LAB BLOOD ORDERABLES Final Res ult Performing Organization Address [facility]/ZIP Co de Phone Number [facility] [address] [place] [address] * C-Telopeptide (08/14/2024 12:42 PM EDT) C Telopeptide Beta Cross Linked Serum Result 519 pg/mL 08/16/2024 12:24 AM EDT [employer] ([employer]) Blood Venous blood specimen / Unknown Venipuncture / Unknown 08/14/2024 12:42 PM EDT 08/14/2024 12:43 PM EDT Narrative [facility] [employer] (NAIMA) - 08/16/2024 12:24 AM EDT Premenopausal Females: 136-689 pg/mL Postmenopausal Females: 177-1015 pg/mL REFERENCE INTERVAL: C-Telopeptide, Sgbt-Abiuq-Ybdvcc, Serum Access complete set of age- and/or gender-specific reference intervals for this test in the [employer] [facility] Test Directory (e-Rewards). Performed By: [facility] [address] [place] [id number] Front Elevator Operator: Duncan Keller MD, PhD CLIA Number: [id number] Sana Strong MD LAB BLOOD ORDERABLES Final Res ult Performing Organization Address City/[facility]/ZIP Co de Phone Number [facility] [employer]) [address] [place] [address] * N telopeptide, cross-linked, serum (08/14/2024 12:42 PM EDT) N-Telopeptide, Cross-Linked, Serum 23.0 nM BCE 08/17/2024 4:[address] [facility] LearnBIGMINALRedux) Blood Venous blood specimen / Unknown Venipuncture / Unknown 08/14/2024 12:42 PM EDT 08/14/2024 12:43 PM EDT [facility] [employer]STACY) - 08/17/2024 4:29 PM EDT INTERPRETIVE INFORMATION: N-Telopeptide, Cross-Linked, Serum Adult Male.......................5.4 - 24.2 nM BCE Premenopausal Adult Female.......6.2 - 19.0 nM BCE The target value for treated post-menopausal adult females is the same as the premenopausal reference interval. BCE = Bone Collagen Equivalent Performed By: [facility] [address] [place] [address] Front Elevator Operator: Duncan Keller MD, PhD CLIA Number: [id number] Sana Strong MD LAB BLOOD ORDERABLES Final Res ult [facility]) [address] [place] [address] * (ABNORMAL) Osteocalcin by ECIA (08/14/2024 12:42 PM EDT) OSTEOCALCIN BY ECIA 47(H) 8 - 36 ng/mL 08/16/2024 11:29 PM EDT [facility] ipatter.comNAIMA) Blood Venous blood specimen / Unknown Venipuncture / Unknown 08/14/2024 12:42 PM EDT 08/14/2024 12:43 PM EDT [facility] [employer]STACY) - 08/16/2024 11:29 PM EDT INTERPRETIVE INFORMATION: Osteocalcin by ECIA In patients with renal failure, the osteocalcin result may be directly elevated, due to impaired clearance, and/or indirectly elevated due to renal osteodystrophy. Access complete set of age- and/or gender-specific reference intervals for this test in the [employer] [facility] Test Directory ([employer]-Rewards). Performed By: [facility] [address] [place] [id number] Front Elevator Operator: Duncan Keller MD, PhD CLIA Number: [id number] Sana Strong MD LAB BLOOD ORDERABLES Final Res ult Performing Organization Address City/[facility]/ZIP Co de Phone Number [facility] (NAIMA) [address] [place] [address] * Vitamin D 25 Hydroxy (08/14/2024 12:42 PM EDT) Vitamin D 25 Hydroxy 41.8 20.0 - 80.0 ng/mL 08/14/2024 4:21 PM EDT [facility] Blood Venous blood specimen / Unknown Venipuncture / Unknown 08/14/2024 12:42 PM EDT 08/14/2024 12:43 PM EDT [facility] - 08/14/2024 4:21 PM EDT Testing performed on [employer] Finisher, standardized against NIST SRM 2972. When testing samples from patients whose predominant form of vitamin D is vitamin D2, such as patients receiving vitamin D2 supplementation, results that are subtherapeutic should be confirmed with another method, such as LC-MS/MS, before being used for patient management. Vitamin D, 25-Hydroxy reference range, age 18 years and up: Deficiency: <12 ng/mL Insufficiency: 12 to 19 ng/mL Sufficiency: 20 to 80 ng/mL Possible toxicity: >100 ng/mL Sana Strong MD LAB BLOOD ORDERABLES Final Res ult [facility] [address] [place] [address] * Alkaline Phosphatase (08/14/2024 12:42 PM EDT) Alkaline Phosphatase, Plasma 129 46 - 142 U/L 08/14/2024 2:54 PM EDT [facility] Blood Venous blood specimen / Unknown Venipuncture / Unknown 08/14/2024 12:42 PM EDT 08/14/2024 12:43 PM EDT Sana Strong MD LAB BLOOD ORDERABLES Final Res ult Performing Organization Address City/[facility]/ZIP Co de Phone Number [facility] [address] [place] [address] * (ABNORMAL) PTH Intact Total (08/14/2024 12:42 PM EDT) PTH Intact Total 112(H) 9 - 77 pg/mL 08/14/2024 4:07 PM EDT [facility] Blood Venous blood specimen / Unknown Venipuncture / Unknown 08/14/2024 12:42 PM EDT 08/14/2024 12:43 PM EDT Narrative [facility] - 08/14/2024 4:07 PM EDT Assay performed by immunoassay at the [facility]. Performed on Whiting Brush Finisher chemiluminescent immunoassay, tractable to the World Health Organization's first international standard for PTH from the NIBS, Code 79/500. Results obtained from different test methods or kits cannot be used interchangeably. Sana Strong MD LAB BLOOD ORDERABLES Final Res ult Performing Organization Address City/[facility] Co de Phone Number [facility] [address] [place] [address] * Renal Function Panel, Plasma (08/14/2024 12:42 PM EDT) Glucose, Plasma 93 74 - 99 mg/dL 08/14/2024 2:54 PM EDT [facility] BUN, Plasma 10 8 - 23 mg/dL 08/14/2024 2:54 PM EDT [facility] Creatinine, Plasma 0.95 0.60 - 1.10 mg/dL 08/14/2024 2:54 PM EDT [facility] BUN/Creatinine Ratio 11 08/14/2024 2:54 PM EDT [facility] Sodium, Plasma 143 136 - 145 mmol/L 08/14/2024 2:54 PM EDT [facility] Potassium, Plasma 3.9 3.6 - 4.9 mmol/L 08/14/2024 2:54 PM EDT [facility] Chloride, Plasma 105 97 - 107 mmol/L 08/14/2024 2:54 PM EDT [facility] CO2, Plasma 29 22 - 29 mmol/L 08/14/2024 2:54 PM EDT [facility] Anion Gap 9 6 - 16 mmol/L 08/14/2024 2:54 PM EDT [facility] Total Calcium, Plasma 9.4 8.9 - 10.2 mg/dL 08/14/2024 2:54 PM EDT [facility] Phosphorus, Plasma 3.7 2.5 - 4.5 mg/dL 08/14/2024 2:54 PM EDT [facility] Albumin, Plasma 4.3 3.5 - 5.2 g/dL 08/14/2024 2:54 PM EDT [facility] eGFRcr 68.3 mL/min/1.7 3m*2 08/14/2024 2:54 PM EDT [facility] Comment:Reported eGFRcr in m L/min/1.73m2 is based the CKD-EPI 2020 equation that does not use a race coefficient. Blood Venous blood specimen / Unknown Venipuncture / Unknown 08/14/2024 12:42 PM EDT 08/14/2024 12:43 PM EDT Sana Strong MD LAB BLOOD ORDERABLES Final Res ult [facility] [address] [place] [address] * CT Chest w IV Contrast (11/28/2023 3:37 PM EDT) Anatomical Region Laterality Modality Chest Computed Tomogra phy Impressions 11/28/2023 5:01 PM EDT Chest: No specific evidence for thoracic metastasis. Abdomen/Pelvis: No specific evidence for abdominal or pelvic metastasis. CRITICAL RESULT: No. COMMUNICATION: Per this written report. Drafted by Lupillo Coughlin MD on 11/28/2023 4:45 PM Final report signed by Lupillo Coughlin MD on 11/28/2023 5:01 PM Narrative 11/28/2023 5:01 PM EDT CLINICAL INDICATION: vulvar dysplasia TECHNIQUE: Multiple axial CT images were obtained from thoracic inlet through pubic symphysis following administration of IV contrast, Omnipaque 300, 100 mL. Reformatted images of the abdomen and pelvis in the coronal and sagittal planes were generated from the axial data set to facilitate diagnostic accuracy. Total DLP (Dose-Length Product): 440.78 mGy.cm. Please note: The reported value represents the total of one or more individual components during the CT acquisition on this date and at this time, and as such, the same value may appear in more than one CT report depending on the interpreting/reporting physicians. COMPARISON: 08/09/2021 CT chest. 08/08/2021 CT abdomen and pelvis. FINDINGS: Chest: Lymph Nodes and Mediastinum: No imaged suspicious thyroid nodule. No enlarged axillary or imaged supraclavicular lymph nodes. Subcentimeter intrathoracic lymph nodes are unchanged. No suspicious mediastinal mass. Cardiovascular: Normal heart size. Trace pericardial fluid. Coronary artery calcifications. Lungs and Pleura: The central airways are patent. No suspicious pulmonary nodule. Biapical pleural-parenchymal scarring. No pleural effusions or suspicious thickening. Musculoskeletal and Body Wall: No aggressive osseous findings. Intracanalicular spinal stimulator leads. Abdomen/Pelvis: Solid Abdominal Organs: No suspicious focal hepatic mass. Prior cholecystectomy. Intra and extrahepatic duct dilatation, to level of the ampulla, unchanged. This may reflect postcholecystectomy ectasia. No pancreatic duct dilatation. No peripancreatic inflammation. Normal size spleen. No adrenal nodule. Symmetric renal enhancement. No suspicious mass or hydronephrosis. GI Tract/Mesentery/Peritoneum: No bowel dilatation or transition point to suggest obstruction. No pneumatosis or pneumoperitoneum. No suspicious bowel wall thickening or mesenteric findings.. Pelvic Viscera: Circumferential bladder wall thickening. Prior hysterectomy. No suspicious pelvic mass. Lymph Nodes/Vasculature: Atherosclerotic abdominal aorta without aneurysm. No major abdominal vascular occlusion. No enlarged lymph nodes. Free Fluid:None. Musculoskeletal and Body Wall:No overtly suspicious mass within the vulva, to the limits of this examination. No aggressive body wall findings. Degenerative changes in the imaged spine with grade 1 degenerative anterolisthesis of L4 on L5. Neurostimulator battery pack in the right paraspinal region. Procedure Note Lupillo Coughlin MD - 11/28/2023 CLINICAL INDICATION: vulvar dysplasia TECHNIQUE: Multiple axial CT images were obtained from thoracic inlet through pubicsymphysis following administration of IV contrast, Omnipaque 300, 100 mL.Reformatted images of the abdomen and pelvis in the coronal and sagittalplanes were generated from the axial data set to facilitate diagnosticaccuracy. Total DLP (Dose-Length Product): 440.78 mGy.cm. Please note: The reportedvalue represents the total of one or more individual components during theCT acquisition on this date and at this time, and as such, the same valuemay appear in more than one CT report depending on theinterpreting/reporting physicians. COMPARISON: 08/09/2021 CT chest. 08/08/2021 CT abdomen and pelvis. FINDINGS: Chest: Lymph Nodes and Mediastinum: No imaged suspicious thyroid nodule. Noenlarged axillary or imaged supraclavicular lymph nodes. Subcentimeterintrathoracic lymph nodes are unchanged. No suspicious mediastinal mass. Cardiovascular: Normal heart size. Trace pericardial fluid. Coronaryartery calcifications. Lungs and Pleura: The central airways are patent. No suspicious pulmonarynodule. Biapical pleural-parenchymal scarring. No pleural effusions orsuspicious thickening. Musculoskeletal and Body Wall: No aggressive osseous findings.Intracanalicular spinal stimulator leads. Abdomen/Pelvis: Solid Abdominal Organs: No suspicious focal hepatic mass. Priorcholecystectomy. Intra and extrahepatic duct dilatation, to level of theampulla, unchanged. This may reflect postcholecystectomy ectasia. Nopancreatic duct dilatation. No peripancreatic inflammation. Normal sizespleen. No adrenal nodule. Symmetric renal enhancement. No suspicious massor hydronephrosis. GI Tract/Mesentery/Peritoneum: No bowel dilatation or transition point tosuggest obstruction. No pneumatosis or pneumoperitoneum. No suspiciousbowel wall thickening or mesenteric findings.. Pelvic Viscera: Circumferential bladder wall thickening. Priorhysterectomy. No suspicious pelvic mass. Lymph Nodes/Vasculature: Atherosclerotic abdominal aorta without aneurysm.No major abdominal vascular occlusion. No enlarged lymph nodes. Free Fluid:None. Musculoskeletal and Body Wall:No overtly suspicious mass within the vulva,to the limits of this examination. No aggressive body wall findings.Degenerative changes in the imaged spine with grade 1 degenerativeanterolisthesis of L4 on L5. Neurostimulator battery pack in the rightparaspinal region. IMPRESSION: Chest: No specific evidence for thoracic metastasis. Abdomen/Pelvis: No specific evidence for abdominal or pelvic metastasis. CRITICAL RESULT: No. COMMUNICATION: Per this written report. Drafted by Lupillo Coughlin MD on 11/28/2023 4:45 PM Final report signed by Lupillo Coughlin MD on 11/28/2023 5:01 PM us Nevaeh S Mcdonald [place] [employer] ACCOUNT EXECUTIVE IMG CT PROCEDURES Final Resu lt * HIV 1 & 2 Antibody/Antigen Screen (08/10/2021 3:31 AM EDT) HIV 1 & 2 Antibody/Anti gen Screen Nonreactive Nonreactive 08/10/2021 4:59 AM EDT [facility] Blood Venous blood specimen / Unknown Venipuncture / Unknown 08/10/2021 3:31 AM EDT 08/10/2021 3:54 AM EDT us Cameron Otero DO LAB BLOOD ORDERABLES Final Re sult Performing Organization Address City/[facility] Co de Phone Number [facility] [address] [place] [address] * Hepatitis panel, acute (08/08/2021 4:28 PM EDT) Pathologist [facility] Hepatitis B Surf Antigen Negative Negative 08/08/2021 6:29 PM EDT [facility] Hepatitis C Antibody Negative Negative 08/08/2021 6:29 PM EDT [facility] Hepatitis A Antibody IgM Negative Negative 08/08/2021 6:29 PM EDT [facility] Hepatitis B Core Antibody IgM Negative Negative 08/08/2021 6:29 PM EDT [facility] Blood Venous blood specimen / Unknown Venipuncture / Unknown 08/08/2021 4:28 PM EDT 08/08/2021 4:48 PM EDT Avni Valentine LAB BLOOD ORDERABLES Final Resul t Performing Organization Address City/[facility] Co de Phone Number [facility] [address] [place] [address] from Last 3 Months or Most Recently Relevant to Health Maintenance Insurance [facility] Advance Directives * Full Code (Latest Code Status on File) Date Activated Date Inactivated Comments 04/23/2024 12:16 PM 04/24/2024 4:00 PM Question Answer Comments Patient has decision-making capacity? Yes * Full Code Date Activated Date Inactivated Comments 08/08/2021 10:42 PM 08/14/2021 5:13 PM Question Answer Comments Patient has decision-making capacity? Yes Care Teams Office Technologist Relationship Specialty Start Date End Date Naya Goodwin APRN [address] [place] [address] PCP - General 07/11/20 Chelsey Mascorro [address] [place] [address] [place] [address] Referring Physician Gynecology 01/19/21 Yong Mata MD [address] [facility] [address] [place] [address] Surgeon Pain Medicine 05/12/21 Malena Burton APRN [id number] [place] [phone] Nurse Practitioner Urology 06/09/23
--- OUTSIDE RECORDS SUMMARY | 2024-09-21 13:03 | XMS_ITS | Encounter Summary ---
Author Organization [facility] Address [address] [place] [address] Care Team Providers Care Structural Analyst Name Role Phone Goodwin, Naya Kim IT TECHNICAL ARCHITECT Primary Care Provider + [phone] Chelsey Mascorro Unavailable Yong Mata MD Unavailable Malena Burton APRN Unavailable [phone] Encounter Details Date Type Department Care Team (Latest Contact Info) Description 08/22/2024 Travel Social History Tobacco Use Types Packs/Day Years [...] Upcoming Encounters Date Type Department Care Team ( st Contact Info) Description 09/26/2024 8:00 AM EDT Office Visit [facility] [address] [place] [address] Christy, Nevaeh S, IT TECHNICAL ARCHITECT [address] [facility] [address] [place] [address] 10/18/2024 10:20 AM EDT Office Visit [place] [facility] [address], 2nd [place] [address] Malena Burton, IT TECHNICAL ARCHITECT [address] [place] [address] 12/25/2024 2:30 PM EDT Office Visit [facility] [address] [place] [address] Nevaeh Harrison S, IT TECHNICAL ARCHITECT [address] [facility] [address] [place] [address] 03/06/2025 1:00 PM EST Clinical Support [facility] Laboratory Services [address] [facility], 1st [place] [address] 03/20/2025 11:20 AM EST Evaluation [facility] Bone & Mineral Metabolism [address] [facility], [address] [place] [address] Neil Saldana, PharmD [address] [facility] [address] [place] [address] 04/25/2025 1:30 PM EST Office Visit Medical Office Building [facility] [address] [facility], [address] [place] [address] Arnav Ibarra MD [address] [facility] [address] [place] [address] documented as of this encounter [...] documented as of this encounter Care Teams Structural Analyst Relationship Specialty Start Date End Date Naya Goodwin APRN [address] [place] [address] PCP - General 07/11/20 Chelsey Mascorro [address] [place] [address] [place] [address] Referring Physician Gynecology 01/19/21 Yong Mata MD [facility] [place] [address] Surgeon Pain Medicine 05/12/21 Malena Burton APRN [id number] [place] [address] Nurse Practitioner Urology 06/09/23 documented as of this encounter
--- OUTSIDE RECORDS SUMMARY | 2024-09-21 13:03 | XMS_ITS ---
Author Organization [facility] Address [address] [place] [address] Care Team Providers Care Correctional Officer Sergeant Name Role Phone Naya Goodwin APRN Primary Care Provider + [phone] Chelsey Mascorro Unavailable Yong Mata MD Unavailable Malena Burton APRN Unavailable [phone] Active Problems Problem Noted Date Diagnosed Date [...] Problem Code Type: ICD-9; Sciatic neuropathy 02/03/2016 Current Treatment and Therapy Plans No current plan information found. Other Current Plans Denosumab (Prolia)* Plan Start Date:08/19/2024 Plan Provider:Sana Strong MD Linked Problems Age-related osteoporosis wit hout current pathological fracture Treatment Medications No medications scheduled. Romosozumab (Evenity)* Plan Start Date:08/15/2023 Plan Provider:Sana Strong MD Linked Problems Age-related osteoporosis wit hout current pathological fracture Treatment Medications No medications scheduled. Past Treatment and Therapy Plans No past plan information found. Lifetime Dose Tracking * Chemical Lifetime Dose Automatic Entry Manual Entr y Fluoro Time 2.27 minutes 2.27 minutes 0 minutes Air Kerma 40.6 mGy 40.6 mGy 0 mGy Resolved Problems Problem Noted Date Diagnosed Date Resolved Date Spondylolisthesis of lumbar region 01/16/2024 08/14/2024 Vulvar cancer 07/13/2019 08/08/2021 Overview (08/08/2021): Malignant neoplasm of vulva, unspecified DDD (degenerative disc disease), lumbar 03/07/2015 08/08/2021 Low back pain 01/20/2015 08/08/2021
--- OUTSIDE RECORDS SUMMARY | 2024-09-21 13:03 | XMS_ITS | Encounter Summary ---
Author Organization [facility] Address [address] [place] [address] Care Team Providers Care Early Childhood Education Coordinator Name Role Phone Naya Goodwin ANCHOR TACKER Primary Care Provider [phone] Chelsey Mascorro Unavailable Yong Mata MD Unavailable Malena Burton APRN Unavailable [phone] Encounter Details Date Type Department Care Team (Late st Contact Info) Description 08/06/2024 Telephone [facility] [address] [facility], [address] [place] [address] Betsy Soares Social History Tobacco [...] Telephone Encounter - Betsy Soares - 08/06/2024 1:15 PM EDT Patient called me back, she is going to do walk in labs on 08/08. documented in this encounter Plan of Treatment Upcoming Encounters Date Type Department Care Team (Late st Contact Info) Description 09/26/2024 8:00 AM EDT Office Visit [facility] Gynecology [address] [place] [phone] ChristyNevaeh romero S, ANCHOR TACKER [address] [facility] [address] [facility] [address] [place] [address] 10/18/2024 10:20 AM EDT Office Visit [facility] [address], [address] [place] [address] Malena Burton, ANCHOR TACKER [address] [place] [address] 12/25/2024 2:30 PM EDT Office Visit [facility] Gynecology [address] [place] [address] Nevaeh Harrison S, ANCHOR TACKER [address] [facility] [address] [facility] [address] [place] [address] 03/06/2025 1:00 PM EST Clinical Support [facility] Laboratory Services [address] [facility], 1st [place] [address] 03/20/2025 11:20 AM EST Evaluation [facility] Bone & Mineral Metabolism [address] [facility], [address] [place] [address] Neil Saldana, PharmD [address] [facility] [address] [place] [address] 04/25/2025 1:30 PM EST Office Visit Medical Office Building [facility] [address], [address] [place] [address] Arnav Ibarra MD [address] [place] [address] documented as of this encounter [...] documented as of this encounter Care Teams Early Childhood Education Coordinator Relationship Specialty Start Date End Date Naya Goodwin, NATALIE [address] [place] [address] PCP - General 07/11/20 Chelsey Mascorro [address] [place] [address] [place], [place] [phone] Referring Physician Gynecology 01/19/21 Yong Mata MD [facility] [place], [place] [id number] Surgeon Pain Medicine 05/12/21 Malena Burton, ANCHOR TACKER [address] [place] [address] Nurse Practitioner Urology 06/09/23 documented as of this encounter
--- OUTSIDE RECORDS SUMMARY | 2024-09-21 13:03 | XMS_ITS | Encounter Summary ---
Author Organization [facility] Address [address] [place] [address] Care Team Providers Care Chief Gauger Name Role Phone Goodwin Naya Kim ENGINEERING FACULTY MEMBER Primary Care Provider + [phone] Chelsey Mascorro Unavailable Yong Mata MD Unavailable Malena Burton APRN Unavailable [phone] Reason for Visit * Reason Comments Med Refill Encounter Details Date Type Department Care Team (Late st Contact Info) Description 08/09/2024 Refill [facility] [address], [address] [place] [address] Malena Burton, ENGINEERING FACULTY MEMBER [address] [place] [address] Social History Tobacco Use Types Packs/Day Years [...] Description 09/26/2024 8:00 AM EDT Office Visit [facility] Gynecology [address] [place] [address] [place], Nevaeh S, ENGINEERING FACULTY MEMBER [address] [facility] [address] [place] [address] 10/18/2024 10:20 AM EDT Office Visit [facility] [address], [address] [place] [address] Malena Burton, ENGINEERING FACULTY MEMBER [address] [place] [address] 12/25/2024 2:30 PM EDT Office Visit [facility] Gynecology [address] [place] [address] [place], Nevaeh S, ENGINEERING FACULTY MEMBER [address] [facility] [address] [place] [address] 03/06/2025 1:00 PM EST Clinical Support [facility] Laboratory Services [address] [facility], 1st [place] [address] 03/20/2025 11:20 AM EST Evaluation [facility] Bone & Mineral Metabolism [address] [facility], [address] [place] [address] Neil Saldana, PharmD [address] [facility] [address] [place] [address] 04/25/2025 1:30 PM EST Office Visit Medical Office Building Surgery Sp[facility] Joint [address] [facility], [address] [place] [address] Arnav Ibarra MD [address] [facility] [address] [place] [address] documented as of this encounter [...] documented as of this encounter Care Teams Chief Gauger Relationship Specialty Start Date End Date Naya Goodwin, ENGINEERING FACULTY MEMBER [address] [place] [address] PCP - General 07/11/20 Chelsey Mascorro [address] [place] [address] [place] [address] Referring Physician Gynecology 01/19/21 Yong Mata MD [facility] [address] [place] [address] Surgeon Pain Medicine 05/12/21 Malena Burton, ENGINEERING FACULTY MEMBER [address] [facility] [address] [place] [address] Nurse Practitioner Urology 06/09/23 documented as of this encounter
--- OUTSIDE RECORDS SUMMARY | 2024-09-21 13:03 | XMS_ITS | Encounter Summary ---
Author Organization [facility] Address [address] [place] [id number] Care Team Providers Care Ladle Operator Name Role Phone Naya Goodwin FIBROUS PLASTERER Primary Care Provider + [phone] Chelsey Mascorro Unavailable Yong Mata MD Unavailable Malena Burton FIBROUS PLASTERER Unavailable [phone] Encounter Details Date Type Department Care Team (Late st Contact Info) Description 08/29/2024 Telephone [facility] [address] [place] [address] Nevaeh Harrison, FIBROUS PLASTERER [address] [facility] [address] [place] [address] Social History Tobacco Use Types Packs/Day Years [...] encounter Miscellaneous Notes * Telephone Encounter - Luciano Barrios - 08/29/2024 1:51 PM EDT Patient called wanting an appointment for her UTI but you currently don't have any openings. I suggest to the patient maybe going to her PCP but she declined. She wants to know if you would call something in to her pharmacy. documented in this encounter Plan of Treatment Upcoming Encounters Date Type Department Care Team (Late st Contact Info) Description 09/26/2024 8:00 AM EDT Office Visit [facility] Gynecology [address] [place] [address] Nevaeh Harrison, FIBROUS PLASTERER [address] [facility] [address] [place] [address] 10/18/2024 10:20 AM EDT Office Visit [facility] [address], [address] [place] [address] Malena Burton, FIBROUS PLASTERER [address] [place] [place] [address] [place] [address] 12/25/2024 2:30 PM EDT Office Visit [facility] Gynecology [address] [place] [address] Nevaeh Harrison, FIBROUS PLASTERER [address] [facility] [address] [place] [address] 03/06/2025 1:00 PM EST Clinical Support [facility] Laboratory Services [address] [facility], 1st [place] [address] 03/20/2025 11:20 AM EST Evaluation [facility] Bone & Mineral Metabolism [address] [facility], [address] [place] [address] Neil Saldana, PharmD [address] [facility] [address] [place] [address] 04/25/2025 1:30 PM EST Office Visit Medical Office Building Surgery [facility] [address] [facility], [address] [place] [address] Arnav Ibarra MD [address] [facility] [address] [place] [address] documented as of this encounter [...] documented as of this encounter Care Teams Ladle Operator Relationship Specialty Start Date End Date Naya Goodwin APRN [id number] PCP - General 07/11/20 Chelsey Mascorro [address] [place] [address] [place] [address] Referring Physician Gynecology 01/19/21 Yong Mata MD [address] [facility] [address] [place] [address] Surgeon Pain Medicine 05/12/21 Malena Burton APRN [address] [place] [facility] [address] [place] [address] Nurse Practitioner Urology 06/09/23 documented as of this encounter
--- OUTSIDE RECORDS SUMMARY | 2024-09-21 13:03 | XMS_ITS | Data Portability ---
Author Organization [employer] [place] - [place] Address [address] [place] [address] Assessment Encounter Date Assessment Date Assessment LastModified by Organization Details LastModified Time 09/14/2023 09/14/2023 Colonoscopy and DEXA are UTD. Not available 09/25/2023 19:09:21 Plan of Treatment Reminders Order Date Submit Date Provider Last Modified By Organization Details Last Modified Time Details Appointments None recorded. Lab rf (rheumatoid factor), serum 2024 025 [facility] [address] [place], [address], 5 09:08:15 uric acid, serum or plasma 2024 025 [facility] [address] [place], [address], 5 09:08:17 CBC w/ auto diff 2024 025 [facility] [address] [place], [address], 5 09:08:13 cobalamin and folate panel, serum 2024 025 [facility] [address] [place], [address], 5 09:08:14 CMP, serum or plasma 2024 025 [facility] [address] [place], [address], 5 09:08:14 TSH, ultra-sensi tive, serum [address] [facility]), [address] [place], [address], 5 09:08:16 vitamin D, 25-hydroxy, total, serum 2024 025 [facility] [address] [place], [address], 5 09:08:16 iron + TIBC + ferritin, serum [address] [facility]), [address] [place], [address], 5 09:08:13 HbA1c (hemoglobin A1c), blood [address] [facility]), [address] [place], [address], 5 09:08:15 rapid flu (A+B) [address], [address], 4 14:56:46 rapid SARS CoV 2 Ag, QL, IA, upper respiratory specimen [address], [address], 4 14:56:46 Referral None recorded. Procedures None recorded. Surgeries None recorded. Imaging MAMMO, screening, digital, bilateral - DUE IN OCTOBER 042023 024 [facility] (Scheduling), [address], [place], [address], 4 09:02:02 Medication Orders Diflucan 150 mg tablet 2024 025 [facility], [address] [place] [address], [address], 5 11:39:44 cyanocobala min (vit B-12) 1,000 mcg/mL injection solution 2024 025 [email or web address] Not available 5 10:37:41 promethazin e 12.5 mg tablet 2024 025 [facility], [address] [place] [address], [address], 5 09:51:25 escitalopra m 20 mg tablet 2024 025 [facility], [address] [place] [address], [address], 5 15:08:55 buspirone 10 mg tablet 2024 025 [facility], [address] [place] [address], [address], 5 16:27:43 pantoprazol e 40 mg tablet,carlos yed release 2024 025 [facility], [address] [place] [address], [address], 5 09:49:45 fluconazole 150 mg tablet 2024 025 [facility], [address] [place] [address], [address], 5 09:51:26 azithromyci n 250 mg tablet 2023 024 [facility], [address] [place] [address], [address], 5 13:49:06 albuterol sulfate HFA 90 mcg/actuati on aerosol inhaler 2023 024 [facility], [address] [place] [address], [address], 4 15:30:18 dextrometho rphan-guaif enesin 10 mg-100 mg/5 mL oral syrup 2023 025 [facility], [address] [place] [address], [address], 5 14:27:04 fluconazole 200 mg tablet 2023 025 [facility], [address] [place] [address], [address], 5 14:01:23 buspirone 10 mg tablet 2023 024 [facility], [address] [place] [address], [address], 4 16:34:42 pantoprazol e 40 mg tablet,carlos yed release 2023 024 [facility], [address] [place] [address], [address], 5 15:06:37 promethazin e 12.5 mg tablet 2023 025 [facility], [address] [place] [address], [address], 5 14:27:01 buspirone 10 mg tablet 2023 024 [facility], [address] [place] [address], [address], 5 15:06:37 escitalopra m 20 mg tablet 2023 024 [facility], [address] [place] [address], [address], 4 19:03:45 pantoprazol e 40 mg tablet,carlos yed release 2023 024 [facility], [address] [place] [address], [address], 4 13:26:09 Patient TargetsNo targets recorded. Patient InstructionsNo instructions recorded. Reason for Referral None Reported. Results Created Date Observation Date Name Description Value Unit Range Abnormal Flag Note LastModifiedBy Organization Detail LastModifiedTime 08/26/1908/27/2023 LIPID PANEL , STAND MERLIN cholesterol, total 170 mg/dL <200 normal Not Available [facility] [place] [facility] [address] [place], [address], 08/27/2023 09:14:31 08/26/19 24 08/27/2023 LIPID PANEL , STAND MERLIN HDL cholesterol 65 mg/dL > or = 50 normal Not Available [facility] [place] [facility] [address] [place], [address], 08/27/2023 09:14:31 08/26/1908/27/2023 LIPID PANEL , STAND MERLIN triglyceride s 122 mg/dL <150 normal Not Available [facility] [place] [facility] [address] [place], [address], 08/27/2023 09:14:31 08/26/1908/27/2023 LIPID PANEL , STAND MERLIN LDL-choleste rol 83 mg/dL _(lillie c) normal Refer ence range : <100 James able range <100 mg/dL for prima ry preve ntion ; <70 mg/dL for patie nts with CHD or diabe tic patie nts with > or = 2 CHD risk facto rs. LDL-C is now calcu lated using the Debra n-Hop missy perdomo n, which is a valid ated novel metho d provi ding aubrie r accur acy than the Fried sandy equat ion in the estim ation of LDL-C . Debra robertson SS et al. MARIZA. 2013; 310(1 9): 2061- 2068 (http ://ed ucati on.Qu estDi PayTangos. com/f aq/FA Q164) Not Available [facility] [place] [facility] [address], [place], [address], 08/27/2023 09:14:31 08/26/19 24 08/27/2023 LIPID PANEL , STAND MERLIN chol/HDLC ratio 2.6 (calc ) <5.0 normal Not Available [facility] [place] [facility] [address] [facility], [place], [address], 08/27/2023 09:14:31 08/26/19 24 08/27/2023 LIPID PANEL , STAND MERLIN non HDL cholesterol 105 mg/dL _(lillie c) <130 normal For patie nts with diabe ritesh plus 1 major ASCVD risk facto r, treat ing to a non-H DL-C goal of <100 mg/dL (LDL- C of <70 mg/dL ) is consi rozd marine faust optio n. Not Available [facility] [place] [facility] [address] [facility], [place], [address], 08/27/2023 09:14:31 08/26/1908/27/2023 COMPR EHENS DORIE METAB OLIC PANEL glucose 74 mg/dL 65-139 normal Non-f astin g refer ence inter aliza Not Available [facility] [place] [facility] [address] [facility], [place], [address], 08/27/2023 09:14:31 08/26/19 24 08/27/2023 COMPR EHENS DORIE METAB OLIC PANEL urea nitrogen (BUN) 15 mg/dL 7-25 normal Not Available [facility] [place] [facility] [address] [place], [address], 08/27/2023 09:14:31 08/26/19 24 08/27/2023 COMPR EHENS DORIE METAB OLIC PANEL creatinine 0.85 mg/dL 0.50-1 .05 normal Not Available [facility] [address] [place], [address], 08/27/2023 09:14:31 08/26/19 24 08/27/2023 COMPR EHENS DORIE METAB OLIC PANEL eGFR 78 mL/mi n/1.7 3m2 > or = 60 normal Not Available [facility] [address] [place], [address], 08/27/2023 09:14:31 08/26/19 24 08/27/2023 COMPR EHENS DORIE METAB OLIC PANEL BUN/creatini ne ratio SEE NOTE: (calc ) 6-22 Not Repor pablo: BUN and Creat inine are withi n refer ence range . Not Available [facility] [address] [place], [address], 08/27/2023 09:14:31 08/26/19 24 08/27/2023 COMPR EHENS DORIE METAB OLIC PANEL sodium 144 mmol/ L 135-14 6 normal Not Available [facility] [address] [place], [address], 08/27/2023 09:14:31 08/26/19 24 08/27/2023 COMPR EHENS DORIE METAB OLIC PANEL potassium 4.0 mmol/ L 3.5-5. 3 normal Not Available [facility] [address] [place], [address], 08/27/2023 09:14:31 08/26/19 24 08/27/2023 COMPR EHENS DORIE METAB OLIC PANEL chloride 107 mmol/ L 98-110 normal Not Available [facility] [address] [place], [address], 08/27/2023 09:14:31 08/26/19 24 08/27/2023 COMPR EHENS DORIE METAB OLIC PANEL carbon dioxide 28 mmol/ L 20-32 normal Not Available [facility] [address] [facility] [place], [address], 08/27/2023 09:14:31 08/26/19 24 08/27/2023 COMPR EHENS DORIE METAB OLIC PANEL calcium 9.2 mg/dL 8.6-10 .4 normal Not Available [facility] [address] [facility], [address], 08/27/2023 09:14:31 08/26/19 24 08/27/2023 COMPR EHENS DORIE METAB OLIC PANEL protein, total 6.5 g/dL 6.1-8. 1 normal Not Available [facility] [address] [facility] [place], [address], 08/27/2023 09:14:31 08/26/19 24 08/27/2023 COMPR EHENS DORIE METAB OLIC PANEL albumin 4.3 g/dL 3.6-5. 1 normal Not Available [facility] [address] [facility] [place], [address], 08/27/2023 09:14:31 08/26/19 24 08/27/2023 COMPR EHENS DORIE METAB OLIC PANEL globulin 2.2 g/dL_ (calc ) 1.9-3. 7 normal Not Available [facility] [address] [facility] [place], [address], 08/27/2023 09:14:31 08/26/19 24 08/27/2023 COMPR EHENS DORIE METAB OLIC PANEL albumin/glob ulin ratio 2.0 (calc ) 1.0-2. 5 normal Not Available [facility] [address] [place], [address], 08/27/2023 09:14:31 08/26/19 24 08/27/2023 COMPR EHENS DORIE METAB OLIC PANEL bilirubin, total 0.3 mg/dL 0.2-1. 2 normal Not Available [facility] [place] [facility] [address] [place], [address], 08/27/2023 09:14:31 08/26/19 24 08/27/2023 COMPR EHENS DORIE METAB OLIC PANEL alkaline phosphatase 74 U/L 37-153 normal Not Available [facility] [place] [facility] [address] [place], [address], 08/27/2023 09:14:31 08/26/19 24 08/27/2023 COMPR EHENS DORIE METAB OLIC PANEL AST 17 U/L 10-35 normal Not Available [facility] [address] [place], [address], 08/27/2023 09:14:31 08/26/19 24 08/27/2023 COMPR EHENS DORIE METAB OLIC PANEL ALT 16 U/L 6-29 normal Not Available [facility] [place] [facility] [address] [place], [address], 08/27/2023 09:14:31 08/26/19 24 08/27/2023 CBC (INCL UDES DIFF/ PLT) white blood cell count 6.9 thous and/u L 3.8-10 .8 normal Not Available [facility] [place] [facility] [address] [place], [address], 08/27/2023 09:14:32 08/26/19 24 08/27/2023 CBC (INCL UDES DIFF/ PLT) red blood cell count 4.04 meagan on/uL 3.80-5 .10 normal Not Available [facility] [address] [place], [address], 08/27/2023 09:14:32 08/26/19 24 08/27/2023 CBC (INCL UDES DIFF/ PLT) hemoglobin 13.2 g/dL 11.7-1 5.5 normal Not Available [facility] [place] [facility] [address] [facility] [place], [address], 08/27/2023 09:14:32 08/26/19 24 08/27/2023 CBC (INCL UDES DIFF/ PLT) hematocrit 41.6 % 35.0-4 5.0 normal Not Available [facility] [place] [facility] [address] [facility] [place], [address], 08/27/2023 09:14:32 08/26/19 24 08/27/2023 CBC (INCL UDES DIFF/ PLT) MCV 103.0 fL 80.0-1 00.0 high Not Available [facility] [place] [facility] [address] [facility] [place], [address], 08/27/2023 09:14:32 08/26/19 24 08/27/2023 CBC (INCL UDES DIFF/ PLT) MCH 32.7 pg 27.0-3 3.0 normal Not Available [facility] [place] [facility] [address] [facility] [place], [address], 08/27/2023 09:14:32 08/26/19 24 08/27/2023 CBC (INCL UDES DIFF/ PLT) MCHC 31.7 g/dL 32.0-3 6.0 low Not Available [facility] [address] [facility] [place], [address], 08/27/2023 09:14:32 08/26/19 24 08/27/2023 CBC (INCL UDES DIFF/ PLT) RDW 11.7 % 11.0-1 5.0 normal Not Available [facility] [address] [facility] [place], [address], 08/27/2023 09:14:32 08/26/19 24 08/27/2023 CBC (INCL UDES DIFF/ PLT) platelet count 200 thous and/u L 140-40 0 normal Not Available [facility] [place] [facility] [address], [place], [address], 08/27/2023 09:14:32 08/26/19 24 08/27/2023 CBC (INCL UDES DIFF/ PLT) MPV 10.9 fL 7.5-12 .5 normal Not Available [facility] [place] [facility] [address], [place], [address], 08/27/2023 09:14:32 08/26/19 24 08/27/2023 CBC (INCL UDES DIFF/ PLT) absolute neutrophils 4485 cells /uL 1500-7 800 normal Not Available [facility] [place] [facility] [address], [place], [address], 08/27/2023 09:14:32 08/26/19 24 08/27/2023 CBC (INCL UDES DIFF/ PLT) absolute lymphocytes 1891 cells /uL 850-39 00 normal Not Available [facility] [place] [facility] [address], [place], [address], 08/27/2023 09:14:32 08/26/19 24 08/27/2023 CBC (INCL UDES DIFF/ PLT) absolute monocytes 331 cells /uL 200-95 0 normal Not Available [facility] [place] [facility] [address], [place], [address], 08/27/2023 09:14:32 08/26/19 24 08/27/2023 CBC (INCL UDES DIFF/ PLT) absolute eosinophils 152 cells /uL 15-500 normal Not Available [facility] [address], [place], [address], 08/27/2023 09:14:32 08/26/19 24 08/27/2023 CBC (INCL UDES DIFF/ PLT) absolute basophils 41 cells /uL 0-200 normal Not Available [facility] [place] [facility] [address] [facility] [place], [address], 08/27/2023 09:14:32 08/26/19 24 08/27/2023 CBC (INCL UDES DIFF/ PLT) neutrophils 65 % normal Not Available [facility] [place] [facility] [address] [facility] [place], [address], 08/27/2023 09:14:32 08/26/19 24 08/27/2023 CBC (INCL UDES DIFF/ PLT) lymphocytes 27.4 % normal Not Available [facility] [place] [facility] [address] [facility] [place], [address], 08/27/2023 09:14:32 08/26/19 24 08/27/2023 CBC (INCL UDES DIFF/ PLT) monocytes 4.8 % normal Not Available [facility] [place] [facility] [address] [facility] [place], [address], 08/27/2023 09:14:32 08/26/1908/27/2023 CBC (INCL UDES DIFF/ PLT) eosinophils 2.2 % normal Not Available [facility] [place] [facility] [address] [facility] [place], [address], 08/27/2023 09:14:32 08/26/1908/27/2023 CBC (INCL UDES DIFF/ PLT) basophils 0.6 % normal Not Available [facility] [place] [facility] [address] [facility] [place], [address], 08/27/2023 09:14:32 08/26/1908/27/2023 TSH W/REF ORLIN TO FT4 TSH w/reflex to FT4 0.88 mIU/L 0.40-4 .50 normal Not Available [facility] [place] [facility] [address] [facility], [place], [address], 08/27/2023 09:14:32 08/26/19 24 08/27/2023 VITAM IN D,25- OH,TO DENNIS,I A vitamin D,25-oh,tota chase,ia 55 NG/mL 30-100 normal Vitam in D Statu s 25-OH Vitam in D: Defic iency : <20 ng/mL Insuf ficie ncy: 20 - 29 ng/mL Optim al: > or = 30 ng/mL For 25-OH Vitam in D testi ng on patie nts on D2-muniz pplem entat ion and patie nts for whom quant itati on of D2 and D3 fract ions is requi red, the [facility] Ass[facility] eD(TM ) 25-OH VIT D, (D2,D 3), LC/MS /MS is recom asad d: order code 79234 (misael ents >2yrs ). See Note 1 Note 1 For addit ional infor boogie talbert e refer to http: //[facility] jakub robertson.Genaro stDia gnost ics.c om/fa q/FAQ 199 (This link is being provi ded for infor penelope garza/ educmarine stone purpo ses only. ) Not Available [facility] [place] [facility] [address] [place] [address], [place], [address], 08/27/2023 09:14:33 08/26/19 24 08/26/2023 urina lysis , dipst ick Leukocytes Negati ve Not Available [address], [address], 08/26/2023 11:50:08 08/26/19 24 08/26/2023 urina lysis , dipst ick Nitrite negati ve Not Available [address], [address], 08/26/2023 11:50:08 08/26/19 24 08/26/2023 urina lysis , dipst ick Urobilinogen 1 Not Available [address] [place], [address], 08/26/2023 11:50:08 08/26/19 24 08/26/2023 urina lysis , dipst ick Protein Trace Not Available [address], [address], 08/26/2023 11:50:08 08/26/19 24 08/26/2023 urina lysis , dipst ick pH 5.0 Not Available [address], [address], 08/26/2023 11:50:08 08/26/19 24 08/26/2023 urina lysis , dipst ick Blood Negati ve Not Available [address], [address], 08/26/2023 11:50:08 08/26/19 24 08/26/2023 urina lysis , dipst ick Specific [place] 1.025 Not Available [address], [address], 08/26/2023 11:50:08 08/26/19 24 08/26/2023 urina lysis , dipst ick Ketone Trace Not Available [address], [address], 08/26/2023 11:50:08 08/26/19 24 08/26/2023 urina lysis , dipst ick Bilirubin Modera te Not Available [address], [address], 08/26/2023 11:50:08 08/26/19 24 08/26/2023 urina lysis , dipst ick Glucose Negati ve Not Available [address], [address], 08/26/2023 11:50:08 08/26/19 24 08/26/2023 urina lysis , dipst ick Appearance Clear Not Available [address], [address], 08/26/2023 11:50:08 08/26/19 24 08/26/2023 urina lysis , dipst ick Color Yellow Not Available [address], [address], 08/26/2023 11:50:08 02/27/20 24 02/27/2024 rapid flu (A+B) Flu A negati ve Not Available [address], [address], 02/27/2024 14:43:03 02/27/20 24 02/27/2024 rapid flu (A+B) Flu B negati ve Not Available [address], [address], 02/27/2024 14:43:03 02/27/20 24 02/27/2024 rapid SARS CoV 2 Ag, QL, IA, upper respi rator y speci men SARS CoV Ag negati ve Not Available [address], [address], 02/27/2024 14:43:07 11/03/19 24 11/01/2023 MAMMO , scree anna marie, digit al, bilat eral No observ ation record ed. [facility] [address], [place], [address], 11/04/2023 16:25:59 Result Notes None recorded. Problems Name Problem SNOMED Code Status Onset Date Resolution Date Notes Provider Name and Address Organization Details Recorded Time Major depressi on, single episode [id number] Completed 201605/19/2017 Problem Code: F32.9; Problem Code Type: ICD-10; Not Available [facility] 22:26:38 Moderate recurren t major depressi on 10082692 Completed 201611/26/2018 Problem Code: F33.1; Problem Code Type: ICD-10; Not Available [facility] 2 22:26:38 Lumbosac ral radiculo aiden [id number] Completed 201611/17/2017 Problem Code: M54.16; Problem Code Type: ICD-10; Not Available [facility] 22:26:44 Low back pain 027657252 Completed 201611/17/2017 Problem Code: 724.2; Problem Code Type: ICD-9; Naya Goodwin, PASSENGER ELEVATOR OPERATOR [address] [place] [address], [address] , [employer] 4 08:40:49 Chronic obstruct dorie pulmonar y disease 32886115 Completed 201607/11/2020 Problem Code: 496; Problem Code Type: ICD-9; Not Available [facility] 22:27:12 Influenz a 6679758 Completed 201704/08/2017 Problem Code: J10.1; Problem Code Type: ICD-10; MARY CANTOR [employer], [employer] 2 11:49:03 Influenz a with non-resp iratory manifest ation 68881559 Completed 201704/08/2017 Problem Code: 487.8; Problem Code Type: ICD-9; Not Available [facility] 22:27:11 Generali zed anxiety disorder 31883330 Completed 201708/17/2017 Problem Code: F41.1; Problem Code Type: ICD-10; Not Available [facility] 2 22:26:38 Gastroes ophageal reflux disease without esophagi tis 680294028 Completed 201711/17/2021 MARY dunn, [employer]. 11:49:03 Gastro-e sophagea l reflux disease with esophagi tis 299626847 Active 2017 Problem Code: K21.0; Problem Code Type: ICD-10; Not Available [facility] 22:27:00 Gastroes ophageal reflux disease 592012210 Completed 201707/11/2020 Problem Code: 530.81; Problem Code Type: ICD-9; Not Available [facility] 2 22:27:07 Moderate recurren t major depressi on 31273774 Active 2017 Problem Code: F33.1; Problem Code Type: ICD-10; Not Available [facility] 22:26:38 Chronic post-tra umatic stress disorder 948918230 Completed 201708/19/2017 Problem Code: F43.12; Problem Code Type: ICD-10; Not Available [facility] 22:26:38 Posttrau matic stress disorder 80234587 Active 2017 Problem Code: F43.10; Problem Code Type: ICD-10; Not Available [facility] 22:26:39 Sleep behavior finding 786225339 Completed 201711/17/2017 Not Available [facility] 2 22:26:39 Chronic pain syndrome 229658596 Active 2017 Problem Code: G89.4; Problem Code Type: ICD-10; Not Available [facility] 22:26:39 Sarah chanel nieves g Completed 201711/17/2017 MARY dunn, [employer]. 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 90810497 Completed 201707/11/2020 Problem Code: 053.12; Problem Code Type: ICD-9; Not Available [facility] 22:27:02 Organic sleep disorder 097486679 Completed 201711/17/2017 Problem Code: 327.8; Problem Code Type: ICD-9; Not Available [facility] 2 22:27:06 Asthenia 96652019 Completed 201711/17/2017 Problem Code: R53.1; Problem Code Type: ICD-10; Not Available [facility] 22:27:08 Malaise and fatigue 502850068 Completed 201711/17/2017 Problem Code: 780.79; Problem Code Type: ICD-9; Not Available [facility] 22:27:09 Hyperlip idemia screenin g Completed 201711/17/2017 Problem Code: V77.91; Problem Code Type: ICD-9; Not Available [facility] 22:27:09 Herpesvi uzma infectio n 07039603 Completed 201711/26/2018 Problem Code: A60.09; Problem Code Type: ICD-10; Not Available [facility] 22:26:37 Genital herpes simplex 39617930 Completed 201707/11/2020 Problem Code: 054.19; Problem Code Type: ICD-9; Not Available [facility] 22:27:01 Acute sinusiti s 59217955 Completed 201712/01/2017 Problem Code: J01.90; Problem Code Type: ICD-10; MARY dunn, [employer] 11:49:03 Otitis externa 4869380 Completed 201702/14/2018 Problem Code: H60.339; Problem Code Type: ICD-10; Not Available [facility] 22:26:39 Acute sinusiti s 86900571 Completed 201701/02/2018 Problem Code: J01.90; Problem Code Type: ICD-10; MARY dunn, [employer] 11:49:03 Nausea and vomiting 46732608 Completed 201702/14/2018 Problem Code: R11.2; Problem Code Type: ICD-10; Not Available [facility] 22:26:48 Acute swimmer' s ear Completed 201702/14/2018 Problem Code: 380.12; Problem Code Type: ICD-9; Not Available [facility] 22:27:04 Nausea 077136856 Completed 201811/26/2018 Problem Code: R11.0; Problem Code Type: ICD-10; Not Available [facility] 22:26:47 Generali zed abdomina l pain 663150579 Completed 201811/26/2018 Problem Code: R10.84; Problem Code Type: ICD-10; Not Available [facility] 22:26:46 Nausea and vomiting 37312463 Completed 201811/26/2018 Problem Code: R11.2; Problem Code Type: ICD-10; Not Available [facility] 22:26:47 Abdomina l bloating 342278036 Completed 201811/17/2021 Problem Code: R14.0; Problem Code Type: ICD-10; MARY dunn, [employer] 11:49:02 Generali zed anxiety disorder 79904279 Active 2018 Problem Code: F41.1; Problem Code Type: ICD-10; Not Available [facility] 22:26:38 Chronic post-tra umatic stress disorder 155434961 Completed 201811/26/2018 Problem Code: F43.12; Problem Code Type: ICD-10; Not Available [facility] [facility] 22:[facility]:38 Acute sinusiti s [id number] Completed 201811/26/2018 Problem Code: J01.90; Problem Code Type: ICD-10; MARY dunn, [employer] 11:49:03 Onycholy sis [id number] Completed 201811/26/2018 Problem Code: L60.1; Problem Code Type: ICD-10; Not Available [facility] 22:26:44 Renal angle tenderne ss [id number] Completed 201811/17/2021 Problem Code: R10.821; Problem Code Type: ICD-10; MARY CANTOR null, [employer] 2 11:49:02 Dehydrat ion [id number] Completed 201811/26/2018 Problem Code: E86.0; Problem Code Type: ICD-10; Not Available [facility] 2 22:26:38 Low blood pressure [id number] Completed 201811/26/2018 Problem Code: I95.9; Problem Code Type: ICD-10; Naya Goodwin, PASSENGER ELEVATOR OPERATOR [address] [place] [address], [address] , [employer] [facility] [employer] 5 10:24:05 Screenin g mammogra phy Completed 201811/26/2018 Problem Code: Z12.31; Problem Code Type: ICD-10; MARY DIAZR null, [employer] 2 11:49:03 Influenz a vaccine needed [id number] 06 Completed 201811/17/2021 Problem Code: Z23; Problem Code Type: ICD-10; MARY DIAZR null, [employer] 2 11:49:02 Snoring [id number] Completed 201809/24/2019 Problem Code: R06.83; Problem Code Type: ICD-10; Not Available [facility] 2 22:26:46 Hemorrho ids [id number] Completed 201809/24/2019 Problem Code: K64.9; Problem Code Type: ICD-10; Not Available [facility] 2 22:26:43 Acute sinusiti s [id number] Completed 201809/04/2019 Problem Code: J01.90; Problem Code Type: ICD-10; MARY DIAZR null, [employer] [facility] [employer] 2 11:49:03 General examinat ion of patient Completed 201907/11/2020 MARY DIAZR null, [employer] 2 11:49:03 Body mass index 20-24 - normal [id number] Active 2019 Not Available [facility] 2 22:26:59 Low blood pressure 54548017 Completed 201911/06/2019 Problem Code: I95.9; Problem Code Type: ICD-10; Naya Goodwin, PASSENGER ELEVATOR OPERATOR [address] [place], [address] , [employer] 5 10:24:05 Function al diarrhea [id number] Completed 201911/06/2019 Problem Code: K59.1; Problem Code Type: ICD-10; Not Available [facility] 2 22:26:42 Influenz a [id number] Completed 201911/17/2021 Problem Code: J10.1; Problem Code Type: ICD-10; MARY CANTOR null, [employer] 2 11:49:03 Pyrexia of unknown origin 6016482 Completed 201909/04/2019 Problem Code: R50.9; Problem Code Type: ICD-10; MARY DIAZR null, [employer] 2 11:49:03 Nausea [id number] Completed 201909/04/2019 Problem Code: R11.0; Problem Code Type: ICD-10; Not Available [facility] 2 22:26:47 Acute sinusiti s 55141289 Completed 201909/24/2019 Problem Code: J01.90; Problem Code Type: ICD-10; MARY CANTOR null, [employer] 2 11:49:03 Vitamin D deficien cy 70597443 Active 2019 Problem Code: E55.9; Problem Code Type: ICD-10; Not Available [facility] 2 22:26:38 Dysplasi a of vulva 516411021 Completed 201908/31/2021 Problem Code: N90.3; Problem Code Type: ICD-10; Not Available [facility] 2 22:26:45 Screenin g mammogra phy Completed 201911/06/2019 Problem Code: Z12.31; Problem Code Type: ICD-10; MARY RANDLENEAR null, [employer] [facility] [employer] 2 11:49:03 Current drug user [id number] Completed 201911/06/2019 Problem Code: Z79.899; Problem Code Type: ICD-10; Naya Goodwin APRN [address] [place], [address] , [employer] 4 08:41:04 Acute pansinus itis 7533815 Completed 201911/17/2021 Problem Code: J01.41; Problem Code Type: ICD-10; MARY RAZIANEAR null, [employer] 2 11:49:03 Influenz a vaccine needed [id number] 06 Completed 201912/25/2019 Problem Code: Z23; Problem Code Type: ICD-10; MARY MYNEAR null, [employer] 2 11:49:02 Low blood pressure 68266776 Completed 201908/31/2021 Problem Code: I95.9; Problem Code Type: ICD-10; Naya Goodwin APRN [address] [place], [address] , [employer] [facility] [employer] 5 10:24:05 Acute pansinus itis 7034887 Completed 201903/17/2020 Problem Code: J01.41; Problem Code Type: ICD-10; MARY RAZIANEAR null, [employer] 2 11:49:03 Tobacco dependen ce caused by cigarett es [id number] 157830 Active 2020 Problem Code: F17.210; Problem Code Type: ICD-10; Not Available [facility] 2 22:26:38 General examinat ion of patient Completed 202007/11/2020 MARY RAZIANEAR null, [employer] 2 11:49:03 Body mass index 20-24 - normal [id number] Completed 202007/11/2020 Not Available [facility] 22:26:59 Dysuria 69359544 Completed 202011/17/2021 Problem Code: R30.0; Problem Code Type: ICD-10; MARY RAZIAELIZABETH dunn, [employer] 11:49:03 Acute sinusiti s 40521871 Completed 202011/17/2021 Problem Code: J01.90; Problem Code Type: ICD-10; MARY RAZIAELIZABETH null, [employer] 11:49:03 Lumbosac ral radiculo aiden 3633894 Active 2020 Problem Code: M54.16; Problem Code Type: ICD-10; Not Available [facility] 22:27:02 Irritabl e bowel syndrome 70002873 Active 2020 Problem Code: K58.2; Problem Code Type: ICD-10; Not Available [facility] 22:26:43 Screenin g mammogra phy Completed 202011/17/2021 Problem Code: Z12.31; Problem Code Type: ICD-10; MARY RAZIAELIZABETH null, [employer] 11:49:03 Ingrowin g nail 837119758 Completed 202008/31/2021 Problem Code: L60.0; Problem Code Type: ICD-10; Not Available [facility] 22:26:43 Disorder of upper respirat ory system 383167070 Completed 202011/17/2021 Problem Code: J06.9; Problem Code Type: ICD-10; MARY CANTOR null, [employer] 2 11:49:03 Otogenic otalgia 35849543 Completed 202012/04/2021 LYNDSEY BARTLETT null, [employer] 08:50:49 Allergic rhinitis 48601539 Completed 202011/17/2021 Problem Code: J30.9; Problem Code Type: ICD-10; MARY CANTOR null, [employer] 2 11:49:03 Influenz a vaccine needed [id number] 06 Completed 202008/31/2021 Problem Code: Z23; Problem Code Type: ICD-10; MARY DIAZR null, [employer] 2 11:49:02 Benign paroxysm al position al vertigo or nystagmu s 802275585 Completed 202111/17/2021 MARY DIAZR null, [employer] 11:49:03 General examinat ion of patient Completed 202111/17/2021 MARY DIAZR null, [employer] 2 11:49:03 Acute sinusiti s 65281379 Completed 202108/31/2021 Problem Code: J01.90; Problem Code Type: ICD-10; MARY RANDLENEAR null, [employer]. 11:49:03 Dizzines s and giddines s 193981067 Completed 202108/31/2021 Problem Code: R42; Problem Code Type: ICD-10; MARY RANDLENEAR null, [employer] 2 11:49:03 Headache 15931609 Completed 202111/17/2021 Problem Code: R51; Problem Code Type: ICD-10; MARY RANDLENEAR null, [employer]. 11:49:03 Chronic fatigue syndrome 11048999 Completed 202108/31/2021 Problem Code: R53.82; Problem Code Type: ICD-10; Not Available [facility] 22:26:51 Exposure to SARS-CoV -2 Completed 202111/17/2021 Problem Code: Z20.822; Problem Code Type: ICD-10; MARY RAZIANEAR null, [employer] [facility] [employer] 2 11:49:03 Dizzines s and giddines s 517904155 Completed 202111/17/2021 Problem Code: R42; Problem Code Type: ICD-10; MARY RAZIANEAR null, [employer] 2 11:49:03 Acute non-supp urative serous otitis media 969799194 Completed 202111/17/2021 Problem Code: H65.01; Problem Code Type: ICD-10; MARY MYNEAR null, [employer] [facility] [employer] 2 11:49:03 Influenz a [id number] Completed 202108/31/2021 Problem Code: J10.1; Problem Code Type: ICD-10; MARY MYNEAR null, [employer] 2 11:49:03 Choleste rol screenin g Completed 202108/31/2021 MARY RAZIANEAR null, [employer] 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 5 10:24:05 Pyrexia of unknown origin 0826818 Completed 202111/17/2021 Problem Code: R50.9; Problem Code Type: ICD-10; MARY MYNEAR null, [employer] 2 11:49:03 Tick-bor ne relapsin g fever 69526469 Completed 202111/17/2021 Problem Code: A68.1; Problem Code Type: ICD-10; MARY MYNEAR null, [employer] 2 11:49:02 Low blood pressure 70903558 Active 2024 Problem Code: I95.9; Problem Code Type: ICD-10; Naya Goodwin APRN [address] [place] [address], [address] [place] [address] , [employer] 10:24:05 Fatigue 87795041 Active 2024 Naya Goodwin APRN [address] [place] [address], [address] [place] [address] , [employer] 10:25:57 Candidia sis of vagina 70730345 Active 2024 Naya Goodwin APRN [address] [place] [address], [address] [place] [address] , [employer] [facility] [employer] 10:26:24 Pain of joint 85778750 Active 2024 Naya Goodwin APRN [address] [place] [address], [address] [place] [address] , [facility] [facility] 10:28:05 Cobalami n deficien cy 566480084 Active 2024 Naya Goodwin APRN [address] [place] [address], [address] [place] [address] , [facility] 10:28:44 Problem Notes None recorded. Procedures Surgical History Date Name Laterality Status Provider Name and Address Organization Details Recorded Time 11/01/19 24 Most Recent Mammogram completed [employer] 12/12/2023 11:29:34 09/29/19 23 Date of Last Pap Smear completed [facility] [employer] 04/04/2023 14:50:35 04/05/19 23 Suture/Staple removal completed Naya Goodwin APRN [address] [place] [address], [address], [employer] 04/05/2022 09:45:46 03/25/19 21 Tlh uterus 250 g or less completed Not Available [employer] 11/03/2021 22:56:26 06/07/19 19 cholecystectomy completed Not Available [employer] 11/03/2021 22:56:26 Hysterectomy completed [employer] 11/17/2021 11:54:15 Appendectomy completed [employer] 11/17/2021 11:54:25 Imaging Results None recorded. Procedure Notes None recorded. Medical Equipment None Reported. Allergies Allergen ID Allergen Name Allergen Category Reaction Reaction Severity Criticality Documentation Date Start Date Code Code System Note Provider Name and Address Organization Details Recorded Time 42656 Product containin g penicilli n (product) medicatio n Not available Not available Not available 11/03/2021 92457 8001 SNOMED LYNDSEYESPERANZA dunn [employer] 08:48:34 91531 sulfameth oxazole medicatio n Not available Not available Not available 11/03/2021 78659 RxNorm Not Available [facility] 2 22:57:14 30556 Chantix medicatio n Not available Not available Not available 11/03/2021 15320 0 RxNorm Not Available [facility] 2 22:57:14 Medications Name Sig Start Date Stop Date Status Note LastModified by Organization Details LastModified Time cyclobenzap rine 10 mg tablet Take 1 tablet(s) by mouth tid as needed 03/25 completed Not Available Not Available Not Available fluconazole 100 mg tablet TAKE 1 TABLET EVERY DAY BY ORAL ROUTE while taking antibioit ics 02/26 completed Not Available Not Available Not Available methocarbam ol 500 mg tablet active Not Available Not Available Not Available Bromfed DM 2 mg-30 mg-10 mg/5 mL oral syrup Take 10 mL every 4-6 hours by oral route as needed. 12/21 completed Not Available Not Available Not Available bupropion HCl SR 150 mg tablet,12 hr sustained-r elease take 1 tablet (150 mg) by oral route 2 times per day 06/13 completed Not Available Not Available Not Available venlafaxine ER 75 mg capsule,ext ended release 24 hr take 1 capsule (75 mg) by oral route once daily 12/04 completed Not Available Not Available Not Available doxycycline hyclate 100 mg capsule TAKE 1 CAPSULE BY MOUTH TWICE DAILY FOR 7 DAYS 03/16 completed Not Available Not Available Not Available Carafate 1 gram tablet take 1 tablet (1 gram) by oral route 3 times per day on an empty stomach 11/17 completed Not Available Not Available Not Available azithromyci n 250 mg tablet take 2 tablets (500 mg) by oral route once daily for 1 day then 1 tablet (250 mg) by oral route once daily for 4 days 04/03 completed Not Available Not Available Not Available Lidocaine Viscous 2 % mucosal solution apply qid to lesions 11/07 completed Not Available Not Available Not Available fluconazole 150 mg tablet TAKE ONE TABLET BY MOUTH now and again in 3 days active Not Available Not Available No t Available valacyclovi r 1 gram tablet Take 1 tablet(s) by mouth q8h for 7 days 10/12 completed Not Available Not Available Not Available hydrocodone 5 mg-acetamin ophen 325 mg tablet Take 1 tablet by mouth every 6 hours as needed 03/25 completed Not Available Not Available Not Available fluconazole 200 mg tablet Take 1 tablet every day by oral route for 3 days. 04/03 completed Not Available Not Available Not Available promethazin e 12.5 mg tablet TAKE ONE TABLET BY MOUTH EVERY 8 HOURS NEEDED FOR NAUSEA active Not Available Not Available No t Available phenazopyri dine 200 mg tablet Take 1 tablet 3 times a day by oral route as needed for 3 days. 03/31 completed Not Available Not Available Not Available Nicoderm CQ 21 mg/24 hr daily transdermal patch Apply 1 patch(es) to hairless area on upper arms daily Remove after 24 hours. 06/06 completed Not Available Not Available Not Available ondansetron HCl 4 mg tablet TAKE 1 TABLET BY MOUTH EVERY 8 HOURS NEEDED FOR NAUSEA 12/21 completed Not Available Not Available Not Available famotidine 40 mg tablet TAKE ONE TABLET BY MOUTH EVERY DAY active Not Available Not Available No t Available Medrol ([place]) 4 mg tablets in a dose pack take by oral route as directed per package instructi ons 04/13 completed Not Available Not Available Not Available prednisone 20 mg tablet TAKE 1 TABLET BY MOUTH TWICE DAILY FOR 5 DAYS 02/26 completed Not Available Not Available Not Available clonazepam 0.5 mg tablet 1 pill po BID prn anxiety 12/21 completed Not Available Not Available Not Available midodrine 5 mg tablet take 1 tab by oral route 3 times per day for BP 11/17 completed Not Available Not Available Not Available metronidazo le 500 mg tablet Take 1 tablet every 8 hours by oral route with meals for 7 days. 12/04 completed Not Available Not Available Not Available dextrometho liida enesin 10 mg-100 mg/5 mL oral syrup Take 10 mL every 6 hours by oral route as needed, for cough. 04/03 completed Not Available Not Available Not Available tretinoin 0.05 % topical cream APPLY CREAM TOPICALLY TO AFFECTED AREA AT BEDTIME active Not Available Not Available No t Available ciprofloxac in 500 mg tablet Take 1 tablet twice a day by oral route for 10 days. 03/31 completed Not Available Not Available Not Available Tamiflu 75 mg capsule Take 1 capsule(s ) by mouth bid for 5 days 04/29 completed Not Available Not Available Not Available tramadol 50 mg tablet 1 pill po q 12 hours prn severe pain active Not Available Not Available No t Available ketorolac 30 mg/mL (1 mL) injection solution Inject 1 mL every day by intramusc ular route. 06/30 completed Not Available Not Available Not Available Zantac 150 mg tablet Take 1 tablet(s) by mouth at daily 02/11 completed Not Available Not Available Not Available nystatin-tr iamcinolone 100,000 unit/gram-0 .1 % topical ointment 09/13 completed Not Available Not Available Not Available Zofran 8 mg tablet Take one by mouth every 8 hours as needed for nausea/vo miting 08/19 completed Not Available Not Available Not Available Proctofoam 1 % topical Use TID x 1 week for hemorrhoi ds rectally 05/01 completed Not Available Not Available Not Available dicyclomine 20 mg tablet Take 1 tablet 4 times a day by oral route with meals. 12/04 completed Not Available Not Available Not Available phenazopyri dine 100 mg tablet Take 1 tablet 3 times a day by oral route for 2 days. 08/25 completed Not Available Not Available Not Available Nicoderm CQ 14 mg/24 hr daily transdermal patch Apply 1 patch(es) to hairless area on upper arms daily Remove after 24 hours. 09/04 completed Not Available Not Available Not Available doxycycline monohydrate 100 mg capsule take 1 capsule (100 mg) by oral route 2 times per day 03/01 completed Not Available Not Available Not Available hyoscyamine 0.125 mg disintegrat ing tablet Dissolve 1 to 2 tablet(s) by mouth q4h 12/14 completed Not Available Not Available Not Available hydrocodone 7.5 mg-acetamin ophen 325 mg tablet Take 1 tablet 3 times a day by oral route as needed for 30 days. 08/25 completed Not Available Not Available Not Available cephalexin 500 mg capsule 08/13 completed Not Available Not Available Not Available pantoprazol e 40 mg tablet,carlos yed release TAKE ONE TABLET BY MOUTH ONCE DAILY active Not Available Not Available No t Available cyanocobala min (vit B-12) 1,000 mcg/mL injection solution Inject 1 mL every month by subcutane ous route. 2024 active Not Available Not Available Not Avai lable nitrofurant oin macrocrysta l 100 mg capsule Take 1 capsule twice a day by oral route with meal(s) for 10 days, for UTI. 08/25 completed Not Available Not Available Not Available nystatin 100,000 unit/gram topical cream 08/24 completed Not Available Not Available Not Available buspirone 10 mg tablet TAKE 4 TABLETS BY MOUTH EVERY MORNING for IBS active Not Available Not Available No t Available promethazin e 25 mg/mL injection solution Take 1 mL by injection route. 12/04 completed Not Available Not Available Not Available promethazin e 25 mg tablet one tablet every 8 hours as needed for N/V 08/13 completed Not Available Not Available Not Available ibuprofen 400 mg tablet active Not Available Not Available Not Available betamethaso ne dipropionat e 0.05 % topical cream apply a thin layer to the affected area(s) by topical route 2 times per day 09/23 completed Not Available Not Available Not Available gabapentin 300 mg capsule active Not Available Not Available Not Available sertraline 25 mg tablet Take 1 tablet every day by oral route. 09/27 completed Not Available Not Available Not Available diclofenac sodium 75 mg tablet,carlos yed release 09/27 completed Not Available Not Available Not Available hydrocortis one 2.5 % topical cream 09/13 completed Not Available Not Available Not Available diclofenac sodium 50 mg tablet,carlos yed release Take 1 tablet(s) by mouth bid 04/25 completed Not Available Not Available Not Available estradiol 0.5 mg tablet Take 1 tablet every day by oral route for 30 days. 04/03 completed Not Available Not Available Not Available ergocalcife rol (vitamin D2) 1,250 mcg (50,000 unit) capsule take 1 capsule (50,000 unit) by oral route once weekly 03/24 completed Not Available Not Available Not Available lorazepam 1 mg tablet Take 1 tablet every day by oral route for 30 days. active Not Available Not Available No t Available Varivax (PF) 1,350 unit/0.5 mL subcutaneou s suspension Administe r IM as directed once. 11/27 completed Not Available Not Available Not Available ibuprofen 600 mg tablet 09/27 completed Not Available Not Available Not Available oxycodone-a cetaminophe n 7.5 mg-325 mg tablet active Not Available Not Available Not Available albuterol sulfate HFA 90 mcg/actuati on aerosol inhaler Inhale 2 puffs every 4 hours by inhalatio n route. active Not Available Not Available No t Available Colestid 1 gram tablet take 1 tablet (1 gram) by oral route 2 times per day swallowin g whole with any liquid. Do not crush, chew and/or divide. 09/23 completed Not Available Not Available Not Available ondansetron 4 mg disintegrat ing tablet 4 mg orally every 8 hours As Needed for nausea and vomiting for 4 days 08/24 completed Not Available Not Available Not Available cefdinir 300 mg capsule TAKE 1 CAPSULE BY MOUTH TWICE DAILY FOR 7 DAYS 05/05 completed Not Available Not Available Not Available fluticasone propionate 50 mcg/actuati on nasal spray,suspe nsion INSTILL ONE SPRAY IN EACH NOSTRIL TWICE DAILY active Not Available Not Available No t Available doxycycline hyclate 100 mg tablet 11/17 completed Not Available Not Available Not Available calcitriol 0.25 mcg capsule active Not Available Not Available Not Available naproxen 500 mg tablet 500 mg orally twice a day for 5 days 09/27 completed Not Available Not Available Not Available diazepam 5 mg tablet 08/24 completed Not Available Not Available Not Available oxycodone 5 mg tablet active Not Available Not Available No t Available neomycin-po lymyxin-hyd rocort 3.5 mg-10,000 unit/mL-1 % ear drops,susp 3 drops in right ear TID x 7 days 02/11 completed Not Available Not Available Not Available escitalopra m 10 mg tablet Take 1 tablet every day by oral route. 09/13 completed Not Available Not Available Not Available escitalopra m 20 mg tablet TAKE ONE TABLET BY MOUTH ONCE DAILY active Not Available Not Available No t Available Premarin 0.625 mg/gram vaginal cream Apply a thin layer to affected area twice daily x 1 month active Not Available Not Available No t Available Abilify 5 mg tablet take 1 tablet (5 mg) by oral route once daily 09/23 completed Not Available Not Available Not Available bupropion HCl XL 150 mg 24 hr tablet, extended release Take 1 tablet(s) by mouth daily 03/22 completed Not Available Not Available Not Available Wellbutrin XL 300 mg 24 hr tablet, extended release Take 1 tablet(s) by mouth daily 09/23 completed Not Available Not Available Not Available nitrofurant oin monohydrate /macrocryst als 100 mg capsule Take 1 capsule every 12 hours by oral route for 7 days. 05/05 completed Not Available Not Available Not Available pregabalin 150 mg capsule TAKE ONE CAPSULE BY MOUTH THREE TIMES DAILY 03/16 completed Not Available Not Available Not Available fenofibrate nanocrystal lized 145 mg tablet Take 1 tablet(s) by mouth daily 04/25 completed Not Available Not Available Not Available Havrix (PF) 1,440 WIN unit/mL intramuscul ar suspension Inject IM x 1. 03/01 completed Not Available Not Available Not Available Xifaxan 550 mg tablet Take 1 tablet 3 times a day by oral route for 14 days. 09/27 completed Not Available Not Available Not Available Suprep Bowel Prep Kit 17.5 gram-3.13 gram-1.6 gram oral solution 08/13 completed Not Available Not Available Not Available Ciclodan 8 % topical solution apply to the affected area(s) by topical route once daily preferabl y at bedtime or 8 hours before washing 03/24 completed Not Available Not Available Not Available Glydo 2 % mucosal jelly in applicator INSERT 1 APPLICATI ON INTO URETHRA IF NEEDED FOR MILD PAIN. PLEASE USE FOR VULVAR DISCOMFOR T NEEDED 02/26 completed Not Available Not Available Not Available Yuvafem 10 mcg vaginal tablet 04/03 completed Not Available Not Available Not Available Paxlovid 300 mg (150 mg x 2)-100 mg tablets in a dose pack TAKE THREE TABLETS BY MOUTH TWICE DAILY FOR 5 DAYS 12/21 completed Not Available Not Available Not Available Vitals Date Recorded Body height Body mass index (BMI) Body weight Body temperature Heart rate Oxygen saturation Oxygen saturation in Arterial blood by Pulse oximetry Systolic And Diastolic Provider Name and Address Organization Details Last Updated DateTime 5 157.48 cm 23.5 kg/m2 90318.2 6 g 98 [degF] 100 /min 94 % 94 % 83/47 mm[Hg] [employer] 5 13:48:40 Date Recorded Body height Body mass index (BMI) Body weight Body temperature Heart rate Oxygen saturation Oxygen saturation in Arterial blood by Pulse oximetry Systolic And Diastolic Provider Name and Address Organization Details Last Updated DateTime 5 157.48 cm 23.2 kg/m2 61906.2 3 g 98 [degF] 102 /min 94 % 94 % 90/59 mm[Hg] [employer] 5 10:13:50 Date Recorded Body height Body mass index (BMI) Body weight Body temperature Heart rate Oxygen saturation Oxygen saturation in Arterial blood by Pulse oximetry Systolic And Diastolic Provider Name and Address Organization Details Last Updated DateTime 4 157.48 cm 21 kg/m2 96699.4 g 97.8 [degF] 86 /min 96 % 96 % 87/45 mm[Hg] [facility] [employer] 4 08:33:04 Date Recorded Body height Body mass index (BMI) Body weight Body temperature Heart rate Oxygen saturation Oxygen saturation in Arterial blood by Pulse oximetry Systolic And Diastolic Provider Name and Address Organization Details Last Updated DateTime 4 157.48 cm 21.7 kg/m2 35099.7 7 g 98 [degF] 93 /min 95 % 95 % 78/45 mm[Hg] MARY RAZIAELIZABETH [employer] 4 11:28:51 Date Recorded Body height Body mass index (BMI) Body weight Body temperature Heart rate Oxygen saturation Oxygen saturation in Arterial blood by Pulse oximetry Systolic And Diastolic Provider Name and Address Organization Details Last Updated DateTime 4 157.48 cm 22.4 kg/m2 68351.6 7 g 98.1 [degF] 88 /min 94 % 94 % 115/70 mm[Hg] Lorna Valentine [employer] 4 14:42:02 Social History Question Answer Notes LastModified by Organizat ion Details LastModified Time Tobacco Smoking Status Former Smoker LYNDSEY dunn [employer]. 12/04/2021 08:51:44 Do You Have An Advance Directive? No Information n ot available 11/17/2021 Is Your Home Air Conditioned? Yes Information not available 11/17/2021 Do You Wear A Helmet When Biking? No Information not available 11/17/2021 Are You Blind Or Do You Have Difficulty Seeing? No Information n ot available 11/17/2021 Are You A Caregiver? No Information not available 11/17/2021 In The 14 Days Before Symptom Onset, Have You Had Close Contact With A Laboratory-confirm ed COVID-19 While That Case Was Ill? No Information n ot available 11/17/2021 In The 14 Days Before Symptom Onset, Have You Had Close Contact With A Person Who Is Under Investigation For COVID-19 While That Person Was Ill? No Information not available 11/17/2021 Have You Been To An Area Known To Be High Risk For COVID-19? No Information not available 11/17/2021 Are You Deaf Or Do You Have Serious Difficulty Hearing? No Information not available 11/17/2021 What Type Of Diet Are You Following? REGULAR Information n ot available 11/17/2021 What Is The Highest Grade Or Level Of School You Have Completed Or The Highest Degree You Have Received? CK86954-9 Information not available 11/17/2021 When Did You Quit Smoking? 1-5yearssinc elastcigaret te Information not available 11/17/2021 Are There Any Guns Present In Your Home? No Information not available 11/17/2021 Do You Have A Medical Power Of Wash Tank Tender? No Information not available 11/17/2021 What Was The Date Of Your Most Recent Tobacco Screening? 08/24/2024 Information not available 08/24/2024 What Is Your Current Pack Years? 30ormorepack years Information not available 11/17/2021 Do You Have Any Pets? Yes Information not available 11/17/2021 What Is Your Relationship Status? Information not available 11/17/2021 Do You Use Your Seat Belt Or Car Seat Routinely? Yes Information not available 11/17/2021 Do You Have Smoke And Carbon Monoxide Detectors In Your Home? Yes Information not available 11/17/2021 At What Age Did You Start Smoking Tobacco? 18 Information not available 11/17/2021 Are You Passively Exposed To Smoke? No Information no t available 11/17/2021 Are There Any Smokers In Your House? No Information not available 11/17/2021 Do You Participate In Social Media? Yes Information not available 11/17/2021 Do You Use Sunscreen Routinely? No Information not available 11/17/2021 Has Tobacco Cessation Counseling Been Provided? No Information not available 11/17/2021 How Many Years Have You Smoked Tobacco? 40 Information not available 11/17/2021 Have You Recently Traveled Abroad? No Information not available 11/17/2021 Are You Currently In School? No Information not available 11/17/2021 Do You Have Any Dietary Restrictions? No Information not available 11/17/2021 Sex: Female Functional Status Question Answer Note LastModified by [employer] Details LastModified Time Do you use any illicit or recreational drugs? No Information not available 11/17/2021 Do you or have you ever used any other forms of tobacco or nicotine? No Information not available 11/17/2021 What is your level of alcohol consumption? None Information not available 11/17/2021 Are you currently employed? No Information not available 11/17/2021 Do you have transportation difficulties? No Information not available 11/17/2021 Are you able to walk? YESWOREST Information not available 11/17/2021 Do you have difficulty doing errands alone? No Information not available 11/17/2021 Are you able to care for yourself independently? Yes Information not available 11/17/2021 Do you have difficulty dressing, bathing, grooming, or toileting? No Information not available 11/17/2021 Mental Status Question Answer Note LastModified by [employer] Details LastModified Time Do you feel stressed (tense, restless, nervous, or anxious, or unable to sleep at night)? [id number] [email or web address] Information not available 02/27/2024 Do you have difficulty concentrating, remembering or making decisions? No Information no t available 11/17/2021 Family History Relationship Description Onset Age of this Age Resolved Age Notes LastModified by Organization Details LastModified Time Father No current problems or disability [email or web address] Not available 09:44:05 Mother No current problems or disability [email or web address] Not available 09:44:05 Medical History Condition Response Emergency room visit since last appointm ent. N Acid Reflux (GERD) Y Hospitalizations N Osteoporosis Y Gynecological History Statement/Question Response Date of Last Pap Smear 09/28/2022 Most Recent Mammogram 11/01/2023 Obstetrics History GPAL:G 0 P 0 0 0 0 Immunizations Vaccine Type Date Status Note Provider Nam e and Address Organization Details Recorded Time Influenza, split virus, quadrivalent, PF 3 completed Allegra Stephens, PASSENGER ELEVATOR OPERATOR [address] [place], [address], [employer] 12/03/2022 10:26:06 COVID-19, mRNA, LNP-S, PF, 100 mcg/0.5mL dose or 50 mcg/0.25mL dose 1 completed MARY CANTOR null, [employer] 04/05/2022 09:07:25 COVID-19, mRNA, LNP-S, PF, 100 mcg/0.5mL dose or 50 mcg/0.25mL dose 1 completed MARY CANTOR null, [employer] 04/05/2022 09:07:25 Influenza, split virus, quadrivalent, preservative 8 completed Not Available [facility] 11/03/2021 22:57:21 Influenza, split virus, quadrivalent, PF 1 completed Not Available [facility] 11/03/2021 22:57:21 Influenza, split virus, quadrivalent, PF 0 completed Not Available [facility] 11/03/2021 22:57:22 Influenza, split virus, trivalent, preservative 7 completed Not Available [facility] 04/04/2023 14:24:12 Influenza, split virus, trivalent, preservative 9 completed Not Available [facility] 04/04/20[facility] 14:24:12 Hep A, adult 8 completed Not Available [facility] 11/03/2021 22:57:23 Hep A, adult 9 completed Not Available [facility] 11/03/2021 22:57:23 COVID-19, mRNA, LNP-S, PF, caprice-sucrose, 30 mcg/0.3 mL 4 completed Gabrielle Butler null, [employer] 01/27/2024 16:27:56 Influenza, split virus, trivalent, PF 4 completed Naya Goodwin APRN [address] [place] [address], [address], [employer] 12/12/2023 12:03:17 Influenza, split virus, quadrivalent, preservative 9 completed MARY MYNEAR null, [employer] 04/05/2022 09:07:25 Influenza, split virus, quadrivalent, preservative 6 completed MARY MYNEAR null, [employer] 04/05/2022 09:07:25 Influenza, MDCK, quadrivalent, PF 2 completed MARY MYNEAR null, [employer] 04/05/2022 09:07:25 COVID-19, mRNA, LNP-S, PF, 100 mcg/0.5mL dose or 50 mcg/0.25mL dose 2 completed MARY MYNEAR null, [employer] 04/05/2022 09:07:25 COVID-19, mRNA, LNP-S, PF, 100 mcg/0.5mL dose or 50 mcg/0.25mL dose 1 completed MARY MYNEAR null, [employer] 04/05/2022 09:07:25 Past Encounters Encounter ID Performer Location Encounter Start Date Encounter Closed Date Diagnosis/Indication Diagnosis SNOMED-CT Code Diagnosis ICD10 Code Diagnosis Note [id number] Naya Goodwin APRN [address] [address] 11/17/2021 10:56:02 11/17/2021 12:15:42 Abdominal pain 56525560 R10.32 Patient presents with a 4 day history of abdominal pain. Continuing conservati ve management at this time. This includes:r est eating a bland diet and avoiding alcohol until symptoms subside. Patient was advised to contact their doctor or nearest Emergency Department if they have any of the following symptoms: pain increases or moves to one location, vomiting and/or diarrhea, fever over 100.5, blood in vomit or bowel movements, weakness or dizziness, chest or back pain, cough or trouble breathing or any new/concer anna marie symptoms. [id number] Naya Goodwin [place] [address] 12/02/2021 10:17:04 12/02/2021 10:49:32 Colitis 42919148 K52.9 Promethazi ne shot given and documented in order group note 12/02/2021 [id number] Naya Goodwin [place] [address] 12/04/2021 08:45:10 12/04/2021 09:35:17 Indeterminate colitis 943631075 K52.3 [id number] Radha Morris [place] [address] 0 12/09/2021 10:49:36 12/10/2021 10:37:42 COVID-19 916558971 U07.1 [id number] Naya Goodwin [place] [address] 0 12/21/2021 10:37:19 12/21/2021 11:29:35 COVID-19 289132292 U07.1 Inst on dehydratio n and oral fluid replacemen t inst given and explained to pt. Inst fatigue could last 4-6 weeks post covid. Mild dehydration 3747926 119 108 E86.0 Drink 1 liter gatorade today [id number] Naya Goodwin [place] [address] 01/08/2022 09:44:32 01/08/2022 10:18:22 Chronic pain syndrome 587171972 G89.4 Continue current medication s Candidiasis of vagina 72 972726 B37.31 Instructed her that if vaginitis did not improve, she should follow-up with her HEEL COVERER at . Generalize d anxiety disorder 65526518 F41.1 Irritable bowel syndrome 55167448 A09 [id number] [place] [address] 04/05/2022 08:48:47 04/05/2022 09:48:08 Postoperative visit 951674401 Z09 Keep f/up appt with . Advised to avoid sexual activity for another 2-4 weeks. Monitor for vaginal d/c, bleeding or pain. Generalize d anxiety disorder 90490328 F41.1 [id number] [place] [address] 05/03/2022 15:37:05 05/03/2022 16:18:40 Chronic pain syndrome 452031987 G89.4 Continue current medication s Nausea and vomiting 1693 2000 R11.2 Continue IBS FODMAP diet. Gastroesop hageal reflux disease without esophagitis 229927587 K21.9 [id number] [place] [address] 07/28/2022 14:19:11 07/28/2022 15:20:34 Irritable bowel syndrome with diarrhea 944699041 K58.0 Add famotidine , restart course of xifaxin. Discussed with her restarting FODMAP diet, avoid caffeinate d and carbonated beverages. Probiotic over-the-c ounter daily. [id number] [place] [address] 08/13/2022 09:44:05 08/13/2022 10:51:10 Chronic post-traumatic stress disorder 253825510 F43.12 Needs appt with [facility]. [place] packet given. No med changes were made today. I spent approximat francisco 1 hour discussing coping measures with her. [id number] [place] [address] 09/06/2022 11:29:11 09/06/2022 12:03:34 Subacute and chronic vaginitis 794756587 N76.1 Obtain Sureswab. Concern that this is not vaginal candidiasi s, but rather a bacterial vaginosis or sexually transmitte d infection. Will await results of sure swab. Irritable bowel syndrome with diarrhea 436238792 K58.0 Refill phenergan for prn use. [id number] Naya Goodwin [place] [address] 09/15/2022 09:33:05 09/15/2022 11:36:18 Cough 97058110 R05.9 Acute sinusitis 71944268 J01.90 Patient likely has an acute bacterial sinusitis. Will treat as below. No signs of preseptal or orbital cellulitis , meningismu s, or neurologic changes concerning for intracrani al process. Instructed family to monitor patient closely and call office for any of these symptoms. Supportive care reviewed: raising HOB, humidifier use, saline nasal spray, rest, encourage PO fluids and monitor hydration status, infection control measures. Recommende d acetaminop hen/ibupro fen PRN pain, fever; reviewed appropriat e doses. Follow-up as below. Seasonal a llergic rhinitis 888389741 J30.2 [id number] [place] [address] 12/03/2022 09:24:43 12/03/2022 10:01:52 Administration of influenza vaccine 95121012 Z23 Dysuria 47149290 R30.0 Acute urin mayi tract infection 029472215 N39.0 Body mass index 20-24 - normal 927427424 Z68.24 [id number] Naya Goodwin [place] [address] 12/21/2022 11:27:37 12/21/2022 11:53:07 Long-term drug therapy 473539880 Z79.899 Recurrent urinary tract infection 222457923 N39.0 Recheck UA and culture today due to continued sx after antx completion . Generalize d anxiety disorder 55183690 F41.1 Chronic pain syndrome 37 9344197 G89.4 Continue current medication s [id number] Naya Goodwin [place] [address] 03/16/2023 09:00:02 03/16/2023 11:14:13 Acute urinary tract infection 941175920 N39.0 Active or passive immunization 515093279 Z23 [id number] TANIYA BLANC, [facility] [address] 03/31/2023 09:28:53 03/31/2023 10:12:40 Dysuria 80357631 R30.0 Acute urin mayi tract infection 884184712 N39.0 [id number] Naya Goodwin [place] [address] 04/04/2023 14:17:27 04/04/2023 15:40:57 Recurrent urinary tract infection 177215624 N39.0 Recurrent UTI in patient with hx of vulvar cancer (treated at ) 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 Needs Urology consult with cyctoscopy due to continued UTI over past 6 months with persistent dysuria. Complete the cefdinir. [id number] Naya Goodwin [place] [address] 05/06/2023 14:29:03 05/06/2023 15:23:46 Dysuria 23713579 R30.0 Will hold antx pending culture. Continue the diflucan and vaginal estradiol. [id number] Naya Goodwin [place] [address] 0 05/31/2023 08:35:34 05/31/2023 09:32:14 Dysuria 45411395 R30.0 Will hold antx pending culture. Continue the diflucan and vaginal estradiol. F/up with HEEL COVERER and Urology feliberto they have directed her. Degenerati on of lumbar intervertebral disc 94331228 M51.36 Keep appt with [facility] as scheduled. [id number] Naya Goodwin [address] [address] 06/06/2023 09:33:33 06/06/2023 10:27:35 Acute urinary tract infection 603744833 N39.0 Start Probioitic , continue macrobid,. Follow up with HEEL COVERER @ this week as directed. [id number] Naya Goodwin [place] [address] 07/01/2023 10:35:29 07/01/2023 11:27:28 Irritable bowel syndrome 93775652 A09 Continue buspar, lorazepam, and protonix with probioitic daily. [id number] Allegra Stephens [place] [address] 08/26/2023 11:32:11 08/26/2023 12:12:43 Low back pain 514674741 M54.50 Fatigue 50044041 R53.83 Hyperlipidemia 86832745 E78.5 Vitamin D deficiency 347 77005 E55.9 Candidiasis of vagina 72 277059 B37.31 Dysthymia 60659469 F34.1 Unintentio nal weight loss 913355224 R63.4 Body mass index 20-24 - normal 319640282 Z68.24 [id number] Naya Goodwin [place] [address] 09/14/2023 08:07:25 09/14/2023 09:04:04 Adult health examination 487301496 Z00.00 BSE reviewed and recommende d . Reviewed calcium needs, exercise, and prevention of osteoporos is . Periodic colonoscop y screening recommende d . Reviewed normal menopause and menopausal symptoms . Mammogram recommende d yearly . Moderate r ecurrent major depression 43566316 F33.1 Increase Lexapro Gastroesop hageal reflux disease without esophagitis 068561147 K21.9 Continue PPI. Irritable bowel syndrome 99404770 A09 Continue buspar, lorazepam, and protonix with probioitic daily. Screening mammography of bilateral breasts 8875582220 83054 Z12.31 [id number] Naya Goodwin [place] [id number] 12/12/2023 11:03:04 12/12/2023 11:57:18 Administration of influenza vaccine 10974572 Z23 Moderate r ecurrent major depression 03296867 F33.1 Continue Buspar and Lexapro. Low blood pressure 14779 003 I95.9 Advised on slow position changes and increasing oral hydration. I suspect her hypotensio n is due to opiod use as she denies fluid losses. Body mass index 20-24 - normal 563708729 Z68.21 Gastroesop hageal reflux disease without esophagitis 986625009 K21.9 Continue PPI. [id number] [place] [address] 02/27/2024 14:25:06 02/27/2024 15:38:04 Fever 474957357 R50.9 Acute bronchitis 2277937 2 J20.9 Cough The patient presents wet cough. The patient's condition is worsening. Based on the findings today we will begin medication therapy. Reviewed symptomati c care instructio ns, the expected course of these illnesses and explained that coughing can persist for some time. Provided precaution s for signs of worsening disease and instructio ns on contacting us if symptoms worsen. [id number] [place] [address] 04/03/2024 13:29:37 04/03/2024 15:13:33 Moderate recurrent major depression 68624425 F33.1 Continue Buspar and Lexapro. Candidiasis of vagina 72 610384 B37.31 Irritable bowel syndrome 19321509 A09 Continue buspar, lorazepam, and protonix with probioitic daily. Gastroesop hageal reflux disease without esophagitis 567068749 K21.9 Continue PPI. Body mass index 20-24 - normal 472105537 Z68.21 [id number] [place] [address] 08/24/2024 10:02:51 08/24/2024 10:34:21 Low blood pressure 45274426 I95.9 Advised on slow position changes and increasing oral hydration. I suspect her hypotensio n is due to opiod use as she denies fluid losses. Fatigue 50671433 R53.83 Healthy diet, MVI daily, adequate rest, and labs today. Candidiasis of vagina 72 868303 B37.31 Pain of joint 04350155 M 25.50 Cobalamin deficiency 190 809710 E53.8 Health Concerns Section Related Observation LastModified by Organization Detai ls LastModified Time None Recorded Concern Status LastModified by Organization Details LastModified Time None Recorded Advance Directives Directive N: Payers Insurance Date Sequence Insurance Name Policy Number Policy Rhodes Covered Member ID Rhodes Member ID Guarantor Name 08/28/2024 1 [place]MEDICARE [place]PLACEMENT HMO) [id number] Luna Tiffanie Foreman [id number] Luna Foreman 08/23/2024 [place] [facility] Luna Foreman [id number] Luna Foreman 11/17/2021 1 *SELF PAY* Ca sylkathy Kellen Notes Date Note Type Note Provider Name and Address Organization Details Recorded Time 4 text/html Annual WellnessReported by PatientSocial/Behavioral HistoryFor diet and nutrition, patient reportsdiet is high in fat, low in fiberandhigh carbohydrate mealsbut reportsdiscussed vitamin and supplement use,discussed portion control,discussed maintaining calcium balance, anddiscussed diet improvement. For physical activity, patient reportsdoes not exercise on a regular basisbut reportsdiscussed weightbearing activities. For fracture risk, patient reportsno history of fracturesandno recent explained fracture. For additional lifestyle factors, patient reportsno tobacco use,no alcohol intake, anddiscussed safe sex and sti risk.Mental Status:For depression risk, patient reportsfeels sad, empty, or tearful,loss of interest in activities,loss of energy, andhistory of depressionbut reportsno thoughts of suicide.Functional AbilityFor hearing, patient reportsno loss of hearing. For vision, patient reportsno vision problems. Anxiety/DepressionReported by PatientHPIFor severity, patient reportsinterference with activities of daily livingbut reportsdenies suicidal ideationsandable to maintain relationships. For context, patient reportschronic pain,recent medical event,family problems, andbereavement. For associated symptoms, patient reportshypersensitivity,dep ression,grieving,sleep disturbances,sleeping more (hypersomnia),social withdrawal,decreased effectiveness/productivity, andstomach crampsbut reportsdenies homicidal ideations,no significant weight gain,no significant weight loss,no visual/auditory hallucinations,no delusions, andno shortness of breath. For duration, patient reportschronic. For onset/timing, patient reportsgradual. For modifying factors, patient reportssocial supportandselective serotonin reuptake inhibitor (ssri).ROS as noted in the HPI Is followed by GI Balaji Quiñones_ for IBS and gerd. He has been out of office for the summer and she needs meds refilled. Naya Goodwin APRN [address] [place], [address], [facility] 09/25/2023 19:09:54 4 text/html Anxiety/DepressionReported by PatientHPIFor severity, patient reportsinterference with activities of daily livingbut reportsdenies suicidal ideations,able to maintain relationships, andsymptoms improved. For context, patient reportschronic pain,recent medical event,family problems, andbereavement. For associated symptoms, patient reportshypersensitivity,dep ression,grieving,sleep disturbances,social withdrawal,decreased effectiveness/productivity, andstomach crampsbut reportsdenies homicidal ideations,no significant weight gain,no significant weight loss,no visual/auditory hallucinations,no delusions, andno shortness of breath. For duration, patient reportschronic. For onset/timing, patient reportsgradual. For modifying factors, patient reportssocial supportandselective serotonin reuptake inhibitor (ssri).ROS as noted in the HPI Is followed by ELLA Quiñones_ for IBS and gerd. He has been out of office for the summer and she needs meds refilled.BP low again today - she denies fluid losses and says she is asymptomatic with this BP. Naya Goodwin APRN [address] [place], [address], [employer] 12/12/2023 12:45:01 4 text/html Upper Respiratory SymptomsReported by PatientUpper Respiratory SymptomsFor quality, patient reportsproductive cough,congested,wheezy cough,hurts to swallow, andnasal discharge. For context, patient reportsallergiesbut reportsno sick contacts,no foreign travel, andnon-smoker. For associated symptoms, patient reportschest pain,yellow sputum,shortness of breath,wheezing,fatigue,fev er,morning cough,sore throat,nausea,headache,chil ls, andmalaise. For location, patient reportschest,nasal, andears. For severity, patient reportsmoderate. For duration, patient reportssymptoms lasting less than 2 weeks. For onset/timing, patient reportsgradualanddate of onset: (02/20/24). For alleviating factors, patient reportsanalgesicsanddeconge stant.ROS as noted in the HPI c/o recent flare of chronic yeast vaginitis Naya Goodwin APRN [address] [place], [address], [employer]. 02/27/2024 15:18:03 5 text/html Anxiety/DepressionReported by PatientHPIFor severity, patient reportsinterference with activities of daily livingbut reportsdenies suicidal ideations,able to maintain relationships, andsymptoms improved. For context, patient reportschronic pain,recent medical event,family problems, andbereavement. For associated symptoms, patient reportshypersensitivity,dep ression,grieving,sleep disturbances,social withdrawal,decreased effectiveness/productivity, andstomach crampsbut reportsdenies homicidal ideations,no significant weight gain,no significant weight loss,no visual/auditory hallucinations,no delusions, andno shortness of breath. For duration, patient reportschronic. For onset/timing, patient reportsgradual. For modifying factors, patient reportssocial supportandselective serotonin reuptake inhibitor (ssri).ROS as noted in the HPI Is followed by GI - Dr Quiñones_ for IBS and geRD. Has intermittent yeast vaginitis. Naya Goodwin APRN [address] [place], [address], [employer]. 04/29/2024 21:45:06 5 text/html FatigueReported by PatientHPIFor associated symptoms, patient reportsanxietyandjoint pain without inflammation. For quality, patient reportsgeneralized. For severity, patient reportsnormal sleep patterns,normal exercise habits,normal activity, andmoderate. For duration, patient reportsacuteand<1 month. For timing, patient reportsgradual. For context, patient reportsno new stressors in lifeandsubstance use.ROS as noted in the HPI Luna complains of profound fatigue and weakness for 3 weeks. She is hypotensive but denies fluid losses and thinks she is drinking enough water. She continues to take opioids for chronic lumbar DDD. She has a vaginal yeast infection again. She has he of Vit B deficiency. Naya Goodwin, NATALIE [address] [place] [address], [address], [facility] [employer] 08/26/2024 15:35:43 OBGyn Episode No OBEpisode recorded.
--- OUTSIDE RECORDS SUMMARY | 2024-09-21 13:03 | XMS_ITS | Encounter Summary ---
Author Organization [facility] Address [address] [place] [address] Care Team Providers Care Elevator Worker Name Role Phone Naay Goodwin REPORTS DEVELOPER Primary Care Provider + [phone] Chelsey Mascorro Unavailable Yong Mata MD Unavailable Malena Burton APRN Unavailable +[phone] Encounter Details Date Type Department Care Team (Late Contact Info) Description 05/10/2023 Orders Only External Location [address] [place] [address] Provider, External Social History Tobacco Use Types Packs/Day Years Used Date Smoking Tobacco: Former Cigarettes 1 35 0 04/1985 - 04/2020 Passive Smoke Exposure: Past Smokeless Tobacco: Never Alcohol Use Standard Drinks/Week Comments No 0 (1 standard drink = 0.6 oz pur e alcohol) PHQ-2 Answer Date Recorded Patient Health Questionnaire-2 Score 0 04/15/2023 PHQ-2A Answer Date Recorded Patient Health Questionnaire-2 Score 0 01/05/2023 Comments No Sex and Gender Information Value Date Recorded Sex Assigned at Female 03/05/2022 11:33 AM EST Legal Sex Female 7:47 PM EDT Gender Identity Female 03/05/2022 11:33 AM EST Sexual Orientation Not on file documented as of this encounter Plan of Treatment Upcoming Encounters Date Type Department Care Team (Late Contact Info) Description 09/26/2024 8:00 AM EDT Office Visit [facility] [address] [facility] [address] [place] [address] Nevaeh Harrison S, REPORTS DEVELOPER [address] [facility] [address] [place] [phone] 10/18/2024 10:20 AM EDT Office Visit [facility] [address] [place] [phone] Malena Burton, REPORTS DEVELOPER [address] [place] [phone] 12/25/2024 2:30 PM EDT Office Visit [facility] [address] [place] [phone] Nevaeh Harrison S, REPORTS DEVELOPER [address] [facility] [address] [place] [phone] 03/06/2025 1:00 PM EST Clinical Support [facility] [address] 1[address] [place] [phone] 03/20/2025 11:20 AM EST Evaluation [facility] [address], [address] [place] [phone] Neil Saldana, PharmD [address] [facility] [address] [place] [address] 04/25/2025 1:30 PM EST Office Visit Medical Office Building [facility] [address], [address] [place] [address] Arnav Ibarra MD [address] [facility] [address] [place] [address] documented as of this encounter Procedures Procedure Name Priority Date/Time Associated Diagnosis Comments DEXA BONE DENSITY AXIAL SKELETON W VFA 05/10/2023 9:21 AM EDT documented in this encounter Results * Dexa Bone Density Axial Skeleton W VFA (05/10/2023 9:21 AM EDT) Anatomical Region Laterality Modality Body Radiographic Mitra ging 05/10/2023 9:21 AM EDT us External Provider IMG DXA PROCEDURES Final Resul t documented in this encounter Visit Diagnoses Not on filedocumented in this encounter Additional Health Concerns Assessment Noted Time A fall risk assessment has been complete d for the patient 04/21/2023 9:53 AM EST A Body Mass Index follow-up plan has been documented for the patient 04/21/2023 11:06 AM EST documented as of this encounter Care Teams Elevator Worker Relationship Specialty Start Date End Date Naya Goodwin APRN [address] [place], [place] [id number] PCP - General 07/11/20 Chelsey Mascorro [address] [place] [address] [place] [address] Referring Physician Gynecology 01/19/21 Yong Mata MD [address] [place], [place] [id number] [address] [place] [address] Surgeon Pain Medicine 05/12/21 Malena Burton APRN [address] [place] [phone] Nurse Practitioner Urology 06/09/23 documented as of this encounter
--- OUTSIDE RECORDS SUMMARY | 2024-09-21 13:04 | XMS_ITS | Data Portability ---
Author Organization [facility] GAYATHRI Dawson [place] [facility] Address [address] [place] [address] Care Team Providers Care Cleaning Attendant Name Role Phone BEVERLYNavinLALO Contract Management Specialist Assessment No assessment recorded. Plan of Treatment Reminders Order Date Submit Date Provider Last Modified By Organization Details Last Modified Time Details Appointments None recorded. Lab None recorded. Referral None recorded. Procedures None recorded. Surgeries None recorded. Imaging None recorded. Medication Orders Retin-A 0.05 % topical cream 025 025 [facility] #[id number], [address], [id number], 5 11:39:45 Patient TargetsNo targets recorded. Patient InstructionsNo instructions recorded. Reason for Referral None Reported. Procedures Surgical History Date Name Laterality Status Provider Name and Address Organization Details Recorded Time operation on vertebra completed Lanette Vargas [facility] 06/25/2024 11:24:36 Imaging Results None recorded. Procedure Notes None recorded. Medical Equipment None Reported. Allergies Allergen ID Allergen Name Allergen Category Reaction Reaction Severity Criticality Documentation Date Start Date Code Code System Note Provider Name and Address Organization Details Recorded Time 973311 Product containin g penicilli n (product) medicatio n Not available Not available Not available 01/23/20162012 40064 8001 SNOMED Comme nt: Creat ed By: Lidia Greenwodo;Judy fountain Date: 2012 11:16 :28 AM; Not Available [facility] 6 03:21:26 Medications Name Sig Start Date [...] ion Details LastModified Time Sunscreen Use? Yes [email or web address] Informatio n not available 06/25/2024 Tanning Bed Use No [email or web address] Informati on not available 06/25/2024 What Was The Date Of Your Most Recent Tobacco Screening? 06/25/2024 [email or web address] Information not available 06/25/2024 Sex: Unknown Functional Status None recorded. Mental Status None recorded. Family History Nothing Reported. Medical History No medical history recorded. Gynecological HistoryNo gynecological history recorded. Obstetrics History GPAL:G 0 P 0 0 0 0 Past Encounters Encounter ID Performer Location Encounter Start Date Encounter Closed Date Diagnosis/Indication Diagnosis SNOMED-CT Code Diagnosis ICD10 Code Diagnosis Note [id number] [place] [address] [place] [address] 06/25/2024 11:13:34 06/25/2024 12:56:28 Multiple benign melanocytic nevi 533995577 L81.4 L82.1 The benign nature of keratoses [...] any suspicious lesions are noted. Wrinkled skin 820776930 L98.8 The nature of the diagnosis was discussed. Rx prescribed for Rx Retin-A 0.05% topical cream, QHS. SE reviewed.U se goodrx to chart picker Rx. Seborrheic keratosis 394 761626 L82.1 The nature of the diagnosis was discussed. Benign appearing lesions.Si nce bothersome , will tx w/ LN2 (No charge).Le sions tx'ed today may persist. Milia 458155193 L72.0 The nature of the diagnosis was [...] Member ID Guarantor Name 06/25/2024 1 [place]MEDICARE REPLACEMENT HMO) [id number] Luna Foreman [id number] Luna Foreman 06/25/2024 1 *SELF PAY* Ca romero Foreman Notes Date Note Type Note Provider Name and Address Organization Details Recorded Time 06/25/2024 text/html ROS as noted in the HPI face and neck examlast seen: 10/2022hx:nonereports: multiple concernsdeclined fbse TIFFANY CARDOSO [address] [place], [address], [place] [facility] 06/25/2024 12:12:32 OBGyn Episode No OBEpisode recorded.
--- OUTSIDE RECORDS SUMMARY | 2024-09-21 13:04 | XMS_ITS | Continuity of Care Document ---
Author Organization [employer] [facility] Address [address] [place] [address] Assessment No assessment recorded. Plan of Treatment Reminders Order Date Submit Date Provider Last Modified By Organization Details Last Modified Time Details Appointments None recorded. Lab rf (rheumatoid factor), serum 2024 025 [facility] [address] [place], [address], 5 09:08:15 uric acid, serum or plasma 2024 025 [facility] [address] [place], [address], 5 09:08:17 CBC w/ auto diff 2024 025 [facility] [address] [place], [address], 5 09:08:13 cobalamin and folate panel, serum 2024 025 [facility] [address] [place], [address], 5 09:08:14 CMP, serum or plasma 2024 025 [facility] [address] [place], [address], 09:08:14 TSH, ultra-sensi tive, serum 2024 025 [facility]), [facility] [place], [address], 5 09:08:16 vitamin D, 25-hydroxy, total, serum 2024 025 [facility]), [address] [place], [address], 5 09:08:16 iron + TIBC + ferritin, serum 2024 025 [facility]), [address] [place] [address], [address], 5 09:08:13 HbA1c (hemoglobin A1c), blood 2024 025 [facility]), [address] [place] [address], [address], 5 09:08:15 Referral None recorded. Procedures None recorded. Surgeries None recorded. Imaging None recorded. Medication Orders Diflucan 150 mg tablet 2024 025 [facility], [address] [place] [address], [address], 11:39:44 cyanocobala min (vit B-12) 1,000 mcg/mL injection solution 2024 025 [email or web address] Not available 10:37:41 Patient TargetsNo targets recorded. Patient InstructionsNo instructions recorded. Reason for Referral None Reported. Problems Name Problem SNOMED Code Status Onset Date Resolution Date Notes Provider Name and Address Organization Details Recorded Time Major depressi on, single episode [id number] Completed 201605/19/2017 Problem Code: F32.9; Problem Code Type: ICD-10; Not Available [facility] 22:26:38 Moderate recurren t major depressi on 80549768 Completed 201611/26/2018 Problem Code: F33.1; Problem Code Type: ICD-10; Not Available [facility] 2 22:26:38 Lumbosac ral radiculo aiden 3741416 Completed 201611/17/2017 Problem Code: M54.16; Problem Code Type: ICD-10; Not Available [facility] 2 22:26:44 Low back pain 130878957 Completed 201611/17/2017 Problem Code: 724.2; Problem Code Type: ICD-9; Naya Goodwin, [employer] [address] [place], [address] , [employer] 4 08:40:49 Chronic obstruct mitesh pulmonar y disease 48261067 Completed 201607/11/2020 Problem Code: 496; Problem Code Type: ICD-9; Not Available [facility] 2 22:27:12 Influenz a 5880504 Completed 201704/08/2017 Problem Code: J10.1; Problem Code Type: ICD-10; MARY dunn, [employer] 2 11:49:03 Influenz a with non-resp iratory manifest ation 92259849 Completed 201704/08/2017 Problem Code: 487.8; Problem Code Type: ICD-9; Not Available [facility] 2 22:27:11 Generali zed anxiety disorder 49019903 Completed 201708/17/2017 Problem Code: F41.1; Problem Code Type: ICD-10; Not Available [facility] 2 22:26:38 Gastroes ophageal reflux disease without esophagi tis 720392636 Completed 201711/17/2021 MARY dunn, [employer] 2 11:49:03 Gastro-e sophagea l reflux disease with esophagi tis 041714643 Active 2017 Problem Code: K21.0; Problem Code Type: ICD-10; Not Available [facility] 2 22:27:00 Gastroes ophageal reflux disease 838776278 Completed 201707/11/2020 Problem Code: 530.81; Problem Code Type: ICD-9; Not Available [facility] 22:27:07 Moderate recurren t major depressi on 05377515 Active 2017 Problem Code: F33.1; Problem Code Type: ICD-10; Not Available [facility] 22:26:38 Chronic post-tra umatic stress disorder 177297400 Completed 201708/19/2017 Problem Code: F43.12; Problem Code Type: ICD-10; Not Available [facility] 22:26:38 Posttrau matic stress disorder 95872760 Active 2017 Problem Code: F43.10; Problem Code Type: ICD-10; Not Available [facility] 22:26:39 Sleep behavior finding 712961454 Completed 201711/17/2017 Not Available [facility] 22:26:39 Chronic pain syndrome 551606450 Active 2017 Problem Code: G89.4; Problem Code Type: ICD-10; Not Available [facility] 22:26:39 Sarah buchanan lucyyoanna smiley Completed 201711/17/2017 M[facility]unn [facility] 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 55493347 Completed 201707/11/2020 Problem Code: 053.12; Problem Code Type: ICD-9; Not Available [facility] 22:27:02 Organic sleep disorder 886631116 Completed 201711/17/2017 Problem Code: 327.8; Problem Code Type: ICD-9; Not Available [facility] 22:27:06 Asthenia 56463011 Completed 201711/17/2017 Problem Code: R53.1; Problem Code Type: ICD-10; Not Available [facility] 22:27:08 Malaise and fatigue 894554928 Completed 201711/17/2017 Problem Code: 780.79; Problem Code Type: ICD-9; Not Available [facility] 22:27:09 Hyperlip idemia screenin g Completed 201711/17/2017 Problem Code: V77.91; Problem Code Type: ICD-9; Not Available [facility] 22:27:09 Herpesvi uzma infectio n 01727191 Completed 201711/26/2018 Problem Code: A60.09; Problem Code Type: ICD-10; Not Available [facility] 22:26:37 Genital herpes simplex 46755548 Completed 201707/11/2020 Problem Code: 054.19; Problem Code Type: ICD-9; Not Available [facility] 22:27:01 Acute sinusiti s 39118095 Completed 201712/01/2017 Problem Code: J01.90; Problem Code Type: ICD-10; MARY dunn, [employer] 11:49:03 Otitis externa 2079035 Completed 201702/14/2018 Problem Code: H60.339; Problem Code Type: ICD-10; Not Available [facility] 22:26:39 Acute sinusiti s 69153556 Completed 201701/02/2018 Problem Code: J01.90; Problem Code Type: ICD-10; MARY dunn, [employer] 11:49:03 Nausea and vomiting 98346164 Completed 201702/14/2018 Problem Code: R11.2; Problem Code Type: ICD-10; Not Available [facility] 22:26:48 Acute swimmer' s ear Completed 201702/14/2018 Problem Code: 380.12; Problem Code Type: ICD-9; Not Available [facility] 22:27:04 Nausea 401447869 Completed 201811/26/2018 Problem Code: R11.0; Problem Code Type: ICD-10; Not Available [facility] 2 22:26:47 Generali zed abdomina l pain 912279942 Completed 201811/26/2018 Problem Code: R10.84; Problem Code Type: ICD-10; Not Available [facility] 2 22:26:46 Nausea and vomiting 01897723 Completed 201811/26/2018 Problem Code: R11.2; Problem Code Type: ICD-10; Not Available [facility] 2 22:26:47 Abdomina l bloating 935517560 Completed 201811/17/2021 Problem Code: R14.0; Problem Code Type: ICD-10; MARY dunn, [employer] 2 11:49:02 Generali zed anxiety disorder 06313653 Active 2018 Problem Code: F41.1; Problem Code Type: ICD-10; Not Available [facility] 2 22:26:38 Chronic post-tra umatic stress disorder 928367657 Completed 201811/26/2018 Problem Code: F43.12; Problem Code Type: ICD-10; Not Available [facility] 22:26:38 Acute sinusiti s 51869735 Completed 201811/26/2018 Problem Code: J01.90; Problem Code Type: ICD-10; MARY dunn, [employer] 2 11:49:03 Onycholy sis 08532853 Completed 201811/26/2018 Problem Code: L60.1; Problem Code Type: ICD-10; Not Available [facility] 2 22:26:44 Renal angle tenderne ss 819592438 Completed 201811/17/2021 Problem Code: R10.821; Problem Code Type: ICD-10; MARY dunn, [employer] 2 11:49:02 Dehydrat ion 73972590 Completed 201811/26/2018 Problem Code: E86.0; Problem Code Type: ICD-10; Not Available [facility] 2 22:26:38 Low blood pressure 12650743 Completed 201811/26/2018 Problem Code: I95.9; Problem Code Type: ICD-10; Naya Goodwin APRN [address] [place], [address] , [employer] 5 10:24:05 Screenin g mammogra phy Completed 201811/26/2018 Problem Code: Z12.31; Problem Code Type: ICD-10; MARY RAZIAELIZABETH null, [employer] 2 11:49:03 Influenz a vaccine needed 70480314048 06 Completed 201811/17/2021 Problem Code: Z23; Problem Code Type: ICD-10; MARY RAZIAELIZABETH null, [employer] 2 11:49:02 Snoring 28095254 Completed 201809/24/2019 Problem Code: R06.83; Problem Code Type: ICD-10; Not Available [facility] 2 22:26:46 Hemorrho ids 03962267 Completed 201809/24/2019 Problem Code: K64.9; Problem Code Type: ICD-10; Not Available [facility] 2 22:26:43 Acute sinusiti s 87444323 Completed 201809/04/2019 Problem Code: J01.90; Problem Code Type: ICD-10; MARY RAZIAJAYESHR null, [employer] 2 11:49:03 General examinat ion of patient Completed 201907/11/2020 MARY RAZIANEAR null, [employer] 2 11:49:03 Body mass index 20-24 - normal 786330828 Active 2019 Not Available [facility] 2 22:26:59 Low blood pressure 53413536 Completed 201911/06/2019 Problem Code: I95.9; Problem Code Type: ICD-10; Naya Goodwin APRN [address] [place], [address] , [employer]. 5 10:24:05 Function al diarrhea 07342687 Completed 201911/06/2019 Problem Code: K59.1; Problem Code Type: ICD-10; Not Available [facility] 2 22:26:42 Influenz a 4499062 Completed 201911/17/2021 Problem Code: J10.1; Problem Code Type: ICD-10; MARY RANDLEELIZABETH mona, [employer]. 2 11:49:03 Pyrexia of unknown origin 8396325 Completed 201909/04/2019 Problem Code: R50.9; Problem Code Type: ICD-10; MARY RANDLEELIZABETH null, [employer] 2 11:49:03 Nausea 346693079 Completed 201909/04/2019 Problem Code: R11.0; Problem Code Type: ICD-10; Not Available [facility] 2 22:26:47 Acute sinusiti s 96402511 Completed 201909/24/2019 Problem Code: J01.90; Problem Code Type: ICD-10; MARY RANDLEELIZABETH null, [employer] 2 11:49:03 Vitamin D deficien cy 80346054 Active 2019 Problem Code: E55.9; Problem Code Type: ICD-10; Not Available [facility] 2 22:26:38 Dysplasi a of vulva 154867137 Completed 201908/31/2021 Problem Code: N90.3; Problem Code Type: ICD-10; Not Available [facility] 2 22:26:45 Screenin g mammogra phy Completed 201911/06/2019 Problem Code: Z12.31; Problem Code Type: ICD-10; MARY RAZIAELIZABETH null, [employer] 2 11:49:03 Current drug user 635621151 Completed 201911/06/2019 Problem Code: Z79.899; Problem Code Type: ICD-10; Naya Goodwin, NATALIE [address] [place], [address] , [employer] 4 08:41:04 Acute pansinus itis 0360979 Completed 201911/17/2021 Problem Code: J01.41; Problem Code Type: ICD-10; MARY dunn, [employer] 2 11:49:03 Influenz a vaccine needed 39218078871 06 Completed 201912/25/2019 Problem Code: Z23; Problem Code Type: ICD-10; MARY CANTOR null, [employer] 2 11:49:02 Low blood pressure 15852978 Completed 201908/31/2021 Problem Code: I95.9; Problem Code Type: ICD-10; Naya Goodwin APRN [address] [place], [address] , [employer] 5 10:24:05 Acute pansinus itis 4133666 Completed 201903/17/2020 Problem Code: J01.41; Problem Code Type: ICD-10; MARY RAZIAELIZABETH null, [employer] 2 11:49:03 Tobacco dependen ce caused by cigarett es 47886306164 609298 Active 2020 Problem Code: F17.210; Problem Code Type: ICD-10; Not Available [facility] 2 22:26:38 General examinat ion of patient Completed 202007/11/2020 MARY RAZIAELIZABETH null, [employer] 2 11:49:03 Body mass index 20-24 - normal 809896600 Completed 202007/11/2020 Not Available [facility] 2 22:26:59 Dysuria 17068397 Completed 202011/17/2021 Problem Code: R30.0; Problem Code Type: ICD-10; MARY DIAZR null, [employer] 2 11:49:03 Acute sinusiti s 91086914 Completed 202011/17/2021 Problem Code: J01.90; Problem Code Type: ICD-10; MARY RANDLEJAYESHR null, [employer] 2 11:49:03 Lumbosac ral radiculo aiden 2852820 Active 2020 Problem Code: M54.16; Problem Code Type: ICD-10; Not Available [facility] 22:27:02 Irritabl e bowel syndrome 81094730 Active 2020 Problem Code: K58.2; Problem Code Type: ICD-10; Not Available [facility] 22:26:43 Screenin g mammogra phy Completed 202011/17/2021 Problem Code: Z12.31; Problem Code Type: ICD-10; MARY RANDLEJAYESHR null, [employer] 2 11:49:03 Ingrowin g nail 446737275 Completed 202008/31/2021 Problem Code: L60.0; Problem Code Type: ICD-10; Not Available [facility] 22:26:43 Disorder of upper respirat ory system 129553877 Completed 202011/17/2021 Problem Code: J06.9; Problem Code Type: ICD-10; MARY MYJAYESHR null, [employer] 2 11:49:03 Otogenic otalgia 83670134 Completed 202012/04/2021 LYNDSEY BARTLETT null, [employer]. 08:50:49 Allergic rhinitis 60531309 Completed 202011/17/2021 Problem Code: J30.9; Problem Code Type: ICD-10; MARY MYJAYESHR null, [employer] 2 11:49:03 Influenz a vaccine needed 89484761907 06 Completed 202008/31/2021 Problem Code: Z23; Problem Code Type: ICD-10; MARY dunn, [employer]. 11:49:02 Benign paroxysm al position al vertigo or nystagmu s 064834513 Completed 202111/17/2021 MARY CANTOR null, [employer] 2 11:49:03 General examinat ion of patient Completed 202111/17/2021 MARY CANTOR null, [employer]. 11:49:03 Acute sinusiti s 30317214 Completed 202108/31/2021 Problem Code: J01.90; Problem Code Type: ICD-10; MARY dunn, [employer] 11:49:03 Dizzines s and giddines s 224102701 Completed 202108/31/2021 Problem Code: R42; Problem Code Type: ICD-10; MARY CANTOR null, [employer]. 11:49:03 Headache 39323432 Completed 202111/17/2021 Problem Code: R51; Problem Code Type: ICD-10; MARY dunn, [employer] 11:49:03 Chronic fatigue syndrome 02055765 Completed 202108/31/2021 Problem Code: R53.82; Problem Code Type: ICD-10; Not Available [facility] 22:26:51 Exposure to SARS-CoV -2 Completed 202111/17/2021 Problem Code: Z20.822; Problem Code Type: ICD-10; MARY CANTOR null, [employer] 11:49:03 Dizzines s and giddines s 848493982 Completed 202111/17/2021 Problem Code: R42; Problem Code Type: ICD-10; MARY DIAZR null, [employer] 2 11:49:03 Acute non-supp urative serous otitis media 439507959 Completed 202111/17/2021 Problem Code: H65.01; Problem Code Type: ICD-10; MARY DIAZR null, [employer] 2 11:49:03 Influenz a 9865759 Completed 202108/31/2021 Problem Code: J10.1; Problem Code Type: ICD-10; MARY RANDLENEAR null, [employer] 2 11:49:03 Choleste rol screenin g Completed 202108/31/2021 MARY DIAZR null, [employer]. 2 11:49:36 Low blood pressure 01524954 Completed 202108/31/2021 Problem Code: I95.9; Problem Code Type: ICD-10; Naya Goodwin APRN [address] [place] [address], [address] , [employer]. 5 10:24:05 Pyrexia of unknown origin 1645048 Completed 202111/17/2021 Problem Code: R50.9; Problem Code Type: ICD-10; MARY DIAZR null, [employer] 2 11:49:03 Tick-bor ne relapsin g fever 06261882 Completed 202111/17/2021 Problem Code: A68.1; Problem Code Type: ICD-10; MARY DIAZR null, [employer] 2 11:49:02 Low blood pressure 33774196 Active 2024 Problem Code: I95.9; Problem Code Type: ICD-10; Naya Goodwin APRN [address] [place], [address] , [employer]. 5 10:24:05 Fatigue 36149253 Active 2024 Naya Goodwin APRN [address] [place] [address], [address] , [employer] 5 10:25:57 Candidia sis of vagina 56619599 Active 2024 Naya Goodwin APRN [address] [place] [address], [address] [place] [address] , [employer] 5 10:26:24 Pain of joint 26572911 Active 2024 Naya Goodwin APRN [address] [place] [address], [address] [place] [address] , [employer] 5 10:28:05 Cobalami n deficien cy 394699780 Active 2024 Naya Goodwin APRN [address] [place] [address], [address] [place] [address] , [employer] 5 10:28:44 Problem Notes None recorded. Procedures Surgical History Date Name Laterality Status Provider Name and Address Organization Details Recorded Time 11/01/19 24 Most Recent Mammogram completed [employer] 12/12/2023 11:29:34 09/29/19 23 Date of Last Pap Smear completed [employer] 04/04/2023 14:50:35 04/05/19 23 Suture/Staple removal completed Naya Goodwin APRN [address] [place] [address], [address], [employer] 04/05/2022 09:45:46 03/25/19 21 Tlh uterus 250 g or less completed Not Available [facility] 11/03/2021 22:56:26 06/07/19 19 cholecystectomy completed Not Available [facility] 11/03/2021 22:56:26 Hysterectomy completed [employer] 11/17/2021 11:54:15 Appendectomy completed [employer] 11/17/2021 11:54:25 Imaging Results None recorded. Procedure Notes None recorded. Medical Equipment None Reported. Allergies Allergen ID Allergen Name Allergen Category Reaction Reaction Severity Criticality Documentation Date Start Date Code Code System Note Provider Name and Address Organization Details Recorded Time 08253 Product containin g penicilli n (product) medicatio n Not available Not available Not available 11/03/2021 04490 8001 SNOMED LYNDSEY CHISHOLMNER [facility] [employer] [facility]. 08:48:34 12092 sulfameth oxazole medicatio n Not available Not available Not available 11/03/2021 34254 RxNorm Not Available [facility] 22:57:14 87933 Chantix medicatio n Not available Not available Not available 11/03/2021 66631 0 RxNorm Not Available [facility] 22:57:14 Medications Name Sig Start Date Stop [...] completed Not Available Not Available Not Available sully murillo enesin 10 mg-100 mg/5 mL oral syrup [...] Updated DateTime 5 157.48 cm 23.2 kg/m2 04977.2 3 g 98 [degF] 102 /min 94 % 94 % 90/59 mm[Hg] MARY CANTOR [employer] 5 10:13:50 Social History Question Answer Notes LastModified by Organizat ion Details LastModified Time Tobacco Smoking Status Former Smoker LYNDSEY dunn [employer] 12/04/2021 08:51:44 Do You Have An Advance [...] Or The Highest Degree You Have Received? [id number] Information not available 11/17/2021 When Did You Quit Smoking? 1-5yearssinc elastcigaret te Information not available 11/17/2021 Are There Any Guns Present In Your Home? No Information not available 11/17/2021 Do You Have A Medical Power Of Patient Coordinator? No Information not available 11/17/2021 What Was [...] Functional Status Question Answer Note LastModified by [employer] Details LastModified Time Do you use any [...] Mental Status Question Answer Note LastModified by [employer] Details LastModified Time Do you feel stressed (tense, restless, nervous, or anxious, or unable to sleep at night)? [id number] Information not available 02/27/2024 Do you have difficulty concentrating, remembering or making decisions? No Information no t available 11/17/2021 Family History Relationship Description Onset Age of this Age Resolved Age Notes LastModified by Organization Details LastModified Time Father No current problems or disability [email or web address] Not available 09:44:05 Mother No current problems or disability [email or web address] Not available 09:44:05 Medical History Condition Response Hospitalizations N Acid Reflux (GERD) Y Emergency room visit since last appointm ent. N Osteoporosis Y Gynecological History Statement/Question Response Date of Last Pap Smear 09/28/2022 Most Recent Mammogram 11/01/2023 Obstetrics History GPAL:G 0 P 0 0 0 0 Immunizations Vaccine Type Date Status Note Provider Nam e and Address Organization Details Recorded Time Influenza, split virus, quadrivalent, PF 3 completed Allegra Stephens, [employer] [address] [place], [address], [employer] 12/03/2022 10:26:06 COVID-19, mRNA, LNP-S, PF, 100 mcg/0.5mL dose or 50 mcg/0.25mL dose 1 completed MARY CANTOR null, [employer] 04/05/2022 09:07:25 COVID-19, mRNA, LNP-S, PF, 100 mcg/0.5mL dose or 50 mcg/0.25mL dose 1 completed MARY DIAZR null, [employer] 04/05/2022 09:07:25 Influenza, split virus, quadrivalent, preservative 8 completed Not Available [facility] 11/03/2021 22:57:21 Influenza, split virus, quadrivalent, PF 1 completed Not Available [facility] 11/03/2021 22:57:21 Influenza, split virus, quadrivalent, PF 0 completed Not Available [facility] 11/03/2021 22:57:22 Influenza, split virus, trivalent, preservative 7 completed Not Available [facility] 04/04/2023 14:24:12 Influenza, split virus, trivalent, preservative 9 completed [facility] Available [facility] 04/04/2023 14:24:12 Hep A, adult 8 completed Not Available [facility] 11/03/2021 22:57:23 Hep A, adult 9 completed Not Available [facility] 11/03/2021 22:57:23 COVID-19, mRNA, LNP-S, PF, caprice-sucrose, 30 mcg/0.3 mL 4 completed Gabrielle Butler null, [employer] 01/27/2024 16:27:56 Influenza, split virus, trivalent, PF 4 completed Naya Goodwin APRN [address] [place] [address], [address], [employer] 12/12/2023 12:03:17 Influenza, split virus, quadrivalent, preservative 9 completed MARY MYNEAR null, [employer] 04/05/2022 09:07:25 Influenza, split virus, quadrivalent, preservative 6 completed MARY MYNEAR null, [employer] 04/05/2022 09:07:25 Influenza, MDCK, quadrivalent, PF 2 completed MARY MYNEAR null, [employer] 04/05/2022 09:07:25 COVID-19, mRNA, LNP-S, PF, 100 mcg/0.5mL dose or 50 mcg/0.25mL dose 2 completed MARY MYNEAR null, [employer] 04/05/2022 09:07:25 COVID-19, mRNA, LNP-S, PF, 100 mcg/0.5mL dose or 50 mcg/0.25mL dose 1 completed MARY MYNEAR null, [employer] 04/05/2022 09:07:25 Past Encounters Encounter ID Performer Location Encounter Start Date Encounter Closed Date Diagnosis/Indication Diagnosis SNOMED-CT Code Diagnosis ICD10 Code Diagnosis Note [id number] Naya Goodwin APRN [address] [address] 08/24/2024 10:02:51 08/24/2024 10:34:21 Low blood pressure 04753974 I95.9 Advised on slow position changes and increasing oral hydration. I suspect her hypotensio n is due to opiod use as she denies fluid losses. Fatigue 11321940 R53.83 Healthy diet, MVI daily, adequate rest, and labs today. Candidiasis of vagina 72 454635 B37.31 Pain of joint 79529568 M 25.50 Cobalamin deficiency 190 121062 E53.8 Health Concerns Section Related Observation LastModified by Organization Detai ls LastModified Time None Recorded Concern Status LastModified by Organization Details LastModified Time None Recorded Payers Encounter Date Sequence Insurance Name Policy Number Policy Rhodes Covered Member ID Rhodes Member ID Guarantor Name 08/24/2024 1 [place]MEDICARE REPLACEMENT HMO) [id number] Luna Foreman [id number] Luna Foreman Notes Date Note Type Note Provider Name and Address Organization Details Recorded Time 5 text/html FatigueReported by PatientHPIFor associated symptoms, [...] of Vit B deficiency. Naya Goodwin, NATALIE [address] [facility], [place], [address], [facility] [employer] 08/26/2024 15:35:43 OBGyn Episode No OBEpisode recorded.
--- OUTSIDE RECORDS SUMMARY | 2024-09-21 13:04 | XMS_ITS | Encounter Summary ---
Author Organization [facility] Address [address] [place] [address] Care Team Providers Care Pharmacist Aide Name Role Phone GoodwinJerry morrismary ellen Kim HADOOP JAVA DEVELOPER Primary Care Provider + [phone] Chelsey Mascorro Unavailable Yong Mata MD Unavailable Malena Burton APRN Unavailable [phone] Encounter Details Date Type Department Care Team (Latest Contact Info) Description 08/14/2024 Travel Social History Tobacco Use Types Packs/Day [...] [address] [place] [address] Christy, Nevaeh S, HADOOP JAVA DEVELOPER [address] [facility] [address] [place] [id number] 10/18/2024 10:20 AM EDT Office Visit [place] [facility] [address] [place] [id number] Malena Burton, HADOOP JAVA DEVELOPER [address] [place] [address] 12/25/2024 2:30 PM EDT Office Visit [facility] [address] [place] [id number] Nevaeh Harrison S, HADOOP JAVA DEVELOPER [address] [facility] [address] [place] [address] 03/06/2025 1:00 PM EST Clinical Support [facility] [place] [address] [place] [address] 03/20/2025 11:20 AM EST Evaluation [facility] [place] [address], [address] [place] [address] Neil Saldana, PharmD [address] [place] [address] 04/25/2025 1:30 PM EST Office Visit Medical Office [facility] [address], [address] [place] [address] Arnav Ibarra MD [address] [facility] [address] [place] [address] documented as of this encounter [...] documented as of this encounter Care Teams Pharmacist Aide Relationship Specialty Start Date End Date Naya Goodwin APRN [facility] [place] [address] PCP - General 07/11/20 Chelsey Mascorro [address] [place] [address] [facility] [address] Referring Physician Gynecology 01/19/21 Yong Mata MD [id number] [place] [address] Surgeon Pain Medicine 05/12/21 Malena Burton APRN [id number] [place] [address] Nurse Practitioner Urology 06/09/23 documented as of this encounter
--- OUTSIDE RECORDS SUMMARY | 2024-09-21 13:04 | XMS_ITS | Data Portability ---
Author Organization [place] [facility] Address [address] [place] [address] Care Team Providers Care Data Systems Analyst Name Role Phone DARREN GUTIERREZ Primary Care Provider DARREN GUTIERREZ Referring Provider [phone] Assessment Encounter Date Assessment Date Assessment LastModified by Organization Details LastModified Time 05/08/2024 05/08/2024 This is a pleasant 63-year-old [...] patches as she has been purchasing the [id number]-[id number] patches with great relief in symptoms. We are currently managing her with gabapentin 300 mg 3 times daily and Percocet 7.5 mg 3 times daily. Patient denies any side effects associated with these medications, she is requiring refills today. [facility] #[id number], drug screen from 03/07/2024 was reviewed and [...] these medications. She is requiring refills again. [facility] #[id number], drug screen from 03/07/2024 was reviewed and [...] these medications. She is requiring refills today. [facility] #[id number], drug screen from 03/07/2024 was reviewed and [...] done at a continuous burn of 80 C under local anesthetic only with fluoroscopy guidance. [...] pain management strategy. Not available 07/12/2024 15:01:52 08/02/2024 08/02/2024 This patient is recovering from [...] his notes. [facility] Not available 08/02/2024 17:47:17 09/06/2024 09/06/2024 This patient continues to to [...] to call in 1 month for her prescriptions. She has been very compliant [place] and drug screen are all appropriate. [facility] Not available 09/06/2024 17:36:23 Plan of Treatment Reminders Order Date Submit Date Provider Last Modified By Organization Details Last Modified Time Details Appointments Follow Up 2024 02:40P M Yong Mata MD Not available Not available Not available Lab None recorded. Referral None recorded. Procedures lumbar radiofreq uency ablation (PROC) 2024 025 [email or web address] Not available 07/17/2024 12:45:25 Surgeries None recorded. Imaging None recorded. Medication Orders lidocaine 5 % topical patch 2024 025 [facility], [address] [place], [address], 09/06/2024 17:37:48 gabapenti n 300 mg capsule 2024 025 [facility], [address] [place], [address], 09/11/2024 11:50:53 oxycodone -acetamin ophen 7.5 mg-325 mg tablet 2024 025 [facility], [address] [place], [address], 09/11/2024 11:50:52 lidocaine 5 % topical patch 2024 025 [facility], [address] [place], [address], 08/02/2024 17:49:51 gabapenti n 300 mg capsule 2024 025 [facility], [address] [place], [address], 08/13/2024 14:50:33 oxycodone -acetamin ophen 7.5 mg-325 mg tablet 2024 025 [facility], [address] [place], [address], 08/13/2024 14:50:33 lidocaine 5 % topical patch 2024 025 [facility], [address] [place], [address], 07/12/2024 16:52:54 gabapenti n 300 mg capsule 2024 025 [facility], [address] [place], [address], 07/13/2024 12:26:43 oxycodone -acetamin ophen 7.5 mg-325 mg tablet 2024 025 [facility], [address], [place], [address], 07/13/2024 12:32:46 gabapenti n 300 mg capsule 2024 025 [facility], [address] [place], [address], 06/15/2024 12:04:10 lidocaine 5 % topical patch 2024 025 [facility], [address] [place], [address], 06/14/2024 22:16:21 oxycodone -acetamin ophen 7.5 mg-325 mg tablet 2024 025 [facility], [address] [place], [address], 06/15/2024 12:04:09 gabapenti n 300 mg capsule 2024 025 [facility], [address] [place], [address], 05/11/2024 11:37:22 oxycodone -acetamin ophen 7.5 mg-325 mg tablet 2024 025 [facility], [address] [place], [address], 05/11/2024 11:37:21 lidocaine 5 % topical patch 2024 025 [facility], [address], [place], [address], 05/08/2024 19:47:48 Patient TargetsNo targets recorded. Patient InstructionsNo instructions recorded. Reason for Referral None Reported. Results Created Date Observation Date Name Description Value Unit Range Abnormal Flag Note LastModifiedBy Organization Detail LastModifiedTime Result Notes None recorded. Problems Name Problem SNOMED Code Status Onset Date Resolution Date Notes Provider Name and Address Organization Details Recorded Time Degeneratio n of lumbar interverteb ral disc 63598312 Active 2021 Yong Mata MD [address] [facility],[address], [address], [place] [facility] 2 14:44:06 Lumbar radiculopat hy 735298139 Active 2021 Yong Mata MD [address] [facility],[address], [address], [place] [facility] 2 14:44:07 Inflammatio n of sacroiliac joint 22092562 Active 2022 Yong Mata MD [address] [facility],[address], [address], [place] [facility] 3 18:31:00 Chronic pain syndrome 676304134 Active 2023 Ilana Bagley NP [address] [facility],[address], [address], [place] [facility] 4 12:23:47 Lumbar spondylosis 858738086 Active 2023 Yong Mata MD [address] [facility],[address], [address], [place] [facility] 4 14:41:57 Arthropathy of lumbar facet joint 231866187 Active 2023 Yong Mata MD [address] [facility],[address], [address], [place] [facility] 4 14:41:58 Long-term drug therapy Active 2024 TIFFANY CHASE [address] [facility],[address], [address], [place] [facility] 5 10:10:41 Continuous opioid dependence 667704887 Active 2024 TIFFANY CHASE [address] [facility],[address], [address], [place] [facility] 5 10:10:42 History of lumbar fusion 7324950229515 6 Active 2024 Yong Mata MD [address], [address], [place] [facility] 17:47:32 Problem Notes None recorded. Procedures Surgical History Date Name Laterality Status Provider Name and Address Organization Details Recorded Time 08/03/19 25 BILAT 1 level LUMBAR RFA completed Yong Mata MD [address], [address], [place] [facility] 08/02/2024 17:46:07 11/10/19 24 BILAT 1 level LUMBAR RFA completed Yong Mata MD [address] [facility],[address], [address], [place] [facility] 11/10/2023 14:55:16 09/15/19 24 Diagnostic Lumbar MBB: 1 Level Bilateral completed Yong Mata MD [address] [facility],[address], [address], [place] [facility] 09/15/2023 16:58:24 07/14/19 24 Diagnostic Lumbar MBB: 1 Level Bilateral completed Yong Mata MD [address], [address], [place] [facility] 07/14/2023 14:39:57 12/16/19 23 Diagnostic SI Joint Injection Under Fluoroscopy completed Yong Mata MD [address] [facility],[address], [address], [place] [facility] 12/15/2022 10:33:10 11/05/19 23 Diagnostic SI Joint Injection Under Fluoroscopy completed Yong Mata MD [address] [facility],[address], [address], [place] [facility] 11/04/2022 17:01:56 10/09/19 23 Lumbar JULIAN: Interlaminar completed Yong Mata MD [address],[facility], [place], [address], [place] [facility] 10/09/2022 01:37:24 05/14/19 23 Lumbar JULIAN: Interlaminar completed Yong Mata MD [address],[facility], [place], [address], [place] [facility] 05/13/2022 12:33:53 03/30/19 23 Lumbar JULIAN: Interlaminar completed Yong Mata MD [address],[facility], [place], [address], [place] [facility] 03/30/2022 16:32:14 02/03/20 22 Lumbar JULIAN: Interlaminar completed Yong Mata MD [address],[facility], [place], [address], [place] [facility] 02/11/2022 09:52:26 10/28/19 22 Lumbar JULIAN: Interlaminar completed Yong Mata MD [address],[place] [address] [place] [address], [address], [place] [facility] 10/27/2021 14:42:25 Imaging Results None recorded. Procedure Notes None recorded. Medical Equipment None Reported. Allergies Allergen ID Allergen Name Allergen Category Reaction Reaction Severity Criticality Documentation Date Start Date Code Code System Note Provider Name and Address Organization Details Recorded Time 2174 Product containin g penicilli n (product) medicatio n Not available Not available Not available 01/19/2022 78528 8001 SNOMED Mackenzie randall null, [place] - [facility] 2 08:42:19 2175 Substance with sulfonami de structure and antibacte rial mechanism of action (substanc e) medicatio n Not available Not available Not available 01/19/2022 26666 8003 SNOMED Mackenzie randall null, [place] [facility] [...] Not Available Vitals Date Recorded Body height Heart rate Respiratory rate Body mass index (BMI) Body weight Oxygen saturation Oxygen saturation in Arterial blood by Pulse oximetry Systolic And Diastolic Provider Name and Address Organization Details Last Updated DateTime 5 157.48 cm 88 /min 18 /min 23.8 kg/m2 67060.0 1 g 98 % 98 % 124/86 mm[Hg] Madelyn CASILLAS - [facility] 5 13:38:28 Date Recorded Body height Heart rate Respiratory rate Body mass index (BMI) Body weight Heart rate Oxygen saturation Oxygen saturation in Arterial blood by Pulse oximetry Pain severity - 0-10 verbal numeric rating [Score] - Reported Systolic And Diastolic Provider Name and Address Organization Details Last Updated DateTime 5 157.48 cm 88 /min 18 /min 23.8 kg/m2 34373.0 1 g 90 /min 98 % 98 % 7 124/86 mm[Hg] Madelyn Bautista [place] - [facility] 5 14:35:18 Date Recorded Body height Body mass index (BMI) Body weight Heart rate Oxygen saturation Oxygen saturation in Arterial blood by Pulse oximetry Systolic And Diastolic Provider Name and Address Organization Details Last Updated DateTime 5 157.48 cm 23.8 kg/m2 32964.0 1 g 86 /min 98 % 98 % 126/86 mm[Hg] GIL CASILLAS - [facility] 5 14:49:00 Date Recorded Body height Body mass index (BMI) Body weight Heart rate Oxygen saturation Oxygen saturation in Arterial blood by Pulse oximetry Pain severity - 0-10 verbal numeric rating [Score] - Reported Systolic And Diastolic Provider Name and Address Organization Details Last Updated DateTime 5 157.48 cm 23.8 kg/m2 93101.0 1 g 86 /min 98 % 98 % 7 126/86 mm[Hg] GIL CASILLAS - [facility] 5 13:31:18 Date Recorded Body height Body mass index (BMI) Body weight Heart rate Oxygen saturation Oxygen saturation in Arterial blood by Pulse oximetry Pain severity - 0-10 verbal numeric rating [Score] - Reported Systolic And Diastolic Provider Name and Address Organization Details Last Updated DateTime 5 157.48 cm 23.8 kg/m2 84433.0 1 g 86 /min 98 % 98 % 9 126/86 mm[Hg] GIL CASILLAS - [facility] 5 14:22:22 Social History Question Answer Notes LastModified by [facility] Details LastModified Time Tobacco Smoking Status Never Smoker SONJA Harvey - [facility] 01/19/2022 08:42:54 In The 14 Days Before Symptom Onset, Have You Had Close Contact With A Laboratory-confirm ed COVID-19 While That Case Was Ill? No [email or web address] Information n ot available 08/18/2022 In The 14 Days Before Symptom Onset, Have You Had Close Contact With A Person Who Is Under Investigation For COVID-19 While That Person Was Ill? No [email or web address] Information not available 08/18/2022 Have You Been To An Area Known To Be High Risk For COVID-19? No [email or web address] Information not available 08/18/2022 Sex: Unknown Functional Status Question Answer Note LastModified by [facility] Details LastModified Time Do you use any illicit or recreational drugs? No Information not available 01/19/2022 Do you or have you ever used any other forms of tobacco or nicotine? No Information not available 01/19/2022 What is your level of alcohol consumption? None Information not available 08/18/2022 Are you currently employed? No [email or web address] Information not available 12/20/2022 Mental Status None [...] Thyroid Problems N Anemia N Heart Attack ([place]) N Diabetes N Heart Disease N Hypertension N Osteoporosis N Gynecological HistoryNo gynecological history recorded. Obstetrics History GPAL:G 0 P 0 0 0 0 Past Encounters Encounter ID Performer Location Encounter Start Date Encounter Closed Date Diagnosis/Indication Diagnosis SNOMED-CT Code Diagnosis ICD10 Code Diagnosis Note [id number] Yong Mata MD [facility] [address] [place] [address],[place] [address] 10/27/2021 13:06:17 10/27/2021 14:14:54 Degeneration of lumbar intervertebral disc 83135916 M51.36 Lumbar radiculopathy 128 330177 M54.16 [id number] Yong Mata MD [facility] [address] [place] [address],[place] [address] 01/19/2022 08:33:14 01/19/2022 09:26:52 Degeneration of lumbar intervertebral disc 61851113 M51.36 Lumbar radiculopathy 128 854119 M54.16 [id number] Yong Mata MD [facility] [address] [place] [address],[place] [address] 6 02/02/2022 12:48:00 02/02/2022 13:28:11 Degeneration of lumbar intervertebral disc 61260224 M51.36 Lumbar radiculopathy 128 636590 M54.16 [id number] Yong Mata MD [facility] [address] [place] [address],[place] [address] 6 03/30/2022 14:26:17 03/30/2022 16:03:59 Degeneration of lumbar intervertebral disc 15869124 M51.36 Lumbar radiculopathy 128 655723 M54.16 [id number] Peter Barraza [facility] [address] [facility] [address] 6 04/27/2022 11:03:58 04/27/2022 11:27:12 Degeneration of lumbar intervertebral disc 65218998 M51.36 Lumbar radiculopathy 128 171659 M54.16 [id number] Yong Mata MD [facility] [address] [facility],[place] [address] 6 05/13/2022 10:32:29 05/13/2022 11:14:06 Degeneration of lumbar intervertebral disc 16144281 M51.36 Lumbar radiculopathy 128 985333 M54.16 [id number] Peter Christi [facility] [address] [facility],[place] [address] 6 06/03/2022 10:04:40 06/03/2022 10:21:21 Lumbar radiculopathy 518077706 M54.16 Degenerati on of lumbar intervertebral disc 93375057 M51.36 [id number] Yong Mata MD [facility] [address] [place] [address] 3 10/08/2022 13:46:10 10/08/2022 15:08:50 Lumbar radiculopathy 767030685 M54.16 Degenerati on of lumbar intervertebral disc 23182851 M51.36 [id number] Peter Barraza [address] [place] [address] 09/06/2022 13:43:35 09/06/2022 14:19:34 Lumbar radiculopathy 139883689 M54.16 Degenerati on of lumbar intervertebral disc 60006330 M51.36 [id number] Yong Mata MD [facility] [address] [place] [address] 3 10/21/2022 15:02:03 10/21/2022 16:07:23 Lumbar radiculopathy 095628361 M54.16 Degenerati on of lumbar intervertebral disc 86887051 M51.36 Inflammati on of sacroiliac joint 77908436 M46.1 [id number] Yong Mata MD [address] [place] [address] 3 11/04/2022 14:13:12 11/04/2022 14:39:38 Degeneration of lumbar intervertebral disc 77432253 M51.36 Inflammati on of sacroiliac joint 12697658 M46.1 Lumbar radiculopathy 128 520549 M54.16 [id number] Yong Mata MD [address] [place] [address] 3 11/25/2022 14:27:36 11/25/2022 14:58:12 Degeneration of lumbar intervertebral disc 14292001 M51.36 Inflammati on of sacroiliac joint 68109299 M46.1 Lumbar radiculopathy 128 043586 M54.16 [id number] Yong Mata MD [address] [place] [address] 3 12/15/2022 09:31:04 12/15/2022 10:30:53 Low back pain 427017443 M54.50 Degenerati on of lumbar intervertebral disc 39138298 M51.36 Inflammati on of sacroiliac joint 52148265 M46.1 Lumbar radiculopathy 128 472651 M54.16 [id number] Ilana Bagley NP [address] [place] [address] 3 12/24/2022 13:44:17 12/24/2022 14:40:02 Lumbar radiculopathy 348636038 M54.16 Degenerati on of lumbar intervertebral disc 15762141 M51.36 Inflammati on of sacroiliac joint 64079482 M46.1 Pain in coccyx 49455901 M53.3 [id number] Yong Mata MD [address] [place] [address] 3 01/10/2023 13:28:15 01/10/2023 14:10:05 Degeneration of lumbar intervertebral disc 52129550 M51.36 Inflammati on of sacroiliac joint 92084556 M46.1 Lumbar radiculopathy 128 110577 M54.16 [id number] Yong Mata MD [address] [place] [address] 3 02/03/2023 13:37:47 02/04/2023 11:58:24 Degeneration of lumbar intervertebral disc 33964465 M51.36 Inflammati on of sacroiliac joint 59544846 M46.1 Lumbar radiculopathy 128 651595 M54.16 [id number] Ilana Bagley NP [address] [place] [address] 3 03/29/2023 11:05:58 03/29/2023 12:12:07 Lumbar radiculopathy 676039901 M54.16 Degenerati on of lumbar intervertebral disc 94922784 M51.36 Inflammati on of sacroiliac joint 28240618 M46.1 Chronic pain syndrome 37 7917970 G89.4 [id number] ROBERT BE NP [address] [place] [address] 3 04/21/2023 12:51:29 04/21/2023 14:33:35 Lumbar radiculopathy 471711278 M54.16 Degenerati on of lumbar intervertebral disc 71837323 M51.36 Chronic pain syndrome 37 3090483 G89.4 Inflammati on of sacroiliac joint 22082970 M46.1 Chronic pain 34718302 G8 9.29 [id number] Yong Mata MD [address] [place] [address] 3 05/19/2023 12:54:10 05/19/2023 14:08:28 Lumbar radiculopathy 528186973 M54.16 Chronic pain syndrome 37 8557187 G89.4 Degenerati on of lumbar intervertebral disc 60486270 M51.36 Inflammati on of sacroiliac joint 40904794 M46.1 [id number] Yong Mata MD [address] [place] [address] 3 06/23/2023 14:26:02 06/23/2023 15:23:27 Degeneration of lumbar intervertebral disc 21218433 M51.36 Chronic pain syndrome 37 1478509 G89.4 Inflammati on of sacroiliac joint 54797845 M46.1 Lumbar radiculopathy 128 840469 M54.16 Lumbar spondylosis 26252 0009 M47.896 Arthropath y of lumbar facet joint 036878066 M47.816 [id number] Yong Mata MD [address] [place] [address] 3 07/14/2023 13:35:47 07/14/2023 14:30:35 Lumbar radiculopathy 447965226 M54.16 Chronic pain syndrome 37 6141040 G89.4 Degenerati on of lumbar intervertebral disc 65795707 M51.36 Inflammati on of sacroiliac joint 83265384 M46.1 Lumbar spondylosis 18603 0009 M47.896 Arthropath y of lumbar facet joint 371475191 M47.816 [id number] Yong Mata MD [address] [place] [address] 3 08/18/2023 14:08:31 08/18/2023 14:58:34 Lumbar radiculopathy 160280186 M54.16 Arthropath y of lumbar facet joint 508195037 M47.816 Chronic pain syndrome 37 8264371 G89.4 Degenerati on of lumbar intervertebral disc 54791952 M51.36 Inflammati on of sacroiliac joint 60830604 M46.1 Lumbar spondylosis 61961 0009 M47.896 [id number] Yong Mata MD [address] [place] [address] 3 09/15/2023 14:37:31 09/15/2023 15:29:26 Lumbar radiculopathy 370163423 M54.16 Arthropath y of lumbar facet joint 223593378 M47.816 Chronic pain syndrome 37 0781813 G89.4 Degenerati on of lumbar intervertebral disc 03072090 M51.36 Inflammati on of sacroiliac joint 35485853 M46.1 Lumbar spondylosis 85929 0009 M47.896 [id number] ZI PARR NP [address] [place] [address] 3 10/13/2023 14:28:07 10/13/2023 15:04:25 Arthropathy of lumbar facet joint 378194749 M47.816 Degenerati on of lumbar intervertebral disc 73493383 M51.36 [id number] Yong Mata MD [address] [place] [address] 11/10/2023 13:04:07 11/10/2023 15:05:19 Lumbar radiculopathy 147364334 M54.16 Arthropath y of lumbar facet joint 541075872 M47.816 Degenerati on of lumbar intervertebral disc 19358316 M51.36 Inflammati on of sacroiliac joint 13219755 M46.1 Lumbar spondylosis 70296 0009 M47.896 Chronic pain syndrome 37 4759109 G89.4 [id number] Yong Mata MD [address] [place] [address] 12/08/2023 13:35:01 12/08/2023 14:43:07 Lumbar radiculopathy 083925627 M54.16 Arthropath y of lumbar facet joint 609103129 M47.816 Chronic pain syndrome 37 2411939 G89.4 Degenerati on of lumbar intervertebral disc 68194627 M51.369 Inflammati on of sacroiliac joint 68478480 M46.1 Lumbar spondylosis 39489 0009 M47.896 Long-term current use of opiate analgesic drug 0218192545 14571 Z79.891 [id number] Yong Mata MD [address] [place] [address] 01/04/2024 12:50:53 01/04/2024 13:54:18 Lumbar radiculopathy 174980248 M54.16 Arthropath y of lumbar facet joint 400494004 M47.816 Chronic pain syndrome 37 4380469 G89.4 Degenerati on of lumbar intervertebral disc 24774239 M51.369 Inflammati on of sacroiliac joint 84091637 M46.1 Lumbar spondylosis 63761 0009 M47.896 [id number] Yong Mata MD [address] [place] [address] 02/02/2024 12:41:08 02/02/2024 15:00:31 Lumbar radiculopathy 500742996 M54.16 Arthropath y of lumbar facet joint 515105849 M47.816 Chronic pain syndrome 37 4266880 G89.4 Degenerati on of lumbar intervertebral disc 42545813 M51.369 Inflammati on of sacroiliac joint 53507693 M46.1 Lumbar spondylosis 28489 0009 M47.896 [id number] Yong Mata MD [facility] [address] [place] [address] 03/07/2024 14:30:01 03/07/2024 15:03:31 Lumbar radiculopathy 644201218 M54.16 Lumbar spondylosis 74990 0009 M47.896 Degenerati on of lumbar intervertebral disc 44628984 M51.369 Arthropath y of lumbar facet joint 199529121 M47.816 Long-term drug therapy 607776053 Z79.891 Continuous opioid dependence 517522920 F11.20 [id number] TIFFANY CHASE [facility] [address] [place] [address] 04/05/2024 13:56:21 04/05/2024 14:40:47 Lumbar radiculopathy 547132971 M54.16 Arthropath y of lumbar facet joint 639672095 M47.816 Chronic pain syndrome 37 2532941 G89.4 Degenerati on of lumbar intervertebral disc 11756810 M51.369 Inflammati on of sacroiliac joint 48573608 M46.1 Continuous opioid dependence 855939775 F11.20 Long-term drug therapy 115003424 Z79.891 Lumbar spondylosis 10850 0009 M47.896 [id number] TIFFANY CHASE [address] [place] [address] 05/08/2024 13:35:21 05/08/2024 14:00:55 Lumbar radiculopathy 951253898 M54.16 Continuous opioid dependence 685378797 F11.20 Lumbar spondylosis 75034 0009 M47.896 Degenerati on of lumbar intervertebral disc 18128507 M51.369 [id number] Yong Mata MD [address] [place] [address] 06/14/2024 14:26:45 06/14/2024 15:19:36 Lumbar radiculopathy 103497329 M54.16 Continuous opioid dependence 692525890 F11.20 Lumbar spondylosis 36474 0009 M47.896 Degenerati on of lumbar intervertebral disc 23461132 M51.369 Long-term drug therapy 642400806 Z79.891 Chronic pain syndrome 37 1591331 G89.4 Chronic pain 82370630 G8 9.29 Arthropath y of lumbar facet joint 815063855 M47.816 Inflammati on of sacroiliac joint 32078740 M46.1 Myofascial pain 05446249 9 M79.18 [id number] TIFFANY CHASE [address] [place] [address] 3 07/12/2024 14:30:09 07/12/2024 15:04:02 Lumbar radiculopathy 236585314 M54.16 Continuous opioid dependence 895413784 F11.20 Lumbar spondylosis 07285 0009 M47.896 Degenerati on of lumbar intervertebral disc 17354139 M51.369 Myofascial pain 97304087 9 M79.18 Polyneuropathy 98703338 G62.9 [id number] Yong Mata MD [address] [place] [address] 08/02/2024 13:23:41 08/02/2024 14:13:58 Lumbar radiculopathy 091352519 M54.16 Degenerati on of lumbar intervertebral disc 75705087 M51.369 Polyneuropathy 59947041 G62.9 History of lumbar fusion 9095370096 9106 Z98.1 [id number] Yong Mata MD [address] [place] [address] 3 09/06/2024 14:13:19 09/06/2024 15:14:05 Lumbar radiculopathy 320563215 M54.16 Continuous opioid dependence 456461964 F11.20 Lumbar spondylosis 33830 0009 M47.896 Degenerati on of lumbar intervertebral disc 40032132 M51.369 Polyneuropathy 33866015 G62.9 Health Concerns Section Related Observation LastModified by Organization Detai ls LastModified Time None Recorded Concern Status LastModified by Organization Details LastModified Time None Recorded Advance Directives Directive None Recorded Payers Insurance Date Sequence Insurance Name Policy Number Policy Rhodes Covered Member ID Rhodes Member ID Guarantor Name 10/13/2023 2 [facility] [employer] - FFS/TRADITIONA L Luna W Sweet [id number] Luna Sweet 10/13/2023 3 [place] [id number] Luna W Sweet [id number] Luna Sweet 09/06/2024 1 [place]MED[place] REPLACEMENT REGIONAL PPO) [id number] Luna W Sweet [id number] Luna Sweet 10/13/2023 2 MEDICAID-[place] [facility] [employer] - FFS/TRADITIONA L Luna W Sweet [id number] Luna Sweet Notes Date Note Type Note Provider Name and Address Organization Details Recorded Time 05/08/2024 text/html Follow-up (meds & injections)Reported by PatientHPIFor improvement, patient reportspain is the same as compared to last visit.. For pain scores, patient reportsaverage pain- 9/10andcurrent pain- 8/10. 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 For adverse reactions, patient reportsno nausea.,no vomiting.,no constipation.,no itching.,no sedation.,no respiratory depression., andno sexual dysfunction.. For physical therapy, patient reportscompleted course in the past- ___. For recent injections, patient reportspain relief from injections- 80% lasting for __ __andepidural steroid injection: 80%}}(05/13/2022 (thera) ilesi l4/5 85% pain relief).ROS as noted in the [facility] [address], [address], [place] - [facility] 05/09/2024 09:10:31 06/14/2024 text/html Follow-up (meds & injections)Reported by PatientIFor improvement, patient reportspain is the same as compared to last visit.. For pain scores, patient reportsaverage pain- 7/10andcurrent pain- 8/10. 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 For adverse reactions, patient reportsno nausea.,no vomiting.,no constipation.,no itching.,no sedation.,no respiratory depression., andno sexual dysfunction.. For physical therapy, patient reportscompleted course in the past- ___. For recent injections, patient reportspain relief from injections- 80% lasting for __ __andepidural steroid injection: 80%}}(05/13/2022 (thera) ilesi l4/5 85% pain relief).ROS as noted in the [facility] [address], [address], [place] - [facility] 06/15/2024 08:56:41 07/12/2024 text/html Follow-up (meds & injections)Reported by PatientIFor improvement, patient reportspain is the same as compared to last visit.. For pain scores, patient reportsaverage pain- 7/10andcurrent pain- 8/10. 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 For adverse reactions, patient reportsno nausea.,no vomiting.,no constipation.,no itching.,no sedation.,no respiratory depression., andno sexual dysfunction.. For physical therapy, patient reportscompleted course in the past- ___. For recent injections, patient reportspain relief from injections- 80% lasting for __ __andepidural steroid injection: 80%}}(05/13/2022 (thera) ilesi l4/5 85% pain relief).ROS as noted in the HPI TIFFANY CHASE [address] [address], [place], [address], [place] - [facility] 07/13/2024 10:33:03 08/02/2024 text/html Follow-up (meds & injections)Reported by PatientHPIFor improvement, patient reportspain is the same as compared to last visit.. For pain scores, patient reportsaverage pain- 7/10andcurrent pain- 8/10. 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 For adverse reactions, patient reportsno nausea.,no vomiting.,no constipation.,no itching.,no sedation.,no respiratory depression., andno sexual dysfunction.. For physical therapy, patient reportscompleted course in the past- ___. For recent injections, patient reportspain relief from injections- 80% lasting for __ __andepidural steroid injection: 80%}}(05/13/2022 (thera) ilesi l4/5 85% pain relief).ROS as noted in the HPI Yong Mata MD [address], [address], [place] - [facility] 08/02/2024 17:48:41 09/06/2024 text/html Follow-up (meds & injections)Reported by PatientIFor improvement, patient reportspain is the same as compared to last visit.. For pain scores, patient reportsaverage pain- 9/10andcurrent pain- 8/10. 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 For adverse reactions, patient reportsno nausea.,no vomiting.,no constipation.,no itching.,no sedation.,no respiratory depression., andno sexual dysfunction.. For physical therapy, patient reportscompleted course in the past- ___. For recent injections, patient reportspain relief from injections- 80% lasting for __ __andepidural steroid injection: 80%}}(05/13/2022 (thera) ilesi l4/5 85% pain relief).ROS as noted in the HPI Yong Mata MD [address], [address], [place] [facility] 09/06/2024 17:37:15 OBGyn Episode No OBEpisode recorded.
--- OUTSIDE RECORDS SUMMARY | 2024-09-21 13:04 | XMS_ITS | Data Portability ---
Author Organization [facility] Address [address] [place] [address] Care Team Providers Care Geophysical Party Chief Name Role Phone SIPX Primary Care Provider Assessment Encounter Date Assessment Date Assessment LastModified by Organization Details LastModified Time 05/07/2019 05/07/2019 BSE reviewed and recommended . Reviewed calcium needs, exercise, and prevention of osteoporosis . Periodic colonoscopy screening recommended . Reviewed normal menopause and menopausal symptoms . Mammogram recommended yearly . [email or web address] Not available 05/07/2019 12:43:18 Plan of Treatment Reminders Order Date Submit Date Provider Last Modified By Organization Details Last Modified Time Details Appointments None recorded. Lab pap, IG + HPV - 11/19/10 wnl no hpv testing 02/03/16 wnl pos hpv will f/u testing 1 year 02/08/17 wnl pos hpv 16 (scheduled colpo) 03/10/17 ECC- MARYLOU-I and HPV changes of squamous cells. plan repeat pap q 6month x 3 negative 09/12/17 ascus pos hpv 02/10/18 ascus pos hpv 03/27/18 +hpv ecc 03/21/18 LEEP mild dysplasia with neg margin 11/02/18 Ascus pos HPV 05/07/2019 wnl pos HPV 16 06/21/19 colpo MARYLOU-I and ELVI-3 on her vulva @ 5 and 7 2019 020 [facility], [address], [place], [address], 0 13:10:15 pathology study 2019 020 [facility], [address], [address], [place], [address], 0 14:08:13 pap, IG + CT/NG + HR HPV + reflex HPV (16+18) - 11/02/18 ascus + hpv; 04/21/18 LEEP: mild dysplasia negative margin; 03/27/18 Colpo: + HPVon ECC; 02/10/18 ascus + hpv; 09/12/17 ascus + hpv; 03/10/17 Colpo: MARYLOU-I, neg ECC; 02/08/17 wnl pos hpv (+16); 02/03/16 wnl pos hpv; 1990 Cryo of cervix 2019 020 AYSE [facility], [address], [address], [place], [address], 0 20:07:51 urinalysis , dipstick 2018 019 [email or web address] [employer], [address] [place] [address] , [place], [address], 9 11:28:54 culture, urine 2018 019 [facility], [address], [address], [place], [address], 9 06:10:13 urinalysis , complete 2018 019 AYSE [facility], [address], [address] [address], [place], [address], 9 06:10:12 pap, IG + CT/NG + reflex HPV (16+18) - 02/10/18 ascus + hpv; 09/12/17 ascus + hpv; 02/08/17 wnl pos hpv (+16); 02/03/16 wnl pos hpv; 11/19/10wnl 2018 019 [facility], [address], [address], [place], [address], 9 12:10:00 Referral None recorded. Procedures None recorded. Surgeries None recorded. Imaging MAMMO, screening, bilateral 2018 [email or web address] [facility] (X-Ray), [address], [place], [address], 0 09:27:00 Medication Orders Fosamax 70 mg tablet 2019 INTERFACE [facility], [address] [place], [address], 0 16:22:24 Vistaril 25 mg capsule 2019 elisrene [facility], [address] [place], [address], 0 20:58:26 Premarin 0.625 mg/gram vaginal cream 2019 INTERFACE [facility], [address] [place], [address], 0 13:32:28 clotrimazo le-betamet hasone 1 %-0.05 % topical cream 2018 019 [email or web address] [facility], [address] [place], [address], 0 13:32:33 Premarin 0.625 mg/gram vaginal cream 2018 019 [facility], [address] [place], [address], 9 11:30:32 Patient TargetsNo targets recorded. Patient Instructions Encounter Date Encounter Id Patient Instructions Last Modified By Organization Details Last Modified Time 11/02/2018 [id number] Discussed the spectrum of abnormal pap smears, the relationship to HPV infection, high and low risk HPV types, cervical dysplasia, cervical cancer, and genital warts. Reviewed HPV as a sexually transmitted disease, the natural course of most infections and risk factors for infection. Reviewed the difference between LGSIL and HGSIL, and management strategies for each Colposcopy recommended. Procedure reviewed in detail. Written information provided [email or web address] Not available 11/02/2018 10:50:44 05/07/2019 [id number] Quitting Tobacco : Care Instructions [email or web address] Not available 05/07/2019 13:33:30 Reason for Referral None Reported. Results Created Date Observation Date Name Description Value Unit Range Abnormal Flag Note LastModifiedBy Organization Detail LastModifiedTime 11/03/1911/03/2018 urina lysis , compl ete specific gravity 1.009 1.005- 1.030 Not Available [facility] ([facility]) [address] [place], [address], 11/04/2018 06:10:12 11/03/1911/03/2018 urina lysis , compl ete pH 5.5 5.0-7. 5 Not Available [facility] ([facility]) [address] [place], [address], 11/04/2018 06:10:12 11/03/1911/03/2018 urina lysis , compl ete urine-color Yellow yellow Not Available [facility] ([facility]) [address] [place], [address], 11/04/2018 06:10:12 11/03/1911/03/2018 urina lysis , compl ete appearance Clear clear Not Available [facility] ([facility]) [address] [place], [address], 11/04/2018 06:10:12 11/03/1911/03/2018 urina lysis , compl ete WBC esterase Negati ve negati ve Not Available [facility] ([facility]) [address] [place], [address], 11/04/2018 06:10:12 11/03/1911/03/2018 urina lysis , compl ete protein Negati ve negati ve/tra ce Not Available [facility] ([facility]) [address] [place], [address], 11/04/2018 06:10:12 11/03/1911/03/2018 urina lysis , compl ete glucose Negati ve negati ve Not Available [facility] ([facility]) [address] [place], [address], 11/04/2018 06:10:12 11/03/1911/03/2018 urina lysis , compl ete ketones Negati ve negati ve Not Available [facility] ([facility]) [address] [place], [address], 11/04/2018 06:10:12 11/03/1911/03/2018 urina lysis , compl ete occult blood Negati ve negati ve Not Available [facility] ([facility]) [address] [place], [address], 11/04/2018 06:10:12 11/03/1911/03/2018 urina lysis , compl ete bilirubin Negati ve negati ve Not Available [facility] ([facility]) [address] [place], [address], 11/04/2018 06:10:12 11/03/1911/03/2018 urina lysis , compl ete urobilinogen ,semi-qn 0.2 mg/dL 0.2-1. 0 Not Available [facility] ([facility]) [address] [place], [address], 11/04/2018 06:10:12 11/03/1911/03/2018 urina lysis , compl ete nitrite, urine Negati ve negati ve Not Available [facility] ([facility]) [address] [place], [address], 11/04/2018 06:10:12 11/03/1911/03/2018 urina lysis , compl ete microscopic examination Commen t Micro scopi c not indic ated and not perfo rmed. Not Available [facility] ([facility]) [address] [facility], [place], [address], 11/04/2018 06:10:12 11/03/1911/03/2018 cultu re, urine urine culture, routine Final report Not Available [facility] ([facility]) [address] [facility], [place], [address], 11/04/2018 06:10:13 11/03/1911/03/2018 cultu re, urine result 1 No growth Not Available [facility] ([facility]) [address] [facility], [place], [address], 11/04/2018 06:10:13 11/03/1911/06/2018 pap, IG + CT/NG + refle x HPV (16+1 8) chlamydia, nuc. acid amp Negati ve negati ve Not Available [facility] ([facility]) [address] [facility], [place], [address], 11/08/2018 12:10:00 11/03/1911/06/2018 pap, IG + CT/NG + refle x HPV (16+1 8) gonococcus, nuc. acid amp Negati ve negati ve Not Available [facility] ([facility]) [address] [facility], [place], [address], 11/08/2018 12:10:00 11/03/19 19 11/07/2018 pap, IG + CT/NG + refle x HPV (16+1 8) HPV, high-risk Positi ve negati ve abnormal This high- risk HPV test detec ts thirt een high- risk types (16/1 8/31/ 33/35 /39/4 5/51/ 52/56 /58/5 9/68) witho ut diffe renti ation . Not Available [facility] ([facility]) [address] [facility], [place], [address], 11/08/2018 12:10:00 11/03/19 11/08/2018 pap, IG + CT/NG + refle x HPV (16+1 8) diagnosis: Ashley balderas abnormal EPITH ELIAL CELL ABNOR MALIT Y. ATYPI LILLIE SQUAM OUS CELLS OF UNDET ERMIN ED SIGNI FICAN CE (ASC- US). Not Available [facility] ([facility]) [address] [place], [address], 11/08/2018 12:10:00 11/03/19 19 11/08/2018 pap, IG + CT/NG + refle x HPV (16+1 8) specimen adequacy: Ashley t Satis facto ry for evalu ation . Endoc ervic al and/o r squam ous metap lasti c cells (endo cervi lillie compo nent) are prese nt. Not Available [facility] ([facility]) [address] [place], [address], 11/08/2018 12:10:00 11/03/19 19 11/08/2018 pap, IG + CT/NG + refle x HPV (16+1 8) clinician provided ICD10: Ashley balderas R30.0 R87.6 19 Z11.3 Not Available [facility] ([facility]) [address] [place], [address], 11/08/2018 12:10:00 11/03/19 19 11/08/2018 pap, IG + CT/NG + refle x HPV (16+1 8) performed by: Ashley Vallejo , Cytot echno logis t Not Available [facility] ([facility]) [address] [place], [address], 11/08/2018 12:10:00 11/03/1911/08/2018 pap, IG + CT/NG + refle x HPV (16+1 8) electronical ly signed by: Ashley GarciaScheurer HospitalRoddy Asher MD, Patho logis t Not Available [facility] ([facility]) [address] [place], [address], 11/08/2018 12:10:00 11/03/19 19 11/08/2018 pap, IG + CT/NG + refle x HPV (16+1 8) . . Not Available [facility] ([facility]) [address] [facility], [place], [address], 11/08/2018 12:10:00 11/03/1911/08/2018 pap, IG + CT/NG + refle x HPV (16+1 8) pathologist provided ICD10: Ashley balderas R87.6 10 Not Available [facility] ([facility]) [address] [facility], [place], [address], 11/08/2018 12:10:00 11/03/19 19 11/08/2018 pap, IG + CT/NG + refle x HPV (16+1 8) note: Ashley t The Pap smear is a scree anna marie test desig vignesh to aid in the detec tion of adi ligna nt and malig nant condi tions of the uteri ne cervi x. It is not a diagn ostic proce dure and shoul d not be used as the sole means of detec ting cervi lillie cance r. Both false -posi tive and false -nega tive repor ts do occur . Not Available [facility] ([facility]) [address] [facility], [place], [address], 11/08/2018 12:10:00 11/03/1911/08/2018 pap, IG + CT/NG + refle x HPV (16+1 8) test methodology: Ashley balderas This liqui d based ThinP rep(R ) pap test was scree vignesh with the use of an image guide essie montalvo. Not Available [facility] ([facility]) [address] [facility], [place], [address], 11/08/2018 12:10:00 11/03/19 19 11/02/2018 urina lysis , dipst ick Leukocytes Negati ve Not Available [facility] [employer] [facility] [address] [place] [address] , [place], [address], 11/02/2018 11:04:15 11/03/19 19 11/02/2018 urina lysis , dipst ick Nitrite negati ve Not Available [employer] [facility] [address] [place] [address] , [place], [address], 11/02/2018 11:04:15 11/03/19 19 11/02/2018 urina lysis , dipst ick Urobilinogen .2 Not Available [facility] [employer] [address] [place] [address] , [place], [address], 11/02/2018 11:04:15 11/03/19 19 11/02/2018 urina lysis , dipst ick Protein Negati ve Not Available [facility]/[address] , [place], [address], 11/02/2018 11:04:15 11/03/19 19 11/02/2018 urina lysis , dipst ick pH 8.5 Not Available [facility]/[address] , [place], [address], 11/02/2018 11:04:15 11/03/19 19 11/02/2018 urina lysis , dipst ick Blood Negati ve Not Available [employer] [facility] [address] [place] [address] , [place], [address], 11/02/2018 11:04:15 11/03/19 19 11/02/2018 urina lysis , dipst ick Specific [place] 1.015 Not Available [facility] [employer] [address] [place] [address] , [place], [address], 11/02/2018 11:04:15 11/03/19 19 11/02/2018 urina lysis , dipst ick Ketone Negati ve Not Available [facility] [employer] [facility] [address] [place] [address] , [place], [address], 11/02/2018 11:04:15 11/03/1911/02/2018 urina lysis , dipst ick Bilirubin Negati ve Not Available [facility] [employer] [facility] [address] [place] [address] , [place], [address], 11/02/2018 11:04:15 11/03/1911/02/2018 urina lysis , dipst ick Glucose Negati ve Not Available [facility] [employer] [facility] [address] [place] [address] , [place], [address], 11/02/2018 11:04:15 11/03/1911/02/2018 urina lysis , dipst ick Appearance Cloudy Not Available [facility] [employer] [address] [place] [address] , [place], [address], 11/02/2018 11:04:15 11/03/1911/02/2018 urina lysis , dipst ick Color Yellow Not Available [facility] [employer] [facility] [address] [place] [address] , [place], [address], 11/02/2018 11:04:15 05/07/19 20 05/08/2019 pap, IG + CT/NG + HR HPV + refle x HPV (16+1 8) chlamydia, nuc. acid amp Negati ve negati ve Not Available [facility] ([facility]) [address] [place], [address], 05/11/2019 20:07:51 05/07/1905/08/2019 pap, IG + CT/NG + HR HPV + refle x HPV (16+1 8) gonococcus, nuc. acid amp Negati ve negati ve Not Available [facility] ([facility]) [address] [facility], [place], [address], 05/11/2019 20:07:51 05/07/19 20 05/09/2019 pap, IG + CT/NG + HR HPV + refle x HPV (16+1 8) HPV, high-risk Positi ve negati ve abnormal This nucle ic acid ampli ficat ion high- risk HPV test detec ts thirt een high- risk types (16,1 8,31, 33,35 ,39,4 5,51, 52,56 ,58,5 9,68) witho ut diffe renti ation . Not Available [facility] ([facility]) [address] [facility], [place], [address], 05/11/2019 20:07:51 05/07/19 20 05/10/2019 pap, IG + CT/NG + HR HPV + refle x HPV (16+1 8) diagnosis: Commen t NEGAT DORIE FOR INTRA EPITH ELIAL LESIO N OR MALIG PURVI . THIS SPECI MEN WAS RESCR EENED PART OF OUR QUALI TY CONTR OL PROGR AM. Not Available [facility] ([facility]) [address] [facility], [place], [address], 05/11/2019 20:07:51 05/07/19 20 05/10/2019 pap, IG + CT/NG + HR HPV + refle x HPV (16+1 8) specimen adequacy: Commen t Satis facto ry for evalu ation . No endoc ervic al compo nent is ident ified . Not Available [facility] ([facility]) [address] [facility], [place], [address], 05/11/2019 20:07:51 05/07/19 20 05/10/2019 pap, IG + CT/NG + HR HPV + refle x HPV (16+1 8) clinician provided ICD10: Commen t N87.0 Not Available [facility] ([facility]) [address] [facility], [place], [address], 05/11/2019 20:07:51 05/07/19 20 05/10/2019 pap, IG + CT/NG + HR HPV + refle x HPV (16+1 8) performed by: Ashley negrete, Cytot echno logis t (ASCP ) Not Available [facility] ([facility]) [address] [place], [address], 05/11/2019 20:07:51 05/07/19 20 05/10/2019 pap, IG + CT/NG + HR HPV + refle x HPV (16+1 8) QC reviewed by: Ashley howelle, Super visor y [employer] logis t (ASCP ) Not Available [facility] ([facility]) [address] [place], [address], 05/11/2019 20:07:51 05/07/19 20 05/10/2019 pap, IG + CT/NG + HR HPV + refle x HPV (16+1 8) . . Not Available [facility] ([facility]) [address] [place], [address], 05/11/2019 20:07:51 05/07/19 20 05/10/2019 pap, IG + CT/NG + HR HPV + refle x HPV (16+1 8) note: Ashley balderas The Pap smear is a scree anna marie test desig vignesh to aid in the detec tion of adi ligna nt and malig nant condi tions of the uteri ne cervi x. It is not a diagn ostic proce dure and shoul d not be used as the sole means of detec ting cervi lillie cance r. Both false -posi tive and false -nega tive repor ts do occur . Not Available [facility] ([facility]) [address] [facility], [place], [address], 05/11/2019 20:07:51 05/07/19 20 05/10/2019 pap, IG + CT/NG + HR HPV + refle x HPV (16+1 8) test methodology: Ashley balderas This liqui d based ThinP rep(R ) pap test was scree vignesh with the use of an image guide essie jiménez Not Available [facility] ([facility]) [address] [place], [address], 05/11/2019 20:07:51 05/07/19 20 05/11/2019 pap, IG + CT/NG + HR HPV + refle x HPV (16+1 8) HPV genotype, 16 Positi ve negati ve abnormal Not Available [facility] ([facility]) [address] [place], [address], 05/11/2019 20:07:51 05/07/19 20 05/11/2019 pap, IG + CT/NG + HR HPV + refle x HPV (16+1 8) HPV genotype, 18 Negati ve negati ve Not Available [facility] ([facility]) [address] [facility], [place], [address], 05/11/2019 20:07:51 06/21/19 20 06/26/2019 patho logy study . Commen t Mater ial submi tted: . PART A: endoc ervix - ENDOC ERVIC AL CURET TAGE PART B: vulva - VULVA R BIOPS Y 5:00. Modif iers: 5:00 PART C: vulva - VULVA R BIOPS Y 7:00. Modif iers: 7:00 Not Available [facility] ([facility]) [address] [facility], [place], [address], 06/26/2019 14:08:12 06/21/1906/26/2019 patho logy study . Commen t Clini lillie histo ry: . 5:00; 7:00 Not Available [facility] ([facility]) [address] [place], [address], 06/26/2019 14:08:12 06/21/1906/26/2019 patho logy study . Commen t Diagn osis: Part A: ENDOC ERVIC AL CURET TAGE: LOW-G RADE SQUAM OUS INTRA EPITH ELIAL LESIO N (MARYLOU 1). TRANS FORMA TION ZONE NOT REPRE SENTE D. Part B: VULVA R BIOPS Y 5:00: HIGH- GRADE SQUAM OUS INTRA EPITH ELIAL LESIO N (ELVI 3), INVOL VING THE BIOPS Y MYA N. Part C: VULVA R BIOPS Y 7:00: HIGH- GRADE SQUAM OUS INTRA EPITH ELIAL LESIO N (ELVI 3), INVOL VING THE BIOPS Y MYA N. COMME NT: CLINI LILLIE CORRE LATIO N AND PATIE NT FOLLO WUP ARE RECOM MARYANN D. GXA 06/24 1716 Local Not Available [facility] ([facility]) [address] [place], [address], 06/26/2019 14:08:12 06/21/19 20 06/26/2019 patho logy study . Commen t Yen hanson d: . Perico jones MD, Patho logis t Not Available [facility] ([facility]) [address] [place], [address], 06/26/2019 14:08:12 06/21/1906/26/2019 patho logy study . Commen t Gross descr iptio n: . 3 Conta iners , forma johnathan-f illed , label ed with patie nt ident ifica tion. Part A: ENDOC ERVIC AL CURET TAGE: RECEI MARIANN IS AN ENDOC ERVIC AL BRUSH . SCRAP INGS PRODU CE 0.5 X 0.4 X 0.1 CM IN AGGRE GATE OF MUCUS , HEMOR RHAGI C MATER IAL AND SOFT MATER IAL. THE SPECI MEN IS FILTE RED AND ENTIR DAI SUBMI TTED IN CASSE TTE(S ) A1. Part B: VULVA R BIOPS Y 5:00: RECEI MARIANN IS 1 FRAGM ENT(S ) OF WRINK LED POLYP OID CARIAS SKIN TISSU E MEASU RING 0.5 X 0.3 X 0.2 CM. THE SURGI LILLIE MYA N IS INKED BLACK . THE SPECI MEN IS SUBMI TTED INTAC T AND SUBMI TTED IN CASSE TTE(S ) B1. THE SPECI MEN WAS SUBMI TTED BETWE EN TWO SPONG ES FOR PROCE SSING . Part C: VULVA R BIOPS Y 7:00: RECEI MARIANN IS 1 FRAGM ENT(S ) OF WRINK LED POLYP OID CARIAS SKIN TISSU E MEASU RING 0.3 X 0.2 X 0.2 CM. THE SURGI LILLIE MYA N IS INKED RED. THE SPECI MEN IS SUBMI TTED INTAC T AND SUBMI TTED IN CASSE TTE(S ) C1. THE SPECI MEN WAS SUBMI TTED BETWE EN TWO SPONG ES FOR PROCE SSING . HAV/H AV 06/21 0733 Local Not Available [facility] ([facility]) [address] [place], [address], 06/26/2019 14:08:12 06/21/19 20 06/26/2019 patho logy study . Commen t Patho logis t provi ded ICD-1 0: N87.0 , D07.1 , D07.1 Not Available [facility] ([facility]) [address] [place], [address], 06/26/2019 14:08:12 06/21/19 20 06/26/2019 patho logy study . Commen t CPT . 71000 1, 89050 2, 76121 3 Not Available [facility] ([facility]) [address] [place], [address], 06/26/2019 14:08:12 01/10/2001/14/2020 pap, IG + HPV HPV, high-risk Positi ve negati ve abnormal This nucle ic acid ampli ficat ion high- risk HPV test detec ts thirt een high- risk types (16,1 8,31, 33,35 ,39,4 5,51, 52,56 ,58,5 9,68) witho ut diffe renti ation . EFF ECTIV E JANUA RY 2020 THIS TEST WILL BE MADE NON-O RDERA BLE. SEE [facility] DIREC TORY OF SERVI DISHA FOR ALTER NATIV ES TO THE HIGH RISK HPV TEST. ANY PROFI LE THAT INCLU TUSHAR THIS TEST WILL ALSO BE MADE NON-O RDERA BLE.* * Not Available [facility] ([facility]) [address] [facility], [place], [address], 01/17/2020 13:10:14 01/10/2001/16/2020 pap, IG + HPV diagnosis: Ashley balderas NEGAT DORIE FOR INTRA EPITH ELIAL LESIO N OR MALIG PURVI . REACT DORIE CELLU LAR GAMEZ ES AND/O R REPAI R ARE PRESE NT. Not Available [facility] ([facility]) [address] [facility], [place], [address], 01/17/2020 13:10:14 01/10/2001/16/2020 pap, IG + HPV specimen adequacy: Ashley t Satis facto ry for evalu ation . No endoc ervic al compo nent is ident ified . Not Available [facility] ([facility]) [address] [facility], [place], [address], 01/17/2020 13:10:14 01/10/2001/16/2020 pap, IG + HPV clinician provided ICD10: Ashley balderas N87.0 R87.8 10 Not Available [facility] ([facility]) [address] [facility], [place], [address], 01/17/2020 13:10:14 01/10/2001/16/2020 pap, IG + HPV performed by: Commen t Elvira y Thomp son, Cytot echno logis t (ASCP ) Not Available [facility] ([facility]) [address] [place], [address], 01/17/2020 13:10:14 01/10/2001/16/2020 pap, IG + HPV electronical ly signed by: Ashley jones MD, Patho logis t Not Available [facility] ([facility]) [address] [place], [address], 01/17/2020 13:10:14 01/10/2001/16/2020 pap, IG + HPV . . Not Available [facility] ([facility]) [address] [facility], [place], [address], 01/17/2020 13:10:14 01/10/2001/16/2020 pap, IG + HPV note: Ashley t The Pap smear is a scree anna marie test desig vignesh to aid in the detec tion of adi ligna nt and malig nant condi tions of the uteri ne cervi x. It is not a diagn ostic proce dure and shoul d not be used as the sole means of detec ting cervi lillie cance r. Both false -posi tive and false -nega tive repor ts do occur . Not Available [facility] ([facility]) [address] [facility], [place], [address], 01/17/2020 13:10:14 01/10/2001/16/2020 pap, IG + HPV test methodology: Ashley t This liqui d based ThinP rep(R ) pap test was scree vignesh with the use of an image guide essie jiménez Not Available [facility] ([facility]) [address] [place], [address], 01/17/2020 13:10:14 01/10/2001/17/2020 pap, IG + HPV HPV genotype, 16 Positi ve negati ve abnormal Not Available [facility] ([facility]) [address] [facility], [place], [address], 01/17/2020 13:10:14 01/10/2001/17/2020 pap, IG + HPV HPV genotype, 18 Negati ve negati ve Not Available [facility] ([facility]) [address] [facility], [place], [address], 01/17/2020 13:10:14 10/27/19 19 10/04/2018 MAMMO , scree anna marie, digit al, bilat eral No observ ation record ed. [facility] (Scheduling) [address], [place], [address], 10/27/2018 08:26:35 Result Notes None recorded. 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 02/08/17 wnl pos hpv 16 (schedule d colpo) 03/10/17 ECC- MARYLOU-I and HPV changes of squamous cells. 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 pos margins. advise quit smoking f/u 6-12 months Radha Miller APRN [address], [place], [address], [place] - [facility] 0 17:06:37 Problem Notes None recorded. Procedures Surgical History Date Name Laterality Status Provider Name and Address Organization Details Recorded Time 03/19/19 21 robot assisted laparoscopic total hysterectomy completed Radha Miller APRN [address], [place], [address], [place] - [facility] 06/23/2020 14:32:45 03/19/19 21 excision of bilateral fallopian tubes and ovaries completed Radha Miller APRN [address], [place], [address], [place] [facility] 06/23/2020 14:31:22 07/13/19 20 Vulvectomy simple partial completed Nedra Montero [place] - [facility] 08/20/2019 17:02:25 06/21/19 20 Vulvar Biopsy completed Chelsey Mascorro MD [address], [place], [address], [place] [facility] 06/21/2019 12:36:58 06/21/19 20 Colposcopy completed Chelsey Masocrro MD [address], [place], [address], [place] - [facility] 06/21/2019 12:33:47 06/04/19 20 Colposcopy cancelled Nedra Montero [place] - [facility] 06/01/2019 13:49:44 05/07/19 20 Date of Last Pap Smear completed Radha Miller APRN [address], [place], [address], [place] - [facility] 05/14/2019 10:01:53 10/05/19 19 Date of Last Mammogram completed Radha Miller APRN [address], [place], [address], [place] [facility] 10/27/2018 08:26:14 05/09/19 19 Cholecystectomy, laparoscopic completed Nedra Montero [place] - [facility] 05/30/2018 14:55:50 04/21/19 19 LEEP Procedure completed Chelsey Mascorro MD [address], [place], [address], [place] - [facility] 04/21/2018 14:03:02 04/21/19 19 LEEP completed Nedra Montero [place] - [facility] 04/28/2018 15:52:44 03/30/19 19 Nerve surgery completed Chelsey Mascorro MD [address], [place], [address], [place] [facility] 04/21/2018 13:57:54 03/27/19 19 Colposcopy completed Radha Miller APRN [address], [place], [address], [place] [facility] 03/27/2018 15:46:12 03/27/19 19 Colposcopy completed Nedra Montero [place] - [facility] 04/28/2018 15:53:39 03/27/19 19 colposcopy completed Radha Miller APRN [address], [place], [address], [place] [facility] 03/29/2018 12:48:12 03/01/19 19 stimulation completed Shameka Shannon [place] - [facility] 11/02/2018 10:59:13 09/09/19 18 Most Recent Bone Density completed Radha Paul [employer] [address], [place], [address], [place] [facility] 09/11/2017 21:34:01 05/03/19 18 Date of Last Colonoscopy completed Radha Paul [employer] [address], [place], [address], [place] [facility] 03/02/2018 13:43:00 03/10/19 18 Colposcopy completed Radhanoman Miller APRN [address], [place], [address], [place] [facility] 03/10/2017 14:25:46 03/10/19 18 Colposcopy completed Radhanoman Miller APRN [address], [place], [address], [place] [facility] 03/17/2017 09:31:51 05/30/19 17 dental surgery completed Radha Miller APRN [address], [place], [address], [place] [facility] 11/08/2018 12:51:47 02/28/19 07 Unlisted px accessory sinus completed Radhanoman Miller [employer] [address], [place], [address], [place] [facility] 11/08/2018 12:51:39 03/26/18 98 [facility] 01/14/2016 11:38:30 02/28/18 91 Cyrosurgery of Cervix completed Radha Miller APRN [address], [place], [address], [place] - [facility] 11/08/2018 12:51:57 06/10/18 84 Diagnostic Laparoscopy completed Nedra Montero [place] - [facility] 01/14/2016 11:38:04 02/28/18 71 tonsilectomy/doroteo noids completed Shameka Shannon [place] - [facility] 02/10/2018 09:09:03 [facility] 01/14/2016 11:37:36 Imaging Results None recorded. Procedure Notes None recorded. Medical Equipment None Reported. Allergies Allergen ID Allergen Name Allergen Category Reaction Reaction Severity Criticality Documentation Date Start Date Code Code System Note Provider Name and Address Organization Details Recorded Time 74511 penicilli n V potassium medicatio n anaphylax is Not available Not available 12/05/20152007 5 RxNorm React ion: Anaph ylaxi s; Comme nt: Penic illin V Potinessa sium; Not Available [facility] 09:20:16 Medications Name Sig Start Date Stop Date Status Note LastModified by Organization Details LastModified Time cyclobenz aprine 10 mg tablet 11/02 completed Not Available Not Available Not Available bupropion HCl SR 150 mg tablet,12 hr sustained -release qd active Not Available Not Available Not Available neomycin- polymyxin -hydrocor t 3.5 mg/mL-10, 000 unit/mL-1 % ear solution 05/30 completed Not Available Not Available Not Available nystatin 100,000 unit/mL oral suspensio n 02/02 completed Not Available Not Available Not Available clindamyc in HCl 300 mg capsule 02/08 completed Not Available Not Available Not Available azithromy marylou 250 mg tablet 06/20 completed Not Available Not Available Not Available Lidocaine Viscous 2 % mucosal solution 02/10 completed Not Available Not Available Not Available fluconazo le 150 mg tablet Take 1 tablet by oral route for 1 day. 01/09 completed Not Available Not Available Not Available valacyclo vir 1 gram tablet prn active Not Available Not Available Not Available hydrocodo ne 5 mg-acetam inophen 325 mg tablet 05/30 completed Not Available Not Available Not Available ondansetr on HCl 8 mg tablet 11/02 completed Not Available Not Available Not Available Avelox 400 mg tablet 11/19 completed Avelox Oral Tablet 400 mg;Recor ded Status: Recorded on: 12/02/19 08 10:02PM; Disconti nued Status: Disconti nued on: 11/20/19 11 10:26AM; User: [email or web address] Not Available Not Available Not Available promethaz ine 12.5 mg tablet 01/09 completed Not Available Not Available Not Available ondansetr on HCl 4 mg tablet 02/02 completed Not Available Not Available Not Available prednison e 20 mg tablet 02/10 completed Not Available Not Available Not Available alendrona te 70 mg tablet Take 1 tablet every week by oral route. active Not Available Not Available No t Available clonazepa m 0.5 mg tablet prn active Not Available Not Available Not Available midodrine 5 mg tablet qd active Not Available Not Available Not Available acyclovir 400 mg tablet 02/02 completed Not Available Not Available Not Available tretinoin 0.05 % topical cream APPLY CREAM TOPICALL Y TO AFFECTED AREA AT BEDTIME active Not Available Not Available No t Available ciproflox acin 500 mg tablet 11/02 completed Not Available Not Available Not Available sulfameth oxazole 800 mg-trimet hoprim 160 mg tablet 01/09 completed Not Available Not Available Not Available tramadol 50 mg tablet TAKE 1 TABLET BY MOUTH THREE TIMES DAILY active Not Available Not Available No t Available ciclopiro x 8 % topical solution 11/02 completed Not Available Not Available Not Available BD Luer-Michael Syringe 3 mL 23 gauge x 1 03/01 completed Not Available Not Available Not Available Lidoderm 5 % topical patch apply 1 patch by transder mal route once daily (May wear up to 12hours. ), occasion ally uses two 02/02 completed Lidoderm Topical Adhesive Patch, Medicate d 5 %(700 mg/patch );Record ed Status: Recorded on: 11/20/19 11 10:38AM; User: [email or web address] Not Available Not Available Not Available dicyclomi ne 20 mg tablet 02/08 completed Not Available Not Available Not Available hyoscyami ne 0.125 mg disintegr ating tablet 11/02 completed Not Available Not Available Not Available hydrocodo ne 7.5 mg-acetam inophen 325 mg tablet 02/08 completed Not Available Not Available Not Available cephalexi n 500 mg capsule 02/08 completed Not Available Not Available Not Available pantopraz ole 40 mg tablet,de layed release qd active Not Available Not Available Not Available oseltamiv ir 75 mg capsule 02/10 completed Not Available Not Available Not Available Prozac 20 mg capsule take 1 capsule (20 mg) by oral route once daily 02/02 completed Prozac Oral Capsule 20 mg;Recor ded Status: Recorded on: 11/20/19 11 10:38AM; User: [email or web address] Not Available Not Available Not Available ranitidin e 150 mg tablet 05/06 completed Not Available Not Available Not Available buspirone 10 mg tablet qd active Not Available Not Available Not Available clotrimaz ole-betam ethasone 1 %-0.05 % topical cream APPLY TO THE AFFECTED AND SURROUND ING AREAS OF SKIN BY TOPICAL ROUTE 2 TIMES PER DAY IN THE MORNING AND EVENING FOR 2 WEEKS active Not Available Not Available No t Available promethaz ine 25 mg tablet 05/30 completed Not Available Not Available Not Available etodolac 400 mg tablet 02/08 completed Not Available Not Available Not Available diclofena c sodium 50 mg tablet,de layed release 02/10 completed Not Available Not Available Not Available ibuprofen 600 mg tablet 01/09 completed Not Available Not Available Not Available ondansetr on 4 mg disintegr ating tablet 11/02 completed Not Available Not Available Not Available cefdinir 300 mg capsule 01/09 completed Not Available Not Available Not Available colestipo l 1 gram tablet 1 po qd active Not Available Not Available Not Available doxycycli ne hyclate 100 mg tablet 02/02 completed Not Available Not Available Not Available Lortab 5 mg-500 mg tablet take 1 tablet by oral route every 6 hours as needed for pain 02/02 completed Lortab Oral Tablet 5-500 mg;Recor ded Status: Recorded on: 11/20/19 11 10:38AM; User: [email or web address] Not Available Not Available Not Available amoxicill in 875 mg-potass ium clavulana te 125 mg tablet 02/02 completed Not Available Not Available Not Available oxycodone 5 mg tablet 01/09 completed Not Available Not Available Not Available hydroxyzi ne pamoate 25 mg capsule TAKE 1 TABLET BY MOUTH FOUR TIMES DAILY active Not Available Not Available No t Available azithromy marylou 500 mg tablet 02/08 completed Not Available Not Available Not Available Premarin 0.625 mg/gram vaginal cream Insert 0.5 g twice a week by vaginal route. active Not Available Not Available No t Available bupropion HCl XL 300 mg 24 hr tablet, extended release 1 PO QD 05/06 completed Not Available Not Available Not Available bupropion HCl XL 150 mg 24 hr tablet, extended release 02/10 completed Not Available Not Available Not Available nitrofura ntoin monohydra te/macroc rystals 100 mg capsule 02/02 completed Not Available Not Available Not Available duloxetin e 20 mg capsule,d elayed release 02/08 completed Not Available Not Available Not Available pregabali n 150 mg capsule tid active Not Available Not Available Not Available Lyrica 75 mg capsule takes tid and at hs takes 150mg 02/02 completed Lyrica Oral Capsule 75 mg;Recor ded Status: Recorded on: 11/20/19 11 10:38AM; User: [email or web address] Not Available Not Available Not Available Lyrica 100 mg capsule 02/08 completed Not Available Not Available Not Available Lyrica 300 mg capsule 02/10 completed Not Available Not Available Not Available fenofibra te nanocryst allized 145 mg tablet 11/02 completed Not Available Not Available Not Available Havrix (PF) 1,440 WIN unit/mL intramusc ular syringe 04/21 completed Not Available Not Available Not Available Xifaxan 550 mg tablet qd active Not Available Not Available Not Available Suprep Bowel Prep Kit 17.5 gram-3.13 gram-1.6 gram oral solution 02/10 completed Not Available Not Available Not Available Vitals Date Recorded Body height Body mass index (BMI) Body weight Systolic And Diastolic Provider Name and Address Organization Details Last Updated DateTime 05/07/2019 157.48 cm 23.4 kg/m2 52667.82 g 113/58 mm[Hg] Shameka Shannon [place] - [facility] 05/07/2019 13:02:58 Date Recorded Body height Body mass index (BMI) Body weight Systolic And Diastolic Provider Name and Address Organization Details Last Updated DateTime 06/21/2019 157.48 cm 23.8 kg/m2 82375.01 g 116/72 mm[Hg] Nedra Montero [place] - [facility] 06/21/2019 08:58:43 Date Recorded Body height Body mass index (BMI) Body weight Systolic And Diastolic Provider Name and Address Organization Details Last Updated DateTime 08/10/2019 157.48 cm 24.1 kg/m2 37843.19 g 118/72 mm[Hg] Nedra Montero [place] - [facility] 08/10/2019 14:25:52 Date Recorded Body height Body mass index (BMI) Body weight Systolic And Diastolic Provider Name and Address Organization Details Last Updated DateTime 11/02/2018 157.48 cm 25.4 kg/m2 26204.34 g 112/68 mm[Hg] Shameka Shannon [place] - [facility] 11/02/2018 11:03:35 Date Recorded Body height Body mass index (BMI) Body weight Provider Name and Address Organization Details Last Updated DateTime 01/10/2020 157.48 cm 23.6 kg/m2 63248.42 g Shameka Shannon [place] - [facility] 01/10/2020 15:58:37 Social History Question Answer Notes LastModified by Organizat ion Details LastModified Time Tobacco Smoking Status Current Every Day Smoker Nedra dunn [place] - [facility] 01/14/2016 11:39:41 Do You Have An Advance Directive? No Information not available 02/03/2016 Are You Blind Or Do You Have Difficulty Seeing? No Information not available 02/03/2016 Is Blood Transfusion Acceptable In An Emergency? Yes Information not available 02/03/2016 What Is Your Level Of Caffeine Consumption? Heavy Information not available 02/03/2016 How Much Tobacco Do You Chew? None Information not available 02/03/2016 Are You Deaf Or Do You Have Serious Difficulty Hearing? No Information not available 02/03/2016 What Type Of Diet Are You Following? REGULAR Information not available 02/03/2016 Which Illicit Or Recreational Drugs Have You Used? Denies Information not available 02/03/2016 What Is The Highest Grade Or Level Of School You Have Completed Or The Highest Degree You Have Received? [id number] [email or web address] Information not available 02/10/2018 How Many Days Of Moderate To Strenuous Exercise, Like A Brisk Walk, Did You Do In The Last 7 Days? 1 [email or web address] Information not available 02/10/2018 On Those Days That You Engage In Moderate To Strenuous Exercise, How Many Minutes, On Average, Do You Exercise? 1 Information not available 02/10/2018 How Hard Is It For You To Pay For The Very Basics Like Food, Housing, Medical Care, And Heating? 1 [email or web address] Information not available 02/10/2018 Live Alone Or With Others? With Others Information not available 02/03/2016 What Was The Date Of Your Most Recent Tobacco Screening? 05/07/2019 Information not available 05/07/2019 How Many Children Do You Have? 2 Information not available 02/03/2016 Performs Monthly Self-breast Exam? Yes Information no t available 02/03/2016 Do You Use Protection During Sex? No Information not available 02/03/2016 What Is Your Relationship Status? Information not available 02/03/2016 Seat Belts Used Routinely No Information not available 02/03/2016 Are You Sexually Active? Yes Information not available 02/03/2016 How Much Tobacco Do You Smoke? 1 PPD Information not available 01/14/2016 General Stress Level Medium [email or web address] Information not available 05/07/2019 Do You Use Sunscreen Routinely? Yes Information not available 02/03/2016 On What Date Was Tobacco Cessation Counseling Provided? 05/07/2019 [email or web address] Information not available 05/07/2019 How Many Years Have You Smoked Tobacco? 40 Off And On [email or web address] Information not available 02/10/2018 Do You Have Difficulty Walking Or Climbing Stairs? No Information not available 02/03/2016 Sex: Female Functional Status Question Answer Note LastModified by Organizat ion Details LastModified Time What is your level of alcohol consumption? None Information not available 02/03/2016 Do you or have you ever used smokeless tobacco? Never used smokeless tobacco [email or web address] Information not available 11/02/2018 Are you currently employed? No Information not available 02/03/2016 Urinary incontinence assessment performed? Yes Information not available 02/10/2018 Are you able to walk? YESWOREST [email or web address] Information not available 02/10/2018 Do you have difficulty doing errands alone? No Information not available 02/03/2016 What is your occupation? disabled Information not available 01/14/2016 Do you have difficulty dressing, bathing, grooming, or toileting? No Information not available 02/03/2016 Do you or have you ever used e-cigarettes or vape? Never used electronic cigarettes [email or web address] Information not available 11/02/2018 What is your exercise level? None Information not available 02/03/2016 Mental Status Question Answer Note LastModified by Organization D etails LastModified Time Do you feel stressed (tense, restless, nervous, or anxious, or unable to sleep at night)? 1 [email or web address] Information not available 05/07/2019 Do you have difficulty concentrating, remembering or making decisions? No Information no t available 02/03/2016 Family History Relationship Description Onset Age of this Age Resolved Age Notes LastModified by Organization Details LastModified Time Mother Diabetes mellitus [email or web address] Not available 2015 11:34:54 Mother Pulmonary emphysema [email or web address] Not available 2015 11:35:03 Mother Hypothyroidi sm [email or web address] Not available 2015 11:35:12 Mother Myocardial infarction [email or web address] Not available 01/13 11:35:36 Mother Family history of stroke 80 [email or web address] Not available 2016 13:41:59 Father Family history of malignant neoplasm of lung [email or web address] Not available 2015 11:35:24 Medical History Condition Response Pancreatitis N Other N Atrial Fibrillation N congenital heart disease N Blood Diseases N Hyperthyroidism N Rheumatoid arthritis N Blood Transfusion N Erectile Dysfunction N amputation N Skin Lesions N Depression Y Pneumonia N Incontinence N Murmur N Edema N Alzheimer's Disease N Migraine Headaches N Tobacco Abuse N Anxiety Disorder Y Hemorrhoids N Obesity N Vision or Eye Problems N Arthritis N Restless Leg Syndrome N Polyps N Infertility N Carpal Tunnel N Acid Reflux (GERD) Y Cancer N Varicosities N Stroke N Tendonitis N Crohn's Disease N Hypercholesterolemia N Skin Cancer N Headaches N Fibromyalgia N Irritable Bowel Syndrome N Anal Fissure N Kidney Disease N Heart Problems N Hospitalizations Y Gallstones N Kidney or Bladder Problems N Goiter N Acne N Eating Disorder N [place]'s Esophagus N Hypertriglyceridemia N Constipation N Embolism N Vitamin B12 Deficiency N Deviated Septum N AIDS/HIV N Myocardial Infarction N Asthma N Mitral Valve Disorders N Vertigo N Hepatitis N Thyroid Cancer N Neuropathy Y History of DVT N Herniated Disc N Chicken Pox Y Von Willebrands Disease N Thrombophilias N Breast Cancer N Hernia N Plantar Fasciitis N Hypothyroidism N Lung Disease N Defects or Inherited Disease N Breast Problem N Ovarian Cyst N Anesthesia Complications N Testosterone Deficiency N Interstitial Cystitis N Congenital Anomalies N Hypoglycemia N Blood clot N Vitamin D Deficiency N Cellulitis N Endometriosis N Bladder or Kidney Problems N Fracture N Panic Disorder N Schizophrenia N Concussion N Spina Bifida N Osteoarthritis N Parkinson's Disease N Disc Protrusion N STI N Esophagitis N Angina N Thyroid Problems N GI Problems N ADD/ADHD N Anemia N Multiple Sclerosis N Abnormal PAP Y Lumbago N Mental Illness N Psychiatric Illness N Diabetes N Ovarian Cancer N Degenerative Disc Disease N Seizures/Epilepsy N Hyperlipidemia N Syncope N Insomnia N Eczema N Abuse/Domestic Violence N Attention Deficient Disorder N Dementia N Ulcerative colitis N Cerebrovascular Disease N Depression N Guillain-[place] N Sleep Apnea N Aneurysm N Bronchitis N Heart Disease N Hypertension N Pre-Eclampsia N Suicidal Ideation N Osteoporosis N Gynecological History Statement/Question Response Abnormal Pap Yes Date of Last Mammogram 10/04/2018 Post Menopausal Bleeding N STIs/STDs Yes Colposcopy 03/27/2018 HPV Vaccine N Current Control Method Menopause Age at Menarche 14 Age at First Child 29 Last Annual Exam/Provider 05/07/19 Ceci louis [employer] If Post Menopausal, Age at Menopause 40 Date of Last Colonoscopy 05/02/2017 Most Recent Bone Density 09/08/2017 Sexually Active? Y Date of Last Cervical Culture 05/07/2019 Date of Last Pap Smear 05/07/2019 Sexual Problems? Y Hormone Replacement Therapy N Obstetrics History GPAL:G 4 P 2 0 2 2 Type Value Full Term 2 Induced 2 Living 2 Total 4 Immunizations Vaccine Type Date Status Note Provider Nam e and Address Organization Details Recorded Time Influenza, split virus, quadrivalent, preservative 7 completed [place] [facility] 02/08/2017 13:40:07 Influenza, split virus, quadrivalent, preservative 8 completed [place]AN [place] - [facility] 02/10/2018 09:05:51 Influenza, split virus, quadrivalent, preservative 9 completed Shameka dunn [facility] 05/07/2019 12:58:33 Influenza, split virus, quadrivalent, preservative 6 completed Not Available [facility] 03/17/[facility] 03:54:20 Past Encounters Encounter ID Performer Location Encounter Start Date Encounter Closed Date Diagnosis/Indication Diagnosis SNOMED-CT Code Diagnosis ICD10 Code Diagnosis Note [id number] [facility] [address] [place] [address] 11/22/2006 00:00:00 [id number] [facility] [address] [place] [address] 11/19/2010 00:00:00 [id number] NATALIE Almonte [employer] [address] [place] [address] [place] [address] 02/03/2016 10:57:19 02/03/2016 12:26:34 Routine gynecologic examination done 3253111696 9101 Z01.419 Depression screening 171 512131 Z13.89 Diet education 32476830 Z71.3 Counseling 927412632 Z71 .9 Exercise counseljohnathan quinones Patient encouraged to exercise 30 minutes 5 days a week. Examinatio n of blood pressure 856939070 Z01.30 Screening for malignant neoplasm of cervix 238359289 Z12.4 Pap Exam The patient underwent Pap smear screening in [facility] with ASCCP consensus guidelines . If her Pap is ASCUS, reflex HPV testing will be performed. If her Pap is WNL positive HPV ( and negative 16/18) or is ASCUS HPV negative, she will be re-screene d in 1 year with Pap only. If her Pap smear is ASCUS HPV+, ASC-H, LSIL, HSIL, or MORE, she will be referred for immediate colposcopy . The patient states that she understand s and agrees with this plan. Administra tion of influenza vaccine 00015709 Z23 Patient presents for flu vaccinatio n today. No fever. No history of egg allergy. Administer ed as below. 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 Diet education 30930653 Z71.3 Counseling 513000526 Z71 .9 Exercise counsellin g. Patient encouraged to exercise 30 minutes 5 days a week. Examinatio n of blood pressure 168656235 Z01.30 HPV - Luci n papillomavirus test positive 361648168 R87.619 Screening for malignant neoplasm of cervix 596793299 Z12.4 Screening mammography 24 333777 Z12.31 Screening for malignant neoplasm of colon 330358295 Z12.11 Plans to have completed after the first of the year. Screening for malignant neoplasm of ovary 970738707 Z12.73 [id number] NATALIE Almonte [employer] [address] [place] [address] [place] [id number] 02/10/2018 08:56:59 02/10/2018 10:47:03 Routine gynecologic examination done 7660555704 9101 Z01.419 Depression screening 171 540225 Z13.89 PHQ-9 completed today. Diet education 68973637 Z71.3 Counseling 514984711 Z71 .82 Exercise counsellin g. Patient encouraged to exercise 30 minutes 5 days a week. Examinatio n of blood pressure 944074977 Z01.30 HPV - Luci n papillomavirus test positive 436204972 R87.619 Screening for malignant neoplasm of cervix 276028188 Z12.4 R87.810 Patient advised that I will follow up with results. Screening mammography 24 974028 Z12.31 Screening for malignant neoplasm of colon 115953549 Z12.11 Pt had 05/2017 @ [facility] Vaginal dryness 23320328 N89.8 Viral screening 45191022 4 Z11.59 One time Hep C screening for individual s born between the years of 5000[address]4359. 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 [address] [place] [address] JOHNATHAN Irving [phone] 7 03/10/2017 13:56:24 03/10/2017 14:27:42 HPV - Human papillomavirus test positive [id number] R87.545 [id number] NATALIE Almonte [employer]OW TR[employer] OPERATOR [address] [place] [address] JOHNATHAN Irving [id number] 7 09/12/2017 10:07:38 09/12/2017 11:09:03 HPV - Human papillomavirus test positive 993748296 R87.163 [id number] NATALIE Almonte [employer]OW TR[employer] OPERATOR [address] [place] [address] JOHNATHAN Irving [id number] 7 05/07/2019 12:48:08 05/07/2019 15:17:23 Cervical intraepithelial neoplasia grade 1 252820501 N87.0 R87.810 Z11.3 PAP 2/3 after LEEP Routine gy necologic examination done [id number] 9101 Z01.419 Depression screening 171 265259 Z13.89 PHQ-9 completed today. Diet education 52424799 Z71.3 Counseling 136260831 Z71 .82 Exercise counseljohnathan quinones Patient encouraged to exercise 30 minutes 5 days a week. Examinatio n of blood pressure 974175240 Z01.30 Vaccine de clined by patient [id number] 02 Z28.21 Pt declined flu vaccine today. Screening mammography 24 338971 Z12.31 MMG is due 09/2019 Screening for malignant neoplasm of colon 635061582 Z12.11 Colonoscop y 05/02/17 @ [facility] - repeat in 5 years Vaginal dryness 07901503 N89.8 Continue Premarin cream. 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 Worst histology have been mild dysplasia 2017. Currently unsatisfac tory possibly my visualizat ion with history of HPV effect on prior ECC. LEEP will be more conclusive on final histology. Plan 2-week postop follow-up and next cytology HPV in 6 months Abdominal bloating 45561 9008 R14.0 Incidental symptom mentioned at completion of visit. Will address further at future visits to include bimanual exam and possible pelvic ultrasound as patient has concerns about ovarian cancer, that were the indication for today's visit not fully addressed yet [id number] MD Eve Gipson [employer]OW TRUCK OPERATOR [address] [place] [address] JOHNATHAN Irving [phone] 7 05/30/2018 14:44:48 05/30/2018 15:54:22 HPV - Human papillomavirus test positive 088182384 R87.810 R87.619 Cervical intraepithelial neoplasia grade 1 153445241 N87.0 04/21/18 LEEP mild dysplasia negative margin. Advise every 6 month follow-up Pap and HPV surveillan ce until negative x3, next due September Atrophy of vagina 005611 009 N95.2 Continue Premarin cream. Discussed possible limitation s of cervical screening with agglutinat ed os [id number] NATALIE Almonte TOW TRUCK OPERATOR [address] [place] [address] JOHNATHAN Irving [id number] 7 11/02/2018 10:46:32 11/02/2018 11:48:50 Vaginal dryness 60902239 N89.8 Continue Premarin cream. Abnormal c ervical Papanicolaou smear 438939707 R87.619 Z11.3 Patient advised that I will follow up with results. - LEEP mild dysplasia negative margin. Advise every 6 month follow-up Pap and HPV surveillan ce until negative x 3, next due September. Dysuria 83783231 R30.0 Vaginal irritation 42316 6004 N89.8 Vaginal irritation on right vulva x 1 week since using MrYosef Armas bubble bath.Will try topical cream.If this does not improve after 10-14 days, will schedule for vulvar bx. Screening mammography 24 453846 Z12.31 [id number] MD Eve Gipson TOW TRUCK OPERATOR [address] [place] [address] JOHNATHAN Irving [id number] 7 06/21/2019 08:46:47 06/21/2019 10:44:51 Human papillomavirus deoxyribonucleic acid detected, high risk on cervical specimen 523943226 R87.810 Cervical intraepithelial neoplasia grade 1 226994178 N87.0 Per 2019 LEEP with negative margins.. Currently foreshorte vignesh atrophic cervix with cervical stenosis precluding any meaningful colposcopy although no external lesions. Suspect inadequate ECC today even after dilation. We will continue to monitor with available cytology. Next due in 6 months discussed if any high-grade changes or if persistent abnormal cytology persist could potentiall y consider for hysterecto my as definitive therapy. Condyloma acuminata of vagina 588449285 A63.0 . Patient is symptomati c at introitus greater than 1 year without focal lesions being identified until today condyloma changes at 7:00 biospy todaydiffu se skin changes biopsy of 5:00Suspec t condyloma plus or minus dysplastic changes. If mild dysplastic changes would consider for wide excision outpatient here. If high-grade changes will refer for possibly more extensive excision and Cigarette smoker 9521526 7 F17.210 Currently using nicotine patch OTC. Relationsh ip of smoking to poor HPV client reviewed [id number] DO Gloria [place] TOW TRUCK OPERATOR [address] [place] [address] JOHNATHAN Irving [id number] 7 08/10/2019 14:20:27 08/10/2019 15:19:24 Pruritus of vagina 70680266 L29.3 [id number] Radha Miller APRN [place] TOW TRUCK OPERATOR [address] [place] [address] JOHNATHAN Irving [phone] 7 01/10/2020 15:39:19 01/10/2020 17:16:05 Cervical intraepithelial neoplasia grade 1 226879694 N87.0 R87.810 Patient advised that I will follow up with results. Osteoporosis 05087723 M8 1.0 Human omar llomavirus deoxyribonucleic acid detected, high risk on cervical specimen 690007288 R87.810 Cigarette smoker 0268977 7 F17.210 Currently using nicotine patch OTC. Urged to quit. Discussed HPV and smoking. Vulval intraepithelial neoplasia grade 3 244231482 D07.1 History of simple partial vulvectomy @ on 07/13/19, with high-grade dysplasia on the right and low-grade dysplasia on the left and positive margins. is following her closely, every 12 weeks. Health Concerns Section Related Observation LastModified by Organization Detai ls LastModified Time None Recorded Concern Status LastModified by Organization Details LastModified Time None Recorded Advance Directives Directive N: Payers Insurance Date Sequence Insurance Name Policy Number Policy Rhodes Covered Member ID Rhodes Member ID Guarantor Name 02/08/2017 1 [place] Luna Foreman [id number] Luna Foreman 02/03/2020 [employer] - [place] [facility] (MEDICARE) Luna Foreman [id number] Luna Foreman 02/03/2020 1 [place]/ ADVANTAGE - PPO) [id number] Luna Foreman [id number] Luna Foreman 05/07/2019 1 [employer] (MEDICARE REPLACEMENT/ ADVANTAGE - PPO) Luna Foreman [id number] Luna Foreman Notes Date Note Type Note Provider Name and Address Organization Details Recorded Time 11/02/2018 text/html Abnormal Pap SmearReported by PatientHPIFor associated symptoms, patient reportsvaginal dischargebut reportsno vaginal/vulvar pain,no vulvar lesions/growths,no postcoital bleeding, andno dyspareunia. For onset/timing, patient reportspap smear performed on: (02/10/2018). For quality, patient reportspap smear results: ascus+hpv. For context, patient reportsprior abnormal pap smear results: ascus+hpvandprior colposcopy results: marylou i.Luna presents today for her repeat PAP 1/3 since LEEP.She has not been SA since February. She broke up with Nelson after he did not come see her during her surgeries in March and April. Radha Miller, [employer] [address], [place], [address], [place] - [facility] 11/02/2018 11:40:32 05/07/2019 text/html Annual - MOBRepo rted by PatientHistoryFor history, patient reportslast annual exam: 02/10/2018,no gynecologic complaints, andno change in interval history.ContraceptionF or current contraception, patient reportsnew sexual partner (1 time since last visit, none current.)but reportssatisfied with current contraception,tubal ligation, andpostmenopausal.Prev entative measuresFor preventive measures, patient reportshistory of abnormal pap smear/cervical dysplasia (this is pap 2/3)but reportsmammogram performed within the past year,encourage self breast examination,encourage regular exercise, andencourage no tobacco use. Luna is a 58 year old who presents today as an established for an annual exam. Her previous annual exam was 02/10/18 with myself. She is naturally menopausal. She has been menopausal since age 40. She is currently using PVC twice per week. She admits having the following menopausal related symptoms that concern her vaginal dryness and she denies prolapse. She is no longersexually active.She broke up with Nelson after her last appt here. She did have sex 1 time with a new partner since her last visit. Other than needing a preventive exam, is complaining of GI issues and is having a scope next month in [facility] . Radha Miller APRN [facility] [address], [place], [address], [place] - [facility] 05/07/2019 13:40:58 06/21/2019 text/html Patient is an established patient who presents for follow up onabnormal pap testing . At the last visit where this was addressed, which was her last annual exam with ceci Miller APRN on 05/07/2019she was noted to have mcfp problems with abnormal pap and no treatment was started yet, pending test results which she is here today to discuss. Pertinent prior testing: see below: s/p Cryo of cervix in - 2009 reports pap with Family child protective services social worker in [facility] 11/19/10 wnl no hpv testing 02/03/16 wnl pos hpv will f/u testing 1 year 02/08/17 wnl pos hpv 16 (scheduled colpo) 03/10/17 ECC- MARYLOU-I and HPV changes of squamous cells. plan repeat pap q 6month x 3 negative 09/12/17 ascus pos hpv 02/10/18 ascus pos hpv 03/27/18 +hpv ecc 03/21/18 LEEP mild dysplasia with neg margin 11/02/18 Ascus pos HPV 05/07/2019 wnl pos HPV 16 She describes her current symptoms as none. new findings of vulvar changes, biopsy today. After discussion today, she is agreeable to a plan of having additional testing-see plan for details. The specifics of treatment and timing of followup visit(s) are outlined below. Surgical history is as above. She states she is also had some external itching for a while but has not noticed anything raised or rough.. Ceci had prescribed Lotrisone as far back as 2016. October 2018 visit indicated some focal right vulvar pruritus the patient thought might of been associated with new soap use and Ceci had advised a trial of Lotrisone then but to return for vulvar biopsy if symptoms no better. When she was here for the April 2019 annual visit no mention of itching symptom more physical changes at introitus, but patient states that the similar itching that she has had for a while. States the cream that Ceci gave her helps for a while. She is seen no bleeding whatsoever. History of premature menopause age 40. She is using Premarin cream but no systemic HRT. Not currently sexually active. Continues to smoke but has nicotine patch on today and is trying to quit. Lets me know that her daughter, Nelly, that I had delivered many years ago has graduated nursing school at [employer] as of January 2019 and currently working in the ICU there in [place], is engaged AND planning to get in [facility] Chelsey Mascorro MD [address], [place], [address], [employer] - [facility] 06/21/2019 12:43:04 08/10/2019 text/html Luna is a 58 year old who presents today with acute postoperative concern.underwent simple partial vulvectomy 07/13/2019 at for ELVI.c/o of stitch that is festered and desires removed Reports being seen at and had several stitches removed but there are several present. Due to itching, feels as if there are several other stitches needing to be removed. Reports taking Benadryl with minimal improvement in itching, Recommend cold compresses and started on Vistaril due to itching preventing her from sleeping. Maggi Martinez DO [address], [place], [address], [place] - [facility] 08/12/2019 13:02:56 01/10/2020 text/html Abnormal Pap SmearReported by PatientHPIFor onset/timing, patient reportspap smear performed on: (05-07-2019). For quality, patient reportspap smear results: __ (hpv 16). For context, patient reportsprior colposcopy results: marylou i (elvi 3)andprior leep. For associated symptoms, patient reportsno vulvar lesions/growths,no vaginal discharge,no postcoital bleeding, andno dyspareunia. Luna presents today complaining of an abnormal PAP test. She presents with a history of abnormal PAP. Her initial abnormal PAP was in 1990. She has had colposcopies and LEEPs.Her last colposcopy revealed MARYLOU-I and ELVI-3 on her vulva @ 5 and 7. She underwent an extensive vulvectomy at on 07/13/19. She is now seeing every 12 weeks. She is here today for repeat PAP / after her last colposcopy. 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 plan repeat pap q 6 month x 3 negative 09/12/17 ascus pos hpv 02/10/18 ascus pos hpv 03/27/ +hpv ecc 03/21/18 LEEP mild dysplasia with neg margin 11/02/18 Ascus pos HPV 05/07/2019 wnl pos HPV //20 colpo MARYLOU-I and ELVI-3 on her vulva @ 5 and 7 Radha Miller, [employer] [address], [place], [address], [place] [facility] 01/10/2020 17:09:09 OBGyn Episode No OBEpisode recorded.
[2024-09-21] MEDS: DENOSUMAB 60 MG/ML SYRINGE SUBCUT (13:14)
[2024-09-21 13:15] VITALS: BP 109/64; PULSE 73; RESP 17; O2SAT 95
== END 2024-09-21 13:30 | disposition home or self-care (01) ==
LOC: INF 13:00
PROVIDERS: PCP Nurse Practitioner Family; Visit Provider Internal Medicine
DX: M81.0 Age-related osteoporosis without current pathological fracture (principal)
CPT/HCPCS: 96372; J0897

== ENCOUNTER 2024-10-31 07:06 | Outpatient (CLI) | payer MEDICARE, MEDICAID, SELFPAY ==
--- OUTSIDE RECORDS SUMMARY | 2024-10-01 08:30 | XMS_ITS | Encounter Summary ---
Author Organization [facility] Address [address] [place] [address] Care Team Providers Care Patrol Captain Name Role Phone Naya Goodwin FACILITIES ADMINISTRATOR Primary Care Provider [phone] Chelsey Mascorro Unavailable Yong Mata MD Unavailable Malena Burton APRN Unavailable [phone] Reason for Visit * Reason Comments flare up Encounter Details Date Type Department Care Team (Late st Contact Info) Description 10/01/2024 8:30 AM EDT Office Visit [facility] [address] [place] [address] Nevaeh Harrison, FACILITIES ADMINISTRATOR [address] [facility] [address] [place] [address] Yeast infection of the vagina (Primary Dx); Vaginal itching; Vulvar dysplasia; Occupational exposure in workplace Social History Tobacco Use Types Packs/Day Years Used Date Smoking Tobacco: Former Cigarettes 1 35 0 04/1985 - 04/2020 Passive Smoke Exposure: Past Smokeless Tobacco: Never Alcohol Use Standard Drinks/Week Comments No 0 (1 standard drink = 0.6 oz pur e alcohol) PHQ-2 Answer Date Recorded Patient Health Questionnaire-2 Score 2 10/01/2024 PHQ-9 Answer Date Recorded Patient Health Questionnaire-9 [...] Sign Reading Time Taken Comments Blood Pressure 109/72 10/01/2024 8:47 AM EDT Pulse 76 10/01/2024 8:47 AM EDT Temperature 36.4 C (97.5 F) 10/01/2024 8:47 AM EDT Respiratory Rate 14 10/01/2024 8:47 AM EDT Oxygen Saturation 95% 10/01/2024 8:47 AM EDT Inhaled Oxygen Concentration - - Weight 59.1 kg (130 lb 4.7 oz) 10/01/2024 8:47 A M EDT Height 160 cm (5' 3 ) 10/01/2024 8:47 AM EDT Body Mass Index 23.08 10/01/2024 8:47 AM EDT documented in this encounter Functional Status * Over the past 2 weeks, how often have you been bothered by any of the following problems? Question Answer Date of Assessment Author Little interest or pleasure in doing things Not at all 10/01/2024 8:49 AM EDT Agustin Leblanc ae Feeling down, depressed, or hopeless More than half the days 10/01/2024 8:49 AM EDT Marjorie Leblanc Patient Health Questionnaire-2 Score 2 10/01/2024 8:49 AM EDT Marjorie Leblanc * How difficult have these problems made it for you to do your work, take care of things at home, or get along with other people? Answer Date of Assessment Author Somewhat difficult 10/01/2024 8:49 AM EDT Marjorie Cruz documented as of this encounter Miscellaneous Notes * Suki Jenkins - 10/01/2024 9:51 AM EDT Images from the original note were not included. [id number] Understanding Vulvar Biopsy A vulvar biopsy is a test used to check for vulvar cancer or another skin disease affecting the vulva. The vulva is the outer part of a woman?s genitals. It includes the inner and outer lips (labia) of the vagina, the clitoris, the opening of the vagina and its glands, and the skin between the vagina and the anus. During a biopsy, small tissue samples are taken from changed (abnormal) areas. The tissue is then sent to a lab and tested for cancer or other types of skin disease. How to say it [facility] BY-op-see Why a vulvar biopsy is done A vulvar biopsy may be done if you have signs and symptoms such as: ? Areas of skin on your vulva that are white or that turn white after a diluted vinegar-like solution is put on them ? Patches of skin that are red, pink, lott, brown, black, or bumpy ? A sore that doesn?t heal ? Thicker skin or a lump or growth on the vulva ? Genital warts that don?t go away ? Itching, pain, or burning ? Bleeding or discharge that isn't related to a normal period How a vulvar biopsy is done A biopsy is a quick procedure. It?s often done in a healthcare provider?s office. You may be told to take rthp-mdy-fnqjlkg pain medicine before the biopsy. This can help lessen pain after the biopsy. This is what a biopsy may be like: ? The healthcare provider may use a tool called a colposcope to do the biopsy. This scope has magnifying lenses that let the provider clearly see even small changed areas of skin. The scope stays outside your body. It doesn?t touch you. ? The skin in the area is cleaned with special swabs. Medicine may be put on the skin to numb it. Then a small needle is used to inject medicine into the area to help prevent pain during the biopsy. ? When the area is numb, the provider will remove a tiny piece (sample) of the changed skin. This is done with a small sharp tool. This is called a punch biopsy. Sometimes an incisional biopsy is done. This is when a thin slice of the skin is removed with a sharp blade (scalpel). In some cases, theentire patch of changed skin is removed. This is called an excisional biopsy. A clotting material may be put on the biopsy site to stop any bleeding. Your healthcare provider will tell you which kindof biopsy you will have. ? If the provider takes a larger piece of skin, the area will then be closed with stitches (sutures). ? You'll be told how to care for the area to help it heal after the biopsy. The tissue removed during the biopsy is then checked under the microscope and tested by a healthcare provider called a pathologist. This provider looks for precancer or cancer cells in the biopsy sample. Tests can also show the presence of some other skin diseases. Ask your healthcare team how soonyou'll get the results of your biopsy. Your healthcare provider will tell you if you need any follow-up tests. Risks of a vulvar biopsy ? Pain ? Infection ? Bleeding ? Blood blister (hematoma) ? Bruising ? Loss of skin color (hypopigmentation) or increased skin color (hyperpigmentation) in the biopsy area ? Scarring Know what to expect after the biopsy. Ask what type of pain medicine you can use and how to care for the biopsy area. Also ask your healthcare provider what signs to watch for and when to call. Know how to get help after office hours and on weekends and holidays. Last Reviewed Date: 2021 00:00:00 ?? [id number] [employer]. All rights reserved. This information is not intended as a substitute for professional medical care. Always follow your healthcare professional's instructions. * Sadi Geller - Suki Quan - 10/01/2024 9:51 AM EDT Images from the original note were not included. [id number] Understanding Vulvar Biopsy A vulvar biopsy is a test used to check for vulvar cancer or another skin disease affecting the vulva. The vulva is the outer part of a woman?s genitals. It includes the inner and outer lips (labia) of the vagina, the clitoris, the opening of the vagina and its glands, and the skin between the vagina and the anus. During a biopsy, small tissue samples are taken from changed (abnormal) areas. The tissue is then sent to a lab and tested for cancer or other types of skin disease. How to say it [facility] BY-op-see Why a vulvar biopsy is done A vulvar biopsy may be done if you have signs and symptoms such as: ? Areas of skin on your vulva that are white or that turn white after a diluted vinegar-like solution is put on them ? Patches of skin that are red, pink, lott, brown, black, or bumpy ? A sore that doesn?t heal ? Thicker skin or a lump or growth on the vulva ? Genital warts that don?t go away ? Itching, pain, or burning ? Bleeding or discharge that isn't related to a normal period How a vulvar biopsy is done A biopsy is a quick procedure. It?s often done in a healthcare provider?s office. You may be told to take uiyl-kmz-vidcajp pain medicine before the biopsy. This can help lessen pain after the biopsy. This is what a biopsy may be like: ? The healthcare provider may use a tool called a colposcope to do the biopsy. This scope has magnifying lenses that let the provider clearly see even small changed areas of skin. The scope stays outside your body. It doesn?t touch you. ? The skin in the area is cleaned with special swabs. Medicine may be put on the skin to numb it. Then a small needle is used to inject medicine into the area to help prevent pain during the biopsy. ? When the area is numb, the provider will remove a tiny piece (sample) of the changed skin. This is done with a small sharp tool. This is called a punch biopsy. Sometimes an incisional biopsy is done. This is when a thin slice of the skin is removed with a sharp blade (scalpel). In some cases, theentire patch of changed skin is removed. This is called an excisional biopsy. A clotting material may be put on the biopsy site to stop any bleeding. Your healthcare provider will tell you which kindof biopsy you will have. ? If the provider takes a larger piece of skin, the area will then be closed with stitches (sutures). ? You'll be told how to care for the area to help it heal after the biopsy. The tissue removed during the biopsy is then checked under the microscope and tested by a healthcare provider called a pathologist. This provider looks for precancer or cancer cells in the biopsy sample. Tests can also show the presence of some other skin diseases. Ask your healthcare team how soonyou'll get the results of your biopsy. Your healthcare provider will tell you if you need any follow-up tests. Risks of a vulvar biopsy ? Pain ? Infection ? Bleeding ? Blood blister (hematoma) ? Bruising ? Loss of skin color (hypopigmentation) or increased skin color (hyperpigmentation) in the biopsy area ? Scarring Know what to expect after the biopsy. Ask what type of pain medicine you can use and how to care for the biopsy area. Also ask your healthcare provider what signs to watch for and when to call. Know how to get help after office hours and on weekends and holidays. Last Reviewed Date: 2021 00:00:00 ?? [id number] [employer]. All rights reserved. This information is not intended as a substitute for professional medical care. Always follow your healthcare professional's instructions. * Progress Notes - Nevaeh Harrison APRN - 10/01/2024 8:30 AM EDTAssociated Order(s): Biopsy vulva Post-Procedure Diagnose(s): Vulvar dysplasia Images from the original note were not included. Patient ID: Luna Foreman is a 63 y.o. female. Referring Physician: No referring provider defined for this encounter. Primary Care Provider: Naya Goodwin APRN History of Present Illness: Mrs. Luna Foreman underwent simple partial vulvectomy on 03/05/22 showing SANJEEV 3, mucosal margins negative, negative for invasive carcinoma. She presents today after feeling swollen spot on right vulva that has been present x 1 week. Denies VB. Denies pelvic pain. Ongoing issues with yeast, plans to try new med called Vivjoa . Denies issues with bowel and bladder. Living with her boyfriend. Quit smoking >3 years ago, continues to be tobacco free. Treatment history: cryo in 199002/03/16 HPV + 02/13/17 HPV + 03/10/17 Colpo ECC with CIN1 09/12/17 ASCUS HPV+ 02/10/18 ASCUS HPV+ 03/27/18 Colpo ECC HPV+ 03/21/18 LEEP with mild dysplasia 11/02/18 ASCUS HPV+ 05/07/19 HPV16+. 07/03/19 Endocervical curettage with CIN1, vulvar biopsy with VIN3 07/13/19 left SPV, SANJEEV 3 with positive margins 08/20/19 vulvar biopsy with VIN3 01/28/20 ASCUS HPV + 03/19/20 RA [facility] BSO, no dysplasia or carcinoma on path 07/22/20 negative pap 01/06/22 vulvar biopsies showing SANJEEV 3, LSIL pap with HPV 16+ 05/20/22 Pap LSIL 06/04/22 vaginoscopy performed, biopsy obtained below cuff 11/18/22 ASCUS HPV + 04/15/23 ASCUS HPV + 05/17/23 Vaginoscopy - no lesions seen 11/02/23 ASCUS HPV + 06/20/24 ASCUS HPV + vaginoscopy negative today 10/01/24 Employer: No address on file. Travel History Relevant International Travel History: Travel Screening No screening recorded since 01/27/22 0000 Travel History Travel since 12/29/21 No documented travel since 12/29/21 Relevant Domestic Travel History: N/A Immunizations Reviewed VACCINE / DOSE DATE DATE DATE DATE DATE DATE Flu 2018 11/15/2019 12/22/2020 12/29/2021 12/03/2022 12/12/2023 Tetanus Pneumovax Shingles Review of Systems: ROS: 14 pt ROS performed with pertinent positives and negatives as noted in HPI. ROS otherwise negative Medical/Family/Social History: Past Medical History: Diagnosis Date Bulging lumbar [...] Does not use CPAP currently Vulvar cancer ([facility]) 07/13/2019 Malignant neoplasm of vulva, unspecified Past Surgical History: Procedure Laterality Date APPENDECTOMY N/A Appendectomy from [facility] BACK SURGERY 04/23/2024 pt reported CHOLECYSTECTOMY N/A Cholecystectomy from [facility] COLONOSCOPY DENTAL SURGERY N/A Dental surgery from [facility] HYSTERECTOMY N/A Hysterectomy from [facility] OTHER SURGICAL HISTORY N/A Open insertion of stimulator generator into back subcutaneous tissue and fascia from [facility] TONSILECTOMY, ADENOIDECTOMY, BILATERAL MYRINGOTOMY AND TUBES N/A Tonsillectomy With Adenoidectomy from [facility] TUBAL LIGATION N/A Tubal Ligation from [facility] VULVA SURGERY N/A Vulva surgery from [facility] She reports that she quit smoking about 4 years ago. Her smoking use included cigarettes. She started smoking about 39 years ago. She has a 35 pack-year smoking history. She has been exposed to tobacco smoke. She has never used smokeless tobacco. She reports that she does not currently use drugs after having used the following drugs: Marijuana. She reports that she does not drink alcohol. Medications/Allergies: Current Outpatient Medications: acetaminophen (Tylenol) 500 MG tablet, Take 2 tablets (1,000 mg) by mouth every 8 hours., Disp: 100tablet, Rfl: 1 busPIRone (Buspar) 10 MG tablet, Take 1 tablet (10 mg) by mouth 4 (four) times a day., Disp: , Rfl: calcitriol (Rocaltrol) 0.25 MCG capsule, Take 1 capsule (0.25 mcg) by mouth 1 (one) time each day.,Disp: 30 capsule, Rfl: 5 calcium carbonate (Tums) 500 MG chewable tablet, Chew 1 tablet (500 mg) 3 (three) times a day with meals., Disp: 90 tablet, Rfl: 3 cholecalciferol 25 MCG (1000 UT) tablet, Take 1 tablet by mouth daily., Disp: 30 tablet, Rfl: 11 clobetasol (Temovate) 0.05 % cream, Apply topically twice weekly., Disp: 30 g, Rfl: 0 Docusate Sodium (DSS) 100 MG capsule, Take 100 mg by mouth in the morning and 100 mg before bedtime., Disp: 28 capsule, Rfl: 0 escitalopram (Lexapro) 20 MG tablet, Take 1 tablet by mouth daily., Disp: , Rfl: fluticasone (Flonase) 50 MCG/ACT nasal spray, Administer 1 spray into each nostril daily., Disp: , Rfl: gabapentin (Neurontin) 300 MG capsule, Take 1 capsule (300 mg) by mouth 3 (three) times a day., Disp: , Rfl: lidocaine (Lidoderm) 5 % patch, APPLY 1 PATCH BY TOPICAL ROUTE ONCE DAILY (MAY WEAR UP TO 12HOURS.), Disp: , Rfl: LORazepam (Ativan) 1 MG tablet, Take 2 tablets (2 mg) by mouth nightly., Disp: , Rfl: methocarbamol (Robaxin) 500 MG tablet, START BY TAKING 1 PILL BY MOUTH EVERY NIGHT. SLOWLY INCREASETO 1 PILL 2X/DAY NEEDED, WITH A MAXIMUM OF 2 PILLS 3X/DAY., Disp: 180 tablet, Rfl: 10 Misc. Devices (Sitz Bath) misc, 1 kit 1 (one) time per week., Disp: 3 each, Rfl: 0 naloxone (Narcan) 4 mg/0.1 mL nasal spray, 1. Give 1 spray in nostril for no/slow breathing or cannot wake after opioid use 2. Call 911 3. Repeat in other nostril if symptoms continue, Disp: 1 each, Rfl: 0 nystatin (Mycostatin) cream, Apply to effected area twice daily or as needed to help with itching.,Disp: 30 g, Rfl: 1 ondansetron ODT (Zofran-ODT) 4 MG disintegrating tablet, Take 1 tablet (4 mg) by mouth every 6 hours as needed for nausea or vomiting., Disp: 20 tablet, Rfl: 0 oxyCODONE (Roxicodone) 5 MG immediate release tablet, Take 1 tablet (5 mg) by mouth every 6 hours as needed for moderate pain., Disp: 20 tablet, Rfl: 0 pantoprazole (Protonix) 40 MG EC tablet, Take 1 tablet (40 mg) by mouth daily before breakfast., Disp: , Rfl: promethazine (Phenergan) 12.5 MG tablet, Take 1 tablet (12.5 mg) by mouth every 8 hours as needed for nausea., Disp: , Rfl: Retin-A 0.05 % cream, APPLY TO THE AFFECTED AREA(S) BY TOPICAL ROUTE ONCE DAILY AT BEDTIME, Disp: ,Rfl: Allergies Allergen Reactions Penicillin V Anaphylaxis penicillin V potassium Penicillins Other - please document in the comment field Nausea/Vomiting Sulfa Drugs Other - please document in the comment field Nausea/vomiting Trimethoprim Nausea and Vomiting Varenicline Nausea and Vomiting Physical Exam: BSA: 1.62 meters squared Visit Vitals BP 109/72 (BP Location: Left arm, Patient Position: Sitting, BP Cuff Size: Adult) Pulse 76 Temp 36.4 ??C (97.5 ??F) (Temporal) Resp 14 Ht 1.6 m (5' 3 ) Wt 59.1 kg (130 lb 4.7 oz) LMP 02/29/2000 (Approximate) SpO2 95% BMI 23.08 kg/m?? OB Status Hysterectomy Smoking Status Former BSA 1.62 m?? Physical Exam Vitals and nursing note reviewed. Exam conducted with a journeyman electrician pv installer present. Constitutional: Appearance: Normal appearance. HENT: Head: Normocephalic. Eyes: Pupils: Pupils are equal, round, and reactive to light. Cardiovascular: Rate and Rhythm: Normal rate. Pulmonary: Effort: Pulmonary effort is normal. Abdominal: Palpations: Abdomen is soft. Genitourinary: General: Normal vulva. Exam position: Lithotomy position. Comments: Acetowhite change and diffuse redness noted throughout vagina. Previous scarring and biopsy sites indicated above. Red solomon above - this is an area that patient reports came up within the past week. Slight erythema noted, biopsy at 10 o'clock Vaginoscopy without concerns. Skin: General: Skin is warm. Neurological: General: No focal deficit present. Mental Status: She is oriented to person, place, and time. Patient ID: Luna Foreman is a 63 y.o. female. Encounter Diagnoses Name Primary? Yeast infection of the vagina Yes Vaginal itching Vulvar dysplasia Occupational exposure in workplace Biopsy vulva Date/Time: 10/01/2024 10:30 AM Performed by: Nevaeh Harrison APRN Authorized by: Nevaeh Harrison APRN Consent: Consent obtained: Verbal and written Consent given by: Patient Risks, benefits, and alternatives were discussed: yes Risks discussed: Bleeding and pain Alternatives discussed: Delayed treatment [place] protocol: Procedure explained and questions answered to patient or proxy's satisfaction: yes Relevant documents present and verified: yes Test results available: yes Imaging studies available: no Required blood products, implants, devices, and special equipment available: no Site/side marked: no Immediately prior to procedure, a time out was called: no Patient identity confirmed: Verbally with patient Indications: Indications: Lesion Anesthesia: Anesthesia method: Local infiltration Local anesthetic: Lidocaine 1% WITH epi Procedure specific details: Vulvar exam today with punch biopsy. Punch biopsy indication explained to patient. Patient explained of risks of bleeding and infection. Lidocaine injected at area to be biopsied. Hemostasis achievedwith silver nitrate after punch. Explained care of site after procedure. Informed patient she will be called with results regardless if normal or abnormal. Specimen labeled with location and patient ID. Sent to pathology. Consent signed. Post-procedure details: Procedure completion: Tolerated Results: Labs: WBC Count (10*3/uL) Date/Time Value 04/24/2024 0358 13.98 (H) HGB (g/dL) Date/Time Value 04/24/2024 0358 11.1 (L) HCT (%) Date/Time Value 04/24/2024 0358 33.5 (L) Platelet Count (10*3/uL) Date/Time Value 04/24/2024 0358 188 LDH, Plasma (U/L) Date/Time Value 08/10/2021 0331 292 (H) Creatinine, Plasma (mg/dL) Date/Time Value 08/14/2024 1242 0.95 AST, Plasma (U/L) Date/Time Value 11/02/2023 1633 18 Surgical Pathology: Final Diagnosis (no units) Date/Time Value 04/15/2023 1404 A. VULVA, BIOPSY: - MILD CHRONIC INFLAMMATION - NO EVIDENCE OF HIGH GRADE DYSPLASIA OR CARCINOMA Comment (no units) Date/Time Value 05/20/2022 1050 This amended report reflects the expert opinion of Dr. Joe Tuhrman. Dr. Thurman's entire consultation report ([id number]) can be viewed as a scanned document in linkedü. Interpretation (no units) Date/Time Value 06/20/2024 1437 (A) ATYPICAL SQUAMOUS CELLS OF UNDETERMINED SIGNIFICANCE (ASCUS) Other Findings (no units) Date/Time Value 01/06/2022 1109 Fungal organisms consistent with Heather species. Radiology: CT CAP 11/28/23 FINDINGS: Chest: Lymph Nodes and Mediastinum: No [...] battery pack in the right paraspinal region. IMPRESSION: Chest: No specific evidence for thoracic metastasis. Abdomen/Pelvis: No specific evidence for abdominal or pelvic metastasis. Assessment and Plan: Performance Status: 0 Problem 1: Vaginal dysplasia Assessment and plan 1: S/p RA [facility] BSO for cervical dysplasia. Pap smear 11/02/23 ASCUS/other High Risk HPV (+). Repeat pap smear today. Problem 2: SANJEEV 3 Assessment and plan 2: SANJEEV 3 simple partial vulvectomy on 03/05/22 showing SANJEEV 3, mucosal margins negative, negative for invasive carcinoma. No new lesions today. Close attention to area of previous surgery as patient has reporteditching in this area (only scar tissue noted in this area). continue clobetasol and premarin. Biopsy today 10 o'clock - sent emla cream for irritation Problem 3: Multiple medical co-morbidities (chronic back pain, anxiety) Assessment and plan 3: continue medical management (patient has nerve stimulator for back pain). Back surgery March 2024. Problem 4: Tobacco use Assessment and plan 4: Patient has quit smoking >3 years. Problem 5: Itching and burning Assessment and plan 5: clobetasol and prophylactic diflucan. Also advised use of boric acid vag suppositories. Would like to trial vivjoa, advised not to use alongside diflucan. Occupational exposure needle stick REBEKAH Marcelo, will draw labs per hospital protocol. Team based care includes nurse intake, review of prior documentation, history, physical exam, lab orders, colposcopy, pap, biopsy. discussion of results, discussion of plan of care, and documentation. Encounter time 30 min. NATALIE Christensen [facility] GYNECOLOGY [address] [facility] [id number] Dept Loc: [phone] documented in this encounter Plan of Treatment Upcoming Encounters Date Type Department Care Team ([facility] Contact Info) Description 12/25/2024 2:30 PM EDT Office Visit [facility] Gynecology [address] [place] [phone] Nevaeh Harrison APRN [address] [facility] [address] [place] [address] 03/06/2025 1:00 PM EST Clinical Support [facility] [address] [facility] [place] [address] 03/20/2025 11:20 AM EST Pharmacist Visit [facility] [address], [address] [place] [address] Neil Saldana, PharmD [address] [place] [address] 04/25/2025 1:30 PM EST Office Visit [facility] [address], [address] [place] [address] Arnav Ibarra MD [address] [facility] [address] [place] [address] Scheduled Orders Name Type Priority Associated Diagnoses Orde r Schedule Pap Test Pathology and Cytology Routine Vulvar dysplasia Ordered: 10/01/2024 documented as of this encounter Procedures Procedure Name Priority Date/Time Associated Diagnosis Comments HEPATITIS B SURFACE ANTIGEN Routine 10/01/2024 11:32 AM EDT HIV 1/2 ANTIBODY/ANTIGEN SCREEN W/REFLEX TO HIV 1/2 ANTIBODY DIFFERENTIATION Routine 10/01/2024 10:50 AM EDT Occupational exposure in workplace HIV 1/2 ANTIBODY/ANTIGEN SCREEN WITH REFLEX TO HIV I/II DIFFERENTIATION Routine 10/01/2024 10:50 AM EDT Occupational exposure in workplace HEPATITIS C ANTIBODY W/REFLEX TO HCV QUANT PCR Routine 10/01/2024 10:50 AM EDT BIOPSY VULVA Routine 10/01/2024 10:30 AM EDT Vulvar dysplasia GENOTYPES 16 AND 18/45, THINPREP (SO) Routine 10/01/2024 9:50 AM EDT Vulvar dysplasia HPV HIGH RISK SCREEN BY SENIOR ANALYTIC CONSULTANT-MEDIATED AMPLIFICATION (TMA), WITH REFLEX TO GENOTYPES 16 AND 18/45, THINPREP(SO) Routine 10/01/2024 9:50 AM EDT Vulvar dysplasia SURGICAL PATHOLOGY EXAM Routine 10/02/19 9:50 AM EDT Vulvar dysplasia PAP TEST - CYTOLOGY Routine 10/01/2024 9 :50 AM EDT Vulvar dysplasia documented in this encounter Results * Hepatitis B Surface Antigen (10/01/2024 11:32 AM EDT) Hepatitis B Surf Antigen Negative Negative 10/01/2024 11:32 AM EDT [facility] Blood Venous blood specimen / Unknown 10/01/2024 10:10 AM EDT us Nevaeh Harrison APRN LAB BLOOD ORDERABLES Final R esult Performing Organization Address City/State/[facility] Co de Phone Number [facility] [address] [place] [address] * HIV 1 & 2 Antibody/Antigen Screen (10/01/2024 10:50 AM EDT) HIV 1 & 2 Antibody/Antigen Screen Non Reactive Non Reactive 10/01/2024 10:50 AM EDT [facility] Comment:Screening for HIV 1 & 2 antibodies, and P24 antigen is NONREACTIVE. No confirmatory testing is required. Blood Venous blood specimen / Unknown 10/01/2024 10:10 AM EDT us Nevaeh Harrison APRN LAB BLOOD ORDERABLES Final R esult Performing Organization Address [facility] Co de Phone Number [facility] [address] [place] [address] * Hepatitis C Antibody (10/01/2024 10:50 AM EDT) Hepatitis C Antibody Negative Negative 10/01/2024 10:50 AM EDT [facility] Blood Venous blood specimen / Unknown 10/01/2024 10:10 AM EDT us Nevaeh Harrison APRN LAB BLOOD ORDERABLES Final R [facility] Performing Organization Address [facility] [place] [address] * Biopsy vulva (10/01/2024 10:30 AM EDT) Narrative Nevaeh Harrison APRN - 10/01/2024 10:30 AM EDT Nevaeh Harrison APRN 10/01/2024 11:39 AM Biopsy vulva Date/Time: 10/01/2024 10:30 AM Performed by: Nevaeh Harrison APRN Authorized by: Nevaeh Harrison APRN Consent: Consent obtained: Verbal and written Consent given by: Patient Risks, benefits, and alternatives were discussed: yes Risks discussed: Bleeding and pain Alternatives discussed: Delayed treatment [place] protocol: Procedure explained and questions answered to patient or proxy's satisfaction: yes Relevant documents present and verified: yes Test results available: yes Imaging studies available: no Required blood products, implants, devices, and special equipment available: no Site/side marked: no Immediately prior to procedure, a time out was called: no Patient identity confirmed: Verbally with patient Indications: Indications: Lesion Anesthesia: Anesthesia method: Local infiltration Local anesthetic: Lidocaine 1% WITH epi Procedure specific details: Vulvar exam today with punch biopsy. Punch biopsy indication explained to patient. Patient explained of risks of bleeding and infection. Lidocaine injected at area to be biopsied. Hemostasis achieved with silver nitrate after punch. Explained care of site after procedure. Informed patient she will be called with results regardless if normal or abnormal. Specimen labeled with location and patient ID. Sent to pathology. Consent signed. Post-procedure details: Procedure completion: Tolerated Nevaeh Harrison APRN IN CLINIC/BEDSIDE ORDERABLES Final Result * Genotypes 16 and 18/45, ThinPrep (SO) (10/01/2024 9:50 AM EDT) HPV Source Not Provided 10/11/2024 3:48 PM EDT [facility] ([facility]) HPV Genotype 16 by TMA Not Detected 10/11/2024 3:48 PM EDT [facility] ([facility]) HPV Genotype 18/45 by TMA Not Detected 10/11/2024 3:48 PM EDT [facility] ([facility]) Thin Prep Vaginal structure / Unknown 10/01/2024 9:50 AM EDT 10/05/2024 3:19 PM EDT Narrative [facility] ([facility]) - 10/11/2024 3:48 PM EDT Specimen source was not provided. Please refer to the [facility] Test Directory for validated specimen source information: http://www.[employer]com/testing. Interpret results with caution. INTERPRETIVE INFORMATION: HPV Genotype This test detects E6/E7 viral messenger RNA of the high-risk HPV types 16, 18, and 45 only. It is intended for use in women 21 years and older with ASC-US cervical cytology results and in women 30 years and older as a follow-up to a positive high-risk HPV screen. Sensitivity may be affected by specimen collection methods, stage of infection, and the presence of interfering substances. Results should be interpreted in conjunction with other available laboratory and clinical data. This test is not intended for use as a stand-alone test. HPV testing should not be used for screening or management of atypical squamous cells of undetermined significance (ASCUS) in women under age 21. Performed By: [facility] [address] [place] [address] Vending Stand Supervisor: Duncan Keller MD, PhD CLIA Number: [id number] us Nevaeh Harrison FACILITIES ADMINISTRATOR LAB REF LAB BLOOD AND FLUID ORD Final Result [facility]) [address] [place] [address] * (ABNORMAL) HPV High Risk Screen by Staff Research Associate-Mediated Amplification (TMA), with Reflex to Genotypes 16 and 18/45, ThinPrep(SO) (10/01/2024 9:50 AM EDT) HPV Source Not Provided 10/10/2024 4:24 AM EDT [facility] ([facility]) HPV, High Risk by TMA Detected(A) 10/10/2024 4:24 AM EDT [facility] ([facility]) Thin Prep Vaginal structure / Unknown 10/01/2024 9:50 AM EDT 10/05/2024 3:19 PM EDT Narrative [facility]) - 10/10/2024 4:24 AM EDT Specimen source was not provided. Please refer to the [facility] Test Directory for validated specimen source information: http://www.[employer]/testing. Interpret results with caution. HPV, High Risk by TMA is detected. HPV Genotype has been added. Additional charges apply. INTERPRETIVE INFORMATION: HPV, High Risk by TMA This test detects E6/E7 viral messenger RNA of 14 high-risk HPV types (16, 18, 31, 33, 35, 39, 45, 51, 52, 56, 58, 59, 66, and 68) associated with cervical cancer and its precursor lesions. This test does not discriminate between the 14 high-risk HPV types. Sensitivity may be affected by specimen collection methods, stage of infection, and the presence of interfering substances. Results should be interpreted in conjunction with other available laboratory and clinical data. A negative high-risk HPV result does not exclude the presence of other high-risk HPV types. HPV testing should not be used for screening or management of atypical squamous cells of undetermined significance (ASCUS) in women under age 21. Performed By: [facility] [address] [place] [address] V[address] Stand Supervisor: Duncan Keller MD, PhD CLIA Number: [id number] Nevaeh Harrison FACILITIES ADMINISTRATOR LAB REF LAB BLOOD AND FLUID ORD Final Result [facility] ([facility]) [address] [place] [address] * Pap Test (10/01/2024 9:50 AM EDT) Case Report Cytology Case: [id number] Authorizing Provider: Nevaeh Harrison APRN Collected: 10/01/2024 0950 Ordering Location: [facility] Gynecology Received: 10/02/2024 1107 First Screen: Chelsey Travis Rescreen: Josephine Miller Specimen: ThinPrep Pap Test, Liquid-Based Vaginal 10/05/2024 3:19 PM EDT [facility] Interpretation NEGATIVE FOR INTRAEPITHELIAL LESION OR MALIGNANCY 10/05/2024 3:19 PM EDT [facility] at 1519 EDT Specimen Adequacy Satisfactory for evaluation. Slide examined with [employer] ThinPrep Imaging System but manually screened for technical reasons. 10/05/2024 3:19 PM EDT [facility] Cervical cytology is a screening test primarily for squamous cancers and precursors and has associated false negative and positive results. New technologies such as liquid based sampling may decrease but will not eliminate all false negative results. Regular screening and follow-up of unexplained clinical signs and symptoms are recommended to minimize false negative results. Please see the ASCCP website (www.asccp.org)fo r followup recommendations. If HPV testing was requested, correlation with the results is suggested (please call Microbiology at [phone] for results). 10/05/2024 3:19 PM EDT [facility] Menstrual Status Not Applicable 09/2024 3:19 PM EDT [facility] Contraceptive History Not Applicable 10/05/2024 3:19 PM EDT [facility] Screening Type Previous or Suspected Abnormality 10/05/2024 3:19 PM EDT [facility] HPV Testing Requested? 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] 10/05/2024 3:19 PM EDT [facility] Thin Prep Vaginal structure / Unknown 10/01/2024 9:50 AM EDT 10/02/2024 11:07 AM EDT us Nevaeh Harrison APRN LAB CYTOLOGY ORDERABLES Niru stone Result [facility] [address] [place] [address] * Surgical Pathology Exam (10/01/2024 9:50 AM EDT) Case Report Surgical Pathology Case: [id number] Authorizing Provider: Nevaeh Harrison APRN Collected: 10/01/2024 0950 Ordering Location: [facility] Gynecology Received: 10/01/2024 1526 Pathologist: Jacob Haley MD Specimen: Vulva, vulva 10/02/2024 3:00 PM EDT [facility] Final Diagnosis VULVA, BIOPSY: - SQUAMOUS EPITHELIUM WITH NO SIGNIFICANT HISTOLOGIC ABNORMALITY. 10/02/2024 3:00 PM EDT [facility] at 1500 EDT Comment Deeper levels are examined. 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 VULVA Received in formalin labeled vulva is one white-ontiveros soft tissue fragment measuring 0.2 cm. Entirely submitted in cassette A1. Cold Time: 0 Sadia Ny 10/02/2024 3:00 PM EDT [facility] Note: A resident was involved in the service. I attest I examined the relevant preparations for the specimens and confirmed the diagnosis or interpretation. 10/02/2024 3:00 PM EDT [facility] Tissue Vulval structure / Unknown Non-blood Collection / Unknown 10/01/2024 9:50 AM EDT 10/01/2024 3:26 PM EDT us Nevaeh Harrison APRN LAB PATHOLOGY ORDERABLES Theodore reyna Result [facility] [address] [place] [address] documented in this encounter Visit Diagnoses Diagnosis Yeast infection of the vagina- Primary Candidiasis of vulva and vagina Vaginal itching Pruritus of genital organs Vulvar dysplasia Other specified noninflammatory disorder of vulva and perineum Occupational exposure in workplace documented in this encounter Additional Health Concerns Assessment Noted Time PHQ-9 Depression Total Score: 0 06/21/19 25 2:21 PM EDT A fall risk assessment has been complete d for the patient 08/22/2024 1:14 PM EDT A Body Mass Index follow-up plan has been documented for the patient 08/22/2024 1:56 PM EDT documented as of this encounter Care Teams Patrol Captain Relationship Specialty Start Date End Date Naya Goodwin APRN [address] [place] [address] PCP - General 07/11/20 Chelsey Mascorro [address] [place] [address] [place] [id number] Referring Physician Gynecology 01/19/21 Yong Mata MD [facility] [address] [place] [address] Surgeon Pain Medicine 05/12/21 Malena Burton, FACILITIES ADMINISTRATOR [address] [facility] [place] [address] Nurse Practitioner Urology 06/09/23 documented as of this encounter
--- OUTSIDE RECORDS SUMMARY | 2024-10-31 07:09 | XMS_ITS | Encounter Summary ---
Author Organization [facility] Address [address] [place] [id number] Care Team Providers Care Tool Grinding Machine Operator Name Role Phone Christa Naya Kim SHIPPING & RECEIVING LEAD Primary Care Provider [phone] Chelsey Mascorro Unavailable Yong Mata MD Unavailable Malena Burton APRN Unavailable [phone] Reason for Visit * Reason Comments Med Refill Encounter Details Date Type Department Care Team (Late st Contact Info) Description 10/26/2024 Refill [facility]necology [address] [place] [address] Nevaeh Harrison, SHIPPING & RECEIVING LEAD [address] [facility] [address] [place] [address] Yeast infection of the vagina; Vaginal itching Social History Tobacco Use Types Packs/Day Years [...] Care Team (Late st Contact Info) Description 12/25/2024 2:30 PM EDT Office Visit [facility]ne[facility] [address] [place] [address] Nevaeh Harrison, SHIPPING & RECEIVING LEAD [address] [facility] [address] [place] [address] 03/06/2025 1:00 PM EST Clinical Support [facility] Laboratory Services [address] [facility], 1st [place] [address] 03/20/2025 11:20 AM EST Pharmacist Visit [facility] Bone & Mineral Metabolism [address] [facility], [address] [place] [address] Neil Saldana, PharmD [address] [facility] [address] [place] [address] 04/25/2025 1:30 PM EST Office Visit Medical Office Building [facility] [address] [facility], [address] [place] [address] Arnav Ibarra MD [address] [facility] [address] [place] [address] documented as of this encounter Visit Diagnoses Diagnosis Yeast infection of the vagina Candidiasis of vulva and vagina Vaginal itching Pruritus of genital organs documented in this encounter Additional Health Concerns Assessment Noted Time PHQ-9 Depression Total Score: 0 06/21/19 2:21 PM EDT A fall risk assessment has been complete d for the patient 08/22/2024 1:14 PM EDT A Body Mass Index follow-up plan has been documented for the patient 08/22/2024 1:56 PM EDT documented as of this encounter Care Teams Tool Grinding Machine Operator Relationship Specialty Start Date End Date Naya Goodwin, NATALIE [address] [place] [address] PCP - General 07/11/20 Chelsey Mascorro [address] [place] [address] [place] [address] Referring Physician Gynecology 01/19/21 Yong Mata MD [facility] [place] [address] [place] [address] Surgeon Pain Medicine 05/12/21 Malena Burton APRN [id number] [place] [address] Nurse Practitioner Urology 06/09/23 documented as of this encounter
--- OUTSIDE RECORDS SUMMARY | 2024-10-31 07:09 | XMS_ITS | Encounter Summary ---
Author Organization [facility] Address [address] [place] [address] Care Team Providers Care Line Maintainer Section Name Role Phone Naya Goodwin SURFACE GRINDER TENDER Primary Care Provider [phone] Chelsey Mascorro Unavailable Yong Mata MD Unavailable Malena Burton APRN Unavailable [phone] Encounter Details Date Type Department Care Team (Late Contact Info) Description 05/10/2023 Orders Only External Location [address] [place] [address] Provider, External Social History Tobacco [...] Department Care Team (Late Contact Info) Description 12/25/2024 2:30 PM EDT Office Visit [facility] Gynecology [address] [facility] [address] [place] [address] Nevaeh Harrison, SURFACE GRINDER TENDER [address] [facility] [address] [place] [address] 03/06/2025 1:00 PM EST Clinical Support [facility] Laboratory Services [address] [facility], 1st [place] [address] 03/20/2025 11:20 AM EST Pharmacist Visit [facility] Bone & Mineral Metabolism [address], [address] [place] [address] Neil Saldana, PharmD [address] [facility] [address] [place] [address] 04/25/2025 1:30 PM EST Office Visit Medical Office Building Surgery Spine [facility] Joint [address] [facility], [address] [place] [address] Arnav Ibarra MD [address] [place] [address] documented as of this encounter [...] documented as of this encounter Care Teams Line Maintainer Section Relationship Specialty Start Date End Date Naya Goodwin, NATALIE [address] [place], [place] [id number] PCP - General 07/11/20 Chelsey Mascorro [address] [place] [address] [place] [address] Referring Physician Gynecology 01/19/21 Yong Mata MD [facility] [address] [place] [address] Surgeon Pain Medicine 05/12/21 Malena Burton APRN [address] [facility] [address] [place] [address] Nurse Practitioner Urology 06/09/23 documented as of this encounter
--- OUTSIDE RECORDS SUMMARY | 2024-10-31 07:09 | XMS_ITS | Encounter Summary ---
Author Organization [facility] Address [address] [place] [address] Care Team Providers Care Raimann Machine Operator Name Role Phone Naya Goodwin BIOLOGY MANAGER Primary Care Provider [phone] Chelsey Mascorro Unavailable Yong Mata MD Unavailable Malena Burton APRN Unavailable [phone] Encounter Details Date Type Department Care Team (Late st Contact Info) Description 10/01/2024 Lab Requisition [facility] [address] [place] [phone] Ara Byrnes MD [address] [place] [address] Unspecified general medical examination Social History Tobacco Use Types Packs/Day Years [...] on file documented as of this encounter Functional Status * Over the [...] Marjorie Cruz documented as of this encounter Plan of Treatment Upcoming Encounters Date Type Department Care Team (Late st Contact Info) Description 12/25/2024 2:30 PM EDT Office Visit [facility] Gynecology [address] [place] [address] Nevaeh Harrison S, BIOLOGY MANAGER [address] [facility] [address] [place] [address] 03/06/2025 1:00 PM EST Clinical Support [facility] Laboratory Services [address] [facility], 1st [place] [address] 03/20/2025 11:20 AM EST Pharmacist Visit [facility] Bone & Mineral Metabolism [address] [facility], [address] [place] [address] Neil Saldana, PharmD [address] [facility] [address] [place] [address] 04/25/2025 1:30 PM EST Office Visit Medical Office Building Surgery Spine [facility] Joint [address] [facility], [address] [place] [address] Arnav Ibarra MD [address] [facility] [address] [place] [address] (work) documented as of this encounter Procedures Procedure Name Priority Date/Time Associated Diagnosis Comments SOURCE, LAURI HIV AB/AG W/REFLEX TO HIV 1/2 ANTIBODY DIFFERNTIATION PERFORMABLE STAT 10/01/2024 9:42 AM EDT Unspecified general medical examination SOURCE, KOFIFE HCV QUANT PCR STAT 10/01/2024 9:42 AM EDT Unspecified general medical examination SOURCE, BBFE HIV AB/AG W/REFLEX TO HIV1/2 ANTIBODY DIFFERENTIATION STAT 10/01/2024 9:42 AM EDT Unspecified general medical examination SOURCE, KOFIFE HEPATITIS B S AG STAT 10/01/2024 9:42 AM EDT Unspecified general medical examination documented in this encounter Results * Source, BBFE HIV AB/AG w/Reflex to HIV1/2 Antibody Differentiation (10/01/2024 9:42 AM EDT) Pathologist [facility] HIV 1 & 2 Antibody/Antigen Screen Non Reactive Non Reactive 10/01/2024 11:30 AM EDT [facility] Comment:Screening for HIV 1 & 2 antibodies, and P24 antigen is NONREACTIVE. No confirmatory testing is required. Blood Venous blood specimen / Unknown 10/01/2024 9:42 AM EDT 10/01/2024 10:12 AM EDT Ara Byrnes MD LAB BLOOD ORDERABLES Final Re sult [facility] [address] [place] [address] * Source, BBFE HCV Quant PCR (10/01/2024 9:42 AM EDT) Pathologist [facility] Hepatitis C Virus (HCV) Quantitative Interpretation Not Detected Not Detected. 10/03/2024 2:38 PM EDT [facility] Blood Venous blood specimen / Unknown 10/01/2024 9:42 AM EDT 10/01/2024 10:12 AM EDT Narrative [facility] - 10/03/2024 2:38 PM EDT The [place] M2000 HCV test is a Real Time in vitro nucleic acid amplification test for the quantitation of Hepatitis C Viral (HCV) RNA in human serum in HCV-infected individuals. It is intended for use as an aid in the management of HCV-infected individuals undergoing anti-viral therapy. The dynamic range for this test is log10 = 1.08 to 8.00 and/or 12 to 100,000,000 IU/mL. The limit of detection (LOD) for this assay is 12 IU/mL and the limit of quantitation (LOQ) is 12 IU/mL. This assay is FDA approved for clinical use. Ara Byrnes MD LAB BLOOD ORDERABLES Final Re sult Performing Organization Address [facility] Co de Phone Number [facility] [address] [place] [address] * Source, BBFE Hepatitis B S AG (10/01/2024 9:42 AM EDT) Hepatitis B Surf Antigen Negative Negative 10/01/2024 11:30 AM EDT [facility] Blood Venous blood specimen / Unknown 10/01/2024 9:42 AM EDT 10/01/2024 10:12 AM EDT Ara Byrnes MD LAB BLOOD ORDERABLES Final Re sult Performing Organization Address [facility] [place] [address] documented in this encounter Visit Diagnoses Diagnosis Unspecified general medical examination documented in this encounter Additional Health Concerns Assessment Noted Time PHQ-9 Depression Total Score: 0 06/21/19 25 2:21 PM EDT A fall risk assessment has been complete d for the patient 08/22/2024 1:14 PM EDT A Body Mass Index follow-up plan has been documented for the patient 08/22/2024 1:56 PM EDT documented as of this encounter Care Teams Raimann Machine Operator Relationship Specialty Start Date End Date Naya Goodwin APRN [address] [place] [address] PCP - General 07/11/20 Chelsey Mascorro [address] [facility] [place] [address] Referring Physician Gynecology 01/19/21 Yong Mata MD [facility]0 [address] [place] [address] Surgeon Pain Medicine 05/12/21 Malena Burton APRN [address] [facility] [address] [place] [address] Nurse Practitioner Urology 06/09/23 documented as of this encounter
--- OUTSIDE RECORDS SUMMARY | 2024-10-31 07:09 | XMS_ITS | Clinical Summary ---
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 12/23/19 21 Active fluticasone (Flonase) 50 MCG/ACT nasal spray Administer 1 spray into each nostril daily. 11/30/19 21 Active pantoprazole (Protonix) 40 MG EC tablet Take 1 tablet (40 mg) by mouth daily before breakfast. 01/08/20 21 Active Misc. Devices (Sitz Bath) misc 1 kit 1 (one) time per week. 3 each 04/15/19 24 Active calcium carbonate (Tums) 500 MG chewable tabletIndications :Osteoporosis without current pathological fracture, unspecified osteoporosis type Chew 1 tablet (500 mg) 3 (three) times a day with meals. 90 tablet 3 07/07/19 24 Active calcitriol (Rocaltrol) 0.25 MCG capsuleIndication s:Secondary hyperparathyroidi sm, non-renal (CMS/HCC) Take 1 capsule (0.25 mcg) by mouth 1 (one) time each day. 30 capsule 5 01/25/20 24 Active nystatin (Mycostatin) creamIndications: Vaginal itching,Yeast infection of the vagina Apply to effected area twice daily or as needed to help with itching. 30 g 1 02/28/20 24 Active gabapentin (Neurontin) 300 MG capsule Take 1 capsule (300 mg) by mouth 3 (three) times a day. Active promethazine (Phenergan) 12.5 MG tablet Take 1 tablet (12.5 mg) by mouth every 8 hours as needed for nausea. 09/14/19 24 Active LORazepam (Ativan) 1 MG tablet Take 2 tablets (2 mg) by mouth nightly. Active acetaminophen (Tylenol) 500 MG tablet Take 2 tablets (1,000 mg) by mouth every 8 hours. 100 tablet 1 04/24/19 25 Active naloxone (Narcan) 4 mg/0.1 mL nasal spray 1. Give 1 spray in nostril for no/slow breathing or cannot wake after opioid use 2. Call 911 3. Repeat in other nostril if symptoms continue 1 each 04/24/19 25 Active ondansetron ODT (Zofran-ODT) 4 MG disintegrating tablet Take 1 tablet (4 mg) by mouth every 6 hours as needed for nausea or vomiting. 20 tablet 04/24/19 25 Active oxyCODONE (Roxicodone) 5 MG immediate release tablet Take 1 tablet (5 mg) by mouth every 6 hours as needed for moderate pain. 20 tablet 04/24/19 25 Active Docusate Sodium (DSS) 100 MG capsule Take 100 mg by mouth in the morning and 100 mg before bedtime. 28 capsule 05/09/19 25 Active clobetasol (Temovate) 0.05 % cream Apply topically twice weekly. 30 g 06/21/19 25 Active methocarbamol (Robaxin) 500 MG tablet START BY TAKING 1 PILL BY MOUTH EVERY NIGHT. SLOWLY INCREASE TO 1 PILL 2X/DAY NEEDED, WITH A MAXIMUM OF 2 PILLS 3X/DAY. 180 tablet 10 08/14/19 25 Active escitalopram (Lexapro) 20 MG tablet Take 1 tablet by mouth daily. Active lidocaine (Lidoderm) 5 % patch APPLY 1 PATCH BY TOPICAL ROUTE ONCE DAILY (MAY WEAR UP TO 12HOURS.) 08/03/19 25 Active Retin-A 0.05 % cream APPLY TO THE AFFECTED AREA(S) BY TOPICAL ROUTE ONCE DAILY AT BEDTIME 07/03/19 25 Active cholecalciferol 25 MCG (1000 UT) tabletIndications :Age-related osteoporosis without current pathological fracture Take 1 tablet by mouth daily. 30 tablet 08/15/19 25 2025 Active Oteseconazole, 12 Week, (Vivjoa) 150 MG capsule therapyIndication s:Yeast infection of the vagina,Vaginal itching Take 1 capsule by mouth 1 time per week. 18 each 3 10/02/19 25 Active lidocaine-priloca ine (Emla) 2.5-2.5 % cream Apply to vulvar biopsy area 5 g 1 10/02/19 25 Active Premarin vaginal cream INSERT 1 GRAM INTO THE VAGINA 2 (TWO) TIMES A WEEK. 30 g 10/24/19 25 Active fluconazole (Diflucan) 100 MG tabletIndications :Yeast infection of the vagina,Vaginal itching TAKE 1 TABLET BY MOUTH DAILY FOR 14 DAYS. 14 tablet 10/31/19 25 2024 Active fluconazole (Diflucan) 100 MG tabletIndications :Yeast infection of the vagina,Vaginal itching Take 1 tablet by mouth daily for 14 days. 14 tablet 10/02/19 25 2024 Discontinued Premarin vaginal cream INSERT 1 GRAM INTO THE VAGINA 2 (TWO) TIMES A WEEK. 30 g 10/11/19 25 2024 Discontinued Active Problems Problem Noted Date Diagnosed Date Spondylolisthesis at L4-L5 level 04/23/2024 Lumbar stenosis with neurogenic claudication Lumbosacral spondylosis with radiculopathy 01/15 Lumbar spondylosis 07/14/2023 Weight loss 07/07/2023 Intestinal malabsorption 07/07/2023 Spondylolisthesis of lumbosacral region 07/07/19 24 Pelvic floor dysfunction 06/09/2023 Age-related osteoporosis wit hout current pathological fracture 05/25/2023 Secondary hyperparathyroidism, non-renal 03/27/2 024 Recurrent UTI 04/11/2023 Right upper quadrant [...] Encounters Date Type Department Care Team Description 10/26/2024 Refill [facility] [address] [place] [address] Little FerryNevaeh romero S, STRATEGIC PARTNER DEVELOPMENT MANAGER Yeast infection of the vagina; Vaginal itching 10/23/2024 Telephone [employer] [facility] [address], [address] [place] [address] Neil Saldana, PharmD 10/23/2024 Refill [facility] [address] [place] [address] ChristyNevaeh romero S, STRATEGIC PARTNER DEVELOPMENT MANAGER 10/10/2024 Refill [facility] Gynecology [address] [place] [address] ChristyIzaiah romeroi S, STRATEGIC PARTNER DEVELOPMENT MANAGER 10/02/2024 Results Follow-Up [facility] Gynecology [address] [place] [address] Nevaeh Harrison S, STRATEGIC PARTNER DEVELOPMENT MANAGER 10/01/2024 8:30 AM EDT Office Visit [facility] Gynecology [address] [place] [address] Little FerryNevaeh romero S, STRATEGIC PARTNER DEVELOPMENT MANAGER Yeast infection of the vagina (Primary Dx); Vaginal itching; Vulvar dysplasia; Occupational exposure in workplace 10/01/2024 Lab Requisition [facility] [address] [place] [address] Ara Byrnes MD Unspecified general medical examination 10/01/2024 Travel 08/29/2024 Telephone [facility] Gynecology [address] [place] [address] ChristyNevaeh romero S, STRATEGIC PARTNER DEVELOPMENT MANAGER 08/22/2024 1:20 PM EDT Office Visit [facility] [address], [address] [place] [address] Radha Hughes PA Fusion of lumbar spine (Primary Dx); Lumbar spondylosis 08/22/2024 Travel 08/14/2024 2:00 PM EDT Office Visit [facility] [place] [address], [address] [place] [phone] Sana Strong MD Age-related osteoporosis without current pathological fracture (Primary Dx); Lumbar spondylosis; Spondylolisthesis at L4-L5 level; Secondary hyperparathyroidism, non-renal (CMS/HCC); Chronic obstructive pulmonary disease, unspecified COPD type (CMS/HCC); Gastroesophageal reflux disease with esophagitis without hemorrhage; Lumbar stenosis with neurogenic claudication 08/14/2024 12:46 PM EDT - 08/14/2024 11:59 PM EDT Hospital Encounter [facility] [place] [address], [address] [place] [address] Age-related osteoporosis without current pathological fracture Discharge Disposition: Home or Self Care 08/14/2024 Travel 08/09/2024 Refill [facility] [address] [place] [address] Malena Burton APRN 08/06/2024 Telephone [facility], [place] [address], [address] [place] [phone] Betsy Soares 08/06/2024 Telephone [facility] [place] [address], [address] [place] [address] Betsy Soares from Last 3 Months Immunizations Immunization Administration [...] Mass Index 23.08 10/01/2024 8:47 AM EDT Plan of Treatment Upcoming Encounters Date Type Department Care Team (Late st Contact Info) Description 12/25/2024 2:30 PM EDT Office Visit [facility] [address] [place] [address] Nevaeh Harrison S, STRATEGIC PARTNER DEVELOPMENT MANAGER [address] [place] [address] 03/06/2025 1:00 PM EST Clinical Support [facility] [place] [address] [place] [address] 03/20/2025 11:20 AM EST Pharmacist Visit [facility] [place] [address], [address] [place] [address] Neil Saldana, PharmD [address] [place] [address] 04/25/2025 1:30 PM EST Office Visit Medical [facility] [address], [address] [place] [address] Arnav Ibarra MD [address] [place] [address] Health Maintenance Due Date Last Done Comments [facility]-Medicare Annual Wellness (AWV) 1962 [facility]-Infant/Child/Adol SDOH Screenings 1962 [facility]- SDOH Screenings 1980 [facility]-Adult SDOH Screenings 1980 [facility]-DTaP,Tdap,and Td Vaccines (1 - Tdap) 1981 CT Colonography 11/25/2007 Colonoscopy 11/25/2007 [facility]-DNA 11/25/2007 FIT 11/25/2007 FOBT 11/25/2007 Sigmoidoscopy 11/25/2007 [facility]-Colorectal Cancer Screening 11/25/2007 [facility]-Breast Cancer Screening 2012 [facility]-Pneumococcal Vaccine: 50+ Years (1 of 1 - PCV) 2012 [facility]-Zoster Vaccines (1 of 2) 2012 [facility]-SPPPE-14 Vaccine (6 - 2024- season) 2024 03/16/2023, 10/09/2021, 02/25/2021, Additional history exists [facility]-Influenza Vaccine (#1) 10/29/202412/11, 12/03/2022, 12/29/2021, Additional history exists [facility]-Lung Cancer Screening 11/27/2024 11/28/2023, 01/2022 [facility]-Bone Density Scan 08/14/2025 08/14/2024 , 05/10/2023, 05/10/2023 [facility]-Depression Screening 10/01/2025 025, 06/20/2024, 01/25/2024, Additional history exists [facility]-RSV Vaccine: 60+ Years or (1 - 1-dose 75+ series) 2037 [facility]-Hepatitis A Vaccines Aged Out 2018, 01/28 No longer eligible based on patient's age to complete this topic [facility]-HIV Screening Completed 10/01/2024, , 08/08/2021 [facility]-Hepatitis C Screening Completed 2024, 08/08/2021, 08/08/2021 HPV Vaccines Aged Out No longer [...] this topic Medical Devices Implanted Type Area Side Puller Device Identifier Shelf Expiration Date Model / Serial / Lot Single Inner Setscrew - [id number] Implanted:Qty: 4 on 04/23/2024 by Arnav Ibarra MD at [facility] Screw N/A: Spine Lumbar DeP[employer] Spine [employer] [id number] / / N/A Screw 5.5mm Viper Ti Fen Crtcl Polyax 7mm X 40mm - [id number] Implanted:Qty: 2 on 04/23/2024 by Arnav Ibarra MD at [facility] Screw N/A: Spine Lumbar [employer] [id number] / / N/A Screw 5.5mm Viper Ti Fen Crtcl Polyax 6mm X 40mm - [id number] Implanted:Qty: 2 on 04/23/2024 by Arnav Ibarra MD at [facility] Screw N/A: Spine Lumbar [employer] [id number] / / N/A Nerve Stimulator N/A: Back Matrix Fibergraft Bg Medium 6.25cc - [id number] Implanted:Qty: 1 on 04/23/2024 by Arnav Ibarra MD at [facility] N/A: Spine Lumbar [employer] Spine [employer] [id number] 10/25/2026 [id number] / / [id number] Description:Surgeon uses the patients own blood to prepare Pre-Lordosed Terrance W/ Line 35mm - [id number] Implanted:Qty: 2 on 04/23/2024 by Arnav Ibarra MD at [facility] N/A: Spine Lumbar De[employer]ine [employer] [id number] / / N/A Procedures Procedure Name Priority Date/Time Associated Diagnosis Comments HEPATITIS B SURFACE ANTIGEN Routine 10/01/2024 11:32 AM EDT HEPATITIS C ANTIBODY W/REFLEX TO HCV QUANT PCR Routine 10/01/2024 10:50 AM EDT HIV 1/2 ANTIBODY/ANTIGEN SCREEN WITH REFLEX TO HIV I/II DIFFERENTIATION Routine 10/01/2024 10:50 AM EDT Occupational exposure in workplace HIV 1/2 ANTIBODY/ANTIGEN SCREEN W/REFLEX TO HIV 1/2 ANTIBODY DIFFERENTIATION Routine 10/01/2024 10:50 AM EDT Occupational exposure in workplace BIOPSY VULVA Routine 10/01/2024 10:30 AM EDT Vulvar dysplasia PAP TEST - CYTOLOGY Routine 10/01/2024 9 :50 AM EDT Vulvar dysplasia SURGICAL PATHOLOGY EXAM Routine 10/02/19 9:50 AM EDT Vulvar dysplasia GENOTYPES 16 AND 18/45, THINPREP (SO) Routine 10/01/2024 9:50 AM EDT Vulvar dysplasia HPV HIGH RISK SCREEN BY RETAIL STORE ASSISTANT-MEDIATED AMPLIFICATION (TMA), WITH REFLEX TO GENOTYPES 16 AND 18/45, THINPREP(SO) Routine 10/01/2024 9:50 AM EDT Vulvar dysplasia SOURCE, BBFE HIV AB/AG W/REFLEX TO HIV 1/2 ANTIBODY DIFFERNTIATION PERFORMABLE STAT 10/01/2024 9:42 AM EDT Unspecified general medical examination SOURCE, BBFE HCV QUANT PCR STAT 10/01/2024 9:42 AM EDT Unspecified general medical examination SOURCE, BBFE HEPATITIS B S AG STAT 10/01/2024 9:42 AM EDT Unspecified general medical examination SOURCE, BBFE HIV AB/AG W/REFLEX TO HIV1/2 ANTIBODY DIFFERENTIATION STAT 10/01/2024 9:42 AM EDT Unspecified general medical examination CREATININE, RANDOM URINE Routine 08/14/2024 1:42 PM [...] fracture CT CHEST W IV CONTRAST Routine 4 3:37 PM EDT History of abnormal cervical Pap smear Vulvar dysplasia from Last 3 Months or Most Recently Relevant to Health Maintenance Results * Hepatitis B Surface Antigen (10/01/2024 11:32 AM EDT) Hepatitis B Surf Antigen Negative Negative 10/01/2024 11:32 AM EDT [facility] Blood Venous blood specimen / Unknown 10/01/2024 10:10 AM EDT us Nevaeh Harrison APRN LAB BLOOD ORDERABLES Final R esult [facility] [address] [place] [address] * HIV 1 & 2 Antibody/Antigen Screen (10/01/2024 10:50 AM EDT) HIV 1 & 2 Antibody/Antigen Screen Non Reactive Non Reactive 10/01/2024 10:50 AM EDT [facility] Comment:Screening for HIV 1 & 2 antibodies, and P24 antigen is NONREACTIVE. No confirmatory testing is required. Blood Venous blood specimen / Unknown 10/01/2024 10:10 AM EDT us Nevaeh Harrison STRATEGIC PARTNER DEVELOPMENT MANAGER LAB BLOOD ORDERABLES Final R esult Performing Organization Address City/[facility] Co de Phone Number [facility] [address] [place] [address] * Hepatitis C Antibody (10/01/2024 10:50 AM EDT) Hepatitis C Antibody Negative Negative 10/01/2024 10:50 AM EDT [facility] Blood Venous blood specimen / Unknown 10/01/2024 10:10 AM EDT Nevaeh Harrison STRATEGIC PARTNER DEVELOPMENT MANAGER LAB BLOOD ORDERABLES Final R esult Performing Organization Address [facility] de Phone Number [facility] [address] [place] [address] * Biopsy vulva (10/01/2024 10:30 AM EDT) [...] Bleeding and pain Alternatives discussed: Delayed treatment [place] protocol: Procedure explained and questions answered to [...] signed. Post-procedure details: Procedure completion: Tolerated Nevaeh S [place] STRATEGIC PARTNER DEVELOPMENT MANAGER IN CLINIC/BEDSIDE ORDERABLES Final Result * Genotypes 16 and 18/45, ThinPrep (SO) (10/01/2024 9:50 AM EDT) HPV Source Not Provided 10/11/2024 3:48 PM EDT [facility] ([facility]) HPV Genotype 16 by TMA Not Detected 10/11/2024 3:48 PM EDT [facility] ([facility]) HPV Genotype 18/45 by TMA Not Detected 10/11/2024 3:48 PM EDT [facility] ([facility]) Thin Prep Vaginal structure / Unknown 10/01/2024 9:50 AM EDT 10/05/2024 3:19 PM EDT Narrative [facility] ([facility]) - 10/11/2024 3:48 PM EDT Specimen source was not provided. Please refer to the [employer] Test Directory for validated specimen source information: [email or web address]. Interpret results with caution. INTERPRETIVE INFORMATION: HPV [...] in women under age 21. Performed By: [facility] [address] [place] [address] Chemical Machine Tender: Duncan Keller MD, PhD CLIA Number: [id number] us Nevaeh S [place] STRATEGIC PARTNER DEVELOPMENT MANAGER LAB REF LAB BLOOD AND FLUID ORD Final Result [facility]) [address] [place], [place] [id number] * (ABNORMAL) HPV High Risk Screen by Rat Exterminator-Mediated Amplification (TMA), with Reflex to Genotypes 16 and 18/45, ThinPrep(SO) (10/01/2024 9:50 AM EDT) HPV Source Not Provided 10/10/2024 4:24 AM EDT [facility] ([facility]) HPV, High Risk by TMA Detected(A) 10/10/2024 4:24 AM EDT [facility] ([facility]) Thin Prep Vaginal structure / Unknown 10/01/2024 9:50 AM EDT 10/05/2024 3:19 PM EDT Narrative [facility] ([facility]) - 10/10/2024 4:24 AM EDT Specimen source was not provided. Please refer to the [employer] Test Directory for validated specimen source information: [email or web address]. Interpret results with caution. HPV, High Risk [...] in women under age 21. Performed By: [facility] [address] [place] [address] Chemical Machine Tender: Duncan Keller MD, PhD CLIA Number: [id number] us Nevaeh Harrison STRATEGIC PARTNER DEVELOPMENT MANAGER LAB REF LAB BLOOD AND FLUID ORD Final Result [facility]) [address] [place] [address] * Surgical Pathology Exam (10/01/2024 9:50 AM EDT) Case Report Surgical Pathology Case: [id number] Authorizing Provider: Nevaeh Harrison APRN Collected: 10/01/2024 0950 Ordering Location: [facility] Gynecology Received: 10/01/2024 1526 Pathologist: Jacob Haley MD Specimen: Vulva, vulva 10/02/2024 3:00 PM EDT [facility] Final Diagnosis VULVA, BIOPSY: - SQUAMOUS EPITHELIUM WITH NO SIGNIFICANT HISTOLOGIC ABNORMALITY. 10/02/2024 3:00 PM EDT [facility] at 1500 EDT Comment Deeper levels are examined. 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 VULVA Received in formalin labeled vulva is one white-ontiveros soft tissue fragment measuring 0.2 cm. Entirely submitted in cassette A1. Cold Time: 0 Sadia Ny 10/02/2024 3:00 PM EDT [facility] Note: A resident was involved in the service. I attest I examined the relevant preparations for the specimens and confirmed the diagnosis or interpretation. 10/02/2024 3:00 PM EDT [facility] Tissue Vulval structure / Unknown Non-blood Collection / Unknown 10/01/2024 9:50 AM EDT 10/01/2024 3:26 PM EDT us Nevaeh Harrison APRN LAB PATHOLOGY ORDERABLES Fin al Result [facility] [address] [place] [address] * Pap Test (10/01/2024 9:50 AM EDT) Case Report Cytology Case: [id number] Authorizing Provider: Nevaeh Harrison APRN Collected: 10/01/2024 0950 Ordering Location: [facility] Gynecology Received: 10/02/2024 1107 First Screen: Chelsey Travis Rescreen: Josephine Miller Specimen: ThinPrep Pap Test, Liquid-Based Vaginal 10/05/2024 3:19 PM EDT [facility] Interpretation NEGATIVE FOR INTRAEPITHELIAL LESION OR MALIGNANCY 10/05/2024 3:19 PM EDT [facility] at 1519 EDT Specimen Adequacy Satisfactory for evaluation. Slide examined with [employer] ThinPrep Imaging System but manually screened for technical reasons. 10/05/2024 3:19 PM EDT [facility] Cervical cytology is a screening test [...] results is suggested (please call Microbiology at [phone] for results). 10/05/2024 3:19 PM EDT [facility] Menstrual Status Not Applicable 09/2024 3:19 PM EDT [facility] Contraceptive History Not Applicable 10/05/2024 3:19 PM EDT [facility] Screening Type Previous or Suspected Abnormality 10/05/2024 3:19 PM EDT [facility] HPV Testing Requested? 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 [ICD-10-CM] 10/05/2024 3:19 PM EDT [facility] Thin Prep Vaginal structure / Unknown 10/01/2024 9:50 AM EDT 10/02/2024 11:07 AM EDT us Nevaeh Murray Christy GROVERN LAB CYTOLOGY ORDERABLES Niru l Result Performing Organization Address [facility] Co de Phone Number [facility] [address] [place] [address] * Source, [facility] HIV AB/AG w/Reflex to HIV1/2 Antibody Differentiation (10/01/2024 9:42 AM EDT) Pathologist [facility] HIV 1 & 2 Antibody/Antigen Screen Non Reactive Non Reactive 10/01/2024 11:30 AM EDT [facility] Comment:Screening for HIV 1 & 2 antibodies, and P24 antigen is NONREACTIVE. No confirmatory testing is required. Blood Venous blood specimen / Unknown 10/01/2024 9:42 AM EDT 10/01/2024 10:12 AM EDT Ara Byrnes MD LAB BLOOD ORDERABLES Final Re sult Performing Organization Address [facility] Co de Phone Number [facility] [address] [place] [address] * Source, BB HCV Quant PCR (10/01/2024 9:42 AM EDT) [facility] Hepatitis C Virus (HCV) Quantitative Interpretation Not Detected Not Detected. 10/03/2024 2:38 PM EDT [facility] Blood Venous blood specimen / Unknown 10/01/2024 9:42 AM EDT 10/01/2024 10:12 AM EDT Narrative [facility] - 10/03/2024 2:38 PM EDT The [...] sult Performing Organization Address City/[facility]/ZIP Co de Phone Number [facility] [address] [place] [address] * Source, BBFE Hepatitis B S AG (10/01/2024 9:42 AM EDT) Hepatitis B Surf Antigen Negative Negative 10/01/2024 11:30 AM EDT [facility] Blood Venous blood specimen / Unknown 10/01/2024 9:42 AM EDT 10/01/2024 10:12 AM EDT Ara Byrnes MD LAB BLOOD ORDERABLES Final Re sult Performing Organization Address [facility] [place] [address] * Creatinine, Random, Urine (08/14/2024 1:42 PM EDT) Creatinine, Urine 177 mg/dL 08/14/2024 2:54 PM EDT [facility] Urine Urine specimen obtained by clean catch procedure / Unknown Non-blood Collection / Unknown 08/14/2024 1:42 PM EDT 08/14/2024 1:42 PM EDT Result [facility] Sana Strong MD LAB URINE ORDERABLES Final Res ult Performing Organization Address [facility] Co de Phone Number [facility] [address] [place] [address] * Calcium, Random, Urine (08/14/2024 1:42 PM EDT) Calcium, Urine 3.4 mg/dL 08/14/2024 4:49 PM EDT [facility] Urine Urine specimen obtained by clean catch procedure / Unknown Non-blood Collection / Unknown 08/14/2024 1:42 PM EDT 08/14/2024 1:42 PM EDT Result [facility] Sana Strong MD LAB URINE ORDERABLES Final Res ult [facility] [address] [place] [address] * Dexa Bone Density (08/14/2024 12:46 PM EDT) Anatomical Region Laterality Modality L-spine Radiographic Mitra ging Narrative 08/18/2024 9:02 PM EDT [facility] [address] [address] DXA Bone Densitometry Report: [08/14/2024] BMD test performed using the [employer] DXA System (analysis version: 14.10) manufactured by [employer]. REFERRING PROVIDER: Dr. Sana Strong MD CLINICAL [...] comparison and calculation of change in BMD). us Sana Strong MD IMG DXA PROCEDURES Final Resul t * Bone Specific Alkaline Phosphatase (08/14/2024 12:42 PM EDT) Bone Specific Alkaline Phosphatase 26.3 ug/L 08/14/2024 4:33 PM EDT [facility] Comment: BSAP (Ostase) Reference Values, Female, age 18 years and up: Premenopausal: 4.5 to 16.9 ug/L Postmenopausal: 7.0 to 22.4 ug/L Blood Venous blood specimen / Unknown Venipuncture / Unknown 08/14/2024 12:42 PM EDT 08/14/2024 12:43 PM EDT Sana Strong MD LAB REF LAB BLOOD AND FLUID OR D Final Result Performing Organization Address City/[facility]/ZIP Co de Phone Number [facility] [address] [place] [address] * Ionized calcium, serum (08/14/2024 12:42 PM EDT) Pathologist [facility] Ionized Calcium, Serum 5.1 4.6 - 5.3 mg/dL LAB HEMATOLOGY METHOD 08/14/2024 2:31 PM EDT [facility] Blood Venous blood specimen / Unknown Venipuncture / Unknown 08/14/2024 12:42 PM EDT 08/14/2024 12:43 PM EDT Sana Strong MD LAB BLOOD ORDERABLES Final Res ult Performing Organization Address City/[facility]/ZIP Co de Phone Number [facility] [address] [place] [address] * C-Telopeptide (08/14/2024 12:42 PM EDT) Pathologist [facility] C Telopeptide Beta Cross Linked Serum Result 519 pg/mL 08/16/2024 12:24 AM EDT [facility] ([employer]) Blood Venous blood specimen / Unknown Venipuncture / Unknown 08/14/2024 12:42 PM EDT 08/14/2024 12:43 PM EDT Narrative [facility] ([employer]) - 08/16/2024 12:24 AM EDT Premenopausal Females: 136-689 pg/mL Postmenopausal Females: 177-1015 pg/mL REFERENCE INTERVAL: C-Telopeptide, Dwzd-Wocyz-Abqfpu, Serum Access complete set of age- and/or gender-specific reference intervals for this test in the [facility] Test Directory (Linea). Performed By: [facility] [address] [place], [place] [id number] Chemical Machine Tender: Duncan Keller MD, PhD CLIA Number: [id number] Sana Strong MD LAB BLOOD ORDERABLES Final Res ult Performing Organization Address [facility]/ZIP Co de Phone Number [facility] ([facility]) [address] [place] [address] * N telopeptide, cross-linked, serum (08/14/2024 12:42 PM EDT) N-Telopeptide, Cross-Linked, Serum 23.0 nM BCE 08/17/2024 4:29 PM EDT [facility] ([facility]) Blood Venous blood specimen / Unknown Venipuncture / Unknown 08/14/2024 12:42 PM EDT 08/14/2024 12:43 PM EDT Narrative [facility] ([facility]) - 08/17/2024 4:29 PM EDT INTERPRETIVE INFORMATION: N-Telopeptide, Cross-Linked, Serum Adult Male.......................5.4 - 24.2 nM BCE Premenopausal Adult Female.......6.2 - 19.0 nM BCE The target value for treated post-menopausal adult females is the same as the premenopausal reference interval. BCE = Bone Collagen Equivalent Performed By: [facility] [address] [place] [address] Chemical Machine Tender: Duncan Keller MD, PhD CLIA Number: [id number] Sana Strong MD LAB BLOOD ORDERABLES Final Res ult Performing Organization Address City/[facility]/ZIP Co de Phone Number [facility]) [address] [place] [address] * (ABNORMAL) Osteocalcin by ECIA (08/14/2024 12:42 PM EDT) OSTEOCALCIN BY ECIA 47(H) 8 - 36 ng/mL 08/16/2024 11:29 PM EDT [facility] SHAMAR) Blood Venous blood specimen / Unknown Venipuncture / Unknown 08/14/2024 12:42 PM EDT 08/14/2024 12:43 PM EDT Narrative [facility] REUBEN IBANEZ) - 08/16/2024 11:29 PM EDT INTERPRETIVE INFORMATION: Osteocalcin by ECIA In patients with renal failure, the osteocalcin result may be directly elevated, due to impaired clearance, and/or indirectly elevated due to renal osteodystrophy. Access complete set of age- and/or gender-specific reference intervals for this test in the [facility] Test Directory (Linea). Performed By: [facility] [address] [place] [address] Chemical Machine Tender: Duncan Keller MD, PhD CLIA Number: [id number] Sana Strong MD LAB BLOOD ORDERABLES Final Res ult [facility]) [address] [place] [address] * Vitamin D 25 Hydroxy (08/14/2024 12:42 PM EDT) Pathologist [facility] Vitamin D 25 Hydroxy 41.8 20.0 - 80.0 ng/mL 08/14/2024 4:21 PM EDT [facility] Blood Venous blood specimen / Unknown Venipuncture / Unknown 08/14/2024 12:42 PM EDT 08/14/2024 12:43 PM EDT Narrative [facility] - 08/14/2024 4:21 PM EDT Testing performed on Whiting Siderographist, standardized against NIST SRM 2972. When testing [...] ult Performing Organization Address City/[facility] Co de Phone Number [facility] [address] [place] [address] * Alkaline Phosphatase (08/14/2024 12:42 PM EDT) Alkaline Phosphatase, Plasma 129 46 - 142 U/L 08/14/2024 2:54 PM EDT [facility] Blood Venous blood specimen / Unknown Venipuncture / Unknown 08/14/2024 12:42 PM EDT 08/14/2024 12:43 PM EDT Sana Strong MD LAB BLOOD ORDERABLES Final Res ult Performing Organization Address [facility] de Phone Number [facility] [address] [place] [address] * (ABNORMAL) PTH Intact Total (08/14/2024 12:42 PM EDT) Pathologist [facility] PTH Intact Total 112(H) 9 - 77 pg/mL 08/14/2024 4:07 PM EDT [facility] Blood Venous blood specimen / Unknown Venipuncture / Unknown 08/14/2024 12:42 PM EDT 08/14/2024 12:43 PM EDT Narrative [facility] - 08/14/2024 4:07 PM EDT Assay performed by immunoassay at the [facility]. Performed on Whiting Siderographist chemiluminescent immunoassay, tractable to the World Health Organization's first international standard for PTH from the NIBSC, Code 79/500. Results obtained from different test methods or kits cannot be used interchangeably. Sana Strong MD LAB BLOOD ORDERABLES Final Res ult Performing Organization Address [facility] Co de Phone Number [facility] [address] [place] [address] * Renal Function Panel, Plasma (08/14/2024 12:42 PM EDT) Glucose, Plasma 93 74 - 99 mg/dL 08/14/2024 2:54 PM EDT [facility] BUN, Plasma 10 8 - 23 mg/dL 08/14/2024 2:54 PM EDT [facility] Creatinine, Plasma 0.95 0.60 - 1.10 mg/dL 08/14/2024 2:54 PM EDT [facility] BUN/Creatinine Ratio 11 08/14/2024 2:54 PM EDT [facility] Sodium, Plasma 143 136 - 145 mmol/L 08/14/2024 2:54 PM EDT [facility] Potassium, Plasma 3.9 3.6 - 4.9 mmol/L 08/14/2024 2:54 PM EDT [facility] Chloride, Plasma 105 97 - 107 mmol/L 08/14/2024 2:54 PM EDT [facility] CO2, Plasma 29 22 - 29 mmol/L 08/14/2024 2:54 PM EDT [facility] Anion Gap 9 6 - 16 mmol/L 08/14/2024 2:54 PM EDT [facility] Total Calcium, Plasma 9.4 8.9 - 10.2 mg/dL 08/14/2024 2:54 PM EDT [facility] Phosphorus, Plasma 3.7 2.5 - 4.5 mg/dL 08/14/2024 2:54 PM EDT [facility] Albumin, Plasma 4.3 3.5 - 5.2 g/dL 08/14/2024 2:54 PM EDT [facility] eGFRcr 68.3 mL/min/1.7 3m*2 08/14/2024 2:54 PM EDT [facility] Comment:Reported eGFRcr in m L/min/1.73m2 is based the CKD-EPI 2020 equation that does not use a race coefficient. Blood Venous blood specimen / Unknown Venipuncture / Unknown 08/14/2024 12:42 PM EDT 08/14/2024 12:43 PM EDT us Sana Strong MD LAB BLOOD ORDERABLES Final Res ult [facility] [address] [place] [address] * CT Chest w IV Contrast (11/28/2023 [...] Lupillo Coughlin MD on 11/28/2023 5:01 PM Nevaeh Harrison STRATEGIC PARTNER DEVELOPMENT MANAGER IMG CT PROCEDURES Final Resu lt from Last 3 Months or Most Recently Relevant to Health [place] [address] [employer] MEDICARE Advance Directives * Full Code (Latest Code Status on File) Date Activated Date Inactivated Comments 04/23/2024 12:16 PM 04/24/2024 4:00 PM Question Answer Comments Patient has decision-making capacity? Yes * Full Code Date Activated Date Inactivated Comments 08/08/2021 10:42 PM 08/14/2021 5:13 PM Question Answer Comments Patient has decision-making capacity? Yes Care Teams Shotgun Shell Reprinting Unit Operator Relationship Specialty Start Date End Date Naya Goodwin APRN [address] [place] [address] PCP - General 07/11/20 Chelsey Mascorro [address] [place] [address] [place] [address] Referring Physician Gynecology 01/19/21 Yong Mata MD [facility] [address] [place] [address] Surgeon Pain Medicine 05/12/21 Malena Burton APRN [address] [facility] [address] [place] [address] Nurse Practitioner Urology 06/09/23
--- OUTSIDE RECORDS SUMMARY | 2024-10-31 07:09 | XMS_ITS ---
Author Organization [facility] Address [address] [place] [address] Care Team Providers Care Data Miner Name Role Phone Naya Goodwin APRN Primary Care Provider [phone] Chelsey Mascorro Unavailable Yong Mata MD Unavailable Malena Burton APRN Unavailable [phone] Active Problems Problem Noted Date Diagnosed Date [...]
--- OUTSIDE RECORDS SUMMARY | 2024-10-31 07:09 | XMS_ITS | Encounter Summary ---
Author Organization [facility] Address [address] [place] [address] Care Team Providers Care Clinical Documentation Specialist Name Role Phone Naya Goodwin MEDICAL RECORDS COORDINATOR Primary Care Provider [phone] Chelsey Mascorro Unavailable Yong Mata MD Unavailable Malena Burton APRN Unavailable [phone] Encounter Details Date Type Department Care Team (Late st Contact Info) Description 10/23/2024 Telephone [facility] [address] [facility], [address] [place] [address] Neil Saldana, PharmD [address] [facility] [address] [place] [address] Social History Tobacco Use Types Packs/Day Years [...] as of this encounter Miscellaneous Notes * Clinician Note - Neil Saldana, PharmD - 10/23/2024 1:07 PM EDT Patient returned call to clinic today. She reports Prolia was administered ~1 month ago. However, she did not know exact date. She is agreeable to go to [facility] to collect labs over the next week. I have faxed orders to [facility] F: [phone]. Will follow up once results return. Will also need to confirm administration date with facility. Patient expressed understanding of plan outlined above, encouraged to call clinic with any questions or concerns. Neil Saldana, PharmD, BCACP Clinical Pharmacist Nephrology, [facility] [address] [place] [address] documented in this encounter Plan of Treatment Upcoming Encounters Date Type Department Care Team (Late st Contact Info) Description 12/25/2024 2:30 PM EDT Office Visit [facility] [address] [place] [address] Nevaeh Harrison, MEDICAL RECORDS COORDINATOR [address] [facility] [address] [place] [address] 03/06/2025 1:00 PM EST Clinical Support [facility] Services [address] [facility], 1st [place] [address] 03/20/2025 11:20 AM EST Pharmacist [facility] [address] [facility], [address] [place] [address] Neil Saldana, PharmD [address] [facility] [address] [place] [address] 04/25/2025 1:30 PM EST Office Visit Medical Office Building Surgery [facility] [address] [facility], [address] [place] [address] Arnav Ibarra MD [address] [place] [address] documented as of this encounter [...] documented as of this encounter Care Teams Clinical Documentation Specialist Relationship Specialty Start Date End Date Naya Goodwin, NATALIE [address] [place], [place] [id number] PCP - General 07/11/20 Chelsey Mascorro [address] [place] [address] [place] [address] Referring Physician Gynecology 01/19/21 Yong Mata MD [facility] [address] [place] [address] Surgeon Pain Medicine 05/12/21 Malena Burton APRN [address] [place] [address] Nurse Practitioner Urology 06/09/23 documented as of this encounter
--- OUTSIDE RECORDS SUMMARY | 2024-10-31 07:09 | XMS_ITS | Encounter Summary ---
Author Organization [facility] Address [address] [place] [address] Care Team Providers Care Licensed Midwife Name Role Phone Naya Goodwin DISASTER RECOVERY CONSULTANT Primary Care Provider [phone] Chelsey Mascorro Unavailable Yong Mata MD Unavailable Malena Burton APRN Unavailable [phone] Encounter Details Date Type Department Care Team (Latest Contact Info) Description 10/01/2024 Travel Social History Tobacco Use Types Packs/Day [...] Gynecology [address] [place] [address] Nevaeh Harrison, NATALIE [address] [facility] [address] [place] [address] 03/06/2025 1:00 PM EST Clinical Support [facility] Services [address] [facility], 1st [place] [address] 03/20/2025 11:20 AM EST Pharmacist Visit [facility] [address] [facility], [address] [place] [address] Neil Saldana, PharmD [address] [facility] [address] [place] [address] 04/25/2025 1:30 PM EST Office Visit Medical Office Building Surgery Sp[facility] [address] [facility], [address] [place] [address] Arnav Ibarra MD [address] [facility] [address] [place] [address] documented as of this encounter [...] documented as of this encounter Care Teams Licensed Midwife Relationship Specialty Start Date End Date Naya Goodwin APRN [facility] [place] [address] PCP - General 07/11/20 Chelsey Mascorro [address] [place] [address] [place] [address] Referring Physician Gynecology 01/19/21 Yong Mtaa MD [facility]0 [place] [address] [place] [address] Surgeon Pain Medicine 05/12/21 Malena Burton APRN [address] [facility] [address] [place] [address] Nurse Practitioner Urology 06/09/23 documented as of this encounter
--- OUTSIDE RECORDS SUMMARY | 2024-10-31 07:09 | XMS_ITS | Encounter Summary ---
Author Organization [facility] Address [address] [place] [id number] Care Team Providers Care Foot Drill Operator Name Role Phone Christa Naya Kim SUPERVISOR ADVERTISING DISPATCH CLERKS Primary Care Provider [phone] Chelsey Mascorro Unavailable Yong Mata MD Unavailable Malena Burton SUPERVISOR ADVERTISING DISPATCH CLERKS Unavailable [phone] Reason for Visit * Reason Comments Med Refill Encounter Details Date Type Department Care Team (Late st Contact Info) Description 10/23/2024 Refill [facility] [address] [place] [address] Nevaeh Harrison, SUPERVISOR ADVERTISING DISPATCH CLERKS [address] [facility] [address] [place] [address] Social History Tobacco Use Types [...] [address] [place] [address] Nevaeh Harrison, SUPERVISOR ADVERTISING DISPATCH CLERKS [address] [facility] [address] [place] [address] 03/06/2025 1:00 PM EST Clinical Support [facility] [place] [address] [facility], 1st [place] [address] 03/20/2025 11:20 AM EST Pharmacist Visit [facility] [place] [address] [facility], [address] [place] [address] Neil Saldana, PharmD [address] [facility] [address] [place] [address] 04/25/2025 1:30 PM EST Office Visit Medical Office Building Surgery [facility] [address] [facility], [address] [place] [address] Arnav Ibarra MD [address] [facility] [address] [place] [address] documented as of this encounter [...] documented as of this encounter Care Teams Foot Drill Operator Relationship Specialty Start Date End Date Naya Goodwin, SUPERVISOR ADVERTISING DISPATCH CLERKS [address] [place] [address] PCP - General 07/11/20 Chelsey Mascorro [address] [facility] [address] Referring Physician Gynecology 01/19/21 Yong Mata MD [facility] [address] [place] [address] Surgeon Pain Medicine 05/12/21 Malena Burton APRN [address] [facility] [address] [place] [address] Nurse Practitioner Urology 06/09/23 documented as of this encounter
--- OUTSIDE RECORDS SUMMARY | 2024-10-31 07:09 | XMS_ITS | Encounter Summary ---
Author Organization [facility] Address [address] [place] [id number] Care Team Providers Care Condominium Association Manager Name Role Phone Naya Goodwin BIOMEDICAL ELECTRONICS TECHNICIAN Primary Care Provider [phone] Chelsey Mascorro Unavailable Yong Mata MD Unavailable Malena Burton BIOMEDICAL ELECTRONICS TECHNICIAN Unavailable [phone] Encounter Details Date Type Department Care Team (Late st Contact Info) Description 10/02/2024 Results Follow-Up [facility] [address] [place] [address] Nevaeh Harrison, BIOMEDICAL ELECTRONICS TECHNICIAN [address] [facility] [address] [place] [address] Social History Tobacco Use Types [...] encounter Miscellaneous Notes * Telephone Encounter - Nevaeh Harrison APRN - 10/02/2024 3:11 PM EDT Left message with vulvar biopsy documented in this encounter Plan of Treatment Upcoming Encounters Date Type Department Care Team (Late st Contact Info) Description 12/25/2024 2:30 PM EDT Office Visit [facility] [address] [place] [address] Nevaeh Harrison APRN [address] [facility] [address] [place] [address] 03/06/2025 1:00 PM EST Clinical Support [facility] Services [address] [facility], 1st [place] [address] 03/20/2025 11:20 AM EST Pharmacist Visit [facility] [address] [facility], [address] [place] [address] Neil Saldana, PharmD [address] [facility] [address] [place] [address] 04/25/2025 1:30 PM EST Office Visit Medical Office Building Surgery Sp[facility] Joint [address] [facility], [address] [place] [address] Arnav Ibarra MD [address] [facility] [address] [place] [address] documented as of this encounter [...] documented as of this encounter Care Teams Condominium Association Manager Relationship Specialty Start Date End Date Naya Goodwin APRN [facility] [place] [address] PCP - General 07/11/20 Chelsey Mascorro [address] [place] [address] [place] [address] Referring Physician Gynecology 01/19/21 Yong Mata MD [address] [facility] [address] [place] [address] Surgeon Pain Medicine 05/12/21 Malena Burton APRN [address] [place] [address] Nurse Practitioner Urology 06/09/23 documented as of this encounter
--- OUTSIDE RECORDS SUMMARY | 2024-10-31 07:09 | XMS_ITS | Encounter Summary ---
Author Organization [facility] Address [address] [place] [id number] Care Team Providers Care Resistor Testing Machine Operator Name Role Phone Christa Naya Kim POSTPARTUM NURSE Primary Care Provider [phone] Chelsey Mascorro Unavailable Yong Mata MD Unavailable Malena Burton POSTPARTUM NURSE Unavailable [phone] Reason for Visit * Reason Comments Med Refill Encounter Details Date Type Department Care Team (Late st Contact Info) Description 10/10/2024 Refill [facility] [address] [place] [address] Nevaeh Harrison, POSTPARTUM NURSE [address] [facility] [address] [place] [address] Social History Tobacco Use Types [...] [address] [place] [address] Nevaeh Harrison, POSTPARTUM NURSE [address] [facility] [address] [place] [address] 03/06/2025 1:00 PM EST Clinical Support [facility] Laboratory Services [address] [facility], 1st [place] [address] 03/20/2025 11:20 AM EST Pharmacist Visit [facility] Bone [facility] Mineral Metabolism [address] [facility], [address] [place] [address] Neil Saldana, PharmD [address] [facility] [address] [place] [address] 04/25/2025 1:30 PM EST Office Visit Medical Office Building Surgery Spine & Joint [address] [facility], [address] [place] [address] Arnav Ibarra MD [address] [facility] [address] [place] [address] documented as of this encounter [...] documented as of this encounter Care Teams Resistor Testing Machine Operator Relationship Specialty Start Date End Date Naya Goodwin, POSTPARTUM NURSE [address] [place] [address] PCP - General 07/11/[address] [facility] [place] [address] Referring Physician Gynecology 01/19/21 Yong Mata MD [facility] [address] [place] [address] Surgeon Pain Medicine 05/12/21 Malena Burton APRN [address] [facility] [address] [place] [address] Nurse Practitioner Urology 06/09/23 documented as of this encounter
--- OUTSIDE RECORDS SUMMARY | 2024-10-31 07:09 | XMS_ITS | Encounter Summary ---
Author Organization [facility] Address [address] [place] [address] Care Team Providers Care Assembler Plastic Boat Name Role Phone GoodwinNaya morris Judy FINAL INSPECTOR Primary Care Provider [phone] Chelsey Mascorro Unavailable Yong Mata MD Unavailable Malena Burton FINAL INSPECTOR Unavailable [phone] Encounter Details Date Type Department Care Team (Late Contact Info) Description 05/01/2021 Telephone [facility] Interventional Radiology [address] [place] [address] Erin Dolan RN CH-VASCULAR & [...] [address] [place] [address] Nevaeh Harrison, FINAL INSPECTOR [address] [facility] [address] [place] [address] 03/06/2025 1:00 PM EST Clinical Support [facility] Laboratory Services [address] [facility], 1st [place] [address] 03/20/2025 11:20 AM EST Pharmacist Visit [facility] Mineral Met[facility] [address] [facility], [address] [place] [address] Neil Saldana, PharmD [address] [facility] [address] [place] [address] 04/25/2025 1:30 PM EST Office Visit Medical Office Building Surgery Spine & Joint [address] [facility], [address] [place] [address] Arnav Ibarra MD [address] [facility] [address] [place] [address] documented as of this encounter [...] documented as of this encounter Care Teams Assembler Plastic Boat Relationship Specialty Start Date End Date Naya Goodwin APRN [address] [place] [address] PCP - General 07/11/20 Chelsey Mascorro [address] [place] [address] [place] [address] Referring Physician Gynecology 01/19/21 Yong Mata MD [facility] [address] [place] [address] Surgeon Pain Medicine 05/12/21 Malena Burton APRN [address] [address] Nurse Practitioner Urology 06/09/23 documented as of this encounter
[2024-10-31 08:29] LABS: Albumin Level 3.8 g/dl (3.5-5.0); Anion Gap 8.3 mEq/L (5-15); Blood Urea Nitrogen 10 mg/dl (7-17); Calcium 8.4 mg/dl (8.4-10.2); Carbon Dioxide 32 mmol/L (22.0-30.0); Chloride 105 mmol/L (98-107); Creatinine,Serum 0.80 mg/dl (0.52-1.04); Estimated Glomerular Filt Rate 73 ml/min (>60); GFR (African American) 88 ML/MIN (>60); Glucose 58 mg/dl (74-100); Phosphorous 3.4 mg/dl (2.5-4.5); Potassium 4.3 mmoL/L (3.5-5.1); Sodium 141 mmol/L (136-145)
== END 2024-10-31 23:59 | disposition home or self-care (01) ==
LOC: LAB 07:07
PROVIDERS: PCP Nurse Practitioner Family; Visit Provider Internal Medicine
DX: M81.0 Age-related osteoporosis without current pathological fracture (principal)
CPT/HCPCS: 36415; 80069

== ENCOUNTER 2024-12-14 12:04 | Emergency (ER) | payer MEDICARE, MEDICAID, SELFPAY ==
[2024-12-14] VITALS (7 sets, daily range): BP systolic 91–138; BP diastolic 52–81; PULSE 66–90; RESP 17–18; TEMP 36.9; O2SAT 96–98; BMI 23.3
--- NOTE | 2024-12-14 12:31 | CT_ITS ---
FINAL REPORT TECHNIQUE: Thin section axial images were obtained from skull base to vertex without contrast. Coronal reconstruction images were obtained from the axial data. Exam was performed using dose reduction techniques such as automated exposure control, adjustment of the mA and kV according to patient size, and use of iterative reconstruction technique. CLINICAL HISTORY: subacute dysequilibrium, R neck pain COMPARISON: 04/17/2021 FINDINGS: There is no mass effect or midline shift. There is no hydrocephalus. There is no intracranial hemorrhage. The posterior fossa is without acute abnormality. The basilar cisterns are preserved. The soft tissues are without acute abnormality. No acute osseous abnormality is identified. IMPRESSION: No acute intracranial abnormality. Reviewed, Interpreted and Dictated by Dena Morocho MD Transcribed by Bina Huerta Authenticated and [facility]
--- NOTE | 2024-12-14 12:31 | CT_ITS ---
FINAL REPORT TECHNIQUE: Thin section axial images are obtained through the brain after intravenous contrast injection. Multiplanar reconstructions were obtained from the axial data. Exam was performed using dose reduction techniques such as automated exposure control, adjustment of the mA and kV according to patient size, and use of iterative reconstruction technique. CLINICAL HISTORY: subacute dysequilibrium, R neck pain FINDINGS: The intracerebral portions of the carotid arteries are patent. The anterior and middle cerebral arteries are patent without stenosis or occlusion. The posterior cerebral arteries are patent. The basilar artery is patent. The left vertebral artery terminates in a cerebellar branch. The right vertebral artery becomes the basilar artery. There is no significant stenosis, aneurysm, or AVM. IMPRESSION: No large vessel occlusion or significant stenosis. No aneurysm. Reviewed, Interpreted and Dictated by Dena Morocho MD Transcribed by Bina Huerta Authenticated and [facility]
--- NOTE | 2024-12-14 12:31 | CT_ITS ---
FINAL REPORT TECHNIQUE: Thin section axial images were obtained from the aortic arch to the skull base after intravenous contrast injection per CTA protocol. Multiplanar reconstruction images were obtained. Exam was performed using dose reduction techniques and the ALARA principle. CLINICAL HISTORY: subacute dysequilibrium, R neck pain FINDINGS: CTA NECK: Aortic arch: There is bovine configuration to the arch with separate origin of the left vertebral artery. There is no significant stenosis of the great vessels at their origins. Right carotid artery: The right common carotid artery is patent without stenosis. The cervical portions of the right internal carotid artery are patent without stenosis. 0% stenosis per NASCET criteria. Left carotid artery: The left common carotid artery is patent without stenosis. There is mild calcified plaque at the bulb. The cervical portions of the left internal carotid artery are patent without stenosis. 0% stenosis per NASCET criteria. Vertebral arteries: The vertebral arteries are patent. No significant stenosis. Other soft tissues: . IMPRESSION: No carotid stenosis identified. Patent vertebral arteries. Reviewed, Interpreted and Dictated by Dena Morocho MD Transcribed by Bina Huerta Authenticated and [facility]
--- OUTSIDE RECORDS SUMMARY | 2024-12-14 12:31 | XMS_ITS | Encounter Summary ---
Author Organization Healthcare Address [address] [place] [address] Care Team Providers Care Air Conditioning Manager Name Role Phone Naya Goodwin Judy NARROW GAUGE ENGINEER Primary Care Provider + [phone] Chelsey Mascorro Unavailable Yong Mata MD Unavailable Malena Burton NARROW GAUGE ENGINEER Unavailable [phone] Encounter Details Date Type Department Care Team (Late Contact Info) Description 05/01/2021 Telephone [facility] Interventional Radiology [address] [place] [address] Erin Dolan RN CH-VASCULAR & [...] [address] [place] [address] Nevaeh Harrison, NARROW GAUGE ENGINEER [address] [facility] [address] [place] [address] 03/06/2025 1:00 PM EST Clinical Support [facility] Laboratory Services [address], 1st [place] [address] 03/20/2025 11:20 AM EST Pharmacist Visit [facility] Bone & Mineral Metabolism [address] [facility], [address] [place] [address] Neil Saldana, PharmD [address] [place] [address] 03/27/2025 1:00 PM EST Office Visit [facility] [address], [address] [place] [address] Malena Burton, NARROW GAUGE ENGINEER [address] [place] [address] 04/25/2025 1:30 PM EST Office Visit Medical Office Building [facility] [address] [facility], [address] [place] [address] Arnav Ibarra MD [address] [place] [address] documented as of this encounter [...] documented as of this encounter Care Teams Air Conditioning Manager Relationship Specialty Start Date End Date Naya Goodwin, NARROW GAUGE ENGINEER [facility] [place] [id number] PCP - General 07/11/20 Chelsey Mascorro [address] [place] [address] Referring Physician Gynecology 01/19/21 Yong Mata MD [facility] [address] [place] [address] Surgeon Pain Medicine 05/12/21 Malena Burton APRN [address] [address] Nurse Practitioner Urology 06/09/23 documented as of this encounter
--- OUTSIDE RECORDS SUMMARY | 2024-12-14 12:31 | XMS_ITS | Encounter Summary ---
Author Organization [facility] Address [address] [place] [id number] Care Team Providers Care Chief Engineer'S Helper Name Role Phone Christa Naya Kim RUSH SEATER Primary Care Provider [phone] Chelsey Mascorro Unavailable Yong Mata MD Unavailable Malena Burton APRN Unavailable [phone] Reason for Visit * Reason Comments Med Refill Encounter Details Date Type Department Care Team (Late st Contact Info) Description 10/26/2024 Refill [facility] Gynecology [address] [place] [address] Nevaeh Harrison, RUSH SEATER [address] [place] [facility] [address] [place] [address] Yeast infection of the vagina; Vaginal itching [...] [address] [place] [address] Nevaeh Harrison S, RUSH SEATER [address] [facility] [address] [place] [address] 03/06/2025 1:00 PM EST Clinical Support [facility] Laboratory Services [address] [facility], 1st [place] [address] 03/20/2025 11:20 AM EST Pharmacist Visit [facility] Bone & Mineral Metabolism [address] [facility], [address] [place] [address] Neil Saldana, PharmD [address] [facility] [address] [place] [address] 03/27/2025 1:00 PM EST Office Visit [place] [facility] [address], [address] [place] [address] Malena Burton, RUSH SEATER [address] [place] [address] 04/25/2025 1:30 PM EST Office Visit Medical Office Building Surgery Sp[facility] [address] [facility], [address] [place] [address] Arnav Ibarra MD [address] [facility] [address] [place] [address] documented as of this encounter [...] as of this encounter Care Teams Chief Engineer'S Helper Relationship Specialty Start Date End Date Naya Goodwin APRN [facility] [place], [place] [phone] PCP - General 07/11/20 Chelsey Mascorro [address] [place] [address] [place], [place] [id number] Referring Physician Gynecology 01/19/21 Yong Mata MD [facility] [address] [place] [address] Surgeon Pain Medicine 05/12/21 Malena Burton APRN [address] [facility] [address] [place] [address] Nurse Practitioner Urology 06/09/23 documented as of this encounter
--- OUTSIDE RECORDS SUMMARY | 2024-12-14 12:31 | XMS_ITS ---
Author Organization [facility] Address [address] [place] [address] Care Team Providers Care Artificial Breeding Ranch Supervisor Name Role Phone Naya Goodwin APRN Primary Care Provider [phone] Chelsey Mascorro Unavailable Yong Mata MD Unavailable Malena Burton APRN Unavailable [phone] Active Problems Problem Noted Date Diagnosed Date Spondylolisthesis at L4-L5 level 04/23/2024 Lumbar stenosis with neurogenic claudication Lumbosacral spondylosis with radiculopathy 01/15 Lumbar spondylosis 07/14/2023 Intestinal malabsorption 07/07/2023 Spondylolisthesis of lumbosacral region 07/07/19 24 Pelvic floor dysfunction 06/09/2023 Age-related osteoporosis wit hout current pathological fracture 05/25/2023 Secondary hyperparathyroidism, non-renal 024 Right upper quadrant abdominal pain 08/08/2021 Irritable [...] Therapy Plans No current plan information found. Past Treatment and Therapy Plans Lifetime Dose Tracking * Chemical Lifetime Dose Automatic Entry Manual Entr y Fluoro Time 2.27 minutes 2.27 minutes 0 minutes Air Kerma 40.6 mGy 40.6 mGy 0 mGy Resolved Problems Problem Noted Date Diagnosed Date Resolved Date Spondylolisthesis of lumbar region 01/16/2024 08/14/2024 Weight loss 07/07/2023 11/18/2024 Recurrent UTI 04/11/2023 11/18/2024 Vulvar cancer 07/13/2019 08/08/2021 Overview (08/08/2021): Malignant neoplasm of vulva, unspecified DDD (degenerative disc disease), lumbar 03/07/2015 08/08/2021 Low back pain 01/20/2015 08/08/2021
--- OUTSIDE RECORDS SUMMARY | 2024-12-14 12:31 | XMS_ITS | Clinical Summary ---
Author Organization [facility] Address [address] [place] [address] Care Team Providers Care Computer Technician Name Role Phone Naya Goodwin APRN Primary Care Provider [phone] Chelsey Mascorro Unavailable Yong Mata MD Unavailable Malena Burton APRN Unavailable [phone] Allergies Active Allergy Reactions Criticality Noted Date [...] daily. 30 tablet 11 5 026 Active Oteseconazole, 12 Week, (Vivjoa) 150 MG capsule therapyIndications :Yeast infection of the vagina,Vaginal itching Take 1 capsule by mouth 1 time per week. 18 each 3 5 Active lidocaine-prilocai ne (Emla) 2.5-2.5 % cream Apply to vulvar biopsy area 5 g 1 5 Active Premarin vaginal cream INSERT 1 GRAM INTO THE VAGINA 2 (TWO) TIMES A WEEK. 30 g 5 Active Active Problems Problem Noted Date Diagnosed [...] Encounters Date Type Department Care Team Description 12/13/2024 Telephone [facility] [address], 2[address] [place] [id number] Malena Burton, [employer] WIREMAN 11/07/2024 Telephone [facility] Gynecology [address] [place] [address] ChristyIzaiahi S, [employer] WIREMAN 10/26/2024 Refill [facility] Gynecology [address] [facility] [address] [place] [address] ChristyIzaiahi S, [employer] WIREMAN Yeast infection of the vagina; Vaginal itching 10/23/2024 [facility] [address] [facility], [address] [place] [address] Neil Saldana, PharmD 10/23/2024 Refill [facility] Gynecology [address] [address] [place] [address] [place] SpringsIzaiah romeroi S, [employer] WIREMAN 10/10/2024 Refill [facility] Gynecology [address] [address] [address] [place] [address] [place] S, [employer] WIREMAN 10/02/2024 Results Follow-Up [facility] Gynecology [address] [address] [address] [place] [address] [place] SpringsNevaeh romero S, [employer] WIREMAN 10/01/2024 8:30 AM EDT Office Visit [facility] [address] [address] [place] [address] ChristyIzaiah romeroi S, [employer] WIREMAN Yeast infection of the vagina (Primary Dx); Vaginal itching; Vulvar dysplasia; Occupational exposure in workplace 10/01/2024 Lab Requisition [facility] Lab [address] [place] [address] Ara Byrnes MD Unspecified general medical examination 10/01/2024 Travel from Last 3 Months Immunizations Immunization Administration [...] Gynecology [address] [place] [address] Nevaeh [place] S, [employer] WIREMAN [address] [place] [address] 03/06/2025 1:00 PM EST Clinical Support [facility] Laboratory Services [address] [facility], 1st [place] [address] 03/20/2025 11:20 AM EST Pharmacist Visit [facility] Bone & Mineral Metabolism [address] [facility], [address] [place] [address] Neil Saldana, PharmD [address] [facility] [address] [place] [address] 03/27/2025 1:00 PM EST Office [facility] [address], 2[address] [place] [address] Malena Burton, [employer] WIREMAN [address] [place] [address] 04/25/2025 1:30 PM EST Office Visit Medical Office Building Surgery Spine & Joint [address] [facility], [address] [place] [address] Arnav Ibarra MD [address] [facility] [address] [place] [address] Health Maintenance Due Date Last Done Comments [facility]-Medicare Annual Wellness (AWV) 1962 [facility]-/Child/Adol SDOH Screenings 1962 [facility]- SDOH Screenings 1980 [facility]-Adult SDOH Screenings 1980 [facility]-DTaP,Tdap,and Td Vaccines (1 - Tdap) 1981 CT Colonography 11/25/2007 Colonoscopy 11/25/2007 FIT-DNA 11/25/2007 FIT 11/25/2007 FOBT 11/25/2007 Sigmoidoscopy 11/25/2007 [facility]-Colorectal Cancer Screening 11/25/2007 [facility]-Breast Cancer Screening 2012 [facility]-Pneumococcal Vaccine: 50+ Years (1 of 1 - PCV) 2012 [facility]-Zoster Vaccines (1 of 2) 2012 [id number] Vaccine ( season) 2024 03/16/2023, 10/09/2021, 02/25/2021, Additional history [...] this topic Medical Devices Implanted Type Area Compliance Engineer Products Device Identifier Shelf Expiration Date Model / Serial / Lot Single Inner Setscrew - [id number] Implanted:Qty: 4 on 04/23/2024 by Arnav Ibarra MD at [facility] Screw N/A: Spine Lumbar Souktel [id number] / / N/A Screw 5.5mm Viper Ti Fen Crtcl Polyax 7mm X 40mm - [id number] Implanted:Qty: 2 on 04/23/2024 by Arnav Ibarra MD at [facility] Screw N/A: Spine Lumbar DePuy Spine Sales [id number] / / N/A Screw 5.5mm Viper Ti Fen Crtcl Polyax 6mm X 40mm - [id number] Implanted:Qty: 2 on 04/23/2024 by Arnav Ibarra MD at [facility] Screw N/A: Spine Lumbar DePuy Spine Sales [id number] / / N/A Nerve Stimulator N/A: Back Matrix Fibergraft Bg Medium 6.25cc - [id number] Implanted:Qty: 1 on 04/23/2024 by Arnav Ibarra MD at [facility] N/A: Spine Lumbar DePuy Spine Sales [id number] 10/25/2026 [id number] / / [id number] Description:Surgeon uses the patients own blood to prepare Pre-Lordosed Terrance W/ Line 35mm - [id number] Implanted:Qty: 2 on 04/23/2024 by Arnav Ibarra MD at [facility] N/A: Spine Lumbar DePuy Spine Sales [id number] / / N/A Procedures Procedure Name Priority [...] Vulvar dysplasia HPV HIGH RISK SCREEN BY LIFT TRUCK MECHANIC-MEDIATED AMPLIFICATION (TMA), WITH REFLEX TO GENOTYPES 16 AND 18/45, THINPREP(SO) Routine 10/01/2024 9:50 AM EDT Vulvar dysplasia SOURCE, BBFE HIV AB/AG W/REFLEX TO HIV 1/2 ANTIBODY DIFFERNTIATION PERFORMABLE STAT 10/01/2024 9:42 AM EDT Unspecified general medical examination SOURCE, [facility] HCV QUANT PCR STAT 10/01/2024 9:42 AM EDT Unspecified general medical examination SOURCE, FE HEPATITIS B S AG STAT 10/01/2024 9:42 AM EDT Unspecified general medical examination SOURCE, FE HIV AB/AG W/REFLEX TO HIV1/2 ANTIBODY DIFFERENTIATION STAT 10/01/2024 9:42 AM EDT Unspecified general medical examination DEXA BONE DENSITY Routine 08/14/2024 12: 46 PM EDT Age-related osteoporosis without current pathological fracture CT CHEST W IV CONTRAST Routine 3:37 PM EDT History of abnormal cervical Pap smear Vulvar dysplasia from Last 3 Months or Most Recently Relevant to Health Maintenance Results * Hepatitis B Surface Antigen (10/01/2024 11:32 AM EDT) Hepatitis B Surf Antigen Negative Negative 10/01/2024 11:32 AM EDT [facility] Blood Venous blood specimen / Unknown 10/01/2024 10:10 AM EDT Nevaeh S Christy [employer] WIREMAN LAB BLOOD ORDERABLES Final R esult Performing Organization Address [facility] Co de Phone Number [facility] [address] [place] [address] * HIV 1 & 2 Antibody/Antigen Screen (10/01/2024 10:50 AM EDT) HIV 1 & 2 Antibody/Antigen Screen Non Reactive Non Reactive 10/01/2024 10:50 AM EDT [facility] Comment:Screening for HIV 1 & 2 antibodies, and P24 antigen is NONREACTIVE. No confirmatory testing is required. Blood Venous blood specimen / Unknown 10/01/2024 10:10 AM EDT us Nevaeh [place] [employer]LECT[employer] WIREMAN LAB BLOOD ORDERABLES Final R esult Performing Organization Address [facility] Co de Phone Number [facility] [address] [place] [address] * Hepatitis C Antibody (10/01/2024 10:50 AM EDT) Hepatitis C Antibody Negative Negative 10/01/2024 10:50 AM EDT [facility] Blood Venous blood specimen / Unknown 10/01/2024 10:10 AM EDT Nevaeh [place] X [employer]LECT[employer] WIREMAN LAB BLOOD ORDERABLES Final [facility] Performing Organization Address [facility] de Phone Number [facility] [address] [place] [address] * Biopsy vulva (10/01/2024 10:30 AM EDT) [...] Bleeding and pain Alternatives discussed: Delayed treatment [place] protocol: Procedure explained and questions answered to [...] Consent signed. Post-procedure details: Procedure completion: Tolerated us Nevaeh [place] APRN IN CLINIC/BEDSIDE ORDERABLES Final Result * Genotypes 16 and 18/45, ThinPrep (SO) (10/01/2024 9:50 AM EDT) HPV Source Not Provided 10/11/2024 3:48 PM EDT [facility] ([facility]lipt[facility]) HPV Genotype 16 by TMA Not Detected 10/11/2024 3:48 PM EDT [facility] ([facility]pt[facility]) HPV Genotype 18/45 by TMA Not Detected 10/11/2024 3:48 PM EDT [facility] ([facility]) Thin Prep Vaginal structure / Unknown 10/01/2024 9:50 AM EDT 10/05/2024 3:19 PM EDT Narrative [facility] ([facility]) - 10/11/2024 3:48 PM EDT Specimen source was not provided. Please refer to the [facility] Test Directory for validated specimen source information: [email or web address]. Interpret results with caution. INTERPRETIVE INFORMATION: HPV [...] in women under age 21. Performed By: [facility] [address] [place] [address] Wallpaper Cleaner: Duncan Keller MD, PhD CLIA Number: [id number] Nevaeh S [place] [employer] WIREMAN LAB REF LAB BLOOD AND FLUID ORD Final Result [facility] [employer]) [address] [place] [address] * (ABNORMAL) HPV High Risk Screen by Telephone Operator-Mediated Amplification (TMA), with Reflex to Genotypes 16 and 18/45, ThinPrep(SO) (10/01/2024 9:50 AM EDT) HPV Source Not Provided 10/10/2024 4:24 AM EDT [employer] ([facility]li[facility]) HPV, High Risk by TMA Detected(A) 10/10/2024 4:24 AM EDT [facility] ([facility]) Thin Prep Vaginal structure / Unknown 10/01/2024 9:50 AM EDT 10/05/2024 3:19 PM EDT Narrative [facility]) - 10/10/2024 4:24 AM EDT Specimen source was not provided. Please refer to the [facility] Test Directory for validated specimen source information: [email or web address]. Interpret results with caution. HPV, High Risk [...] in women under age 21. Performed By: [facility] [address] [place] [address] Wallpaper Cleaner: Duncan Keller MD, PhD CLIA Number: [id number] us Nevaeh [place] [employer] W[employer]MAN LAB REF LAB BLOOD AND FLUID ORD Final Result [facility] ([facility]) [address] [place] [address] * Surgical Pathology Exam (10/01/2024 9:50 AM EDT) Case Report Surgical Pathology Case: [id number] Authorizing Provider: Nevaeh [place] APRN Collected: 10/01/2024 0950 Ordering Location: [facility] Gynecology Received: 10/01/2024 1526 Pathologist: Jacob Haley MD Specimen: Vulva, vulva 10/02/2024 3:00 PM EDT [facility] Final Diagnosis VULVA, BIOPSY: - SQUAMOUS EPITHELIUM WITH NO SIGNIFICANT HISTOLOGIC ABNORMALITY. 10/02/2024 3:00 PM EDT [facility] at 1500 EDT Comment Deeper levels are examined. 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 VULVA Received in formalin labeled vulva is one white-ontiveros soft tissue fragment measuring 0.2 cm. Entirely submitted in cassette A1. Cold Time: 0 Sadia Ny 10/02/2024 3:00 PM EDT [facility] Note: A resident was involved in the service. I attest I examined the relevant preparations for the specimens and confirmed the diagnosis or interpretation. 10/02/2024 3:00 PM EDT [facility] Tissue Vulval structure / Unknown Non-blood Collection / Unknown 10/01/2024 9:50 AM EDT 10/01/2024 3:26 PM EDT us Nevaeh [place] APRN LAB PATHOLOGY ORDERABLES Theodore reyna Result [facility] [address] [place] [address] * Pap Test (10/01/2024 9:50 AM EDT) Case Report Cytology Case: [id number] Authorizing Provider: Nevaeh [place] APRN Collected: 10/01/2024 0950 Ordering Location: [facility] Gynecology Received: 10/02/2024 1107 First Screen: Chelsey Travis Rescreen: Josephine Miller Specimen: ThinPrep Pap Test, Liquid-Based Vaginal 10/05/2024 3:19 PM EDT [facility] Interpretation NEGATIVE FOR INTRAEPITHELIAL LESION OR MALIGNANCY 10/05/2024 3:19 PM EDT [facility] at 1519 EDT Specimen Adequacy Satisfactory for evaluation. Slide examined with [employer] ThinPrep Imaging System but manually screened for technical reasons. 10/05/2024 3:19 PM EDT [facility] Cervical cytology is a [...] results is suggested (please call Microbiology at [phone] for results). 10/05/2024 3:19 PM EDT [facility] Menstrual Status Not Applicable 09/2024 3:19 PM EDT [facility] Contraceptive History Not Applicable 10/05/2024 3:19 PM EDT [facility] Screening Type Previous or Suspected Abnormality 10/05/2024 3:19 PM EDT [facility] HPV Testing Requested? 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 10/05/2024 3:19 PM EDT [facility] Clinical Information N90.3 - Vulvar dysplasia [ICD-10-CM] 10/05/2024 3:19 PM EDT [facility] Thin Prep Vaginal structure / Unknown 10/01/2024 9:50 AM EDT 10/02/2024 11:07 AM EDT us Nevaeh [place] APRN LAB CYTOLOGY ORDERABLES Niru l Result Performing Organization Address City/[facility]/ZIP Co de Phone Number [facility] [address] [place] [address] * Source, BBFE HIV AB/AG w/Reflex to HIV1/2 Antibody Differentiation (10/01/2024 9:42 AM EDT) HIV 1 & 2 Antibody/Antigen Screen Non Reactive Non Reactive 10/01/2024 11:30 AM EDT [facility] Comment:Screening for HIV 1 & 2 antibodies, and P24 antigen is NONREACTIVE. No confirmatory testing is required. Blood Venous blood specimen / Unknown 10/01/2024 9:42 AM EDT 10/01/2024 10:12 AM EDT us Ara Byrnes MD LAB BLOOD ORDERABLES Final Re sult [facility] [address] [place] [address] * Source, BBFE HCV Quant PCR (10/01/2024 9:42 AM EDT) Hepatitis C Virus (HCV) Quantitative Interpretation Not Detected Not Detected. 10/03/2024 2:38 PM EDT [facility] Blood Venous blood specimen / Unknown 10/01/2024 9:42 AM EDT 10/01/2024 10:12 AM EDT Narrative [facility] - 10/03/2024 2:38 PM EDT The Edu[employer]ia M2000 HCV test is a Real Time [...] ORDERABLES Final Re sult Performing Organization Address [facility] [place] [address] * Source, BBFE Hepatitis B S AG (10/01/2024 9:42 AM EDT) Hepatitis B Surf Antigen Negative Negative 10/01/2024 11:30 AM EDT [facility] Blood Venous blood specimen / Unknown 10/01/2024 9:42 AM EDT 10/01/2024 10:12 AM EDT Ara Byrnes MD LAB BLOOD ORDERABLES Final Re sult Performing Organization Address [facility] [place] [address] * Dexa Bone Density (08/14/2024 12:46 PM EDT) Anatomical Region Laterality Modality L-spine Radiographic Mitra ging Narrative 08/18/2024 9:02 PM EDT [facility] - [facility] [address] [place] [address] DXA Bone Densitometry Report: [08/14/2024] BMD test performed using the [employer] DXA System (analysis version: 14.10) manufactured by [employer]. REFERRING PROVIDER: Dr. Sana Strong MD CLINICAL [...] of change in BMD). Sana Strong MD IM DXA PROCEDURES Final Resul t * CT Chest w IV Contrast (11/28/2023 [...] MD on 11/28/2023 5:01 PM us Nevaeh [place] [employer] WIREMAN IMG CT PROCEDURES Final Resu lt from Last 3 Months or Most Recently Relevant [place] [address] [facility] MEDICARE Advance Directives * Full Code (Latest Code Status on File) Date Activated Date Inactivated Comments 04/23/2024 12:16 PM 04/24/2024 4:00 PM Question Answer Comments Patient has decision-making capacity? Yes * Full Code Date Activated Date Inactivated Comments 08/08/2021 10:42 PM 08/14/2021 5:13 PM Question Answer Comments Patient has decision-making capacity? Yes Care Teams Computer Technician Relationship Specialty Start Date End Date Naya Goodwin APRN [address] [place] [address] PCP - General 07/11/20 Chelsey Mascorro [address] [place] [address] Dr [place]VO [place] [address] Referring Physician Gynecology 01/19/21 Yong Mata MD [address] [facility] [address] [place] [address] Surgeon Pain Medicine 05/12/21 Malena Burton APRN [id number] [place] [address] Nurse Practitioner Urology 06/09/23
--- OUTSIDE RECORDS SUMMARY | 2024-12-14 12:31 | XMS_ITS | Encounter Summary ---
Author Organization [facility] Address [address] [place] [id number] Care Team Providers Care Railroad Auditor Name Role Phone Christa Naya Kim MIDDLEWARE ARCHITECT Primary Care Provider [phone] Chelsey Mascorro Unavailable Yong Mata MD Unavailable Malena Burton MIDDLEWARE ARCHITECT Unavailable [phone] Reason for Visit * Reason Comments Med Refill Encounter Details Date Type Department Care Team (Late st Contact Info) Description 10/23/2024 Refill [facility]ne[facility] [address] [place] [id number] Nevaeh [place], MIDDLEWARE ARCHITECT [address] Samson [facility] [address] [place] [address] Social History Tobacco Use Types [...] [address] [place] [address] [place], MIDDLEWARE ARCHITECT [address] [facility] [address] [place] [id number] 03/06/2025 1:00 PM EST Clinical Support [facility] Laboratory Services [address] [facility], 1st [place] [address] 03/20/2025 11:20 AM EST Pharmacist Visit [facility] Bone & Mineral Metabolism [address] [facility], [address] [place] [address] Neil Saldana, PharmD [address] [facility] [address] [place] [address] 03/27/2025 1:00 PM EST Office Visit [facility] [address], [address] [place] [address] Malena Burton, MIDDLEWARE ARCHITECT [address] [place] [address] 04/25/2025 1:30 PM EST Office Visit Medical Office Building Surgery Spine & Joint [address] [facility], [address] [place] [address] Arnav Ibarra MD [address] [facility] [address] [place] [address] documented as of this encounter [...] documented as of this encounter Care Teams Railroad Auditor Relationship Specialty Start Date End Date Naya Goodwin APRN [facility] [place] [address] PCP - General 07/11/20 Chelsey Mascorro [address] [place] [address] [facility] [address] Referring Physician Gynecology 01/19/21 Yong Mata MD [id number] [place] [address] Surgeon Pain Medicine 05/12/21 Malena [place] APRN [id number] [place] [address] Nurse Practitioner Urology 06/09/23 documented as of this encounter
--- OUTSIDE RECORDS SUMMARY | 2024-12-14 12:31 | XMS_ITS | Data Portability ---
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 Reviewed calcium needs, exercise, and prevention of osteoporosis . Periodic colonoscopy screening recommended . Reviewed normal menopause and menopausal symptoms . Mammogram recommended yearly . Not available 05/07/2019 12:43:18 Plan of Treatment [...] 2019 020 [facility], [address], [place], [address], 0 13:10:15 pathology study 2019 020 [facility], [address], [address], [place], [address], 0 14:08:13 pap, IG + CT/NG + [...] [address], [address], [place], [address], 0 20:07:51 urinalysis , dipstick 2018 019 [facility], [address] [place] [address] , [place], [address], 9 11:28:54 culture, urine 2018 019 [facility], [address], [address], [place], [address], 9 06:10:13 urinalysis , complete 2018 019 [facility], [address], [place] [address], [place], [address], 9 06:10:12 pap, IG + CT/NG + reflex HPV (16+18) - 02/10/18 ascus + hpv; 09/12/17 ascus + hpv; 02/08/17 wnl pos hpv (+16); 02/03/16 wnl pos hpv; 11/19/10wnl 2018 019 [facility], [address], [place] [address], [place], [address], 9 12:10:00 Referral None recorded. Procedures None recorded. Surgeries None recorded. Imaging MAMMO, screening, bilateral 2018 [facility] (X-Ray), [address], [place], [address], 0 09:27:00 Medication Orders Fosamax 70 mg tablet 2019 INTERFACE [facility], [address] [place], [address], 0 16:22:24 Vistaril 25 mg capsule 2019 elisrene [facility], [address] [place], [address], 0 20:58:26 Premarin 0.625 mg/gram vaginal cream 2019 INTERFACE [facility], [address] [place], [address], 0 13:32:28 clotrimazo le-betamet hasone 1 %-0.05 % topical cream 2018 019 [id number] [facility], [address] [place], [address], 0 13:32:33 Premarin 0.625 mg/gram vaginal cream 2018 019 [facility], [address] [place], [address], 9 11:30:32 Patient TargetsNo targets recorded. Patient Instructions Encounter Date Encounter Id Patient Instructions Last Modified By Organization Details Last Modified Time 11/02/2018 [id number] Discussed the spectrum of abnormal pap smears, [...] Procedure reviewed in detail. Written information provided [email or web address] Not available 11/02/2018 10:50:44 05/07/2019 [id number] Quitting Tobacco : Care Instructions [email or web address] Not available 05/07/2019 13:33:30 Reason for Referral None Reported. Results Created Date Observation Date Name Description Value Unit Range Abnormal Flag Note LastModifiedBy Organization Detail LastModifiedTime 11/03/1911/03/2018 urina lysis , compl ete specific gravity 1.009 1.005- 1.030 Not Available [facility] ([facility]) [address] [place], [address], 11/04/2018 06:10:12 11/03/1911/03/2018 urina lysis , compl ete pH 5.5 5.0-7. 5 Not Available [facility] ([facility]) [address] [place], [address], 11/04/2018 06:10:12 11/03/1911/03/2018 urina lysis , compl ete urine-color Yellow yellow Not Available [facility] ([facility]) [address] [place], [address], 11/04/2018 06:10:12 11/03/1911/03/2018 urina lysis , compl ete appearance Clear clear Not Available [facility] ([facility]) [address] [place], [address], 11/04/2018 06:10:12 11/03/1911/03/2018 urina lysis , compl ete WBC esterase Negati ve negati ve Not Available [facility] ([facility]) [address] [place], [address], 11/04/2018 06:10:12 11/03/1911/03/2018 urina lysis , compl ete protein Negati ve negati ve/tra ce Not Available [facility] ([facility]) [address] [place], [address], 11/04/2018 06:10:12 11/03/1911/03/2018 urina lysis , compl ete glucose Negati ve negati ve Not Available [facility] ([facility]) [address] [place], [address], 11/04/2018 06:10:12 11/03/1911/03/2018 urina lysis , compl ete ketones Negati ve negati ve Not Available [facility] ([facility]) [address] [place], [address], 11/04/2018 06:10:12 11/03/1911/03/2018 urina lysis , compl ete occult blood Negati ve negati ve Not Available [facility] ([facility]) [address] [place], [address], 11/04/2018 06:10:12 11/03/1911/03/2018 urina lysis , compl ete bilirubin Negati ve negati ve Not Available [facility] ([facility]) [address] [place], [address], 11/04/2018 06:10:12 11/03/1911/03/2018 urina lysis , compl ete urobilinogen ,semi-qn 0.2 mg/dL 0.2-1. 0 Not Available [facility] ([facility]) [address] [place], [address], 11/04/2018 06:10:12 11/03/1911/03/2018 urina lysis , compl ete nitrite, urine Negati ve negati ve Not Available [facility] ([facility]) [address] [place], [address], 11/04/2018 06:10:12 11/03/1911/03/2018 urina lysis , compl ete microscopic examination Commen t Micro scopi c not indic ated and not perfo rmed. Not Available [facility] ([facility]) [address] [facility], [place], [address], 11/04/2018 06:10:12 11/03/1911/03/2018 cultu re, urine urine culture, routine Final report Not Available [facility] ([facility]) [address] [facility], [place], [address], 11/04/2018 06:10:13 11/03/1911/03/2018 cultu re, urine result 1 No growth Not Available [facility] ([facility]) [address] [facility], [place], [address], 11/04/2018 06:10:13 11/03/1911/06/2018 pap, IG + CT/NG + refle x HPV (16+1 8) chlamydia, nuc. acid amp Negati ve negati ve Not Available [facility] ([facility]) [address] [facility], [place], [address], 11/08/2018 12:10:00 11/03/1911/06/2018 pap, IG + CT/NG + refle x HPV (16+1 8) gonococcus, nuc. acid amp Negati ve negati ve Not Available [facility] ([facility]) [address] [facility], [place], [address], 11/08/2018 12:10:00 11/03/19 19 11/07/2018 pap, IG + CT/NG + refle x HPV (16+1 8) HPV, high-risk Positi ve negati ve abnormal This high- risk HPV test detec ts thirt een high- risk types (16/1 8/31/ 33/35 /39/4 5/51/ 52/56 /58/5 9/68) witho ut diffe renti ation . Not Available [facility] ([facility]) [address] [facility], [place], [address], 11/08/2018 12:10:00 11/03/19 11/08/2018 pap, IG + CT/NG + refle x HPV (16+1 8) diagnosis: Ashley balderas abnormal EPITH ELIAL CELL ABNOR MALIT Y. ATYPI LILLIE SQUAM OUS CELLS OF UNDET ERMIN ED SIGNI FICAN CE (ASC- US). Not Available [facility] ([facility]) [address] [place], [address], 11/08/2018 12:10:00 11/03/19 19 11/08/2018 pap, IG + CT/NG + refle x HPV (16+1 8) specimen adequacy: Ashley t Satis facto ry for evalu ation . Endoc ervic al and/o r squam ous metap lasti c cells (endo cervi lillie compo nent) are prese nt. Not Available [facility] ([facility]) [address] [place], [address], 11/08/2018 12:10:00 11/03/19 19 11/08/2018 pap, IG + CT/NG + refle x HPV (16+1 8) clinician provided ICD10: Ashley balderas R30.0 R87.6 19 Z11.3 Not Available [facility] ([facility]) [address] [place], [address], 11/08/2018 12:10:00 11/03/19 19 11/08/2018 pap, IG + CT/NG + refle x HPV (16+1 8) performed by: Ashley Vallejo , Cytot echno logis t Not Available [facility] ([facility]) [address] [place], [address], 11/08/2018 12:10:00 11/03/1911/08/2018 pap, IG + CT/NG + refle x HPV (16+1 8) electronical ly signed by: Ashley GarciaMcLaren Port Huron HospitalRoddy Asher MD, Patho logis t Not Available [facility] ([facility]) [address] [place], [address], 11/08/2018 12:10:00 11/03/19 19 11/08/2018 pap, IG + CT/NG + refle x HPV (16+1 8) . . Not Available [facility] ([facility]) [address] [facility], [place], [address], 11/08/2018 12:10:00 11/03/1911/08/2018 pap, IG + CT/NG + refle x HPV (16+1 8) pathologist provided ICD10: Ashley balderas R87.6 10 Not Available [facility] ([facility]) [address] [facility], [place], [address], 11/08/2018 12:10:00 11/03/19 19 11/08/2018 pap, IG [...] ts do occur . Not Available [facility] ([facility]) [address] [facility], [place], [address], 11/08/2018 12:10:00 11/03/1911/08/2018 pap, IG + CT/NG + refle x HPV (16+1 8) test methodology: Ashley balderas This liqui d based ThinP rep(R ) pap test was scree vignesh with the use of an image guide essie montalvo. Not Available [facility] ([facility]) [address] [facility], [place], [address], 11/08/2018 12:10:00 11/03/19 19 11/02/2018 urina lysis , dipst ick Leukocytes Negati ve Not Available [facility] [address] [place] [address] , [place], [address], 11/02/2018 11:04:15 11/03/19 19 11/02/2018 urina lysis , dipst ick Nitrite negati ve Not Available [facility] [address] [place] [address] , [place], [address], 11/02/2018 11:04:15 11/03/19 19 11/02/2018 urina lysis , dipst ick Urobilinogen .2 Not Available [facility] [address] [place] [address] , [place], [address], 11/02/2018 11:04:15 11/03/19 19 11/02/2018 urina lysis , dipst ick Protein Negati ve Not Available [facility]/[address] , [place], [address], 11/02/2018 11:04:15 11/03/19 19 11/02/2018 urina lysis , dipst ick pH 8.5 Not Available [facility]/[address] , [place], [address], 11/02/2018 11:04:15 11/03/19 19 11/02/2018 urina lysis , dipst ick Blood Negati ve Not Available [facility] [address] [place] [address] , [place], [address], 11/02/2018 11:04:15 11/03/19 19 11/02/2018 urina lysis , dipst ick Specific [place] 1.015 Not Available [facility] [address] [place] [address] , [place], [address], 11/02/2018 11:04:15 11/03/19 19 11/02/2018 urina lysis , dipst ick Ketone Negati ve Not Available [facility] [address] [place] [address] , [place], [address], 11/02/2018 11:04:15 11/03/1911/02/2018 urina lysis , dipst ick Bilirubin Negati ve Not Available [facility] [address] [place] [address] , [place], [address], 11/02/2018 11:04:15 11/03/1911/02/2018 urina lysis , dipst ick Glucose Negati ve Not Available [facility] [address] [place] [address] , [place], [address], 11/02/2018 11:04:15 11/03/1911/02/2018 urina lysis , dipst ick Appearance Cloudy Not Available [facility] [address] [place] [address] , [place], [address], 11/02/2018 11:04:15 11/03/1911/02/2018 urina lysis , dipst ick Color Yellow Not Available [facility] [address] [place] [address] , [place], [address], 11/02/2018 11:04:15 05/07/19 20 05/08/2019 pap, IG + CT/NG + HR HPV + refle x HPV (16+1 8) chlamydia, nuc. acid amp Negati ve negati ve Not Available [facility] ([facility]) [address] [place], [address], 05/11/2019 20:07:51 05/07/1905/08/2019 pap, IG + CT/NG + HR HPV + refle x HPV (16+1 8) gonococcus, nuc. acid amp Negati ve negati ve Not Available [facility] ([facility]) [address] [facility], [place], [address], 05/11/2019 20:07:51 05/07/19 20 05/09/2019 pap, IG + CT/NG + HR HPV + refle x HPV (16+1 8) HPV, high-risk Positi ve negati ve abnormal This nucle ic acid ampli ficat ion high- risk HPV test detec ts thirt een high- risk types (16,1 8,31, 33,35 ,39,4 5,51, 52,56 ,58,5 9,68) witho ut diffe renti ation . Not Available [facility] ([facility]) [address] [facility], [place], [address], 05/11/2019 20:07:51 05/07/19 20 05/10/2019 pap, IG + CT/NG + HR HPV + refle x HPV (16+1 8) diagnosis: Commen t NEGAT DORIE FOR INTRA EPITH ELIAL LESIO N OR MALIG PURVI . THIS SPECI MEN WAS RESCR EENED PART OF OUR QUALI TY CONTR OL PROGR AM. Not Available [facility] ([facility]) [address] [facility], [place], [address], 05/11/2019 20:07:51 05/07/19 20 05/10/2019 pap, IG + CT/NG + HR HPV + refle x HPV (16+1 8) specimen adequacy: Commen t Satis facto ry for evalu ation . No endoc ervic al compo nent is ident ified . Not Available [facility] ([facility]) [address] [facility], [place], [address], 05/11/2019 20:07:51 05/07/19 20 05/10/2019 pap, IG + CT/NG + HR HPV + refle x HPV (16+1 8) clinician provided ICD10: Commen t N87.0 Not Available [facility] ([facility]) [address] [facility], [place], [address], 05/11/2019 20:07:51 05/07/19 20 05/10/2019 pap, IG + CT/NG + HR HPV + refle x HPV (16+1 8) performed by: Ashley negrete, Cytot echno logis t (ASCP ) Not Available [facility] ([facility]) [address] [place], [address], 05/11/2019 20:07:51 05/07/19 20 05/10/2019 pap, IG + CT/NG + HR HPV + refle x HPV (16+1 8) QC reviewed by: Ashley howelle, Super visor y Cytot echno logis t (ASCP ) Not Available [facility] ([facility]) [address] [place], [address], 05/11/2019 20:07:51 05/07/19 20 05/10/2019 pap, IG + CT/NG + HR HPV + refle x HPV (16+1 8) . . Not Available [facility] ([facility]) [address] [place], [address], 05/11/2019 20:07:51 05/07/19 20 05/10/2019 pap, IG [...] ts do occur . Not Available [facility] ([facility]) [address] [facility], [place], [address], 05/11/2019 20:07:51 05/07/19 20 05/10/2019 pap, IG + CT/NG + HR HPV + refle x HPV (16+1 8) test methodology: Ashley balderas This liqui d based ThinP rep(R ) pap test was scree vignesh with the use of an image guide essie jiménez Not Available [facility] ([facility]) [address] [place], [address], 05/11/2019 20:07:51 05/07/19 20 05/11/2019 pap, IG + CT/NG + HR HPV + refle x HPV (16+1 8) HPV genotype, 16 Positi ve negati ve abnormal Not Available [facility] ([facility]) [address] [place], [address], 05/11/2019 20:07:51 05/07/19 20 05/11/2019 pap, IG + CT/NG + HR HPV + refle x HPV (16+1 8) HPV genotype, 18 Negati ve negati ve Not Available [facility] ([facility]) [address] [facility], [place], [address], 05/11/2019 20:07:51 06/21/19 20 06/26/2019 patho logy study . Commen t Mater ial submi tted: . PART A: endoc ervix - ENDOC ERVIC AL CURET TAGE PART B: vulva - VULVA R BIOPS Y 5:00. Modif iers: 5:00 PART C: vulva - VULVA R BIOPS Y 7:00. Modif iers: 7:00 Not Available [facility] ([facility]) [address] [facility], [place], [address], 06/26/2019 14:08:12 06/21/1906/26/2019 patho logy study . Commen t Clini lillie histo ry: . 5:00; 7:00 Not Available [facility] ([facility]) [address] [place], [address], 06/26/2019 14:08:12 06/21/1906/26/2019 patho logy study . [...] GXA 06/24 1716 Local Not Available [facility] ([facility]) [address] [place], [address], 06/26/2019 14:08:12 06/21/19 20 06/26/2019 patho logy study . Commen t Yen hanson d: . Perico jones MD, Patho logis t Not Available [facility] ([facility]) [address] [place], [address], 06/26/2019 14:08:12 06/21/1906/26/2019 patho logy study . [...] AV 06/21 0733 Local Not Available [facility] ([facility]) [address] [place], [address], 06/26/2019 14:08:12 06/21/19 20 06/26/2019 patho logy study . Commen t Patho logis t provi ded ICD-1 0: N87.0 , D07.1 , D07.1 Not Available [facility] ([facility]) [address] [place], [address], 06/26/2019 14:08:12 06/21/19 20 06/26/2019 patho logy study . Commen t CPT . 19609 1, 53932 2, 96725 3 Not Available [facility] ([facility]) [address] [place], [address], 06/26/2019 14:08:12 01/10/2001/14/2020 pap, IG + HPV [...] NON-O RDERA BLE.* * Not Available [facility] ([facility]) [address] [facility], [place], [address], 01/17/2020 13:10:14 01/10/2001/16/2020 pap, IG + HPV diagnosis: Ashley balderas NEGAT DORIE FOR INTRA EPITH ELIAL LESIO N OR MALIG PURVI . REACT DORIE CELLU LAR GAMEZ ES AND/O R REPAI R ARE PRESE NT. Not Available [facility] ([facility]) [address] [facility], [place], [address], 01/17/2020 13:10:14 01/10/2001/16/2020 pap, IG + HPV specimen adequacy: Ashley t Satis facto ry for evalu ation . No endoc ervic al compo nent is ident ified . Not Available [facility] ([facility]) [address] [facility], [place], [address], 01/17/2020 13:10:14 01/10/2001/16/2020 pap, IG + HPV clinician provided ICD10: Ashley balderas N87.0 R87.8 10 Not Available [facility] ([facility]) [address] [facility], [place], [address], 01/17/2020 13:10:14 01/10/2001/16/2020 pap, IG + HPV performed by: Commen t Elvira y Thomp son, Cytot echno logis t (ASCP ) Not Available [facility] ([facility]) [address] [place], [address], 01/17/2020 13:10:14 01/10/2001/16/2020 pap, IG + HPV electronical ly signed by: Ashley jones MD, Patho logis t Not Available [facility] ([facility]) [address] [place], [address], 01/17/2020 13:10:14 01/10/2001/16/2020 pap, IG + HPV . . Not Available [facility] ([facility]) [address] [facility], [place], [address], 01/17/2020 13:10:14 01/10/2001/16/2020 pap, IG + HPV [...] ts do occur . Not Available [facility] ([facility]) [address] [facility], [place], [address], 01/17/2020 13:10:14 01/10/2001/16/2020 pap, IG + HPV test methodology: Ashley t This liqui d based ThinP rep(R ) pap test was scree vignesh with the use of an image guide essie jiménez Not Available [facility] ([facility]) [address] [place], [address], 01/17/2020 13:10:14 01/10/2001/17/2020 pap, IG + HPV HPV genotype, 16 Positi ve negati ve abnormal Not Available [facility] ([facility]) [address] [facility], [place], [address], 01/17/2020 13:10:14 01/10/2001/17/2020 pap, IG + HPV HPV genotype, 18 Negati ve negati ve Not Available [facility] ([facility]) [address] [facility], [place], [address], 01/17/2020 13:10:14 10/27/19 19 10/04/2018 MAMMO , scree anna marie, digit al, bilat eral No observ ation record ed. [email or web address] [facility] (Scheduling) [address], [place], [address], 10/27/2018 08:26:35 Result Notes None recorded. 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 02/08/17 wnl pos hpv 16 (schedule d colpo) 03/10/17 ECC- MARYLOU-I and HPV changes of squamous cells. 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 pos margins. advise quit smoking f/u 6-12 months Radha Miller APRN [address], [place], [address], [place] - [facility] 0 17:06:37 Problem Notes None recorded. Procedures Surgical History Date Name Laterality Status Provider Name and Address Organization Details Recorded Time 03/19/19 21 robot assisted laparoscopic total hysterectomy completed Radha Miller APRN [address], [place], [address], [place] - [facility] 06/23/2020 14:32:45 03/19/19 21 excision of bilateral fallopian tubes and ovaries completed Radha Miller APRN [address], [place], [address], [place] - [facility] 06/23/2020 14:31:22 07/13/19 20 Vulvectomy simple partial completed Nedra Montero [place] - [facility] 08/20/2019 17:02:25 06/21/19 20 Vulvar Biopsy completed Chelsey Mascroro MD [address], [place], [address], [place] [facility] 06/21/2019 12:36:58 06/21/19 20 Colposcopy completed Chelsey Mascorro MD [address], [place], [address], [place] - [facility] 06/21/2019 12:33:47 06/04/19 20 Colposcopy cancelled Nedra Montero [place] - [facility] 06/01/2019 13:49:44 05/07/19 20 Date of Last Pap Smear completed Radha Miller APRN [address], [place], [address], [place] - [facility] 05/14/2019 10:01:53 10/05/19 19 Date of Last Mammogram completed Radha Miller APRN [address], [place], [address], [place] - [facility] 10/27/2018 08:26:14 05/09/19 19 Cholecystectomy, laparoscopic completed Nedra Montero [place] - [facility] 05/30/2018 14:55:50 04/21/19 19 LEEP Procedure completed Chelsey Mascorro MD [address], [place], [address], [place] [facility] 04/21/2018 14:03:02 04/21/19 19 LEEP completed Nedra Montero [place] - [facility] 04/28/2018 15:52:44 03/30/19 19 Nerve surgery completed Chelsey Mascorro MD [address], [place], [address], [place] [facility] 04/21/2018 13:57:54 03/27/19 19 Colposcopy completed Radha Miller APRN [address], [place], [address], [place] [facility] 03/27/2018 15:46:12 03/27/19 19 Colposcopy completed Nedra Montero [place] - [facility] 04/28/2018 15:53:39 03/27/19 19 colposcopy completed Radha Miller APRN [address], [place], [address], [place] [facility] 03/29/2018 12:48:12 03/01/19 19 stimulation completed Shameka Shannon [place] - [facility] 11/02/2018 10:59:13 09/09/19 18 Most Recent Bone Density completed Radha Paul [address], [place], [address], [place] [facility] 09/11/2017 21:34:01 05/03/19 18 Date of Last Colonoscopy completed Radha Paul [address], [place], [address], [place] [facility] 03/02/2018 13:43:00 03/10/19 18 Colposcopy completed Radhanoman Miller APRN [address], [place], [address], [place] [facility] 03/10/2017 14:25:46 03/10/19 18 Colposcopy completed Radhanoman Miller APRN [address], [place], [address], [place] [facility] 03/17/2017 09:31:51 05/30/19 17 dental surgery completed Radha Miller APRN [address], [place], [address], [place] [facility] 11/08/2018 12:51:47 02/28/19 07 Unlisted px accessory sinus completed Radhanoman Miller [address], [place], [address], [place] [facility] 11/08/2018 12:51:39 03/26/18 98 [facility] 01/14/2016 11:38:30 02/28/18 91 Cyrosurgery of Cervix completed Radha Miller APRN [address], [place], [address], [place] [facility] 11/08/2018 12:51:57 06/10/18 84 Diagnostic Laparoscopy completed Nedra [place] - [facility] 01/14/2016 11:38:04 02/28/18 71 tonsilectomy/doroteo noids completed Shameka Shannon [place] - [facility] 02/10/2018 09:09:03 [facility]14[facility] 11:37:36 Imaging Results None recorded. Procedure Notes None recorded. Medical Equipment None Reported. Allergies Allergen ID Allergen Name Allergen Category Reaction Reaction Severity Criticality Documentation Date Start Date Code Code System Note Provider Name and Address Organization Details Recorded Time 11131 penicilli n V potassium medicatio n anaphylax is Not available Not available 12/05/20152007 5 RxNorm React ion: Anaph ylaxi s; Comme nt: Penic illin V Potinessa sium; Not Available [facility] 6 09:20:16 Medications Name Sig Start [...] Updated DateTime 05/07/2019 157.48 cm 23.4 kg/m2 03109.82 g 113/58 mm[Hg] Shameka Shannon [place] - [facility] 05/07/2019 13:02:58 Date Recorded Body height Body mass index (BMI) Body weight Systolic And Diastolic Provider Name and Address Organization Details Last Updated DateTime 06/21/2019 157.48 cm 23.8 kg/m2 16858.01 g 116/72 mm[Hg] Nedra Montero [place] - [facility] 06/21/2019 08:58:43 Date Recorded Body height Body mass index (BMI) Body weight Systolic And Diastolic Provider Name and Address Organization Details Last Updated DateTime 08/10/2019 157.48 cm 24.1 kg/m2 43884.19 g 118/72 mm[Hg] Nedra Montero [place] - [facility] 08/10/2019 14:25:52 Date Recorded Body height Body mass index (BMI) Body weight Systolic And Diastolic Provider Name and Address Organization Details Last Updated DateTime 11/02/2018 157.48 cm 25.4 kg/m2 56196.34 g 112/68 mm[Hg] Shameka [place] [facility] 11/02/2018 11:03:35 Date Recorded Body height Body mass index (BMI) Body weight Provider Name and Address Organization Details Last Updated DateTime 01/10/2020 157.48 cm 23.6 kg/m2 45632.42 g Shameka [place] - [facility] 01/10/2020 15:58:37 Social History Question Answer Notes LastModified by Organizat ion Details LastModified Time Tobacco Smoking Status Current Every Day Smoker Nedra dunn [place] - [facility] 01/14/2016 11:39:41 Do You Have [...] Or The Highest Degree You Have Received? [id number] Information not available 02/10/2018 How Many Days Of Moderate To Strenuous Exercise, Like A Brisk Walk, Did You Do In The Last 7 Days? 1 [email or web address] Information not available 02/10/2018 On Those Days That You Engage In Moderate To Strenuous Exercise, How Many Minutes, On Average, Do You Exercise? 1 [email or web address] Information not available 02/10/2018 How Hard Is It For You To Pay For The Very Basics Like Food, Housing, Medical Care, And Heating? 1 [email or web address] Information not available 02/10/2018 Live Alone Or With Others? With Others Information not available 02/03/2016 What Was The Date Of Your Most Recent Tobacco Screening? 05/07/2019 [email or web address] Information not available 05/07/2019 How Many Children [...] not available 01/14/2016 General Stress Level Medium [email or web address] Information not available 05/07/2019 Do You Use Sunscreen Routinely? Yes Information not available 02/03/2016 On What Date Was Tobacco Cessation Counseling Provided? 05/07/2019 [email or web address] Information not available 05/07/2019 How Many Years Have You Smoked Tobacco? 40 Off And On [email or web address] Information not available 02/10/2018 Do You Have Difficulty Walking Or Climbing Stairs? No Information not available 02/03/2016 Sex: Female Functional Status Question Answer Note LastModified by Organizat ion Details LastModified Time What is your level of alcohol consumption? None Information not available 02/03/2016 Do you or have you ever used smokeless tobacco? Never used smokeless tobacco [email or web address] Information not available 11/02/2018 Are you currently employed? No Information not available 02/03/2016 Urinary incontinence assessment performed? Yes [email or web address] Information not available 02/10/2018 Are you able to walk independently without assistance or assistive devices? YESWOREST [email or web address] Information not available 02/10/2018 Do you have difficulty doing errands alone? No Information not available 02/03/2016 What is your occupation? disabled Information not available 01/14/2016 Do you have difficulty dressing, bathing, grooming, or toileting? No Information not available 02/03/2016 Do you or have you ever used e-cigarettes or vape? Never used electronic cigarettes [email or web address] Information not available 11/02/2018 What is your exercise level? None Information not available 02/03/2016 Mental Status Question Answer Note LastModified by Organization D etails LastModified Time Do you feel stressed (tense, restless, nervous, or anxious, or unable to sleep at night)? 1 [email or web address] Information not available 05/07/2019 Do you have [...] disease N Blood Diseases N Hyperthyroidism N Blood Transfusion N Rheumatoid arthritis N Erectile Dysfunction N amputation N Skin [...] colitis N Cerebrovascular Disease N Depression N Guillain-[place] N Sleep Apnea N Aneurysm N Bronchitis N Heart Disease N Hypertension N Pre-Eclampsia N Suicidal Ideation N Osteoporosis N Gynecological History Statement/Question Response Abnormal Pap Yes Date of Last Mammogram 10/04/2018 Post Menopausal Bleeding N STIs/STDs Yes Colposcopy 03/27/2018 HPV Vaccine N Current Control Method Menopause Age at Menarche 14 Age at First Child 29 Last Annual Exam/Provider 05/07/19 Ceci louis APRN If Post Menopausal, Age at Menopause 40 [...] quadrivalent, preservative 7 completed Nedra [place] - [facility] 02/08/2017 13:40:07 Influenza, split virus, quadrivalent, preservative 8 completed Shameka Shannon null, [place] - [facility] 02/10/2018 09:05:51 Influenza, split virus, quadrivalent, preservative 9 completed Shameka Shannon null, [facility] 05/07/2019 12:58:33 Influenza, split virus, quadrivalent, preservative 6 completed Not Available [facility] 03/17/2019 03:54:20 Past Encounters Encounter ID Performer Location Encounter Start Date Encounter Closed Date Diagnosis/Indication Diagnosis SNOMED-CT Code Diagnosis ICD10 Code Diagnosis IMO Codes Diagnosis Note [id number] [facility] [address] [place] [address] 11/22/2006 00:00:00 [id number] [facility] [address] [place] [address] 11/19/2010 00:00:00 [id number] NATALIE Almonte FOUNDRY MOLDER [address] [facility] [place] [address] 02/03/2016 10:57:19 02/03/2016 12:26:34 Routine gynecologic examination done 1019266201 9101 Z01.419 Depression screening 171 398332 Z13.89 Diet education 62081865 Z71.3 Counseling 222815852 Z71 .9 Exercise counseljohnathan quinones Patient encouraged to exercise 30 minutes 5 days a week. Examinatio n of blood pressure 293058280 Z01.30 Screening for malignant neoplasm of cervix 315776544 Z12.4 Pap Exam The patient underwent Pap smear screening in [facility] with ASCCP consensus guidelines . If her [...] this plan. Administra tion of influenza vaccine 52396128 Z23 Patient presents for flu vaccinatio n today. No fever. No history of egg allergy. Administer ed as below. 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 Diet education 33228928 Z71.3 Counseling 773187202 Z71 .9 Exercise counsellin g. Patient encouraged to exercise 30 minutes 5 days a week. Examinatio n of blood pressure 538165724 Z01.30 HPV - Luci n papillomavirus test positive 282878068 R87.619 Screening for malignant neoplasm of cervix 447545266 Z12.4 Screening mammography 24 164014 Z12.31 Screening for malignant neoplasm of colon 316817707 Z12.11 Plans to have completed after the first of the year. Screening for malignant neoplasm of ovary 309173468 Z12.73 [id number] NATALIE Almonte FOUNDRY MOLDER [address] [place] [address] [place] [address] 02/10/2018 08:56:59 02/10/2018 10:47:03 Routine gynecologic examination done 9184241865 9101 Z01.419 Depression screening 171 226294 Z13.89 PHQ-9 completed today. Diet education 35168443 Z71.3 Counseling 779539038 Z71 .82 Exercise counsellin g. Patient encouraged to exercise 30 minutes 5 days a week. Examinatio n of blood pressure 745053608 Z01.30 HPV - Luci n papillomavirus test positive 202772137 R87.619 Screening for malignant neoplasm of cervix 898119672 Z12.4 R87.810 Patient advised that I will follow up with results. Screening mammography 24 586754 Z12.31 Screening for malignant neoplasm of colon 350271800 Z12.11 Pt had 05/2017 @ [facility] Vaginal dryness 94326495 N89.8 Viral screening 74574704 4 Z11.59 One time Hep C screening for individual s born between the years of 0426-3669. [id number] NATALIE Almonte FOUNDRY MOLDER [address] [place] [address] [place] [address] 03/10/2017 13:56:24 03/10/2017 14:27:42 HPV - Human papillomavirus test positive 002745728 R87.830 [id number] NATALIE Almonte FOUNDRY MOLDER [address] [place] [address] [place] [address] 09/12/2017 10:07:38 09/12/2017 11:09:03 HPV - Human papillomavirus test positive 883268023 R87.455 [id number] NATALIE Almonte FOUNDRY MOLDER [address] [place] [address] [place] [address] 05/07/2019 12:48:08 05/07/2019 15:17:23 Cervical intraepithelial neoplasia grade 1 364284961 N87.0 R87.810 Z11.3 PAP 2/3 after LEEP Routine gy necologic examination done 7203270207 9101 Z01.419 Depression screening 171 107494 Z13.89 PHQ-9 completed today. Diet education 92629500 Z71.3 Counseling 255052116 Z71 .82 Exercise counseljohnathan smiley. Patient encouraged to exercise 30 minutes 5 days a week. Examinatio n of blood pressure 056945676 Z01.30 Vaccine de clined by patient 3146541125 02 Z28.21 Pt declined flu vaccine today. Screening mammography 24 063843 Z12.31 MMG is due 09/2019 Screening for malignant neoplasm of colon 083119332 Z12.11 Colonoscop y 05/02/17 @ [facility] - repeat in 5 years Vaginal dryness 66045521 N89.8 Continue Premarin cream. Tobacco user 319629549 Z 72.0 Body mass index 20-24 - normal 079450225 Z68.23 [id number] NATALIE Almonte FOUNDRY MOLDER [address] [place] [address] [place] [address] 03/27/2018 14:55:43 03/27/2018 16:23:52 HPV - Human papillomavirus test positive 570448518 R87.619 Abnormal c ervical Papanicolaou smear 785762009 R87.312 [id number] MD Eve Gipson FOUNDRY MOLDER [address] [place] [address] [place] [address] 04/21/2018 12:43:03 04/21/2018 13:53:52 HPV - Human papillomavirus test positive 049942279 R87.810 R87.619 Persistent since 2016, 1 round of testing positive for type XVI, negative for 18. Worst histology have been mild dysplasia 2016. Currently unsatisfac tory possibly my visualizat ion with history of HPV effect on prior ECC. LEEP will be more conclusive on final histology. Plan 2-week postop follow-up and next cytology HPV in 6 months Abdominal bloating 62119 9008 R14.0 Incidental symptom mentioned at completion of visit. Will address further at future visits to include bimanual exam and possible pelvic ultrasound as patient has concerns about ovarian cancer, that were the indication for today's visit not fully addressed yet [id number] MD Eve Gipson FOUNDRY MOLDER [address] [place] [address] [place] [address] 05/30/2018 14:44:48 05/30/2018 15:54:22 HPV - Human papillomavirus test positive 386096295 R87.810 R87.619 Cervical intraepithelial neoplasia grade 1 333648031 N87.0 04/21/18 LEEP mild dysplasia negative margin. 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 Discussed possible limitation s of cervical screening with agglutinat ed os [id number] NATALIE Almonte FOUNDRY MOLDER [address] [place] [address] [place] [address] 11/02/2018 10:46:32 11/02/2018 11:48:50 Vaginal dryness 83717881 N89.8 Continue Premarin cream. Abnormal c ervical Papanicolaou smear 820373918 R87.619 Z11.3 Patient advised that I will follow up with results. - LEEP mild dysplasia negative margin. Advise every 6 month follow-up Pap and HPV surveillan ce until negative x 3, next due September. Dysuria 53362005 R30.0 Vaginal irritation 86435 6004 N89.8 Vaginal irritation on right vulva x 1 week since using MrYosef Armas bubble bath.Will try topical cream.If this does not improve after 10-14 days, will schedule for vulvar bx. Screening mammography 24 832744 Z12.31 [id number] MD Eve Gipson FOUNDRY MOLDER [address] [place] [address] [place] [address] 06/21/2019 08:46:47 06/21/2019 10:44:51 Human papillomavirus deoxyribonucleic acid detected, high risk on cervical specimen 436847834 R87.810 Cervical intraepithelial neoplasia grade 1 737745184 N87.0 Per 2019 LEEP with negative margins.. [...] as definitive therapy. Condyloma acuminata of vagina 216452156 A63.0 . Patient is symptomati c at introitus greater than 1 year without focal lesions being identified until today condyloma changes at 7:00 biospy todaydiffu se skin changes biopsy of 5:00Suspec t condyloma plus or minus dysplastic changes. If mild dysplastic changes would consider for wide excision outpatient here. If high-grade changes will refer for possibly more extensive excision and [place] Cigarette smoker 0685592 7 F17.210 Currently using nicotine patch OTC. Relationsh ip of smoking to poor HPV client reviewed [id number] Maggi Martinez DO [place] FOUNDRY MOLDER [address] [place] [address] [place] [address] 08/10/2019 14:20:27 08/10/2019 15:19:24 Pruritus of vagina 51665674 L29.3 [id number] Radha Miller APRN [place] FOUN[facility] MOLDER [address] [place] [address] [place] [address] 01/10/2020 15:39:19 01/10/2020 17:16:05 Cervical intraepithelial neoplasia grade 1 049500494 N87.0 R87.810 Patient advised that I will follow up with results. Osteoporosis 69555211 M8 1.0 Human omar llomavirus deoxyribonucleic acid detected, high risk on cervical specimen 017662005 R87.810 Cigarette smoker 6884582 7 F17.210 Currently using nicotine patch OTC. Urged to quit. Discussed HPV and smoking. 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 Radha Miller, [address], [place], [address], [place] [facility] 11/02/2018 11:40:32 05/07/2019 text/html [...] is having a scope next month in [employer] . Radha Miller APRN [facility] [address], [place], [address], [place] [facility] 05/07/2019 13:40:58 06/21/2019 text/html Patient is an established patient who presents for follow up onabnormal pap testing . 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 Pertinent prior testing: see below: s/p Cryo of cervix in - 2009 reports pap with Family [facility] loader in 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 Maggi Martinez DO [address], [place], [address], [place] [facility] 08/12/2019 13:02:56 01/10/2020 text/html [...] She is here today for repeat PAP 03/02 after her last colposcopy. Pertinent prior testing: see below: s/p Cryo of cervix in 1990 1997 - 2009 reports pap with Family [facility] loader in [facility] 11/19/10 wnl no hpv testing 02/03/16 wnl [...] Ascus pos HPV 05/07/2019 wnl pos HPV 164/23/20 colpo MARYLOU-I and ELVI-3 on her vulva @ 5 and 7 Radha Miller, [address], [place], [address], [place] - [facility] 01/10/2020 17:09:09 OBGyn Episode No OBEpisode recorded.
--- OUTSIDE RECORDS SUMMARY | 2024-12-14 12:31 | XMS_ITS | Data Portability ---
Author Organization [employer] [facility] Address [address] [place] [address] Assessment Encounter Date Assessment Date Assessment LastModified by Organization Details LastModified Time 11/13/2024 11/13/2024 Luna Foreman, female patient with history of anxiety and IBS, presents with recurrent onset of vertigo that led to syncope, nausea, vomiting, and head injury after falling. Acute Vertigo Assessment: Patient experienced sudden onset of dizziness and syncope while talking to her grandson, resulting in a fall and head injury. Symptoms include vertigo, nausea, and vomiting. Patient reports taking lorazepam the night before and Dramamine without relief. Ear examination revealed clear ear canals and good, equal, reactive pupils. Recent air travel and completion of a prednisone course for back pain noted. Given the sudden onset and associated symptoms, this presentation is consistent with an acute vertigo flare-up. Plan: - Administer Phenergan injection for nausea and vertigo - Prescribe meclizine for vertigo - Take 1 tablet 3 times daily for 3 days - Advise rest in a cool, dark room for the next 12 hours - Recommend hydration - Instruct patient not to drive after Phenergan injection - Follow up in 24 hours if symptoms do not improve Irritable Bowel Syndrome (IBS) Flare-up Assessment: Patient reports increased bowel movements and abdominal swelling. Recent travel, dietary changes, and emotional stress likely contributed to the IBS flare-up. The connection between gut symptoms and emotional state is noted. Plan: - Encourage regular bowel movements - Continue Buspar at home - Refill Protonix Anxiety Assessment: Patient has a history of anxiety and is currently taking citalopram and lorazepam. The recent travel and health issues may have exacerbated anxiety symptoms. Plan: - Continue current anxiety medications - Citalopram - Lorazepam Head Injury Assessment: Patient reports hitting her head on a cradle during the fall. She complains of head pain at the site of impact. No loss of consciousness reported. Neuro exam was WNL. Plan: - Monitor for worsening symptoms or signs of concussion - Follow up if symptoms persist or worsen or proceed to ER. Not available 11/13/2024 18:16:28 11/26/2024 11/26/2024 Luna Foreman presented with persistent vertigo and nausea since last Tuesday, worsening after rising quickly and resulting in a fall with head injury. She reported spinning sensations, motion sensitivity, and ear fullness. Her symptoms initially improved with meclizine before she ran out. Examination showed normal eardrums and no concerning neurological signs. She was diagnosed with vertigo and prescribed meclizine, a steroid pack, Phenergan refill, continued Flonase, and advised to make slow position changes, avoid driving, and seek emergency care if symptoms worsen. Not available 11/26/2024 17:08:55 Plan of Treatment Reminders Order Date Submit Date Provider Last Modified By Organization Details Last Modified Time Details Appointments None recorded. Lab rf (rheumatoid factor), serum 2024 025 [facility], [address] [place] [address], [id number], 5 09:08:15 uric acid, serum or plasma 2024 025 [facility]), [address] [place], [address], 5 09:08:17 CBC w/ auto diff 2024 025 [facility], [address] [place] [address], [address], 5 09:08:13 cobalamin and folate panel, serum 2024 025 [facility], [address] [place] [address], [address], 5 09:08:14 CMP, serum or plasma 2024 025 [facility]), [facility] [place], [address], 5 09:08:14 TSH, ultra-sensi tive, serum 2024 025 [facility]), [address] [place] [address], [address], 5 09:08:16 vitamin D, 25-hydroxy, total, serum 2024 025 [facility]), [address] [place] [address], [address], 5 09:08:16 iron + TIBC + ferritin, serum 2024 025 [facility]), [address] [place], [address], 5 09:08:13 HbA1c (hemoglobin A1c), blood 2024 025 [facility]), [address] [place] [address], [address], 5 09:08:15 rapid flu (A+B) [address], [address], 4 14:56:46 rapid SARS CoV 2 Ag, QL, IA, upper respiratory specimen [address], [address], 4 14:56:46 Referral None recorded. Procedures None recorded. Surgeries None recorded. Imaging None recorded. Medication Orders promethazin e 12.5 mg tablet 2024 025 [facility], [address] [place] [address], [address], 5 15:52:47 meclizine 25 mg tablet 2024 025 [facility], [address] [place] [address], [address], 5 16:35:10 Medrol (Jackson) 4 mg tablets in a dose pack 2024 025 [facility], [address] [place] [address], [address], 5 15:52:46 promethazin e 12.5 mg tablet 2024 025 [facility], [address] [place] [address], [address], 5 16:38:14 meclizine 12.5 mg tablet 2024 025 [facility], [address] [place] [address], [address], 5 05:01:08 promethazin e 25 mg/mL injection solution [address] [facility] Not available 15:00:29 pantoprazol e 40 mg tablet,carlos yed release 2024 025 [facility], [address] [place] [address], [address], 5 16:38:14 Diflucan 150 mg tablet 2024 025 [facility], [address] [place] [address], [address], 5 15:54:29 cyanocobala min (vit B-12) 1,000 mcg/mL injection solution 2024 025 [facility] Not available 15:54:26 promethazin e 12.5 mg tablet 2024 025 [facility], [address] [place] [address], [address], 5 09:51:25 escitalopra m 20 mg tablet 2024 025 [facility], [address] [place] [address], [address], 5 15:08:55 buspirone 10 mg tablet 2024 025 [facility], [address] [place] [address], [address], 5 16:27:43 pantoprazol e 40 mg tablet,carlos yed release 2024 025 [facility], [address] [place] [address], [address], 5 11:32:29 fluconazole 150 mg tablet 2024 025 [facility], [address] [place] [address], [address], 5 15:54:29 azithromyci n 250 mg tablet 2023 024 [facility], [address] [place] [address], [address], 5 13:49:06 albuterol sulfate HFA 90 mcg/actuati on aerosol inhaler 2023 025 [facility], [address] [place] [address], [address], 5 16:17:54 dextrometho rphan-jazminef enesin 10 mg-100 mg/5 mL oral syrup 2023 025 [facility], [address] [place] [address], [address], 5 14:27:04 fluconazole 200 mg tablet 2023 025 [facility], [address] [place] [address], [address], 14:01:23 Patient TargetsNo targets recorded. Patient InstructionsNo instructions recorded. Reason for Referral None Reported. Results Created Date Observation Date Name Description Value Unit Range Abnormal Flag Note LastModifiedBy Organization Detail LastModifiedTime 02/27/20 24 02/27/2024 rapid flu (A+B) Flu A negati ve Not Available [address], [address], 02/27/2024 14:43:03 02/27/20 24 02/27/2024 rapid flu (A+B) Flu B negati ve Not Available [address], [address], 02/27/2024 14:43:03 02/27/20 24 02/27/2024 rapid SARS CoV 2 Ag, QL, IA, upper respi rator y speci men SARS CoV Ag negati ve Not Available [address], [address], 02/27/2024 14:43:07 08/25/19 25 08/25/2024 FE+TI BC+FE R iron bind.cap.(TI BC) 318 ug/dL 250-45 0 normal Not Available [facility] ([facility]) [address] [facility], [place], [address], 08/25/2024 09:08:13 08/25/19 25 08/25/2024 FE+TI BC+FE R UIBC 257 ug/dL 118-36 9 normal Not Available [facility] ([facility]) [address] [place], [address], 08/25/2024 09:08:13 08/25/19 25 08/25/2024 FE+TI BC+FE R iron 61 ug/dL 27-139 normal Not Available [facility] ([facility]) [address] [place], [address], 08/25/2024 09:08:13 08/25/19 25 08/25/2024 FE+TI BC+FE R iron saturation 19 % 15-55 normal Not Available [facility] ([facility]) [address] [place], [address], 08/25/2024 09:08:13 08/25/1908/25/2024 FE+TI BC+FE R ferritin 37 NG/mL 15-150 normal Not Available [facility] ([facility]) [address] [place], [address], 08/25/2024 09:08:13 08/25/1908/25/2024 CBC WITH DIFFE RENTI AL/PL ATELE T WBC 7.6 x10e3 /uL 3.4-10 .8 normal Not Available [facility] ([facility]) [address] [place], [address], 08/25/2024 09:08:13 08/25/1908/25/2024 CBC WITH DIFFE RENTI AL/PL ATELE T RBC 4.22 x10e6 /uL 3.77-5 .28 normal Not Available [facility] ([facility]) [address] [place], [address], 08/25/2024 09:08:13 08/25/19 25 08/25/2024 CBC WITH DIFFE RENTI AL/PL ATELE T hemoglobin 13.3 g/dL 11.1-1 5.9 normal Not Available [facility] ([facility]) [address] [place], [address], 08/25/2024 09:08:13 08/25/1908/25/2024 CBC WITH DIFFE RENTI AL/PL ATELE T hematocrit 42.8 % 34.0-4 6.6 normal Not Available [facility] ([facility]) [address] [place], [address], 08/25/2024 09:08:13 08/25/1908/25/2024 CBC WITH DIFFE RENTI AL/PL ATELE T MCV 101 fL 79-97 above high normal Not Available [facility] ([facility]) [address] [place], [address], 08/25/2024 09:08:13 08/25/1908/25/2024 CBC WITH DIFFE RENTI AL/PL ATELE T MCH 31.5 pg 26.6-3 3.0 normal Not Available [facility] ([facility]) [address] [place], [address], 08/25/2024 09:08:13 08/25/1908/25/2024 CBC WITH DIFFE RENTI AL/PL ATELE T MCHC 31.1 g/dL 31.5-3 5.7 below low normal Not Available [facility] ([facility]) [address] [place], [address], 08/25/2024 09:08:13 08/25/1908/25/2024 CBC WITH DIFFE RENTI AL/PL ATELE T RDW 12.1 % 11.7-1 5.4 Not Available [facility] ([facility]) [address] [place], [address], 08/25/2024 09:08:13 08/25/19 25 08/25/2024 CBC WITH DIFFE RENTI AL/PL ATELE T platelets 234 x10e3 /uL 150-45 0 normal Not Available [facility] ([facility]) [address] [facility], [place], [address], 08/25/2024 09:08:13 08/25/19 25 08/25/2024 CBC WITH DIFFE RENTI AL/PL ATELE T neutrophils 61 % not estab. normal Not Available [facility] ([facility]) [address] [facility], [place], [address], 08/25/2024 09:08:13 08/25/19 25 08/25/2024 CBC WITH DIFFE RENTI AL/PL ATELE T lymphs 30 % not estab. normal Not Available [facility] ([facility]) [address] [facility], [place], [address], 08/25/2024 09:08:13 08/25/19 25 08/25/2024 CBC WITH DIFFE RENTI AL/PL ATELE T monocytes 5 % not estab. normal Not Available [facility] ([facility]) [address] [facility], [place], [address], 08/25/2024 09:08:13 08/25/19 25 08/25/2024 CBC WITH DIFFE RENTI AL/PL ATELE T eos 3 % not estab. normal Not Available [facility] ([facility]) [address] [facility], [place], [address], 08/25/2024 09:08:13 08/25/19 25 08/25/2024 CBC WITH DIFFE RENTI AL/PL ATELE T basos 1 % not estab. normal Not Available [facility] ([facility]) [address] [facility], [place], [address], 08/25/2024 09:08:13 08/25/19 25 08/25/2024 CBC WITH DIFFE RENTI AL/PL ATELE T immature cells [employer] Not Available [facility] ([facility]) [address] [facility], [place], [address], 08/25/2024 09:08:13 08/25/19 25 08/25/2024 CBC WITH DIFFE RENTI AL/PL ATELE T neutrophils (absolute) 4.7 x10e3 /uL 1.4-7. 0 normal Not Available [facility] ([facility]) [address] [facility], [place], [address], 08/25/2024 09:08:13 08/25/1908/25/2024 CBC WITH DIFFE RENTI AL/PL ATELE T lymphs (absolute) 2.3 x10e3 /uL 0.7-3. 1 normal Not Available [facility] ([facility]) [address] [place], [address], 08/25/2024 09:08:13 08/25/1908/25/2024 CBC WITH DIFFE RENTI AL/PL ATELE T monocytes(ab solute) 0.4 x10e3 /uL 0.1-0. 9 normal Not Available [facility] ([facility]) [address] [facility], [place], [address], 08/25/2024 09:08:13 08/25/19 25 08/25/2024 CBC WITH DIFFE RENTI AL/PL ATELE T eos (absolute) 0.2 x10e3 /uL 0.0-0. 4 normal Not Available [facility] ([facility]) [address] [place], [address], 08/25/2024 09:08:13 08/25/1908/25/2024 CBC WITH DIFFE RENTI AL/PL ATELE T baso (absolute) 0.0 x10e3 /uL 0.0-0. 2 normal Not Available [facility] ([facility]) [address] [place], [address], 08/25/2024 09:08:13 08/25/19 25 08/25/2024 CBC WITH DIFFE RENTI AL/PL ATELE T immature granulocytes 0 % not estab. Not Available [facility] ([facility]) [address] [facility], [place], [address], 08/25/2024 09:08:13 08/25/19 25 08/25/2024 CBC WITH DIFFE RENTI AL/PL ATELE T immature grans (abs) 0.0 x10e3 /uL 0.0-0. 1 Not Available [facility] ([facility]) [address] [facility], [place], [address], 08/25/2024 09:08:13 08/25/19 25 08/25/2024 CBC WITH DIFFE RENTI AL/PL ATELE T NRBC [employer] Not Available [facility] ([facility]) [address] [facility], [place], [address], 08/25/2024 09:08:13 08/25/19 25 08/25/2024 CBC WITH DIFFE RENTI AL/PL ATELE T hematology comments: [employer] Not Available [facility] ([facility]) [address] [facility], [place], [address], 08/25/2024 09:08:13 08/25/19 25 08/25/2024 COMP. METAB OLIC PANEL (14) glucose 86 mg/dL 70-99 normal Not Available [facility] ([facility]) [address] [facility], [place], [address], 08/25/2024 09:08:14 08/25/19 25 08/25/2024 COMP. METAB OLIC PANEL (14) BUN 14 mg/dL 8-27 normal Not Available [facility] ([facility]) [address] [facility], [place], [address], 08/25/2024 09:08:14 08/25/19 25 08/25/2024 COMP. METAB OLIC PANEL (14) creatinine 0.95 mg/dL 0.57-1 .00 normal Not Available [facility] ([facility]) [address] [facility], [place], [address], 08/25/2024 09:08:14 08/25/19 25 08/25/2024 COMP. METAB OLIC PANEL (14) eGFR 68 mL/mi n/1.7 3 >59 normal Not Available [facility] ([facility]) [address] [facility], [place], [address], 08/25/2024 09:08:14 08/25/19 25 08/25/2024 COMP. METAB OLIC PANEL (14) BUN/creatini ne ratio 15 12-28 normal Not Available [facility] ([facility]) [address] [facility], [place], [address], 08/25/2024 09:08:14 08/25/19 25 08/25/2024 COMP. METAB OLIC PANEL (14) sodium 141 mmol/ L 134-14 4 normal Not Available [facility] ([facility]) [address] [facility], [place], [address], 08/25/2024 09:08:14 08/25/19 25 08/25/2024 COMP. METAB OLIC PANEL (14) potassium 4.7 mmol/ L 3.5-5. 2 normal Not Available [facility] ([facility]) [address] [facility], [place], [address], 08/25/2024 09:08:14 08/25/19 25 08/25/2024 COMP. METAB OLIC PANEL (14) chloride 102 mmol/ L 96-106 normal Not Available [facility] ([facility]) [address] [facility], [place], [address], 08/25/2024 09:08:14 08/25/19 25 08/25/2024 COMP. METAB OLIC PANEL (14) carbon dioxide, total 23 mmol/ L 20-29 normal Not Available [facility] ([facility]) [address] [facility], [place], [address], 08/25/2024 09:08:14 08/25/19 25 08/25/2024 COMP. METAB OLIC PANEL (14) calcium 9.1 mg/dL 8.7-10 .3 normal Not Available [facility] ([facility]) [address] [facility] [place], [address], 08/25/2024 09:08:14 08/25/19 25 08/25/2024 COMP. METAB OLIC PANEL (14) protein, total 6.8 g/dL 6.0-8. 5 normal Not Available [facility] ([facility]) [address] [place], [address], 08/25/2024 09:08:14 08/25/19 25 08/25/2024 COMP. METAB OLIC PANEL (14) albumin 4.4 g/dL 3.9-4. 9 normal Not Available [facility] ([facility]) [address] [place], [address], 08/25/2024 09:08:14 08/25/19 25 08/25/2024 COMP. METAB OLIC PANEL (14) globulin, total 2.4 g/dL 1.5-4. 5 Not Available [facility] ([facility]) [address] [place], [address], 08/25/2024 09:08:14 08/25/19 25 08/25/2024 COMP. METAB OLIC PANEL (14) bilirubin, total <0.2 mg/dL 0.0-1. 2 Not Available [facility] ([facility]) [address] [place], [address], 08/25/2024 09:08:14 08/25/19 25 08/25/2024 COMP. METAB OLIC PANEL (14) alkaline phosphatase 124 IU/L 44-121 above high normal Not Available [facility] ([facility]) [address] [place], [address], 08/25/2024 09:08:14 08/25/19 25 08/25/2024 COMP. METAB OLIC PANEL (14) AST (SGOT) 15 IU/L 0-40 normal Not Available [facility] ([facility]) [address] [place], [address], 08/25/2024 09:08:14 08/25/19 25 08/25/2024 COMP. METAB OLIC PANEL (14) ALT (SGPT) 12 IU/L 0-32 normal Not Available [facility] ([facility]) [address] [place], [address], 08/25/2024 09:08:14 08/25/19 25 08/25/2024 VITAM IN B12 AND FOLAT E vitamin B12 >2000 pg/mL 232-12 45 above high normal Not Available [facility] ([facility]) [address] [facility], [place], [address], 08/25/2024 09:08:14 08/25/19 25 08/25/2024 VITAM IN B12 AND FOLAT E folate (folic acid), serum 2.6 NG/mL >3.0 below low normal A serum folat e esteban ntrat ion of less than 3.1 ng/mL is consi dered to repre sent clini lillie defic iency . Not Available [facility] ([facility]) [address] [facility], [place], [address], 08/25/2024 09:08:14 08/25/1908/25/2024 HEMOG LOBIN A1C hemoglobin A1C 5.5 % 4.8-5. 6 normal Predi abete s: 5.7 - 6.4 Diabe ritesh: >6.4 Glyce wai contr ol for adult s with diabe ritesh: <7.0 Not Available [facility] ([facility]) [address] [place], [address], 08/25/2024 09:08:15 08/25/1908/25/2024 RHEUM ATOID FACTO R (RF) rheumatoid factor (rf) <10.0 IU/mL <14.0 Not Available [facility] ([facility]) [address] [facility], [place], [address], 08/25/2024 09:08:15 08/25/1908/25/2024 VITAM IN D, 25-HY DROXY vitamin D, 25-hydroxy 38.7 NG/mL 30.0-1 00.0 Vitam in D defic iency has been defin ed by the Insti tute of Medic ine and an Endoc rine Socie ty pract ice guide line as a level of serum 25-OH vitam in D less than 20 ng/mL (1,2) . The Endoc rine Socie ty went on to furth er defin e vitam in D insuf ficie ncy as a level betwe en 21 and 29 ng/mL (2). 1. IOM (Inst itute of Medic ine). 2010. [place] ry refer ence intak es for calci um and D. Amy morales [place]: [facility] . 2. Mckinley arreguin [place], Billie collado [place], Kayli off-F errlola i THACKER, et al. Evalu ation , treat ment, and preve ntion of vitam in D defic iency : an Endoc rine Socie ty clini lillie pract ice guide line. JCEM. 2010; 96(7) :1911 -30. Not Available [facility] ([facility]) [address] [facility], [place], [address], 08/25/2024 09:08:16 08/25/1908/25/2024 TSH RFX ON ABNOR MAL TO FREE T4 TSH 1.910 uIU/m L 0.450- 4.500 normal Not Available [facility] ([facility]) [address] [facility], [place], [address], 08/25/2024 09:08:16 08/25/1908/25/2024 URIC ACID uric acid 3.9 mg/dL 3.0-7. 2 normal Thera peuti c targe t for gout patie nts: <6.0 Not Available [facility] ([facility]) [address] [facility], [place], [address], 08/25/2024 09:08:17 Result Notes None recorded. Problems Name Problem SNOMED Code Status Onset Date Resolution Date Notes Provider Name and Address Organization Details Recorded Time Major depressi on, single episode [id number] Completed 201605/19/2017 Problem Code: F32.9; Problem Code Type: ICD-10; Not Available [facility] 2 22:26:38 Moderate recurren t major depressi on [id number] Completed 201611/26/2018 Problem Code: F33.1; Problem Code Type: ICD-10; Not Available [facility] 2 22:26:38 Lumbosac ral radiculo aiden [id number] Completed 201611/17/2017 Problem Code: M54.16; Problem Code Type: ICD-10; Not Available [facility] 2 22:26:44 Low back pain [id number] Completed 201611/17/2017 Problem Code: 724.2; Problem Code Type: ICD-9; Naya Goodwin, VP [employer] [address] [place] [address], [id number] , [employer] 4 08:40:49 Chronic obstruct mitesh pulmonar y disease [id number] Completed 201607/11/2020 Problem Code: 496; Problem Code Type: ICD-9; Not Available [facility] 2 22:27:12 Influenz a [id number] Completed 201704/08/2017 Problem Code: J10.1; Problem Code Type: ICD-10; MARY dunn, [employer] 2 11:49:03 Influenz a with non-resp iratory manifest ation [id number] Completed 201704/08/2017 Problem Code: 487.8; Problem Code Type: ICD-9; Not Available [facility] 2 22:27:11 Generali zed anxiety disorder 80234303 Completed 201708/17/2017 Problem Code: F41.1; Problem Code Type: ICD-10; Not Available [facility] 2 22:26:38 Gastroes ophageal reflux disease without esophagi tis 093727956 Completed 201711/17/2021 MARY dunn, [employer]. 11:49:03 Gastro-e sophagea l reflux disease with esophagi tis 553887564 Active 2017 Problem Code: K21.0; Problem Code Type: ICD-10; Not Available [facility] 22:27:00 Gastroes ophageal reflux disease 717754943 Completed 201707/11/2020 Problem Code: 530.81; Problem Code Type: ICD-9; Not Available [facility] 22:27:07 Moderate recurren t major depressi on 64951603 Active 2017 Problem Code: F33.1; Problem Code Type: ICD-10; Not Available [facility] 22:26:38 Chronic post-tra umatic stress disorder 900063502 Completed 201708/19/2017 Problem Code: F43.12; Problem Code Type: ICD-10; Not Available [facility] 22:26:38 Post-tra umatic stress disorder 89379340 Active 2017 Problem Code: F43.10; Problem Code Type: ICD-10; Not Available [facility] 22:26:39 Sleep behavior finding 690971951 Completed 201711/17/2017 Not Available [facility] 2 22:26:39 Chronic pain syndrome 614960328 Active 2017 Problem Code: G89.4; Problem Code Type: ICD-10; Not Available [facility] 22:26:39 Sarah chanel ayalayoanna g Completed 201711/17/2017 MARY dunn, [employer]. 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 [id number] Completed 201707/11/2020 Problem Code: 053.12; Problem Code Type: ICD-9; Not Available [facility] 2 22:27:02 Organic sleep disorder 007586720 Completed 201711/17/2017 Problem Code: 327.8; Problem Code Type: ICD-9; Not Available [facility] 2 22:27:06 Asthenia [id number] Completed 201711/17/2017 Problem Code: R53.1; Problem Code Type: ICD-10; Not Available [facility] 2 22:27:08 Malaise and fatigue 071142491 Completed 201711/17/2017 Problem Code: 780.79; Problem Code Type: ICD-9; Not Available [facility] 22:27:09 Hyperlip idemia screenin g Completed 201711/17/2017 Problem Code: V77.91; Problem Code Type: ICD-9; Not Available [facility] 22:27:09 Herpesvi uzma infectio n [id number] Completed 201711/26/2018 Problem Code: A60.09; Problem Code Type: ICD-10; Not Available [facility] 22:26:37 Genital herpes simplex 72481399 Completed 201707/11/2020 Problem Code: 054.19; Problem Code Type: ICD-9; Not Available [facility] [facility] Acute sinusiti s 32199200 Completed 201712/01/2017 Problem Code: J01.90; Problem Code Type: ICD-10; MARY dunn, [employer] 2 11:49:03 Otitis externa 7111212 Completed 201702/14/2018 Problem Code: H60.339; Problem Code Type: ICD-10; Not Available [facility] 22:26:39 Acute sinusiti s 36911325 Completed 201701/02/2018 Problem Code: J01.90; Problem Code Type: ICD-10; MARY CANTOR null, [employer] 2 11:49:03 Nausea and vomiting 25460373 Completed 201702/14/2018 Problem Code: R11.2; Problem Code Type: ICD-10; Not Available [facility] 22:26:48 Acute swimmer' s ear Completed 201702/14/2018 Problem Code: 380.12; Problem Code Type: ICD-9; Not Available [facility] 22:27:04 Nausea 498709455 Completed 201811/26/2018 Problem Code: R11.0; Problem Code Type: ICD-10; Not Available [facility] 22:26:47 Generali zed abdomina l pain 576465791 Completed 201811/26/2018 Problem Code: R10.84; Problem Code Type: ICD-10; Not Available [facility] 22:26:46 Nausea and vomiting 59782815 Completed 201811/26/2018 Problem Code: R11.2; Problem Code Type: ICD-10; Not Available [facility] 22:26:47 Abdomina l bloating 856282776 Completed 201811/17/2021 Problem Code: R14.0; Problem Code Type: ICD-10; MARY dunn, [employer] 11:49:02 Generali zed anxiety disorder 77240575 Active 2018 Problem Code: F41.1; Problem Code Type: ICD-10; Not Available [facility] 22:26:38 Chronic post-tra umatic stress disorder 726927190 Completed 201811/26/2018 Problem Code: F43.12; Problem Code Type: ICD-10; Not Available [facility] 22:26:38 Acute sinusiti s 32919019 Completed 201811/26/2018 Problem Code: J01.90; Problem Code Type: ICD-10; MARY dunn, [employer] 11:49:03 Onycholy sis 24424498 Completed 201811/26/2018 Problem Code: L60.1; Problem Code Type: ICD-10; Not Available [facility] 2 22:26:44 Renal angle tenderne ss 645703578 Completed 201811/17/2021 Problem Code: R10.821; Problem Code Type: ICD-10; MARY CANTOR null, [employer] 2 11:49:02 Dehydrat ion 58439201 Completed 201811/26/2018 Problem Code: E86.0; Problem Code Type: ICD-10; Not Available [facility] 2 22:26:38 Low blood pressure 18225761 Completed 201811/26/2018 Problem Code: I95.9; Problem Code Type: ICD-10; Naya Goodwin, VP [employer] [address] [place] [address], [address] , [employer] 5 15:57:42 Screenin g mammogra phy Completed 201811/26/2018 Problem Code: Z12.31; Problem Code Type: ICD-10; MARY DIAZR null, [employer] 2 11:49:03 Influenz a vaccine needed 40425004930 06 Completed 201811/17/2021 Problem Code: Z23; Problem Code Type: ICD-10; MARY DIAZR null, [employer] 2 11:49:02 Snoring 11400120 Completed 201809/24/2019 Problem Code: R06.83; Problem Code Type: ICD-10; Not Available [facility] 2 22:26:46 Hemorrho ids 31628507 Completed 201809/24/2019 Problem Code: K64.9; Problem Code Type: ICD-10; Not Available [facility] 2 22:26:43 Acute sinusiti s 76625313 Completed 201809/04/2019 Problem Code: J01.90; Problem Code Type: ICD-10; MARY RANDLENEAR null, [employer] 2 11:49:03 General examinat ion of patient Completed 201907/11/2020 MARY CANTOR null, [employer] 2 11:49:03 Body mass index 20-24 - normal 743256876 Active 2019 Not Available [facility] 2 22:26:59 Low blood pressure 93401847 Completed 201911/06/2019 Problem Code: I95.9; Problem Code Type: ICD-10; Naya Goodwin, VP [employer] [address] [place], [address] , [employer] 5 15:57:42 Function al diarrhea 61462617 Completed 201911/06/2019 Problem Code: K59.1; Problem Code Type: ICD-10; Not Available [facility] 2 22:26:42 Influenz a 2713443 Completed 201911/17/2021 Problem Code: J10.1; Problem Code Type: ICD-10; MARY CANTOR null, [employer] 2 11:49:03 Pyrexia of unknown origin 4008958 Completed 201909/04/2019 Problem Code: R50.9; Problem Code Type: ICD-10; MARY CANTOR null, [employer] 2 11:49:03 Nausea 379799004 Completed 201909/04/2019 Problem Code: R11.0; Problem Code Type: ICD-10; Not Available [facility] 2 22:26:47 Acute sinusiti s 81017513 Completed 201909/24/2019 Problem Code: J01.90; Problem Code Type: ICD-10; MARY CANTOR null, [employer] 2 11:49:03 Vitamin D deficien cy 05153416 Active 2019 Problem Code: E55.9; Problem Code Type: ICD-10; Not Available [facility] 2 22:26:38 Dysplasi a of vulva 282242074 Completed 201908/31/2021 Problem Code: N90.3; Problem Code Type: ICD-10; Not Available [facility] 2 22:26:45 Screenin g mammogra phy Completed 201911/06/2019 Problem Code: Z12.31; Problem Code Type: ICD-10; MARY RAZIAELIZABETH null, [employer] 2 11:49:03 Current drug user 652074690 Completed 201911/06/2019 Problem Code: Z79.899; Problem Code Type: ICD-10; Naya Goodwin APRN [address] [place], [address] , [employer] 4 08:41:04 Acute pansinus itis 0539194 Completed 201911/17/2021 Problem Code: J01.41; Problem Code Type: ICD-10; MARY RAZIAJAYESHR null, [employer] 2 11:49:03 Influenz a vaccine needed 72606495935 06 Completed 201912/25/2019 Problem Code: Z23; Problem Code Type: ICD-10; MARY RAZIAELIZABETH null, [employer] 2 11:49:02 Low blood pressure 77298700 Completed 201908/31/2021 Problem Code: I95.9; Problem Code Type: ICD-10; Naya Goodwin APRN [address] [place], [address] , [employer] 5 15:57:42 Acute pansinus itis 4283835 Completed 201903/17/2020 Problem Code: J01.41; Problem Code Type: ICD-10; MARY RAZIAJAYESHR null, [employer] 2 11:49:03 Tobacco dependen ce caused by cigarett es 56460979545 354465 Active 2020 Problem Code: F17.210; Problem Code Type: ICD-10; Not Available [facility] 22:26:38 General examinat ion of patient Completed 202007/11/2020 MARY dunn, [employer]. 11:49:03 Body mass index 20-24 - normal 329538418 Completed 202007/11/2020 Not Available [facility] 22:26:59 Dysuria 71147614 Completed 202011/17/2021 Problem Code: R30.0; Problem Code Type: ICD-10; MRAY CANTOR null, [employer] 11:49:03 Acute sinusiti s 22235559 Completed 202011/17/2021 Problem Code: J01.90; Problem Code Type: ICD-10; MARY CANTOR null, [employer] 11:49:03 Lumbosac ral radiculo aiden 8048949 Active 2020 Problem Code: M54.16; Problem Code Type: ICD-10; Not Available [facility] 22:27:02 Irritabl e bowel syndrome 06139843 Active 2020 Problem Code: K58.2; Problem Code Type: ICD-10; Naya Goodwin, VP [employer] [address] [place] [address], [address] , [employer] 5 16:08:54 Screenin g mammogra phy Completed 202011/17/2021 Problem Code: Z12.31; Problem Code Type: ICD-10; MARY CANTOR null, [employer] 11:49:03 Ingrowin g nail 609393941 Completed 202008/31/2021 Problem Code: L60.0; Problem Code Type: ICD-10; Not Available [facility] 22:26:43 Disorder of upper respirat ory system 335778631 Completed 202011/17/2021 Problem Code: J06.9; Problem Code Type: ICD-10; MARY CANTOR null, [employer] 2 11:49:03 Otogenic otalgia 85133022 Completed 202012/04/2021 LYNDSEY BARTLETT null, [employer] 2 08:50:49 Allergic rhinitis 36928879 Completed 202011/17/2021 Problem Code: J30.9; Problem Code Type: ICD-10; MARY CANTOR null, [employer] 2 11:49:03 Influenz a vaccine needed 41200940346 06 Completed 202008/31/2021 Problem Code: Z23; Problem Code Type: ICD-10; MARY CANTOR null, [employer] 2 11:49:02 Benign paroxysm al position al vertigo or nystagmu s 671354647 Completed 202111/17/2021 MARY CANTOR null, [employer] 2 11:49:03 General examinat ion of patient Completed 202111/17/2021 MARY DIAZR null, [employer] 2 11:49:03 Acute sinusiti s 96484206 Completed 202108/31/2021 Problem Code: J01.90; Problem Code Type: ICD-10; MARY DIAZR null, [employer] 2 11:49:03 Dizzines s and giddines s 944406064 Completed 202108/31/2021 Problem Code: R42; Problem Code Type: ICD-10; MARY DIAZR null, [employer] 2 11:49:03 Headache 66881905 Completed 202111/17/2021 Problem Code: R51; Problem Code Type: ICD-10; MARY RANDLENEAR null, [employer] 11:49:03 Chronic fatigue syndrome 90224246 Completed 202108/31/2021 Problem Code: R53.82; Problem Code Type: ICD-10; Not Available [facility] 22:26:51 Exposure to SARS-CoV -2 Completed 202111/17/2021 Problem Code: Z20.822; Problem Code Type: ICD-10; MARY RANDLENEAR null, [employer] 11:49:03 Dizzines s and giddines s 671295991 Completed 202111/17/2021 Problem Code: R42; Problem Code Type: ICD-10; MARY RAZIANEAR null, [employer] 11:49:03 Acute non-supp urative serous otitis media 677873154 Completed 202111/17/2021 Problem Code: H65.01; Problem Code Type: ICD-10; MARY RAZIANEAR null, [employer] 11:49:03 Influenz a 7007053 Completed 202108/31/2021 Problem Code: J10.1; Problem Code Type: ICD-10; MARY RAZIANEAR null, [employer] 11:49:03 Choleste rol screenin g Completed 202108/31/2021 MARY RAZIANEAR null, [employer] 2 11:49:36 Low blood pressure 42669455 Completed 202108/31/2021 Problem Code: I95.9; Problem Code Type: ICD-10; Naya Goodwin APRN [address] [place], [address] , [employer] 5 15:57:42 Pyrexia of unknown origin 9795105 Completed 202111/17/2021 Problem Code: R50.9; Problem Code Type: ICD-10; MARY MYNEAR null, [employer] 2 11:49:03 Tick-bor ne relapsin g fever 97230797 Completed 202111/17/2021 Problem Code: A68.1; Problem Code Type: ICD-10; MARY dunn, [employer] 2 11:49:02 Candidia sis of vagina 32132507 Active 2024 Naya Goodwin APRN [address] [place] [address], [address] [place] [address] , [employer] 5 10:26:24 Cobalami n deficien cy 796458987 Active 2024 Naya Goodwin APRN [address] [place] [address], [address] [place] [address] , [employer] 5 10:28:44 Vertigo 667435966 Active 2024 Naya Goodwin APRN [address] [place] [address], [address] [place] [address] , [employer] 5 16:08:45 Problem Notes None recorded. Procedures Surgical History Date Name Laterality Status Provider Name and Address Organization Details Recorded Time 11/01/19 24 Most Recent Mammogram completed MARY [employer] 12/12/2023 11:29:34 09/29/19 23 Date of Last Pap Smear completed MARYLILIAM CANTOR [employer] 04/04/2023 14:50:35 04/05/19 23 Suture/Staple removal completed Naya Goodwin APRN [address] [place], [address], [employer] 04/05/2022 09:45:46 03/25/19 21 Tlh uterus 250 g or less completed Not Available [facility] 11/03/2021 22:56:26 06/07/19 19 cholecystectomy completed Not Available [facility] 11/03/2021 22:56:26 Hysterectomy completed [employer] 11/17/2021 11:54:15 Appendectomy completed MARY DIAZAlexi [employer] 11/17/2021 11:54:25 Imaging Results None recorded. Procedure Notes None recorded. Medical Equipment None Reported. Allergies Allergen ID Allergen Name Allergen Category Reaction Reaction Severity Criticality Documentation Date Start Date Code Code System Note Provider Name and Address Organization Details Recorded Time 24642 Product containin g penicilli n (product) medicatio n Not available Not available Not available 11/03/2021 53279 8001 SNOMED LYNDSEY BARTLETT mona [email or web address]. 08:48:34 40352 sulfameth oxazole medicatio n Not available Not available Not available 11/03/2021 47936 RxNorm Not Available [facility] 22:57:14 64589 Chantix medicatio n Not available Not available Not available 11/03/2021 23860 0 RxNorm Not Available [facility] 22:57:14 Medications Name Sig Start Date Stop Date Status Note LastModified by Organization Details LastModified Time cyclobenzap rine 10 mg tablet Take 1 tablet(s) by mouth tid as needed 03/25 completed Not Available Not Available Not Available fluconazole 100 mg tablet TAKE 1 TABLET EVERY DAY BY ORAL ROUTE while taking antibioit ics 11/13 completed Not Available Not Available Not Available methocarbam ol 500 mg tablet 11/13 completed Not Available Not Available Not Available Bromfed [...] Not Available fluconazole 150 mg tablet TAKE 1 TABLET BY MOUTH EVERY WEEK active Not Available Not Available No t [...] Available promethazin e 12.5 mg tablet TAKE 1 TABLET BY MOUTH every 8 hours NEEDED FOR NAUSEA active Not Available Not [...] TAKE ONE TABLET BY MOUTH EVERY DAY 11/13 completed Not Available Not Available Not Available [...] completed Not Available Not Available Not Available meclizine 12.5 mg tablet Take 1 tablet 3 times a day by oral route for 3 days, for vertigo. 11/23 completed Not Available Not Available Not Available metronidazo le 500 mg tablet Take 1 tablet every 8 hours by oral route with meals for 7 days. 12/04 completed Not Available Not Available Not Available dextrometho jamie-kirstin enesin 10 mg-100 mg/5 mL oral syrup [...] po q 12 hours prn severe pain 11/13 completed Not Available Not Available Not Available ketorolac 30 mg/mL (1 mL) injection [...] completed Not Available Not Available Not Available meclizine 25 mg tablet TAKE 1 TABLET BY MOUTH 3 TIMES DAILY FOR vertigo active Not Available Not Available No t Available phenazopyri dine 100 mg tablet Take [...] e 40 mg tablet,carlos yed release TAKE 1 TABLET BY MOUTH DAILY active Not Available Not Available No t Available cyanocobala min (vit B-12) 1,000 mcg/mL injection solution Inject 1 mL every month by subcutane ous route. 11/13 completed Not Available Not Available Not Available nitrofurant oin macrocrysta l 100 mg [...] promethazin e 25 mg/mL injection solution Take 0.5 mL by injection route. 11/26 completed Not Available Not Available Not Available promethazin e 25 mg tablet one tablet every 8 hours as needed for N/V 08/13 completed Not Available Not Available Not Available ibuprofen 400 mg tablet 11/13 completed Not Available Not Available Not Available betamethaso [...] active Not Available Not Available Not Available methylpredn isolone 4 mg tablets in a dose pack take BY MOUTH as directed PER package instructi ons active Not Available Not Available No t Available albuterol sulfate HFA 90 mcg/actuati on aerosol inhaler Inhale 2 puffs every 4 hours by inhalatio n route. 11/13 completed Not Available Not Available Not Available Colestid 1 gram tablet take 1 [...] Available Not Available oxycodone 5 mg tablet 11/13 completed Not Available Not Available Not Available neomycin-po lymyxin-hyd rocort 3.5 mg-10,000 unit/mL-1 [...] Updated DateTime 5 157.48 cm 23.5 kg/m2 91883.2 6 g 98 [degF] 100 /min 94 % 94 % 83/47 mm[Hg] MARY CANTOR [facility] 5 13:48:40 Date Recorded Body height Body mass index (BMI) Body weight Body temperature Heart rate Oxygen saturation Oxygen saturation in Arterial blood by Pulse oximetry Systolic And Diastolic Provider Name and Address Organization Details Last Updated DateTime 5 157.48 cm 23.2 kg/m2 48696.2 3 g 98 [degF] 102 /min 94 % 94 % 90/59 mm[Hg] MARY CANTOR [employer] 5 10:13:50 Date Recorded Body height Body mass index (BMI) Body weight Body temperature Heart rate Oxygen saturation Oxygen saturation in Arterial blood by Pulse oximetry Systolic And Diastolic Provider Name and Address Organization Details Last Updated DateTime 5 157.48 cm 23.7 kg/m2 70445.5 7 g 99 [degF] 81 /min 95 % 95 % 122/75 mm[Hg] MARY CANTOR [employer] 5 15:51:18 Date Recorded Body height Body mass index (BMI) Body weight Body temperature Heart rate Oxygen saturation Oxygen saturation in Arterial blood by Pulse oximetry Systolic And Diastolic Provider Name and Address Organization Details Last Updated DateTime 5 157.48 cm 24 kg/m2 95347.6 g 98.4 [degF] 113 /min 96 % 96 % 112/73 mm[Hg] MARY CANTOR [employer] 5 15:09:15 Date Recorded Body height Body mass index (BMI) Body weight Body temperature Heart rate Oxygen saturation Oxygen saturation in Arterial blood by Pulse oximetry Systolic And Diastolic Provider Name and Address Organization Details Last Updated DateTime 4 157.48 cm 22.4 kg/m2 55839.6 7 g 98.1 [degF] 88 /min 94 % 94 % 115/70 mm[Hg] Lorna Valentine [employer]. 4 14:42:02 Social History Question Answer Notes LastModified by Organizat ion Details LastModified Time Tobacco Smoking Status Former Smoker LYNDSEY dunn [employer]. 12/04/2021 08:51:44 Do You Have An Advance [...] Or The Highest Degree You Have Received? [id number] Information not available 11/17/2021 When Did You Quit Smoking? 1-5yearssinc elastcigaret te Information not available 11/17/2021 Are There Any Guns Present In Your Home? No Information not available 11/17/2021 Do You Have A Medical Power Of Cosmetology Professor? No Information not available 11/17/2021 What Was The Date Of Your Most Recent Tobacco Screening? 11/26/2024 Information not available 11/26/2024 What Is Your Current Pack Years? 30ormorepack [...] not available 11/17/2021 Are you able to walk independently without assistance or assistive devices? YESWOREST Information not available 11/17/2021 Do you have difficulty doing errands alone? No Information not available 11/17/2021 Are you able to care for yourself independently? Yes Information not available 11/17/2021 Do you have difficulty dressing, bathing, grooming, or toileting? No Information not available 11/17/2021 Mental Status Question Answer Note LastModified by Organizat ion Details LastModified Time Do you feel stressed (tense, restless, nervous, or anxious, or unable to sleep at night)? [id number] Information not available 02/27/2024 Do you have difficulty concentrating, remembering or making decisions? No Information no t available 11/17/2021 Family History Relationship Description Onset Age of this Age Resolved Age Notes LastModified by Organization Details LastModified Time Father No current problems or disability [email or web address] Not available 09:44:05 Mother No current problems or disability [email or web address] Not available 09:44:05 Medical History Condition Response [...] virus, quadrivalent, PF 3 completed Allegra Stephens, VP [employer] [address] [place] [address], [address], [employer] 12/03/2022 10:26:06 COVID-19, mRNA, LNP-S, PF, 100 mcg/0.5mL dose or 50 mcg/0.25mL dose 1 completed MARY dunn, [employer] 04/05/2022 09:07:25 COVID-19, mRNA, LNP-S, PF, 100 mcg/0.5mL dose or 50 mcg/0.25mL dose 1 completed MARY dunn, [employer] 04/05/2022 09:07:25 Influenza, split virus, quadrivalent, preservative 8 completed Not Available [facility] 11/03/2021 22:57:21 Influenza, split virus, quadrivalent, PF 1 completed Not Available [facility] 11/03/2021 22:57:21 Influenza, split virus, quadrivalent, PF 0 completed Not Available [facility] 11/03/2021 22:57:22 Influenza, split virus, trivalent, preservative 7 completed Not Available [facility] 04/04/2023 14:24:12 Influenza, split virus, trivalent, preservative 9 completed Not Available [facility] 04/04/2023 14:24:12 Hep A, adult 8 completed Not Available [facility] 11/03/2021 22:57:23 Hep A, adult 9 completed Not Available [facility] 11/03/2021 22:57:23 COVID-19, mRNA, LNP-S, PF, caprice-sucrose, 30 mcg/0.3 mL 4 completed Gabrielle Butler null, [employer] 01/27/2024 16:27:56 Influenza, split virus, trivalent, PF 4 completed Naya Goodwin APRN [address] [place] [address], [address], [employer] 12/12/2023 12:03:17 Influenza, split virus, quadrivalent, preservative 9 completed MARY MYNEAR null, [employer] 04/05/2022 09:07:25 Influenza, split virus, quadrivalent, preservative 6 completed MARY MYNEAR null, [employer] 04/05/2022 09:07:25 Influenza, MDCK, quadrivalent, PF 2 completed MARY MYNEAR null, [employer] 04/05/2022 09:07:25 COVID-19, mRNA, LNP-S, PF, 100 mcg/0.5mL dose or 50 mcg/0.25mL dose 2 completed MARY MYNEAR null, [employer] 04/05/2022 09:07:25 COVID-19, mRNA, LNP-S, PF, 100 mcg/0.5mL dose or 50 mcg/0.25mL dose 1 completed MARY MYNEAR null, [employer] 04/05/2022 09:07:25 Past Encounters Encounter ID Performer Location Encounter Start Date Encounter Closed Date Diagnosis/Indication Diagnosis SNOMED-CT Code Diagnosis ICD10 Code Diagnosis IMO Codes Diagnosis Note [id number] Naya Goodwin APRN [address] [address] 11/17/2021 10:56:02 11/17/2021 12:15:42 Abdominal pain 96985685 R10.32 Patient presents with a 4 day [...] breathing or any new/concer anna marie symptoms. [id number] [place] [address] 12/02/2021 10:17:04 12/02/2021 10:49:32 Colitis 51000280 K52.9 Promethazi ne shot given and documented in order group note 12/02/2021 [id number] Naya Goodwin [place] [address] 0 12/04/2021 08:45:10 12/04/2021 09:35:17 Indeterminate colitis 401746258 K52.3 [id number] Radha Morris [place] [address] 0 12/09/2021 10:49:36 12/10/2021 10:37:42 COVID-19 912744463 U07.1 [id number] Naya Goodwin [place] [address] 0 12/21/2021 10:37:19 12/21/2021 11:29:35 COVID-19 859117207 U07.1 Inst on dehydratio n and oral fluid replacemen t inst given and explained to pt. Inst fatigue could last 4-6 weeks post covid. Mild dehydration 4028849 119 108 E86.0 Drink 1 liter gatorade today [id number] [place] [address] 01/08/2022 09:44:32 01/08/2022 10:18:22 Chronic pain syndrome 716835706 G89.4 Continue current medication s Candidiasis of vagina 72 035094 B37.31 Instructed her that if vaginitis did not improve, she should follow-up with her CERTIFIED PROSTHETIST/ORTHOTIST at . Generalize d anxiety disorder 71152228 F41.1 Irritable bowel syndrome 88781869 A09 [id number] [place] [address] 04/05/2022 08:48:47 04/05/2022 09:48:08 Postoperative visit 927444408 Z09 Keep f/up appt with . Advised to avoid sexual activity for another 2-4 weeks. Monitor for vaginal d/c, bleeding or pain. Generalize d anxiety disorder 52446478 F41.1 [id number] [place] [address] 05/03/2022 15:37:05 05/03/2022 16:18:40 Chronic pain syndrome 440597686 G89.4 Continue current medication s Nausea and vomiting 1693 2000 R11.2 Continue IBS FODMAP diet. Gastroesop hageal reflux disease without esophagitis 291850578 K21.9 [id number] [place] [address] 07/28/2022 14:19:11 07/28/2022 15:20:34 Irritable bowel syndrome with diarrhea 075174990 K58.0 Add famotidine , restart course of xifaxin. Discussed with her restarting FODMAP diet, avoid caffeinate d and carbonated beverages. Probiotic over-the-c ounter daily. [id number] [place] [address] 08/13/2022 09:44:05 08/13/2022 10:51:10 Chronic post-traumatic stress disorder 774894133 F43.12 Needs appt with [employer]. HI packet given. No med changes were made today. I spent approximat francisco 1 hour discussing coping measures with her. [id number] Naya Goodwin [place] [address] 0 09/06/2022 11:29:11 09/06/2022 12:03:34 Subacute and chronic vaginitis 757400288 N76.1 Obtain Sureswab. Concern that this is not vaginal candidiasi s, but rather a bacterial vaginosis or sexually transmitte d infection. Will await results of sure swab. Irritable bowel syndrome with diarrhea 731306915 K58.0 Refill phenergan for prn use. [id number] Naya Goodwin [place] [address] 0 09/15/2022 09:33:05 09/15/2022 11:36:18 Cough 29810029 R05.9 Acute sinusitis 16554855 J01.90 Patient likely has an acute bacterial [...] Follow-up as below. Seasonal a llergic rhinitis 302689292 J30.2 [id number] Allegra Stephens [place] [address] 0 12/03/2022 09:24:43 12/03/2022 10:01:52 Administration of influenza vaccine 94598809 Z23 Dysuria 87195127 R30.0 Acute urin mayi tract infection 702249126 N39.0 Body mass index 20-24 - normal 276591171 Z68.24 [id number] Naya Goodwin [place] [address] 0 12/21/2022 11:27:37 12/21/2022 11:53:07 Long-term drug therapy 839173948 Z79.899 Recurrent urinary tract infection 847228126 N39.0 Recheck UA and culture today due to continued sx after antx completion . Generalize d anxiety disorder 80284164 F41.1 Chronic pain syndrome 37 5415820 G89.4 Continue current medication s [id number] Naya Goodwin [place] [address] 0 03/16/2023 09:00:02 03/16/2023 11:14:13 Acute urinary tract infection 537734290 N39.0 Active or passive immunization [id number] Z23 [id number] TANIYA BLANC, [place] [address] 0 03/31/2023 09:28:53 03/31/2023 10:12:40 Dysuria 18354599 R30.0 Acute urin mayi tract infection 090226994 N39.0 [id number] Naya Goodwin [place] [address] 0 04/04/2023 14:17:27 04/04/2023 15:40:57 Recurrent urinary tract infection 561857622 N39.0 Recurrent UTI in patient with hx of vulvar cancer (treated at ) 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 Needs Urology consult with cyctoscopy due to continued UTI over past 6 months with persistent dysuria. Complete the cefdinir. [id number] Naya Goodwin [place] [address] 0 05/06/2023 14:29:03 05/06/2023 15:23:46 Dysuria 25118815 R30.0 Will hold antx pending culture. Continue the diflucan and vaginal estradiol. [id number] Naya Goodwin [place] [address] 0 05/31/2023 08:35:34 05/31/2023 09:32:14 Dysuria 83046238 R30.0 Will hold antx pending culture. Continue the diflucan and vaginal estradiol. F/up with CERTIFIED PROSTHETIST/ORTHOTIST and Urology feliberto they have directed her. Degenerati on of lumbar intervertebral disc 16460789 M51.36 Keep appt with [facility] at [facility] as scheduled. [id number] Naya Goodwin [place] [address] 0 06/06/2023 09:33:33 06/06/2023 10:27:35 Acute urinary tract infection 913316299 N39.0 Start Probioitic , continue macrobid,. Follow up with CERTIFIED PROSTHETIST/ORTHOTIST @ this week as directed. [id number] Naya Goodwin, [place] [address] 0 07/01/2023 10:35:29 07/01/2023 11:27:28 Irritable bowel syndrome 59074222 A09 Continue buspar, lorazepam, and protonix with probioitic daily. [id number] Allegra Angelo [place] [address] 0 08/26/2023 11:32:11 08/26/2023 12:12:43 Low back pain 386592129 M54.50 Fatigue 67773428 R53.83 Hyperlipidemia 31648107 E78.5 Vitamin D deficiency 347 03916 E55.9 Candidiasis of vagina 72 459499 B37.31 Dysthymia 31629609 F34.1 Unintentio nal weight loss 452315182 R63.4 Body mass index 20-24 - normal 866209858 Z68.24 [id number] Naya Goodwin, [place] [address] 0 09/14/2023 08:07:25 09/14/2023 09:04:04 Adult health examination 179136287 Z00.00 BSE reviewed and recommende d . Reviewed calcium needs, exercise, and prevention of osteoporos is . Periodic colonoscop y screening recommende d . Reviewed normal menopause and menopausal symptoms . Mammogram recommende d yearly . Moderate r ecurrent major depression 83307961 F33.1 Increase Lexapro Gastroesop hageal reflux disease without esophagitis 481901253 K21.9 Continue PPI. Irritable bowel syndrome 43228870 A09 Continue buspar, lorazepam, and protonix with probioitic daily. Screening mammography of bilateral breasts 7461021391 56172 Z12.31 [id number] [place] [address] 0 12/12/2023 11:03:04 12/12/2023 11:57:18 Administration of influenza vaccine 48853109 Z23 Moderate r ecurrent major depression 20952849 F33.1 Continue Buspar and Lexapro. Low blood pressure 57363 003 I95.9 Advised on slow position changes and increasing oral hydration. I suspect her hypotensio n is due to opiod use as she denies fluid losses. Body mass index 20-24 - normal 947862108 Z68.21 Gastroesop hageal reflux disease without esophagitis 983308789 K21.9 Continue PPI. [id number] [place] [address] 0 02/27/2024 14:25:06 02/27/2024 15:38:04 Fever 374000852 R50.9 Acute bronchitis 1651881 2 J20.9 Cough The patient presents wet cough. The patient's condition is worsening. Based on the findings today we will begin medication therapy. Reviewed symptomati c care instructio ns, the expected course of these illnesses and explained that coughing can persist for some time. Provided precaution s for signs of worsening disease and instructio ns on contacting us if symptoms worsen. [id number] [place] [address] 0 04/03/2024 13:29:37 04/03/2024 15:13:33 Moderate recurrent major depression 42139301 F33.1 Continue Buspar and Lexapro. Candidiasis of vagina 72 900234 B37.31 Irritable bowel syndrome 00671535 A09 Continue buspar, lorazepam, and protonix with probioitic daily. Gastroesop hageal reflux disease without esophagitis 950933971 K21.9 Continue PPI. Body mass index 20-24 - normal 398353062 Z68.21 [id number] [place] [address] 08/24/2024 10:02:51 08/24/2024 10:34:21 Low blood pressure 53062850 I95.9 6007936152 Advised on slow position changes and increasing oral hydration. I suspect her hypotensio n is due to opiod use as she denies fluid losses. Fatigue 20531885 R53.83 00211881 Healthy diet, MVI daily, adequate rest, and labs today. Candidiasis of vagina 72 558897 B37.31 027234 Pain of joint 51701787 M 25.50 5555613093 Cobalamin deficiency 190 068287 E53.8 30270 [id number] [place] [address] 0 11/13/2024 15:34:18 11/14/2024 08:52:35 Vertigo 281026899 R42 95269907 Irritable bowel syndrome 27964646 K58.9 57009528 Continue buspar, lorazepam, and protonix with probioitic daily. Gastroesop hageal reflux disease without esophagitis 084026612 K21.9 Continue PPI. [id number] [place] [address] 11/26/2024 14:30:18 11/26/2024 15:38:16 Vertigo 640364634 R42 82612547 Health Concerns Section Related Observation LastModified by Organization Detai ls LastModified Time None Recorded Concern Status LastModified by Organization Details LastModified Time None Recorded Advance Directives Directive N: Payers Insurance Date Sequence Insurance Name Policy Number Policy Rhodes Covered Member ID Rhodes Member ID Guarantor Name 2024 1 [place]MEDICARE REPLACEMENT HMO) [id number] Luna Foreman [id number] Luna Foreman 11/10/2024 [place] [employer]id [facility] Luna Foreman [id number] Luna Foreman 11/17/2021 1 *SELF PAY* Chantell jasso Kellen Notes Date Note Type Note Provider Name and Address Organization Details Recorded Time 4 text/html Upper Respiratory SymptomsReported by PatientUpper [...] chronic yeast vaginitis Naya Goodwin APRN [address] [place], [address], [facility] [employer], [email or web address]. 02/27/2024 15:18:03 5 text/html Anxiety/DepressionReported by PatientHPIFor [...] intermittent yeast vaginitis. Naya Goodwin APRN [address] [facility], [address], [employer] 04/29/2024 21:45:06 5 text/html FatigueReported by PatientHPIFor [...] he of Vit B deficiency. Naya Goodwin, VP TALENT MANAGEMENT [address] [place], [address], [employer] 08/26/2024 15:35:43 5 text/html ROS as noted in the HPI Chief ComplaintHistory of Present IllnessLuna Foreman presents with acute onset of dizziness, vertigo, and nausea that began yesterday evening around 5:30 PM. The patient reports she was talking to her grandson when she started feeling sick. Upon standing to go inside, she experienced a blackout episode, potentially losing consciousness, and hit her head on a cradle. She subsequently vomited twice in the evening.The dizziness has persisted, causing significant discomfort. Ms. Foreman describes it as vertigo-like and mentions that severe dizziness exacerbates her nausea. She has not taken her usual pain medication today due to the dizziness. Dramamine, taken this morning and afternoon, has not provided relief. The patient also reports recent changes in her bowel movements, with small amounts of stool passed last night and today.Ms. Foreman recently completed a 5-day course of prednisone for back pain, prescribed by a specialist. She has also recently traveled by air but doesn't believe it contributed to her current symptoms, stating she felt fine after returning. However, she acknowledges overexerting herself yesterday. The patient reports her abdomen has swelled up unreal and she has a headache where she hit her head during the fall.Regarding medication adherence, Ms. Foreman has been taking her prescribed citalopram and buspar, though she didn't take the latter today. She took lorazepam last night as usual. She ran out of Protonix yesterday and hasn't taken any phenergan for nausea, unsure if she should. The patient denies experiencing chest pain, palpitations, or urinary symptoms.Medical History- Vertigo (pre-existing condition)- Irritable Bowel Syndrome (IBS)- Anxiety disorder- Gastroesophageal reflux disease (GERD)Medications and Supplements- Lorazepam- Taken last night- Prednisone- Taken for 5 days for back pain- Recently finished- Dramamine- Taken this morning and afternoon- Not helping with dizziness- Citalopram- Buspar- Not taken today- Protonix- For stomach- Ran out yesterday- Phenergan- Has one or two left at home- Didn't take because unsure if shouldSocial History- Travel: Recent air travel- Stress: Experiencing emotional stress. Naya Goodwin, NATALIE [address] [facility], [place], [address], [facility] [employer], [email or web address]. 11/13/2024 18:17:44 5 text/html ROS as noted in the HPI Chief ComplaintPersistent vertigo and nausea since last Tuesday, worsening after getting up too quick History of Present IllnessLuna Foreman presents with persistent vertigo and nausea that began after a recent trip. The patient reports feeling dizzy and nauseous, particularly when riding in a car, and describes a sensation of spinning. She notes that this episode of vertigo has lasted longer than previous experiences.The vertigo symptoms worsened last Tuesday when she got up quickly in response to a family member calling for her assistance. This rapid movement led to increased dizziness and a subsequent fall, resulting in a head injury. The patient denies vomiting but confirms ongoing nausea. She also reports a feeling of fullness in one ear, which she states is a chronic sensation.The patient was previously prescribed meclizine, which she reports provided some relief. However, she has since run out of the medication, having only received 9 pills. She denies any associated symptoms such as palpitations, chest pain, or shortness of breath. The vertigo is significantly impacting her daily functioning, as she expresses fear of driving and states she can't keep going like this. Naya Goodwin, NATALIE [address] [facility], [place], [address], [facility] [employer], [facility]. 11/26/2024 17:09:13 OBGyn Episode No OBEpisode recorded.
--- OUTSIDE RECORDS SUMMARY | 2024-12-14 12:31 | XMS_ITS | Encounter Summary ---
Author Organization [facility] Address [address] [place] [address] Care Team Providers Care Head Of Partner Development Name Role Phone Naya Goodwin WILDLIFE CONSERVATION OFFICER Primary Care Provider [phone] Chelsey Mascorro Unavailable Yong Mata MD Unavailable Malena Burton APRN Unavailable [phone] Encounter Details Date Type Department Care Team (Late st Contact Info) Description 10/01/2024 Lab Requisition [facility] [address] [place] [id number] Ara Byrnes MD [address] [place] [address] Unspecified general medical examination Social [...] [address] [place] [address] Nevaeh Harrison, WILDLIFE CONSERVATION OFFICER [address] [facility] [address] [place] [address] 03/06/2025 1:00 PM EST Clinical Support [facility] Laboratory Services [address], 1st [place] [address] 03/20/2025 11:20 AM EST Pharmacist Visit [facility] Min[facility] Met[facility] [address], [address] [place] [address] Neil Saldana, PharmD [address] [place] [address] 03/27/2025 1:00 PM EST Office Visit [facility] [address], [address]nd [place] [address] Malena Burton, WILDLIFE CONSERVATION OFFICER [address] [place] [address] 04/25/2025 1:30 PM EST Office Visit Medical Office Building [facility] [address], [address] [place] [address] Arnav Ibarra MD [address] [facility] [address] [place] [address] documented as of this encounter Procedures Procedure Name Priority Date/Time Associated Diagnosis Comments SOURCE, BBFE HIV AB/AG W/REFLEX TO HIV [...] Reactive Non Reactive 10/01/2024 11:30 AM EDT [facility] Comment:Screening for HIV 1 & 2 antibodies, and P24 antigen is NONREACTIVE. No confirmatory testing is required. Blood Venous blood specimen / Unknown 10/01/2024 9:42 AM EDT 10/01/2024 10:12 AM EDT us Ara Byrnes MD LAB BLOOD ORDERABLES Final Re sult [facility] [address] [place] [address] * Source, BBFE HCV Quant PCR (10/01/2024 9:42 AM EDT) Pathologist [facility] Hepatitis C Virus (HCV) Quantitative Interpretation Not Detected Not Detected. 10/03/2024 2:38 PM EDT [facility] Blood Venous blood specimen / Unknown 10/01/2024 9:42 AM EDT 10/01/2024 10:12 AM EDT Narrative [facility] - 10/03/2024 2:38 PM EDT The [facility] M2000 HCV test is a Real Time [...] ORDERABLES Final Re sult Performing Organization Address City/[facility]/ZIP [place] [address] * Source, BBFE Hepatitis B S AG (10/01/2024 9:42 AM EDT) [facility] Hepatitis B Surf Antigen Negative Negative 10/01/2024 11:30 AM EDT [facility] Blood Venous blood specimen / Unknown 10/01/2024 9:42 AM EDT 10/01/2024 10:12 AM EDT Ara Byrnes MD LAB BLOOD ORDERABLES Final Re sult [facility] [address] [place] [address] documented in this encounter Visit Diagnoses Diagnosis [...] documented as of this encounter Care Teams Head Of Partner Development Relationship Specialty Start Date End Date Naya Goodwin APRN Pending sale to [facility] [place] [address] PCP - General 07/11/20 Chelsey Mascorro [address] [place] [address] [address] [facility] [place] [address] Referring Physician Gynecology 01/19/21 Yong Mata MD [facility] [place] [address] [place] [address] Surgeon Pain Medicine 05/12/21 Malena Burton APRN [address] [place] [id number] [place] [address] Nurse Practitioner Urology 06/09/23 documented as of this encounter
--- OUTSIDE RECORDS SUMMARY | 2024-12-14 12:31 | XMS_ITS | Encounter Summary ---
Author Organization [facility] Address [address] [place] [address] Care Team Providers Care Varying Exceptionalities Teacher Name Role Phone Naya Goodwin BULL CHAIN OPERATOR Primary Care Provider [phone] Chelsey Mascorro Unavailable Yong Mata MD Unavailable Malena Burton APRN Unavailable [phone] Encounter Details Date Type Department Care Team (Late st Contact Info) Description 10/23/2024 Telephone [facility] [address] [facility], [address] [place] [address] Neil Saldana, PharmD [address] [facility] [address] [place] [address] Social History Tobacco Use Types [...] as of this encounter Miscellaneous Notes * Addendum Note - Neil Saldana PharmD - 11/08/2024 10:46 AM EDTAddended by: NEIL SALDANA on: 11/08/2024 10:46 AM Modules accepted: Orders * Clinician Note - Neil Saldana PharmD - 11/08/2024 10:46 AM EDT Called patient to discuss post-Prolia labs. Patient has not answered after 3 attempts. A voicemail(s) was left. Will sign off at this time and have patient follow up with provider as scheduled. Neil Saldana PharmD, RANJIT Clinical Pharmacist Nephrology, [facility] [address] [place] [address] * Clinician Note - Neil Saldana PharmD - 10/23/2024 1:07 PM EDT Patient returned call to clinic today. She reports Prolia was administered ~1 month ago. However, she did not know exact date. She is agreeable to go to [facility] to collect labs over the next week. I have faxed orders to [facility] F: [phone]. Will follow up once results return. Will also need to confirm administration date with facility. Patient expressed understanding of plan outlined above, encouraged to call clinic with any questions or concerns. Neil Saldana PharmD, BCACP Clinical Pharmacist Nephrology, [facility] [address] [place] [address] documented in this encounter Plan of Treatment Upcoming Encounters Date Type Department Care Team (Late st Contact Info) Description 12/25/2024 2:30 PM EDT Office Visit [facility] [address] [place] [address] Nevaeh Harrison S, BULL CHAIN OPERATOR [address] [facility] [address] [place] [address] 03/06/2025 1:00 PM EST Clinical Support [facility] Laboratory Services [address] [facility], 1st [place] [address] 03/20/2025 11:20 AM EST Pharmacist Visit [facility] [address] [facility], [address] [place] [address] Neil Saldana, PharmD [address] [facility] [address] [place] [address] 03/27/2025 1:00 PM EST Office Visit [facility] [address], [address] [place] [address] Malena Burton, BULL CHAIN OPERATOR [address] [place] [address] 04/25/2025 1:30 PM EST Office Visit Medical Office Building [facility] [address] [facility], [address] [place] [address] Arnav Ibarra MD [address] [place] [address] documented as of this encounter [...] documented as of this encounter Care Teams Varying Exceptionalities Teacher Relationship Specialty Start Date End Date Naya Goodwin, BULL CHAIN OPERATOR [address] [place], [place] [phone] PCP - General 07/11/20 Chelsey Mascorro [address] [place] [address] [place] [address] Referring Physician Gynecology 01/19/21 Yong Mata MD [facility] [address] [place] [address] Surgeon Pain Medicine 05/12/21 Malena Burton, NATALIE [id number] [place] [address] Nurse Practitioner Urology 06/09/23 documented as of this encounter
--- OUTSIDE RECORDS SUMMARY | 2024-12-14 12:31 | XMS_ITS | Encounter Summary ---
Author Organization [facility] Address [address] [place] [address] Care Team Providers Care Pension Administrator Name Role Phone Naya Goodwin PIN DRAFTER OPERATOR Primary Care Provider [phone] Chelsey Mascorro Unavailable Yong Mata MD Unavailable Malena Burton APRN Unavailable [phone] Encounter Details Date Type Department Care Team (Late Contact Info) Description 05/10/2023 Orders Only External Location [address] [place] [address] Provider, External Social History Tobacco [...] EDT Office Visit [facility] [address] [facility] [address] [place] [address] Nevaeh Harrison S, PIN DRAFTER OPERATOR [address] [facility] [address] [place] [address] 03/06/2025 1:00 PM EST Clinical Support [facility] Laboratory Services [address] [facility], 1st [place] [address] 03/20/2025 11:20 AM EST Pharmacist Visit [facility] Mineral [facility] [address] [facility], [address] [place] [address] Neil Saldana, PharmD [address] [facility] [address] [place] [address] 03/27/2025 1:00 PM EST Office Visit [facility] [address], [address] [place] [address] Malena Burton, PIN DRAFTER OPERATOR [address] [place] [address] 04/25/2025 1:30 PM EST Office Visit Medical Office Building [facility] [address] [facility], [address] [place] [address] Arnav Ibarra MD [address] [place] [address] documented as of this encounter [...] documented as of this encounter Care Teams Pension Administrator Relationship Specialty Start Date End Date Naya Goodwin APRN [facility] [place], [place] [id number] PCP - General 07/11/20 Chelsey Mascorro [address] [place] [address] [place] [address] Referring Physician Gynecology 01/19/21 Yong Mata MD [facility]0 [place] [address] [place], [place] [address] Surgeon Pain Medicine 05/12/21 Malena Burton APRN [address] [facility] [address] [place] [address] Nurse Practitioner Urology 06/09/23 documented as of this encounter
--- OUTSIDE RECORDS SUMMARY | 2024-12-14 12:32 | XMS_ITS | Encounter Summary ---
Author Organization [facility] Address [address] [place] [id number] Care Team Providers Care Veterinary Technician Instructor Name Role Phone Naya Goodiwn BREADING MACHINE TENDER Primary Care Provider [phone] Chelsey Mascorro Unavailable Yong Mata MD Unavailable Malena Burton BREADING MACHINE TENDER Unavailable [phone] Encounter Details Date Type Department Care Team (Late st Contact Info) Description 11/07/2024 Telephone [facility] [address] [place] [phone] Nevaeh Harrison, BREADING MACHINE TENDER [address] [facility] [address] [place] [address] Social History Tobacco Use Types [...] Telephone Encounter - Nevaeh Harrison APRN - 11/07/2024 12:21 PM EDT Left Vm about pap smear documented in this encounter Plan of Treatment Upcoming Encounters Date Type Department Care Team (Late st Contact Info) Description 12/25/2024 2:30 PM EDT Office Visit [facility] [address] [place] [address] Nevaeh Harrison, NATALIE [address] [facility] [address] [place] [phone] 03/06/2025 1:00 PM EST Clinical Support [facility] [address] [facility], [address] [place] [address] 03/20/2025 11:20 AM EST Pharmacist Visit [facility] [address] [facility], [address] [place] [phone] Neil Saldana, PharmD [address] [facility] [address] [place] [phone] 03/27/2025 1:00 PM EST Office Visit [facility] [address], [address] [place] [address] Malena Burton, BREADING MACHINE TENDER [address] [place] [phone] 04/25/2025 1:30 PM EST Office Visit [facility] [address] [facility], [address] [place] [phone] Arnav Ibarra MD [address] [facility] [address] [place] [address] documented as of this encounter [...] documented as of this encounter Care Teams Veterinary Technician Instructor Relationship Specialty Start Date End Date Naya Goodwin APRN [address] [place] [address] [id number] PCP - General 07/11/20 Chelsey Mascorro [address] [place] [address] [place] [address] Referring Physician Gynecology 01/19/21 Yong Mata MD [facility] [id number] [place] [address] Surgeon Pain Medicine 05/12/21 Malena Burton APRN [id number] [place] [address] Nurse Practitioner Urology 06/09/23 documented as of this encounter
--- OUTSIDE RECORDS SUMMARY | 2024-12-14 12:32 | XMS_ITS | Continuity of Care Document ---
Author Organization [employer] [facility] Address [address] [place] [address] Assessment Encounter Date Assessment Date Assessment LastModified [...] proceed to ER. Not available 11/13/2024 18:16:28 Plan of Treatment Reminders Order Date Submit Date Provider Last Modified By Organization Details Last Modified Time Details Appointments None recorded. Lab None recorded. Referral None recorded. Procedures None recorded. Surgeries None recorded. Imaging None recorded. Medication Orders promethazin e 12.5 mg tablet 2024 025 [facility], [address] [place] [address], [id number], 16:38:14 meclizine 12.5 mg tablet 2024 025 [facility], [address] [place] [address], [address], 5 05:01:08 promethazin e 25 mg/mL injection solution 2024 025 [email or web address] Not available 15:00:29 pantoprazol e 40 mg tablet,carlos yed release 2024 025 [facility], [address] [place] [address], [address], 16:38:14 Patient TargetsNo targets recorded. Patient InstructionsNo instructions recorded. Reason for Referral None Reported. Problems Name Problem SNOMED Code Status Onset Date Resolution Date Notes Provider Name and Address Organization Details Recorded Time Major depressi on, single episode 40444848 Completed 201605/19/2017 Problem Code: F32.9; Problem Code Type: ICD-10; Not Available [facility] 22:26:38 Moderate recurren t major depressi on 92186285 Completed 201611/26/2018 Problem Code: F33.1; Problem Code Type: ICD-10; Not Available [facility] 2 22:26:38 Lumbosac ral radiculo aiden 5814732 Completed 201611/17/2017 Problem Code: M54.16; Problem Code Type: ICD-10; Not Available [facility] 2 22:26:44 Low back pain 020821777 Completed 201611/17/2017 Problem Code: 724.2; Problem Code Type: ICD-9; Naya Goodwin, [employer]MING [employer] OPERATOR [address] [place], [address] , [employer] 4 08:40:49 Chronic obstruct mitesh pulmonar y disease 66073969 Completed 201607/11/2020 Problem Code: 496; Problem Code Type: ICD-9; Not Available [facility] 2 22:27:12 Influenz a 0863455 Completed 201704/08/2017 Problem Code: J10.1; Problem Code Type: ICD-10; MARY dunn, [employer] 2 11:49:03 Influenz a with non-resp iratory manifest ation 40872097 Completed 201704/08/2017 Problem Code: 487.8; Problem Code Type: ICD-9; Not Available [facility] 2 22:27:11 Generali zed anxiety disorder 89840920 Completed 201708/17/2017 Problem Code: F41.1; Problem Code Type: ICD-10; Not Available [facility] 2 22:26:38 Gastroes ophageal reflux disease without esophagi tis 586952944 Completed 201711/17/2021 MARY dunn, [employer] 2 11:49:03 Gastro-e sophagea l reflux disease with esophagi tis 534583370 Active 2017 Problem Code: K21.0; Problem Code Type: ICD-10; Not Available [facility] 2 22:27:00 Gastroes ophageal reflux disease 075686839 Completed 201707/11/2020 Problem Code: 530.81; Problem Code Type: ICD-9; Not Available [facility] 22:27:07 Moderate recurren t major depressi on 33606943 Active 2017 Problem Code: F33.1; Problem Code Type: ICD-10; Not Available [facility] 22:26:38 Chronic post-tra umatic stress disorder 947273790 Completed 201708/19/2017 Problem Code: F43.12; Problem Code Type: ICD-10; Not Available [facility] 22:26:38 Post-tra umatic stress disorder 66444143 Active 2017 Problem Code: F43.10; Problem Code Type: ICD-10; Not Available [facility] 22:26:39 Sleep behavior finding 955938287 Completed 201711/17/2017 Not Available [facility] 22:26:39 Chronic pain syndrome 507735290 Active 2017 Problem Code: G89.4; Problem Code Type: ICD-10; Not Available [facility] 22:26:39 Sarah buchanan lucyyoanna g Completed 201711/17/2017 [facility]unn [facility] 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 75248126 Completed 201707/11/2020 Problem Code: 053.12; Problem Code Type: ICD-9; Not Available [facility] 22:27:02 Organic sleep disorder 829952664 Completed 201711/17/2017 Problem Code: 327.8; Problem Code Type: ICD-9; Not Available [facility] 22:27:06 Asthenia 78548066 Completed 201711/17/2017 Problem Code: R53.1; Problem Code Type: ICD-10; Not Available [facility] 22:27:08 Malaise and fatigue 042817928 Completed 201711/17/2017 Problem Code: 780.79; Problem Code Type: ICD-9; Not Available [facility] 22:27:09 Hyperlip idemia screenin g Completed 201711/17/2017 Problem Code: V77.91; Problem Code Type: ICD-9; Not Available [facility] 22:27:09 Herpesvi uzma infectio n 26123352 Completed 201711/26/2018 Problem Code: A60.09; Problem Code Type: ICD-10; Not Available [facility] 22:26:37 Genital herpes simplex 49776466 Completed 201707/11/2020 Problem Code: 054.19; Problem Code Type: ICD-9; Not Available [facility] 22:27:01 Acute sinusiti s 53040849 Completed 201712/01/2017 Problem Code: J01.90; Problem Code Type: ICD-10; MARY dunn, [employer] 11:49:03 Otitis externa 8761129 Completed 201702/14/2018 Problem Code: H60.339; Problem Code Type: ICD-10; Not Available [facility] 22:26:39 Acute sinusiti s 53738565 Completed 201701/02/2018 Problem Code: J01.90; Problem Code Type: ICD-10; MARY dunn, [employer] 11:49:03 Nausea and vomiting 85047720 Completed 201702/14/2018 Problem Code: R11.2; Problem Code Type: ICD-10; Not Available [facility] 22:26:48 Acute swimmer' s ear Completed 201702/14/2018 Problem Code: 380.12; Problem Code Type: ICD-9; Not Available [facility] 22:27:04 Nausea 507022891 Completed 201811/26/2018 Problem Code: R11.0; Problem Code Type: ICD-10; Not Available [facility] 2 22:26:47 Generali zed abdomina l pain 154374611 Completed 201811/26/2018 Problem Code: R10.84; Problem Code Type: ICD-10; Not Available [facility] 2 22:26:46 Nausea and vomiting 63684673 Completed 201811/26/2018 Problem Code: R11.2; Problem Code Type: ICD-10; Not Available [facility] 2 22:26:47 Abdomina l bloating 953358027 Completed 201811/17/2021 Problem Code: R14.0; Problem Code Type: ICD-10; MARY dunn, [employer] 2 11:49:02 Generali zed anxiety disorder 73259183 Active 2018 Problem Code: F41.1; Problem Code Type: ICD-10; Not Available [facility] 2 22:26:38 Chronic post-tra umatic stress disorder 838405156 Completed 201811/26/2018 Problem Code: F43.12; Problem Code Type: ICD-10; Not Available [facility] 22:26:38 Acute sinusiti s 11566271 Completed 201811/26/2018 Problem Code: J01.90; Problem Code Type: ICD-10; MARY dunn, [employer] 2 11:49:03 Onycholy sis 44734981 Completed 201811/26/2018 Problem Code: L60.1; Problem Code Type: ICD-10; Not Available [facility] 2 22:26:44 Renal angle tenderne ss 105694760 Completed 201811/17/2021 Problem Code: R10.821; Problem Code Type: ICD-10; MARY dunn, [employer] 2 11:49:02 Dehydrat ion 67338149 Completed 201811/26/2018 Problem Code: E86.0; Problem Code Type: ICD-10; Not Available [facility] 2 22:26:38 Low blood pressure 34418697 Completed 201811/26/2018 Problem Code: I95.9; Problem Code Type: ICD-10; Naya Goodwin APRN [address] [place], [address] , [employer] 5 15:57:42 Screenin g mammogra phy Completed 201811/26/2018 Problem Code: Z12.31; Problem Code Type: ICD-10; MARY MYELIZABETH null, [employer] 2 11:49:03 Influenz a vaccine needed 02331668626 06 Completed 201811/17/2021 Problem Code: Z23; Problem Code Type: ICD-10; MARY MYELIZABETH null, [employer] 2 11:49:02 Snoring 66670934 Completed 201809/24/2019 Problem Code: R06.83; Problem Code Type: ICD-10; Not Available [facility] 2 22:26:46 Hemorrho ids 78558387 Completed 201809/24/2019 Problem Code: K64.9; Problem Code Type: ICD-10; Not Available [facility] 2 22:26:43 Acute sinusiti s 38613793 Completed 201809/04/2019 Problem Code: J01.90; Problem Code Type: ICD-10; MARY RAZIAJAYESHR null, [employer] 2 11:49:03 General examinat ion of patient Completed 201907/11/2020 MARY RAZIANEAR null, [employer] 2 11:49:03 Body mass index 20-24 - normal 304063625 Active 2019 Not Available [facility] 2 22:26:59 Low blood pressure 84049601 Completed 201911/06/2019 Problem Code: I95.9; Problem Code Type: ICD-10; Naya Goodwin APRN [address] [place], [address] , [employer] 5 15:57:42 Function al diarrhea 81855099 Completed 201911/06/2019 Problem Code: K59.1; Problem Code Type: ICD-10; Not Available [facility] 2 22:26:42 Influenz a 5871007 Completed 201911/17/2021 Problem Code: J10.1; Problem Code Type: ICD-10; MARY RANDLEELIZABETH mona, [employer] 2 11:49:03 Pyrexia of unknown origin 6212614 Completed 201909/04/2019 Problem Code: R50.9; Problem Code Type: ICD-10; MARY RANDLEELIZABETH null, [employer] 2 11:49:03 Nausea 050636094 Completed 201909/04/2019 Problem Code: R11.0; Problem Code Type: ICD-10; Not Available [facility] 2 22:26:47 Acute sinusiti s 67913251 Completed 201909/24/2019 Problem Code: J01.90; Problem Code Type: ICD-10; MARY RANDLEELIZABETH null, [employer] 2 11:49:03 Vitamin D deficien cy 39241599 Active 2019 Problem Code: E55.9; Problem Code Type: ICD-10; Not Available [facility] 2 22:26:38 Dysplasi a of vulva 624438019 Completed 201908/31/2021 Problem Code: N90.3; Problem Code Type: ICD-10; Not Available [facility] 2 22:26:45 Screenin g mammogra phy Completed 201911/06/2019 Problem Code: Z12.31; Problem Code Type: ICD-10; MARY RAZIAELIZABETH null, [employer] 2 11:49:03 Current drug user 316872642 Completed 201911/06/2019 Problem Code: Z79.899; Problem Code Type: ICD-10; Naya Goodwin, NATALIE [address] [place], [address] , [employer] 4 08:41:04 Acute pansinus itis 5865966 Completed 201911/17/2021 Problem Code: J01.41; Problem Code Type: ICD-10; MARY dunn, [employer] 2 11:49:03 Influenz a vaccine needed 40405761109 06 Completed 201912/25/2019 Problem Code: Z23; Problem Code Type: ICD-10; MARY CANTOR null, [employer] 2 11:49:02 Low blood pressure 40125636 Completed 201908/31/2021 Problem Code: I95.9; Problem Code Type: ICD-10; Naya Goodwin APRN [address] [place], [address] , [employer] 5 15:57:42 Acute pansinus itis 5972999 Completed 201903/17/2020 Problem Code: J01.41; Problem Code Type: ICD-10; MARY RAZIAELIZABETH null, [employer] 2 11:49:03 Tobacco dependen ce caused by cigarett es 36745503199 222312 Active 2020 Problem Code: F17.210; Problem Code Type: ICD-10; Not Available [facility] 2 22:26:38 General examinat ion of patient Completed 202007/11/2020 MARY RAZIAELIZABETH null, [employer] 2 11:49:03 Body mass index 20-24 - normal 033352272 Completed 202007/11/2020 Not Available [facility] 2 22:26:59 Dysuria 28131643 Completed 202011/17/2021 Problem Code: R30.0; Problem Code Type: ICD-10; MARY RANDLENEAR null, [employer] 11:49:03 Acute sinusiti s 20983531 Completed 202011/17/2021 Problem Code: J01.90; Problem Code Type: ICD-10; MARY MYNEAR null, [employer] 11:49:03 Lumbosac ral radiculo aiden 3160011 Active 2020 Problem Code: M54.16; Problem Code Type: ICD-10; Not Available [facility] 22:27:02 Irritabl e bowel syndrome 82821899 Active 2020 Problem Code: K58.2; Problem Code Type: ICD-10; Naya Goodwin, [employer]MING [employer] OPERATOR [address] [place] [address], [address] [facility] [employer] 5 16:08:54 Screenin g mammogra phy Completed 202011/17/2021 Problem Code: Z12.31; Problem Code Type: ICD-10; MARY RANDLENEAR null, [employer] 11:49:03 Ingrowin g nail 566521542 Completed 202008/31/2021 Problem Code: L60.0; Problem Code Type: ICD-10; Not Available [facility] 22:26:43 Disorder of upper respirat ory system 306398823 Completed 202011/17/2021 Problem Code: J06.9; Problem Code Type: ICD-10; MARY RAZIANEAR null, [employer] 11:49:03 Otogenic otalgia 99639707 Completed 202012/04/2021 LYNDSEY BARTLETT null, [employer] 08:50:49 Allergic rhinitis 46412328 Completed 202011/17/2021 Problem Code: J30.9; Problem Code Type: ICD-10; AMRY dunn, [employer] 2 11:49:03 Influenz a vaccine needed 75043067096 06 Completed 202008/31/2021 Problem Code: Z23; Problem Code Type: ICD-10; MARY dunn, [employer] 2 11:49:02 Benign paroxysm al position al vertigo or nystagmu s 003517677 Completed 202111/17/2021 MARY dunn, [employer] 2 11:49:03 General examinat ion of patient Completed 202111/17/2021 MARY dunn, [employer] 2 11:49:03 Acute sinusiti s 45655759 Completed 202108/31/2021 Problem Code: J01.90; Problem Code Type: ICD-10; MARY dunn, [employer] 2 11:49:03 Dizzines s and giddines s 194127231 Completed 202108/31/2021 Problem Code: R42; Problem Code Type: ICD-10; MARY dunn, [employer] 2 11:49:03 Headache 16609573 Completed 202111/17/2021 Problem Code: R51; Problem Code Type: ICD-10; MARY dunn, [employer] 2 11:49:03 Chronic fatigue syndrome 05939258 Completed 202108/31/2021 Problem Code: R53.82; Problem Code Type: ICD-10; Not Available [facility] 22:26:51 Exposure to SARS-CoV -2 Completed 202111/17/2021 Problem Code: Z20.822; Problem Code Type: ICD-10; MARY dunn, [employer] 2 11:49:03 Dizzines s and giddines s 839034588 Completed 202111/17/2021 Problem Code: R42; Problem Code Type: ICD-10; MARY CANTOR null, [employer] 2 11:49:03 Acute non-supp urative serous otitis media 115749687 Completed 202111/17/2021 Problem Code: H65.01; Problem Code Type: ICD-10; MARY DIAZR null, [employer] 2 11:49:03 Influenz a 2778225 Completed 202108/31/2021 Problem Code: J10.1; Problem Code Type: ICD-10; MARY DIAZR null, [employer] 2 11:49:03 Choleste rol screenin g Completed 202108/31/2021 MARYLILIAM DIAZR [email or web address], [employer] 2 11:49:36 Low blood pressure 36286524 Completed 202108/31/2021 Problem Code: I95.9; Problem Code Type: ICD-10; Naya Goodwin APRN [address] [place], [address] , [employer] 5 15:57:42 Pyrexia of unknown origin 8803655 Completed 202111/17/2021 Problem Code: R50.9; Problem Code Type: ICD-10; MARY DIAZR null, [employer] 2 11:49:03 Tick-bor ne relapsin g fever 63874023 Completed 202111/17/2021 Problem Code: A68.1; Problem Code Type: ICD-10; MARY DIAZR null, [employer] 2 11:49:02 Candidia sis of vagina 76017020 Active 2024 Naya Goodwin APRN [address] [place], [address] , [employer], [employer] 5 10:26:24 Cobalami n deficien cy 506071118 Active 2024 Naya TorresNATALIE morris [address] [place], [address] , [employer] 5 10:28:44 Vertigo 418562884 Active 2024 Naya NATALIE Goodwin [address] [place], [place], [address] [place] [address] , [employer] 5 16:08:45 Problem Notes None recorded. Procedures Surgical History Date Name Laterality Status Provider Name and Address Organization Details Recorded Time 11/01/19 24 Most Recent Mammogram completed [employer] 12/12/2023 11:29:34 09/29/19 23 Date of Last Pap Smear completed [employer] 04/04/2023 14:50:35 04/05/19 23 Suture/Staple removal completed Nayamary ellen Goodwin APRN [address] [place], [address], [employer] 04/05/2022 09:45:46 03/25/19 21 Tlh uterus 250 g or less completed Not Available [facility] 11/03/2021 22:56:26 06/07/19 19 cholecystectomy completed Not Available [facility] 11/03/2021 22:56:26 Hysterectomy completed [employer] 11/17/2021 11:54:15 Appendectomy completed [employer] 11/17/2021 11:54:25 Imaging Results None recorded. Procedure Notes None recorded. Medical Equipment None Reported. Allergies Allergen ID Allergen Name Allergen Category Reaction Reaction Severity Criticality Documentation Date Start Date Code Code System Note Provider Name and Address Organization Details Recorded Time 91581 Product containin g penicilli n (product) medicatio n Not available Not available Not available 11/03/2021 37078 8008 SNOMED LYNDSEY dunn [employer] 2 08:48:34 81790 sulfameth oxazole medicatio n Not available Not available Not available 11/03/2021 31067 RxNorm Not Available [facility] 2 22:57:14 48487 Chantix medicatio n Not available Not available Not available 11/03/2021 85193 0 RxNorm Not Available [facility] 2 22:57:14 Medications Name Sig Start [...] Not Available Not Available Not Available dextrometho jamie-johnathan enesin 10 mg-100 mg/5 mL oral syrup [...] Updated DateTime 5 157.48 cm 23.7 kg/m2 72174.5 7 g 99 [degF] 81 /min 95 % 95 % 122/75 mm[Hg] MARY CANTOR [employer] 15:51:18 Social History Question Answer Notes LastModified by Organizat ion Details LastModified Time Tobacco Smoking Status Former Smoker LYNDSEY dunn [employer] 12/04/2021 08:51:44 Do You Have An Advance [...] Or The Highest Degree You Have Received? [id number] Information not available 11/17/2021 When Did You Quit Smoking? 1-5yearssinc elastcigaret te Information not available 11/17/2021 Are There Any Guns Present In Your Home? No Information not available 11/17/2021 Do You Have A Medical Power Of Linen Room Custodian? No Information not available 11/17/2021 What Was [...] Functional Status Question Answer Note LastModified by [employer] Details LastModified Time Do you use any [...] Mental Status Question Answer Note LastModified by [employer] Details LastModified Time Do you feel stressed (tense, restless, nervous, or anxious, or unable to sleep at night)? [id number] [email or web address] Information not available 02/27/2024 Do you have difficulty concentrating, remembering or making decisions? No Information no t available 11/17/2021 Family History Relationship Description Onset Age of this Age Resolved Age Notes LastModified by Organization Details LastModified Time Father No current problems or disability [email or web address] Not available 09:44:05 Mother No current problems or disability [email or web address] Not available 09:44:05 Medical History Condition Response [...] virus, quadrivalent, PF 3 completed Allegra Stephens, [employer]MING [employer] OPERATOR [address] [place], [address], [employer] 12/03/2022 10:26:06 COVID-19, mRNA, LNP-S, PF, 100 mcg/0.5mL dose or 50 mcg/0.25mL dose 1 completed MARY dunn, [employer] 04/05/2022 09:07:25 COVID-19, mRNA, LNP-S, PF, 100 mcg/0.5mL dose or 50 mcg/0.25mL dose 1 completed MARY CANTOR null, [employer] 04/05/2022 09:07:25 Influenza, split virus, quadrivalent, preservative 8 completed Not Available [facility] 11/03/2021 22:57:21 Influenza, split virus, quadrivalent, PF 1 completed Not Available [facility] 11/03/2021 22:57:21 Influenza, split virus, quadrivalent, PF 0 completed Not Available [facility] 11/03/2021 22:57:22 Influenza, split virus, trivalent, preservative 7 completed Not Available [facility] 04/04/2023 14:24:12 Influenza, split virus, trivalent, preservative 9 completed Not Available [facility] 04/04/2023 14:24:12 Hep A, adult 8 completed Not Available [facility] 11/03/2021 22:57:23 Hep A, adult 9 completed Not Available [facility] 11/03/2021 22:57:23 COVID-19, mRNA, LNP-S, PF, caprice-sucrose, 30 mcg/0.3 mL 4 completed Gabrielle Butler null, [employer] 01/27/2024 16:27:56 Influenza, split virus, trivalent, PF 4 completed Naya Goodwin APRN [address] [place] [address], [address], [employer] 12/12/2023 12:03:17 Influenza, split virus, quadrivalent, preservative 9 completed MARY MYNEAR null, [employer] 04/05/2022 09:07:25 Influenza, split virus, quadrivalent, preservative 6 completed MARY MYNEAR null, [employer] 04/05/2022 09:07:25 Influenza, MDCK, quadrivalent, PF 2 completed MARY MYNEAR null, [employer] 04/05/2022 09:07:25 COVID-19, mRNA, LNP-S, PF, 100 mcg/0.5mL dose or 50 mcg/0.25mL dose 2 completed MARY MYNEAR null, [employer] 04/05/2022 09:07:25 COVID-19, mRNA, LNP-S, PF, 100 mcg/0.5mL dose or 50 mcg/0.25mL dose 1 completed MARY MYNEAR null, [employer] 04/05/2022 09:07:25 Past Encounters Encounter ID Performer Location Encounter Start Date Encounter Closed Date Diagnosis/Indication Diagnosis SNOMED-CT Code Diagnosis ICD10 Code Diagnosis IMO Codes Diagnosis Note [id number] Naya Goodwin APRN [address] [address] 11/13/2024 15:34:18 11/14/2024 08:52:35 Vertigo 087861832 R42 [id number] Irritable bowel syndrome 89554959 K58.9 97020499 Continue buspar, lorazepam, and protonix with probioitic daily. Gastroesop hageal reflux disease without esophagitis 018732705 K21.9 Continue PPI. Health Concerns Section Related Observation LastModified by Organization Detai ls LastModified Time None Recorded Concern Status LastModified by Organization Details LastModified Time None Recorded Payers Encounter Date Sequence Insurance Name Policy Number Policy Rhodes Covered Member ID Rhodes Member ID Guarantor Name 11/13/2024 1 [place]MEDICARE REPLACEMENT HMO) [id number] Luna Foreman [id number] Luna Foreman Notes Date Note Type Note Provider Name and Address Organization Details Recorded Time 11/13/2024 text/html ROS as noted in the HPI [...] travel- Stress: Experiencing emotional stress. Naya Goodwin, FORMING YARDAGE CONTROL OPERATOR [address] [facility], [place], [address], [facility] [employer] 11/13/2024 18:17:44 OBGyn Episode No OBEpisode recorded.
--- OUTSIDE RECORDS SUMMARY | 2024-12-14 12:32 | XMS_ITS | Encounter Summary ---
Author Organization [facility] Address [address] [place] [address] Care Team Providers Care Wet Process Operator Name Role Phone Naya Goodwin ELECTRO TECH Primary Care Provider [phone] Chelsey Mascorro Unavailable Yong Mata MD Unavailable Malena Burton APRN Unavailable [phone] Encounter Details Date Type Department Care Team (Late st Contact Info) Description 12/13/2024 Telephone [facility] [address], [address] [place] [address] Malena Burton APRN [address] [place] [address] Social History Tobacco Use Types [...] encounter Miscellaneous Notes * Telephone Encounter - Rishi Sawyer - 12/13/2024 1:36 PM EDT appointment scheduled for 03/27/25 at 1pm at [facility]. patient verbalized understanding. reminder mailed. documented in this encounter Plan of Treatment Upcoming Encounters Date Type Department Care Team (Late st Contact Info) Description 12/25/2024 2:30 PM EDT Office Visit [facility] [address] [place] [address] Nevaeh Harrison, ELECTRO TECH [address] [facility] [address] [place] [address] 03/06/2025 1:00 PM EST Clinical Support [facility] Laboratory Services [address] [place] [phone] 03/20/2025 11:20 AM EST Pharmacist Visit [facility] [address], [address] [place] [address] Neil Saldana, PharmD [address] [place] [phone] 03/27/2025 1:00 PM EST Office [facility] [address] [place] [address] Malena Burton, ELECTRO TECH [address] [place] [address] 04/25/2025 1:30 PM EST Office Visit [facility] [address], [address] [place] [phone] Arnav Ibarra MD [address] [place] [phone] documented as of this encounter Visit Diagnoses [...] documented as of this encounter Care Teams Wet Process Operator Relationship Specialty Start Date End Date Naya Goodwin APRN [facility] [place] [address] PCP - General 07/11/20 Chelsey Mascorro [address] [place] [address] [place] [address] Referring Physician Gynecology 01/19/21 Yong Mata MD [address] [facility] [address] [place] [address] Surgeon Pain Medicine 05/12/21 Malena Burton APRN [address] [facility] [address] [place] [address] Nurse Practitioner Urology 06/09/23 documented as of this encounter
--- OUTSIDE RECORDS SUMMARY | 2024-12-14 12:33 | XMS_ITS | Continuity of Care Document ---
Author Organization [place] - [employer] [facility] Address [address] [place] [phone] Assessment Encounter Date Assessment Date Assessment LastModified by Organization Details LastModified Time 11/26/2024 11/26/2024 Luna Foreman presented with persistent [...] promethazin e 12.5 mg tablet 2024 025 [facility], [address] [place] [address], [id number], 15:52:47 meclizine 25 mg tablet 2024 025 [facility], [address] [place] [address], [address], 10/06/202 5 16:35:10 Medrol (Jackson) 4 mg tablets in a dose pack 2024 025 [facility], [address] [place] [address], [address], 15:52:46 Patient TargetsNo targets recorded. Patient InstructionsNo instructions recorded. Reason for Referral None Reported. Problems Name Problem SNOMED Code Status Onset Date Resolution Date Notes Provider Name and Address Organization Details Recorded Time Major depressi on, single episode 60352111 Completed 201605/19/2017 Problem Code: F32.9; Problem Code Type: ICD-10; Not Available [facility] 22:26:38 Moderate recurren t major depressi on 01648004 Completed 201611/26/2018 Problem Code: F33.1; Problem Code Type: ICD-10; Not Available [facility] 2 22:26:38 Lumbosac ral radiculo aiden 9913186 Completed 201611/17/2017 Problem Code: M54.16; Problem Code Type: ICD-10; Not Available [facility] 2 22:26:44 Low back pain 817456322 Completed 201611/17/2017 Problem Code: 724.2; Problem Code Type: ICD-9; Naya Goodwin, NATALIE [address] [place] [address], [address] , [employer] 4 08:40:49 Chronic obstruct mitesh pulmonar y disease 58614984 Completed 201607/11/2020 Problem Code: 496; Problem Code Type: ICD-9; Not Available [facility] 2 22:27:12 Influenz a 7136918 Completed 201704/08/2017 Problem Code: J10.1; Problem Code Type: ICD-10; MARY dunn, [employer] 2 11:49:03 Influenz a with non-resp iratory manifest ation 66463912 Completed 201704/08/2017 Problem Code: 487.8; Problem Code Type: ICD-9; Not Available [facility] 22:27:11 Generali zed anxiety disorder 67256447 Completed 201708/17/2017 Problem Code: F41.1; Problem Code Type: ICD-10; Not Available [facility] 22:26:38 Gastroes ophageal reflux disease without esophagi tis 481924111 Completed 201711/17/2021 MARY dunn, [employer]. 11:49:03 Gastro-e sophagea l reflux disease with esophagi tis 380534995 Active 2017 Problem Code: K21.0; Problem Code Type: ICD-10; Not Available [facility] 22:27:00 Gastroes ophageal reflux disease 280544986 Completed 201707/11/2020 Problem Code: 530.81; Problem Code Type: ICD-9; Not Available [facility] 22:27:07 Moderate recurren t major depressi on 25912036 Active 2017 Problem Code: F33.1; Problem Code Type: ICD-10; Not Available [facility] 22:26:38 Chronic post-tra umatic stress disorder 118405170 Completed 201708/19/2017 Problem Code: F43.12; Problem Code Type: ICD-10; Not Available [facility] 22:26:38 Post-tra umatic stress disorder 42304974 Active 2017 Problem Code: F43.10; Problem Code Type: ICD-10; Not Available [facility] 22:26:39 Sleep behavior finding 378080252 Completed 201711/17/2017 Not Available [facility] 22:26:39 Chronic pain syndrome 209008859 Active 2017 Problem Code: G89.4; Problem Code Type: ICD-10; Not Available [facility] 22:26:39 Sarah smiley Completed 201711/17/2017 MARY dunn, [employer]. 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 20591818 Completed 201707/11/2020 Problem Code: 053.12; Problem Code Type: ICD-9; Not Available [facility] 22:27:02 Organic sleep disorder 877604328 Completed 201711/17/2017 Problem Code: 327.8; Problem Code Type: ICD-9; Not Available [facility] 22:27:06 Asthenia 38393307 Completed 201711/17/2017 Problem Code: R53.1; Problem Code Type: ICD-10; Not Available [facility] 22:27:08 Malaise and fatigue 251879270 Completed 201711/17/2017 Problem Code: 780.79; Problem Code Type: ICD-9; Not Available [facility] 22:27:09 Hyperlip idemia screenin g Completed 201711/17/2017 Problem Code: V77.91; Problem Code Type: ICD-9; Not Available [facility] 22:27:09 Herpesvi uzma infectio n 27321941 Completed 201711/26/2018 Problem Code: A60.09; Problem Code Type: ICD-10; Not Available [facility] 22:26:37 Genital herpes simplex 39520643 Completed 201707/11/2020 Problem Code: 054.19; Problem Code Type: ICD-9; Not Available [facility] 22:27:01 Acute sinusiti s 73851948 Completed 201712/01/2017 Problem Code: J01.90; Problem Code Type: ICD-10; MARY dunn, [employer]. 11:49:03 Otitis externa 5363609 Completed 201702/14/2018 Problem Code: H60.339; Problem Code Type: ICD-10; Not Available [facility] 22:26:39 Acute sinusiti s 22933034 Completed 201701/02/2018 Problem Code: J01.90; Problem Code Type: ICD-10; MARY dunn, [employer] 11:49:03 Nausea and vomiting 54324499 Completed 201702/14/2018 Problem Code: R11.2; Problem Code Type: ICD-10; Not Available [facility] 22:26:48 Acute swimmer' s ear Completed 201702/14/2018 Problem Code: 380.12; Problem Code Type: ICD-9; Not Available [facility] 22:27:04 Nausea 986603882 Completed 201811/26/2018 Problem Code: R11.0; Problem Code Type: ICD-10; Not Available [facility] 22:26:47 Generali zed abdomina l pain 311508170 Completed 201811/26/2018 Problem Code: R10.84; Problem Code Type: ICD-10; Not Available [facility] 22:26:46 Nausea and vomiting 28910316 Completed 201811/26/2018 Problem Code: R11.2; Problem Code Type: ICD-10; Not Available [facility] 22:26:47 Abdomina l bloating 227959289 Completed 201811/17/2021 Problem Code: R14.0; Problem Code Type: ICD-10; MARY dunn, [employer] 11:49:02 Generali zed anxiety disorder 05537228 Active 2018 Problem Code: F41.1; Problem Code Type: ICD-10; Not Available [facility] 22:26:38 Chronic post-tra umatic stress disorder 556183949 Completed 201811/26/2018 Problem Code: F43.12; Problem Code Type: ICD-10; Not Available [facility] 22:26:38 Acute sinusiti s 17923873 Completed 201811/26/2018 Problem Code: J01.90; Problem Code Type: ICD-10; MARY dunn, [employer] 11:49:03 Onycholy sis 68121397 Completed 201811/26/2018 Problem Code: L60.1; Problem Code Type: ICD-10; Not Available [facility] 22:26:44 Renal angle tenderne ss 479148869 Completed 201811/17/2021 Problem Code: R10.821; Problem Code Type: ICD-10; MARY dunn, [employer] 11:49:02 Dehydrat ion 00843467 Completed 201811/26/2018 Problem Code: E86.0; Problem Code Type: ICD-10; Not Available [facility] 22:26:38 Low blood pressure 53386578 Completed 201811/26/2018 Problem Code: I95.9; Problem Code Type: ICD-10; Nyaa Goodwin, TRANSCRIPTER [address] [place] [address], [address] [facility] [employer] 5 15:57:42 Screenin g mammogra phy Completed 201811/26/2018 Problem Code: Z12.31; Problem Code Type: ICD-10; MARY dunn, [employer] 11:49:03 Influenz a vaccine needed 29903843830 Completed 201811/17/2021 Problem Code: Z23; Problem Code Type: ICD-10; MARY dunn, [employer]. 11:49:02 Snoring 66855361 Completed 201809/24/2019 Problem Code: R06.83; Problem Code Type: ICD-10; Not Available [facility] 22:26:46 Hemorrho ids 31568223 Completed 201809/24/2019 Problem Code: K64.9; Problem Code Type: ICD-10; Not Available [facility] 22:26:43 Acute sinusiti s 03646057 Completed 201809/04/2019 Problem Code: J01.90; Problem Code Type: ICD-10; MARY CANTOR null, [employer] 2 11:49:03 General examinat ion of patient Completed 201907/11/2020 MARY CANTOR null, [employer] 2 11:49:03 Body mass index 20-24 - normal 920562749 Active 2019 Not Available [facility] 2 22:26:59 Low blood pressure 23461207 Completed 201911/06/2019 Problem Code: I95.9; Problem Code Type: ICD-10; Naya Goodwin, TRANSCRIPTER [address] [place] [address], [address] , [employer] 5 15:57:42 Function al diarrhea 04237508 Completed 201911/06/2019 Problem Code: K59.1; Problem Code Type: ICD-10; Not Available [facility] 2 22:26:42 Influenz a 1180366 Completed 201911/17/2021 Problem Code: J10.1; Problem Code Type: ICD-10; MARY CANTOR null, [employer] 2 11:49:03 Pyrexia of unknown origin 1816188 Completed 201909/04/2019 Problem Code: R50.9; Problem Code Type: ICD-10; MARY CANTOR null, [employer] 2 11:49:03 Nausea 301221995 Completed 201909/04/2019 Problem Code: R11.0; Problem Code Type: ICD-10; Not Available [facility] 2 22:26:47 Acute sinusiti s 68025203 Completed 201909/24/2019 Problem Code: J01.90; Problem Code Type: ICD-10; MARY CANTOR null, [employer] 2 11:49:03 Vitamin D deficien cy 37768574 Active 2019 Problem Code: E55.9; Problem Code Type: ICD-10; Not Available [facility] 2 22:26:38 Dysplasi a of vulva 610676253 Completed 201908/31/2021 Problem Code: N90.3; Problem Code Type: ICD-10; Not Available [facility] 2 22:26:45 Screenin g mammogra phy Completed 201911/06/2019 Problem Code: Z12.31; Problem Code Type: ICD-10; MARY CANTOR null, [facility] 2 11:49:03 Current drug user 277227732 Completed 201911/06/2019 Problem Code: Z79.899; Problem Code Type: ICD-10; Naya Goodwin APRN [address] [place] [address], [address] , [employer] 4 08:41:04 Acute pansinus itis 2820362 Completed 201911/17/2021 Problem Code: J01.41; Problem Code Type: ICD-10; MARY RAZIANEAR null, [employer] 2 11:49:03 Influenz a vaccine needed 22797889131 06 Completed 201912/25/2019 Problem Code: Z23; Problem Code Type: ICD-10; MARY RAZIANEAR null, [employer] 2 11:49:02 Low blood pressure 05073787 Completed 201908/31/2021 Problem Code: I95.9; Problem Code Type: ICD-10; Naya Goodwin APRN [address] [place], [address] , [employer] 5 15:57:42 Acute pansinus itis 7872998 Completed 201903/17/2020 Problem Code: J01.41; Problem Code Type: ICD-10; MARY RAZIANEAR null, [employer] 2 11:49:03 Tobacco dependen ce caused by cigarett es 87315654855 574946 Active 2020 Problem Code: F17.210; Problem Code Type: ICD-10; Not Available [facility] 2 22:26:38 General examinat ion of patient Completed 202007/11/2020 MARY RANDLEELIZABETH null, [facility]. 2 11:49:03 Body mass index 20-24 - normal 832367704 Completed 202007/11/2020 Not Available [facility] 22:26:59 Dysuria 59085112 Completed 202011/17/2021 Problem Code: R30.0; Problem Code Type: ICD-10; MARY RAZIAELIZABETH null, [facility]. 2 11:49:03 Acute sinusiti s 09967767 Completed 202011/17/2021 Problem Code: J01.90; Problem Code Type: ICD-10; MARY RANDLEJAYESHAlexi null, [facility]. 2 11:49:03 Lumbosac ral radiculo aiden 2160806 Active 2020 Problem Code: M54.16; Problem Code Type: ICD-10; Not Available [facility] 22:27:02 Irritabl e bowel syndrome 66146922 Active 2020 Problem Code: K58.2; Problem Code Type: ICD-10; Naya Goodwin, NATALIE [address] [place] [address], [address] , [employer]. 5 16:08:54 Screenin g mammogra phy Completed 202011/17/2021 Problem Code: Z12.31; Problem Code Type: ICD-10; MARY RAZIAJAYESHR null, [employer] 2 11:49:03 Ingrowin g nail 342520298 Completed 202008/31/2021 Problem Code: L60.0; Problem Code Type: ICD-10; Not Available [facility] 22:26:43 Disorder of upper respirat ory system 696245826 Completed 202011/17/2021 Problem Code: J06.9; Problem Code Type: ICD-10; MARY CANTOR null, [employer] 2 11:49:03 Otogenic otalgia 61287121 Completed 202012/04/2021 LYNDSEY BARTLETT null, [facility]. 08:50:49 Allergic rhinitis 79737585 Completed 202011/17/2021 Problem Code: J30.9; Problem Code Type: ICD-10; MARY DIAZR null, [employer] 11:49:03 Influenz a vaccine needed 22675853568 06 Completed 202008/31/2021 Problem Code: Z23; Problem Code Type: ICD-10; MARY RANDLENEAR null, [employer] 2 11:49:02 Benign paroxysm al position al vertigo or nystagmu s 822051601 Completed 202111/17/2021 MARY RANDLENEAR null, [employer] 2 11:49:03 General examinat ion of patient Completed 202111/17/2021 MARY RANDLENEAR null, [employer] 2 11:49:03 Acute sinusiti s 52179240 Completed 202108/31/2021 Problem Code: J01.90; Problem Code Type: ICD-10; MARY RANDLENEAR null, [employer] 2 11:49:03 Dizzines s and giddines s 935127172 Completed 202108/31/2021 Problem Code: R42; Problem Code Type: ICD-10; MARY RANDLENEAR null, [employer] 2 11:49:03 Headache 18213080 Completed 202111/17/2021 Problem Code: R51; Problem Code Type: ICD-10; MARY CANTOR null, [employer] 2 11:49:03 Chronic fatigue syndrome 83825197 Completed 202108/31/2021 Problem Code: R53.82; Problem Code Type: ICD-10; Not Available [facility] 22:26:51 Exposure to SARS-CoV -2 Completed 202111/17/2021 Problem Code: Z20.822; Problem Code Type: ICD-10; MARY DIAZR null, [facility] [facility]. 2 11:49:03 Dizzines s and giddines s 587111669 Completed 202111/17/2021 Problem Code: R42; Problem Code Type: ICD-10; MARY DIAZR null, [employer] 2 11:49:03 Acute non-supp urative serous otitis media 925071576 Completed 202111/17/2021 Problem Code: H65.01; Problem Code Type: ICD-10; MARY DIAZR null, [employer] 2 11:49:03 Influenz a 7392091 Completed 202108/31/2021 Problem Code: J10.1; Problem Code Type: ICD-10; MARY RANDLENEAR null, [employer] 2 11:49:03 Choleste rol screenin g Completed 202108/31/2021 MARY RAZIANEAR null, [employer] 2 11:49:36 Low blood pressure 31011395 Completed 202108/31/2021 Problem Code: I95.9; Problem Code Type: ICD-10; Naya Goodwin, TRANSCRIPTER [address] [place] [address], [address] , [employer] 5 15:57:42 Pyrexia of unknown origin 6822871 Completed 202111/17/2021 Problem Code: R50.9; Problem Code Type: ICD-10; MARY dunn, [employer] 2 11:49:03 Tick-bor ne relapsin g fever 24978456 Completed 202111/17/2021 Problem Code: A68.1; Problem Code Type: ICD-10; MARY dunn, [employer] 2 11:49:02 Candidia sis of vagina 88077072 Active 2024 Naya Goodwin APRN [address] [place] [address], [address] [place] [address] , [employer] 5 10:26:24 Cobalami n deficien cy 355958711 Active 2024 Naya Goodwin APRN [address] [place] [address], [address] [place] [address] , [employer] 10:28:44 Vertigo 240118819 Active 2024 Naya Goodwin APRN [address] [place] [address], [address] [place] [address] , [employer] 5 16:08:45 Problem Notes None recorded. Procedures Surgical History Date Name Laterality Status Provider Name and Address Organization Details Recorded Time 11/01/19 24 Most Recent Mammogram completed MARY [facility] 12/12/2023 11:29:34 09/29/19 23 Date of Last Pap Smear completed [employer] 04/04/2023 14:50:35 04/05/19 23 Suture/Staple removal completed Naya Goodwin APRN [address] [place] [address], [address], [employer] 04/05/2022 09:45:46 03/25/19 21 Tlh uterus 250 g or less completed Not Available [employer] 11/03/2021 22:56:26 06/07/19 19 cholecystectomy completed Not Available [facility] 11/03/2021 22:56:26 Hysterectomy completed [employer] 11/17/2021 11:54:15 Appendectomy completed [employer] 11/17/2021 11:54:25 Imaging Results None recorded. Procedure Notes None recorded. Medical Equipment None Reported. Allergies Allergen ID Allergen Name Allergen Category Reaction Reaction Severity Criticality Documentation Date Start Date Code Code System Note Provider Name and Address Organization Details Recorded Time 66785 Product containin g penicilli n (product) medicatio n Not available Not available Not available 11/03/2021 96005 8001 SNOMED LYNDSEY BARTLETT mona [facility]. 08:48:34 07569 sulfameth oxazole medicatio n Not available Not available Not available 11/03/2021 85428 RxNorm Not Available [facility] 22:57:14 69998 Chantix medicatio n Not available Not available Not available 11/03/2021 60448 0 RxNorm Not Available [facility] 22:57:14 Medications Name Sig Start Date Stop [...] Not Available Not Available Not Available dextrometho rphan-guaif enesin 10 mg-100 mg/5 mL [...] Updated DateTime 5 157.48 cm 24 kg/m2 09331.6 g 98.4 [degF] 113 /min 96 % 96 % 112/73 mm[Hg] [facility]OR [facility] 5 15:09:15 Social History Question Answer Notes LastModified by Organizat ion Details LastModified Time Tobacco Smoking Status Former Smoker LYNDSEY dunn [facility] [employer] 12/04/2021 08:51:44 Do You Have An Advance [...] Or The Highest Degree You Have Received? [id number] Information not available 11/17/2021 When Did You Quit Smoking? 1-5yearssinc elastcigaret te Information not available 11/17/2021 Are There Any Guns Present In Your Home? No Information not available 11/17/2021 Do You Have A Medical Power Of Pattern Shop Supervisor? No Information not available 11/17/2021 What Was [...] anxious, or unable to sleep at night)? [id number] [email or web address] Information not available 02/27/2024 Do you have difficulty concentrating, remembering or making decisions? No Information no t available 11/17/2021 Family History Relationship Description Onset Age of this Age Resolved Age Notes LastModified by Organization Details LastModified Time Father No current problems or disability Not available 09:44:05 Mother No current problems or disability [email or web address] Not available 09:44:05 Medical History Condition Response [...] virus, quadrivalent, PF 3 completed Allegra Stephens, TRANSCRIPTER [address] [place] [address], [address], [employer] 12/03/2022 10:26:06 COVID-19, mRNA, LNP-S, PF, 100 mcg/0.5mL dose or 50 mcg/0.25mL dose 1 completed MARY dunn, [employer] 04/05/2022 09:07:25 COVID-19, mRNA, LNP-S, PF, 100 mcg/0.5mL dose or 50 mcg/0.25mL dose 1 completed MARY dunn, [employer] 04/05/2022 09:07:25 Influenza, split virus, quadrivalent, preservative 8 completed Not Available [facility] 11/03/2021 22:57:21 Influenza, split virus, quadrivalent, PF 1 completed Not Available [facility] 11/03/2021 22:57:21 Influenza, split virus, quadrivalent, PF 0 completed Not Available [facility] 11/03/2021 22:57:22 Influenza, split virus, trivalent, preservative 7 completed Not Available [facility] 04/04/2023 14:24:12 Influenza, split virus, trivalent, preservative 9 completed Not Available [facility] 04/04/2023 14:24:12 Hep A, adult 8 completed Not Available [facility] 11/03/2021 22:57:23 Hep A, adult 9 completed Not Available [facility] 11/03/2021 22:57:23 COVID-19, mRNA, LNP-S, PF, caprice-sucrose, 30 mcg/0.3 mL 4 completed Gabrielle Butler null, [employer] 01/27/2024 16:27:56 Influenza, split virus, trivalent, PF 4 completed Naya Goodwin, NATALIE [address] [place] [address], [address], [employer] 12/12/2023 12:03:17 Influenza, split virus, quadrivalent, preservative 9 completed MARY RAZIANEAR null, [employer] 04/05/2022 09:07:25 Influenza, split virus, quadrivalent, preservative 6 completed MARY RAZIANEAR null, [employer] 04/05/2022 09:07:25 Influenza, MDCK, quadrivalent, PF 2 completed MARY MYNEAR null, [employer] 04/05/2022 09:07:25 COVID-19, mRNA, LNP-S, PF, 100 mcg/0.5mL dose or 50 mcg/0.25mL dose 2 completed MARY MYNEAR null, [employer] 04/05/2022 09:07:25 COVID-19, mRNA, LNP-S, PF, 100 mcg/0.5mL dose or 50 mcg/0.25mL dose 1 completed MARY dunn [facility] [employer] 04/05/2022 09:07:25 Past Encounters Encounter ID Performer Location Encounter Start Date Encounter Closed Date Diagnosis/Indication Diagnosis SNOMED-CT Code Diagnosis ICD10 Code Diagnosis IMO Codes Diagnosis Note [id number] Naya Goodwin[address] [address] 11/13/2024 15:34:18 11/14/2024 08:52:35 Vertigo 084821596 R42 [id number] Irritable bowel syndrome 71451551 K58.9 [id number] Continue buspar, lorazepam, and protonix with probioitic daily. Gastroesop hageal reflux disease without esophagitis 973158300 K21.9 Continue PPI. [id number] Naya Goodwin[address] [address] 11/26/2024 14:30:18 11/26/2024 15:38:16 Vertigo 367830775 R42 [id number] Health Concerns Section Related Observation LastModified by Organization Detai ls LastModified Time None Recorded Concern Status LastModified by Organization Details LastModified Time None Recorded Payers Encounter Date Sequence Insurance Name Policy Number Policy Rhodes Covered Member ID Rhodes Member ID Guarantor Name 11/26/2024 1 [place] [employer] OF [facility] MEDIBLUE PLUS (MEDICARE REPLACEMENT HMO) [id number] Luna Foreman [id number] Luna Kellen Notes Date Note Type Note Provider Name and Address Organization Details Recorded Time 5 text/html ROS as noted in the [...] going like this. Naya Goodwin, NATALIE [address] [facility], [place], [address], [facility] [employer] 11/26/2024 17:09:13 OBGyn Episode No OBEpisode recorded.
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
--- NOTE | 2024-12-14 12:48 | ECG_ITS ---
APPROVED REPORT Exam: Resting ECG HR:77 bpm ECG Measurements Heart Rate 77 AXES [place] 158 P -23 QRSd 72 QRS -14 QT 376 T -4 QTc 408 Conclusion SINUS RHYTHM VOLTAGE CRITERIA FOR LVH [MEETS CRITERIA IN ONE OF: R(aVL), S(V1), R(V5), R(V5/V6)+S(V1)] ABNORMAL ECG Electronically signed by : GLORIA STRINGER, 12/14/2024 16:07:16
[2024-12-14] MEDS: MECLIZINE 25MG TABLET 25 MG PO (12:53)
[2024-12-14] MEDS: METHOCARBAMOL 500MG TABLET 1000 MG PO (12:53)
[2024-12-14 13:13] LABS: Hematocrit 42.0 % (37.0-47.0); Hemoglobin 13.8 g/dL (12.2-16.2); Immature Granulocytes % 0.3 %; Mean Corpuscular HGB Conc 32.9 g/dL (31.8-35.4); Mean Corpuscular Hemoglobin 32.6 pg (27.0-31.2); Mean Corpuscular Volume 99.3 fl (81-99); Nucleated Red Blood Cells % 0 %; Platelet Count 182 K/mm3 (142-424); Red Blood Count 4.23 M/mm3 (4.20-5.40); Red Cell Distribution Width-SD 43.8 fL; White Blood Count 6.9 K/mm3 (4.8-10.8)
--- NOTE | 2024-12-14 13:14 | HMH.ITSTN ---
GFR completion/results were overrode for the use of contrast media by the Physician on a risk vs. benefit situation with this patient.
[2024-12-14 13:24] LABS: Alanine Aminotransferase 20 U/L (12-78); Albumin Level 4.2 g/dl (3.5-5.0); Albumin/Globulin Ratio 1.7 (1.1-1.8); Alkaline Phosphatase 78 U/L (38-126); Anion Gap 10.9 mEq/L (5-15); Aspartate Amino Transferase 22 U/L (14-36); Bilirubin,Total 0.7 mg/dl (0.2-1.3); Blood Urea Nitrogen 12 mg/dl (7-17); Calcium 9.0 mg/dl (8.4-10.2); Carbon Dioxide 31 mmol/L (22.0-30.0); Chloride 102 mmol/L (98-107); Creatinine Clearance Estimated 53 mL/min (50-200); Creatinine,Serum 0.90 mg/dl (0.52-1.04); Estimated Glomerular Filt Rate 63 ml/min (>60); GFR (African American) 77 ML/MIN (>60); Globulin 2.5 g/dL (1.3-3.2); Glucose 95 mg/dl (74-100); Magnesium 2.1 mg/dl (1.6-2.3); Potassium 3.9 mmoL/L (3.5-5.1); Sodium 140 mmol/L (136-145); Total Protein,Serum 6.7 g/dl (6.3-8.2)
--- NOTE | 2024-12-14 13:29 | PC.NURSE ---
[email or web address]
[2024-12-14] MEDS: IOPAMIDOL-370 (76%);100ML BOTTLE 80 ML IV (13:38)
[2024-12-14] MEDS: 0.9 % SODIUM CHLORIDE 50 ML VIAL IV (13:38)
[2024-12-14] MEDS: SODIUM CHLORIDE 0.9% 10ML SYR (RAD ONLY) 10 ML IV (13:38)
--- NOTE | 2024-12-14 14:13 | PC.NURSE ---
pt given another warm blanket and she reports no other needs at this time. call urias within reach
--- NOTE | 2024-12-14 15:15 | PC.NURSE ---
Dr. garibay at [facility] for update on POC
== END 2024-12-14 15:30 | disposition home or self-care (01) ==
PROVIDERS: Emergency Provider Emergency Medicine; PCP Nurse Practitioner Family
DX: R42 Dizziness and giddiness (principal)
CPT/HCPCS: 70450; 70496; 70498; 80053; 83735; 85025; 93005; 99284; 99285; Q9967

== ENCOUNTER 2025-01-08 07:49 | Outpatient (CLI) | payer MEDICARE, MEDICAID, SELFPAY ==
--- OUTSIDE RECORDS SUMMARY | 2024-12-25 13:30 | XMS_ITS | Encounter Summary ---
Author Organization [facility] Address [address] [place] [id number] Care Team Providers Care Brick Chimney Builder Name Role Phone Naya Goodwin CLINICAL LABORATORY SCIENTIST Primary Care Provider Chelsey Mascorro Unavailable Yong Mata MD Unavailable Malena Burton APRN Unavailable [phone] Encounter Details Date Type Department Care Team (Late st Contact Info) Description 12/25/2024 2:30 PM EDT Office Visit [facility] [address] [place] [address] Nevaeh Harrison, CLINICAL LABORATORY SCIENTIST [address] [facility] [address] [place] [address] Vaginal itching; Yeast infection of the vagina [...] down, depressed, or hopeless Not at all 12/25/2024 2:21 PM EDT Violet Durbin Patient Health Questionnaire -2 Score 0 12/25/2024 2:21 PM EDT Violet Durbin documented as [...] She has been seen in ED at [facility] (had CT head, reports this was negative) [...] VIN3 01/28/20 ASCUS HPV + 03/19/20 RA [facility] BSO, no dysplasia or carcinoma on path [...] Does not use CPAP currently Vulvar cancer ([facility]) 07/13/2019 Malignant neoplasm of vulva, unspecified Weight loss 07/07/23 Past Surgical History: Procedure Laterality Date APPENDECTOMY N/A Appendectomy from [facility] BACK SURGERY 04/23/2024 pt reported CHOLECYSTECTOMY N/A Cholecystectomy from [facility] COLONOSCOPY DENTAL SURGERY N/A Dental surgery from [facility] HYSTERECTOMY N/A Hysterectomy from [facility] OTHER SURGICAL HISTORY N/A Open insertion of stimulator generator into back subcutaneous tissue and fascia from [facility] TONSILECTOMY, ADENOIDECTOMY, BILATERAL MYRINGOTOMY AND TUBES N/A Tonsillectomy With Adenoidectomy from [facility] TUBAL LIGATION N/A Tubal Ligation from [facility] VULVA SURGERY N/A Vulva surgery from [facility] She reports that she quit [...] nursing note reviewed. Exam conducted with a cook helper present. Constitutional: Appearance: Normal appearance. HENT: Head: Normocephalic. Eyes: Pupils: Pupils are equal, round, and reactive to light. Cardiovascular: Rate and Rhythm: Normal rate. Pulmonary: Effort: Pulmonary effort is normal. Abdominal: Palpations: Abdomen is soft. Genitourinary: General: Normal vulva. Exam position: Lithotomy position. Comments: Acetowhite change and diffuse redness noted throughout vagina. Previous scarring and biopsy sites indicated above. Red [place] above - previous biopsy at 10 o'clock. [...] dysplasia Assessment and plan 1: S/p RA [facility] BSO for cervical dysplasia. Pap smear 11/02/23 [...] recently had a negative CT head at [facility]. Team based care includes nurse intake, review of prior documentation, history, physical exam, lab orders, colposcopy, pap, biopsy. discussion of results, discussion of plan of care, and documentation. Encounter time 30 min. NATALIE Christensen [facility] GYNECOLOGY [address] [facility] [address] Dept Loc: [phone] documented in this encounter Plan of Treatment Upcoming Encounters Date Type Department Care Team (Late st Contact Info) Description 03/06/2025 1:00 PM EST Clinical Support [facility] Laboratory Services [address], 1st [place] [address] 03/20/2025 11:20 AM EST Pharmacist Visit [facility] Bone & Mineral Metabolism [address], [address] [place] [address] Neil Saldana, PharmD [address] [facility] [address] [place] [address] 03/27/2025 1:00 PM EST Office Visit [facility] [address] [place] [address] Malena Burton APRN [address] [place] [address] 04/17/2025 2:00 PM EST Office Visit [facility] Gynecology [address] [place] [address] Nevaeh Harrison APRN [address] [facility] [address] [place] [address] 04/25/2025 1:30 PM EST Office Visit Medical Office Building Surgery Sp[facility] Joint [address], [address] [place] [address] Arnav Ibarra MD [address] [facility] [address] [place] [address] documented as of this encounter [...] documented as of this encounter Care Teams Brick Chimney Builder Relationship Specialty Start Date End Date Naya Goodwin, CLINICAL LABORATORY SCIENTIST [facility] [place] [phone] PCP - General 07/11/20 Chelsey Mascorro [address] [place] [address] [place] [address] Referring Physician Gynecology 01/19/21 Yong Mata MD [id number] [place] [address] Surgeon Pain Medicine 05/12/21 Malena Burton APRN [address] [place] [address] Nurse Practitioner Urology 06/09/23 documented as of this encounter
--- NOTE | 2025-01-08 07:51 | CT_ITS ---
FINAL REPORT CLINICAL HISTORY: SCREENING former smoker quit 5 yrs ago 1.5 ppd x 50 yrs DLP 98.21 COMPARISON: none FINDINGS: CT CHEST LOW DOSE SCREENING HISTORY: Screening exam for lung cancer. DOSE: CTDI vol: 2.90 mGy, DLP: 98.21 mGy*cm TECHNIQUE: Axial CT without IV contrast administration using low dose protocol. This study was performed with techniques to keep radiation doses as low as reasonably achievable, (ALARA). Individualized dose reduction techniques using automated exposure control or adjustment of mA and/or kV according to the patient's size were employed. No acute lung disease is present. 3 mm subpleural nodule posterior right upper lobe. Left lung clear. Emphysematous changes are noted. No pleural or pericardial effusion is seen. No adenopathy or mass lesion is present. IMPRESSION: 3 mm right upper lobe nodule. LUNG RADS CATEGORY 2 RECOMMENDATION: 12 month LDCT follow up Reviewed, Interpreted and Dictated by Lolly Navarrete MD Transcribed by Krystyna Mendoza Authenticated and [facility]
--- NOTE | 2025-01-08 07:51 | MM_ITS ---
PROCEDURE INFORMATION: Exam: MG Bilateral Screening 3D Mammography Exam date and time: 01/08/2025 8:01 AM Age: 64 years old Clinical indication: Screening examination. Her maternal grandmother and maternal great grandmother had breast cancer. TECHNIQUE: Imaging protocol: Bilateral Screening tomosynthesis and 2D mammography including computer-aided detection (CAD) when performed. COMPARISON: 1. MG MM DIG SCREENING MAMM BI W/CAD 11/01/2023 2:49 PM 2. MG MM DIG SCREENING MAMM BI W/CAD 10/16/2021 7:53 AM 3. MG MM DIG SCREENING MAMM BI W/CAD 10/08/2020 1:01 PM FINDINGS: MAMMOGRAPHY: Breast composition: There are scattered areas of fibroglandular density. Mass: None. Architectural distortion: None. Calcifications: No suspicious calcifications. Asymmetric density: None. Skin thickening: None. Axillary adenopathy: None. IMPRESSION: No mammographic evidence of malignancy. Annual screening is recommended unless otherwise clinically indicated. ASSESSMENT: BI-RADS Category 1: Negative.
--- OUTSIDE RECORDS SUMMARY | 2025-01-08 07:52 | XMS_ITS | Continuity of Care Document ---
Author Organization [place] [employer] [facility] Address [address] [place] [address] Assessment Encounter Date Assessment Date Assessment LastModified by Organization Details LastModified Time 12/19/2024 12/19/2024 Luna Foreman presents with chronic vertigo persisting for months, accompanied by right ear pain, fullness, and neck stiffness. Recent ER evaluation showed normal bloodwork and CTA of brain/neck. Current examination revealed clear left ear canal with translucent eardrum, while right ear examination elicited significant pain without abnormality noted. Meclizine provides temporary symptom relief. Assessment suggests possible Meniere's disease. Plan includes refilling meclizine and Flonase, [facility] referral to [facility] for [facility], and continuing muscle relaxers for neck stiffness. Not available 12/29/2024 15:47:48 Plan of Treatment Reminders Order Date Submit Date Provider Last Modified By Organization Details Last Modified Time Details Appointments None record ed. Lab None record ed. Referral otolar tee herrera referr al 2024 025 [email or web address] on [facility], [address], [place], [address], 08:04:53 Procedures None record ed. Surgeries None record ed. Imaging LDCT, chest, for lung cancer screen ing - same day as mammo [address] [facility], [address], [place], [address], 09:18:28 MAMMO, screen ing, digita l, bilate ral - same day as LDCT [email or web address] (Scheduling), [address], [place], [address], 09:18:03 Medication Orders mecliz ine 25 mg tablet 2024 [facility], [address] [place] [address], [address], 10:07:37 flutic asone propio ancelmo 50 mcg/ac tuatio n nasal spray, suspen frandy 2024 [facility], [address] [place] [address], [address], 14:16:07 flucon azole 150 mg tablet 2024 [facility], [address] [place] [address], [address], 12:13:28 Patient TargetsNo targets recorded. Patient InstructionsNo instructions recorded. 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 [address], [place], [address], 12/17/2024 09:08:23 12/15/19 25 12/14/2024 CT, angio gram, neck, w/ contr ast No observ ation record ed. [address], [place], [address], 12/17/2024 09:08:06 12/15/1912/14/2024 CT, angio gram, head, w/wo contr ast No observ ation record ed. [facility] [address], [place], [address], 12/17/2024 09:07:32 12/15/1912/14/2024 elect rocar diogr am, routi ne ECG, 12 leads min No observ ation record ed. [facility] [address], [place], [address], 12/17/2024 09:07:13 Result Notes None recorded. Problems Name Problem SNOMED Code Status Onset Date Resolution Date Notes Provider Name and Address Organization Details Recorded Time Major depressi on, single episode 74761084 Completed 201605/19/2017 Problem Code: F32.9; Problem Code Type: ICD-10; Not Available [facility] 2 22:26:38 Moderate recurren t major depressi on 49208470 Completed 201611/26/2018 Problem Code: F33.1; Problem Code Type: ICD-10; Not Available [facility] 2 22:26:38 Lumbosac ral radiculo aiden 1020861 Completed 201611/17/2017 Problem Code: M54.16; Problem Code Type: ICD-10; Not Available [facility] 2 22:26:44 Low back pain 006080987 Completed 201611/17/2017 Problem Code: 724.2; Problem Code Type: ICD-9; Naya Goodwin APRN [address] [place] [address], [address] , [facility] [employer] 4 08:40:49 Chronic obstruct mitesh pulmonar y disease 59288947 Completed 201607/11/2020 Problem Code: 496; Problem Code Type: ICD-9; Not Available [facility] 2 22:27:12 Influenz a 0506216 Completed 201704/08/2017 Problem Code: J10.1; Problem Code Type: ICD-10; MARY RANDLEELIZABETH dunn, [employer] 2 11:49:03 Influenz a with non-resp iratory manifest ation 62842673 Completed 201704/08/2017 Problem Code: 487.8; Problem Code Type: ICD-9; Not Available [facility] 2 22:27:11 Generali zed anxiety disorder 90133349 Completed 201708/17/2017 Problem Code: F41.1; Problem Code Type: ICD-10; Not Available [facility] 22:26:38 Gastroes ophageal reflux disease without esophagi tis 037987164 Completed 201711/17/2021 MARY RAZIAELIZABETH dunn, [employer] 2 11:49:03 Gastro-e sophagea l reflux disease with esophagi tis 359912761 Active 2017 Problem Code: K21.0; Problem Code Type: ICD-10; Not Available [facility] 22:27:00 Gastroes ophageal reflux disease 731415795 Completed 201707/11/2020 Problem Code: 530.81; Problem Code Type: ICD-9; Not Available [facility] 22:27:07 Moderate recurren t major depressi on 07375415 Active 2017 Problem Code: F33.1; Problem Code Type: ICD-10; Not Available [facility] 22:26:38 Chronic post-tra umatic stress disorder 411669352 Completed 201708/19/2017 Problem Code: F43.12; Problem Code Type: ICD-10; Not Available [facility] 22:26:38 Post-tra umatic stress disorder 79247455 Active 2017 Problem Code: F43.10; Problem Code Type: ICD-10; Not Available [facility] 22:26:39 Sleep behavior finding 771427336 Completed 201711/17/2017 Not Available [facility] 2 22:26:39 Chronic pain syndrome 130973865 Active 2017 Problem Code: G89.4; Problem Code Type: ICD-10; Not Available [facility] 22:26:39 Sarah smiley Completed 201711/17/2017 MARY dunn [employer] 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 66192963 Completed 201707/11/2020 Problem Code: 053.12; Problem Code Type: ICD-9; Not Available [facility] 22:27:02 Organic sleep disorder 352851947 Completed 201711/17/2017 Problem Code: 327.8; Problem Code Type: ICD-9; Not Available [facility] 22:27:06 Asthenia 17718609 Completed 201711/17/2017 Problem Code: R53.1; Problem Code Type: ICD-10; Not Available [facility] 22:27:08 Malaise and fatigue 099753425 Completed 201711/17/2017 Problem Code: 780.79; Problem Code Type: ICD-9; Not Available [facility] 22:27:09 Hyperlip idemia ezequiel smilye Completed 201711/17/2017 Problem Code: V77.91; Problem Code Type: ICD-9; Not Available [facility] 2 22:27:09 Herpesvi uzma infectio n 82359609 Completed 201711/26/2018 Problem Code: A60.09; Problem Code Type: ICD-10; Not Available [facility] 22:26:37 Genital herpes simplex 74341957 Completed 201707/11/2020 Problem Code: 054.19; Problem Code Type: ICD-9; Not Available [facility] 22:27:01 Acute sinusiti s 29704046 Completed 201712/01/2017 Problem Code: J01.90; Problem Code Type: ICD-10; MARY dunn, [employer] 11:49:03 Otitis externa 4585970 Completed 201702/14/2018 Problem Code: H60.339; Problem Code Type: ICD-10; Not Available [facility] 22:26:39 Acute sinusiti s 39697200 Completed 201701/02/2018 Problem Code: J01.90; Problem Code Type: ICD-10; MARY dunn, [employer] 11:49:03 Nausea and vomiting 26531637 Completed 201702/14/2018 Problem Code: R11.2; Problem Code Type: ICD-10; Not Available [facility] 22:26:48 Acute swimmer' s ear Completed 201702/14/2018 Problem Code: 380.12; Problem Code Type: ICD-9; Not Available [facility] 22:27:04 Nausea 974087807 Completed 201811/26/2018 Problem Code: R11.0; Problem Code Type: ICD-10; Not Available [facility] 22:26:47 Generali zed abdomina l pain 158095439 Completed 201811/26/2018 Problem Code: R10.84; Problem Code Type: ICD-10; Not Available [facility] 22:26:46 Nausea and vomiting 03303934 Completed 201811/26/2018 Problem Code: R11.2; Problem Code Type: ICD-10; Not Available [facility] 22:26:47 Abdomina l bloating 399182097 Completed 201811/17/2021 Problem Code: R14.0; Problem Code Type: ICD-10; MARY dunn, [employer] 11:49:02 Generali zed anxiety disorder 32433851 Active 2018 Problem Code: F41.1; Problem Code Type: ICD-10; Not Available [facility] 09/05/202 2 22:26:38 Chronic post-tra umatic stress disorder 554602573 Completed 201811/26/2018 Problem Code: F43.12; Problem Code Type: ICD-10; Not Available [facility] 2 22:26:38 Acute sinusiti s 81627484 Completed 201811/26/2018 Problem Code: J01.90; Problem Code Type: ICD-10; MARY dunn, [employer] 2 11:49:03 Onycholy sis 68195026 Completed 201811/26/2018 Problem Code: L60.1; Problem Code Type: ICD-10; Not Available [facility] 22:26:44 Renal angle tenderne ss 796540725 Completed 201811/17/2021 Problem Code: R10.821; Problem Code Type: ICD-10; MARY dunn, [employer] 2 11:49:02 Dehydrat ion 33916921 Completed 201811/26/2018 Problem Code: E86.0; Problem Code Type: ICD-10; Not Available [facility] 2 22:26:38 Low blood pressure 12530032 Completed 201811/26/2018 Problem Code: I95.9; Problem Code Type: ICD-10; Naya Goodwin, [employer] [address] [place] [address], [address] , [employer] 5 15:57:42 Screenin g mammogra phy Completed 201811/26/2018 Problem Code: Z12.31; Problem Code Type: ICD-10; MARY dunn, [employer] 2 11:49:03 Influenz a vaccine needed 47968667277 06 Completed 201811/17/2021 Problem Code: Z23; Problem Code Type: ICD-10; MARY CANTOR null, [employer] 2 11:49:02 Snoring 26584786 Completed 201809/24/2019 Problem Code: R06.83; Problem Code Type: ICD-10; Not Available [facility] 2 22:26:46 Hemorrho ids 92872043 Completed 201809/24/2019 Problem Code: K64.9; Problem Code Type: ICD-10; Not Available [facility] 2 22:26:43 Acute sinusiti s 99603285 Completed 201809/04/2019 Problem Code: J01.90; Problem Code Type: ICD-10; MARY MYNEAR null, [employer] 2 11:49:03 General examinat ion of patient Completed 201907/11/2020 MARY MYNEAR null, [employer] 2 11:49:03 Body mass index 20-24 - normal 903115658 Active 2019 Not Available [facility] 2 22:26:59 Low blood pressure 12435304 Completed 201911/06/2019 Problem Code: I95.9; Problem Code Type: ICD-10; Naya Goodwin, [employer] [address] [place] [address], [place], [address] , [employer] 5 15:57:42 Function al diarrhea 37207577 Completed 201911/06/2019 Problem Code: K59.1; Problem Code Type: ICD-10; Not Available [facility] 2 22:26:42 Influenz a 9316551 Completed 201911/17/2021 Problem Code: J10.1; Problem Code Type: ICD-10; MARY MYNEAR null, [employer] 2 11:49:03 Pyrexia of unknown origin 1886168 Completed 201909/04/2019 Problem Code: R50.9; Problem Code Type: ICD-10; MARY MYNEAR null, [employer] 2 11:49:03 Nausea 275561376 Completed 201909/04/2019 Problem Code: R11.0; Problem Code Type: ICD-10; Not Available [facility] 2 22:26:47 Acute sinusiti s 86358242 Completed 201909/24/2019 Problem Code: J01.90; Problem Code Type: ICD-10; MARY RANDLEJAYESHR null, [employer] 2 11:49:03 Vitamin D deficien cy 78787463 Active 2019 Problem Code: E55.9; Problem Code Type: ICD-10; Not Available [facility] 2 22:26:38 Dysplasi a of vulva 818355872 Completed 201908/31/2021 Problem Code: N90.3; Problem Code Type: ICD-10; Not Available [facility] 2 22:26:45 Screenin g mammogra phy Completed 201911/06/2019 Problem Code: Z12.31; Problem Code Type: ICD-10; MARY RAZIANEAR null, [employer] 2 11:49:03 Current drug user 412153476 Completed 201911/06/2019 Problem Code: Z79.899; Problem Code Type: ICD-10; Naya Goodwin, NATALIE [address] [place] [address], [address] , [employer] 4 08:41:04 Acute pansinus itis 6479069 Completed 201911/17/2021 Problem Code: J01.41; Problem Code Type: ICD-10; MARY RAZIANEAR null, [employer] 2 11:49:03 Influenz a vaccine needed 41185673788 06 Completed 201912/25/2019 Problem Code: Z23; Problem Code Type: ICD-10; MARY RAZIANEAR null, [employer] 2 11:49:02 Low blood pressure 54927468 Completed 201908/31/2021 Problem Code: I95.9; Problem Code Type: ICD-10; Naya Goodwin APRN [address] [place], [address] , [employer] 5 15:57:42 Acute pansinus itis 4641044 Completed 201903/17/2020 Problem Code: J01.41; Problem Code Type: ICD-10; MARY dunn, [employer] 2 11:49:03 Tobacco dependen ce caused by cigarett es 92164426781 057240 Active 2020 Problem Code: F17.210; Problem Code Type: ICD-10; Not Available [facility] 2 22:26:38 General examinat ion of patient Completed 202007/11/2020 MRAY RANDLEJAYESHAlexi dunn, [employer] 2 11:49:03 Body mass index 20-24 - normal 497611979 Completed 202007/11/2020 Not Available [facility] 2 22:26:59 Dysuria 00381913 Completed 202011/17/2021 Problem Code: R30.0; Problem Code Type: ICD-10; MARY CANTOR null, [employer] 2 11:49:03 Acute sinusiti s 11143396 Completed 202011/17/2021 Problem Code: J01.90; Problem Code Type: ICD-10; MARY CANTOR null, [employer] 2 11:49:03 Lumbosac ral radiculo aiden 7881835 Active 2020 Problem Code: M54.16; Problem Code Type: ICD-10; Not Available [facility] 22:27:02 Irritabl e bowel syndrome 09715418 Active 2020 Problem Code: K58.2; Problem Code Type: ICD-10; Naya Goodwin APRN [address] [place], [address] , [employer] 5 16:08:54 Screenin g mammogra phy Completed 202011/17/2021 Problem Code: Z12.31; Problem Code Type: ICD-10; MARY MYELIZABETH null, [employer] 2 11:49:03 Ingrowin g nail 304198924 Completed 202008/31/2021 Problem Code: L60.0; Problem Code Type: ICD-10; Not Available [facility] 22:26:43 Disorder of upper respirat ory system 569188623 Completed 202011/17/2021 Problem Code: J06.9; Problem Code Type: ICD-10; MARY RAZIANEAR null, [employer] 2 11:49:03 Otogenic otalgia 41329575 Completed 202012/04/2021 LYNDSEY BARTLETT null, [employer] 2 08:50:49 Allergic rhinitis 97761043 Completed 202011/17/2021 Problem Code: J30.9; Problem Code Type: ICD-10; MARY MYNEAR null, [employer] 2 11:49:03 Influenz a vaccine needed 14892820344 06 Completed 202008/31/2021 Problem Code: Z23; Problem Code Type: ICD-10; MARY RAZIANEAR null, [employer] 2 11:49:02 Benign paroxysm al position al vertigo or nystagmu s 882061504 Completed 202111/17/2021 MARY MYNEAR null, [employer] 2 11:49:03 General examinat ion of patient Completed 202111/17/2021 MARY MYNEAR null, [employer] 2 11:49:03 Acute sinusiti s 27398501 Completed 202108/31/2021 Problem Code: J01.90; Problem Code Type: ICD-10; MARY RANDLENEAR null, [employer] 11:49:03 Dizzines s and giddines s 298307640 Completed 202108/31/2021 Problem Code: R42; Problem Code Type: ICD-10; MARY RANDLENEAR null, [employer]. 11:49:03 Headache 40126539 Completed 202111/17/2021 Problem Code: R51; Problem Code Type: ICD-10; MARY RANDLENEAR null, [employer] 11:49:03 Chronic fatigue syndrome 61678809 Completed 202108/31/2021 Problem Code: R53.82; Problem Code Type: ICD-10; Not Available [facility] 22:26:51 Exposure to SARS-CoV -2 Completed 202111/17/2021 Problem Code: Z20.822; Problem Code Type: ICD-10; MARY RANDLENEAR null, [employer] 11:49:03 Dizzines s and giddines s 916497341 Completed 202111/17/2021 Problem Code: R42; Problem Code Type: ICD-10; MARY RANDLENEAR null, [employer] 11:49:03 Acute non-supp urative serous otitis media 904132413 Completed 202111/17/2021 Problem Code: H65.01; Problem Code Type: ICD-10; MARY RAZIANEAR null, [employer]. 11:49:03 Influenz a 0615175 Completed 202108/31/2021 Problem Code: J10.1; Problem Code Type: ICD-10; MARY RAZIANEAR null, [employer]. 11:49:03 Choleste rol screenin g Completed 202108/31/2021 MARY dunn, [employer] 2 11:49:36 Low blood pressure 55050595 Completed 202108/31/2021 Problem Code: I95.9; Problem Code Type: ICD-10; Naya Goowdin APRN [address] [place] [address], [address] , [employer] 5 15:57:42 Pyrexia of unknown origin 4527629 Completed 202111/17/2021 Problem Code: R50.9; Problem Code Type: ICD-10; MARY dunn, [employer] 2 11:49:03 Tick-bor ne relapsin g fever 16897691 Completed 202111/17/2021 Problem Code: A68.1; Problem Code Type: ICD-10; MARY dunn, [employer] 2 11:49:02 Candidia sis of vagina 47130292 Active 2024 Naya Goodwin APRN [address] [place] [address], [address] [place] [address] , [employer] 5 10:26:24 Cobalami n deficien cy 194269377 Active 2024 Naya Goodwin APRN [address] [place] [address], [address] [place] [address] , [employer] 5 10:28:44 Vertigo 571575028 Active 2024 Naya Goodwin APRN [address] [place] [address], [address] , [employer] 5 10:06:33 Chronic vertigo 23896044476 105 Active 2024 Naya Goodwin APRN [address] [place] [address], [address] , [employer] 5 16:48:18 Problem Notes None recorded. Procedures Surgical History Date Name Laterality Status Provider Name and Address Organization Details Recorded Time 11/01/19 24 Most Recent Mammogram completed [employer] 12/12/2023 11:29:34 09/29/19 23 Date of Last Pap Smear completed [employer] 04/04/2023 14:50:35 04/05/19 23 Suture/Staple removal completed Naya Goodwin, NATALIE [address] [place], [address], [employer] 04/05/2022 09:45:46 03/25/19 21 Tlh uterus 250 g or less completed Not Available [facility] 11/03/2021 22:56:26 06/07/19 19 cholecystectomy completed Not Available [facility] 11/03/2021 22:56:26 Hysterectomy completed [employer] 11/17/2021 11:54:15 Appendectomy completed [facility] 11/17/2021 11:54:25 Imaging Results None recorded. Procedure Notes None recorded. Medical Equipment None Reported. Allergies Allergen ID Allergen Name Allergen Category Reaction Reaction Severity Criticality Documentation Date Start Date Code Code System Note Provider Name and Address Organization Details Recorded Time 34195 Product containin g penicilli n (product) medicatio n Not available Not available Not available 11/03/2021 59587 8001 SNOMED LYNDSEY BARTLETT mona [employer] 2 08:48:34 82553 sulfameth oxazole medicatio n Not available Not available Not available 11/03/2021 13546 RxNorm Not Available [facility] 2 22:57:14 90301 Chantix medicatio n Not available Not available Not available 11/03/2021 39812 0 RxNorm Not Available [facility] 2 22:57:14 Medications Name Sig Start Date [...] Not Available methocarbam ol 500 mg tablet TAKE 2 TABLETS BY MOUTH every 8 hours NEEDED FOR muscle pain AND spasm active Not Available Not Available No t Available Bromfed DM 2 mg-30 mg-10 mg/5 [...] tablet TAKE 1 TABLET BY MOUTH every WEEK active Not Available Not Available No [...] MOUTH every 8 hours NEEDED FOR NAUSEA 01/07 completed Not Available Not Available Not Available phenazopyri dine 200 mg tablet Take [...] Not Available Not Available Not Available dextrometho jamie-jazminef enesin 10 mg-100 mg/5 mL oral syrup [...] 1 TABLET BY MOUTH 3 TIMES DAILY NEEDED FOR vertigo active Not Available Not Available [...] MOUTH as directed PER package instructi ons 01/07 completed Not Available Not Available Not Available [...] propionate 50 mcg/actuati on nasal spray,suspe nsion SPRAY 1 SPRAY in each NOSTRIL 2 times PER DAY] active Not Available Not Available No t [...] 1 tablet every day by oral route at bedtime, for mood. 2024 active Not Available Not Available Not Avai lable escitalopra m 20 mg tablet TAKE ONE TABLET BY MOUTH ONCE DAILY 01/07 completed Not Available Not Available Not Available Premarin 0.625 mg/gram vaginal cream Apply [...] and Address Organization Details Last Updated DateTime 157.48 cm 24.6 kg/m2 65911.5 3 g 96.7 [degF] 107 /min 94 % 94 % 89/62 mm[Hg] MARY CANTOR [employer] 5 10:03:59 Social History Question Answer Notes LastModified by Organizat ion Details LastModified Time Tobacco Smoking Status Former Smoker LYNDSEY dunn [employer] 12/04/2021 08:51:44 Do You Have An Advance [...] Or The Highest Degree You Have Received? [id number] Information not available 11/17/2021 When Did You Quit Smoking? 1-5yearssinc elastcigaret te Information not available 11/17/2021 Are There Any Guns Present In Your Home? No Information not available 11/17/2021 Do You Have A Medical Power Of Acid Extractor? No Information not available 11/17/2021 What Was The Date Of Your Most Recent Tobacco Screening? 01/07/2025 Information not available 01/07/2025 What Is Your Current Pack Years? 30ormorepack [...] Restrictions? No Information not available 11/17/2021 Sex: Unknown Functional Status Question Answer Note [...] anxious, or unable to sleep at night)? [id number] [email or web address] Information not available 02/27/2024 Do you have difficulty concentrating, remembering or making decisions? No Information no t available 11/17/2021 Family History Relationship Description Onset Age of this Age Resolved Age Notes LastModified by Organization Details LastModified Time Father No current problems or disability [email or web address] Not available 09:44:05 Mother No current problems or disability [email or web address] Not available 09:44:05 Medical History Condition Response Emergency room visit since last appointm ent. N Acid Reflux (GERD) Y Hospitalizations N Osteoporosis Y Gynecological History Statement/Question Response Date of Last Pap Smear 09/28/2022 Most Recent Mammogram 11/01/2023 Obstetrics History GPAL:G 0 P 0 0 0 0 Immunizations Vaccine Type Date Status Note Provider Medardo kat and Address Organization Details Recorded Time Influenza, split virus, quadrivalent, PF 3 completed Allegra Stephens, NATALIE [address] [place], [address], [facility] [employer], [facility]. 12/03/2022 10:26:06 COVID-19, mRNA, LNP-S, PF, 100 mcg/0.5mL dose or 50 mcg/0.25mL dose 1 completed MARY CANTOR null, [employer] 04/05/2022 09:07:25 COVID-19, mRNA, LNP-S, PF, 100 mcg/0.5mL dose or 50 mcg/0.25mL dose 1 completed MARY RANDLENEAAlexi null, [employer] 04/05/2022 09:07:25 Influenza, split virus, quadrivalent, preservative 8 completed Not Available [facility] 11/03/2021 22:57:21 Influenza, split virus, quadrivalent, PF 1 completed Not Available [facility] 11/03/2021 22:57:21 Influenza, split virus, quadrivalent, PF 0 completed Not Available [facility] 11/03/2021 22:57:22 Influenza, split virus, trivalent, preservative 7 completed Not Available [facility] 04/04/2023 14:24:12 Influenza, split virus, trivalent, preservative 9 completed Not Available [facility] 04/04/2023 14:24:12 Hep A, adult 8 completed Not Available [facility] 11/03/2021 22:57:23 Hep A, adult 9 completed Not Available [facility] 11/03/2021 22:57:23 COVID-19, mRNA, LNP-S, PF, caprice-sucrose, 30 mcg/0.3 mL 4 completed Gabrielle Butler null, [employer] 01/27/2024 16:27:56 Influenza, split virus, trivalent, PF 4 completed Naya Goodwin APRN [address] [place], [address], [employer] 12/12/2023 12:03:17 Influenza, split virus, quadrivalent, preservative 9 completed MARY MYNEAR null, [employer] 04/05/2022 09:07:25 Influenza, split virus, quadrivalent, preservative 6 completed MARY MYNEAR null, [employer] 04/05/2022 09:07:25 Influenza, MDCK, quadrivalent, PF 2 completed MARY MYNEAR null, [employer] 04/05/2022 09:07:25 COVID-19, mRNA, LNP-S, PF, 100 mcg/0.5mL dose or 50 mcg/0.25mL dose 2 completed MARY MYNEAR null, [employer] 04/05/2022 09:07:25 COVID-19, mRNA, LNP-S, PF, 100 mcg/0.5mL dose or 50 mcg/0.25mL dose 1 completed MARY MYNEAR null, [employer] 04/05/2022 09:07:25 Influenza, split virus, trivalent, PF 5 completed MARY MYNEAR null, [employer] 12/19/2024 10:54:02 Past Encounters Encounter ID Performer Location Encounter Start Date Encounter Closed Date Diagnosis/Indication Diagnosis SNOMED-CT Code Diagnosis ICD10 Code Diagnosis IMO Codes Diagnosis Note [id number] Naya Goodwin[address] [address] 11/26/2024 14:30:18 11/26/2024 15:38:16 Vertigo [id number] R42 [id number] Naya Goodwin [address] [address] 12/19/2024 09:37:34 12/19/2024 10:29:58 Vertigo [id number] R42 03335 Candidiasis of vagina 72 [id number] B37.31 Influenza vaccination given [id number] 9109 Z23 [id number] Screening mammography 24 393422 Z12.31 [id number] Ex-cigarette smoker 2810 62847 Z87.891 [id number] Quit smoking 4 years ago - needs LDCT Health Concerns Section Related Observation LastModified by Organization Detai ls LastModified Time None Recorded Concern Status LastModified by Organization Details LastModified Time None Recorded Payers Encounter Date Sequence Insurance Name Policy Number Policy Rhodes Covered Member ID Rhodes Member ID Guarantor Name 12/19/2024 1 [place]MEDICARE REPLACEMENT HMO) [id number] Luna Foreman [id number] Luna Foreman Notes Date Note Type Note Provider Name and Address Organization Details Recorded Time 12/19/2024 text/html ROS as noted in the HPI Chief ComplaintOngoing vertigo for months, right ear pain and fullness, neck stiffness, needs medication refills for meclizine and FlonaseHistory of Present IllnessLuna Foreman presents with ongoing vertigo that has persisted for months, accompanied by right ear pain and fullness. She reports that her right ear feels so full of something and experiences significant pain at times, describing a sensation like a line down through here on the right side of her neck. The vertigo symptoms are better than before but she continues to struggle, particularly noting that she has to be careful with head movements and position changes. She can tell when her meclizine is wearing off as symptoms return. She is able to drive but acknowledges she probably shouldn't be driving. She reports associated neck stiffness that has become problematic, though she notes having a history of back problems years ago and is uncertain if the current neck issues are related to her current condition.The patient recently visited the emergency department for evaluation of these symptoms. She reports that the ER physician performed blood work, which was unremarkable, and a CTA of her brain and neck, which was normal. When the ER physician examined her ear with an otoscope, she experienced significant pain that she had never experienced before, though the ER physician reported her ear appeared clear. The ER physician provided muscle relaxers for her neck stiffness and suggested she follow up if symptoms persisted.She reports improvement in that she is no longer vomiting and is able to eat, representing significant progress from her previous state. She has been adherent to her prescribed Flonase regimen and finds meclizine helpful for symptom management. She requests refills of both medications. She describes feeling something deep, deep down in her right ear and had her SO feel the area, though he could not detect any abnormality. Luna has a hx of anxiety, IBS, previous substance use disorder, and chronic pain issues. Naya Goodwin APRN [address] [place] [address], [place], [address], [facility] [employer] 12/29/2024 15:50:10 OBGyn Episode No OBEpisode recorded.
--- OUTSIDE RECORDS SUMMARY | 2025-01-08 07:52 | XMS_ITS | Data Portability ---
Author Organization [facility] Address [address] [place] [address] Care Team Providers Care Summer Law Clerk Name Role Phone Vine Primary Care Provider Assessment Encounter Date Assessment Date Assessment LastModified by Organization Details LastModified Time 05/07/2019 05/07/2019 BSE reviewed and recommended . Reviewed calcium needs, exercise, and prevention of osteoporosis . Periodic colonoscopy screening recommended . Reviewed normal menopause and menopausal symptoms . Mammogram recommended yearly . [email or web address] Not available 05/07/2019 12:43:18 Plan of Treatment [...] 2019 020 [facility], [address], [place], [address], 0 13:10:15 pathology study 2019 020 [facility], [address], [address], [place], [address], 0 14:08:13 pap, IG + CT/NG + [...] [address], [address], [place], [address], 0 20:07:51 urinalysis , dipstick 2018 019 [email or web address] [facility], [address] [place] [address] , [place], [address], 9 11:28:54 culture, urine 2018 019 [facility], [address], [address], [place], [address], 9 06:10:13 urinalysis , complete 2018 019 [facility], [address], [address], [place], [address], 9 06:10:12 pap, IG + CT/NG + reflex HPV (16+18) - 02/10/18 ascus + hpv; 09/12/17 ascus + hpv; 02/08/17 wnl pos hpv (+16); 02/03/16 wnl pos hpv; 11/19/10wnl 2018 019 [facility], [address], [address], [place], [address], 9 12:10:00 Referral None recorded. Procedures None recorded. Surgeries None recorded. Imaging MAMMO, screening, bilateral 2018 [facility] ([facility]), [address], [place], [address], 0 09:27:00 Medication Orders Fosamax 70 mg tablet 2019 INTERFACE [facility], [address] [place], [address], 0 16:22:24 Vistaril 25 mg capsule 2019 elisrene [facility], [address] [place], [address], 0 20:58:26 Premarin 0.625 mg/gram vaginal cream 2019 INTERFACE [facility], [address] [place], [address], 0 13:32:28 clotrimazo le-betamet hasone 1 %-0.05 % topical cream 2018 019 [email or web address] [facility], [address] [place], [address], 0 13:32:33 Premarin 0.625 mg/gram vaginal cream 2018 019 [facility], [address] [place], [address], 9 11:30:32 Patient TargetsNo targets recorded. Patient Instructions Encounter Date Encounter Id Patient Instructions Last Modified By Organization Details Last Modified Time 11/02/2018 [id number] Discussed the spectrum of abnormal pap smears, [...] Procedure reviewed in detail. Written information provided [email or web address] Not available 11/02/2018 10:50:44 05/07/2019 [id number] Quitting Tobacco : Care Instructions [email or web address] Not available 05/07/2019 13:33:30 Reason for Referral None Reported. Results Created Date Observation Date Name Description Value Unit Range Abnormal Flag Note LastModifiedBy Organization Detail LastModifiedTime 11/03/1911/03/2018 urina lysis , compl ete specific gravity 1.009 1.005- 1.030 Not Available [facility] ([facility]) [address] [place], [address], 11/04/2018 06:10:12 11/03/1911/03/2018 urina lysis , compl ete pH 5.5 5.0-7. 5 Not Available [facility] ([facility]) [address] [place], [address], 11/04/2018 06:10:12 11/03/1911/03/2018 urina lysis , compl ete urine-color Yellow yellow Not Available [facility] ([facility]) [address] [place], [address], 11/04/2018 06:10:12 11/03/1911/03/2018 urina lysis , compl ete appearance Clear clear Not Available [facility] ([facility]) [address] [place], [address], 11/04/2018 06:10:12 11/03/1911/03/2018 urina lysis , compl ete WBC esterase Negati ve negati ve Not Available [facility] ([facility]) [address] [place], [address], 11/04/2018 06:10:12 11/03/1911/03/2018 urina lysis , compl ete protein Negati ve negati ve/tra ce Not Available [facility] ([facility]) [address] [place], [address], 11/04/2018 06:10:12 11/03/1911/03/2018 urina lysis , compl ete glucose Negati ve negati ve Not Available [facility] ([facility]) [address] [place], [address], 11/04/2018 06:10:12 11/03/1911/03/2018 urina lysis , compl ete ketones Negati ve negati ve Not Available [facility] ([facility]) [address] [place], [address], 11/04/2018 06:10:12 11/03/1911/03/2018 urina lysis , compl ete occult blood Negati ve negati ve Not Available [facility] ([facility]) [address] [place], [address], 11/04/2018 06:10:12 11/03/1911/03/2018 urina lysis , compl ete bilirubin Negati ve negati ve Not Available [facility] ([facility]) [address] [place], [address], 11/04/2018 06:10:12 11/03/1911/03/2018 urina lysis , compl ete urobilinogen ,semi-qn 0.2 mg/dL 0.2-1. 0 Not Available [facility] ([facility]) [address] [place], [address], 11/04/2018 06:10:12 11/03/1911/03/2018 urina lysis , compl ete nitrite, urine Negati ve negati ve Not Available [facility] ([facility]) [address] [place], [address], 11/04/2018 06:10:12 11/03/1911/03/2018 urina lysis , compl ete microscopic examination Commen t Micro scopi c not indic ated and not perfo rmed. Not Available [facility] ([facility]) [address] [facility], [place], [address], 11/04/2018 06:10:12 11/03/1911/03/2018 cultu re, urine urine culture, routine Final report Not Available [facility] ([facility]) [address] [facility], [place], [address], 11/04/2018 06:10:13 11/03/1911/03/2018 cultu re, urine result 1 No growth Not Available [facility] ([facility]) [address] [facility], [place], [address], 11/04/2018 06:10:13 11/03/1911/06/2018 pap, IG + CT/NG + refle x HPV (16+1 8) chlamydia, nuc. acid amp Negati ve negati ve Not Available [facility] ([facility]) [address] [facility], [place], [address], 11/08/2018 12:10:00 11/03/1911/06/2018 pap, IG + CT/NG + refle x HPV (16+1 8) gonococcus, nuc. acid amp Negati ve negati ve Not Available [facility] ([facility]) [address] [facility], [place], [address], 11/08/2018 12:10:00 11/03/19 19 11/07/2018 pap, IG + CT/NG + refle x HPV (16+1 8) HPV, high-risk Positi ve negati ve abnormal This high- risk HPV test detec ts thirt een high- risk types (16/1 8/31/ 33/35 /39/4 5/51/ 52/56 /58/5 9/68) witho ut diffe renti ation . Not Available [facility] ([facility]) [address] [facility], [place], [address], 11/08/2018 12:10:00 11/03/19 11/08/2018 pap, IG + CT/NG + refle x HPV (16+1 8) diagnosis: Ashley balderas abnormal EPITH ELIAL CELL ABNOR MALIT Y. ATYPI LILLIE SQUAM OUS CELLS OF UNDET ERMIN ED SIGNI FICAN CE (ASC- US). Not Available [facility] ([facility]) [address] [place], [address], 11/08/2018 12:10:00 11/03/19 19 11/08/2018 pap, IG + CT/NG + refle x HPV (16+1 8) specimen adequacy: Ashley t Satis facto ry for evalu ation . Endoc ervic al and/o r squam ous metap lasti c cells (endo cervi lillie compo nent) are prese nt. Not Available [facility] ([facility]) [address] [place], [address], 11/08/2018 12:10:00 11/03/19 19 11/08/2018 pap, IG + CT/NG + refle x HPV (16+1 8) clinician provided ICD10: Ashley balderas R30.0 R87.6 19 Z11.3 Not Available [facility] ([facility]) [address] [place], [address], 11/08/2018 12:10:00 11/03/19 19 11/08/2018 pap, IG + CT/NG + refle x HPV (16+1 8) performed by: Ashley Vallejo , Cytot echno logis t Not Available [facility] ([facility]) [address] [place], [address], 11/08/2018 12:10:00 11/03/1911/08/2018 pap, IG + CT/NG + refle x HPV (16+1 8) electronical ly signed by: [facility] Hospital[facility] Asher MD, Patho logis t Not Available [facility] ([facility]) [address] [place], [address], 11/08/2018 12:10:00 11/03/19 19 11/08/2018 pap, IG + CT/NG + refle x HPV (16+1 8) . . Not Available [facility] ([facility]) [address] [facility], [place], [address], 11/08/2018 12:10:00 11/03/1911/08/2018 pap, IG + CT/NG + refle x HPV (16+1 8) pathologist provided ICD10: Ashley balderas R87.6 10 Not Available [facility] ([facility]) [address] [facility], [place], [address], 11/08/2018 12:10:00 11/03/19 19 11/08/2018 pap, IG [...] ts do occur . Not Available [facility] ([facility]) [address] [facility], [place], [address], 11/08/2018 12:10:00 11/03/1911/08/2018 pap, IG + CT/NG + refle x HPV (16+1 8) test methodology: Ashley balderas This liqui d based ThinP rep(R ) pap test was scree vignesh with the use of an image guide essie montalvo. Not Available [facility] ([facility]) [address] [facility], [place], [address], 11/08/2018 12:10:00 11/03/19 19 11/02/2018 urina lysis , dipst ick Leukocytes Negati ve Not Available [facility] [address] [place] [address] , [place], [address], 11/02/2018 11:04:15 11/03/19 19 11/02/2018 urina lysis , dipst ick Nitrite negati ve Not Available [facility] [address] [place] [address] , [place], [address], 11/02/2018 11:04:15 11/03/19 19 11/02/2018 urina lysis , dipst ick Urobilinogen .2 Not Available [facility] [address] [place] [address] , [place], [address], 11/02/2018 11:04:15 11/03/19 19 11/02/2018 urina lysis , dipst ick Protein Negati ve Not Available [facility]/[address] , [place], [address], 11/02/2018 11:04:15 11/03/19 19 11/02/2018 urina lysis , dipst ick pH 8.5 Not Available [facility]/[address] , [place], [address], 11/02/2018 11:04:15 11/03/19 19 11/02/2018 urina lysis , dipst ick Blood Negati ve Not Available [facility] [address] [place] [address] , [place], [address], 11/02/2018 11:04:15 11/03/19 19 11/02/2018 urina lysis , dipst ick Specific Martha 1.015 Not Available [facility] [address] [place] [address] , [place], [address], 11/02/2018 11:04:15 11/03/19 19 11/02/2018 urina lysis , dipst ick Ketone Negati ve Not Available [facility] [address] [place] [address] , [place], [address], 11/02/2018 11:04:15 11/03/1911/02/2018 urina lysis , dipst ick Bilirubin Negati ve Not Available [facility] [address] [place] [address] , [place], [address], 11/02/2018 11:04:15 11/03/1911/02/2018 urina lysis , dipst ick Glucose Negati ve Not Available [facility] [address] [place] [address] , [place], [address], 11/02/2018 11:04:15 11/03/1911/02/2018 urina lysis , dipst ick Appearance Cloudy Not Available [facility] [address] [place] [address] , [place], [address], 11/02/2018 11:04:15 11/03/1911/02/2018 urina lysis , dipst ick Color Yellow Not Available [facility] [address] [place] [address] , [place], [address], 11/02/2018 11:04:15 05/07/19 20 05/08/2019 pap, IG + CT/NG + HR HPV + refle x HPV (16+1 8) chlamydia, nuc. acid amp Negati ve negati ve Not Available [facility] ([facility]) [address] [place], [address], 05/11/2019 20:07:51 05/07/1905/08/2019 pap, IG + CT/NG + HR HPV + refle x HPV (16+1 8) gonococcus, nuc. acid amp Negati ve negati ve Not Available [facility] ([facility]) [address] [facility], [place], [address], 05/11/2019 20:07:51 05/07/19 20 05/09/2019 pap, IG + CT/NG + HR HPV + refle x HPV (16+1 8) HPV, high-risk Positi ve negati ve abnormal This nucle ic acid ampli ficat ion high- risk HPV test detec ts thirt een high- risk types (16,1 8,31, 33,35 ,39,4 5,51, 52,56 ,58,5 9,68) witho ut diffe renti ation . Not Available [facility] ([facility]) [address] [facility], [place], [address], 05/11/2019 20:07:51 05/07/19 20 05/10/2019 pap, IG + CT/NG + HR HPV + refle x HPV (16+1 8) diagnosis: Commen t NEGAT DORIE FOR INTRA EPITH ELIAL LESIO N OR MALIG PURVI . THIS SPECI MEN WAS RESCR EENED PART OF OUR QUALI TY CONTR OL PROGR AM. Not Available [facility] ([facility]) [address] [facility], [place], [address], 05/11/2019 20:07:51 05/07/19 20 05/10/2019 pap, IG + CT/NG + HR HPV + refle x HPV (16+1 8) specimen adequacy: Commen t Satis facto ry for evalu ation . No endoc ervic al compo nent is ident ified . Not Available [facility] ([facility]) [address] [facility], [place], [address], 05/11/2019 20:07:51 05/07/19 20 05/10/2019 pap, IG + CT/NG + HR HPV + refle x HPV (16+1 8) clinician provided ICD10: Commen t N87.0 Not Available [facility] ([facility]) [address] [facility], [place], [address], 05/11/2019 20:07:51 05/07/19 20 05/10/2019 pap, IG + CT/NG + HR HPV + refle x HPV (16+1 8) performed by: Ashley negrete, Cytot echno logis t (ASCP ) Not Available [facility] ([facility]) [address] [place], [address], 05/11/2019 20:07:51 05/07/19 20 05/10/2019 pap, IG + CT/NG + HR HPV + refle x HPV (16+1 8) QC reviewed by: Ashley howelle, Super visor y Cytot echno logis t (ASCP ) Not Available [facility] ([facility]) [address] [place], [address], 05/11/2019 20:07:51 05/07/19 20 05/10/2019 pap, IG + CT/NG + HR HPV + refle x HPV (16+1 8) . . Not Available [facility] ([facility]) [address] [place], [address], 05/11/2019 20:07:51 05/07/19 20 05/10/2019 pap, IG [...] ts do occur . Not Available [facility] ([facility]) [address] [facility], [place], [address], 05/11/2019 20:07:51 05/07/19 20 05/10/2019 pap, IG + CT/NG + HR HPV + refle x HPV (16+1 8) test methodology: Ashley balderas This liqui d based ThinP rep(R ) pap test was scree vignesh with the use of an image guide essie jiménez Not Available [facility] ([facility]) [address] [place], [address], 05/11/2019 20:07:51 05/07/19 20 05/11/2019 pap, IG + CT/NG + HR HPV + refle x HPV (16+1 8) HPV genotype, 16 Positi ve negati ve abnormal Not Available [facility] ([facility]) [address] [place], [address], 05/11/2019 20:07:51 05/07/19 20 05/11/2019 pap, IG + CT/NG + HR HPV + refle x HPV (16+1 8) HPV genotype, 18 Negati ve negati ve Not Available [facility] ([facility]) [address] [facility], [place], [address], 05/11/2019 20:07:51 06/21/19 20 06/26/2019 patho logy study . Commen t Mater ial submi tted: . PART A: endoc ervix - ENDOC ERVIC AL CURET TAGE PART B: vulva - VULVA R BIOPS Y 5:00. Modif iers: 5:00 PART C: vulva - VULVA R BIOPS Y 7:00. Modif iers: 7:00 Not Available [facility] ([facility]) [address] [facility], [place], [address], 06/26/2019 14:08:12 06/21/1906/26/2019 patho logy study . Commen t Clini lillie histo ry: . 5:00; 7:00 Not Available [facility] ([facility]) [address] [place], [address], 06/26/2019 14:08:12 06/21/1906/26/2019 patho logy study . [...] GXA 06/24 1716 Local Not Available [facility] ([facility]) [address] [place], [address], 06/26/2019 14:08:12 06/21/19 20 06/26/2019 patho logy study . Commen t Yen hanson d: . Perico jones MD, Patho logis t Not Available [facility] ([facility]) [address] [place], [address], 06/26/2019 14:08:12 06/21/1906/26/2019 patho logy study . [...] AV 06/21 0733 Local Not Available [facility] ([facility]) [address] [place], [address], 06/26/2019 14:08:12 06/21/19 20 06/26/2019 patho logy study . Commen t Patho logis t provi ded ICD-1 0: N87.0 , D07.1 , D07.1 Not Available [facility] ([facility]) [address] [place], [address], 06/26/2019 14:08:12 06/21/19 20 06/26/2019 patho logy study . Commen t CPT . 22760 1, 17678 2, 89979 3 Not Available [facility] ([facility]) [address] [place], [address], 06/26/2019 14:08:12 01/10/2001/14/2020 pap, IG + HPV [...] NON-O RDERA BLE.* * Not Available [facility] ([facility]) [address] [facility], [place], [address], 01/17/2020 13:10:14 01/10/2001/16/2020 pap, IG + HPV diagnosis: Ashley balderas NEGAT DORIE FOR INTRA EPITH ELIAL LESIO N OR MALIG PURVI . REACT DORIE CELLU LAR GAMEZ ES AND/O R REPAI R ARE PRESE NT. Not Available [facility] ([facility]) [address] [facility], [place], [address], 01/17/2020 13:10:14 01/10/2001/16/2020 pap, IG + HPV specimen adequacy: Ashley t Satis facto ry for evalu ation . No endoc ervic al compo nent is ident ified . Not Available [facility] ([facility]) [address] [facility], [place], [address], 01/17/2020 13:10:14 01/10/2001/16/2020 pap, IG + HPV clinician provided ICD10: Ashley balderas N87.0 R87.8 10 Not Available [facility] ([facility]) [address] [facility], [place], [address], 01/17/2020 13:10:14 01/10/2001/16/2020 pap, IG + HPV performed by: Commen t Elvira y Thomp son, Cytot echno logis t (ASCP ) Not Available [facility] ([facility]) [address] [place], [address], 01/17/2020 13:10:14 01/10/2001/16/2020 pap, IG + HPV electronical ly signed by: Ashley jones MD, Patho logis t Not Available [facility] ([facility]) [address] [place], [address], 01/17/2020 13:10:14 01/10/2001/16/2020 pap, IG + HPV . . Not Available [facility] ([facility]) [address] [facility], [place], [address], 01/17/2020 13:10:14 01/10/2001/16/2020 pap, IG + HPV [...] ts do occur . Not Available [facility] ([facility]) [address] [facility], [place], [address], 01/17/2020 13:10:14 01/10/2001/16/2020 pap, IG + HPV test methodology: Ashley t This liqui d based ThinP rep(R ) pap test was scree vignesh with the use of an image guide essie jiménez Not Available [facility] ([facility]) [address] [place], [address], 01/17/2020 13:10:14 01/10/2001/17/2020 pap, IG + HPV HPV genotype, 16 Positi ve negati ve abnormal Not Available [facility] ([facility]) [address] [facility], [place], [address], 01/17/2020 13:10:14 01/10/2001/17/2020 pap, IG + HPV HPV genotype, 18 Negati ve negati ve Not Available [facility] ([facility]) [address] [facility], [place], [address], 01/17/2020 13:10:14 10/27/19 19 10/04/2018 MAMMO , scree anna marie, digit al, bilat eral No observ ation record ed. [email or web address] [facility] ([facility]) [address], [place], [address], 10/27/2018 08:26:35 Result Notes None recorded. 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 02/08/17 wnl pos hpv 16 (schedule d colpo) 03/10/17 ECC- MARYLOU-I and HPV changes of squamous cells. 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 pos margins. advise quit smoking f/u 6-12 months Radha Miller APRN [address], [place], [address], [place] - [facility] 0 17:06:37 Problem Notes None recorded. Procedures Surgical History Date Name Laterality Status Provider Name and Address Organization Details Recorded Time 03/19/19 21 robot assisted laparoscopic total hysterectomy completed Radha Miller APRN [address], [place], [address], [place] - [facility] 06/23/2020 14:32:45 03/19/19 21 excision of bilateral fallopian tubes and ovaries completed Radha Miller APRN [address], [place], [address], [place] - [facility] 06/23/2020 14:31:22 07/13/19 20 Vulvectomy simple partial completed Nedra Montero [place] - [facility] 08/20/2019 17:02:25 06/21/19 20 Vulvar Biopsy completed Chelsey Mascorro MD [address], [place], [address], [place] [facility] 06/21/2019 12:36:58 06/21/19 20 Colposcopy completed Chelsey Mascorro MD [address], [place], [address], [place] - [facility] 06/21/2019 12:33:47 06/04/19 20 Colposcopy cancelled Nedra Montero [place] - [facility] 06/01/2019 13:49:44 05/07/19 20 Date of Last Pap Smear completed Radha Miller APRN [address], [place], [address], [place] - [facility] 05/14/2019 10:01:53 10/05/19 19 Date of Last Mammogram completed Radha Miller APRN [address], [place], [address], [place] - [facility] 10/27/2018 08:26:14 05/09/19 19 Cholecystectomy, laparoscopic completed Nedra Montero [place] - [facility] 05/30/2018 14:55:50 04/21/19 19 LEEP Procedure completed Chelsey Mascorro MD [address], [place], [address], [place] - [facility] 04/21/2018 14:03:02 04/21/19 19 LEEP completed Nedra Montero [place] - [facility] 04/28/2018 15:52:44 03/30/19 19 Nerve surgery completed Chelsey Mascorro MD [address], [place], [address], [place] [facility] 04/21/2018 13:57:54 03/27/19 19 Colposcopy completed Radha Miller APRN [address], [place], [address], [place] [facility] 03/27/2018 15:46:12 03/27/19 19 Colposcopy completed Nedra Montero [place] - [facility] 04/28/2018 15:53:39 03/27/19 19 colposcopy completed Radha Miller APRN [address], [place], [address], [place] [facility] 03/29/2018 12:48:12 03/01/19 19 stimulation completed Shameka Shannon [place] - [facility] 11/02/2018 10:59:13 09/09/19 18 Most Recent Bone Density completed Radha Paul CHEESE PROCESSOR [address], [place], [address], [place] [facility] 09/11/2017 21:34:01 05/03/19 18 Date of Last Colonoscopy completed Radha Paul CHEESE PROCESSOR [address], [place], [address], [place] [facility] 03/02/2018 13:43:00 03/10/19 18 Colposcopy completed Radhanoman Miller APRN [address], [place], [address], [place] [facility] 03/10/2017 14:25:46 03/10/19 18 Colposcopy completed Radhanoman Miller APRN [address], [place], [address], [place] [facility] 03/17/2017 09:31:51 05/30/19 17 dental surgery completed Radha Miller APRN [address], [place], [address], [place] [facility] 11/08/2018 12:51:47 02/28/19 07 Unlisted px accessory sinus completed Radhanoman Miller CHEESE PROCESSOR [address], [place], [address], [place] [facility] 11/08/2018 12:51:39 03/26/18 98 [facility] 01/14/2016 11:38:30 02/28/18 91 Cyrosurgery of Cervix completed Radha Miller APRN [address], [place], [address], [place] [facility] 11/08/2018 12:51:57 06/10/18 84 Diagnostic Laparoscopy completed Nedra Montero [place] - [facility] 01/14/2016 11:38:04 02/28/18 71 tonsilectomy/dortoeo noids completed Shameka [place] - [facility] 02/10/2018 09:09:03 [facility] 01/14/2016 11:37:36 Imaging Results None recorded. Procedure Notes None recorded. Medical Equipment None Reported. Allergies Allergen ID Allergen Name Allergen Category Reaction Reaction Severity Criticality Documentation Date Start Date Code Code System Note Provider Name and Address Organization Details Recorded Time 75649 penicilli n V potassium medicatio n anaphylax is Not available Not available 12/05/20152007 5 RxNorm React ion: Anaph ylaxi s; Comme nt: Penic illin V Potinessa sium; Not Available [facility] 6 09:20:16 Medications Name Sig Start Date [...] Updated DateTime 05/07/2019 157.48 cm 23.4 kg/m2 27431.82 g 113/58 mm[Hg] Shameka Shannon [place] - [facility] 05/07/2019 13:02:58 Date Recorded Body height Body mass index (BMI) Body weight Systolic And Diastolic Provider Name and Address Organization Details Last Updated DateTime 06/21/2019 157.48 cm 23.8 kg/m2 99932.01 g 116/72 mm[Hg] Nedra Montero [place] - [facility] 06/21/2019 08:58:43 Date Recorded Body height Body mass index (BMI) Body weight Systolic And Diastolic Provider Name and Address Organization Details Last Updated DateTime 08/10/2019 157.48 cm 24.1 kg/m2 02038.19 g 118/72 mm[Hg] Nedra Montero [place] - [facility] 08/10/2019 14:25:52 Date Recorded Body height Body mass index (BMI) Body weight Systolic And Diastolic Provider Name and Address Organization Details Last Updated DateTime 11/02/2018 157.48 cm 25.4 kg/m2 79805.34 g 112/68 mm[Hg] Shameka Shannon [place] - [facility] 11/02/2018 11:03:35 Date Recorded Body height Body mass index (BMI) Body weight Provider Name and Address Organization Details Last Updated DateTime 01/10/2020 157.48 cm 23.6 kg/m2 40337.42 g Shameka Shannon [place] - [facility] 01/10/2020 15:58:37 Social History Question Answer Notes LastModified by Organizat ion Details LastModified Time Tobacco Smoking Status Current Every Day Smoker Nedra dunn [place] - [facility] 01/14/2016 11:39:41 Do You Have [...] Or The Highest Degree You Have Received? [id number] [email or web address] Information not available 02/10/2018 How Many Days Of Moderate To Strenuous Exercise, Like A Brisk Walk, Did You Do In The Last 7 Days? 1 [email or web address] Information not available 02/10/2018 On Those Days That You Engage In Moderate To Strenuous Exercise, How Many Minutes, On Average, Do You Exercise? 1 [email or web address] Information not available 02/10/2018 How Hard Is It For You To Pay For The Very Basics Like Food, Housing, Medical Care, And Heating? 1 [email or web address] Information not available 02/10/2018 Live Alone Or With Others? With Others Information not available 02/03/2016 What Was The Date Of Your Most Recent Tobacco Screening? 05/07/2019 [email or web address] Information not available 05/07/2019 How Many Children [...] not available 01/14/2016 General Stress Level Medium [email or web address] Information not available 05/07/2019 Do You Use Sunscreen Routinely? Yes Information not available 02/03/2016 On What Date Was Tobacco Cessation Counseling Provided? 05/07/2019 [email or web address] Information not available 05/07/2019 How Many Years Have You Smoked Tobacco? 40 Off And On [email or web address] Information not available 02/10/2018 Do You Have Difficulty Walking Or Climbing Stairs? No Information not available 02/03/2016 Sex: Female Functional Status Question Answer Note LastModified by Organizat ion Details LastModified Time What is your level of alcohol consumption? None Information not available 02/03/2016 Do you or have you ever used smokeless tobacco? Never used smokeless tobacco [email or web address] Information not available 11/02/2018 Are you currently employed? No Information not available 02/03/2016 Urinary incontinence assessment performed? Yes [email or web address] Information not available 02/10/2018 Are you able to walk independently without assistance or assistive devices? YESWOREST [email or web address] Information not available 02/10/2018 Do you have difficulty doing errands alone? No Information not available 02/03/2016 What is your occupation? disabled Information not available 01/14/2016 Do you have difficulty dressing, bathing, grooming, or toileting? No Information not available 02/03/2016 Do you or have you ever used e-cigarettes or vape? Never used electronic cigarettes [email or web address] Information not available 11/02/2018 What is your exercise level? None Information not available 02/03/2016 Mental Status Question Answer Note LastModified by Organization D etails LastModified Time Do you feel stressed (tense, restless, nervous, or anxious, or unable to sleep at night)? 1 [email or web address] Information not available 05/07/2019 Do you have [...] colitis N Cerebrovascular Disease N Depression N Guillain-[place] N Sleep Apnea N Aneurysm N Bronchitis [...] quadrivalent, preservative 7 completed Nedra Montero null, [place] - [facility] 02/08/2017 13:40:07 Influenza, split virus, quadrivalent, preservative 8 completed Shameka Shannon null, [place] - [facility] 02/10/2018 09:05:51 Influenza, split virus, quadrivalent, preservative 9 completed Shameka Shannon null, [facility] 05/07/2019 12:58:33 Influenza, split virus, quadrivalent, preservative 6 completed Not Available [facility] 03/17/2019 03:54:20 Past Encounters Encounter ID Performer Location Encounter Start Date Encounter Closed Date Diagnosis/Indication Diagnosis SNOMED-CT Code Diagnosis ICD10 Code Diagnosis IMO Codes Diagnosis Note [id number] [facility] [address] [place] [address] 11/22/2006 00:00:00 [id number] [facility] [address] [place] [address] 11/19/2010 00:00:00 [id number] NATALIE Almonte [employer] [address] [facility] [place] [address] 02/03/2016 10:57:19 02/03/2016 12:26:34 Routine gynecologic examination done 6997397642 9101 Z01.419 Depression screening 171 492754 Z13.89 Diet education 86621996 Z71.3 Counseling 497176806 Z71 .9 Exercise counseljohnathan quinones Patient encouraged to exercise 30 minutes 5 days a week. Examinatio n of blood pressure 346093797 Z01.30 Screening for malignant neoplasm of cervix 921253848 Z12.4 Pap Exam The patient underwent Pap smear screening in [facility] with ASCCP consensus guidelines . If [...] this plan. Administra tion of influenza vaccine 48615768 Z23 Patient presents for flu vaccinatio n today. No fever. No history of egg allergy. Administer ed as below. 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 Diet education 52921288 Z71.3 Counseling 005309706 Z71 .9 Exercise counsellin g. Patient encouraged to exercise 30 minutes 5 days a week. Examinatio n of blood pressure 543585932 Z01.30 HPV - Luci n papillomavirus test positive 112316243 R87.619 Screening for malignant neoplasm of cervix 951540213 Z12.4 Screening mammography 24 943894 Z12.31 Screening for malignant neoplasm of colon 686041121 Z12.11 Plans to have completed after the first of the year. Screening for malignant neoplasm of ovary 348759176 Z12.73 [id number] NATALIE Almonte [employer] [address] [place] [address] [place] [address] 02/10/2018 08:56:59 02/10/2018 10:47:03 Routine gynecologic examination done 8135850250 9101 Z01.419 Depression screening 171 085130 Z13.89 PHQ-9 completed today. Diet education 76575113 Z71.3 Counseling 992088106 Z71 .82 Exercise counsellin g. Patient encouraged to exercise 30 minutes 5 days a week. Examinatio n of blood pressure 446506383 Z01.30 HPV - Luci n papillomavirus test positive 428102108 R87.619 Screening for malignant neoplasm of cervix 118562692 Z12.4 R87.810 Patient advised that I will follow up with results. Screening mammography 24 347937 Z12.31 Screening for malignant neoplasm of colon 912158513 Z12.11 Pt had 05/2017 @ [facility] Vaginal dryness 39869431 N89.8 Viral screening 81543348 4 Z11.59 One time Hep C screening for individual s born between the years of 8615-5360. [id number] NATALIE Almonte [employer] [address] [place] [address] [place] [address] 03/10/2017 13:56:24 03/10/2017 14:27:42 HPV - Human papillomavirus test positive 834897107 R87.932 [id number] NATALIE Almonte [employer] [address] [place] [address] [place] [address] 09/12/2017 10:07:38 09/12/2017 11:09:03 HPV - Human papillomavirus test positive 192748951 R87.742 [id number] NATALIE Almonte [employer] [address] [place] [address] [place] [address] 05/07/2019 12:48:08 05/07/2019 15:17:23 Cervical intraepithelial neoplasia grade 1 001539987 N87.0 R87.810 Z11.3 PAP 2/3 after LEEP Routine gy necologic examination done 2679321223 9101 Z01.419 Depression screening 171 147459 Z13.89 PHQ-9 completed today. Diet education 40625121 Z71.3 Counseling 367586766 Z71 .82 Exercise counseljohnathan smiley. Patient encouraged to exercise 30 minutes 5 days a week. Examinatio n of blood pressure 895363634 Z01.30 Vaccine de clined by patient 2348676656 02 Z28.21 Pt declined flu vaccine today. Screening mammography 24 797373 Z12.31 MMG is due 09/2019 Screening for malignant neoplasm of colon 309525540 Z12.11 Colonoscop y 05/02/17 @ [facility] - repeat in 5 years Vaginal dryness 14740906 N89.8 Continue Premarin cream. Tobacco user 373623472 Z 72.0 Body mass index 20-24 - normal 885409525 Z68.23 [id number] NATALIE Almonte [employer] [address] [place] [address] [place] [id number] 03/27/2018 14:55:43 03/27/2018 16:23:52 HPV - Human papillomavirus test positive 770234063 R87.619 Abnormal c ervical Papanicolaou smear 547378280 R87.035 [id number] MD Eve Gipson [employer] [address] [place] [address] [place] [address] 04/21/2018 12:43:03 04/21/2018 13:53:52 HPV - Human papillomavirus test positive 524266794 R87.810 R87.619 Persistent since 2016, 1 round of testing positive for type XVI, negative for 18. Worst histology have been mild dysplasia 2016. Currently unsatisfac tory possibly my visualizat ion with history of HPV effect on prior ECC. LEEP will be more conclusive on final histology. Plan 2-week postop follow-up and next cytology HPV in 6 months Abdominal bloating 54726 9008 R14.0 Incidental symptom mentioned at completion of visit. Will address further at future visits to include bimanual exam and possible pelvic ultrasound as patient has concerns about ovarian cancer, that were the indication for today's visit not fully addressed yet [id number] MD Eve Gipson [employer] [address] [place] [address] [place] [address] 05/30/2018 14:44:48 05/30/2018 15:54:22 HPV - Human papillomavirus test positive 717763844 R87.810 R87.619 Cervical intraepithelial neoplasia grade 1 040822072 N87.0 04/21/18 LEEP mild dysplasia negative margin. 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 Discussed possible limitation s of cervical screening with agglutinat ed os [id number] NATALIE Almonte [employer] [address] [place] [address] [place] [address] 11/02/2018 10:46:32 11/02/2018 11:48:50 Vaginal dryness 40768680 N89.8 Continue Premarin cream. Abnormal c ervical Papanicolaou smear 250745095 R87.619 Z11.3 Patient advised that I will follow up with results. - LEEP mild dysplasia negative margin. Advise every 6 month follow-up Pap and HPV surveillan ce until negative x 3, next due September. Dysuria 67992963 R30.0 Vaginal irritation 76748 6004 N89.8 Vaginal irritation on right vulva x 1 week since using MrYosef Armas bubble bath.Will try topical cream.If this does not improve after 10-14 days, will schedule for vulvar bx. Screening mammography 24 379670 Z12.31 [id number] MD Eve Gipson [employer] [address] [place] [address] [place] [id number] 06/21/2019 08:46:47 06/21/2019 10:44:51 Human papillomavirus deoxyribonucleic acid detected, high risk on cervical specimen 960062523 R87.810 Cervical intraepithelial neoplasia grade 1 259780682 N87.0 Per 2019 LEEP with negative margins.. [...] as definitive therapy. Condyloma acuminata of vagina 647112604 A63.0 . Patient is symptomati c at introitus greater than 1 year without focal lesions being identified until today condyloma changes at 7:00 biospy todaydiffu se skin changes biopsy of 5:00Suspec t condyloma plus or minus dysplastic changes. If mild dysplastic changes would consider for wide excision outpatient here. If high-grade changes will refer for possibly more extensive excision and [place] Cigarette smoker 3132307 7 F17.210 Currently using nicotine patch OTC. Relationsh ip of smoking to poor HPV client reviewed [id number] Maggi Martinez DO [place] [employer] [address] [place] [address] [place] [address] 08/10/2019 14:20:27 08/10/2019 15:19:24 Pruritus of vagina 61245365 L29.3 [id number] Radha Miller APRN [place] [employer] [address] [place] [address] [place] [id number] 01/10/2020 15:39:19 01/10/2020 17:16:05 Cervical intraepithelial neoplasia grade 1 898071276 N87.0 R87.810 Patient advised that I will follow up with results. Osteoporosis 64519374 M8 1.0 Human omar llomavirus deoxyribonucleic acid detected, high risk on cervical specimen 674944503 R87.810 Cigarette smoker 9464645 7 F17.210 Currently using nicotine patch OTC. Urged to quit. Discussed HPV and smoking. 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 Radha Miller, CHEESE PROCESSOR [address], [place], [address], [place] [facility] 11/02/2018 11:40:32 05/07/2019 text/html [...] is having a scope next month in [facility] . Radha Miller APRN [facility] [address], [place], [address], [place] - [facility] 05/07/2019 13:40:58 06/21/2019 text/html Patient is an established patient who presents for follow up onabnormal pap testing . 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 Maggi Martinez DO [address], [place], [address], [place] [facility] 08/12/2019 13:02:56 01/10/2020 text/html [...] 1997 - 2009 reports pap with Family meter installer and remover in [facility] 11/19/10 wnl no hpv testing 02/03/16 wnl [...] vulva @ 7 and 9 Radha Miller, CHEESE PROCESSOR [address], [place], [address], [place] - [facility] 01/10/2020 17:09:09 OBGyn Episode No OBEpisode recorded.
--- OUTSIDE RECORDS SUMMARY | 2025-01-08 07:52 | XMS_ITS | Continuity of Care Document ---
Author Organization [facility]ly [facility], [place] [address] Address [address] [place] [address] Care Team Providers Care Internal Control Consultant Name Role Phone LALO REYNOLDS Builder Beam DARREN GUTIERREZ Primary Care Provider Assessment No assessment recorded. Plan of Treatment Reminders Order Date Submit Date Provider Last Modified By Organization Details Last Modified Time Details Appointments DERM ESTABLISH ED 2024 10:50A M NATALIE REYNOLDS PA-C Not available Not available Not available RECHECK 2024 09:30A M PHI LUNA GUIDANCE AND CONTROL SYSTEM ENGINEER Not available Not available Not available Lab None recorded. Referral None recorded. Procedures None recorded. Surgeries None recorded. Imaging None recorded. Medication Orders None recorded. Patient TargetsNo targets recorded. Patient InstructionsNo instructions recorded. Reason for Referral None Reported. Results Created Date Observation Date Name Description Value Unit Range Abnormal Flag Note LastModifiedBy Organization Detail LastModifiedTime 01/04/2001/02/2025 audio gram No observ ation record ed. BARCODE Not Available 2024 10:12:09 Result Notes None recorded. Procedures Surgical History Date Name Laterality Status Provider Name and Address Organization Details Recorded Time 01/03/20 Tympanogram completed CHRISTOFER SANTANA, PATRICK [address] [place], [address], [facility] 01/02/2025 11:45:19 01/03/20 Audiogram completed PATRICK BELLAMY [address] [place], [address], [facility] 01/02/2025 11:45:18 11/05/20 25 Canalith Repositioning Procedure completed PHI LUNA, GUIDANCE AND CONTROL SYSTEM ENGINEER [address] [place], [address], [facility] 01/02/2025 14:26:36 01/03/20 25 [place] completed PHI LUNA, GUIDANCE AND CONTROL SYSTEM ENGINEER [address] [place], [address], [facility] 01/02/2025 14:27:23 operation on vertebra completed Lanette Vargas [facility] 06/25/2024 11:24:36 Imaging Results None recorded. Procedure Notes None recorded. Medical Equipment None Reported. Allergies Allergen ID Allergen Name Allergen Category Reaction Reaction Severity Criticality Documentation Date Start Date Code Code System Note Provider Name and Address Organization Details Recorded Time 306597 Product containin g penicilli n (product) medicatio n Not available Not available Not available 01/23/20162012 41018 8001 SNOMED Comme nt: Creat ed By: Kevin fountain Date: 2012 11:16 :28 AM; Not Available [facility] 6 03:21:26 652735 Substance with sulfonami de structure and antibacte rial mechanism of action (substanc e) medicatio n Not available Not available Not available 01/02/2025 19816 8003 [facility]ED [facility] Medications Name Sig Start Date Stop Date Status Note LastModified by Organization Details LastModified Time Retin-A 0.05 % topical cream APPLY TO THE AFFECTED AREA(S) BY TOPICAL ROUTE ONCE DAILY AT BEDTIME 01/02 completed pt requeste d differen t pharmacy Not Available Not Available Not Available fluconazo le 150 mg tablet Take by oral route. active Not Available Not Available No t Available Lidoderm 5 % topical patch 01/02 completed Medicati on Descript ion: lidocain e topical; Route:to pical; refills: 0 Not Available Not Available Not Available meclizine 25 mg tablet Take 1 tablet 3 times a day by oral route as needed. 11/05/ 2025 active Not Available Not Available Not Avai lable pantopraz ole 40 mg tablet,de layed release Take 1 tablet every day by oral route. active Not Available Not Available No t Available Prozac 10 mg tablet Daily 01/02 completed Frequenc y: daily;Me dication Descript ion: fluoxeti ne; Dosage:1 ; Route:or al; refills: 0; Quantity :30 Not Available Not Available Not Available Lortab 5 mg-500 mg tablet As Directed 01/02 completed Frequenc y: as direct.; Alt Frequenc y: prn;Medi cation Descript ion: acetamin ophen-hy drocodon e; Dosage:1 ; Route:or al; refills: 0; Quantity :45 tablet Not Available Not Available Not Available Lyrica 100 mg capsule Daily 01/02 completed Frequenc y: daily;Me dication Descript ion: pregabal in; Dosage:8 ; Route:or al; refills: 0 Not Available Not Available Not Available oxycodone active for post op back sx pain Not Available Not Available Not Available meclizine active Not Available Not Sabrina ilable Not Available Claritin active Not Available Not Avai lable Not Available Phenergan active Not Available Not Sabrina ilable Not Available buspirone 40mg 01/02 completed Not Available Not Available Not Available gabapenti n 01/02 completed Not Available Not Available Not Available Flonase Allergy Relief 50 mcg/actua tion nasal spray,brandon pension Baker 1 spray twice a day by intranas al route. active Not Available Not Available No t Available buspirone 10 mg capsule Take 1 capsule twice a day by oral route. active Not Available Not Available No t Available Vitals Date Recorded Body temperature Heart rate Body height Body mass index (BMI) Body weight Systolic And Diastolic Provider Name and Address Organization Details Last Updated DateTime 5 97.6 [degF] 80 /min 157.48 cm 1.5 kg/m2 3628.74 g 132/98 mm[Hg] [facility] 12:10:56 Social History Question Answer Notes LastModified by Organizat ion Details LastModified Time Tobacco Smoking Status Former Smoker Not Available [employer] 01/02/2025 11:33:05 Is Blood Transfusion Acceptable In An Emergency? Yes [email or web address] Information not available 01/02/2025 When Did You Quit Smoking? 1-5yearssinc elastcigaret te [email or web address] Information not available 01/02/2025 What Is Your Home Situation? Other [email or web address] Information not available 01/02/2025 Sunscreen Use? Yes [email or web address] Informatio n not available 06/25/2024 Tanning Bed Use No Informati on not available 06/25/2024 What Was The Date Of Your Most Recent Tobacco Screening? 06/25/2024 [email or web address] Information not available 06/25/2024 At What Age Did You Start Smoking Tobacco? 17 [email or web address] Information not available 01/02/2025 How Many Years Have You Smoked Tobacco? 1 [email or web address] Information not available 01/02/2025 Sex: Unknown Functional Status Question Answer Note LastModified by Organizat ion Details LastModified Time Do you use any illicit or recreational drugs? No [email or web address] Information not available 01/02/2025 What is your level of alcohol consumption? None [email or web address] Information not available 01/02/2025 Mental Status None recorded. Family History Relationship Description Onset Age of this Age Resolved Age Notes LastModified by Organization Details LastModified Time Mother Hypertensive disorder [email or web address] Not available 2024 11:33:04 Mother Ischemic stroke [email or web address] Not available 2024 11:33:04 Mother Heart disease [email or web address] Not available 2024 11:33:04 Mother Diabetes mellitus [email or web address] Not available 2024 11:33:04 Maternal Grandmother Family history of malignant neoplasm [email or web address] Not available 2024 11:33:04 Maternal Grandmother Heart disease [email or web address] Not available 2024 11:33:04 Father Family history of malignant neoplasm [email or web address] Not available 2024 11:33:04 Father Ischemic stroke [email or web address] Not available 2024 11:33:04 Medical History No medical history recorded. Gynecological HistoryNo gynecological history recorded. Obstetrics History GPAL:G 0 P 0 0 0 0 Immunizations Vaccine Type Date Status Note Provider Nam e and Address Organization Details Recorded Time Influenza, split virus, quadrivalent, preservative 6 completed Not Available [facility] 01/02/2025 11:45:59 Influenza, split virus, quadrivalent, preservative 8 completed Not Available [facility] 01/02/2025 11:45:59 Hep A, adult 8 completed Not Available [facility] 01/02/2025 11:45:59 Hep A, adult 9 completed Not Available [facility] 01/02/2025 11:45:59 Influenza, split virus, quadrivalent, preservative 9 completed Not Available [facility] 01/02/2025 11:45:59 Influenza, split virus, quadrivalent, PF 0 completed Not Available [facility] 01/02/2025 11:45:59 COVID-19, mRNA, LNP-S, PF, 100 mcg/0.5mL dose or 50 mcg/0.25mL dose 1 completed Not Available [facility] 01/02/2025 11:45:59 COVID-19, mRNA, LNP-S, PF, 100 mcg/0.5mL dose or 50 mcg/0.25mL dose 1 completed Not Available [facility] 01/02/2025 11:45:59 Influenza, split virus, quadrivalent, PF 1 completed Not Available [facility] 01/02/2025 11:45:59 COVID-19, mRNA, LNP-S, PF, 100 mcg/0.5mL dose or 50 mcg/0.25mL dose 1 completed Not Available [facility] 01/02/2025 11:45:59 COVID-19, mRNA, LNP-S, PF, 100 mcg/0.5mL dose or 50 mcg/0.25mL dose 2 completed Not Available [facility] 01/02/2025 11:45:59 Influenza, MDCK, quadrivalent, PF 2 completed Not Available [facility] 01/02/2025 11:45:59 Influenza, split virus, quadrivalent, PF 3 completed Not Available [facility] 01/02/2025 11:45:59 COVID-19, mRNA, LNP-S, PF, caprice-sucrose, 30 mcg/0.3 mL 4 completed Not Available [facility] 01/02/2025 11:45:59 Influenza, split virus, trivalent, PF 4 completed Not Available [facility] 01/02/2025 11:45:59 Influenza, split virus, trivalent, PF 5 completed Not Available [facility] 01/02/2025 11:45:59 Past Encounters Encounter ID Performer Location Encounter Start Date Encounter Closed Date Diagnosis/Indication Diagnosis SNOMED-CT Code Diagnosis ICD10 Code Diagnosis IMO Codes Diagnosis Note [id number] PHI LUNA, NATALIE [place] [facility] [address] [place] [address] 01/02/2025 11:33:03 01/02/2025 14:39:40 Benign paroxysmal positional vertigo 180975859 H81.11 [id number] Referred o talgia of right ear 7022884353 683101 H92.01 [id number] -likely referred from neck pain Sensorineu ral hearing loss of bilateral ears 363062179 H90.3 [id number] 01/02/25: Right - mild HF loss, Ad tymp; Left - moderate HF loss, Ad tymp; bilateral WDS 100% Ear pressu re sensation 855321984 H93.8X1 [id number] PATRICK BELLAMY [place] [facility] [address] [place] [address] 01/02/2025 11:44:18 01/03/2025 21:19:05 Sensorineural hearing loss of bilateral ears 777467619 H90.3 [id number] Dizziness 019081465 R42 16658 Ear pressu re sensation 455752587 H93.8X3 94524866 Bilateral earache 872858 003 H92.03 [id number] Health Concerns Section Related Observation LastModified by Organization Detai ls LastModified Time None Recorded Concern Status LastModified by Organization Details LastModified Time None Recorded Payers Encounter Date Sequence Insurance Name Policy Number Policy Rhodes Covered Member ID Rhodes Member ID Guarantor Name 01/02/2025 1 MEHUL-SONJA: SHAUNNA [place] OF [place] - MED[employer] [place] (MEDICARE REPLACEMENT HMO) [id number] Luna Foreman [id number] Luna Foreman Notes Date Note Type Note Provider Name and Address Organization Details Recorded Time 01/02/2025 text/html ROS as noted in the HPI Luna presents to clinic today for evaluation of vertigo. Her vertigo began 11/12/2024. She believes it may be associated with flying as she had gotten off of a plane the day prior. She describes the vertigo as room spinning that resolves in minutes and reports that she had a fall shortly after it began. She was seen in the ER at [facility] and reports a CT of her head was done and was normal. She does, however, report that she has experienced pain in her right ear and along the right side of her neck. The vertigo has progressively improved since it first began. She has been taking Meclizine regularly - the last time was this morning. She denies any accompanying hearing changes. She denies hx of migraines. PHI LUNA, GUIDANCE AND CONTROL SYSTEM ENGINEER [address], [place], [address], [facility] 01/02/2025 16:42:54 OBGyn Episode No OBEpisode recorded.
--- OUTSIDE RECORDS SUMMARY | 2025-01-08 07:52 | XMS_ITS | Encounter Summary ---
Author Organization [facility] Address [address] [place] [address] Care Team Providers Care Services Executive Name Role Phone Naya Goodwin AUDIOVISUAL AIDS TECHNICIAN Primary Care Provider [phone] Chelsey Mascorro Unavailable Yong Mata MD Unavailable Malena Burton APRN Unavailable [phone] Encounter Details Date Type Department Care Team (Late Contact Info) Description 05/10/2023 Orders Only External Location [address] [place] [address] Provider, External Social History Tobacco Use Types [...] Department Care Team (Late Contact Info) Description 03/06/2025 1:00 PM EST Clinical Support [facility] Laboratory Services [address] [place] [address] 03/20/2025 11:20 AM EST Pharmacist Visit [facility] Mineral Metabolism [address], [address] [place] [address] Neil Saldana, PharmD [address] [place] [address] 03/27/2025 1:00 PM EST Office Visit [facility] [address] [place] [address] Malena Burton E, AUDIOVISUAL AIDS TECHNICIAN [address] [place] [address] 04/17/2025 2:00 PM EST Office Visit [facility] [address] [place] [address] Nevaeh Harrison S, AUDIOVISUAL AIDS TECHNICIAN [address] [facility] [address] [place] [address] 04/25/2025 1:30 PM EST Office Visit [facility] [address], [address] [place] [address] Arnav Ibarra MD [address] [place] [address] documented as of this encounter [...] documented as of this encounter Care Teams Services Executive Relationship Specialty Start Date End Date Naya Goodwin APRN [facility] [place], [place] [id number] PCP - General 07/11/20 Chelsey Mascorro [address] [place] [address] [place] [address] Referring Physician Gynecology 01/19/21 Yong Maat MD [address] [place], [place] [address] [address] [place], [place] [phone] Surgeon Pain Medicine 05/12/21 Malena Burton APRN [address] [facility] [facility] [address] [place] [address] Nurse Practitioner Urology 06/09/23 documented as of this encounter
--- OUTSIDE RECORDS SUMMARY | 2025-01-08 07:52 | XMS_ITS | Clinical Summary ---
Author Organization [facility] Address [address] [place] [address] Care Team Providers Care Wholesale Loan Processor Name Role Phone Naya Goodwin APRN Primary Care Provider [phone] Chelsey Mascorro Unavailable Yong Mata MD Unavailable Malena Burton APRN Unavailable Allergies Active Allergy Reactions Criticality Noted Date [...] 07/07/19 24 Active calcitriol (Rocaltrol) 0.25 MCG capsuleIndications :Secondary hyperparathyroidis m, non-renal (CMS/HCC) Take 1 capsule (0.25 mcg) by mouth 1 (one) time each day. 30 capsule 5 01/25/20 24 Active gabapentin (Neurontin) 300 MG capsule [...] before bedtime. 28 capsule 05/09/19 25 Active methocarbamol (Robaxin) 500 MG tablet [...] 25 Active cholecalciferol 25 MCG (1000 UT) tabletIndications: Age-related osteoporosis without current pathological fracture Take 1 tablet by mouth daily. 30 tablet 11 08/15/19 026 Active Oteseconazole, 12 Week, (Vivjoa) 150 MG capsule therapyIndications :Yeast infection of the vagina,Vaginal itching Take 1 capsule by mouth 1 time per week. 18 each 3 10/02/19 25 Active lidocaine-prilocai ne (Emla) 2.5-2.5 % cream Apply to vulvar biopsy area 5 g 1 10/02/19 25 Active meclizine (Antivert) 12.5 MG tablet Take 1 tablet by mouth 3 times a day. Active meclizine (Antivert) 25 MG tablet Take 1 tablet by mouth 3 times a day. Active estrogens, conjugated, (Premarin) vaginal cream Insert into the vagina daily. 30 g 12/26/19 25 025 Active nystatin (Mycostatin) creamIndications:V aginal itching,Yeast infection of the vagina Apply to effected area twice daily or as needed to help with itching. 30 g 1 12/26/19 25 Active clobetasol (Temovate) 0.05 % cream Apply topically twice weekly. 30 g 12/26/19 25 Active nystatin (Mycostatin) creamIndications:V aginal itching,Yeast infection of the vagina Apply to effected area twice daily or as needed to help with itching. 30 g 1 02/28/20 24 025 Discontinu ed(Reorder ) clobetasol (Temovate) 0.05 % cream Apply topically twice weekly. 30 g 06/21/19 25 025 Discontinu ed(Reorder ) Premarin vaginal cream INSERT 1 GRAM INTO THE VAGINA 2 (TWO) TIMES A WEEK. 30 g 10/24/19 25 025 Discontinu ed(Reorder ) fluconazole (Diflucan) 100 MG tabletIndications: Yeast infection of the vagina Take 1 tablet by mouth daily for 7 days. 7 tablet 12/26/19 25 025 Active Problems Problem Noted Date Diagnosed Date Spondylolisthesis at L4-L5 level 04/23/2024 Lumbar stenosis with neurogenic claudication Lumbosacral spondylosis with radiculopathy 01/15 Lumbar spondylosis 07/14/2023 Intestinal malabsorption 07/07/2023 Spondylolisthesis of lumbosacral region 07/07/19 Pelvic floor dysfunction 06/09/2023 Age-related osteoporosis wit [...] Encounters Date Type Department Care Team Description 12/25/2024 2:30 PM EDT Office Visit [facility] [address] [place] [address] [place], Nevaeh S, AUTOMOBILES SALESPERSON Vaginal itching; Yeast infection of the vagina 12/25/2024 Travel 12/13/2024 Telephone [facility] [address], [address] [place] [phone] Malena Burton, AUTOMOBILES SALESPERSON 11/07/[address] [facility] Gyne[facility] [address] [place] [address] [place], Nevaeh S, AUTOMOBILES SALESPERSON 10/26/2024 Refill [facility] [address] [place] [phone] Christy, Nevaeh S, AUTOMOBILES SALESPERSON Yeast infection of the vagina; Vaginal itching 10/23/2024 Telephone [facility] [address] [facility], [address] [place] [address] Neil Saldana, PharmD 10/23/2024 Refill [facility] [address] [place] [phone] [place], Nevaeh S, AUTOMOBILES SALESPERSON 10/10/2024 Refill [facility] [address] [place] [address] Nevaeh Harrison S, AUTOMOBILES SALESPERSON from Last 3 Months Immunizations Immunization Administration [...] Mass Index 23.75 12/25/2024 2:10 PM EDT Plan of Treatment Upcoming Encounters Date Type Department Care Team (Late st Contact Info) Description 03/06/2025 1:00 PM EST Clinical Support [facility] [address] [facility], 1st Floor [place] [id number] 03/20/2025 11:20 AM EST Pharmacist Visit [facility] [address] [facility], [address] [place] [address] Neil Saldana, PharmD [address] [facility] [address] [place] [address] 03/27/2025 1:00 PM EST Office Visit [facility] [address] [place] [address] Malena Burton E, AUTOMOBILES SALESPERSON [address] [place] [address] 04/17/2025 2:00 PM EST Office Visit [facility] [address] [place] [address] Nevaeh Harrison S, AUTOMOBILES SALESPERSON [address] [facility] [address] [place] [address] 04/25/2025 1:30 PM EST Office Visit Medical Office Building [facility] [address] [facility], [address] [place] [address] Arnav Ibarra MD [address] [place] [address] Health Maintenance Due Date Last Done Comments [facility]-Medicare Annual Wellness (AWV) 1962 [facility]-/Child/Adol SDOH Screenings 1962 [facility]- SDOH Screenings 1980 [facility]-Adult SDOH Screenings 1980 [facility]-DTaP,Tdap,and Td Vaccines (1 - Tdap) 1981 CT Colonography 11/25/2007 Colonoscopy 11/25/2007 FIT-DNA 11/25/2007 FIT 11/25/2007 FOBT 11/25/2007 Sigmoidoscopy 11/25/2007 [facility]-Colorectal Cancer Screening 11/25/2007 Lung Cancer Screening Shared Decision Making 2012 [facility]-Breast Cancer Screening 2012 [facility]-Pneumococcal Vaccine: 50+ Years (1 of 1 - PCV) 2012 [facility]-Zoster Vaccines (1 of 2) 2012 [facility]-UFONW-75 Vaccine (6 - 2024- season) 2024 03/16/2023, 10/09/2021, 02/25/2021, Additional history exists [facility]-Lung Cancer Screening 11/27/2024 11/28/2023, 01/2022 [facility]-Bone Density Scan 08/14/2025 08/14/2024 , 05/10/2023, 05/10/2023 [facility]-Depression Screening 12/25/2025 025, 06/20/2024, 01/25/2024, Additional history exists [facility]-RSV Vaccine: 60+ Years or (1 - 1-dose 75+ series) 2037 [facility]-Hepatitis A Vaccines Aged Out 2018, 01/28 No longer eligible based on patient's age to complete this topic [facility]-HIV Screening Completed 10/01/2024, , 08/08/2021 [facility]-Hepatitis C Screening Completed 2024, 08/08/2021, 08/08/2021 [facility]-Influenza Vaccine Completed 12/19/2024 , 12/12/2023, 12/03/2022, Additional history exists HPV Vaccines Aged Out No longer eligi [...] this topic Medical Devices Implanted Type Area Front Office Medical Assistant Device Identifier Shelf Expiration Date Model / Serial / Lot Single Inner Setscrew - [id number] Implanted:Qty: 4 on 04/23/2024 by Arnav Ibarra MD at [facility] Screw N/A: Spine Lumbar De[employer]ine [employer] [id number] / / N/A Screw 5.5mm Viper Ti Fen Crtcl Polyax 7mm X 40mm - [id number] Implanted:Qty: 2 on 04/23/2024 by Arnav Ibarra MD at [facility] Screw N/A: Spine Lumbar [employer] [id number] / / N/A Screw 5.5mm Viper Ti Fen Crtcl Polyax 6mm X 40mm - [id number] Implanted:Qty: 2 on 04/23/2024 by Arnav Ibarra MD at [facility] Screw N/A: Spine Lumbar [employer] [id number] / / N/A Nerve Stimulator N/A: Back Matrix Fibergraft Bg Medium 6.25cc - [id number] Implanted:Qty: 1 on 04/23/2024 by Arnav Ibarra MD at [facility] N/A: Spine Lumbar [employer] [id number] 10/25/2026 [id number] / / [id number] Description:Surgeon uses the patients own blood to prepare Pre-Lordosed Terrance W/ Line 35mm - [id number] Implanted:Qty: 2 on 04/23/2024 by Arnav Ibarra MD at [facility] N/A: Spine Lumbar [employer] [id number] / / N/A Procedures Procedure Name Priority Date/Time Associated Diagnosis Comments HEPATITIS C ANTIBODY W/REFLEX TO HCV QUANT PCR Routine 10/01/2024 10:50 AM EDT HIV 1/2 ANTIBODY/ANTIGEN SCREEN WITH REFLEX TO HIV I/II DIFFERENTIATION Routine 10/01/2024 10:50 AM EDT Occupational exposure in workplace DEXA BONE DENSITY Routine 08/14/2024 12: 46 PM EDT Age-related osteoporosis without current pathological fracture CT CHEST W IV CONTRAST Routine 4 3:37 PM EDT History of abnormal cervical Pap smear Vulvar dysplasia from Last 3 Months or Most Recently Relevant to Health Maintenance Results * HIV 1 & 2 Antibody/Antigen Screen (10/01/2024 10:50 AM EDT) Pathologist [facility] HIV 1 & 2 Antibody/Antigen Screen Non Reactive Non Reactive 10/01/2024 10:50 AM EDT [facility] Comment:Screening for HIV 1 & 2 antibodies, and P24 antigen is NONREACTIVE. No confirmatory testing is required. Blood Venous blood specimen / Unknown 10/01/2024 10:10 AM EDT [facility] LAB BLOOD ORDERABLES Final R esult Performing Organization Address City/[facility] Co de Phone Number [facility] [address] [place] [address] * Hepatitis C Antibody (10/01/2024 10:50 AM EDT) Pathologist [facility] Hepatitis C Antibody Negative Negative 10/01/2024 10:50 AM EDT [facility] Blood Venous blood specimen / Unknown 10/01/2024 10:10 AM EDT [facility] BLOOD ORDERABLES Final R esult Performing Organization Address [facility] Co de Phone Number [facility] [address] [place] [address] * Dexa Bone Density (08/14/2024 12:46 PM EDT) Anatomical Region Laterality Modality L-spine Radiographic Mitra ging Narrative 08/18/2024 9:02 PM EDT [facility] [address] [place] [address] DXA Bone Densitometry Report: [08/14/2024] BMD test performed using the [employer] DXA System (analysis version: 14.10) manufactured by [employer]. REFERRING PROVIDER: Dr. Sana Strong MD CLINICAL [...] on 11/28/2023 5:01 PM us Nevaeh S [place] AUTOMOBILES SALESPERSON IMG CT PROCEDURES Final Resu lt from Last 3 Months or Most Recently Relevant to Health Maintenance Insurance [employer] MEDICARE Advance Directives * Full Code (Latest Code Status on File) Date Activated Date Inactivated Comments 04/23/2024 12:16 PM 04/24/2024 4:00 PM Question Answer Comments Patient has decision-making capacity? Yes * Full Code Date Activated Date Inactivated Comments 08/08/2021 10:42 PM 08/14/2021 5:13 PM Question Answer Comments Patient has decision-making capacity? Yes Care Teams Wholesale Loan Processor Relationship Specialty Start Date End Date Naya Goodwin APRN [address] [place] [address] PCP - General 07/11/20 Chelsey Mascorro [address] [place] [address] [place] [address] Referring Physician Gynecology 01/19/21 Yong Mata MD [facility] [address] [place] [address] Surgeon Pain Medicine 05/12/21 Malena Burton APRN [address] [facility] [address] [place] [address] Nurse Practitioner Urology 06/09/23
--- OUTSIDE RECORDS SUMMARY | 2025-01-08 07:52 | XMS_ITS | Encounter Summary ---
Author Organization [facility] Address [address] [place] [address] Care Team Providers Care Clinical Marketing Manager Name Role Phone Naya Goodwin MANAGER NURSING Primary Care Provider [phone] Chelsey Mascorro Unavailable Yong Mata MD Unavailable Malena Burton APRN Unavailable [phone] Encounter Details Date Type Department Care Team (Latest Contact Info) Description 12/25/2024 Travel Social History Tobacco Use Types Packs/Day [...] Violet Durbin documented as of this encounter Plan of Treatment Upcoming Encounters Date Type Department Care Team (Late st Contact Info) Description 03/06/2025 1:00 PM EST Clinical Support [facility] [address] [facility], 1st [place] [address] 03/20/2025 11:20 AM EST Pharmacist Visit [facility] [address] [facility], [address] [place] [address] Neil Saldana, PharmD [address] [facility] [address] [place] [address] 03/27/2025 1:00 PM EST Office Visit [facility] [address], [address] [place] [address] Malena Burton E, MANAGER NURSING [address] [place] [address] 04/17/2025 2:00 PM EST Office Visit [facility] [address] [place] [address] ChristyNevaeh romero S, MANAGER NURSING [address] [facility] [address] [place] [address] 04/25/2025 1:30 PM EST Office Visit Medical Office Building [facility] [address] [facility], [address] [place] [address] Arnav Ibarra MD [address] [place] [address] documented as of this encounter [...] as of this encounter Care Teams Clinical Marketing Manager Relationship Specialty Start Date End Date Naya Goodwin APRN [facility] [place], [place] [id number] PCP - General 07/11/20 Chelsey Mascorro [address] [facility] [place], [place] [id number] Referring Physician Gynecology 01/19/21 Yong Mata MD [facility] [address] [place], [place] [id number] Surgeon Pain Medicine 05/12/21 Malena Burton APRN [address] [facility] [address] [place] [address] Nurse Practitioner Urology 06/09/23 documented as of this encounter
--- OUTSIDE RECORDS SUMMARY | 2025-01-08 07:52 | XMS_ITS | Data Portability ---
Author Organization SONJA GAYATHRI Espino[facility] [place] [facility] Address [address] [place] [address] Care Team Providers Care Open Hearth Stockyard Supervisor Name Role Phone LALO REYNOLDS Marketing Intelligence Analyst DARREN GUTIERREZ Primary Care Provider Assessment No assessment recorded. Plan of Treatment Reminders Order Date Submit Date Provider Last Modified By Organization Details Last Modified Time Details Appointments RECHECK 2024 09:30A M PHI LUNA BELT FIXER Not available Not available Not available Lab None recorded. Referral None recorded. Procedures None recorded. Surgeries None recorded. Imaging None recorded. Medication Orders meclizine 25 mg tablet 2024 025 [facility], [address] [place] [address], [id number], 01/02/2025 14:47:35 Retin-A 0.05 % topical cream [address] [id number], [address], [id number], 01/02/2025 12:13:25 Patient TargetsNo targets recorded. Patient Instructions Encounter Date Encounter Id Patient Instructions Last Modified By Organization Details Last Modified Time 01/02/2025 [id number] 1. Audiogram obtained in office today. Results discussed with patient. 2. Negative Washington-Hallpike but subjective vertigo experienced on the right. 3. Right CRP performed and post-maneuver restrictions reviewed. 4. Rx - Meclizine 25 mg three times day as needed - per patient request for symptom management 5. F/u 2-3 weeks - will perform a second CRP and refer to vestibular therapy if needed [place] ENT MD - Dwain [email or web address] Not available 01/02/2025 14:36:00 Ears clear on exam today - suspect referred otalgia from neck pain - neck pain possibly from compensation due to BPPV. Will reassess right otalgia at next visit. Cheryle-Hallpike negative on exam but patient reported vertigo on the right; negative exam likely due to patient taking Meclizine this morning. [email or web address] Not available 01/02/2025 14:37:29 Reason for Referral None Reported. Results Created Date Observation Date Name Description Value Unit Range Abnormal Flag Note LastModifiedBy Organization Detail LastModifiedTime 01/04/2001/02/2025 audio gram No observ ation record ed. BARCODE Not Available 2024 10:12:09 Result Notes None recorded. Procedures Surgical History Date Name Laterality Status Provider Name and Address Organization Details Recorded Time 01/03/20 Tympanogram completed PATRICK BELLAMY [address] [place], [address], [facility] 01/02/2025 11:45:19 01/03/20 25 Audiogram completed PATRICK BELLAMY [address] [place], [address], [facility] 01/02/2025 11:45:18 01/03/20 25 Canalith Repositioning Procedure completed PHI LUNA APRN [address] [place], [address], [facility] 01/02/2025 14:26:36 01/03/20 25 [place]-Hallpike completed PHI LUNA APRN [address] [place], [address], [facility] 01/02/2025 14:27:23 operation on vertebra completed Lanette Vargas [facility] 06/25/2024 11:24:36 Imaging Results None recorded. Procedure Notes None recorded. Medical Equipment None Reported. Allergies Allergen ID Allergen Name Allergen Category Reaction Reaction Severity Criticality Documentation Date Start Date Code Code System Note Provider Name and Address Organization Details Recorded Time 679912 Product containin g penicilli n (product) medicatio n Not available Not available Not available 01/23/20162012 91076 8001 SNOMED Comme nt: Bree ed By: Kevin fountain Date: 2012 11:16 :28 AM; Not Available [facility] 6 03:21:26 121203 Substance with sulfonami de structure and antibacte rial mechanism of action (substanc e) medicatio n Not available Not available Not available 01/02/2025 26424 8003 SNOMED [facility] 12:12:30 Medications Name Sig Start Date Stop Date Status Note LastModified by Organization Details LastModified Time Retin-A 0.05 % topical cream APPLY TO THE AFFECTED AREA(S) BY TOPICAL ROUTE ONCE DAILY AT BEDTIME 01/02 completed pt requeste [facility] Not Available Not Available Not [...] a day by oral route as needed. 2024 active Not Available Not Available Not [...] Relief 50 mcg/actua tion nasal spray,[facility] [place] 1 spray twice a day by intranas [...] and Address Organization Details Last Updated DateTime 97.6 [degF] 80 /min 157.48 cm 1.5 kg/m2 3628.74 g 132/98 mm[Hg] [facility] 12:10:56 Social History Question Answer Notes LastModified by Organizat ion Details LastModified Time Tobacco Smoking Status Former Smoker Not Available [employer] 01/02/2025 11:33:05 Is Blood Transfusion Acceptable In An Emergency? Yes [email or web address] Information not available 01/02/2025 When Did You Quit Smoking? 1-5yearssinc elastcigaret te [email or web address] Information not available 01/02/2025 What Is Your Home Situation? Other [email or web address] Information not available 01/02/2025 Sunscreen Use? Yes Informatio n not available 06/25/2024 Tanning Bed Use No [email or web address] Informati on not available 06/25/2024 What Was The Date Of Your Most Recent Tobacco Screening? 06/25/2024 [email or web address] Information not available 06/25/2024 At What Age [...] virus, quadrivalent, preservative 6 completed Not Available [facility] 01/02/2025 11:45:59 Influenza, split virus, quadrivalent, preservative 8 completed Not Available [facility] 01/02/2025 11:45:59 Hep A, adult 8 completed Not Available [facility] 01/02/2025 11:45:59 Hep A, adult 9 completed Not Available [facility] 01/02/2025 11:45:59 Influenza, split virus, quadrivalent, preservative 9 completed Not Available [facility] 01/02/2025 11:45:59 Influenza, split virus, quadrivalent, PF 0 completed Not Available [facility] 01/02/2025 11:45:59 COVID-19, mRNA, LNP-S, PF, 100 mcg/0.5mL dose or 50 mcg/0.25mL dose 1 completed Not Available [facility] 01/02/2025 11:45:59 COVID-19, mRNA, LNP-S, PF, 100 mcg/0.5mL dose or 50 mcg/0.25mL dose 1 completed Not Available [facility] 01/02/2025 11:45:59 Influenza, split virus, quadrivalent, PF 1 completed Not Available [facility] 01/02/2025 11:45:59 COVID-19, mRNA, LNP-S, PF, 100 mcg/0.5mL dose or 50 mcg/0.25mL dose 1 completed Not Available [facility] 01/02/2025 11:45:59 COVID-19, mRNA, LNP-S, PF, 100 mcg/0.5mL dose or 50 mcg/0.25mL dose 2 completed Not Available [facility] 01/02/2025 11:45:59 Influenza, MDCK, quadrivalent, PF 2 completed Not Available [facility] 01/02/2025 11:45:59 Influenza, split virus, quadrivalent, PF 3 completed Not Available [facility] 01/02/2025 11:45:59 COVID-19, mRNA, LNP-S, PF, caprice-sucrose, 30 mcg/0.3 mL 4 completed Not Available [facility] 01/02/2025 11:45:59 Influenza, split virus, trivalent, PF 4 completed Not Available [facility] 01/02/2025 11:45:59 Influenza, split virus, trivalent, PF 5 completed Not Available [facility] 01/02/2025 11:45:59 Past Encounters Encounter ID Performer Location Encounter Start Date Encounter Closed Date Diagnosis/Indication Diagnosis SNOMED-CT Code Diagnosis ICD10 Code Diagnosis IMO Codes Diagnosis Note [id number] TIFFANY CARDOSO [address] [address] 06/25/2024 11:13:34 06/25/2024 12:56:28 Multiple benign melanocytic nevi 774257181 L81.4 L82.1 The benign nature of keratoses [...] any suspicious lesions are noted. Wrinkled skin 472288923 L98.8 6599192 The nature of the diagnosis was discussed. Rx prescribed for Rx Retin-A 0.05% topical cream, QHS. SE reviewed.U se goodrx to package pick up Rx. Seborrheic keratosis 394 312657 L82.1 62978 The nature of the diagnosis was discussed. Benign appearing lesions.Si nce bothersome , will tx w/ LN2 (No charge).Le sions tx'ed today may persist. Milia 681783568 L72.0 58208 The nature of the diagnosis was discussed. Benign clogged pore.Acne surgery performed. Hold off on retin-a for 1 wk. [id number] [facility] [address] [place] [address] 01/02/2025 11:33:03 01/02/2025 14:39:40 Benign paroxysmal positional vertigo 249334624 H81.11 54894065 Referred o talgia of right ear 0014011451 518159 H92.01 94096736 -likely referred from neck pain Sensorineu ral hearing loss of bilateral ears 036514306 H90.3 944431 01/02/25: Right - mild HF loss, Ad tymp; Left - moderate HF loss, Ad tymp; bilateral WDS 100% Ear pressu re sensation 227683528 H93.8X1 45697365 [id number] PATRICK BELLAMY [facility] [address] [place] [address] 01/02/2025 11:44:18 01/03/2025 21:19:05 Sensorineural hearing loss of bilateral ears 265727348 H90.3 92480011 Dizziness 707057020 R42 65453 Ear pressu re sensation 948179538 H93.8X3 53114566 Bilateral earache 208371 003 H92.03 2802465 Health Concerns Section Related Observation LastModified by Organization Detai ls LastModified Time None Recorded Concern Status LastModified by Organization Details LastModified Time None Recorded Advance Directives Directive None Recorded Payers Insurance Date Sequence Insurance Name Policy Number Policy Rhodes Covered Member ID Rhodes Member ID Guarantor Name 01/01/2025 1 [place]MEDICARE REPLACEMENT HMO) [id number] Luna Foreman [id number] Luna Moreno Kellen 06/25/2024 1 *SELF PAY* Ca romero Tiffanie Kellen Notes Date Note Type Note Provider Name and Address Organization Details Recorded Time 06/25/2024 text/html ROS as noted in the HPI face and neck examlast seen: 10/2022hx:nonereports: multiple concernsdeclined fbse TIFFANY CARDOSO [address] [place], [address], [facility] 06/25/2024 12:12:32 01/02/2025 text/html ROS as noted in the [...] She was seen in the ER at [facility] and reports a CT of her [...] She denies hx of migraines. PHI LUNA, NATALIE [address] [place], [address], [facility] 01/02/2025 16:42:54 OBGyn Episode No OBEpisode recorded.
--- OUTSIDE RECORDS SUMMARY | 2025-01-08 07:52 | XMS_ITS ---
Author Organization [facility] Address [address] [place] [address] Care Team Providers Care Sheriff Detective Name Role Phone Naya Goodwin APRN Primary Care Provider [phone] Chelsey Mascorro Unavailable Yong Mata MD Unavailable Malena Burton APRN Unavailable [phone] Active Problems Problem Noted Date Diagnosed Date [...]
--- OUTSIDE RECORDS SUMMARY | 2025-01-08 07:52 | XMS_ITS | Continuity of Care Document ---
Author Organization [place] - [employer] [facility] Address [address] [place] [address] Assessment Encounter Date Assessment Date Assessment LastModified by Organization Details LastModified Time 01/07/2025 01/07/2025 Luna Foreman, a postmenopausal woman, presented with ongoing vertigo since November 12, accompanied by intermittent dizziness and ear pain. Her medical history includes anxiety disorder, IBS, and past hysterectomy and back surgery. 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 The plan included continuing meclizine (weaning from 3 to 2 tablets daily), vestibular exercises, follow-up with audiology, and restarting Lexapro at a reduced dose of 10mg daily for anxiety. Flonase twice daily was continued, and she declined covid vaccination. Not available 01/07/2025 17:27:50 Plan of Treatment Reminders Order Date Submit Date Provider Last Modified By Organization Details Last Modified Time Details Appointments None recorded. Lab None recorded. Referral None recorded. Procedures None recorded. Surgeries None recorded. Imaging None recorded. Medication Orders escitalopra m 10 mg tablet [address] [facility], [facility], [place], [address], 17:08:14 Patient TargetsNo targets recorded. Patient InstructionsNo instructions recorded. Reason for Referral None Reported. Results Created Date Observation Date Name Description Value Unit Range Abnormal Flag Note LastModifiedBy Organization Detail LastModifiedTime 12/15/19 25 12/14/2024 CT, head + brain , w/o contr ast No observ ation record ed. [address], [place], [address], 12/17/2024 09:08:23 12/15/1912/14/2024 CT, angio gram, neck, w/ contr ast No observ ation record ed. [address], [place], [address], 12/17/2024 09:08:06 12/15/1912/14/2024 CT, angio gram, head, w/wo contr ast No observ ation record ed. [address], [place], [address], 12/17/2024 09:07:32 12/15/1912/14/2024 elect refugio chan am, christina ne ECG, 12 leads min No observ ation record ed. [address], [place], [address], 12/17/2024 09:07:13 Result Notes None recorded. Problems Name Problem SNOMED Code Status Onset Date Resolution Date Notes Provider Name and Address Organization Details Recorded Time Major depressi on, single episode 60097750 Completed 201605/19/2017 Problem Code: F32.9; Problem Code Type: ICD-10; Not Available [facility] 22:26:38 Moderate recurren t major depressi on 96745309 Completed 201611/26/2018 Problem Code: F33.1; Problem Code Type: ICD-10; Not Available [facility] 22:26:38 Lumbosac ral radiculo aiden 7715130 Completed 201611/17/2017 Problem Code: M54.16; Problem Code Type: ICD-10; Not Available [facility] 22:26:44 Low back pain 933110844 Completed 201611/17/2017 Problem Code: 724.2; Problem Code Type: ICD-9; Naya Goodwin, [employer] [address] [facility], [place], [address] , [employer]. 4 08:40:49 Chronic obstruct mitesh pulmonar y disease 66651353 Completed 201607/11/2020 Problem Code: 496; Problem Code Type: ICD-9; Not Available [facility] 2 22:27:12 Influenz a 2496780 Completed 201704/08/2017 Problem Code: J10.1; Problem Code Type: ICD-10; MARY RAZIAELIZABETH [employer], [employer]. 2 11:49:03 Influenz a with non-resp iratory manifest ation 20778905 Completed 201704/08/2017 Problem Code: 487.8; Problem Code Type: ICD-9; Not Available [facility] 2 22:27:11 Generali zed anxiety disorder 17833233 Completed 201708/17/2017 Problem Code: F41.1; Problem Code Type: ICD-10; Not Available [facility] 2 22:26:38 Gastroes ophageal reflux disease without esophagi tis 324065598 Completed 201711/17/2021 MARY RAZIAELIZABETH mona, [employer]. 2 11:49:03 Gastro-e sophagea l reflux disease with esophagi tis 314530272 Active 2017 Problem Code: K21.0; Problem Code Type: ICD-10; Not Available [facility] 2 22:27:00 Gastroes ophageal reflux disease 869199716 Completed 201707/11/2020 Problem Code: 530.81; Problem Code Type: ICD-9; Not Available [facility] 2 22:27:07 Moderate recurren t major depressi on 00342007 Active 2017 Problem Code: F33.1; Problem Code Type: ICD-10; Not Available [facility] 2 22:26:38 Chronic post-tra umatic stress disorder 771579948 Completed 201708/19/2017 Problem Code: F43.12; Problem Code Type: ICD-10; Not Available [facility] 22:26:38 Post-tra umatic stress disorder 49252826 Active 2017 Problem Code: F43.10; Problem Code Type: ICD-10; Not Available [facility] 22:26:39 Sleep behavior finding 068740042 Completed 201711/17/2017 Not Available [facility] 22:26:39 Chronic pain syndrome 834947859 Active 2017 Problem Code: G89.4; Problem Code Type: ICD-10; Not Available [facility] 22:26:39 Sarah smiley Completed 201711/17/2017 MARY dunn [employer] 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 29664275 Completed 201707/11/2020 Problem Code: 053.12; Problem Code Type: ICD-9; Not Available [facility] 22:27:02 Organic sleep disorder 812603717 Completed 201711/17/2017 Problem Code: 327.8; Problem Code Type: ICD-9; Not Available [facility] 2 22:27:06 Asthenia 50400415 Completed 201711/17/2017 Problem Code: R53.1; Problem Code Type: ICD-10; Not Available [facility] 2 22:27:08 Malaise and fatigue 577245921 Completed 201711/17/2017 Problem Code: 780.79; Problem Code Type: ICD-9; Not Available [facility] 22:27:09 Hyperlip idemia ezequiel smiley Completed 201711/17/2017 Problem Code: V77.91; Problem Code Type: ICD-9; Not Available [facility] 22:27:09 Herpesvi uzma infectio n 25626398 Completed 201711/26/2018 Problem Code: A60.09; Problem Code Type: ICD-10; Not Available [facility] 22:26:37 Genital herpes simplex 97657244 Completed 201707/11/2020 Problem Code: 054.19; Problem Code Type: ICD-9; Not Available [facility] 22:27:01 Acute sinusiti s 64522574 Completed 201712/01/2017 Problem Code: J01.90; Problem Code Type: ICD-10; MARY RAZIAELIZABETH dunn, [employer]. 11:49:03 Otitis externa 6306011 Completed 201702/14/2018 Problem Code: H60.339; Problem Code Type: ICD-10; Not Available [facility] 22:26:39 Acute sinusiti s 20539188 Completed 201701/02/2018 Problem Code: J01.90; Problem Code Type: ICD-10; MARY RAZIAELIZABETH dunn, [employer]. 11:49:03 Nausea and vomiting 94251242 Completed 201702/14/2018 Problem Code: R11.2; Problem Code Type: ICD-10; Not Available [facility] 22:26:48 Acute swimmer' s ear Completed 201702/14/2018 Problem Code: 380.12; Problem Code Type: ICD-9; Not Available [facility] 22:27:04 Nausea 474185671 Completed 201811/26/2018 Problem Code: R11.0; Problem Code Type: ICD-10; Not Available [facility] 22:26:47 Generali zed abdomina l pain 979337056 Completed 201811/26/2018 Problem Code: R10.84; Problem Code Type: ICD-10; Not Available [facility] 22:26:46 Nausea and vomiting 88011148 Completed 201811/26/2018 Problem Code: R11.2; Problem Code Type: ICD-10; Not Available [facility] 09/05/202 2 22:26:47 Abdomina l bloating 015133572 Completed 201811/17/2021 Problem Code: R14.0; Problem Code Type: ICD-10; MARY dunn, [employer] 2 11:49:02 Generali zed anxiety disorder 54918734 Active 2018 Problem Code: F41.1; Problem Code Type: ICD-10; Not Available [facility] 2 22:26:38 Chronic post-tra umatic stress disorder 392279423 Completed 201811/26/2018 Problem Code: F43.12; Problem Code Type: ICD-10; Not Available [facility] 2 22:26:38 Acute sinusiti s 22760965 Completed 201811/26/2018 Problem Code: J01.90; Problem Code Type: ICD-10; MARY RANDLEELIZABETH dunn, [employer] 2 11:49:03 Onycholy sis 17089809 Completed 201811/26/2018 Problem Code: L60.1; Problem Code Type: ICD-10; Not Available [facility] 2 22:26:44 Renal angle tenderne ss 937570024 Completed 201811/17/2021 Problem Code: R10.821; Problem Code Type: ICD-10; MARY dunn, [employer] 2 11:49:02 Dehydrat ion 25664857 Completed 201811/26/2018 Problem Code: E86.0; Problem Code Type: ICD-10; Not Available [facility] 2 22:26:38 Low blood pressure 67567523 Completed 201811/26/2018 Problem Code: I95.9; Problem Code Type: ICD-10; Naya Goodwin APRN [address] [place] [address], [address] , [employer] 5 15:57:42 Screenin g mammogra phy Completed 201811/26/2018 Problem Code: Z12.31; Problem Code Type: ICD-10; MARY dunn, [employer]. 2 11:49:03 Influenz a vaccine needed 16923648530 06 Completed 201811/17/2021 Problem Code: Z23; Problem Code Type: ICD-10; MARY dunn, [employer] 2 11:49:02 Snoring 15261245 Completed 201809/24/2019 Problem Code: R06.83; Problem Code Type: ICD-10; Not Available [facility] 2 22:26:46 Hemorrho ids 74729422 Completed 201809/24/2019 Problem Code: K64.9; Problem Code Type: ICD-10; Not Available [facility] 2 22:26:43 Acute sinusiti s 59382744 Completed 201809/04/2019 Problem Code: J01.90; Problem Code Type: ICD-10; MARY dunn, [employer] 2 11:49:03 General examinat ion of patient Completed 201907/11/2020 MARY dunn, [employer] 2 11:49:03 Body mass index 20-24 - normal 527764920 Active 2019 Not Available [facility] 2 22:26:59 Low blood pressure 80136034 Completed 201911/06/2019 Problem Code: I95.9; Problem Code Type: ICD-10; Naya Goodwin, [employer] [address] [place] [address], [address] , [employer] 5 15:57:42 Function al diarrhea 16657170 Completed 201911/06/2019 Problem Code: K59.1; Problem Code Type: ICD-10; Not Available [facility] 2 22:26:42 Influenz a 7174509 Completed 201911/17/2021 Problem Code: J10.1; Problem Code Type: ICD-10; MARY DIAZR null, [employer] 2 11:49:03 Pyrexia of unknown origin 1677826 Completed 201909/04/2019 Problem Code: R50.9; Problem Code Type: ICD-10; MARY DIZAR null, [employer] 2 11:49:03 Nausea 171437326 Completed 201909/04/2019 Problem Code: R11.0; Problem Code Type: ICD-10; Not Available [facility] 2 22:26:47 Acute sinusiti s 71775017 Completed 201909/24/2019 Problem Code: J01.90; Problem Code Type: ICD-10; MARY DIAZR null, [employer] 2 11:49:03 Vitamin D deficien cy 07703899 Active 2019 Problem Code: E55.9; Problem Code Type: ICD-10; Not Available [facility] 2 22:26:38 Dysplasi a of vulva 797396894 Completed 201908/31/2021 Problem Code: N90.3; Problem Code Type: ICD-10; Not Available [facility] 2 22:26:45 Screenin g mammogra phy Completed 201911/06/2019 Problem Code: Z12.31; Problem Code Type: ICD-10; MARY DIAZR null, [employer] 2 11:49:03 Current drug user 444041688 Completed 201911/06/2019 Problem Code: Z79.899; Problem Code Type: ICD-10; Naya Goodwin APRN [address] [place] [address], [address] , [employer] 4 08:41:04 Acute pansinus itis 0176682 Completed 201911/17/2021 Problem Code: J01.41; Problem Code Type: ICD-10; MARY RAZIANEAR null, [employer]. 2 11:49:03 Influenz a vaccine needed 20248629095 06 Completed 201912/25/2019 Problem Code: Z23; Problem Code Type: ICD-10; MARY DIAZR null, [employer] 2 11:49:02 Low blood pressure 78890132 Completed 201908/31/2021 Problem Code: I95.9; Problem Code Type: ICD-10; Naya Goodwin, [employer] [address] [place], [address] , [employer]. 5 15:57:42 Acute pansinus itis 7788957 Completed 201903/17/2020 Problem Code: J01.41; Problem Code Type: ICD-10; MARY RANDLENEAR null, [employer]. 2 11:49:03 Tobacco dependen ce caused by cigarett es 97800953143 022825 Active 2020 Problem Code: F17.210; Problem Code Type: ICD-10; Not Available [facility] 2 22:26:38 General examinat ion of patient Completed 202007/11/2020 MARY DIAZR null, [employer] 2 11:49:03 Body mass index 20-24 - normal 208150570 Completed 202007/11/2020 Not Available [facility] 2 22:26:59 Dysuria 36520922 Completed 202011/17/2021 Problem Code: R30.0; Problem Code Type: ICD-10; MARY RAZIANEAR null, [employer] 2 11:49:03 Acute sinusiti s 16204359 Completed 202011/17/2021 Problem Code: J01.90; Problem Code Type: ICD-10; MARY RAZIANEAR null, [employer] 2 11:49:03 Lumbosac ral radiculo aiden 4601562 Active 2020 Problem Code: M54.16; Problem Code Type: ICD-10; Not Available [facility] 22:27:02 Irritabl e bowel syndrome 48670095 Active 2020 Problem Code: K58.2; Problem Code Type: ICD-10; Naya Goodwin, [employer] [address] [place], [address] , [employer] 16:08:54 Screenin g mammogra phy Completed 202011/17/2021 Problem Code: Z12.31; Problem Code Type: ICD-10; MARY CANTOR null, [employer]. 11:49:03 Ingrowin g nail 679870586 Completed 202008/31/2021 Problem Code: L60.0; Problem Code Type: ICD-10; Not Available [facility] 22:26:43 Disorder of upper respirat ory system 649091412 Completed 202011/17/2021 Problem Code: J06.9; Problem Code Type: ICD-10; MARY CANTOR null, [employer] 11:49:03 Otogenic otalgia 43200176 Completed 202012/04/2021 LYNDSEY BARTLETT null, [employer] 08:50:49 Allergic rhinitis 39329778 Completed 202011/17/2021 Problem Code: J30.9; Problem Code Type: ICD-10; MARY CANTOR null, [employer] 11:49:03 Influenz a vaccine needed 51933616135 06 Completed 202008/31/2021 Problem Code: Z23; Problem Code Type: ICD-10; MARY RANDLENEAR null, [employer] 11:49:02 Benign paroxysm al position al vertigo or nystagmu s 024732761 Completed 202111/17/2021 MARY dunn, [employer]. 11:49:03 General examinat ion of patient Completed 202111/17/2021 MARY dunn, [employer] 11:49:03 Acute sinusiti s 97961250 Completed 202108/31/2021 Problem Code: J01.90; Problem Code Type: ICD-10; MARY dunn, [employer] 11:49:03 Dizzines s and giddines s 792269833 Completed 202108/31/2021 Problem Code: R42; Problem Code Type: ICD-10; MARY dunn, [employer] 11:49:03 Headache 64659358 Completed 202111/17/2021 Problem Code: R51; Problem Code Type: ICD-10; MARY dunn, [employer] 11:49:03 Chronic fatigue syndrome 14167602 Completed 202108/31/2021 Problem Code: R53.82; Problem Code Type: ICD-10; Not Available [facility] 22:26:51 Exposure to SARS-CoV -2 Completed 202111/17/2021 Problem Code: Z20.822; Problem Code Type: ICD-10; MARY dunn, [employer] 11:49:03 Dizzines s and giddines s 635695672 Completed 202111/17/2021 Problem Code: R42; Problem Code Type: ICD-10; MARY CANTOR null, [employer] 11:49:03 Acute non-supp urative serous otitis media 801147338 Completed 202111/17/2021 Problem Code: H65.01; Problem Code Type: ICD-10; MARY CANTOR null, [employer] 2 11:49:03 Influenz a 9878937 Completed 202108/31/2021 Problem Code: J10.1; Problem Code Type: ICD-10; MARY DIAZR null, [employer] 2 11:49:03 Choleste rol screenin g Completed 202108/31/2021 MARY CANTOR null, [employer] 2 11:49:36 Low blood pressure 08126604 Completed 202108/31/2021 Problem Code: I95.9; Problem Code Type: ICD-10; Naya Goodwin APRN [address] [place] [address], [address] , [employer] 5 15:57:42 Pyrexia of unknown origin 1847876 Completed 202111/17/2021 Problem Code: R50.9; Problem Code Type: ICD-10; MARY CANTOR null, [employer] 2 11:49:03 Tick-bor ne relapsin g fever 41493345 Completed 202111/17/2021 Problem Code: A68.1; Problem Code Type: ICD-10; MARY CANTOR null, [employer] 2 11:49:02 Candidia sis of vagina 86172721 Active 2024 Naya Goodwin APRN [address] [place] [address], [address] , [employer] 5 10:26:24 Cobalami n deficien cy 735857586 Active 2024 Naya Goodwin APRN [address] [place] [address], [address] , [employer] 5 10:28:44 Vertigo 065523859 Active 2024 Naya Goodwin APRN [address] [place] [address], [place], [address] , [employer] 5 10:06:33 Chronic vertigo 61480862550 105 Active 2024 Naya Goodwin, [employer] [address] [place], [address] , [employer] 5 16:48:18 Problem Notes None recorded. Procedures Surgical History Date Name Laterality Status Provider Name and Address Organization Details Recorded Time 11/01/19 24 Most Recent Mammogram completed [employer] 12/12/2023 11:29:34 09/29/19 23 Date of Last Pap Smear completed [employer] 04/04/2023 14:50:35 04/05/19 23 Suture/Staple removal completed Naya Goodwin APRN [address] [place], [address], [employer] 04/05/2022 09:45:46 03/25/19 21 Tlh uterus 250 g or less completed Not Available [facility] 11/03/2021 22:56:26 06/07/19 19 cholecystectomy completed Not Available [facility] 11/03/2021 22:56:26 Hysterectomy completed [employer] 11/17/2021 11:54:15 Appendectomy completed [employer] 11/17/2021 11:54:25 Imaging Results None recorded. Procedure Notes None recorded. Medical Equipment None Reported. Allergies Allergen ID Allergen Name Allergen Category Reaction Reaction Severity Criticality Documentation Date Start Date Code Code System Note Provider Name and Address Organization Details Recorded Time 54112 Product containin g penicilli n (product) medicatio n Not available Not available Not available 11/03/2021 07785 8001 SNOMED LYNDSEY BARTLETT mona [employer] 08:48:34 88600 sulfameth oxazole medicatio n Not available Not available Not available 11/03/2021 06707 RxNorm Not Available [facility] 22:57:14 99041 Chantix medicatio n Not available Not available Not available 11/03/2021 32846 0 RxNorm Not Available [facility] 2 22:57:14 Medications Name Sig Start Date [...] Not Available Not Available Not Available dextrometho lidia enesin 10 mg-100 mg/5 mL oral syrup [...] Details Last Updated DateTime 5 157.48 cm 24.9 kg/m2 87857.2 8 g 98 [degF] 89 /min 93 % 93 % 131/56 mm[Hg] MARY CANTOR [employer] 16:45:26 Social History Question Answer Notes LastModified by Organizat ion Details LastModified Time Tobacco Smoking Status Former Smoker LYNDSEY dunn [employer] 12/04/2021 08:51:44 Do You Have An Advance [...] Or The Highest Degree You Have Received? [id number] Information not available 11/17/2021 When Did You Quit Smoking? 1-5yearssinc elastcigaret te Information not available 11/17/2021 Are There Any Guns Present In Your Home? No Information not available 11/17/2021 Do You Have A Medical Power Of Counter Former? No Information not available 11/17/2021 What Was [...] Functional Status Question Answer Note LastModified by [employer] Details LastModified Time Do you use any [...] Mental Status Question Answer Note LastModified by [employer] Details LastModified Time Do you feel stressed (tense, restless, nervous, or anxious, or unable to sleep at night)? [id number] Information not available 02/27/2024 Do you have difficulty concentrating, remembering or making decisions? No Information no t available 11/17/2021 Family History Relationship Description Onset Age of this Age Resolved Age Notes LastModified by Organization Details LastModified Time Father No current problems or disability [id number] Not available 09:44:05 Mother No current problems or disability [email or web address] Not available 09:44:05 Medical History Condition Response [...] virus, quadrivalent, PF 3 completed Allegra Stephens, [employer] [address] [place], [address], [employer] 12/03/2022 10:26:06 COVID-19, mRNA, LNP-S, PF, 100 mcg/0.5mL dose or 50 mcg/0.25mL dose 1 completed MARY dunn, [employer] 04/05/2022 09:07:25 COVID-19, mRNA, LNP-S, PF, 100 mcg/0.5mL dose or 50 mcg/0.25mL dose 1 completed MARY dunn, [employer] 04/05/2022 09:07:25 Influenza, split virus, quadrivalent, preservative 8 completed Not Available [facility] 11/03/2021 22:57:21 Influenza, split virus, quadrivalent, PF 1 completed Not Available [facility] 11/03/2021 22:57:21 Influenza, split virus, quadrivalent, PF 0 completed Not Available [facility] 11/03/2021 22:57:22 Influenza, split virus, trivalent, preservative 7 completed Not Available [facility] 04/04/2023 14:24:12 Influenza, split virus, trivalent, preservative 9 completed Not Available [facility] 04/04/2023 14:24:12 Hep A, adult 8 completed [facility] 11/03/2021 22:57:23 Hep A, adult 9 completed Not Available [facility] 11/03/2021 22:57:23 COVID-19, mRNA, LNP-S, PF, caprice-sucrose, 30 mcg/0.3 mL 4 completed Gabrielle Butler null, [employer] 01/27/2024 16:27:56 Influenza, split virus, trivalent, PF 4 completed Naya Goodwin APRN [address] [place] [address], [address], [employer] 12/12/2023 12:03:17 Influenza, split virus, quadrivalent, preservative 9 completed MARY MYNEAR null, [employer] 04/05/2022 09:07:25 Influenza, split virus, quadrivalent, preservative 6 completed MARY MYNEAR null, [employer] 04/05/2022 09:07:25 Influenza, MDCK, quadrivalent, PF 2 completed MARY MYNEAR null, [employer] 04/05/2022 09:07:25 COVID-19, mRNA, LNP-S, PF, 100 mcg/0.5mL dose or 50 mcg/0.25mL dose 2 completed MARY MYNEAR null, [employer] 04/05/2022 09:07:25 COVID-19, mRNA, LNP-S, PF, 100 mcg/0.5mL dose or 50 mcg/0.25mL dose 1 completed MARY MYNEAR null, [employer] 04/05/2022 09:07:25 Influenza, split virus, trivalent, PF 5 completed MARY MYNEAR null, [employer] 12/19/2024 10:54:02 Past Encounters Encounter ID Performer Location Encounter Start Date Encounter Closed Date Diagnosis/Indication Diagnosis SNOMED-CT Code Diagnosis ICD10 Code Diagnosis IMO Codes Diagnosis Note [id number] Naya Goodwin APRN [address] [address] 12/19/2024 09:37:34 12/19/2024 10:29:58 Vertigo 223936143 R42 31382 Candidiasis of vagina 72 046318 B37.31 Influenza vaccination given 9748098561 9109 Z23 05405303 Screening mammography 24 373879 Z12.31 27845295 Ex-cigarette smoker 6040 66025 Z87.891 314669 Quit smoking 4 years ago - needs LDCT [id number] Naya Goodwin APRN [address] [address] 01/07/2025 16:35:27 01/07/2025 17:18:49 Chronic vertigo 9411638106 9105 R42 67680390 Continue meclizine prn and keep ENT follow up. Moderate r ecurrent major depression 21594031 F33.1 Continue Buspar and decrease lexapro to 10 mg daily Health Concerns Section Related Observation LastModified by Organization Detai ls LastModified Time None Recorded Concern Status LastModified by Organization Details LastModified Time None Recorded Payers Encounter Date Sequence Insurance Name Policy Number Policy Rhodes Covered Member ID Rhodes Member ID Guarantor Name 01/07/2025 1 [place] [employer] (MEDICARE REPLACEMENT HMO) [id number] Luna Foreman [id number] Luna Sweet Notes Date Note Type Note Provider Name and Address Organization Details Recorded Time 01/07/2025 text/html ROS as noted in the HPI Chief ComplaintOngoing vertigo since November 12 with intermittent dizziness, ear pain, difficulty sleeping due to vertigo symptomsHistory of Present IllnessLuna Foreman is a postmenopausal woman presenting for follow-up of ongoing vertigo that began on November 12. She reports significant improvement in her vertigo symptoms since her last visit, though she still experiences dizziness at times. She saw Audiology and ENT on January 02 where her hearing was found to be good, but the computer education teacher believes crystals caused her vertigo. The Cheryle-Hallpike maneuver was performed with her right ear being the most reactive. She followed instructions to sleep upright for 2 nights and has elevated her bed so she's not lying flat. She favors one side due to previous back surgery and associated numbness.Regarding her Lexapro for anxiety, she admits she hasn't been taking her 20 mg daily dose because it was causing weight gain. Her last fill was October 25 for a 90-day supply. She uses Flonase twice daily and was recently instructed to use the opposite hand for the opposite nostril, which she hadn't been paying attention to previously. Naya Goodwin APRN [address] [facility], [place], [address], [facility] [employer] 01/07/2025 17:28:18 OBGyn Episode No OBEpisode recorded.
--- OUTSIDE RECORDS SUMMARY | 2025-01-08 07:52 | XMS_ITS | Encounter Summary ---
Author Organization Healthcare Address [address] [place] [address] Care Team Providers Care Layout Worker Name Role Phone Naya Goodwin DRAPERY CUTTER Primary Care Provider + [phone] Chelsey Mascorro Unavailable Yong Mata MD Unavailable Malena Burton APRN Unavailable [phone] Encounter Details Date Type Department Care Team (Late Contact Info) Description 05/01/2021 Telephone [facility] Interventional Radiology [address] [place] [address] Erin Dolan RN CH-VASCULAR & INTERVENTIONAL RADIOLOGY [...] Description 03/06/2025 1:00 PM EST Clinical Support Professional [facility] Laboratory Services [address], [address] [place] [address] 03/20/2025 11:20 AM EST Pharmacist Visit [facility] [address], [address] [place] [address] Neil Saladna, PharmD [address] [place] [address] 03/27/2025 1:00 PM EST Office Visit [facility] [address], [address] [place] [address] Malena Burton E, DRAPERY CUTTER [address] [place] [address] 04/17/2025 2:00 PM EST Office Visit [facility] [address] [place] [address] ChristyNevaeh romero S, DRAPERY CUTTER [address] [place] [address] 04/25/2025 1:30 PM EST Office Visit [facility] [address], [address] [place] [address] Arnav Ibarra MD [address] [place] [address] documented as of this encounter [...] documented as of this encounter Care Teams Layout Worker Relationship Specialty Start Date End Date Naya Goodwin, DRAPERY CUTTER [address] [phone] PCP - General 07/11/20 Chelsey Mascorro [address] [facility] [place] [address] Referring Physician Gynecology 01/19/21 Yong Mata MD [facility] [address] [place] [address] Surgeon Pain Medicine 05/12/21 Malena Burton APRN [id number] [place] [address] Nurse Practitioner Urology 06/09/23 documented as of this encounter
--- OUTSIDE RECORDS SUMMARY | 2025-01-08 07:53 | XMS_ITS | Continuity of Care Document ---
Author Organization [address] Address [address] [address] [place] [address] Care Team Providers Care Rotary Driller Prospecting Name Role Phone LALO REYNOLDS Patrol Captain DARREN GUTIERREZ Primary Care Provider Assessment No assessment recorded. Plan of Treatment Reminders Order Date Submit Date Provider Last Modified By Organization Details Last Modified Time Details Appointments DERM ESTABLISH ED 2024 10:50A M NATALIE REYNOLDS PA-C Not available Not available Not available RECHECK 2024 09:30A M PHI LUNA TECHNICAL PUBLICATIONS MANAGER Not available Not available Not available Lab None recorded. Referral None recorded. Procedures None recorded. Surgeries None recorded. Imaging None recorded. Medication Orders meclizine [address] [facility], [address] [place] [address], [id number], 01/02/2025 14:47:35 Patient TargetsNo targets recorded. Patient Instructions Encounter Date Encounter Id Patient Instructions Last Modified By Organization Details Last Modified Time 01/02/2025 [id number] 1. Audiogram obtained in office today. Results discussed with patient. 2. Negative Cheryle-Hallpike but subjective vertigo experienced on the right. 3. Right CRP performed and post-maneuver restrictions reviewed. 4. Rx - Meclizine 25 mg three times day as needed - per patient request for symptom management 5. F/u 2-3 weeks - will perform a second CRP and refer to vestibular therapy if needed [facility] ENT MD Balaji Prakash Not available 01/02/2025 14:36:00 Ears clear on exam today - suspect referred otalgia from neck pain - neck pain possibly from compensation due to BPPV. Will reassess right otalgia at next visit. [place]-Hallpike negative on exam but patient reported vertigo on the right; negative exam likely due to patient taking Meclizine this morning. [email or web address] Not available 01/02/2025 14:37:29 Reason for Referral [...] Time 01/03/20 Tympanogram completed PATRICK BELLAMY [address] [place], [address], [facility] 01/02/2025 11:45:19 01/03/20 Audiogram completed PATRICK BELLAMY[address] [place], [place], [address] [place] [address], [facility] 01/02/2025 11:45:18 01/03/20 Canalith Repositioning Procedure completed PHI LUNA APRN [address] [place], [place], [address] [place] [address], [facility] 01/02/2025 14:26:36 01/03/20 25 Cheryle-Hallpike completed PHI LUNA APRN [address] [place], [place], [address] [place] [address], [facility] 01/02/2025 14:27:23 operation on vertebra completed Lanette Vargas [facility] 06/25/2024 11:24:36 Imaging Results None recorded. Procedure Notes None recorded. Medical Equipment None Reported. Allergies Allergen ID Allergen Name Allergen Category Reaction Reaction Severity Criticality Documentation Date Start Date Code Code System Note Provider Name and Address Organization Details Recorded Time 199173 Product containin g penicilli n (product) medicatio n Not available Not available Not available 01/23/20162012 32035 8605 SNOMED Comme nt: Creat ed By: Kevin fountain Date: 2012 11:16 :28 AM; Not Available [facility] 6 03:21:26 [id number] Substance with sulfonami de structure and antibacte rial mechanism of action (substanc e) medicatio n Not available Not available Not available 01/02/2025 30068 8003 [facility] Medications Name Sig Start Date Stop Date Status Note LastModified by Organization Details LastModified Time Retin-A 0.05 % topical cream APPLY TO THE AFFECTED AREA(S) BY TOPICAL ROUTE ONCE DAILY AT BEDTIME 01/02 completed pt requeste [facility]ie [facility] pharmacy Not Available Not Available Not [...] Relief 50 mcg/actua tion nasal spray,brandon pension [place] 1 spray twice a day by intranas [...] cm 1.5 kg/m2 3628.74 g 132/98 mm[Hg] [facility] 12:10:56 Social History Question Answer Notes [...] Information not available 01/02/2025 Sunscreen Use? Yes [email or web address] Informatio n not available 06/25/2024 Tanning Bed Use No [email or web address] Informati on not available 06/25/2024 What Was The Date Of Your Most Recent Tobacco Screening? 06/25/2024 [email or web address] Information not available 06/25/2024 At What Age [...] virus, quadrivalent, preservative 6 completed Not Available [facility] 01/02/2025 11:45:59 Influenza, split virus, quadrivalent, preservative 8 completed Not Available [facility] 01/02/2025 11:45:59 Hep A, adult 8 completed Not Available [facility] 01/02/2025 11:45:59 Hep A, adult 9 completed [facility] 01/02/2025 11:45:59 Influenza, split virus, quadrivalent, preservative 9 completed Not Available [facility] 01/02/2025 11:45:59 Influenza, split virus, quadrivalent, PF 0 completed [facility] 01/02/2025 11:45:59 COVID-19, mRNA, LNP-S, PF, 100 mcg/0.5mL dose or 50 mcg/0.25mL dose 1 completed Not Available [facility] 01/02/2025 11:45:59 COVID-19, mRNA, LNP-S, PF, 100 mcg/0.5mL dose or 50 mcg/0.25mL dose 1 completed Not Available [facility] 01/02/2025 11:45:59 Influenza, split virus, quadrivalent, PF 1 completed Not Available [facility] 01/02/2025 11:45:59 COVID-19, mRNA, LNP-S, PF, 100 mcg/0.5mL dose or 50 mcg/0.25mL dose 1 completed Not Available [facility] 01/02/2025 11:45:59 COVID-19, mRNA, LNP-S, PF, 100 mcg/0.5mL dose or 50 mcg/0.25mL dose 2 completed Not Available [facility] 01/02/2025 11:45:59 Influenza, MDCK, quadrivalent, PF 2 completed Not Available [facility] 01/02/2025 11:45:59 Influenza, split virus, quadrivalent, PF 3 completed Not Available [facility] 01/02/2025 11:45:59 COVID-19, mRNA, LNP-S, PF, caprice-sucrose, 30 mcg/0.3 mL 4 completed Not Available [facility] 01/02/2025 11:45:59 Influenza, split virus, trivalent, PF 4 completed Not Available [facility] 01/02/2025 11:45:59 Influenza, split virus, trivalent, PF 5 completed Not Available [facility] 01/02/2025 11:45:59 Past Encounters Encounter ID Performer Location Encounter Start Date Encounter Closed Date Diagnosis/Indication Diagnosis SNOMED-CT Code Diagnosis ICD10 Code Diagnosis IMO Codes Diagnosis Note [id number] PHI LUNA, TECHNICAL PUBLICATIONS MANAGER [place] [facility] [address] [place] [address] 01/02/2025 11:33:03 01/02/2025 14:39:40 Benign paroxysmal positional vertigo 172432008 H81.11 [id number] Referred o talgia of right ear 2519725194 227956 H92.01 [id number] -likely referred from neck pain Sensorineu ral hearing loss of bilateral ears 034210298 H90.3 [id number] 01/02/25: Right - mild HF loss, Ad tymp; Left - moderate HF loss, Ad tymp; bilateral WDS 100% Ear pressu re sensation 944850021 H93.8X1 [id number] CHRISTOFER SANTANA, AUD [place] [facility] [address] [place] [address] 01/02/2025 11:44:18 01/03/2025 21:19:05 Sensorineural hearing loss of bilateral ears 699205951 H90.3 71351085 Dizziness 046887651 R42 93720 Ear pressu re sensation 169717858 H93.8X3 75444547 Bilateral earache 998581 003 H92.03 [id number] Health Concerns Section Related Observation LastModified by Organization Detai ls LastModified Time None Recorded Concern Status LastModified by Organization Details LastModified Time None Recorded Payers Encounter Date Sequence Insurance Name Policy Number Policy Rhodes Covered Member ID Rhodes Member ID Guarantor Name 01/02/2025 1 [place]MEDICARE REPLACEMENT HMO) [id number] Luna Moreno Kellen [id number] Luna Tiffanie Kellen Notes Date Note Type Note [...] She was seen in the ER at [facility] and reports a CT of her head [...] She denies hx of migraines. PHI LUNA, TECHNICAL PUBLICATIONS MANAGER [address] [place], [address], [place] [facility] 01/02/2025 16:42:54 OBGyn Episode No OBEpisode recorded.
--- OUTSIDE RECORDS SUMMARY | 2025-01-08 07:53 | XMS_ITS | Continuity of Care Document ---
Author Organization [email or web address] Jibbigo [facility] Address [address] [place] [address] Assessment Encounter Date Assessment Date Assessment LastModified [...] promethazin e 12.5 mg tablet 2024 025 [facility], [address] [place] [address], [id number], 16:51:21 meclizine 12.5 mg tablet 2024 025 [facility], [address] [place] [address], [id number], 05:01:08 promethazin e 25 mg/mL injection solution 2024 025 [email or web address] Not available 15:00:29 pantoprazol e 40 mg tablet,carlos yed release 2024 025 [facility], [address] [place] [address], [address], 16:38:14 Patient TargetsNo targets recorded. Patient InstructionsNo instructions recorded. Reason for Referral None Reported. Results Created Date Observation Date Name Description Value Unit Range Abnormal Flag Note LastModifiedBy Organization Detail LastModifiedTime 12/15/1912/14/2024 CT, head + brain , w/o contr ast No observ ation record ed. [email or web address] [facility] [address], [place], [address], 12/17/2024 09:08:23 12/15/1912/14/2024 CT, angio gram, neck, w/ contr ast No observ ation record ed. [address], [place], [address], 12/17/2024 09:08:06 12/15/1912/14/2024 CT, angio gram, head, w/wo contr ast No observ ation record ed. [address], [place], [address], 12/17/2024 09:07:32 12/15/1912/14/2024 elect christina amin am ne ECG, 12 leads min No observ ation record ed. [address], [place], [address], 12/17/2024 09:07:13 Result Notes None recorded. Problems Name Problem SNOMED Code Status Onset Date Resolution Date Notes Provider Name and Address Organization Details Recorded Time Major depressi on, single episode 64114962 Completed 201605/19/2017 Problem Code: F32.9; Problem Code Type: ICD-10; Not Available [facility] 2 22:26:38 Moderate recurren t major depressi on 70310289 Completed 201611/26/2018 Problem Code: F33.1; Problem Code Type: ICD-10; Not Available [facility] 2 22:26:38 Lumbosac ral radiculo aiden 2545145 Completed 201611/17/2017 Problem Code: M54.16; Problem Code Type: ICD-10; Not Available [facility] 2 22:26:44 Low back pain 042923854 Completed 201611/17/2017 Problem Code: 724.2; Problem Code Type: ICD-9; Naya Goodwin APRN [address] [place] [address], [address] , [facility] [employer] 4 08:40:49 Chronic obstruct mitesh pulmonar y disease 36528796 Completed 201607/11/2020 Problem Code: 496; Problem Code Type: ICD-9; Not Available [facility] 22:27:12 Influenz a 8959312 Completed 201704/08/2017 Problem Code: J10.1; Problem Code Type: ICD-10; MARY dunn, [employer] 2 11:49:03 Influenz a with non-resp iratory manifest ation 32018418 Completed 201704/08/2017 Problem Code: 487.8; Problem Code Type: ICD-9; Not Available [facility] 22:27:11 Generali zed anxiety disorder 15707107 Completed 201708/17/2017 Problem Code: F41.1; Problem Code Type: ICD-10; Not Available [facility] 2 22:26:38 Gastroes ophageal reflux disease without esophagi tis 860329992 Completed 201711/17/2021 MARY RAZIAELIZABETH dunn, [employer] 2 11:49:03 Gastro-e sophagea l reflux disease with esophagi tis 742983968 Active 2017 Problem Code: K21.0; Problem Code Type: ICD-10; Not Available [facility] 2 22:27:00 Gastroes ophageal reflux disease 308614295 Completed 201707/11/2020 Problem Code: 530.81; Problem Code Type: ICD-9; Not Available [facility] 22:27:07 Moderate recurren t major depressi on 82807640 Active 2017 Problem Code: F33.1; Problem Code Type: ICD-10; Not Available [facility] 22:26:38 Chronic post-tra umatic stress disorder 461801493 Completed 201708/19/2017 Problem Code: F43.12; Problem Code Type: ICD-10; Not Available [facility] 22:26:38 Post-tra umatic stress disorder 14627680 Active 2017 Problem Code: F43.10; Problem Code Type: ICD-10; Not Available [facility] 22:26:39 Sleep behavior finding 159768516 Completed 201711/17/2017 Not Available [facility] 22:26:39 Chronic pain syndrome 914574928 Active 2017 Problem Code: G89.4; Problem Code Type: ICD-10; Not Available [facility] 22:26:39 Sarah buchanan screenyoanna g Completed 201711/17/2017 MARY dunn [employer]. 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 83196078 Completed 201707/11/2020 Problem Code: 053.12; Problem Code Type: ICD-9; Not Available [facility] 22:27:02 Organic sleep disorder 241812899 Completed 201711/17/2017 Problem Code: 327.8; Problem Code Type: ICD-9; Not Available [facility] 22:27:06 Asthenia 84119312 Completed 201711/17/2017 Problem Code: R53.1; Problem Code Type: ICD-10; Not Available [facility] 22:27:08 Malaise and fatigue 566869572 Completed 201711/17/2017 Problem Code: 780.79; Problem Code Type: ICD-9; Not Available [facility] 22:27:09 Hyperlip idemia ezequiel g Completed 201711/17/2017 Problem Code: V77.91; Problem Code Type: ICD-9; Not Available [facility] 22:27:09 Herpesvi uzma infectio n 42788505 Completed 201711/26/2018 Problem Code: A60.09; Problem Code Type: ICD-10; Not Available [facility] 22:26:37 Genital herpes simplex 80771828 Completed 201707/11/2020 Problem Code: 054.19; Problem Code Type: ICD-9; Not Available [facility] 22:27:01 Acute sinusiti s 45668620 Completed 201712/01/2017 Problem Code: J01.90; Problem Code Type: ICD-10; MARY RAZIAELIZABETH dunn, [employer] 11:49:03 Otitis externa 2103538 Completed 201702/14/2018 Problem Code: H60.339; Problem Code Type: ICD-10; Not Available [facility] 22:26:39 Acute sinusiti s 95134801 Completed 201701/02/2018 Problem Code: J01.90; Problem Code Type: ICD-10; MARY RAZIAELIZABETH dunn, [employer] 11:49:03 Nausea and vomiting 32577569 Completed 201702/14/2018 Problem Code: R11.2; Problem Code Type: ICD-10; Not Available [facility] 22:26:48 Acute swimmer' s ear Completed 201702/14/2018 Problem Code: 380.12; Problem Code Type: ICD-9; Not Available [facility] 22:27:04 Nausea 185823356 Completed 201811/26/2018 Problem Code: R11.0; Problem Code Type: ICD-10; Not Available [facility] 22:26:47 Generali zed abdomina l pain 923521194 Completed 201811/26/2018 Problem Code: R10.84; Problem Code Type: ICD-10; Not Available [facility] 22:26:46 Nausea and vomiting 28259031 Completed 201811/26/2018 Problem Code: R11.2; Problem Code Type: ICD-10; Not Available [facility] 22:26:47 Abdomina l bloating 704745151 Completed 201811/17/2021 Problem Code: R14.0; Problem Code Type: ICD-10; MARY dunn, [employer] 2 11:49:02 Generali zed anxiety disorder 59555459 Active 2018 Problem Code: F41.1; Problem Code Type: ICD-10; Not Available [facility] 2 22:26:38 Chronic post-tra umatic stress disorder 086356870 Completed 201811/26/2018 Problem Code: F43.12; Problem Code Type: ICD-10; Not Available [facility] 2 22:26:38 Acute sinusiti s 22173624 Completed 201811/26/2018 Problem Code: J01.90; Problem Code Type: ICD-10; MARY CANTOR null, [employer] 11:49:03 Onycholy sis 69222784 Completed 201811/26/2018 Problem Code: L60.1; Problem Code Type: ICD-10; Not Available [facility] 22:26:44 Renal angle tenderne ss 807773280 Completed 201811/17/2021 Problem Code: R10.821; Problem Code Type: ICD-10; MARY CANTOR null, [employer] 11:49:02 Dehydrat ion 55139198 Completed 201811/26/2018 Problem Code: E86.0; Problem Code Type: ICD-10; Not Available [facility] 22:26:38 Low blood pressure 10307237 Completed 201811/26/2018 Problem Code: I95.9; Problem Code Type: ICD-10; Naya Goodwin, [employer] [address] [place] [address], [address] , [employer] 5 15:57:42 Screenin g mammogra phy Completed 201811/26/2018 Problem Code: Z12.31; Problem Code Type: ICD-10; MARY CANTOR null, [employer] 2 11:49:03 Influenz a vaccine needed 19020051149 06 Completed 201811/17/2021 Problem Code: Z23; Problem Code Type: ICD-10; MARY CANTOR null, [employer] 2 11:49:02 Snoring 96705318 Completed 201809/24/2019 Problem Code: R06.83; Problem Code Type: ICD-10; Not Available [facility] 2 22:26:46 Hemorrho ids 45915652 Completed 201809/24/2019 Problem Code: K64.9; Problem Code Type: ICD-10; Not Available [facility] 2 22:26:43 Acute sinusiti s 39170067 Completed 201809/04/2019 Problem Code: J01.90; Problem Code Type: ICD-10; MARY DIAZR null, [employer] 2 11:49:03 General examinat ion of patient Completed 201907/11/2020 MARY CANTOR null, [employer] 2 11:49:03 Body mass index 20-24 - normal 622504356 Active 2019 Not Available [facility] 2 22:26:59 Low blood pressure 46811768 Completed 201911/06/2019 Problem Code: I95.9; Problem Code Type: ICD-10; Naya Goodwin, [employer] [address] [place] [address], [address] , [employer] 5 15:57:42 Function al diarrhea 30912790 Completed 201911/06/2019 Problem Code: K59.1; Problem Code Type: ICD-10; Not Available [facility] 2 22:26:42 Influenz a 7857344 Completed 201911/17/2021 Problem Code: J10.1; Problem Code Type: ICD-10; MARY DIAZR null, [employer] 2 11:49:03 Pyrexia of unknown origin 6930231 Completed 201909/04/2019 Problem Code: R50.9; Problem Code Type: ICD-10; MARY CANTOR null, [employer] 2 11:49:03 Nausea 807160980 Completed 201909/04/2019 Problem Code: R11.0; Problem Code Type: ICD-10; Not Available [facility] 2 22:26:47 Acute sinusiti s 75938522 Completed 201909/24/2019 Problem Code: J01.90; Problem Code Type: ICD-10; MARY DIAZR null, [employer] 2 11:49:03 Vitamin D deficien cy 61280016 Active 2019 Problem Code: E55.9; Problem Code Type: ICD-10; Not Available [facility] 2 22:26:38 Dysplasi a of vulva 323201409 Completed 201908/31/2021 Problem Code: N90.3; Problem Code Type: ICD-10; Not Available [facility] 2 22:26:45 Screenin g mammogra phy Completed 201911/06/2019 Problem Code: Z12.31; Problem Code Type: ICD-10; MARY DIAZR null, [employer] 2 11:49:03 Current drug user 936629256 Completed 201911/06/2019 Problem Code: Z79.899; Problem Code Type: ICD-10; Naya Goodwin, [employer]GER [address] [place] [address], [address] , [employer] 4 08:41:04 Acute pansinus itis 2564816 Completed 201911/17/2021 Problem Code: J01.41; Problem Code Type: ICD-10; MARY MYJAYESHR null, [employer] 2 11:49:03 Influenz a vaccine needed 29459569543 06 Completed 201912/25/2019 Problem Code: Z23; Problem Code Type: ICD-10; MARY RANDLEJAYESHR null, [employer] 2 11:49:02 Low blood pressure 64287281 Completed 201908/31/2021 Problem Code: I95.9; Problem Code Type: ICD-10; Naya Goodwin, [employer] [address] [place], [address] , [employer] 5 15:57:42 Acute pansinus itis 1401351 Completed 201903/17/2020 Problem Code: J01.41; Problem Code Type: ICD-10; MARY DIAZR null, [employer] 2 11:49:03 Tobacco dependen ce caused by cigarett es 48662276749 433523 Active 2020 Problem Code: F17.210; Problem Code Type: ICD-10; Not Available [facility] 2 22:26:38 General examinat ion of patient Completed 202007/11/2020 MARY DIAZR null, [employer] 2 11:49:03 Body mass index 20-24 - normal 152558102 Completed 202007/11/2020 Not Available [facility] 2 22:26:59 Dysuria 86301422 Completed 202011/17/2021 Problem Code: R30.0; Problem Code Type: ICD-10; MARY RANDLENEAR null, [employer] 2 11:49:03 Acute sinusiti s 79661712 Completed 202011/17/2021 Problem Code: J01.90; Problem Code Type: ICD-10; MARY RAZIANEAR null, [employer] 2 11:49:03 Lumbosac ral radiculo aiden 9476639 Active 2020 Problem Code: M54.16; Problem Code Type: ICD-10; Not Available [facility] 2 22:27:02 Irritabl e bowel syndrome 94003530 Active 2020 Problem Code: K58.2; Problem Code Type: ICD-10; Naya Goodwin, [employer] [address] [place], [address] , [employer] 5 16:08:54 Screenin g mammogra phy Completed 202011/17/2021 Problem Code: Z12.31; Problem Code Type: ICD-10; MARY RAZIAELIZABETH null, [employer] 11:49:03 Ingrowin g nail 490128545 Completed 202008/31/2021 Problem Code: L60.0; Problem Code Type: ICD-10; Not Available [facility] 22:26:43 Disorder of upper respirat ory system 770380621 Completed 202011/17/2021 Problem Code: J06.9; Problem Code Type: ICD-10; MARY RAZIAELIZABETH null, [employer] 11:49:03 Otogenic otalgia 43164826 Completed 202012/04/2021 LYNDSEY BARTLETT null, [employer] 08:50:49 Allergic rhinitis 21161818 Completed 202011/17/2021 Problem Code: J30.9; Problem Code Type: ICD-10; MARY RAZIAJAYESHR null, [employer] 11:49:03 Influenz a vaccine needed 88553057241 06 Completed 202008/31/2021 Problem Code: Z23; Problem Code Type: ICD-10; MARY RAZIANEAR null, [employer] 2 11:49:02 Benign paroxysm al position al vertigo or nystagmu s 241492550 Completed 202111/17/2021 MARY DIAZR null, [employer] 2 11:49:03 General examinat ion of patient Completed 202111/17/2021 MARY dunn, [employer]. 11:49:03 Acute sinusiti s 01455308 Completed 202108/31/2021 Problem Code: J01.90; Problem Code Type: ICD-10; MARY dunn, [employer] 11:49:03 Dizzines s and giddines s 754688940 Completed 202108/31/2021 Problem Code: R42; Problem Code Type: ICD-10; MARY dunn, [employer]. 11:49:03 Headache 41997570 Completed 202111/17/2021 Problem Code: R51; Problem Code Type: ICD-10; MARY dunn, [employer]. 11:49:03 Chronic fatigue syndrome 24772024 Completed 202108/31/2021 Problem Code: R53.82; Problem Code Type: ICD-10; Not Available [facility] 22:26:51 Exposure to SARS-CoV -2 Completed 202111/17/2021 Problem Code: Z20.822; Problem Code Type: ICD-10; MARY dunn, [employer] 11:49:03 Dizzines s and giddines s 997820029 Completed 202111/17/2021 Problem Code: R42; Problem Code Type: ICD-10; MARY dunn, [employer]. 11:49:03 Acute non-supp urative serous otitis media 035851236 Completed 202111/17/2021 Problem Code: H65.01; Problem Code Type: ICD-10; MARY dunn, [employer] 11:49:03 Influenz a 1430557 Completed 202108/31/2021 Problem Code: J10.1; Problem Code Type: ICD-10; MARY DIAZR null, [employer] 2 11:49:03 Choleste rol screenin g Completed 202108/31/2021 MARY DIAZR null, [employer] 2 11:49:36 Low blood pressure 60846661 Completed 202108/31/2021 Problem Code: I95.9; Problem Code Type: ICD-10; Naya Goodwin APRN [address] [place] [address], [address] [place] [address] , [employer] 5 15:57:42 Pyrexia of unknown origin 4739694 Completed 202111/17/2021 Problem Code: R50.9; Problem Code Type: ICD-10; MARY CANTOR null, [employer] 2 11:49:03 Tick-bor ne relapsin g fever 57159778 Completed 202111/17/2021 Problem Code: A68.1; Problem Code Type: ICD-10; MARY CANTOR null, [employer] 2 11:49:02 Candidia sis of vagina 90567326 Active 2024 Naya Goodwin APRN [address] [place] [address], [address] [place] [address] , [employer] 5 10:26:24 Cobalami n deficien cy 368911416 Active 2024 Naya Goodwin APRN [address] [place] [address], [address] [place] [address] , [employer] 5 10:28:44 Vertigo 997563972 Active 2024 Naya Goodwin APRN [address] [place] [address], [address] [place] [address] , [employer] 5 10:06:33 Chronic vertigo 67667697925 105 Active 2024 Naya Goodwin APRN [address] [place] [address], [address] , [employer] 16:48:18 Problem Notes None recorded. Procedures Surgical History Date Name Laterality Status Provider Name and Address Organization Details Recorded Time 11/01/19 24 Most Recent Mammogram completed [employer] 12/12/2023 11:29:34 09/29/19 23 Date of Last Pap Smear completed [employer] 04/04/2023 14:50:35 04/05/19 23 Suture/Staple removal completed Naya Goodwin APRN [address] [place], [address], [employer] 04/05/2022 09:45:46 03/25/19 21 Tlh uterus 250 g or less completed Not Available [facility] 11/03/2021 22:56:26 06/07/19 19 cholecystectomy completed Not Available [facility] 11/03/2021 22:56:26 Hysterectomy completed [employer] 11/17/2021 11:54:15 Appendectomy completed [employer] 11/17/2021 11:54:25 Imaging Results None recorded. Procedure Notes None recorded. Medical Equipment None Reported. Allergies Allergen ID Allergen Name Allergen Category Reaction Reaction Severity Criticality Documentation Date Start Date Code Code System Note Provider Name and Address Organization Details Recorded Time 70183 Product containin g penicilli n (product) medicatio n Not available Not available Not available 11/03/2021 75461 8001 SNOMED LYNDSEY BARTLETT [facility] [employer] 08:48:34 47474 sulfameth oxazole medicatio n Not available Not available Not available 11/03/2021 31550 RxNorm Not Available [facility] 22:57:14 18663 Chantix medicatio n Not available Not available Not available 11/03/2021 18983 0 RxNorm Not Available [facility] 22:57:14 Medications Name Sig Start Date [...] Available Not Available diclofenac sodium 75 mg tablet,carlso yed release 09/27 completed Not Available Not [...] Organization Details Last Updated DateTime 157.48 cm 23.7 kg/m2 90485.5 7 g 99 [degF] 81 /min 95 % 95 % 122/75 mm[Hg] MARY ACNTOR [employer]. 15:51:18 Social History Question Answer Notes LastModified by [employer] ion Details LastModified Time Tobacco Smoking Status Former Smoker LYNDSEY dunn [employer] 12/04/2021 08:51:44 Do You Have An Advance [...] Or The Highest Degree You Have Received? [id number] Information not available 11/17/2021 When Did You Quit Smoking? 1-5yearssinc elastcigaret te Information not available 11/17/2021 Are There Any Guns Present In Your Home? No Information not available 11/17/2021 Do You Have A Medical Power Of [employer]? No Information not available 11/17/2021 What Was [...] Status Question Answer Note LastModified by Organ[employer]at [employer]_ Details LastModified Time Do you use any [...] Mental Status Question Answer Note LastModified by [employer] Details LastModified Time Do you feel stressed (tense, restless, nervous, or anxious, or unable to sleep at night)? [id number] [email or web address] Information not available 02/27/2024 Do you have difficulty concentrating, remembering or making decisions? No Information no t available 11/17/2021 Family History Relationship Description Onset Age of this Age Resolved Age Notes LastModified by Organization Details LastModified Time Father No current problems or disability [email or web address] Not available 09:44:05 Mother No current problems or disability [email or web address] Not available 09:44:05 Medical History Condition Response [...] virus, quadrivalent, PF 3 completed Allegra Stephens, [employer]GER [address] [place], [address], [email or web address] 12/03/2022 10:26:06 COVID-19, mRNA, LNP-S, PF, 100 mcg/0.5mL dose or 50 mcg/0.25mL dose 1 completed MARY dunn, [employer] 04/05/2022 09:07:25 COVID-19, mRNA, LNP-S, PF, 100 mcg/0.5mL dose or 50 mcg/0.25mL dose 1 completed MARY dunn, [employer] 04/05/2022 09:07:25 Influenza, split virus, quadrivalent, preservative 8 completed Not Available [facility] 11/03/2021 22:57:21 Influenza, split virus, quadrivalent, PF 1 completed Not Available [facility] 11/03/2021 22:57:21 Influenza, split virus, quadrivalent, PF 0 completed Not Available [facility] 11/03/2021 22:57:22 Influenza, split virus, trivalent, preservative 7 completed Not Available [facility] 04/04/2023 14:24:12 Influenza, split virus, trivalent, preservative 9 completed Not Available [facility] 04/04/2023 14:24:12 Hep A, adult 8 completed Not Available [facility] 11/03/2021 22:57:23 Hep A, adult 9 completed Not Available [facility] 11/03/2021 22:57:23 COVID-19, mRNA, LNP-S, PF, caprice-sucrose, 30 mcg/0.3 mL 4 completed Gabrielle dunn, [employer] 01/27/2024 16:27:56 Influenza, split virus, trivalent, PF 4 completed Naya Goodwin, [employer] MANAGER [address] [place], [address], [employer] 12/12/2023 12:03:17 Influenza, split virus, quadrivalent, preservative 9 completed MARY MYNEAR null, [employer] 04/05/2022 09:07:25 Influenza, split virus, quadrivalent, preservative 6 completed MARY MYNEAR null, [employer] 04/05/2022 09:07:25 Influenza, MDCK, quadrivalent, PF 2 completed MARY MYNEAR null, [employer] 04/05/2022 09:07:25 COVID-19, mRNA, LNP-S, PF, 100 mcg/0.5mL dose or 50 mcg/0.25mL dose 2 completed MARY MYNEAR null, [employer] 04/05/2022 09:07:25 COVID-19, mRNA, LNP-S, PF, 100 mcg/0.5mL dose or 50 mcg/0.25mL dose 1 completed MARY MYNEAR null, [employer] 04/05/2022 09:07:25 Influenza, split virus, trivalent, PF 5 completed MARY MYNEAR null, [employer] 12/19/2024 10:54:02 Past Encounters Encounter ID Performer Location Encounter Start Date Encounter Closed Date Diagnosis/Indication Diagnosis SNOMED-CT Code Diagnosis ICD10 Code Diagnosis IMO Codes Diagnosis Note [id number] Naya Goodwin APRN [facility] [address] [place] [phone] 11/13/2024 15:34:18 11/14/2024 08:52:35 Vertigo 430955205 R42 45286639 Irritable bowel syndrome 50020955 K58.9 42022614 Continue buspar, lorazepam, and protonix with probioitic daily. Gastroesop hageal reflux disease without esophagitis 856179271 K21.9 Continue PPI. Health Concerns Section Related Observation LastModified by Organization Detai ls LastModified Time None Recorded Concern Status LastModified by Organization Details LastModified Time None Recorded Payers Encounter Date Sequence Insurance Name Policy Number Policy Rhodes Covered Member ID Rhodes Member ID Guarantor Name 11/13/2024 1 [place]MEDICARE REPLACEMENT HMO) [id number] Luna Foreman [id number] Luna Foreman Notes Date Note Type [...] travel- Stress: Experiencing emotional stress. Naya Goodwin, APPLICATION DEFENSE MANAGER [address] [facility], [place], [address], [facility] [employer] 11/13/2024 18:17:44 OBGyn Episode No OBEpisode recorded.
--- OUTSIDE RECORDS SUMMARY | 2025-01-08 07:53 | XMS_ITS | Data Portability ---
Author Organization [facility], [facility] Address [address] [address] Care Team Providers Care Clinical Training Coordinator Name Role Phone DARREN GUTIERREZ Primary Care Provider DARREN GUTIERREZ Referring Provider [phone] Assessment Encounter Date Assessment Date Assessment LastModified by Organization Details LastModified Time 06/14/2024 06/14/2024 This is a pleasant 63-year-old [...] these medications. She is requiring refills again. [facility] #[id number], drug screen from 03/07/2024 was reviewed and [...] these medications. She is requiring refills today. [facility] #[id number], drug screen from 03/07/2024 was reviewed and [...] all appropriate. [facility] Not available 09/06/2024 17:36:23 10/31/2024 10/31/2024 This patient continues to do well as she has recovered from her lumbar fusion she had in April. She also had lumbar RFA bilateral L4-L5 on August 02. We will refill her medications today. She is on gabapentin 300 mg 3 times a day, Percocet 7.5 mg 3 times a day and a lidocaine patch. [place] and drug screen are all appropriate. She has no side effects with these medications. She is also going on a trip to [place]. Will give her prednisone 20 mg twice a day for 5 days to take on her trip in case she has an exacerbation of her pain symptoms. We will see her back in 2 months. She is to call for her second month prescription refill. [facility] Not available 10/31/2024 16:19:04 Plan of Treatment Reminders Order Date Submit Date Provider Last Modified By Organization Details Last Modified Time Details Appointments Follow Up 2024 02:30P Alina Mata MD Not available Not available Not available Lab None recorded. Referral None recorded. Procedures lumbar radiofreq uency ablation (PROC) 2024 025 [email or web address] Not available 07/17/2024 12:45:25 Surgeries None recorded. Imaging None recorded. Medication Orders gabapenti n 300 mg capsule 2024 025 [facility], [address] [place], [address], 10/31/2024 16:22:10 prednison e 20 mg tablet 2024 025 [facility], [address] [place], [address], 11/12/2024 05:01:37 lidocaine 5 % topical patch 2024 025 [facility], [address] [place], [address], 10/31/2024 16:22:04 oxycodone -acetamin ophen 7.5 mg-325 mg tablet 2024 025 [facility], [address] [place], [address], 11/09/2024 10:17:24 lidocaine 5 % topical patch 2024 025 [facility], [address], [place], [address], 09/06/2024 17:37:48 gabapenti n 300 mg capsule 2024 025 [facility], [address] [place], [address], 10/26/2024 14:40:57 oxycodone -acetamin ophen 7.5 mg-325 mg tablet 2024 025 [facility], [address] [place], [address], 09/11/2024 11:50:52 lidocaine 5 % topical patch 2024 025 [facility], [address] [place], [address], 08/02/2024 17:49:51 gabapenti n 300 mg capsule 2024 025 [facility], [address] [place], [address], 08/13/2024 14:50:33 oxycodone -acetamin ophen 7.5 mg-325 mg tablet 2024 025 [facility], [address] [place], [address], 08/13/2024 14:50:33 lidocaine 5 % topical patch 2024 025 [facility], [address] [place], [address], 07/12/2024 16:52:54 gabapenti n 300 mg capsule 2024 025 [facility], [address] [place], [address], 07/13/2024 12:26:43 oxycodone -acetamin ophen 7.5 mg-325 mg tablet 2024 025 [facility], [address] [place], [address], 07/13/2024 12:32:46 gabapenti n 300 mg capsule 2024 025 [facility], [address] [place], [address], 06/15/2024 12:04:10 lidocaine 5 % topical patch 2024 025 [facility], [address] [place], [address], 06/14/2024 22:16:21 oxycodone -acetamin ophen 7.5 mg-325 mg tablet 2024 025 [facility], [address] [place], [address], 06/15/2024 12:04:09 Patient TargetsNo targets recorded. Patient InstructionsNo instructions recorded. Reason for Referral None Reported. Results Created Date Observation Date Name Description Value Unit Range Abnormal Flag Note LastModifiedBy Organization Detail LastModifiedTime Result Notes None recorded. Problems Name Problem SNOMED Code Status Onset Date Resolution Date Notes Provider Name and Address Organization Details Recorded Time Degeneratio n of lumbar interverteb ral disc 97457451 Active 2021 Yong Mata MD [address] ,[facility] [address], [address], [place] [facility] 14:44:06 Lumbar radiculopat hy 110283872 Active 2021 Yong Mata MD [address], [address], [place] [facility] 2 14:44:07 Inflammatio n of sacroiliac joint 59723578 Active 2022 Yong Mata MD [address] [place] [address], [address], [place] [facility] 3 18:31:00 Chronic pain syndrome 177706865 Active 2023 Ilana Bagley NP [address] [facility],[address], [address], [place] [facility] 4 12:23:47 Lumbar spondylosis 745713331 Active 2023 Yong Mata MD [address] [place] [address], [address], [place] [facility] 4 14:41:57 Arthropathy of lumbar facet joint 808001852 Active 2023 Yong Mata MD [address] [place] [address], [address], [place] [facility] 4 14:41:58 Long-term drug therapy Active 2024 TIFFANY CHASE [address] [place] [address], [address], [place] [facility] 5 10:10:41 Continuous opioid dependence 226590473 Active 2024 TIFFANY CHASE [address] [place] [address], [address], [place] [facility] 5 10:10:42 History of lumbar fusion 6595960889881 6 Active 2024 Yong Mata MD [address] [place] [address], [address], [place] [facility] 5 17:47:32 Problem Notes None recorded. Procedures Surgical History Date Name Laterality Status Provider Name and Address Organization Details Recorded Time 08/03/19 25 BILAT 1 level LUMBAR RFA completed Yong Mata MD [address] [place] [address], [address], [place] [facility] 08/02/2024 17:46:07 11/10/19 24 BILAT 1 level LUMBAR RFA completed Yong Mata MD [address], [address], [place] [facility] 11/10/2023 14:55:16 09/15/19 24 Diagnostic Lumbar MBB: 1 Level Bilateral completed Yong Mata MD [address], [address], [place] [facility] 09/15/2023 16:58:24 07/14/19 24 Diagnostic Lumbar MBB: 1 Level Bilateral completed Yong Mata MD [address] [facility],[address], [address], [place] [facility] 07/14/2023 14:39:57 12/16/19 23 Diagnostic SI Joint Injection Under Fluoroscopy completed Yong Mata MD [address] [facility],[address], [address], [place] [facility] 12/15/2022 10:33:10 11/05/19 23 Diagnostic SI Joint Injection Under Fluoroscopy completed Yong Mata MD [address], [address], [place] [facility] 11/04/2022 17:01:56 10/09/19 23 Lumbar JULIAN: Interlaminar completed Yong Mata MD [address], [address], [place] [facility] 10/09/2022 01:37:24 05/14/19 23 Lumbar JULIAN: Interlaminar completed Yong Mata MD [address], [address], [place] [facility] 05/13/2022 12:33:53 03/30/19 23 Lumbar JULIAN: Interlaminar completed Yong Mata MD [address],LETICIA [address] [place] [address], [address], [place] [facility] 03/30/2022 16:32:14 02/03/20 22 Lumbar JULIAN: Interlaminar completed Yong Mata MD [address] [facility],[address], [address], [place] [facility] 02/11/2022 09:52:26 10/28/19 Lumbar JULIAN: Interlaminar completed Yong Mata MD [address] [facility],[address], [address], [place] [facility] 10/27/2021 14:42:25 Imaging Results None recorded. Procedure Notes None recorded. Medical Equipment None Reported. Allergies Allergen ID Allergen Name Allergen Category Reaction Reaction Severity Criticality Documentation Date Start Date Code Code System Note Provider Name and Address Organization Details Recorded Time 2174 Product containin g penicilli n (product) medicatio n Not available Not available Not available 01/19/2022 04012 8001 SNOMED Mackenzie stamper null, [place] - [facility] 08:42:19 2175 Substance with sulfonami de structure and antibacte rial mechanism of action (substanc e) medicatio n Not available Not available Not available 01/19/2022 56365 8003 SNOMED Mackenzie stamper [place], [place] - [...] t Available methocarbam ol 500 mg tablet TAKE 2 TABLETS BY MOUTH every 8 hours NEEDED FOR muscle pain AND spasm active Not Available Not Available No t Available bupropion HCl SR 150 mg tablet,12 [...] t Available fluconazole 150 mg tablet TAKE 1 [...] day by oral route for 5 days. 11/12 completed Not Available Not Available Not Available clonazepam 0.5 mg tablet 12/14 completed Not Available Not Available Not Available midodrine 5 mg tablet 08/18 completed Not Available Not Available Not Available meclizine 12.5 mg tablet TAKE 1 TABLET BY MOUTH 3 TIMES DAILY FOR 3 DAYS FOR vertigo active Not Available Not Available No t Available metronidazo le 500 mg tablet 01/19 [...] cm 88 /min 18 /min 23.8 kg/m2 80402.0 1 g 90 /min 98 % 98 % 7 124/86 mm[Hg] Madelyn Bautista [place] [facility] 5 14:35:18 Date Recorded Body height Body mass index (BMI) Body weight Heart rate Oxygen saturation Oxygen saturation in Arterial blood by Pulse oximetry Systolic And Diastolic Provider Name and Address Organization Details Last Updated DateTime 5 157.48 cm 23.8 kg/m2 65339.0 1 g 86 /min 98 % 98 % 126/86 mm[Hg] GIL GUARDADO [place] [facility] 5 14:49:00 Date Recorded Body height Body mass index (BMI) Body weight Heart rate Oxygen saturation Oxygen saturation in Arterial blood by Pulse oximetry Pain severity - 0-10 verbal numeric rating [Score] - Reported Systolic And Diastolic Provider Name and Address Organization Details Last Updated DateTime 5 157.48 cm 23.8 kg/m2 13323.0 1 g 86 /min 98 % 98 % 7 126/86 mm[Hg] GIL GUARDADO [place] [facility] 5 13:31:18 Date Recorded Body height Body mass index (BMI) Body weight Heart rate Oxygen saturation Oxygen saturation in Arterial blood by Pulse oximetry Pain severity - 0-10 verbal numeric rating [Score] - Reported Systolic And Diastolic Provider Name and Address Organization Details Last Updated DateTime 5 157.48 cm 23.8 kg/m2 14842.0 1 g 86 /min 98 % 98 % 9 126/86 mm[Hg] GIL GUARDADO [place] [facility] 5 14:22:22 Date Recorded Body height Heart rate Respiratory rate Body mass index (BMI) Body weight Heart rate Oxygen saturation Oxygen saturation in Arterial blood by Pulse oximetry Pain severity - 0-10 verbal numeric rating [Score] - Reported Systolic And Diastolic Provider Name and Address Organization Details Last Updated DateTime 5 157.48 cm 86 /min 18 /min 23.8 kg/m2 03952.0 1 g 90 /min 98 % 98 % 9 126/86 mm[Hg] Michelle [place] [facility] 5 14:14:31 Social History Question Answer Notes LastModified by [email or web address] Details LastModified Time Tobacco Smoking Status Never Smoker Mackenzie [place]all [place], [place] - [facility] 01/19/2022 08:42:54 In The 14 Days Before Symptom Onset, Have You Had Close Contact With A Laboratory-confirm ed COVID-19 While That Case Was Ill? No [email or web address] Information n ot available 08/18/2022 In The 14 Days Before Symptom Onset, Have You Had Close Contact With A Person Who Is Under Investigation For COVID-19 While That Person Was Ill? No [email or web address] Information not available 08/18/2022 Have You Been To An Area Known To Be High Risk For COVID-19? No [email or web address] Information not available 08/18/2022 Sex: Unknown Functional Status Question Answer Note LastModified by [email or web address] Details LastModified Time Do you use any illicit or recreational drugs? No Information not available 01/19/2022 Do you or have you ever used any other forms of tobacco or nicotine? No Information not available 01/19/2022 What is your level of alcohol consumption? None [email or web address] Information not available 08/18/2022 Are you currently employed? No [email or web address] Information not available 12/20/2022 Mental Status None recorded. Family History Nothing Reported. Medical History Condition Response Coronary Artery Disease N Gout N Hernia N Head Trauma/Injury N Thyroid Problems N Depression N COPD N Anemia N Ulcers N Heart Attack (DE) N Anxiety Disorder N Diabetes N Bleeding Disorder N Arthritis N Tuberculosis [...] ICD10 Code Diagnosis IMO Codes Diagnosis Note [id number] Yong Mata MD [facility] [address] [facility],[place] [address] 6 10/27/2021 13:06:17 10/27/2021 14:14:54 Degeneration of lumbar intervertebral disc 70921447 M51.36 Lumbar radiculopathy 128 617276 M54.16 [id number] Yong Mata MD [facility] [address] [facility],[place] [address] 6 01/19/2022 08:33:14 01/19/2022 09:26:52 Degeneration of lumbar intervertebral disc 66829849 M51.36 Lumbar radiculopathy 128 539431 M54.16 [id number] Yong Mata MD [facility] [address] [facility],[address] 6 02/02/2022 12:48:00 02/02/2022 13:28:11 Degeneration of lumbar intervertebral disc 86578626 M51.36 Lumbar radiculopathy 128 021263 M54.16 [id number] Yong Mata MD [facility] [address] [facility],[address] 6 03/30/2022 14:26:17 03/30/2022 16:03:59 Degeneration of lumbar intervertebral disc 77304666 M51.36 Lumbar radiculopathy 128 735928 M54.16 [id number] Peter Barraza [facility] [address] [facility],[address] 6 04/27/2022 11:03:58 04/27/2022 11:27:12 Degeneration of lumbar intervertebral disc 89586564 M51.36 Lumbar radiculopathy 128 242686 M54.16 [id number] Yong Mata MD [facility] [address] [facility] [address] 6 05/13/2022 10:32:29 05/13/2022 11:14:06 Degeneration of lumbar intervertebral disc 62575674 M51.36 Lumbar radiculopathy 128 270951 M54.16 [id number] Peter Barraza [facility] [address] [facility] [address] [place] [address] 06/03/2022 10:04:40 06/03/2022 10:21:21 Lumbar radiculopathy 418607512 M54.16 Degenerati on of lumbar intervertebral disc 69965579 M51.36 [id number] Yong Mata MD [address] [place] [address] 3 10/08/2022 13:46:10 10/08/2022 15:08:50 Lumbar radiculopathy 275709902 M54.16 Degenerati on of lumbar intervertebral disc 67681253 M51.36 [id number] Peter Barraza [address] [place] [address] 3 09/06/2022 13:43:35 09/06/2022 14:19:34 Lumbar radiculopathy 067811808 M54.16 Degenerati on of lumbar intervertebral disc 92019462 M51.36 [id number] Yong Mata MD [address] [place] [address] 3 10/21/2022 15:02:03 10/21/2022 16:07:23 Lumbar radiculopathy 030747912 M54.16 Degenerati on of lumbar intervertebral disc 81540090 M51.36 Inflammati on of sacroiliac joint 45795825 M46.1 [id number] Yong Mata MD [address] [place] [address] 3 11/04/2022 14:13:12 11/04/2022 14:39:38 Degeneration of lumbar intervertebral disc 56612683 M51.36 Inflammati on of sacroiliac joint 35060230 M46.1 Lumbar radiculopathy 128 843787 M54.16 [id number] Yong Mata MD [address] [place] [address] 3 11/25/2022 14:27:36 11/25/2022 14:58:12 Degeneration of lumbar intervertebral disc 63222730 M51.36 Inflammati on of sacroiliac joint 11275538 M46.1 Lumbar radiculopathy 128 027330 M54.16 [id number] Yong Mata MD [address] [place] [address] 3 12/15/2022 09:31:04 12/15/2022 10:30:53 Low back pain 755542010 M54.50 Degenerati on of lumbar intervertebral disc 41597275 M51.36 Inflammati on of sacroiliac joint 57256934 M46.1 Lumbar radiculopathy 128 896504 M54.16 [id number] Ilana Bagley NP [address] [place] [address] 3 12/24/2022 13:44:17 12/24/2022 14:40:02 Lumbar radiculopathy 336883058 M54.16 Degenerati on of lumbar intervertebral disc 94738231 M51.36 Inflammati on of sacroiliac joint 20012797 M46.1 Pain in coccyx 80973741 M53.3 [id number] Yong Mata MD [address] [place] [address] 3 01/10/2023 13:28:15 01/10/2023 14:10:05 Degeneration of lumbar intervertebral disc 90723374 M51.36 Inflammati on of sacroiliac joint 80505060 M46.1 Lumbar radiculopathy 128 454674 M54.16 [id number] Yong Mata MD [address] [place] [address] 3 02/03/2023 13:37:47 02/04/2023 11:58:24 Degeneration of lumbar intervertebral disc 36242097 M51.36 Inflammati on of sacroiliac joint 05720685 M46.1 Lumbar radiculopathy 128 819893 M54.16 [id number] Ilana Bagley NP [address] [place] [address] 3 03/29/2023 11:05:58 03/29/2023 12:12:07 Lumbar radiculopathy 983839248 M54.16 Degenerati on of lumbar intervertebral disc 54133949 M51.36 Inflammati on of sacroiliac joint 02495565 M46.1 Chronic pain syndrome 37 5306764 G89.4 [id number] ROBERT BE NP [address] [place] [address] 3 04/21/2023 12:51:29 04/21/2023 14:33:35 Lumbar radiculopathy 130133353 M54.16 Degenerati on of lumbar intervertebral disc 19356213 M51.36 Chronic pain syndrome 37 0296595 G89.4 Inflammati on of sacroiliac joint 49247143 M46.1 Chronic pain 50130323 G8 9.29 [id number] Yong Mata MD [address] [place] [address] 3 05/19/2023 12:54:10 05/19/2023 14:08:28 Lumbar radiculopathy 220241509 M54.16 Chronic pain syndrome 37 9367001 G89.4 Degenerati on of lumbar intervertebral disc 53430366 M51.36 Inflammati on of sacroiliac joint 96298032 M46.1 [id number] Yong Mata MD [address] [place] [address] 06/23/2023 14:26:02 06/23/2023 15:23:27 Degeneration of lumbar intervertebral disc 76081286 M51.36 Chronic pain syndrome 37 4253483 G89.4 Inflammati on of sacroiliac joint 71574098 M46.1 Lumbar radiculopathy 128 369180 M54.16 Lumbar spondylosis 47815 0009 M47.896 Arthropath y of lumbar facet joint 954495630 M47.816 [id number] Yong Mata MD [address] [place] [address] 07/14/2023 13:35:47 07/14/2023 14:30:35 Lumbar radiculopathy 614349359 M54.16 Chronic pain syndrome 37 8073469 G89.4 Degenerati on of lumbar intervertebral disc 53938100 M51.36 Inflammati on of sacroiliac joint 65977132 M46.1 Lumbar spondylosis 00137 0009 M47.896 Arthropath y of lumbar facet joint 350552810 M47.816 [id number] Yong Mata MD [address] [place] [address] 3 08/18/2023 14:08:31 08/18/2023 14:58:34 Lumbar radiculopathy 522158629 M54.16 Arthropath y of lumbar facet joint 244828169 M47.816 Chronic pain syndrome 37 3135451 G89.4 Degenerati on of lumbar intervertebral disc 36149342 M51.36 Inflammati on of sacroiliac joint 26583877 M46.1 Lumbar spondylosis 65564 0009 M47.896 [id number] Yong Mata MD [address] [place] [address] 3 09/15/2023 14:37:31 09/15/2023 15:29:26 Lumbar radiculopathy 731664173 M54.16 Arthropath y of lumbar facet joint 495591479 M47.816 Chronic pain syndrome 37 5227435 G89.4 Degenerati on of lumbar intervertebral disc 30596883 M51.36 Inflammati on of sacroiliac joint 82346372 M46.1 Lumbar spondylosis 15326 0009 M47.896 [id number] ZI PARR NP [address] [place] [address] 3 10/13/2023 14:28:07 10/13/2023 15:04:25 Arthropathy of lumbar facet joint 212234720 M47.816 Degenerati on of lumbar intervertebral disc 48822897 M51.36 [id number] Yong Mata MD [address] [place] [address] 11/10/2023 13:04:07 11/10/2023 15:05:19 Lumbar radiculopathy 096728650 M54.16 Arthropath y of lumbar facet joint 825598257 M47.816 Degenerati on of lumbar intervertebral disc 44381485 M51.36 Inflammati on of sacroiliac joint 42684868 M46.1 Lumbar spondylosis 91912 0009 M47.896 Chronic pain syndrome 37 4465843 G89.4 [id number] Yong Mata MD [address] [place] [address] 12/08/2023 13:35:01 12/08/2023 14:43:07 Lumbar radiculopathy 364759213 M54.16 Arthropath y of lumbar facet joint 216419374 M47.816 Chronic pain syndrome 37 9179404 G89.4 Degenerati on of lumbar intervertebral disc 43010795 M51.369 Inflammati on of sacroiliac joint 73122767 M46.1 Lumbar spondylosis 80318 0009 M47.896 Long-term current use of opiate analgesic drug 6473755332 73412 Z79.891 [id number] Yong Mata MD [address] [place] [address] 01/04/2024 12:50:53 01/04/2024 13:54:18 Lumbar radiculopathy 481703706 M54.16 Arthropath y of lumbar facet joint 087539987 M47.816 Chronic pain syndrome 37 2440597 G89.4 Degenerati on of lumbar intervertebral disc 16443165 M51.369 Inflammati on of sacroiliac joint 91920036 M46.1 Lumbar spondylosis 21359 0009 M47.896 [id number] Yong Mata MD [address] [place] [address] 02/02/2024 12:41:08 02/02/2024 15:00:31 Lumbar radiculopathy 830298559 M54.16 Arthropath y of lumbar facet joint 218772102 M47.816 Chronic pain syndrome 37 3546016 G89.4 Degenerati on of lumbar intervertebral disc 77666508 M51.369 Inflammati on of sacroiliac joint 91550975 M46.1 Lumbar spondylosis 25193 0009 M47.896 [id number] Yong Mata MD [address] [place] [address] 03/07/2024 14:30:01 03/07/2024 15:03:31 Lumbar radiculopathy 888253291 M54.16 Lumbar spondylosis 51338 0009 M47.896 Degenerati on of lumbar intervertebral disc 03849972 M51.369 Arthropath y of lumbar facet joint 801370421 M47.816 Long-term drug therapy 592926516 Z79.891 Continuous opioid dependence 225232446 F11.20 [id number] TIFFANY CHASE [address] [place] [address] 04/05/2024 13:56:21 04/05/2024 14:40:47 Lumbar radiculopathy 835512852 M54.16 Arthropath y of lumbar facet joint 233572103 M47.816 Chronic pain syndrome 37 1355802 G89.4 Degenerati on of lumbar intervertebral disc 61316521 M51.369 Inflammati on of sacroiliac joint 03232150 M46.1 Continuous opioid dependence 164520378 F11.20 Long-term drug therapy 235622069 Z79.891 Lumbar spondylosis 82429 0009 M47.896 [id number] TIFFANY CHASE [address] [place] [address] 05/08/2024 13:35:21 05/08/2024 14:00:55 Lumbar radiculopathy 176647665 M54.16 Continuous opioid dependence 309669301 F11.20 Lumbar spondylosis 80582 0009 M47.896 Degenerati on of lumbar intervertebral disc 08308323 M51.369 [id number] Yong Mata MD [address] [place] [address] 06/14/2024 14:26:45 06/14/2024 15:19:36 Lumbar radiculopathy 296757492 M54.16 Continuous opioid dependence 644271884 F11.20 Lumbar spondylosis 29707 0009 M47.896 Degenerati on of lumbar intervertebral disc 08085485 M51.369 Long-term drug therapy 371575420 Z79.891 Chronic pain syndrome 37 9446420 G89.4 Chronic pain 59977999 G8 9.29 Arthropath y of lumbar facet joint 807820396 M47.816 Inflammati on of sacroiliac joint 74444386 M46.1 Myofascial pain 22714428 9 M79.18 097736 65986 TIFFANY CHASE [address] [place] [address] [place] [address] 3 07/12/2024 14:30:09 07/12/2024 15:04:02 Lumbar radiculopathy 411129642 M54.16 Continuous opioid dependence 049425536 F11.20 Lumbar spondylosis 76531 0009 M47.896 Degenerati on of lumbar intervertebral disc 54028128 M51.369 Myofascial pain 56343850 9 M79.18 Polyneuropathy 25230149 G62.9 4907800 [id number] Yong Mata MD [address] KELLY [address] [place] [address] 3 08/02/2024 13:23:41 08/02/2024 14:13:58 Lumbar radiculopathy 285280972 M54.16 Degenerati on of lumbar intervertebral disc 93864247 M51.369 Polyneuropathy 07777269 G62.9 02940 History of lumbar fusion 6688483389 9106 Z98.1 705638 [id number] Yong Maat MD [address] [place] [address] 3 09/06/2024 14:13:19 09/06/2024 15:14:05 Lumbar radiculopathy 073901942 M54.16 Continuous opioid dependence 075523953 F11.20 Lumbar spondylosis 14441 0009 M47.896 Degenerati on of lumbar intervertebral disc 43645953 M51.369 Polyneuropathy 01635225 G62.9 [id number] Yong Mata MD [facility] [address] [address] 10/31/2024 14:10:59 10/31/2024 14:40:28 Lumbar radiculopathy 165038357 M54.16 67129 Continuous opioid dependence 346708938 F11.20 Lumbar spondylosis 78134 0009 M47.896 Degenerati on of lumbar intervertebral disc 81377067 M51.369 Arthropath y of lumbar facet joint 587096345 M47.816 History of lumbar fusion 1786308881 9106 Z98.1 244280 Polyneuropathy 04869085 G62.9 Health Concerns Section Related Observation LastModified by Organization Detai ls LastModified Time None Recorded Concern Status LastModified by Organization Details LastModified Time None Recorded Advance Directives Directive None Recorded Payers Insurance Date Sequence Insurance Name Policy Number Policy Rhodes Covered Member ID Rhodes Member ID Guarantor Name 10/31/2024 2 MEDICAID-[facility] [email or web address] - FFS/TRADITIONA L Luna Tiffanie Sweet [id number] Luna Sweet 10/31/2024 3 [place] [id number] W [facility] [id number] Luna Sweet 01/06/2025 1 [place]MEDICARE REPLACEMENT REGIONAL PPO) [id number] Luna W Sweet [id number] Luna Sweet 10/31/2024 2 MEDICAID-[facility] CHOICES - FFS/TRADITIONA L Luna W Sweet [id number] Luna Foreman Notes Date Note Type Note Provider Name and Address Organization Details Recorded Time 06/14/2024 text/html Follow-up (meds & injections)Reported by PatientHPIFor improvement, patient reportspain is the same as compared to last visit.. For pain scores, patient reportsaverage pain- 7/10andcurrent pain- 8/10. 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 For adverse reactions, patient reportsno nausea.,no vomiting.,no constipation.,no itching.,no sedation.,no respiratory depression., andno sexual dysfunction.. For physical therapy, patient reportscompleted course in the past- ___. For recent injections, patient reportspain relief from injections- 80% lasting for __ __andepidural steroid injection: 80%}}(05/13/2022 (thera) ilesi l4/5 85% pain relief).ROS as noted in the [address], [address], [place] - [facility] 06/15/2024 08:56:41 07/12/2024 text/html Follow-up (meds & injections)Reported by PatientHPIFor improvement, patient reportspain is the same as compared to last visit.. For pain scores, patient reportsaverage pain- 7/10andcurrent pain- 8/10. 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 For adverse reactions, patient reportsno nausea.,no vomiting.,no constipation.,no itching.,no sedation.,no respiratory depression., andno sexual dysfunction.. For physical therapy, patient reportscompleted course in the past- ___. For recent injections, patient reportspain relief from injections- 80% lasting for __ __andepidural steroid injection: 80%}}(05/13/2022 (thera) ilesi l4/5 85% pain relief).ROS as noted in the [place] [place] [address], [address], [place] - [facility] 07/13/2024 10:33:03 08/02/2024 text/html Follow-up (meds & injections)Reported by PatientHPIFor improvement, patient reportspain is the same as compared to last visit.. For pain scores, patient reportsaverage pain- 7/10andcurrent pain- 8/10. 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 For adverse reactions, patient reportsno nausea.,no vomiting.,no constipation.,no itching.,no sedation.,no respiratory depression., andno sexual dysfunction.. For physical therapy, patient reportscompleted course in the past- ___. For recent injections, patient reportspain relief from injections- 80% lasting for __ __andepidural steroid injection: 80%}}(05/13/2022 (thera) ilesi l4/5 85% pain relief).ROS as noted in the HPI Yong Mata MD [address], [address], [place] - [facility] 08/02/2024 17:48:41 09/06/2024 text/html Follow-up (meds & injections)Reported by PatientHPIFor improvement, patient reportspain is the same as compared to last visit.. For pain scores, patient reportsaverage pain- 9/10andcurrent pain- 8/10. 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 For adverse reactions, patient reportsno nausea.,no vomiting.,no constipation.,no itching.,no sedation.,no respiratory depression., andno sexual dysfunction.. For physical therapy, patient reportscompleted course in the past- ___. For recent injections, patient reportspain relief from injections- 80% lasting for __ __andepidural steroid injection: 80%}}(05/13/2022 (thera) ilesi l4/5 85% pain relief).ROS as noted in the HPI Yong Mata MD [address], [address], [place] - [facility] 09/06/2024 17:37:15 10/31/2024 text/html Follow-up (meds & injections)Reported by PatientHPIFor improvement, patient reportspain is the same as compared to last visit.. For pain scores, patient reportsaverage pain- 9/10andcurrent pain- 8/10. 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 For adverse reactions, patient reportsno nausea.,no vomiting.,no constipation.,no itching.,no sedation.,no respiratory depression., andno sexual dysfunction.. For physical therapy, patient reportscompleted course in the past- ___. For recent injections, patient reportspain relief from injections- 80% lasting for __ __andepidural steroid injection: 80%}}(05/13/2022 (thera) ilesi l4/5 85% pain relief).ROS as noted in the HPI Yong Mata MD [address], [address], [place] - [facility] 10/31/2024 16:20:45 OBGyn Episode No OBEpisode recorded.
--- OUTSIDE RECORDS SUMMARY | 2025-01-08 07:53 | XMS_ITS | Continuity of Care Document ---
Author Organization [place] - Ichiba., DavidEstimize [facility] Address [address] [place] [phone] Assessment Encounter Date Assessment Date Assessment LastModified [...] promethazin e 12.5 mg tablet [address] [facility], [address] [place] [address], [address], 16:57:46 meclizine 25 mg tablet 2024 025 [facility], [address] [place] [address], [address], 16:35:10 Medrol (Jackson) 4 mg tablets in a dose pack [address] [facility], [address] [place] [address], [place], [address], 17:31:30 Patient TargetsNo targets recorded. Patient InstructionsNo instructions recorded. Reason for Referral None Reported. Results Created Date Observation Date Name Description Value Unit Range Abnormal Flag Note LastModifiedBy Organization Detail LastModifiedTime 12/15/1912/14/2024 CT, head + brain , w/o contr ast No observ ation record ed. [place] [address], [place], [address], 12/17/2024 09:08:23 12/15/1912/14/2024 CT, angio gram, neck, w/ contr ast No observ ation record ed. [address], [place], [address], 12/17/2024 09:08:06 12/15/1912/14/2024 CT, angio gram, head, w/wo contr ast No observ ation record ed. [address], [place], [address], 12/17/2024 09:07:32 12/15/1912/14/2024 milind chan am, christina ne ECG, 12 leads min No observ ation record ed. [address], [place], [address], 12/17/2024 09:07:13 Result Notes None recorded. Problems Name Problem SNOMED Code Status Onset Date Resolution Date Notes Provider Name and Address Organization Details Recorded Time Major depressi on, single episode [id number] Completed 201605/19/2017 Problem Code: F32.9; Problem Code Type: ICD-10; Not Available [facility] 22:26:38 Moderate recurren t major depressi on 45266365 Completed 201611/26/2018 Problem Code: F33.1; Problem Code Type: ICD-10; Not Available [facility] 2 22:26:38 Lumbosac ral radiculo aiden 9623528 Completed 201611/17/2017 Problem Code: M54.16; Problem Code Type: ICD-10; Not Available [facility] 2 22:26:44 Low back pain 261325435 Completed 201611/17/2017 Problem Code: 724.2; Problem Code Type: ICD-9; Naya Goodwin, RETAIL INTERIOR DESIGNER [address] [place] [address], [address] , [employer] 4 08:40:49 Chronic obstruct mitesh pulmonar y disease 84365768 Completed 201607/11/2020 Problem Code: 496; Problem Code Type: ICD-9; Not Available [facility] 2 22:27:12 Influenz a 5008966 Completed 201704/08/2017 Problem Code: J10.1; Problem Code Type: ICD-10; MARY CANTOR [employer] 2 11:49:03 Influenz a with non-resp iratory manifest ation 20828987 Completed 201704/08/2017 Problem Code: 487.8; Problem Code Type: ICD-9; Not Available [facility] 2 22:27:11 Generali zed anxiety disorder 60317042 Completed 201708/17/2017 Problem Code: F41.1; Problem Code Type: ICD-10; Not Available [facility] 2 22:26:38 Gastroes ophageal reflux disease without esophagi tis 469126532 Completed 201711/17/2021 MARY dunn, [employer] 2 11:49:03 Gastro-e sophagea l reflux disease with esophagi tis 695797338 Active 2017 Problem Code: K21.0; Problem Code Type: ICD-10; Not Available [facility] 22:27:00 Gastroes ophageal reflux disease 770239508 Completed 201707/11/2020 Problem Code: 530.81; Problem Code Type: ICD-9; Not Available [facility] 22:27:07 Moderate recurren t major depressi on 46882515 Active 2017 Problem Code: F33.1; Problem Code Type: ICD-10; Not Available [facility] 22:26:38 Chronic post-tra umatic stress disorder 407882496 Completed 201708/19/2017 Problem Code: F43.12; Problem Code Type: ICD-10; Not Available [facility] 22:26:38 Post-tra umatic stress disorder 46908688 Active 2017 Problem Code: F43.10; Problem Code Type: ICD-10; Not Available [facility] 22:26:39 Sleep behavior finding 369346302 Completed 201711/17/2017 Not Available [facility] 22:26:39 Chronic pain syndrome 239072817 Active 2017 Problem Code: G89.4; Problem Code Type: ICD-10; Not Available [facility] 22:26:39 Sarah buchanan screenyoanna g Completed 201711/17/2017 MARY dunn [employer] 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 35082859 Completed 201707/11/2020 Problem Code: 053.12; Problem Code Type: ICD-9; Not Available [facility] 22:27:02 Organic sleep disorder 965680440 Completed 201711/17/2017 Problem Code: 327.8; Problem Code Type: ICD-9; Not Available [facility] 22:27:06 Asthenia 58978198 Completed 201711/17/2017 Problem Code: R53.1; Problem Code Type: ICD-10; Not Available [facility] 09/05/202 2 22:27:08 Malaise and fatigue 263235299 Completed 201711/17/2017 Problem Code: 780.79; Problem Code Type: ICD-9; Not Available [facility] 22:27:09 Hyperlip idemia lucyin g Completed 201711/17/2017 Problem Code: V77.91; Problem Code Type: ICD-9; Not Available [facility] 22:27:09 Herpesvi uzma infectio n 79856441 Completed 201711/26/2018 Problem Code: A60.09; Problem Code Type: ICD-10; Not Available [facility] 22:26:37 Genital herpes simplex 15629650 Completed 201707/11/2020 Problem Code: 054.19; Problem Code Type: ICD-9; Not Available [facility] 22:27:01 Acute sinusiti s 43096364 Completed 201712/01/2017 Problem Code: J01.90; Problem Code Type: ICD-10; MARY dunn, [employer] 11:49:03 Otitis externa 0598101 Completed 201702/14/2018 Problem Code: H60.339; Problem Code Type: ICD-10; Not Available [facility] 22:26:39 Acute sinusiti s 61039258 Completed 201701/02/2018 Problem Code: J01.90; Problem Code Type: ICD-10; MARY dunn, [employer] 2 11:49:03 Nausea and vomiting 72115358 Completed 201702/14/2018 Problem Code: R11.2; Problem Code Type: ICD-10; Not Available [facility] 22:26:48 Acute swimmer' s ear Completed 201702/14/2018 Problem Code: 380.12; Problem Code Type: ICD-9; Not Available [facility] 22:27:04 Nausea 943603102 Completed 201811/26/2018 Problem Code: R11.0; Problem Code Type: ICD-10; Not Available [facility] 2 22:26:47 Generali zed abdomina l pain 331842655 Completed 201811/26/2018 Problem Code: R10.84; Problem Code Type: ICD-10; Not Available [facility] 22:26:46 Nausea and vomiting 91861256 Completed 201811/26/2018 Problem Code: R11.2; Problem Code Type: ICD-10; Not Available [facility] 2 22:26:47 Abdomina l bloating 602405298 Completed 201811/17/2021 Problem Code: R14.0; Problem Code Type: ICD-10; MARY dunn, [employer] 11:49:02 Generali zed anxiety disorder 37769204 Active 2018 Problem Code: F41.1; Problem Code Type: ICD-10; Not Available [facility] 22:26:38 Chronic post-tra umatic stress disorder 318519325 Completed 201811/26/2018 Problem Code: F43.12; Problem Code Type: ICD-10; Not Available [facility] 22:26:38 Acute sinusiti s 41452415 Completed 201811/26/2018 Problem Code: J01.90; Problem Code Type: ICD-10; MARY dunn, [employer] 2 11:49:03 Onycholy sis 81122500 Completed 201811/26/2018 Problem Code: L60.1; Problem Code Type: ICD-10; Not Available [facility] 22:26:44 Renal angle tenderne ss 700974769 Completed 201811/17/2021 Problem Code: R10.821; Problem Code Type: ICD-10; MARY dunn, [employer] 2 11:49:02 Dehydrat ion 59864323 Completed 201811/26/2018 Problem Code: E86.0; Problem Code Type: ICD-10; Not Available [facility] 2 22:26:38 Low blood pressure 02362924 Completed 201811/26/2018 Problem Code: I95.9; Problem Code Type: ICD-10; Naya Goodwin APRN [address] [place], [address] , [employer] 5 15:57:42 Screenin g mammogra phy Completed 201811/26/2018 Problem Code: Z12.31; Problem Code Type: ICD-10; MARY MYNEAR null, [employer] 2 11:49:03 Influenz a vaccine needed 59369295465 06 Completed 201811/17/2021 Problem Code: Z23; Problem Code Type: ICD-10; MARY MYNEAR null, [employer] 2 11:49:02 Snoring 08754433 Completed 201809/24/2019 Problem Code: R06.83; Problem Code Type: ICD-10; Not Available [facility] 2 22:26:46 Hemorrho ids 36265406 Completed 201809/24/2019 Problem Code: K64.9; Problem Code Type: ICD-10; Not Available [facility] 2 22:26:43 Acute sinusiti s 27182918 Completed 201809/04/2019 Problem Code: J01.90; Problem Code Type: ICD-10; MARY MYNEAR null, [employer] 2 11:49:03 General examinat ion of patient Completed 201907/11/2020 MARY MYNEAR null, [employer] 2 11:49:03 Body mass index 20-24 - normal 349145384 Active 2019 Not Available [facility] 2 22:26:59 Low blood pressure 86581610 Completed 201911/06/2019 Problem Code: I95.9; Problem Code Type: ICD-10; Naya Goodwin APRN [address] [place], [address] , [employer] 5 15:57:42 Function al diarrhea 61210079 Completed 201911/06/2019 Problem Code: K59.1; Problem Code Type: ICD-10; Not Available [facility] 2 22:26:42 Influenz a 8424990 Completed 201911/17/2021 Problem Code: J10.1; Problem Code Type: ICD-10; MARY RANDLENEAR null, [employer] 2 11:49:03 Pyrexia of unknown origin 0588998 Completed 201909/04/2019 Problem Code: R50.9; Problem Code Type: ICD-10; MARY RAZIANEAR null, [employer] 2 11:49:03 Nausea 055446839 Completed 201909/04/2019 Problem Code: R11.0; Problem Code Type: ICD-10; Not Available [facility] 2 22:26:47 Acute sinusiti s 90173458 Completed 201909/24/2019 Problem Code: J01.90; Problem Code Type: ICD-10; MARY RANDLENEAR null, [employer] 2 11:49:03 Vitamin D deficien cy 77238201 Active 2019 Problem Code: E55.9; Problem Code Type: ICD-10; Not Available [facility] 2 22:26:38 Dysplasi a of vulva 053520213 Completed 201908/31/2021 Problem Code: N90.3; Problem Code Type: ICD-10; Not Available [facility] 2 22:26:45 Screenin g mammogra phy Completed 201911/06/2019 Problem Code: Z12.31; Problem Code Type: ICD-10; MARY RAZIANEAR null, [employer] 2 11:49:03 Current drug user 813679264 Completed 201911/06/2019 Problem Code: Z79.899; Problem Code Type: ICD-10; Naya Goodwin APRN [address] [place], [address] , [employer] 4 08:41:04 Acute pansinus itis 6852899 Completed 201911/17/2021 Problem Code: J01.41; Problem Code Type: ICD-10; MARY RAZIAELIZABETH null, [employer] 2 11:49:03 Influenz a vaccine needed 89026328659 06 Completed 201912/25/2019 Problem Code: Z23; Problem Code Type: ICD-10; MARY RAZIAELIZABETH null, [employer] 2 11:49:02 Low blood pressure 62077617 Completed 201908/31/2021 Problem Code: I95.9; Problem Code Type: ICD-10; Naya Goodwin APRN [address] [place], [address] , [employer] 5 15:57:42 Acute pansinus itis 3538146 Completed 201903/17/2020 Problem Code: J01.41; Problem Code Type: ICD-10; MARY RAZIAELIZABETH null, [employer] 2 11:49:03 Tobacco dependen ce caused by cigarett es 91116705934 569179 Active 2020 Problem Code: F17.210; Problem Code Type: ICD-10; Not Available [facility] 2 22:26:38 General examinat ion of patient Completed 202007/11/2020 MARY RAZIAJAYESHR null, [employer] 2 11:49:03 Body mass index 20-24 - normal 171840623 Completed 202007/11/2020 Not Available [facility] 2 22:26:59 Dysuria 70039683 Completed 202011/17/2021 Problem Code: R30.0; Problem Code Type: ICD-10; MARY RANDLENEAR null, [employer] 11:49:03 Acute sinusiti s 88000658 Completed 202011/17/2021 Problem Code: J01.90; Problem Code Type: ICD-10; MARY RANDLENEAR null, [employer] 11:49:03 Lumbosac ral radiculo aiden 8017622 Active 2020 Problem Code: M54.16; Problem Code Type: ICD-10; Not Available [facility] 22:27:02 Irritabl e bowel syndrome 18597515 Active 2020 Problem Code: K58.2; Problem Code Type: ICD-10; Naya Goodwin, RETAIL INTERIOR DESIGNER [address] [place] [address], [address] [facility] [employer] 5 16:08:54 Screenin g mammogra phy Completed 202011/17/2021 Problem Code: Z12.31; Problem Code Type: ICD-10; MARY MYNEAR null, [employer] 11:49:03 Ingrowin g nail 752358772 Completed 202008/31/2021 Problem Code: L60.0; Problem Code Type: ICD-10; Not Available [facility] 22:26:43 Disorder of upper respirat ory system 880454605 Completed 202011/17/2021 Problem Code: J06.9; Problem Code Type: ICD-10; MARY RAZIANEAR null, [employer] 2 11:49:03 Otogenic otalgia 67576439 Completed 202012/04/2021 LYNDSEY BARTLETT null, [employer] 08:50:49 Allergic rhinitis 06906184 Completed 202011/17/2021 Problem Code: J30.9; Problem Code Type: ICD-10; MARY CANTOR null, [employer]. 11:49:03 Influenz a vaccine needed 51834707125 06 Completed 202008/31/2021 Problem Code: Z23; Problem Code Type: ICD-10; MARY CANTOR null, [employer]. 11:49:02 Benign paroxysm al position al vertigo or nystagmu s 014871119 Completed 202111/17/2021 MARY DIAZR null, [employer] 11:49:03 General examinat ion of patient Completed 202111/17/2021 MARY CANTOR null, [employer] 11:49:03 Acute sinusiti s 98668969 Completed 202108/31/2021 Problem Code: J01.90; Problem Code Type: ICD-10; MARY DIAZR null, [employer]. 11:49:03 Dizzines s and giddines s 519048552 Completed 202108/31/2021 Problem Code: R42; Problem Code Type: ICD-10; MARY CANTOR null, [employer]. 11:49:03 Headache 74322759 Completed 202111/17/2021 Problem Code: R51; Problem Code Type: ICD-10; MARY DIAZR null, [employer]. 11:49:03 Chronic fatigue syndrome 91428735 Completed 202108/31/2021 Problem Code: R53.82; Problem Code Type: ICD-10; Not Available [facility] 22:26:51 Exposure to SARS-CoV -2 Completed 202111/17/2021 Problem Code: Z20.822; Problem Code Type: ICD-10; MARY DIAZR null, [employer] 2 11:49:03 Dizzines s and giddines s 726679346 Completed 202111/17/2021 Problem Code: R42; Problem Code Type: ICD-10; MARY RANDLENEAR null, [employer] 2 11:49:03 Acute non-supp urative serous otitis media 836735835 Completed 202111/17/2021 Problem Code: H65.01; Problem Code Type: ICD-10; MARY RAZIANEAR null, [employer] 2 11:49:03 Influenz a 5874381 Completed 202108/31/2021 Problem Code: J10.1; Problem Code Type: ICD-10; MARY RANDLENEAR null, [employer] 2 11:49:03 Choleste rol screenin g Completed 202108/31/2021 MARY DIAZR null, [employer] 2 11:49:36 Low blood pressure 56766970 Completed 202108/31/2021 Problem Code: I95.9; Problem Code Type: ICD-10; Naya Goodwin APRN [address] [place], [address] , [employer] 5 15:57:42 Pyrexia of unknown origin 3598043 Completed 202111/17/2021 Problem Code: R50.9; Problem Code Type: ICD-10; MARY RANDLENEAR null, [employer] 2 11:49:03 Tick-bor ne relapsin g fever 42575450 Completed 202111/17/2021 Problem Code: A68.1; Problem Code Type: ICD-10; MARY RANDLENEAR null, [employer] 2 11:49:02 Candidia sis of vagina 18893420 Active 2024 Naya Goodwin APRN [address] [place] [address], [address] [address] , [employer] 5 10:26:24 Cobalami n deficien cy 286188831 Active 2024 Naya TorresNATALIE morris [address] [place] [address], [address] [place] [address] , [employer] 5 10:28:44 Vertigo 689618135 Active 2024 Nayamary ellen Goodwin APRN [address] [place] [address], [address] [place] [address] , [employer] 5 10:06:33 Chronic vertigo 92749803292 105 Active 2024 Nayamary ellen Goodwin APRN [address] [place] [address], [address] [place] [address] , [employer] 5 16:48:18 Problem Notes None recorded. Procedures Surgical History Date Name Laterality Status Provider Name and Address Organization Details Recorded Time 11/01/19 24 Most Recent Mammogram completed [email or web address] 12/12/2023 11:29:34 09/29/19 23 Date of Last Pap Smear completed [employer] 04/04/2023 14:50:35 04/05/19 23 Suture/Staple removal completed Nayamary ellen Goodwin APRN [address] [place] [address], [address] [place] [address], [employer] 04/05/2022 09:45:46 03/25/19 21 Tlh uterus 250 g or less completed Not Available [facility] 11/03/2021 22:56:26 06/07/19 19 cholecystectomy completed Not Available [facility] 11/03/2021 22:56:26 Hysterectomy completed [employer] 11/17/2021 11:54:15 Appendectomy completed [employer] 11/17/2021 11:54:25 Imaging Results None recorded. Procedure Notes None recorded. Medical Equipment None Reported. Allergies Allergen ID Allergen Name Allergen Category Reaction Reaction Severity Criticality Documentation Date Start Date Code Code System Note Provider Name and Address Organization Details Recorded Time 06312 Product containin g penicilli n (product) medicatio n Not available Not available Not available 11/03/2021 47885 8001 SNOMED LYNDSEY [place]HR[place] dunn [facility] [employer] 08:48:34 12714 sulfameth oxazole medicatio n Not available Not available Not available 11/03/2021 14382 RxNorm Not Available [facility] 2 22:57:14 40536 Chantix medicatio n Not available Not available Not available 11/03/2021 80329 0 RxNorm Not Available [facility] 2 22:57:14 Medications Name Sig Start Date [...] Not Available Not Available Not Available sully jamieBalajijohnathan enesin 10 mg-100 mg/5 mL oral syrup [...] Updated DateTime 5 157.48 cm 24 kg/m2 02552.6 g 98.4 [degF] 113 /min 96 % 96 % 112/73 mm[Hg] MARY CANTOR [employer] 5 15:09:15 Social History Question Answer Notes LastModified by Organizat ion Details LastModified Time Tobacco Smoking Status Former Smoker LYNDSEY dunn [employer] 12/04/2021 08:51:44 Do You Have An [...] Or The Highest Degree You Have Received? [id number] Information not available 11/17/2021 When Did You Quit Smoking? 1-5yearssinc elastcigaret te Information not available 11/17/2021 Are There Any Guns Present In Your Home? No Information not available 11/17/2021 Do You Have A Medical Power Of Well Reactivator Operator? No Information not available 11/17/2021 What Was [...] Functional Status Question Answer Note LastModified by AURSOS ion Details LastModified Time Do you use [...] anxious, or unable to sleep at night)? [id number] [id number] Information not available 02/27/2024 Do you have difficulty concentrating, remembering or making decisions? No Information no t available 11/17/2021 Family History Relationship Description Onset Age of this Age Resolved Age Notes LastModified by Organization Details LastModified Time Father No current problems or disability Not available 09:44:05 Mother No current problems or disability [email or web address] Not available 09:44:05 Medical History Condition Response [...] virus, quadrivalent, PF 3 completed Allegra Stephens, RETAIL INTERIOR DESIGNER [address] [place] [address], [address], [employer] 12/03/2022 10:26:06 COVID-19, mRNA, LNP-S, PF, 100 mcg/0.5mL dose or 50 mcg/0.25mL dose 1 completed MARY CANTOR null, [employer] 04/05/2022 09:07:25 COVID-19, mRNA, LNP-S, PF, 100 mcg/0.5mL dose or 50 mcg/0.25mL dose 1 completed MARY CANTOR null, [employer] 04/05/2022 09:07:25 Influenza, split virus, quadrivalent, preservative 8 completed Not Available [facility] 11/03/2021 22:57:21 Influenza, split virus, quadrivalent, PF 1 completed Not Available [facility] 11/03/2021 22:57:21 Influenza, split virus, quadrivalent, PF 0 completed Not Available [facility] 11/03/2021 22:57:22 Influenza, split virus, trivalent, preservative 7 completed Not Available [facility] 04/04/2023 14:24:12 Influenza, split virus, trivalent, preservative 9 completed Not Available [facility] 04/04/2023 14:24:12 Hep A, adult 8 completed Not Available [facility] 11/03/2021 22:57:23 Hep A, adult 9 completed Not Available [facility] 11/03/2021 22:57:23 COVID-19, mRNA, LNP-S, PF, caprice-sucrose, 30 mcg/0.3 mL 4 completed Gabrielle Butler null, [employer] 01/27/2024 16:27:56 Influenza, split virus, trivalent, PF 4 completed Naya Goodwin APRN [address] [place] [address], [address], [employer] 12/12/2023 12:03:17 Influenza, split virus, quadrivalent, preservative 9 completed MARY MYNEAR null, [employer] 04/05/2022 09:07:25 Influenza, split virus, quadrivalent, preservative 6 completed MARY MYNEAR null, [employer] 04/05/2022 09:07:25 Influenza, MDCK, quadrivalent, PF 2 completed MARY MYNEAR null, [employer] 04/05/2022 09:07:25 COVID-19, mRNA, LNP-S, PF, 100 mcg/0.5mL dose or 50 mcg/0.25mL dose 2 completed MARY MYNEAR null, [employer] 04/05/2022 09:07:25 COVID-19, mRNA, LNP-S, PF, 100 mcg/0.5mL dose or 50 mcg/0.25mL dose 1 completed MARY MYNEAR null, [employer] 04/05/2022 09:07:25 Influenza, split virus, trivalent, PF 5 completed MARY MYNEAR null, [employer] 12/19/2024 10:54:02 Past Encounters Encounter ID Performer Location Encounter Start Date Encounter Closed Date Diagnosis/Indication Diagnosis SNOMED-CT Code Diagnosis ICD10 Code Diagnosis IMO Codes Diagnosis Note [id number] Naya Goodwin [address] [address] 11/13/2024 15:34:18 11/14/2024 08:52:35 Vertigo 469446797 R42 13159518 Irritable bowel syndrome 76159216 K58.9 97973436 Continue buspar, lorazepam, and protonix with probioitic daily. Gastroesop hageal reflux disease without esophagitis 308001444 K21.9 Continue PPI. [id number] Naya Goodwin [address] [address] 11/26/2024 14:30:18 11/26/2024 15:38:16 Vertigo 898687006 R42 06283973 Health Concerns Section Related Observation LastModified by Organization Detai ls LastModified Time None Recorded Concern Status LastModified by Organization Details LastModified Time None Recorded Payers Encounter Date Sequence Insurance Name Policy Number Policy Rhodes Covered Member ID Rhodes Member ID Guarantor Name 11/26/2024 1 MEHUL-SONJA: SHAUNNA CARVER OF [facility] (MEDICARE [facility]PLACEMENT HMO) [id number] Luna Foreman [id number] Luna Foreman Notes Date Note Type [...] can't keep going like this. Naya Goodwin, RETAIL INTERIOR DESIGNER [address] [facility], [place], [address], [facility] [employer] 11/26/2024 17:09:13 OBGyn Episode No OBEpisode recorded.
--- OUTSIDE RECORDS SUMMARY | 2025-01-08 07:53 | XMS_ITS | Encounter Summary ---
Author Organization [facility] Address [address] [place] [address] Care Team Providers Care Heel Seat Laster Name Role Phone Naya Goodwin SSRS DEVELOPER Primary Care Provider [phone] Chelsey Mascorro Unavailable Yong Mata MD Unavailable Malena Burton APRN Unavailable [phone] Encounter Details Date Type Department Care Team (Late st Contact Info) Description 10/01/2024 Lab Requisition [facility] [address] [place] [address] Ara Byrnes MD [address] [place] [address] Unspecified general medical examination Social [...] Description 03/06/2025 1:00 PM EST Clinical Support [facility] Services [address], 1st [place] [address] 03/20/2025 11:20 AM EST Pharmacist Visit [facility] [address], [address] [place] [address] Neil Saldana, PharmD [address] [place] [address] 03/27/2025 1:00 PM EST Office Visit [facility] [address], [address] [place] [address] Malena Burton, SSRS DEVELOPER [address] [place] [address] 04/17/2025 2:00 PM EST Office Visit [facility] [address] [place] [address] Nevaeh Harrison S, SSRS DEVELOPER [address] [facility] [address] [place] [address] 04/25/2025 1:30 PM EST Office Visit Medical Office [facility] [address], [address] [place] [address] Arnav Ibarra MD [address] [facility] [address] [place] [address] documented as of this encounter [...] Re sult [facility] [address] [place] [address] * Source, BBFE HCV Quant PCR (10/01/2024 9:42 AM EDT) Pathologist [facility] Hepatitis C Virus (HCV) Quantitative Interpretation Not Detected Not Detected. 10/03/2024 2:38 PM EDT [facility] Blood Venous blood specimen / Unknown 10/01/2024 9:42 AM EDT 10/01/2024 10:12 AM EDT Narrative [facility] - 10/03/2024 2:38 PM EDT The [employer] M2000 HCV test is a Real Time [...] ORDERABLES Final Re sult Performing Organization Address City/[facility]/ZIP [place] [address] * Source, BBFE Hepatitis B S AG (10/01/2024 9:42 AM EDT) [facility] Hepatitis B Surf Antigen Negative Negative 10/01/2024 11:30 AM EDT [facility] Blood Venous blood specimen / Unknown 10/01/2024 9:42 AM EDT 10/01/2024 10:12 AM EDT Ara Byrnes MD LAB BLOOD ORDERABLES Final Re sult Performing Organization Address City/[facility]/ZIP Co de Phone Number [facility] [address] [place] [address] documented in this encounter Visit Diagnoses Diagnosis [...] documented as of this encounter Care Teams Heel Seat Laster Relationship Specialty Start Date End Date Naya Goodwin APRN [facility], 1926–[id number] [place], [place] [id number] PCP - General 07/11/20 Chelsey Mascorro [address] [place] [address] [facility] [address] Referring Physician Gynecology 01/19/21 Yong Mata MD [facility] [address] [place] [address] Surgeon Pain Medicine 05/12/21 Malena Burton APRN [id number] [place] [address] Nurse Practitioner Urology 06/09/23 documented as of this encounter
--- OUTSIDE RECORDS SUMMARY | 2025-01-08 07:53 | XMS_ITS | Encounter Summary ---
Author Organization [facility] Address [address] [place] [address] Care Team Providers Care Physical Damage Appraiser Name Role Phone Naya Goodwin BLOCK HANDLER Primary Care Provider [phone] Chelsey Mascorro Unavailable Yong Mata MD Unavailable Malena Burton APRN Unavailable [phone] Encounter Details Date Type Department Care Team (Late st Contact Info) Description 12/13/2024 Telephone [facility] [address] [place] [address] Malena Burton APRN [address] [place] [address] Social History Tobacco Use Types [...] appointment scheduled for 03/27/25 at 1pm at [facility]. patient verbalized understanding. reminder mailed. documented in this encounter Plan of Treatment Upcoming Encounters Date Type Department Care Team (Late st Contact Info) Description 03/06/2025 1:00 PM EST Clinical Support [facility] Laboratory Services [address], 1st [place] [address] 03/20/2025 11:20 AM EST Pharmacist Visit [facility]abolism [address], [address] [place] [address] Neil Saldana, PharmD [address] [place] [address] 03/27/2025 1:00 PM EST Office Visit [facility] Urology [address], [address] [place] [address] Malena Burton E, BLOCK HANDLER [address] [place] [address] 04/17/2025 2:00 PM EST Office Visit [facility] [address] [place] [address] Nevaeh Harrison S, BLOCK HANDLER [address] [place] [address] 04/25/2025 1:30 PM EST Office Visit Medical Office Building [facility] [address], [address] [place] [address] Arnav Ibarra MD [address] [place] [address] documented as of this encounter Visit Diagnoses [...] documented as of this encounter Care Teams Physical Damage Appraiser Relationship Specialty Start Date End Date Naya Goodwin APRN [address] [place] [address] PCP - General 07/11/20 Chelsey Mascorro [address] [place] [address] [place], [place] [id number] Referring Physician Gynecology 01/19/21 Yong Mata MD [address] [facility] [address] [place] [address] Surgeon Pain Medicine 05/12/21 Malena Burton APRN [address] [place] [address] Nurse Practitioner Urology 06/09/23 documented as of this encounter
--- OUTSIDE RECORDS SUMMARY | 2025-01-08 07:53 | XMS_ITS | Data Portability ---
Author Organization [email or web address] Address [address] [place] [address] Assessment Encounter Date Assessment Date Assessment LastModified [...] if symptoms worsen. Not available 11/26/2024 17:08:55 12/19/2024 12/19/2024 Luna Foreman presents with chronic [...] meclizine and Flonase, E[facility] referral to [facility] for evaluation, and continuing muscle relaxers for neck stiffness. Not available 12/29/2024 15:47:48 01/07/2025 01/07/2025 Luna Foreman, a postmenopausal woman, [...] Time Details Appointments None record ed. Lab rf (rheum atoid factor ), serum 2024 025 [facility]), [address] [place], [address], 09:08:15 uric acid, serum or plasma 2024 025 [facility]), [address] [place], [address], 09:08:17 CBC w/ auto diff 2024 025 [facility]), [address] [place], [address], 5 09:08:13 cobala min and folate panel, serum 2024 025 [facility]), [address] [place], [address], 09:08:14 CMP, serum or plasma 2024 025 [facility]), [address] [place], [address], 5 09:08:14 TSH, ultra- sensit mitesh, serum 2024 025 [facility]), [address] [place], [address], 5 09:08:16 vitami n D, 25-hyd donavon, total, serum 2024 025 [facility]), [address] [place], [address], 5 09:08:16 iron + TIBC + ferrit in, serum 2024 025 [facility]), [address] [facility], [place], [address], 5 09:08:13 HbA1c (hemog lobin A1c), blood 2024 025 [facility] ([place]), [address] [facility], [place], [address], 5 09:08:15 Referral otolar yngolo gist referr al 2024 025 [email or web address] on [facility], [address], [place], [address], 08:04:53 Procedures None record ed. Surgeries None record ed. Imaging LDCT, chest, for lung cancer screen ing - same day as mammo [address] -New Scheduling, [address], [place], [place], [address], 09:18:28 MAMMO, screen ing, digita l, bilate ral - same day as LDCT [address] (Scheduling), [address], [place], [address], 09:18:03 Medication Orders escita lopram 10 mg tablet 2024 025 [facility], [address] [place] [address], [address], 17:08:14 mecliz ine 25 mg tablet 2024 025 [facility], [address] [place] [address], [address], 10:07:37 flutic asone propio ancelmo 50 mcg/ac tuatio n nasal spray, suspen frandy 2024 [facility], [address] [place] [address], [address], 14:16:07 flucon azole 150 mg tablet 2024 [facility], [address] [place] [address], [address], 12:13:28 promet hazine 12.5 mg tablet 2024 [facility], [address] [place] [address], [address], 16:57:46 mecliz ine 25 mg tablet 2024 [facility], [address] [place] [address], [address], 16:35:10 Medrol (Jackson) 4 mg tablet s in a dose pack 2024 [facility], [address] [place] [address], [address], 17:31:30 promet hazine 12.5 mg tablet [email or web address] [place] [address] Pharmacy, [address] [place] [address], [address], 16:51:21 mecliz ine 12.5 mg tablet 2024 025 [facility], [address] [place] [address], [address], 05:01:08 promet hazine 25 mg/mL inject ion soluti on 2024 025 [email or web address] Not available 15:00:29 pantop razole 40 mg tablet ,delay ed releas e 2024 025 [facility], [address] [place] [address], [address], 16:38:14 Difluc an 150 mg tablet 2024 025 [email or web address], [address] [place] [address], [address], 15:54:29 cyanoc obalam in (vit B-12) 1,000 mcg/mL inject ion soluti on 2024 025 [email or web address] Not available 15:54:26 Patient TargetsNo targets recorded. Patient InstructionsNo instructions recorded. 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) [address] [place], [address], 08/25/2024 09:08:13 08/25/1908/25/2024 FE+TI BC+FE R UIBC 257 ug/dL 118-36 9 normal Not Available [facility] ([facility]) [address] [place], [address], 08/25/2024 09:08:13 08/25/19 25 08/25/2024 FE+TI BC+FE R iron 61 ug/dL 27-139 normal Not Available [facility] ([facility]) [address] [place], [address], 08/25/2024 09:08:13 08/25/1908/25/2024 FE+TI BC+FE R iron saturation 19 % 15-55 normal Not Available [facility] ([facility]) [address] [place], [address], 08/25/2024 09:08:13 08/25/1908/25/2024 FE+TI BC+FE R ferritin 37 NG/mL 15-150 normal Not Available [facility] ([facility]) [address] [place], [address], 08/25/2024 09:08:13 08/25/1908/25/2024 CBC WITH DIFFE RENTI AL/PL ATELE T WBC 7.6 x10e3 /uL 3.4-10 .8 normal Not Available [facility] ([facility]) [address] [place], [address], 08/25/2024 09:08:13 08/25/1908/25/2024 CBC WITH DIFFE RENTI AL/PL ATELE T RBC 4.22 x10e6 /uL 3.77-5 .28 normal Not Available [facility] ([facility]) [address] [place], [address], 08/25/2024 09:08:13 08/25/1908/25/2024 CBC WITH DIFFE RENTI AL/PL ATELE T hemoglobin 13.3 g/dL 11.1-1 5.9 normal Not Available [facility] ([facility]) [address] [place], [address], 08/25/2024 09:08:13 08/25/1908/25/2024 CBC WITH DIFFE RENTI AL/PL ATELE T hematocrit 42.8 % 34.0-4 6.6 normal Not Available [facility] ([facility]) [address] [place], [address], 08/25/2024 09:08:13 08/25/19 25 08/25/2024 CBC WITH DIFFE RENTI AL/PL ATELE T MCV 101 fL 79-97 above high normal Not Available [facility] ([facility]) [address] [facility], [place], [address], 08/25/2024 09:08:13 08/25/1908/25/2024 CBC WITH DIFFE RENTI AL/PL ATELE T MCH 31.5 pg 26.6-3 3.0 normal Not Available [facility] ([facility]) [address] [place], [address], 08/25/2024 09:08:13 08/25/19 25 08/25/2024 CBC WITH DIFFE RENTI AL/PL ATELE T MCHC 31.1 g/dL 31.5-3 5.7 below low normal Not Available [facility] ([facility]) [address] [facility], [place], [address], 08/25/2024 09:08:13 08/25/1908/25/2024 CBC WITH DIFFE RENTI AL/PL ATELE T RDW 12.1 % 11.7-1 5.4 Not Available [facility] ([facility]) [address] [facility], [place], [address], 08/25/2024 09:08:13 08/25/1908/25/2024 CBC WITH DIFFE RENTI AL/PL ATELE T platelets 234 x10e3 /uL 150-45 0 normal Not Available [facility] ([facility]) [address] [place], [address], 08/25/2024 09:08:13 08/25/19 25 08/25/2024 CBC WITH DIFFE RENTI AL/PL ATELE T neutrophils 61 % not estab. normal Not Available [facility] ([facility]) [address] [place], [address], 08/25/2024 09:08:13 08/25/19 25 08/25/2024 CBC WITH DIFFE RENTI AL/PL ATELE T lymphs 30 % not estab. normal Not Available [facility] ([facility]) [address] [facility], [place], [address], 08/25/2024 09:08:13 08/25/19 25 08/25/2024 CBC WITH DIFFE RENTI AL/PL ATELE T monocytes 5 % not estab. normal Not Available [facility] ([facility]) [address] [facility], [place], [address], 08/25/2024 09:08:13 08/25/19 25 08/25/2024 CBC WITH DIFFE RENTI AL/PL ATELE T eos 3 % not estab. normal Not Available [facility] ([facility]) [address] [facility], [place], [address], 08/25/2024 09:08:13 08/25/19 25 08/25/2024 CBC WITH DIFFE RENTI AL/PL ATELE T basos 1 % not estab. normal Not Available [facility] (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) [address] [place], [address], 08/25/2024 09:08:13 08/25/19 25 08/25/2024 CBC WITH DIFFE RENTI AL/PL ATELE T neutrophils (absolute) 4.7 x10e3 /uL 1.4-7. 0 normal Not Available [facility] ([facility]) [address] [facility], [place], [address], 08/25/2024 09:08:13 08/25/19 25 08/25/2024 CBC WITH DIFFE RENTI AL/PL ATELE T lymphs (absolute) 2.3 x10e3 /uL 0.7-3. 1 normal Not Available [facility] ([facility]) [address] [place], [address], 08/25/2024 09:08:13 08/25/19 25 08/25/2024 CBC WITH DIFFE RENTI AL/PL ATELE T monocytes(ab solute) 0.4 x10e3 /uL 0.1-0. 9 normal Not Available [facility] ([facility]) [address] [place], [address], 08/25/2024 09:08:13 08/25/1908/25/2024 CBC WITH DIFFE RENTI AL/PL ATELE T eos (absolute) 0.2 x10e3 /uL 0.0-0. 4 normal Not Available [facility] ([facility]) [address] [place], [address], 08/25/2024 09:08:13 08/25/19 25 08/25/2024 CBC WITH DIFFE RENTI AL/PL ATELE T baso (absolute) 0.0 x10e3 /uL 0.0-0. 2 normal Not Available [facility] ([facility]) [address] [place], [address], 08/25/2024 09:08:13 08/25/1908/25/2024 CBC WITH DIFFE RENTI AL/PL ATELE T immature granulocytes 0 % not estab. Not Available [facility] ([facility]) [address] [place], [address], 08/25/2024 09:08:13 08/25/1908/25/2024 CBC WITH DIFFE RENTI AL/PL ATELE T immature grans (abs) 0.0 x10e3 /uL 0.0-0. 1 Not Available [facility] ([facility]) [address] [place], [address], 08/25/2024 09:08:13 08/25/19 25 08/25/2024 CBC WITH DIFFE RENTI AL/PL ATELE T NRBC SEWAGE DISPOSAL ENGINEER Not Available [facility] ([facility]) [address] [facility], [place], [address], 08/25/2024 09:08:13 08/25/19 25 08/25/2024 CBC WITH DIFFE RENTI AL/PL ATELE T hematology comments: SEWAGE DISPOSAL ENGINEER Not Available [facility] ([facility]) [address] [facility], [place], [address], 08/25/2024 09:08:13 08/25/19 25 08/25/2024 COMP. METAB OLIC PANEL (14) glucose 86 mg/dL 70-99 normal Not Available [facility] ([facility]) [address] [facility] [place], [address], 08/25/2024 09:08:14 08/25/19 25 08/25/2024 COMP. METAB OLIC PANEL (14) BUN 14 mg/dL 8-27 normal Not Available [facility] ([facility]) [address] [facility] [place], [address], 08/25/2024 09:08:14 08/25/19 25 08/25/2024 COMP. METAB OLIC PANEL (14) creatinine 0.95 mg/dL 0.57-1 .00 normal Not Available [facility] ([facility]) [address] [facility] [place], [address], 08/25/2024 09:08:14 08/25/19 25 08/25/2024 COMP. METAB OLIC PANEL (14) eGFR 68 mL/mi n/1.7 3 >59 normal Not Available [facility] ([facility]) [address] [facility] [place], [address], 08/25/2024 09:08:14 08/25/19 25 08/25/2024 COMP. METAB OLIC PANEL (14) BUN/creatini ne ratio 15 12-28 normal Not Available [facility] ([facility]) [address] [place], [address], 08/25/2024 09:08:14 08/25/19 25 08/25/2024 COMP. METAB OLIC PANEL (14) sodium 141 mmol/ L 134-14 4 normal Not Available [facility] ([facility]) [address] [place], [address], 08/25/2024 09:08:14 08/25/19 25 08/25/2024 COMP. METAB OLIC PANEL (14) potassium 4.7 mmol/ L 3.5-5. 2 normal Not Available [facility] ([facility]) [address] [place], [address], 08/25/2024 09:08:14 08/25/19 25 08/25/2024 COMP. METAB OLIC PANEL (14) chloride 102 mmol/ L 96-106 normal Not Available [facility] ([facility]) [address] [place], [address], 08/25/2024 09:08:14 08/25/19 25 08/25/2024 COMP. METAB OLIC PANEL (14) carbon dioxide, total 23 mmol/ L 20-29 normal Not Available [facility] ([facility]) [address] [place], [address], 08/25/2024 09:08:14 08/25/19 25 08/25/2024 COMP. METAB OLIC PANEL (14) calcium 9.1 mg/dL 8.7-10 .3 normal Not Available [facility] ([facility]) [address] [place], [address], 08/25/2024 09:08:14 08/25/19 25 08/25/2024 COMP. METAB OLIC PANEL (14) protein, total 6.8 g/dL 6.0-8. 5 normal Not Available [facility] ([facility]) [address] [place], [address], 08/25/2024 09:08:14 08/25/19 25 08/25/2024 COMP. METAB OLIC PANEL (14) albumin 4.4 g/dL 3.9-4. 9 normal Not Available [facility] ([facility]) [address] [place], [address], 08/25/2024 09:08:14 08/25/19 25 08/25/2024 COMP. METAB OLIC PANEL (14) globulin, total 2.4 g/dL 1.5-4. 5 Not Available [facility] ([facility]) [address] [place], [address], 08/25/2024 09:08:14 08/25/19 25 08/25/2024 COMP. METAB OLIC PANEL (14) bilirubin, total <0.2 mg/dL 0.0-1. 2 Not Available [facility] ([facility]) [address] [place], [address], 08/25/2024 09:08:14 08/25/19 25 08/25/2024 COMP. METAB OLIC PANEL (14) alkaline phosphatase 124 IU/L 44-121 above high normal Not Available [facility] ([facility]) [address] [place], [address], 08/25/2024 09:08:14 08/25/19 25 08/25/2024 COMP. METAB OLIC PANEL (14) AST (SGOT) 15 IU/L 0-40 normal Not Available [facility] ([facility]) [address] [place], [address], 08/25/2024 09:08:14 08/25/19 25 08/25/2024 COMP. METAB OLIC PANEL (14) ALT (SGPT) 12 IU/L 0-32 normal Not Available [facility] ([facility]) [address] [place], [address], 08/25/2024 09:08:14 08/25/1908/25/2024 VITAM IN B12 AND FOLAT E vitamin B12 >2000 pg/mL 232-12 45 above high normal Not Available [facility] ([facility]) [address] [facility], [place], [address], 08/25/2024 09:08:14 08/25/1908/25/2024 VITAM IN B12 AND FOLAT E folate (folic acid), serum 2.6 NG/mL >3.0 below low normal A serum folat e esteban ntrat ion of less than 3.1 ng/mL is consi dered to repre sent clini lillie defic iency . Not Available [facility] ([facility]) [address] [facility], [place], [address], 08/25/2024 09:08:14 08/25/1908/25/2024 HEMOG LOBIN A1C hemoglobin A1C 5.5 % 4.8-5. 6 normal Predi abete s: 5.7 - 6.4 Diabe ritesh: >6.4 Glyce wai contr ol for adult s with diabe ritesh: <7.0 Not Available [facility] ([facility]) [address] [facility], [place], [address], 08/25/2024 09:08:15 08/25/1908/25/2024 RHEUM ATOID FACTO R (RF) rheumatoid factor (rf) <10.0 IU/mL <14.0 Not Available [facility]) [address] [facility], [place], [address], 08/25/2024 09:08:15 08/25/1908/25/2024 VITAM IN D, 25-HY [...] IOM (Inst itute of Medic ine). 2010. Dieta ry refer ence intak es for calci um and D. Amy morales [place]: [facility] . 2. Mckinley arreguin [place], Billie collado [place], Bisch off-F errar i THACKER, et al. Evalu ation , treat ment, and preve ntion of vitam in D defic iency : an Endoc rine Socie ty clini lillie pract ice guide line. JCEM. 2010; 96(7) :1911 -30. Not Available [facility] ([facility]) [address] [place], [address], 08/25/2024 09:08:16 08/25/19 25 08/25/2024 TSH RFX ON ABNOR MAL TO FREE T4 TSH 1.910 uIU/m L 0.450- 4.500 normal Not Available [facility] ([facility]) [address] [place], [address], 08/25/2024 09:08:16 08/25/19 25 08/25/2024 URIC ACID uric acid 3.9 mg/dL 3.0-7. 2 normal Thera salmai govind targe t for gout patie nts: <6.0 Not Available [facility] ([facility]) [address] [place], [address], 08/25/2024 09:08:17 12/15/1912/14/2024 CT, head + brain , w/o contr ast No observ ation record ed. [email or web address] [facility] [address], [place], [address], 12/17/2024 09:08:23 10/12/14/2024 CT, angio gram, neck, w/ contr ast No observ ation record ed. [address], [place], [address], 12/17/2024 09:08:06 12/15/1912/14/2024 CT, angio gram, head, w/wo contr ast No observ ation record ed. [address], [place], [address], 12/17/2024 09:07:32 12/15/1912/14/2024 elect refugio diogr am, routi ne ECG, 12 leads min No observ ation record ed. [address], [place], [address], 12/17/2024 09:07:13 Result Notes None recorded. Problems Name Problem SNOMED Code Status Onset Date Resolution Date Notes Provider Name and Address Organization Details Recorded Time Major depressi on, single episode 36122269 Completed 201605/19/2017 Problem Code: F32.9; Problem Code Type: ICD-10; Not Available [facility] 22:26:38 Moderate recurren t major depressi on 86483346 Completed 201611/26/2018 Problem Code: F33.1; Problem Code Type: ICD-10; Not Available [facility] 2 22:26:38 Lumbosac ral radiculo aiden 8132648 Completed 201611/17/2017 Problem Code: M54.16; Problem Code Type: ICD-10; Not Available [facility] 22:26:44 Low back pain 588131540 Completed 201611/17/2017 Problem Code: 724.2; Problem Code Type: ICD-9; Naya Goodwin, NATALIE [address] [place] [address], [phone] , [facility] [employer] 4 08:40:49 Chronic obstruct mitesh pulmonar y disease 23284681 Completed 201607/11/2020 Problem Code: 496; Problem Code Type: ICD-9; Not Available [facility] 2 22:27:12 Influenz a 0557259 Completed 201704/08/2017 Problem Code: J10.1; Problem Code Type: ICD-10; MARY RANDLEELIZABETH mona, [email or web address] 2 11:49:03 Influenz a with non-resp iratory manifest ation 53773822 Completed 201704/08/2017 Problem Code: 487.8; Problem Code Type: ICD-9; Not Available [facility] 2 22:27:11 Generali zed anxiety disorder 42832287 Completed 201708/17/2017 Problem Code: F41.1; Problem Code Type: ICD-10; Not Available [facility] 2 22:26:38 Gastroes ophageal reflux disease without esophagi tis 531548821 Completed 201711/17/2021 MARY RANDLEELIZABETH mona, [email or web address] 2 11:49:03 Gastro-e sophagea l reflux disease with esophagi tis 476014087 Active 2017 Problem Code: K21.0; Problem Code Type: ICD-10; Not Available [facility] 2 22:27:00 Gastroes ophageal reflux disease 132042653 Completed 201707/11/2020 Problem Code: 530.81; Problem Code Type: ICD-9; Not Available [facility] 2 22:27:07 Moderate recurren t major depressi on 21732089 Active 2017 Problem Code: F33.1; Problem Code Type: ICD-10; Not Available [facility] 22:26:38 Chronic post-tra umatic stress disorder 728771402 Completed 201708/19/2017 Problem Code: F43.12; Problem Code Type: ICD-10; Not Available [facility] 22:26:38 Post-tra umatic stress disorder 27929342 Active 2017 Problem Code: F43.10; Problem Code Type: ICD-10; Not Available [facility] 22:26:39 Sleep behavior finding 667077916 Completed 201711/17/2017 Not Available [facility] 22:26:39 Chronic pain syndrome 089231308 Active 2017 Problem Code: G89.4; Problem Code Type: ICD-10; Not Available [facility] 22:26:39 Sarah smiley Completed 201711/17/2017 MARY dunn [email or web address] 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 38196499 Completed 201707/11/2020 Problem Code: 053.12; Problem Code Type: ICD-9; Not Available [facility] 22:27:02 Organic sleep disorder 098461108 Completed 201711/17/2017 Problem Code: 327.8; Problem Code Type: ICD-9; Not Available [facility] 22:27:06 Asthenia 48848734 Completed 201711/17/2017 Problem Code: R53.1; Problem Code Type: ICD-10; Not Available [facility] 22:27:08 Malaise and fatigue 149717387 Completed 201711/17/2017 Problem Code: 780.79; Problem Code Type: ICD-9; Not Available [facility] 22:27:09 Hyperlip idemia ezequiel smiley Completed 201711/17/2017 Problem Code: V77.91; Problem Code Type: ICD-9; Not Available [facility] 22:27:09 Herpesvi uzma infectio n 60688394 Completed 201711/26/2018 Problem Code: A60.09; Problem Code Type: ICD-10; Not Available [facility] 22:26:37 Genital herpes simplex 05877495 Completed 201707/11/2020 Problem Code: 054.19; Problem Code Type: ICD-9; Not Available [facility] 09/05/202 2 22:27:01 Acute sinusiti s 34684873 Completed 201712/01/2017 Problem Code: J01.90; Problem Code Type: ICD-10; MARY RAZIAELIZABETH dunn, [employer] 11:49:03 Otitis externa 7355601 Completed 201702/14/2018 Problem Code: H60.339; Problem Code Type: ICD-10; Not Available [facility] 22:26:39 Acute sinusiti s 03211360 Completed 201701/02/2018 Problem Code: J01.90; Problem Code Type: ICD-10; MARY RAZIAELIZABETH dunn, [employer] 11:49:03 Nausea and vomiting 84455205 Completed 201702/14/2018 Problem Code: R11.2; Problem Code Type: ICD-10; Not Available [facility] 22:26:48 Acute swimmer' s ear Completed 201702/14/2018 Problem Code: 380.12; Problem Code Type: ICD-9; Not Available [facility] 22:27:04 Nausea 497470674 Completed 201811/26/2018 Problem Code: R11.0; Problem Code Type: ICD-10; Not Available [facility] 22:26:47 Generali zed abdomina l pain 596440943 Completed 201811/26/2018 Problem Code: R10.84; Problem Code Type: ICD-10; Not Available [facility] 22:26:46 Nausea and vomiting 09634430 Completed 201811/26/2018 Problem Code: R11.2; Problem Code Type: ICD-10; Not Available [facility] 22:26:47 Abdomina l bloating 652441530 Completed 201811/17/2021 Problem Code: R14.0; Problem Code Type: ICD-10; MARY RAZIAELIZABETH dunn, [employer] 11:49:02 Generali zed anxiety disorder 55753483 Active 2018 Problem Code: F41.1; Problem Code Type: ICD-10; Not Available [facility] 2 22:26:38 Chronic post-tra umatic stress disorder 022166460 Completed 201811/26/2018 Problem Code: F43.12; Problem Code Type: ICD-10; Not Available [facility] 2 22:26:38 Acute sinusiti s 03548270 Completed 201811/26/2018 Problem Code: J01.90; Problem Code Type: ICD-10; MARY CANTOR null, [employer] 11:49:03 Onycholy sis 46103671 Completed 201811/26/2018 Problem Code: L60.1; Problem Code Type: ICD-10; Not Available [facility] 22:26:44 Renal angle tenderne ss 939951274 Completed 201811/17/2021 Problem Code: R10.821; Problem Code Type: ICD-10; MARY CANTOR null, [employer] 11:49:02 Dehydrat ion 94833491 Completed 201811/26/2018 Problem Code: E86.0; Problem Code Type: ICD-10; Not Available [facility] 22:26:38 Low blood pressure 36615840 Completed 201811/26/2018 Problem Code: I95.9; Problem Code Type: ICD-10; Naya Goodwin APRN [address] [place] [address], [phone] , [employer] 5 15:57:42 Screenin g mammogra phy Completed 201811/26/2018 Problem Code: Z12.31; Problem Code Type: ICD-10; MARY CANTOR null, [employer] 2 11:49:03 Influenz a vaccine needed [id number] 06 Completed 201811/17/2021 Problem Code: Z23; Problem Code Type: ICD-10; AMRY DIAZR null, [employer] 2 11:49:02 Snoring 97089721 Completed 201809/24/2019 Problem Code: R06.83; Problem Code Type: ICD-10; Not Available [facility] 2 22:26:46 Hemorrho ids 37338643 Completed 201809/24/2019 Problem Code: K64.9; Problem Code Type: ICD-10; Not Available [facility] 2 22:26:43 Acute sinusiti s 31528677 Completed 201809/04/2019 Problem Code: J01.90; Problem Code Type: ICD-10; MARY DIAZR null, [employer] 2 11:49:03 General examinat ion of patient Completed 201907/11/2020 MARY DIAZR null, [employer] 2 11:49:03 Body mass index 20-24 - normal 088641711 Active 2019 Not Available [facility] 2 22:26:59 Low blood pressure 60377369 Completed 201911/06/2019 Problem Code: I95.9; Problem Code Type: ICD-10; Naya Goodwin, NATALIE [address] [place] [address], [phone] , [employer] 5 15:57:42 Function al diarrhea 78540165 Completed 201911/06/2019 Problem Code: K59.1; Problem Code Type: ICD-10; Not Available [facility] 2 22:26:42 Influenz a 9717875 Completed 201911/17/2021 Problem Code: J10.1; Problem Code Type: ICD-10; MARY DIAZR null, [employer] 2 11:49:03 Pyrexia of unknown origin 3418063 Completed 201909/04/2019 Problem Code: R50.9; Problem Code Type: ICD-10; MARY RAZIANEAR null, [employer] 2 11:49:03 Nausea 852669955 Completed 201909/04/2019 Problem Code: R11.0; Problem Code Type: ICD-10; Not Available [facility] 2 22:26:47 Acute sinusiti s 35799989 Completed 201909/24/2019 Problem Code: J01.90; Problem Code Type: ICD-10; MARY MYELIZABETH dunn, [employer] 2 11:49:03 Vitamin D deficien cy 59240879 Active 2019 Problem Code: E55.9; Problem Code Type: ICD-10; Not Available [facility] 2 22:26:38 Dysplasi a of vulva 788874730 Completed 201908/31/2021 Problem Code: N90.3; Problem Code Type: ICD-10; Not Available [facility] 2 22:26:45 Screenin g mammogra phy Completed 201911/06/2019 Problem Code: Z12.31; Problem Code Type: ICD-10; MARY MYELIZABETH null, [employer] 2 11:49:03 Current drug user 439993957 Completed 201911/06/2019 Problem Code: Z79.899; Problem Code Type: ICD-10; Naya Goodwin, MATERIALS ANALYST [address] [place] [address], [address] , [employer] 4 08:41:04 Acute pansinus itis 7893077 Completed 201911/17/2021 Problem Code: J01.41; Problem Code Type: ICD-10; MARY RAZIAELIZABETH dunn, [employer] 2 11:49:03 Influenz a vaccine needed 88123551454 06 Completed 201912/25/2019 Problem Code: Z23; Problem Code Type: ICD-10; MARY RAZIAELIZABETH dunn, [employer] 2 11:49:02 Low blood pressure 23720628 Completed 201908/31/2021 Problem Code: I95.9; Problem Code Type: ICD-10; Naya Goodwin APRN [address] [place], [address] , [employer] 5 15:57:42 Acute pansinus itis 2063537 Completed 201903/17/2020 Problem Code: J01.41; Problem Code Type: ICD-10; MARY RANDLENEAR null, [employer] 11:49:03 Tobacco dependen ce caused by cigarett es 48231776300 663426 Active 2020 Problem Code: F17.210; Problem Code Type: ICD-10; Not Available [facility] 22:26:38 General examinat ion of patient Completed 202007/11/2020 MARY DIAZR null, [employer] 2 11:49:03 Body mass index 20-24 - normal 106215803 Completed 202007/11/2020 Not Available [facility] 22:26:59 Dysuria 39262539 Completed 202011/17/2021 Problem Code: R30.0; Problem Code Type: ICD-10; MARY RANDLENEAR null, [employer] 2 11:49:03 Acute sinusiti s 39778591 Completed 202011/17/2021 Problem Code: J01.90; Problem Code Type: ICD-10; MARY RAZIANEAR null, [employer] 2 11:49:03 Lumbosac ral radiculo aiden 5638553 Active 2020 Problem Code: M54.16; Problem Code Type: ICD-10; Not Available [facility] 2 22:27:02 Irritabl e bowel syndrome 57419960 Active 2020 Problem Code: K58.2; Problem Code Type: ICD-10; Naya Goodwin APRN [address] [place], [address] , [employer] 5 16:08:54 Screenin g mammogra phy Completed 202011/17/2021 Problem Code: Z12.31; Problem Code Type: ICD-10; MARY RAZIAJAYESHR null, [employer] 2 11:49:03 Ingrowin g nail 667982608 Completed 202008/31/2021 Problem Code: L60.0; Problem Code Type: ICD-10; Not Available [facility] 22:26:43 Disorder of upper respirat ory system 741598118 Completed 202011/17/2021 Problem Code: J06.9; Problem Code Type: ICD-10; MARY RAZIAJAYESHR null, [employer] 2 11:49:03 Otogenic otalgia 39249737 Completed 202012/04/2021 LYNDSEY CHISHOLMNER null, [employer] 08:50:49 Allergic rhinitis 76444997 Completed 202011/17/2021 Problem Code: J30.9; Problem Code Type: ICD-10; MARY MYNEAR null, [employer] 2 11:49:03 Influenz a vaccine needed 87596778695 06 Completed 202008/31/2021 Problem Code: Z23; Problem Code Type: ICD-10; MARY MYNEAR null, [employer] 2 11:49:02 Benign paroxysm al position al vertigo or nystagmu s 372285589 Completed 202111/17/2021 MARY RAZIANEAR null, [employer] 2 11:49:03 General examinat ion of patient Completed 202111/17/2021 MARY RAZIANEAR null, [employer] 11:49:03 Acute sinusiti s 77796192 Completed 202108/31/2021 Problem Code: J01.90; Problem Code Type: ICD-10; MARY RANDLEELIZABETH mona, [email or web address] 11:49:03 Dizzines s and giddines s 970794542 Completed 202108/31/2021 Problem Code: R42; Problem Code Type: ICD-10; MARY RANDLEELIZABETH null, [facility] 11:49:03 Headache 02910943 Completed 202111/17/2021 Problem Code: R51; Problem Code Type: ICD-10; MARY RANDLEELIZABETH mona, [facility] 11:49:03 Chronic fatigue syndrome 32687034 Completed 202108/31/2021 Problem Code: R53.82; Problem Code Type: ICD-10; Not Available [facility] 22:26:51 Exposure to SARS-CoV -2 Completed 202111/17/2021 Problem Code: Z20.822; Problem Code Type: ICD-10; MARY RANDLEELIZABETH mona, [facility] 11:49:03 Dizzines s and giddines s 785265957 Completed 202111/17/2021 Problem Code: R42; Problem Code Type: ICD-10; MARY RANDLEELIZABETH null, [facility] 11:49:03 Acute non-supp urative serous otitis media 966292756 Completed 202111/17/2021 Problem Code: H65.01; Problem Code Type: ICD-10; MARY RAZIAELIZABETH null, [email or web address] 11:49:03 Influenz a 9650572 Completed 202108/31/2021 Problem Code: J10.1; Problem Code Type: ICD-10; MARY RAZIAELIZABETH dunn, [facility] 2 11:49:03 Choleste rol screenin g Completed 202108/31/2021 MARY dunn, [employer] 2 11:49:36 Low blood pressure 77292324 Completed 202108/31/2021 Problem Code: I95.9; Problem Code Type: ICD-10; Naya Goodwin APRN [address] [place] [address], [address] [place] [address] , [employer] 5 15:57:42 Pyrexia of unknown origin 4999677 Completed 202111/17/2021 Problem Code: R50.9; Problem Code Type: ICD-10; MARY dunn, [employer] 2 11:49:03 Tick-bor ne relapsin g fever 78572219 Completed 202111/17/2021 Problem Code: A68.1; Problem Code Type: ICD-10; MARY dunn, [employer] 2 11:49:02 Candidia sis of vagina 07999888 Active 2024 Naya Goodwin APRN [address] [place] [address], [address] [place] [address] , [employer] 5 10:26:24 Cobalami n deficien cy 055663213 Active 2024 Naya Godowin APRN [address] [place] [address], [address] [place] [address] , [employer] 5 10:28:44 Vertigo 655964448 Active 2024 Naya Goodwin APRN [address] [place] [address], [address] [place] [address] , [employer] 5 10:06:33 Chronic vertigo 14299749117 105 Active 2024 Naya Goodwin APRN [address] [place] [address], [address] [place] [address] , [place] [email or web address] 5 16:48:18 Problem Notes None recorded. Procedures Surgical History Date Name Laterality Status Provider Name and Address Organization Details Recorded Time 11/01/19 24 Most Recent Mammogram completed [employer] 12/12/2023 11:29:34 09/29/19 23 Date of Last Pap Smear completed [employer] 04/04/2023 14:50:35 04/05/19 23 Suture/Staple removal completed Naya Goodwin, MATERIALS ANALYST [address] [place], [address], [email or web address] 04/05/2022 09:45:46 03/25/19 21 Tlh uterus 250 g or less completed Not Available [facility] 11/03/2021 22:56:26 06/07/19 19 cholecystectomy completed Not Available [facility] 11/03/2021 22:56:26 Hysterectomy completed [employer] 11/17/2021 11:54:15 Appendectomy completed [facility] 11/17/2021 11:54:25 Imaging Results None recorded. Procedure Notes None recorded. Medical Equipment None Reported. Allergies Allergen ID Allergen Name Allergen Category Reaction Reaction Severity Criticality Documentation Date Start Date Code Code System Note Provider Name and Address Organization Details Recorded Time 89720 Product containin g penicilli n (product) medicatio n Not available Not available Not available 11/03/2021 96930 8001 SNOMED LYNDSEY BARTLETT mona [employer] 2 08:48:34 10501 sulfameth oxazole medicatio n Not available Not available Not available 11/03/2021 01458 RxNorm Not Available [facility] 2 22:57:14 13447 Chantix medicatio n Not available Not available Not available 11/03/2021 75145 0 RxNorm Not Available [facility] 2 22:57:14 Medications Name Sig Start Date [...] Updated DateTime 5 157.48 cm 23.2 kg/m2 29027.2 3 g 98 [degF] 102 /min 94 % 94 % 90/59 mm[Hg] [employer] 5 10:13:50 Date Recorded Body height Body mass index (BMI) Body weight Body temperature Heart rate Oxygen saturation Oxygen saturation in Arterial blood by Pulse oximetry Systolic And Diastolic Provider Name and Address Organization Details Last Updated DateTime 5 157.48 cm 23.7 kg/m2 47161.5 7 g 99 [degF] 81 /min 95 % 95 % 122/75 mm[Hg] [employer] 5 15:51:18 Date Recorded Body height Body mass index (BMI) Body weight Body temperature Heart rate Oxygen saturation Oxygen saturation in Arterial blood by Pulse oximetry Systolic And Diastolic Provider Name and Address Organization Details Last Updated DateTime 5 157.48 cm 24 kg/m2 86090.6 g 98.4 [degF] 113 /min 96 % 96 % 112/73 mm[Hg] [employer] 5 15:09:15 Date Recorded Body height Body mass index (BMI) Body weight Body temperature Heart rate Oxygen saturation Oxygen saturation in Arterial blood by Pulse oximetry Systolic And Diastolic Provider Name and Address Organization Details Last Updated DateTime 5 157.48 cm 24.6 kg/m2 67096.5 3 g 96.7 [degF] 107 /min 94 % 94 % 89/62 mm[Hg] MARY CANTOR [email or web address] 10:03:59 Date Recorded Body height Body mass index (BMI) Body weight Body temperature Heart rate Oxygen saturation Oxygen saturation in Arterial blood by Pulse oximetry Systolic And Diastolic Provider Name and Address Organization Details Last Updated DateTime 5 157.48 cm 24.9 kg/m2 47393.2 8 g 98 [degF] 89 /min 93 % 93 % 131/56 mm[Hg] MARY RANDLESitesimonAlexi [email or web address] 5 16:45:26 Social History Question Answer Notes LastModified by Organizat ion Details LastModified Time Tobacco Smoking Status Former Smoker LYNDSEY BARTLETT mona [email or web address] 12/04/2021 08:51:44 Do You Have An Advance [...] Or The Highest Degree You Have Received? [id number] Information not available 11/17/2021 When Did You Quit Smoking? 1-5yearssinc elastcigaret te Information not available 11/17/2021 Are There Any Guns Present In Your Home? No Information not available 11/17/2021 Do You Have A Medical Power Of Prep Cook? No Information not available 11/17/2021 What Was [...] anxious, or unable to sleep at night)? [id number] [email or web address] Information not available 02/27/2024 Do you have difficulty concentrating, remembering or making decisions? No Information no t available 11/17/2021 Family History Relationship Description Onset Age of this Age Resolved Age Notes LastModified by Organization Details LastModified Time Father No current problems or disability [email or web address] Not available 09:44:05 Mother No current problems or disability [email or web address] Not available 09:44:05 Medical History Condition Response [...] PF 3 completed Allegra Stephens, NATALIE [address], [place], [address], [facility] [employer] 12/03/2022 10:26:06 COVID-19, mRNA, LNP-S, PF, 100 mcg/0.5mL dose or 50 mcg/0.25mL dose 1 completed MARY RANDLENEAR null, [employer] 04/05/2022 09:07:25 COVID-19, mRNA, LNP-S, PF, 100 mcg/0.5mL dose or 50 mcg/0.25mL dose 1 completed MARY RANDLENEAR null, [employer] 04/05/2022 09:07:25 Influenza, split virus, quadrivalent, [...] virus, trivalent, preservative 9 completed Not Available [facility] 04/04/2023 14:24:12 Hep A, adult 8 completed Not Available [facility] 11/03/2021 22:57:23 Hep A, adult 9 completed Not Available [facility] 11/03/2021 22:57:23 COVID-19, mRNA, LNP-S, PF, caprice-sucrose, 30 mcg/0.3 mL 4 completed Gabrielle Butler null, [employer] 01/27/2024 16:27:56 Influenza, split virus, trivalent, PF 4 completed Naya Goodwin, NATALIE [address], [place], [address], [employer] 12/12/2023 12:03:17 Influenza, split virus, quadrivalent, preservative 9 completed MARY RANDLENEAR null, [employer] 04/05/2022 09:07:25 Influenza, split virus, quadrivalent, preservative 6 completed MARY MYNEAR null, [employer] 04/05/2022 09:07:25 Influenza, MDCK, quadrivalent, PF 2 completed MARY MYNEAR null, [employer] 04/05/2022 09:07:25 COVID-19, mRNA, LNP-S, PF, 100 mcg/0.5mL dose or 50 mcg/0.25mL dose 2 completed MARY MYNEAR null, [employer] 04/05/2022 09:07:25 COVID-19, mRNA, LNP-S, PF, 100 mcg/0.5mL dose or 50 mcg/0.25mL dose 1 completed MARY MYNEAR null, [employer] 04/05/2022 09:07:25 Influenza, split virus, trivalent, PF 5 completed MARY MYNEAR null, [employer] 12/19/2024 10:54:02 Past Encounters Encounter ID Performer Location Encounter Start Date Encounter Closed Date Diagnosis/Indication Diagnosis SNOMED-CT Code Diagnosis ICD10 Code Diagnosis IMO Codes Diagnosis Note [id number] [place] [address] 11/17/2021 10:56:02 11/17/2021 12:15:42 Abdominal pain 05129625 R10.32 Patient presents with a 4 day [...] breathing or any new/concer anna marie symptoms. [id number] Naya Goodwin[address] [address] 12/02/2021 10:17:04 12/02/2021 10:49:32 Colitis 92767430 K52.9 Promethazi ne shot given and documented in order group note 12/02/2021 [id number] [place] [address] 12/04/2021 08:45:10 12/04/2021 09:35:17 Indeterminate colitis 476120520 K52.3 [id number] Radha Morris [place] [address] 12/09/2021 10:49:36 12/10/2021 10:37:42 COVID-19 665607747 U07.1 [id number] Naya Goodwin [place] [address] 0 12/21/2021 10:37:19 12/21/2021 11:29:35 COVID-19 444616278 U07.1 Inst on dehydratio n and oral fluid replacemen t inst given and explained to pt. Inst fatigue could last 4-6 weeks post covid. Mild dehydration 3293451 119 108 E86.0 Drink 1 liter gatorade today [id number] [place] [address] 01/08/2022 09:44:32 01/08/2022 10:18:22 Chronic pain syndrome 201113423 G89.4 Continue current medication s Candidiasis of vagina 72 837047 B37.31 Instructed her that if vaginitis did not improve, she should follow-up with her [facility]IC[facility] EQUIPMENT TECHNICIAN at . Generalize d anxiety disorder 66085268 F41.1 Irritable bowel syndrome 34717641 A09 [id number] [place] [address] 04/05/2022 08:48:47 04/05/2022 09:48:08 Postoperative visit 260474866 Z09 Keep f/up appt with . Advised to avoid sexual activity for another 2-4 weeks. Monitor for vaginal d/c, bleeding or pain. Generalize d anxiety disorder 09905053 F41.1 [id number] [place] [address] 0 05/03/2022 15:37:05 05/03/2022 16:18:40 Chronic pain syndrome 311483008 G89.4 Continue current medication s Nausea and vomiting 1693 2000 R11.2 Continue IBS FODMAP diet. Gastroesop hageal reflux disease without esophagitis 065913189 K21.9 [id number] [place] [address] 0 07/28/2022 14:19:11 07/28/2022 15:20:34 Irritable bowel syndrome with diarrhea 405769779 K58.0 Add famotidine , restart course of xifaxin. Discussed with her restarting FODMAP diet, avoid caffeinate d and carbonated beverages. Probiotic over-the-c ounter daily. [id number] [place] [address] 0 08/13/2022 09:44:05 08/13/2022 10:51:10 Chronic post-traumatic stress disorder 841519254 F43.12 Needs appt with [facility]. HI packet given. No med changes were made today. I spent approximat francisco 1 hour discussing coping measures with her. [id number] Nayamary [place]en [place] [address] 09/06/2022 11:29:11 09/06/2022 12:03:34 Subacute and chronic vaginitis 302213085 N76.1 Obtain Sureswab. Concern that this is not vaginal candidiasi s, but rather a bacterial vaginosis or sexually transmitte d infection. Will await results of sure swab. Irritable bowel syndrome with diarrhea 228831258 K58.0 Refill phenergan for prn use. [id number] [place] [address] 09/15/2022 09:33:05 09/15/2022 11:36:18 Cough 93110718 R05.9 Acute sinusitis 87638217 J01.90 Patient likely has an acute bacterial [...] Follow-up as below. Seasonal a llergic rhinitis 667702723 J30.2 [id number] Allegra Stephens [place] [address] 0 12/03/2022 09:24:43 12/03/2022 10:01:52 Administration of influenza vaccine 68701443 Z23 Dysuria 67216446 R30.0 Acute urin mayi tract infection 300972001 N39.0 Body mass index 20-24 - normal 678061853 Z68.24 [id number] [place] [address] 0 12/21/2022 11:27:37 12/21/2022 11:53:07 Long-term drug therapy 112315954 Z79.899 Recurrent urinary tract infection 997422770 N39.0 Recheck UA and culture today due to continued sx after antx completion . Generalize d anxiety disorder 86356122 F41.1 Chronic pain syndrome 37 4586839 G89.4 Continue current medication s [id number] Naya Goodwin [place] [address] 0 03/16/2023 09:00:02 03/16/2023 11:14:13 Acute urinary tract infection 406549296 N39.0 Active or passive immunization 063009682 Z23 [id number] [place] [address] 0 03/31/2023 09:28:53 03/31/2023 10:12:40 Dysuria 03474820 R30.0 Acute urin mayi tract infection 055679714 N39.0 [id number] Naya Goodwin [place] [address] 0 04/04/2023 14:17:27 04/04/2023 15:40:57 Recurrent urinary tract infection 927895637 N39.0 Recurrent UTI in patient with hx of vulvar cancer (treated at ) 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 Needs Urology consult with cyctoscopy due to continued UTI over past 6 months with persistent dysuria. Complete the cefdinir. [id number] Naya Goodwin [place] [address] 0 05/06/2023 14:29:03 05/06/2023 15:23:46 Dysuria 44726896 R30.0 Will hold antx pending culture. Continue the diflucan and vaginal estradiol. [id number] Naya Goodwin [place] [address] 0 05/31/2023 08:35:34 05/31/2023 09:32:14 Dysuria 15525118 R30.0 Will hold antx pending culture. Continue the diflucan and vaginal estradiol. F/up with [facility] TECHNIC[facility] and Urology feliberto they have directed her. Degenerati on of lumbar intervertebral disc 30904234 M51.36 Keep appt with [facility] at [facility] as scheduled. [id number] Naya Goodwin [place] [address] 0 06/06/2023 09:33:33 06/06/2023 10:27:35 Acute urinary tract infection 398746376 N39.0 Start Probioitic , continue macrobid,. Follow up with SEMICONDUCTOR EQUIPMENT TECHNICIAN @ [facility] this week as directed. [id number] Naya Goodwin [place] [address] 0 07/01/2023 10:35:29 07/01/2023 11:27:28 Irritable bowel syndrome 03157069 A09 Continue buspar, lorazepam, and protonix with probioitic daily. [id number] [place] [address] 08/26/2023 11:32:11 08/26/2023 12:12:43 Low back pain 952735717 M54.50 Fatigue 33715323 R53.83 Hyperlipidemia 37431703 E78.5 Vitamin D deficiency 347 37817 E55.9 Candidiasis of vagina 72 782327 B37.31 Dysthymia 90338688 F34.1 Unintentio nal weight loss 574000191 R63.4 Body mass index 20-24 - normal 616668158 Z68.[id number] [address] 09/14/2023 08:07:25 09/14/2023 09:04:04 Adult health examination 687215585 Z00.00 BSE reviewed and recommende d . Reviewed calcium needs, exercise, and prevention of osteoporos is . Periodic colonoscop y screening recommende d . Reviewed normal menopause and menopausal symptoms . Mammogram recommende d yearly . Moderate r ecurrent major depression 23941469 F33.1 Increase Lexapro Gastroesop hageal reflux disease without esophagitis 243150362 K21.9 Continue PPI. Irritable bowel syndrome 99457246 A09 Continue buspar, lorazepam, and protonix with probioitic daily. Screening mammography of bilateral breasts 6965476691 65777 Z12.31 [id number] Naya Good[address] [address] 12/12/2023 11:03:04 12/12/2023 11:57:18 Administration of influenza vaccine 05575186 Z23 Moderate r ecurrent major depression 12141990 F33.1 Continue Buspar and Lexapro. Low blood pressure 57081 003 I95.9 Advised on slow position changes and increasing oral hydration. I suspect her hypotensio n is due to opiod use as she denies fluid losses. Body mass index 20-24 - normal 128878054 Z68.21 Gastroesop hageal reflux disease without esophagitis 411271866 K21.9 Continue PPI. [id number] Nayamary ellen [place] [address] 02/27/2024 14:25:06 02/27/2024 15:38:04 Fever 529218140 R50.9 Acute bronchitis 8625364 2 J20.9 Cough The patient presents wet cough. The patient's condition is worsening. Based on the findings today we will begin medication therapy. Reviewed symptomati c care instructio ns, the expected course of these illnesses and explained that coughing can persist for some time. Provided precaution s for signs of worsening disease and instructio ns on contacting us if symptoms worsen. [id number] Nayamary ellen [place] [address] 04/03/2024 13:29:37 04/03/2024 15:13:33 Moderate recurrent major depression 88125165 F33.1 Continue Buspar and Lexapro. Candidiasis of vagina 72 907325 B37.31 Irritable bowel syndrome 42835383 A09 Continue buspar, lorazepam, and protonix with probioitic daily. Gastroesop hageal reflux disease without esophagitis 252789544 K21.9 Continue PPI. Body mass index 20-24 - normal 893030494 Z68.21 [id number] Naya [place] [address] 0 08/24/2024 10:02:51 08/24/2024 10:34:21 Low blood pressure 37988580 I95.9 4792510649 Advised on slow position changes and increasing oral hydration. I suspect her hypotensio n is due to opiod use as she denies fluid losses. Fatigue 92729942 R53.83 18031316 Healthy diet, MVI daily, adequate rest, and labs today. Candidiasis of vagina 72 709969 B37.31 783605 Pain of joint 10015910 M 25.50 8064887626 Cobalamin deficiency 190 019596 E53.8 97096 [id number] [place] [address] 0 11/13/2024 15:34:18 11/14/2024 08:52:35 Vertigo 959821558 R42 50102511 Irritable bowel syndrome 38829557 K58.9 51895166 Continue buspar, lorazepam, and protonix with probioitic daily. Gastroesop hageal reflux disease without esophagitis 789351114 K21.9 Continue PPI. [id number] [place] [address] 0 11/26/2024 14:30:18 11/26/2024 15:38:16 Vertigo 756212877 R42 53815495 [id number] [place] [address] 0 12/19/2024 09:37:34 12/19/2024 10:29:58 Vertigo 875759396 R42 48919 Candidiasis of vagina 72 144045 B37.31 Influenza vaccination given 4601193463 9109 Z23 52970304 Screening mammography 24 475125 Z12.31 68419492 Ex-cigarette smoker 2810 99060 Z87.891 108989 Quit smoking 4 years ago - needs LDCT [id number] [place] [address] 01/07/2025 16:35:27 01/07/2025 17:18:49 Chronic vertigo 0256539758 9105 R42 87119037 Continue meclizine prn and keep ENT follow up. Moderate r ecurrent major depression 36982794 F33.1 Continue Buspar and decrease lexapro to 10 mg daily Health Concerns Section Related Observation LastModified by Organization Detai ls LastModified Time None Recorded Concern Status LastModified by Organization Details LastModified Time None Recorded Advance Directives Directive N: Payers Insurance Date Sequence Insurance Name Policy Number Policy Rhodes Covered Member ID Rhodes Member ID Guarantor Name 01/04/2025 1 BCBS-[place]UNNA [place] MED[place] (MEDICARE REPLACEMENT HMO) [id number] Luna Foreman [id number] Luna Foreman 01/04/2025 [place] RACHEL [employer] [facility] Luna Foreman [id number] Luna Foreman 11/17/2021 1 *SELF PAY* Ca romero Foreman Notes [...] he of Vit B deficiency. Naya Goodwin, MATERIALS ANALYST [address], [place], [address], [facility] [employer], [facility]. 08/26/2024 15:35:43 5 text/html ROS as noted [...] air travel- Stress: Experiencing emotional stress. Naya Goodwin APRN [address], [place], [address], [facility] [employer], [employer]. 11/13/2024 18:17:44 5 text/html ROS as noted [...] can't keep going like this. Naya Goodwin, MATERIALS ANALYST [address] [place], [address], [facility] [employer], [facility]. 11/26/2024 17:09:13 5 text/html ROS as noted in the [...] and chronic pain issues. Naya Goodwin APRN [address] [place], [address], [employer] 12/29/2024 15:50:10 5 text/html ROS as noted in the [...] was found to be good, but the zipper ironer believes crystals caused her vertigo. The Cheryle-Hallpike [...] attention to previously. Naya Goodwin APRN [address] [place], [address], [employer] 01/07/2025 17:28:18 OBGyn Episode No OBEpisode recorded.
== END 2025-01-08 23:59 | disposition home or self-care (01) ==
LOC: RAD 07:50
PROVIDERS: PCP Nurse Practitioner Family; Visit Provider Nurse Practitioner Family
DX: Z12.31 Encounter for screening mammogram for malignant neoplasm of breast (principal); R91.1 Solitary pulmonary nodule; R92.323 Mammographic fibroglandular density, bilateral breasts; Z80.3 Family history of malignant neoplasm of breast; Z87.891 Personal history of nicotine dependence; Z12.2 Encounter for screening for malignant neoplasm of respiratory organs
CPT/HCPCS: 71271; 77063; 77067

== ENCOUNTER 2025-02-11 14:39 | Outpatient (RCR) | payer MEDICARE, MEDICAID, SELFPAY | END 2025-02-11 23:59 | disposition home or self-care (01) | LOC: PT 14:39 | PROVIDERS: PCP Nurse Practitioner Family; Visit Provider Nurse Practitioner Family | DX: H81.11 Benign paroxysmal vertigo, right ear (principal) | CPT/HCPCS: 97163 ==

== ENCOUNTER 2025-02-15 11:47 | Outpatient (CLI) | payer MEDICARE, MEDICAID, SELFPAY ==
--- OUTSIDE RECORDS SUMMARY | 2024-12-25 13:30 | XMS_ITS | Encounter Summary ---
Author Organization [facility] Address [address] [place] [id number] Care Team Providers Care Residential Assistant Name Role Phone Naya Goodwin SOCIAL INSURANCE ADVISER Primary Care Provider Chelsey Mascorro Unavailable Yong Mata MD Unavailable Malena Burton APRN Unavailable [phone] Encounter Details Date Type Department Care Team (Late st Contact Info) Description 12/25/2024 2:30 PM EDT Office Visit [facility] [address] [place] [id number] Nevaeh Harrison, NATALIE [address] [facility] [address] [place] [address] Vaginal itching; Yeast infection of the vagina Social History Tobacco Use Types Packs/Day Years Used Date Smoking Tobacco: Former Cigarettes 1 35 0 04/1985 - 04/2020 Passive Smoke Exposure: Past Smokeless Tobacco: Never Alcohol Use Standard Drinks/Week Comments No 0 (1 standard drink = 0.6 oz pur e alcohol) PHQ-2 Answer Date Recorded Patient Health Questionnaire-2 Score 0 12/25/2024 PHQ-9 Answer Date Recorded Patient Health Questionnaire-9 [...] Sign Reading Time Taken Comments Blood Pressure 136/81 12/25/2024 2:10 PM EDT Pulse 85 12/25/2024 2:10 PM EDT Temperature 36.8 C (98.3 F) 12/25/2024 2:10 PM EDT Respiratory Rate 16 12/25/2024 2:10 PM EDT Oxygen Saturation 94% 12/25/2024 2:10 PM EDT Inhaled Oxygen Concentration - - Weight 60.8 kg (134 lb 0.6 oz) 12/25/2024 2:10 P M EDT Height 160 cm (5' 2.99 ) 12/25/2024 2:10 PM EDT Body Mass Index 23.75 12/25/2024 2:10 PM EDT documented in this encounter Functional Status * Over the past 2 weeks, how often have you been bothered by any of the following problems? Question Answer Date of Assessment Author Little interest or pleasure in doing things Not at all 12/25/2024 2:21 PM EDT Violet Durbin Feeling down, depressed, or hopeless Not at all 11/29 2:21 PM EDT Violet Durbin Patient Health Questionnaire-2 Score 0 11/29 2:21 PM EDT Violet Durbin documented as of this encounter Miscellaneous Notes * Progress Notes - Nevaeh Harrison APRN - 12/25/2024 2:30 PM EDT Images from the original note were not included. Patient ID: Luna Foreman is a 64 y.o. female. Referring Physician: No referring provider defined for this encounter. Primary Care Provider: Naya Goodwin, NATALIE History of Present Illness: Mrs. Luna Foreman underwent simple partial vulvectomy on 03/05/22 showing SANJEEV 3, mucosal margins negative, negative for invasive carcinoma. She reports that since mid October 2024, she has had daily vertigo, headaches, and issues with ambulation. She has been seen in ED at [facility] (had CT head, reports this was negative) and has been referred to ENT by PCP. She is scheduled for 01/16 but does not want to wait this long due to thesymptoms she is having. I recommend ED eval here at for further workup and will also assist with referral to ENT here (pt prefers , other apmt with ). She feels like there is fluid around her ears. She also has recurring yeast infections. Denies VB or pelvic pain. Denies issues urinating or having Bms. Treatment history: cryo in 199002/03/16 HPV + 02/13/17 HPV + 03/10/17 Colpo ECC with CIN1 09/12/17 ASCUS HPV+ 02/10/18 ASCUS HPV+ 03/27/18 Colpo ECC HPV+ 03/21/18 LEEP with mild dysplasia 11/02/18 ASCUS HPV+ 05/07/19 HPV16+. 07/03/19 Endocervical curettage with CIN1, vulvar biopsy with VIN3 07/13/19 left SPV, SANJEEV 3 with positive margins 08/20/19 vulvar biopsy with VIN3 01/28/20 ASCUS HPV + 03/19/20 RA TL BSO, no dysplasia or carcinoma on path [...] Abnormal mammogram PONV (postoperative nausea and vomiting) Recurrent UTI 04/11/23 Sleep apnea Does not use CPAP currently Vulvar cancer ([facility]) 07/13/2019 Malignant neoplasm of vulva, unspecified Weight loss 07/07/23 Past Surgical History: Procedure Laterality Date APPENDECTOMY N/A Appendectomy from [facility] BACK SURGERY 04/23/2024 pt reported CHOLECYSTECTOMY N/A Cholecystectomy from [facility] COLONOSCOPY DENTAL SURGERY N/A Dental surgery from [facility] HYSTERECTOMY N/A Hysterectomy from [facility] OTHER SURGICAL HISTORY N/A Open insertion of stimulator generator into back subcutaneous tissue and fascia from [facility] TONSILECTOMY, ADENOIDECTOMY, BILATERAL MYRINGOTOMY AND TUBES N/A Tonsillectomy With Adenoidectomy from [facility] TUBAL LIGATION N/A Tubal Ligation from [facility] VULVA SURGERY N/A Vulva surgery from [facility] She reports that she quit smoking about [...] WEAR UP TO 12HOURS.), Disp: , Rfl: lidocaine-prilocaine (Emla) 2.5-2.5 % cream, Apply to vulvar biopsy area, Disp: 5 g, Rfl: 1 LORazepam (Ativan) 1 MG tablet, Take 2 tablets (2 mg) by mouth nightly., Disp: , Rfl: meclizine (Antivert) 12.5 MG tablet, Take 1 tablet by mouth 3 times a day., Disp: , Rfl: meclizine (Antivert) 25 MG tablet, Take 1 tablet by mouth 3 times a day., Disp: , Rfl: methocarbamol (Robaxin) 500 MG [...] or vomiting., Disp: 20 tablet, Rfl: 0 Oteseconazole, 12 Week, (Vivjoa) 150 MG capsule therapy, Take 1 capsule by mouth 1 time per week., Disp: 18 each, Rfl: 3 oxyCODONE (Roxicodone) 5 MG immediate release tablet, Take 1 tablet (5 mg) by mouth every 6 hours as needed for moderate pain., Disp: 20 tablet, Rfl: 0 pantoprazole (Protonix) 40 MG EC tablet, Take 1 tablet (40 mg) by mouth daily before breakfast., Disp: , Rfl: Premarin vaginal cream, INSERT 1 GRAM INTO THE VAGINA 2 (TWO) TIMES A WEEK., Disp: 30 g, Rfl: 0 promethazine (Phenergan) 12.5 MG tablet, Take 1 [...] Varenicline Nausea and Vomiting Physical Exam: BSA: 1.64 meters squared Visit Vitals BP 136/81 (BP Location: Right arm, Patient Position: Sitting, BP Cuff Size: Large adult) Pulse 85 Temp 36.8 ??C (98.3 ??F) (Temporal) Resp 16 Ht 1.6 m (5' 2.99 ) Wt 60.8 kg (134 lb 0.6 oz) LMP 02/29/2000 (Approximate) SpO2 94% BMI 23.75 kg/m?? OB Status Hysterectomy Smoking Status Former BSA 1.64 m?? Physical Exam Vitals and nursing note reviewed. Exam conducted with a software technical lead present. Constitutional: Appearance: Normal appearance. HENT: Head: Normocephalic. Eyes: Pupils: Pupils are equal, round, and reactive to light. Cardiovascular: Rate and Rhythm: Normal rate. Pulmonary: Effort: Pulmonary effort is normal. Abdominal: Palpations: Abdomen is soft. Genitourinary: General: Normal vulva. Exam position: Lithotomy position. Comments: Acetowhite change and diffuse redness noted throughout vagina. Previous scarring and biopsy sites indicated above. Red [place] above - previous biopsy at 10 o'clock. 3 o'clock and 4 o'clock elevated lesions with slight acetowhite change Offered biopsies today, declined. Close attention on exam in spring. Will repeat pap smear next visit. Skin: General: Skin is warm. Neurological: General: No focal deficit present. Mental Status: She is oriented to person, place, and time. Results: Labs: WBC Count (10*3/uL) Date/Time Value [...] Pathology: Final Diagnosis (no units) Date/Time Value 10/01/2024 0950 VULVA, BIOPSY: - SQUAMOUS EPITHELIUM WITH NO SIGNIFICANT HISTOLOGIC ABNORMALITY. Comment (no units) Date/Time Value 10/01/2024 0950 Deeper levels are examined. Interpretation (no units) Date/Time Value 10/01/2024 0950 NEGATIVE FOR INTRAEPITHELIAL LESION OR MALIGNANCY Other Findings (no units) Date/Time Value 01/06/2022 [...] dysplasia Assessment and plan 1: S/p RA [facility] BSO for cervical dysplasia. Pap smear 11/02/23 ASCUS/other High Risk HPV (+). Repeat pap smear next visit. Problem 2: SANJEEV 3 Assessment and plan 2: SANJEEV 3 simple partial vulvectomy on 03/05/22 showing SANJEEV 3, mucosal margins negative, negative for invasive carcinoma. No new lesions today. Close attention to area of previous surgery as patient has reporteditching in this area (only scar tissue noted in this area). continue clobetasol and premarin. Problem 3: Multiple medical co-morbidities (chronic back [...] vivjoa, advised not to use alongside diflucan. Problem 6: Vertigo Assessment and plan 6: Has apmt on 01/16 with ENT, would like us to re-place order for referral here at . Also advised ED workup if symptoms worsen. Reports she recently had a negative CT head at [facility]. Team based care includes nurse intake, review of prior documentation, history, physical exam, lab orders, colposcopy, pap, biopsy. discussion of results, discussion of plan of care, and documentation. Encounter time 30 min. NATALIE Christensen [facility] GYNECOLOGY [address] [facility] [address] Dept Loc: [phone] documented in this encounter Plan of Treatment Upcoming Encounters Date Type Department Care Team (Late st Contact Info) Description 03/06/2025 1:00 PM EST Clinical Support [facility] Laboratory Services [address], 1st [place] [address] 03/20/2025 11:20 AM EST Pharmacist Visit [facility] Bone & Mineral Metabolism [address], [address] [place] [address] Neil Saldana, PharmD [address] [place] [address] 03/27/2025 1:00 PM EST Office Visit [facility] [address], [address] [place] [address] Malena Burton APRN [address] [place] [address] 04/17/2025 2:00 PM EST Office Visit [facility] Gynecology [address] [place] [address] Neaveh Harrison APRN [address] [facility] [address] [place] [address] 04/25/2025 1:30 PM EST Office Visit Medical Office [facility] [address], [address] [place] [address] Arnav Ibarra MD [address] [facility] [address] [place] [address] documented as of this encounter Visit Diagnoses Diagnosis Vaginal itching Pruritus of genital organs Yeast infection of the vagina Candidiasis of vulva and vagina documented in this encounter Additional Health Concerns Assessment Noted Time PHQ-9 Depression Total Score: 0 06/21/19 2:21 PM EDT A fall risk assessment has been complete d for the patient 12/25/2024 2:22 PM EDT A Body Mass Index follow-up plan has been documented for the patient 08/22/2024 1:56 PM EDT documented as of this encounter Care Teams Residential Assistant Relationship Specialty Start Date End Date Naya Goodwin APRN [facility] [place] [id number] PCP - General 07/11/20 Chelsey Mascorro [address] [place] [address] [place] [facility] [address] Referring Physician Gynecology 01/19/21 Yong Mata MD [address] [facility] [address] [place] [address] Surgeon Pain Medicine 05/12/21 Malena Burton APRN [address] [place] [address] Nurse Practitioner Urology 06/09/23 documented as of this encounter
--- OUTSIDE RECORDS SUMMARY | 2025-02-15 11:50 | XMS_ITS | Encounter Summary ---
Author Organization Healthcare Address [address] [place] [address] Care Team Providers Care Stopper Maker Name Role Phone Naya Goodwin DENTAL DETAIL REPRESENTATIVE Primary Care Provider [phone] Chelsey Mascorro Unavailable Yong Mata MD Unavailable Malena Burton APRN Unavailable [phone] Encounter Details Date Type Department Care Team (Late Contact Info) Description 05/01/2021 Telephone [facility] Interventional Radiology [address] [place] [address] Erin Dolan RN CH-VASCULAR & INTERVENTIONAL RADIOLOGY [...] [facility] Laboratory Services [address] [facility], 1st [place] [address] 03/20/2025 11:20 AM EST Pharmacist Visit [facility] Bone & Mineral Metabolism [address], [address] [place] [address] Neil Saldana, PharmD [address] [place] [address] 03/27/2025 1:00 PM EST Office Visit [place] [facility] [address], 2nd [place] [address] Malena Burton E, DENTAL DETAIL REPRESENTATIVE [address] [place] [address] 04/17/2025 2:00 PM EST Office Visit [facility] Gyne[facility] [address] [place] [address] ChristyNevaeh romero S, DENTAL DETAIL REPRESENTATIVE [address] [place] [address] 04/25/2025 1:30 PM EST Office Visit Medical Office Building [facility] [address], [address] [place] [address] Arnav Ibarra MD [address] [place] [address] documented as of this encounter [...] documented as of this encounter Care Teams Stopper Maker Relationship Specialty Start Date End Date Naya Goodwin, DENTAL DETAIL REPRESENTATIVE [address] [id number] PCP - General 07/11/20 Chelsey Mascorro [address] [place] [address] Referring Physician Gynecology 01/19/21 Yong Mata MD [facility] [address] [place] [address] Surgeon Pain Medicine 05/12/21 Malena Burton APRN [id number] [place] [address] Nurse Practitioner Urology 06/09/23 documented as of this encounter
--- OUTSIDE RECORDS SUMMARY | 2025-02-15 11:50 | XMS_ITS | Encounter Summary ---
Author Organization [facility] Address [address] [place] [address] Care Team Providers Care Lube Technician Name Role Phone Naya Goodwin COUNTER SERVER Primary Care Provider [phone] Chelsey Mascorro Unavailable Yong Mata MD Unavailable Malena Burton APRN Unavailable Encounter Details Date Type Department Care Team [...] hopeless Not at all 11/29 2:21 PM Violet Farmer Patient Health Questionnaire-2 Score 0 11/29 2:21 PM EDT Violet Durbin documented as of this encounter Plan of Treatment Upcoming Encounters Date Type Department Care Team (Late st Contact Info) Description 03/06/2025 1:00 PM EST Clinical Support [facility] Laboratory Services [address] [facility], 1st [place] [address] 03/20/2025 11:20 AM EST Pharmacist Visit [facility] Bone & Mineral Metabolism [address] [facility], [address] [place] [address] Neil Saldana, PharmD [address] [facility] [address] [place] [address] 03/27/2025 1:00 PM EST Office Visit [place] [facility] [address], 2nd [place] [address] Malena Burton E, COUNTER SERVER [address] [place] [address] 04/17/2025 2:00 PM EST Office Visit [facility] Gynecology [address] [place] [address] Nevaeh Harrison S, COUNTER SERVER [address] [facility] [address] [place] [address] 04/25/2025 1:30 PM EST Office Visit Medical Office Building Surgery Sp[facility] Joint [address] [facility], [address] [place] [address] Arnav Ibarra MD [address] [place] [address] documented as of this encounter [...] documented as of this encounter Care Teams Lube Technician Relationship Specialty Start Date End Date Naya Goodwin APRN [facility] [place] [address] PCP - General 07/11/20 Chelsey Mascorro [address] [place] [address] [place], [place] [id number] Referring Physician Gynecology 01/19/21 Yong Mata MD [facility] [address] [place] [address] Surgeon Pain Medicine 05/12/21 Malena Burton APRN [address] [facility] [address] [place] [address] Nurse Practitioner Urology 06/09/23 documented as of this encounter
--- OUTSIDE RECORDS SUMMARY | 2025-02-15 11:50 | XMS_ITS | Encounter Summary ---
Author Organization [facility] Address [address] [place] [address] Care Team Providers Care Agricultural Mechanic Name Role Phone Naya Goodwin SEGMENTAL WALL INSTALLER Primary Care Provider [phone] Chelsey Mascorro Unavailable Yong Mata MD Unavailable Malena Burton APRN Unavailable [phone] Encounter Details Date Type Department Care Team (Late Contact Info) Description 05/10/2023 Orders Only External Location [address] [place] [address] Provider, External Social History Tobacco Use Types [...] Description 03/06/2025 1:00 PM EST Clinical Support [facility] Laboratory Services [address] [facility], 1st [place] [address] 03/20/2025 11:20 AM EST Pharmacist Visit [facility] Bone & Mineral Metabolism [address] [facility], [address] [place] [address] Neil Saldana, PharmD [address] [place] [address] 03/27/2025 1:00 PM EST Office Visit [place] [facility] [address], 2nd [place] [address] Malena Burton E, SEGMENTAL WALL INSTALLER [address] [place] [address] 04/17/2025 2:00 PM EST Office Visit [facility] [address] [place] [address] Nevaeh Harrison S, SEGMENTAL WALL INSTALLER [address] [facility] [address] [place] [address] 04/25/2025 1:30 PM EST Office Visit Medical Office Building Surgery [facility] [address] [facility], [address] [place] [address] Arnav Ibarra MD [address] [facility] [address] [place] [address] documented as of this encounter [...] documented as of this encounter Care Teams Agricultural Mechanic Relationship Specialty Start Date End Date Naya Goodwin APRN [facility] [place], [place] [id number] PCP - General 07/11/20 Chelsey Mascorro [address] [place] [address] [place] [address] Referring Physician Gynecology 01/19/21 Yong Mata MD [address] [place], [place] [address]E [address] [place], [place] [address] Surgeon Pain Medicine 05/12/21 Malena Burton APRN [address] [facility] [address] [place] [address] Nurse Practitioner Urology 06/09/23 documented as of this encounter
--- OUTSIDE RECORDS SUMMARY | 2025-02-15 11:50 | XMS_ITS | Clinical Summary ---
Author Organization [facility] Address [address] [place] [address] Care Team Providers Care Auto Salvage Worker Name Role Phone Naya Goodwin APRN Primary Care Provider [phone] Chelsey Mascorro Unavailable Yong Mata MD Unavailable Malena Burton APRN Unavailable [phone] Allergies Active Allergy Reactions Criticality Noted Date [...] by mouth daily. 30 tablet 11 08/15/19 25 026 Active Oteseconazole, 12 Week, (Vivjoa) 150 [...] by mouth 3 times a day. Active nystatin (Mycostatin) creamIndications:V aginal itching,Yeast infection of the vagina Apply to effected area twice daily or as needed to help with itching. 30 g 1 12/26/19 25 Active clobetasol (Temovate) 0.05 % cream Apply topically twice weekly. 30 g 12/26/19 25 Active estrogens, conjugated, (Premarin) vaginal cream Insert into the vagina daily. 30 g 12/26/19 25 025 Active Problems Problem Noted [...] [address] [place] [address] Nevaeh Harrison APRN Vaginal itching; Yeast infection of the vagina 12/25/2024 Travel 12/13/2024 Telephone [facility] [address], 2nd [place] [address] Malena Burton APRN from Last 3 Months Immunizations Immunization Administration [...] Description 03/06/2025 1:00 PM EST Clinical Support [facility] Laboratory Services [address] [facility], 1st [place] [address] 03/20/2025 11:20 AM EST Pharmacist Visit [facility] Bone & Mineral Metabolism [address] [facility], [address] [place] [address] Neil Saldana, PharmD [address] [facility] [address] [place] [address] 03/27/2025 1:00 PM EST Office Visit [place] [facility] [address], 2nd [place] [address] Malena Burton, GROCERY DEPARTMENT MANAGER [address] [place] [address] 04/17/2025 2:00 PM EST Office Visit [facility]ne[facility] [address] [place] [address] Nevaeh Harrison S, GROCERY DEPARTMENT MANAGER [address] [facility] [address] [place] [address] 04/25/2025 1:30 PM EST Office Visit Medical Office Building Surgery Spine & Joint [address] [facility], [address] [place] [address] Arnav Ibarra MD [address] [facility] [address] [place] [address] Health Maintenance Due Date Last Done Comments [facility]-Medicare Annual Wellness (AWV) 1962 [facility]-Infant/Child/Adol SDOH Screenings 1962 [facility]- SDOH Screenings 1980 [facility]-Adult SDOH Screenings 1980 [facility]-DTaP,Tdap,and Td Vaccines (1 - Tdap) 1981 [facility]-Pneumococcal Vaccine: 50+ Years (1 of 2 - PCV) 1981 CT Colonography 11/25/2007 Colonoscopy 11/25/2007 FIT-DNA 11/25/2007 FIT 11/25/2007 FOBT 11/25/2007 Sigmoidoscopy 11/25/2007 [facility]-Colorectal Cancer Screening 11/25/2007 Lung Cancer Screening Shared Decision Making 2012 [facility]-Breast Cancer Screening 2012 [facility]-Zoster Vaccines (1 of 2) 2012 [facility]-IVLDZ-49 Vaccine ( season) 2024 03/16/2023, 10/09/2021, 02/25/2021, Additional history exists [facility]-Lung Cancer Screening 11/27/2024 11/28/2023, 01/2022 [facility]-Bone Density Scan 08/14/2025 08/14/2024 , 05/10/2023, 05/10/2023 [facility]-Depression Screening 12/25/202512/25/2 025, 06/20/2024, 01/25/2024, Additional history exists [facility]-RSV Vaccine: 60+ Years or (1 - 1-dose 75+ series) 2037 [facility]-Hepatitis A Vaccines Aged Out 2018, 01/28 No longer eligible based on patient's age to complete this topic [facility]-HIV Screening Completed 10/01/2024, , 08/08/2021 [facility]-Hepatitis C Screening Completed 2024, 08/08/2021, 08/08/2021 [facility]-Influenza Vaccine Completed 12/19/2024 , 12/12/2023, 12/03/2022, Additional history exists HPV Vaccines (No Doses Required) Completed [facility]-HIB Vaccines Aged Out No longer e ligible based on patient's age to complete this topic [facility]-IPV Vaccines Aged Out No longer e ligible based on patient's age to complete this topic [facility]-Rotavirus Vaccines Aged Out No lo nger eligible based on patient's age to complete this topic Medical Devices Implanted Type Area Hat Block Bench Hand Device Identifier Shelf Expiration Date Model / Serial / Lot Single Inner Setscrew - [id number] Implanted:Qty: 4 on 04/23/2024 by Arnav Ibarra MD at [facility] Screw N/A: Spine Lumbar De[employer] [id number] / / N/A Screw 5.5mm Viper Ti Fen Crtcl Polyax 7mm X 40mm - [id number] Implanted:Qty: 2 on 04/23/2024 by Arnav Ibarra MD at [facility] Screw N/A: Spine Lumbar [employer]ine [employer] [id number] / / N/A Screw 5.5mm Viper Ti Fen Crtcl Polyax 6mm X 40mm - [id number] Implanted:Qty: 2 on 04/23/2024 by Arnav Ibarra MD at [facility] Screw N/A: Spine Lumbar [employer] [id number] / / N/A Nerve Stimulator N/A: Back Matrix Fibergraft Bg Medium 6.25cc - [id number] Implanted:Qty: 1 on 04/23/2024 by Arnav Ibarra MD at [facility] N/A: Spine Lumbar [employer] [id number] 10/25/2026 [id number] / / [id number] Description:Surgeon uses the patients own blood to prepare Pre-Lordosed Terrance W/ Line 35mm - [id number] Implanted:Qty: 2 on 04/23/2024 by Arnav Ibarra MD at [facility] N/A: Spine Lumbar [employer]ine [employer] [id number] / / N/A Procedures Procedure Name Priority [...] Antibody/Antigen Screen (10/01/2024 10:50 AM EDT) Pathologist [facility] HIV 1 & 2 Antibody/Antigen Screen Non Reactive Non Reactive 10/01/2024 10:50 AM EDT [facility] Comment:Screening for HIV 1 & 2 antibodies, and P24 antigen is NONREACTIVE. No confirmatory testing is required. Blood Venous blood specimen / Unknown 10/01/2024 10:10 AM EDT us [facility] GROCERY DEPARTMENT MANAGER LAB BLOOD ORDERABLES Final R esult [facility] [address] [place] [address] * Hepatitis C Antibody (10/01/2024 10:50 AM EDT) Pathologist [facility] Hepatitis C Antibody Negative Negative 10/01/2024 10:50 AM EDT [facility] Blood Venous blood specimen / Unknown 10/01/2024 10:10 AM EDT us [facility] GROCERY DEPARTMENT MANAGER LAB BLOOD ORDERABLES Final R esult [facility] [address] [place] [address] * Dexa Bone Density (08/14/2024 12:46 PM EDT) Anatomical Region Laterality Modality L-spine Radiographic Mitra ging Narrative 08/18/2024 9:02 PM EDT [facility] - Bone & Mineral Metabolism Clinic [address] [place] [address] DXA Bone Densitometry Report: [08/14/2024] BMD test performed using the Talkito DXA System (analysis version: 14.10) manufactured by [employer]. REFERRING PROVIDER: Dr. Sana Strong MD CLINICAL [...] change in BMD). us Sana Strong MD IM DXA PROCEDURES Final [...] on 11/28/2023 5:01 PM us Nevaeh Harrison APRN IMG CT PROCEDURES Final Resu lt from Last 3 Months or Most Recently Relevant to [place] [address] [facility] MEDICARE Advance Directives * Full Code (Latest Code Status on File) Date Activated Date Inactivated Comments 04/23/2024 12:16 PM 04/24/2024 4:00 PM Question Answer Comments Patient has decision-making capacity? Yes * Full Code Date Activated Date Inactivated Comments 08/08/2021 10:42 PM 08/14/2021 5:13 PM Question Answer Comments Patient has decision-making capacity? Yes Care Teams Auto Salvage Worker Relationship Specialty Start Date End Date Naya Goodwin APRN [address] [place] [address] [place] [address] PCP - General 07/11/20 Chelsey Mascorro [address] [place] [address] [place] [address] Referring Physician Gynecology 01/19/21 oYng Mata MD [facility] [address] [place] [address] Surgeon Pain Medicine 05/12/21 Malena Burton APRN [address] [facility] [address] [place] [address] Nurse Practitioner Urology 06/09/23
--- OUTSIDE RECORDS SUMMARY | 2025-02-15 11:51 | XMS_ITS | Encounter Summary ---
Author Organization [facility] Address [address] [place] [address] Care Team Providers Care Estate Administrator Name Role Phone Naya Goodwin LAMINATOR PREFORMS Primary Care Provider [phone] Chelsey Mascorro Unavailable Yong Mata MD Unavailable Malena Burton APRN Unavailable [phone] Encounter Details Date Type Department Care Team (Late st Contact Info) Description 10/01/2024 Lab Requisition [facility] [address] [place] [address] Ara Byrnes MD [address] [place] [address] Unspecified general medical examination Social [...] things Not at all 10/01/2024 8:49 AM MIACELAT Agustin Leblanc ae Feeling down, depressed, or hopeless More than half the days 10/01/2024 8:49 AM Marjorie Brewer Patient Health Questionnaire-2 Score 2 10/01/2024 8:49 AM Marjorie Brewer * How difficult have these problems made it for you to do your work, take care of things at home, or get along with other people? Answer Date of Assessment Author Somewhat difficult 10/01/2024 8:49 AM MICAELAT Marjorie Cruz documented as of this encounter Plan of Treatment Upcoming Encounters Date Type Department Care Team (Late st Contact Info) Description 03/06/2025 1:00 PM EST Clinical Support [facility] Laboratory Services [address] [facility], 1st [place] [address] 03/20/2025 11:20 AM EST Pharmacist Visit [facility] Bone & Mineral Metabolism [address] [facility], [address] [place] [address] Neil Saldana, PharmD [address] [facility] [address] [place] [address] 03/27/2025 1:00 PM EST Office Visit [place] [facility] [address], 2nd [place] [address] Malena Burton E, LAMINATOR PREFORMS [address] [place] [address] 04/17/2025 2:00 PM EST Office Visit [facility] Gyne[facility] [address] [place] [address] Nevaeh Harrison S, LAMINATOR PREFORMS [address] [facility] [address] [place] [address] 04/25/2025 1:30 PM EST Office Visit Medical Office Building Surgery Spine & Joint [address] [facility], [address] [place] [address] Arnav Ibarra MD [address] [facility] [address] [place] [address] documented as of this encounter [...] Reactive Non Reactive 10/01/2024 11:30 AM EDT [facility] Comment:Screening for HIV 1 & 2 antibodies, and P24 antigen is NONREACTIVE. No confirmatory testing is required. Blood Venous blood specimen / Unknown 10/01/2024 9:42 AM EDT 10/01/2024 10:12 AM EDT Ara Byrnes MD LAB BLOOD ORDERABLES Final Re sult [facility] [address] [place] [address] * Source, BBFE HCV Quant PCR (10/01/2024 9:42 AM EDT) [facility] Hepatitis C Virus (HCV) Quantitative Interpretation Not Detected Not Detected. 10/03/2024 2:38 PM EDT [facility] Blood Venous blood specimen / Unknown 10/01/2024 9:42 AM EDT 10/01/2024 10:12 AM EDT Narrative [facility] - 10/03/2024 2:38 PM EDT The M.dot M2000 HCV test is a Real Time [...] ORDERABLES Final Re sult Performing Organization Address City/[facility]/ZIP [place] [address] * Source, BBFE Hepatitis B S AG (10/01/2024 9:42 AM EDT) [facility] Hepatitis B Surf Antigen Negative Negative 10/01/2024 11:30 AM EDT [facility] Blood Venous blood specimen / Unknown 10/01/2024 9:42 AM EDT 10/01/2024 10:12 AM EDT Ara Byrnes MD LAB BLOOD ORDERABLES Final Re sult Performing Organization Address City/[facility]/ZIP Co de Phone Number [facility] [address] [place] [address] documented in this encounter Visit Diagnoses Diagnosis [...] documented as of this encounter Care Teams Estate Administrator Relationship Specialty Start Date End Date Naya Goodwin APRN [facility] [place] [address] PCP - General 07/11/20 Chelsey Mascorro [address] [place] [address] [place] [address] Referring Physician Gynecology 01/19/21 Yong Mata MD [facility] [address] [place] [address] Surgeon Pain Medicine 05/12/21 Malena Burton APRN [address] [facility] [address] [place] [address] Nurse Practitioner Urology 06/09/23 documented as of this encounter
--- OUTSIDE RECORDS SUMMARY | 2025-02-15 11:51 | XMS_ITS ---
Author Organization [facility] Address [address] [place] [address] Care Team Providers Care Client Services Director Name Role Phone Naya Goodwin APRN Primary Care Provider [phone] Chelsey Mascorro Unavailable Yong Mata MD Unavailable Malena Burton APRN Unavailable [phone] Active Problems Problem Noted Date Diagnosed Date [...]
--- NOTE | 2025-02-15 12:05 | CT_ITS ---
FINAL REPORT CLINICAL HISTORY: OTALGIA RIGHT EAR COMPARISON: None FINDINGS: CT NECK WITH CONTRAST TECHNIQUE: Axial CT with IV contrast administration. This study was performed with techniques to keep radiation doses as low as reasonably achievable, (ALARA). Individualized dose reduction techniques using automated exposure control or adjustment of mA and/or kV according to the patient's size were employed. FINDINGS: The salivary glands are unremarkable in appearance. There are postoperative changes of the ethmoid and maxillary sinuses without evidence of acute sinusitis. The mastoid air cells are clear. The middle ear compartments are clear. The larynx and thyroid are unremarkable in appearance. No mass or adenopathy is identified. Note is made of a spinal stimulator extending into the dorsal cervical spine. There is no abscess. IMPRESSION: 1. Postoperative changes in the ethmoid and maxillary sinuses without evidence of sinusitis. 2. The mastoid air cells and middle ear compartments are normal in appearance without evidence of fluid or soft tissue thickening. This study was performed using automated techniques to achieve radiation exposure as low as reasonably achievable Reviewed, Interpreted and Dictated by Lolly Navarrete MD Transcribed by Elida Dallas Authenticated and [facility]
[2025-02-15 12:17] LABS: Blood Urea Nitrogen 11 mg/dl (7-17); Creatinine,Serum 1.10 mg/dl (0.52-1.04); Estimated Glomerular Filt Rate 50 ml/min (>60); GFR (African American) 61 ML/MIN (>60)
[2025-02-15] MEDS: IOPAMIDOL-370 (76%);100ML BOTTLE 75 ML IV (12:39)
[2025-02-15] MEDS: SODIUM CHLORIDE 0.9% 10ML SYR (RAD ONLY) 10 ML IV (12:39)
== END 2025-02-15 23:59 | disposition home or self-care (01) ==
LOC: RAD 11:48
PROVIDERS: PCP Nurse Practitioner Family; Visit Provider Internal Medicine
DX: H92.01 Otalgia, right ear (principal); Z98.890 Other specified postprocedural states
CPT/HCPCS: 36415; 70491; 82565; 84520; Q9967